=== PATIENT | female | born 1940 | race Caucasian/White ===

== ENCOUNTER → 2017-09-27 17:18 | Outpatient (CLI) | payer MEDICARE, SELFPAY ==
[2017-09-27 18:32] LABS: Amphetamine Urine VISTA NEGATIVE (<1000 ng/mL); Barbiturate Urine VISTA NEGATIVE (< 200 ng/mL); Benzodiazepine Urine VISTA NEGATIVE (< 200 ng/mL); Cocaine Urine VISTA NEGATIVE (< 300 ng/mL); Ecstacy Urine VISTA NEGATIVE (< 500 ng/mL); Methadone Urine VISTA NEGATIVE (< 300 ng/mL); PCP Urine VISTA NEGATIVE (< 25 ng/mL); THC Urine VISTA NEGATIVE (< 50 ng/mL); Vista UDS pH Range 5
== END ==
PROVIDERS: Family Provider Internal Medicine; PCP Internal Medicine; Visit Provider Anesthesiology Pain Medicine
DX: F11.20 Opioid dependence, uncomplicated (principal)
CPT/HCPCS: 80307

== ENCOUNTER → 2017-10-31 13:12 | Outpatient (CLI) | payer MEDICARE, SELFPAY ==
--- NOTE | 2017-10-31 13:30 | SP.MBSS_ITS ---
PRIMARY / SECONDARY DIAGNOSIS: dysphagia (R13.10) REFERRING PHYSICIAN: Gregoria Bae CNP CURRENT DIET: regular textures, thin liquids DENTITION: WFL MENTAL STATUS: WNL RESPIRATORY STATUS: O2 via room air; utilizes O2 at 2L/min in evenings PREVIOUS MODIFIED BARIUM SWALLOW STUDY: REASON FOR REFERRAL: Patient is a 77 year old female referred for a modified barium swallow (MBS) study to objectively assess the Patients oropharyngeal swallow function under fluoroscopy due to reported dysphagia primarily during ingestion of liquids, with the Patient reporting globus sensation with belching leading to occasional reflux into the oral cavity. Patient further reports sensation of oral stasis with improvement in symptoms when lifting the chin during deglutition. Patient reports multiple falls within the last year, with what sounds like vertigo upon description, reports and presents with gait instability and mild shuffling upon ambulation to the fluoroscopy suite. Patient reports involuntary jerking motions of the torso and extremities, again noted during ambulation, though reports uptake at rest during the evenings. Noted mild reduction in emotional response / facial masking, mild reduction in vocal intensity with the Patient somewhat trailing off during longer communication attempts. Patient reports symptoms appearing to progress in nature. Patient currently resides at [facility], 09/12/2017 complete pulmonary function tests secondary to diagnosis of dyspnea revealed moderately severe mixed ventilatory defect with no significant response to bronchodilators and a symmetric reduction diffusing capacity; significant worsening over the last 2+ years. 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 MEDICAL HISTORY: Breast cancer status post mastectomy aromasin therapy (no chemoradiation therapy), chronic obstructive pulmonary disease, emphysema, coronary artery disease status post coronary artery bypass graft and stent placement, acute myocardial infarction, paroxysmal supraventricular and ventricular tachycardia, paroxysmal atrial fibrillation, diastolic heart failure, status post implantation of internal cardiac defibrillator and pacemaker, benign hypertension, hyperlipidemia, diabetes mellitus, hypothyroidism, depression, legally blind, hard of hearing STUDY FINDINGS: Patient participated in a Modified Barium Swallow (MBS) study on 10/31/2017. Dr. Hui was the radiologist present for this evaluation. This study was recorded in the lateral view and images were sent to PACs for storage. The following consistencies were presented to this patient for analysis of oropharyngeal swallow function: thin liquids, pudding, and a regular textured, Jes Doone cookie. Results of the MBS are as follows: PENETRATION / ASPIRATION SCALE (AVILES): 1 = does not enter airway 2 = enters airway/above vocal folds/ejected 3 = enters airway/above vocal folds/not ejected 4 = enters airway/contacts vocal folds/ejected 5 = enters airway/contacts vocal folds/not ejected 6 = enters airway/below vocal folds/ejected 7 = enters airway/below vocal folds/not ejected despite effort 8 = enters airway/below vocal folds/no effort PENETRATION / ASPIRATION SCALE (SCORE): Thin liquid - 5 mL tsp.: 2 Thin liquids via cup (large sip): 2 Thin liquids via cup (single sip): 2 Thin liquids via straw (single sip): 2 Thin liquids via straw (single sip): 2 Thin liquids via straw (chin tuck): 1 Thin liquids via straw (chin tuck): 2 Thin liquids via straw (chin tuck): 1 Pudding via spoon: 1 Regular textured cookie: 1 Thin liquids via straw (chin tuck): 1 IMPRESSION: DIAGNOSIS: mild oropharyngeal dysphagia (R13.12) ORAL PHASE CHARACTERIZED BY: LABIAL SEAL: no labial escape TONGUE CONTROL DURING BOLUS MANIPULATION: intermittent posterior escape of less than half of bolus BOLUS PREPARATION / MASTICATION: slow prolonged chewing/mashing with anterior munching quality BOLUS TRANSPORT / LINGUAL MOTION: repetitive/disorganized tongue motion with intermittent delayed initiation of tongue motion (2-3 seconds) ORAL RESIDUE: trace residue lining oral structures PHARYNGEAL PHASE CHARACTERIZED BY: INITIATION OF PHARYNGEAL SWALLOW: bolus head in pyriforms at first hyoid excursion SOFT PALATE ELEVATION: no bolus between soft palate and pharyngeal wall LARYNGEAL ELEVATION: partial superior movement of thyroid cartilage/partial approximation of arytenoids cartilage to epiglottic petiole ANTERIOR HYOID EXCURSION: complete anterior movement EPIGLOTTIC MOVEMENT: complete epiglottic inversion LARYNGEAL VESTIBULE CLOSURE AT HEIGHT OF SWALLOW: complete laryngeal vestibule closure with no air/contrast in laryngeal vestibule PHARYNGEAL STRIPPING WAVE: pharyngeal stripping wave present / complete PHARYNGOESOPHAGEAL SEGMENT OPENING: complete distension and complete duration with no obstruction of flow TONGUE BASE RETRACTION: no contrast between tongue base and posterior pharyngeal wall PHARYNGEAL RESIDUE: trace residue within or on pharyngeal structures ( pharyngoesophageal segment opening) ESOPHAGEAL PHASE CHARACTERIZED BY: ESOPHAGEAL BOLUS CLEARANCE IN THE UPRIGHT POSITION: mild esophageal retention EFFECTS OF TREATMENT STRATEGIES ATTEMPTED: Chin tuck posture = moderately effective Anterior lean = moderately effective Reduced bolus size = moderately effective DIET TEXTURE RECOMMENDATIONS: Will recommend a regular-soft textured, thin liquid diet. 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 Oral phase primarily marked by suboptimal lingual control with noted mild repetitive lingual motions typically identified in neurologically impaired individuals (i.e. dementia, Parkinsons disease and subtypes) with intermittent delayed initiation of tongue motion (2-3 seconds in length) resulting in intermittent premature bolus loss; and mild mastication inefficiency with slow prolonged chewing / mashing with anterior munching quality (albeit effective). Pharyngeal phase marked by impaired pharyngeal swallow onset timing resulting in suboptimal bolus location upon swallow onset contributing to prandial penetration with consistent laryngeal vestibule pressure generated to expel penetrated material. All deficits ameliorated with bolus volume adjustments and execution of the chin tuck posture. Prominent non- obstructive cricopharyngeal bar located at the C-5 C-6 level. RECOMMENDATIONS: Patient may benefit from further skilled speech-language intervention targeting continued diet texture management; and training / implementation of recommended compensatory strategies. 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 ADDITIONAL COMMENTS/RECOMMENDATIONS: Results and recommendations were discussed with the Patient immediately following MBS completion, with the Patient verbalizing understanding and agreement with all recommendations and education provided. IMAGE COUNT: [id number] G-CODES: SWALLOWING [id number] Current Status: CJ SWALLOWING [id number] Goal Status: CI SWALLOWING [id number] Discharge Status:
--- NOTE | 2017-10-31 13:30 | RAD_ITS ---
STUDY: SWALLOWING STUDY REASON FOR EXAM: Female, 77 years old. Dysphagia. TECHNIQUE: The examination was performed with Speech Pathology in attendance. Under fluoroscopic observation, the patient ingested thin barium, thick barium, barium pudding, and barium coated cracker. FLUOROSCOPY TIME: 1:34 minutes/seconds. 2364 fluoroscopic images were obtained. RADIOLOGIST INVOLVEMENT: Radiologist was present and providing direct supervision. COMPARISON: None. FINDINGS: The following was observed during swallowing of the various mixtures of barium: Thin Barium: Transient penetration with ejection with ingestion of thin liquids. This improves with the use of a straw. Barium Pudding: There was no evidence of aspiration or laryngeal penetration. Barium Coated Cracker: There was no evidence of aspiration or laryngeal penetration. RAD/Swallowing Function w/Video IMPRESSION: Transient penetration with ejection with ingestion of thin liquids. This improves with the use of a straw. The swallow study findings were discussed with the patient by the speech pathologist at the conclusion of the examination. Please see speech pathology report for more information and recommendations. Electronically Signed: Sal Hui MD at 14:11 EDT Tel [phone], Service support ,
== END ==
PROVIDERS: Family Provider Internal Medicine; PCP Internal Medicine; Visit Provider Nurse Practitioner
DX: R13.10 Dysphagia, unspecified (principal)
CPT/HCPCS: 74230; 92611

== ENCOUNTER → 2017-11-01 16:25 | Outpatient (CLI) | payer MEDICARE, SELFPAY ==
--- NOTE | 2017-11-01 16:27 | RAD_ITS ---
STUDY: X-RAY CHEST REASON FOR EXAM: Female, 77 years old. ICD change TECHNIQUE: Frontal and lateral views COMPARISON: January 10, 2016 FINDINGS: There is again noted a left-sided pacemaker. Stable sternotomy wires. The lungs are expanded. There is mild interstitial prominence. Normal size heart. Normal mediastinum and devonte. Normal visualized pulmonary arteries. Calcified aortic arch and descending thoracic aorta. Degenerative changes of the thoracic spine. Normal visualized ribs, clavicles, and shoulders. There is no demonstrated abnormality of the visualized soft tissue structures of the upper abdomen. RAD/Chest PA and Lateral IMPRESSION: Mild pulmonary interstitial prominence. Electronically Signed: Basil Zhang DO at 23:59 EDT Tel [phone], Service support ,
== END ==
PROVIDERS: Family Provider Internal Medicine; PCP Internal Medicine; Visit Provider Nurse Practitioner Family
DX: I25.10 Atherosclerotic heart disease of native coronary artery without angina pectoris (principal); Z95.810 Presence of automatic (implantable) cardiac defibrillator; I47.2 Ventricular tachycardia
CPT/HCPCS: 71046

== ENCOUNTER → 2017-11-01 16:57 | Outpatient (CLI) | payer MEDICARE, SELFPAY ==
[2017-11-01 17:20] LABS: Hematocrit 34.8 % (37-47); Hemoglobin 11.8 g/dl (12.0-15.0); Mean Corp Hgb Conc 33.9 g/gl (32-36); Mean Corpuscular Hgb 37.5 pg (27.0-32.0); Mean Corpuscular Volume 110.5 fL (81-99); Mean Platelet Vol. 13.3 fl (6.2-12.0); Platelet Count 223 K/mm3 (150-450); RBC Distribution Width CV 16.3 % (11.6-14.6); RBC Distribution Width SD 61.9 fl (35.1-43.9); Red Blood Count 3.15 M/mm3 (4.2-5.4); White Blood Count 11.3 K/mm3 (4.4-11.0)
[2017-11-01 17:30] LABS: International Normalized Ratio 1.1
[2017-11-01 17:34] LABS: Scan Indicated on CBC? Y/N NO
[2017-11-01 17:57] LABS: Anion Gap 8 (5-15); BUN 18 mg/dL (7-18); BUN/Creat Ratio 16.4 RATIO (10-20); Calcium,Total 9.4 mg/dL (8.5-10.1); Chloride 104 mmol/L (98-107); EST Glomerular Filtration Rate 51 mL/min (>60); Est Glom Filt Rate - Afr Amer 62 mL/min (>60); Glucose 117 mg/dL (74-106); Potassium 3.9 mmol/L (3.5-5.1); Sodium Level 142 mmol/L (136-145); Thyroid Stim Hormone (TSH) 2.14 uIU/mL (0.358-3.74)
== END ==
PROVIDERS: Family Provider Internal Medicine; PCP Internal Medicine; Visit Provider Nurse Practitioner Family
DX: R53.83 Other fatigue (principal); I25.5 Ischemic cardiomyopathy; Z95.1 Presence of aortocoronary bypass graft; I25.10 Atherosclerotic heart disease of native coronary artery without angina pectoris; R06.02 Shortness of breath; Z95.810 Presence of automatic (implantable) cardiac defibrillator; I47.2 Ventricular tachycardia
CPT/HCPCS: 71046; 80048; 84443; 85027; 85610

== ENCOUNTER → 2017-11-08 10:35 | Day surgery (SDC) | payer MEDICARE, SELFPAY ==
[2017-11-07 12:05] VITALS: BMI 25.9
--- NOTE | 2017-11-08 13:01 | OP.PCM_ITS ---
Operative Report Date of Procedure: 11/08/17 Preoperative diagnosis is device at end of life for normal battery depletion. Postoperative diagnosis same as above. After informed consent and IV antibiotics the patient was brought to the [facility] catheterization laboratory and the skin over the device was prepped and draped in the usual sterile manner. Intermittent boluses of Versed, fentanyl and propofol were used for sedation and analgesia as well as 1% subcutaneous lidocaine. An incision was made over the pre-existing device. Using blunt and Bovie dissection the pocket was opened and the device was removed. Careful attention was paid not to injure the pre-existing leads. The leads were removed from the device header and they were interrogated. There is normal lead function. Hemostasis was obtained. The pocket was flushed with antibiotic solution. The sponge and needle count were correct. The new device was brought to the field. The leads were placed in the appropriate position in the header and secured by the set screw. The device is a single chamber [place] TOOVIA dual coil ICD. The leads and the device were then placed in the pocket. The pocket was closed with a deep layer of running 2-0 Vicryl, a superficial layer of running 4-0 Vicryl, skin with Steri-Strips which were covered with a rolled 4 x 4 and Tegaderm. Patient left the room with the device programmed to proper parameters and there were no complications. All lead parameters were tested and found to be functionally normal. Lead and device serial and model numbers are available in the chart documents provided by the device company sales donor recruitment representative procedure summary.
== END ==
PROVIDERS: Family Provider Internal Medicine; PCP Internal Medicine; Visit Provider Internal Medicine Cardiovascular Disease
DX: Z45.010 Encounter for checking and testing of cardiac pacemaker pulse generator [battery] (principal); I25.5 Ischemic cardiomyopathy; I47.2 Ventricular tachycardia; I38 Endocarditis, valve unspecified; I11.0 Hypertensive heart disease with heart failure; I50.42 Chronic combined systolic (congestive) and diastolic (congestive) heart failure; I47.1 Supraventricular tachycardia; I25.2 Old myocardial infarction; I25.119 Atherosclerotic heart disease of native coronary artery with unspecified angina pectoris; I07.1 Rheumatic tricuspid insufficiency; I35.0 Nonrheumatic aortic (valve) stenosis; J44.9 Chronic obstructive pulmonary disease, unspecified; E11.9 Type 2 diabetes mellitus without complications; I48.0 Paroxysmal atrial fibrillation; M79.604 Pain in right leg; E78.5 Hyperlipidemia, unspecified; E03.9 Hypothyroidism, unspecified; Z85.3 Personal history of malignant neoplasm of breast; Z95.810 Presence of automatic (implantable) cardiac defibrillator; Z87.891 Personal history of nicotine dependence; Z79.4 Long term (current) use of insulin; Z79.82 Long term (current) use of aspirin; Z79.899 Other long term (current) drug therapy
CPT/HCPCS: 33262; 93641; 99152; 99153; J3010; J7040; J7050

== ENCOUNTER → 2017-11-13 06:48 | Outpatient (CLI) | payer MEDICARE, SELFPAY ==
--- NOTE | 2017-11-13 10:00 | STRESSREP ---
Stress Test Report Pharmacologic myocardial perfusion stress test. 77-year-old lady with a history of ischemic cardiomyopathy. Stress protocol: EKG demonstrates normal sinus rhythm with a rate of 64 bpm normal intervals and noted resting blood pressure is 130/62 meters of mercury. 0.4 mg regadenoson was infused per usual protocol followed by rapid intravenous saline flush injection continuous EKG monitoring was performed. Patient maintained sinus rhythm throughout the recording. The maximum heart rate attained was 76 bpm which was 52% of maximum predicted heart rate the maximum workload was 1 metabolic equivalent. Myocardial perfusion protocol. 11.2 mCi of technetium 99m sestamibi was injected at rest. 0.4 mg regadenoson was infused per usual protocol peak infusion 33.7 mCi of technetium 99m sestamibi was injected. Stress images were obtained stress and rest images were reconstructed and compared in the short axis vertical long and horizontal long axis. Gated images were also obtained. Perfusion SPECT analysis. Review of the stress images demonstrate normal uptake of tracer noted in the anterior septum anterior wall and anterolateral wall. There is a large defect involving the entire inferior wall from base to apex. The resting images demonstrate a similar patent. The above is suggestive of a previous extensive inferior infarct. No improvement is noted to suggest reversibility or ischemia. Gated SPECT analysis. The gated ejection fraction is noted to be 44% with inferior hypokinesis present. Review of the raw data also demonstrates a possible mass seen within the left chest cavity. Would recommend that this be further investigated with a CT scan. Of note is the fact that patient has a history of breast cancer. Conclusion: Pharmacologic myocardial perfusion stress test with evidence of previous inferior infarct. Ischemic cardiomyopathy. No ischemia noted. Mass noted within left chest cavity.
== END ==
PROVIDERS: Family Provider Internal Medicine; PCP Internal Medicine; Visit Provider Nurse Practitioner Family
DX: I25.5 Ischemic cardiomyopathy (principal); R91.8 Other nonspecific abnormal finding of lung field; Z95.1 Presence of aortocoronary bypass graft; I25.10 Atherosclerotic heart disease of native coronary artery without angina pectoris; R06.02 Shortness of breath
CPT/HCPCS: 78452; 93017; A9500; A4216; J2785

== ENCOUNTER → 2017-11-27 16:06 | Outpatient (CLI) | payer MEDICARE, SELFPAY ==
--- NOTE | 2017-11-27 16:08 | CT_ITS ---
STUDY: CT ABDOMEN AND PELVIS WITH CONTRAST REASON FOR EXAM: Female, 77 years old. Left-sided mass. History of breast cancer. RADIATION DOSAGE (If Supplied By Facility): CTDIvol = ( 12.17 ) mGy, DLP = ( 917.97 ) mGycm TECHNIQUE: Transaxial images were obtained from the dome of the diaphragm to the symphysis pubis with oral contrast. 100 ml of Isovue 300 contrast was administered. Sagittal and coronal images were reconstructed. Individualized dose optimization techniques were used for this CT. COMPARISON: CT abdomen and pelvis without contrast February 24, 2016. FINDINGS: Mild, chronic-appearing interstitial densities in the inferior visualized lung bases. Leads of the cardiac pacemaker/AICD are noted in the right chambers of the heart. There is atherosclerotic calcification of the visualized distal descending thoracic aorta. Normal liver. The patent portal vein diameter is 1 cm. The gallbladder is contracted. Normal spleen. Normal pancreas. Normal bilateral adrenal glands. Well-defined 2.5 x 2.9 x 2.1 cm mildly exophytic cortical cyst seen again at the lower pole of the right kidney. Normal left kidney. No hydronephrosis. Normal visualized stomach. Normal small intestine. There are multiple sigmoid colonic diverticula consistent with diverticulosis. The appendix is visualized and appears normal. There is diffuse atherosclerotic calcification of the abdominal aorta and iliofemoral arteries, without a demonstrated aneurysm. There are bilateral common iliac artery stents that may be occluded. Normal inferior vena cava. Normal retroperitoneum. Normal urinary bladder. Normal visualized uterus. Normal visualized adnexa. There is a small umbilical hernia containing fat. Fat is seen filling the bilateral inguinal canals without significant herniation below the inferior inguinal rings There is a 9.5 degree dextroscoliosis of the spine at L1-2, and 12.5 degree levoscoliosis centered at L5 There are degenerative changes of the spine at L5-S1, including wide base posterior annular disc bulge and near circumferential endplate osteophytes. CT/Abdomen/Pelvis WITH Contrast IMPRESSION: 1. No findings suspicious for metastatic breast cancer. 2. Atherosclerotic calcification of the thoracoabdominal aorta and iliofemoral arteries without demonstrated aneurysm. Prior endovascular stenting of the bilateral common iliac arteries with suspicion of bilateral stent occlusion. The aortic calcification also portends significant risk for future cardiovascular event, Abdominal Aortic Calcific Deposits Are an Important Predictor of Vascular Morbidity and Mortality; Javon Murphy, et al. Circulation, 2001;103:3532-7736. 3. Stable 2.9 cm cortical cyst at the lower pole of the right kidney. No hydronephrosis. 4. Sigmoid diverticulosis without acute diverticulitis. No sign of bowel obstruction. The appendix is normal. 5. Stable degenerative changes and minor S-scoliosis of the lumbar spine, as described Electronically Signed: Reji Rivers MD at 19:17 EDT , Service support ,
--- NOTE | 2017-11-27 16:08 | CT_ITS ---
STUDY: CT CHEST WITH CONTRAST/THORAX REASON FOR EXAM: Female, 77 years old. Left-sided mass. History of breast cancer. RADIATION DOSAGE (If Supplied By Facility): CTDIvol = ( 12.17 ) mGy, DLP = ( 917.97 ) mGycm TECHNIQUE: Transaxial imaging was performed following intravenous administration of 100 ml of Isovue 300 contrast material. Multiplanar coronal and sagittal images were reformatted. Individualized dose optimization techniques were used for this CT. COMPARISON: PA and lateral chest x-ray November 01, 2017. FINDINGS: The generator of a cardiac pacemaker/ICD is again seen in the soft tissues of the left anterior chest wall. This leads extend without apparent interruption in the subclavian vein to the right heart. There is hyperinflation of the lungs and diffuse centrilobular emphysematous changes, consistent with chronic obstructive lung disease (COPD). No pneumonic infiltrate or pulmonary mass. There is no demonstrated pleural abnormality. There is mild cardiac enlargement. There are calcifications of the coronary arteries. Sternal cerclage wires and vascular clips are present from a prior sternotomy and coronary artery bypass graft procedure (CABG). The bypasses to the left anterior descending coronary artery and inferior right coronary artery are grossly patent. Normal mediastinum. Normal hilar regions. Normal enhanced pulmonary arteries. There is atherosclerotic calcification of the aortic arch, proximal brachiocephalic arteries, and descending thoracic aorta. 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 Severe compression fracture deformity of the T8 vertebra, with resulting exaggerated mid thoracic kyphosis. There are multi-level degenerative changes of the thoracic spine. 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 The left breast is absent, consistent with prior mastectomy, and there are a few surgical clips in the tissues of the left anterior chest wall. There is a 5.15 x 2.8 x 2.75 cm soft tissue mass consistent with an enlarged lymph node in the subcutaneous tissues of the lateral left chest wall/anterior axilla. A few additional adjacent enlarged nodes are also present. There is no demonstrated abnormality of the visualized upper abdomen. CT/Chest WITH Contrast IMPRESSION: 1. Bilateral mastectomy. There are enlarged lateral left chest wall/axillary lymph nodes, strongly worrisome for metastatic disease. The largest of these is 5.15 cm in greatest diameter. 2. Atherosclerotic calcifications of the coronary arteries, thoracic aorta, and proximal brachiocephalic arteries. 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 3. Prior median sternotomy and CABG. The bypass grafts are grossly patent. 4. Mild cardiac enlargement. Dual-lead left subclavian cardiac pacemaker/AICD in place. 5. Hyperexpansion of the lungs and centrilobular emphysematous changes, consistent with COPD. No pneumonic infiltrate. 6. Severe compression fracture deformity of the T8 vertebra, which was also described on plain films of the thoracic spine March 01, 2016 (images of that exam not available for review at the time of this dictation). An old fracture of the anterior right sixth rib with chronic nonunion also incidentally noted. Electronically Signed: Reji Rivers MD at 19:03 EDT , Service support ,
== END ==
PROVIDERS: Family Provider Internal Medicine; PCP Internal Medicine
DX: C50.919 Malignant neoplasm of unspecified site of unspecified female breast (principal)
CPT/HCPCS: 71260; 74177; Q9967

== ENCOUNTER → 2017-12-28 18:13 | Outpatient (CLI) | payer MEDICARE, SELFPAY ==
--- NOTE | 2017-12-28 18:10 | CT_ITS ---
STUDY: CT BRAIN WITHOUT CONTRAST REASON FOR EXAM: Female, 77 years old. Dementia. Hx breast cancer with surgery and chemotherapy, hypertension and diabetes. RADIATION DOSAGE (If Supplied By Facility): CTDIvol = ( 44.99 ) mGy, DLP = ( 796.11 ) mGycm TECHNIQUE: Transaxial CT imaging of the brain was performed without administration of intravenous contrast material. COMPARISON: 8.5.16 FINDINGS: Normal soft tissue structures. Normal calvarium. There are calcifications noted in the distal vertebral arteries. There are calcifications noted in the cavernous carotid arteries. This is consistent for atherosclerotic disease. There is mild cerebral atrophy with widening of the extra-axial spaces and ventricular dilatation. There are areas of decreased attenuation within the white matter tracts of the supratentorial brain, consistent with microvascular disease changes. Normal basal ganglia and thalami. Normal brainstem. There is mild cerebellar atrophy. There is no intracranial hemorrhage. There are no findings of an acute ischemic infarction. Normal visualized paranasal sinuses. CT/Brain/Head without Contrast IMPRESSION: Chronic involutional changes of the brain. There are no acute findings. Electronically Signed: Mario Perez MD at 18:59 EDT , Service support ,
== END ==
PROVIDERS: Family Provider Internal Medicine; PCP Internal Medicine; Visit Provider Psychiatry & Neurology Neurology
DX: F03.90 Unspecified dementia, unspecified severity, without behavioral disturbance, psychotic disturbance, mood disturbance, and anxiety (principal)
CPT/HCPCS: 70450

== ENCOUNTER 2018-02-12 16:42 | Emergency (ER) | payer MEDICARE, SELFPAY ==
[2018-02-12 16:43] VITALS: BP 119/47; PULSE 66; RESP 15; TEMP 35.5; O2SAT 98; BMI 24.0
--- NOTE | 2018-02-12 17:42 | CT_ITS ---
STUDY: CT BRAIN WITHOUT CONTRAST REASON FOR EXAM: Female, 77 years old. Vision changes. RADIATION DOSAGE (If Supplied By Facility): CTDIvol = ( 44.99 ) mGy, DLP = ( 796.11 ) mGycm TECHNIQUE: Transaxial CT imaging of the brain was performed without administration of intravenous contrast material. Individualized dose optimization techniques were used for this CT. COMPARISON: December 28, 2017 FINDINGS: Normal soft tissue structures. Normal calvarium. There is mild cerebral atrophy with widening of the extra-axial spaces and ventricular dilatation. There are areas of decreased attenuation within the white matter tracts of the supratentorial brain, consistent with microvascular disease changes. Normal basal ganglia and thalami. Normal brainstem. Normal cerebellum. There is no intracranial hemorrhage. There are no findings of an acute ischemic infarction. Normal visualized paranasal sinuses. CT/Brain/Head without Contrast IMPRESSION: Chronic involutional changes of the brain. Small vessel ischemia. Electronically Signed: Tona Singer MD at 18:32 EDT Tel , Service support ,
[2018-02-12 18:18] LABS: Absolute Lymphocyte Count 1.67 X10^3/ul (0.83-4.51); Absolute Neutrophil Count 2.8 X10^3/uL (2.0-7.7); Basophil# 0.02 X10^3/uL; Basophil% 0.4 % (0-1); Eosinophil# 0.16 X10^3/uL; Eosinophils% 3.2 % (0-5); Hematocrit 32.3 % (37-47); Hemoglobin 10.8 g/dl (12.0-15.0); Lymphocyte # 1.67 X10^3/ul (4.0); Lymphocyte % 33.3 % (19-41); Mean Corp Hgb Conc 33.4 g/gl (32-36); Mean Corpuscular Hgb 35.6 pg (27.0-32.0); Mean Corpuscular Volume 106.6 fL (81-99); Mean Platelet Vol. 11.8 fl (6.2-12.0); Monocyte# 0.35 X10^3/uL; Neutrophil # 2.81 X10^3/uL (2.7-7.7); Neutrophil % 55.9 % (47-70); Platelet Count 312 K/mm3 (150-450); RBC Distribution Width CV 16.1 % (11.6-14.6); RBC Distribution Width SD 61.6 fl (35.1-43.9); Red Blood Count 3.03 M/mm3 (4.2-5.4)
[2018-02-12 18:21] LABS: POSITIVE COUNT NO; POSITIVE DIFFERENTIAL NO; POSITIVE MORPHOLOGY NO
[2018-02-12 18:29] LABS: ALB/GLOB Ratio 1.1 RATIO (0.9-2.4); AST(SGOT) 88 U/L (15-37); Alanine Aminotransfer ALT/SGPT 60 U/L (13-56); Albumin, Serum 3.9 g/dL (3.2-5.0); Alkaline Phosphatase 36 U/L (45-117); Anion Gap 6 (5-15); BUN 21 mg/dL (7-18); BUN/Creat Ratio 17.2 RATIO (10-20); Calcium,Total 9.6 mg/dL (8.5-10.1); Chloride 105 mmol/L (98-107); Creatinine, Serum 1.22 mg/dL (0.55-1.02); EST Glomerular Filtration Rate 46 mL/min (>60); Est Glom Filt Rate - Afr Amer 55 mL/min (>60); Estimated Creatinine Clearance 33.88 ml/min; Globulin 3.7 g/dL (2.2-4.2); Glucose 103 mg/dL (74-106); Potassium 4.1 mmol/L (3.5-5.1); Protein, Total 7.6 g/dL (6.4-8.2); Sodium Level 140 mmol/L (136-145)
[2018-02-12 19:37] VITALS: BP 105/45; PULSE 64; RESP 18; O2SAT 96
--- NOTE | 2018-02-12 20:33 | NURSING ---
CALLED A [facility] FOR THE PT. SALEEM LEON, STATED THEY WILL BE HERE IN AN HOUR.
--- NOTE | 2018-02-12 20:34 | NURSING ---
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
--- NOTE | 2018-02-12 21:00 | ED.DCSUM_ITS ---
- ER Visit Summary Date of Service: 02/12/18 Chief Complaint: Right eye vision changes History of Present Illness: The patient is a 77 F with 2 day history of progressive vision loss in her right eye. She is on chemotherapy for breast cancer. She has no pain, no weakness or numbness in any extremities. No vertigo or disequilibrium. Physical Examination: Otherwise unremarkable exam neurologically she has decreased vision in her right eye but no focal vision decrease. She can move her eye in all directions. There is no external signs of trauma or conjunctivitis or erythema. Normal strength and sensation of all the extremities. Normal speech. Regular rate rhythm clear lungs abdomen soft and nontender. Emergency Department Course and Treatment: Workup including a CT were grossly unremarkable except for microvascular disease, I talked with ophthalmology and they will follow-up with her tomorrow morning at 8 AM that is in about 11 hours. Patient will be discharged in stable condition. Impression: Progressive right eye vision loss This note was generated with [employer] dictation software. It may contain incorrect words, spelling, and punctuation that were not noted in review of the chart prior to signing ED Disposition - Plan for ED Patient: Disposition: Home or Assisted Living Chief Complaint: Vision Prob Instructions: What Is Low Vision? Referrals: Boby Bajwa MD [STAFF PHYSICIAN] - 1 Day
[2018-02-12 21:13] VITALS: BP 107/80; PULSE 76; RESP 16; O2SAT 96
== END 2018-02-12 21:13 | disposition home or self-care (01) ==
PROVIDERS: Emergency Provider Emergency Medicine
DX: H54.61 Unqualified visual loss, right eye, normal vision left eye (principal); R11.0 Nausea; R19.7 Diarrhea, unspecified; R53.1 Weakness; C50.919 Malignant neoplasm of unspecified site of unspecified female breast; Z79.82 Long term (current) use of aspirin; Z79.899 Other long term (current) drug therapy
CPT/HCPCS: 70450; 80053; 85025; 99283

== ENCOUNTER 2018-03-04 20:20 | Observation (INO) | payer MEDICARE, SELFPAY ==
[2018-03-04 20:21] VITALS: BP 162/60; PULSE 84; RESP 16; TEMP 36.9; O2SAT 96; BMI 26.7
--- NOTE | 2018-03-04 20:36 | EKG12_ITS ---
Test Reason : CP Blood Pressure : / mmHG Vent. Rate : 080 BPM Atrial Rate : 080 BPM P-R Int : 154 ms QRS Dur : 110 ms QT Int : 426 ms P-R-T Axes : 020 051 078 degrees QTc Int : 491 ms Normal sinus rhythm Normal ECG Confirmed by DAYNA KILLIAN, COBY ([id number]), newspaper copy editor IZAIAH HERNANDEZ ([id number]) on 03/06/2018 2:14:36 PM Referred By: Jay Garcia Confirmed By:COBY MCINTOSH MD
--- NOTE | 2018-03-04 20:43 | RAD_ITS ---
STUDY: X-RAY CHEST REASON FOR EXAM: Female, 77 years old. Chest pain TECHNIQUE: Single AP portable view of the chest. COMPARISON: November 01, 2017 chest x-ray FINDINGS: There is a left-sided pacer defibrillator. There is a 1.7 cm focus of density in the right lower lobe which may represents a small focal pleural plaque or summation of shadows. Sternal cerclage wires and vascular clips are present from a prior sternotomy and coronary artery bypass graft procedure (CABG). Normal mediastinum and devonte. Normal visualized pulmonary arteries. Normal visualized aortic arch and descending thoracic aorta. There are diffuse degenerative changes of the visualized thoracic spine. Normal visualized ribs, clavicles, and shoulders. There is no demonstrated abnormality of the visualized soft tissue structures of the upper abdomen. RAD/Chest 1 View (Portable) IMPRESSION: Defibrillator status post CABG sternotomy. No visualized focal infiltrate. Probable focal plaque in the right lower lobe versus indeterminate infiltrate or nodule not definitively seen on prior study. Electronically Signed: Tisha Hawkins MD at 21:14 EDT Tel , Service support ,
[2018-03-04 21:08] LABS: Absolute Lymphocyte Count 2.22 X10^3/ul (0.83-4.51); Absolute Neutrophil Count 3.7 X10^3/uL (2.0-7.7); Basophil# 0.16 X10^3/uL; Basophil% 2.2 % (0-1); Eosinophil# 0.19 X10^3/uL; Eosinophils% 2.6 % (0-5); Hematocrit 29.6 % (37-47); Hemoglobin 10.1 g/dl (12.0-15.0); Lymphocyte # 2.22 X10^3/ul (4.0); Lymphocyte % 30.7 % (19-41); Mean Corp Hgb Conc 34.1 g/gl (32-36); Mean Corpuscular Hgb 36.5 pg (27.0-32.0); Mean Corpuscular Volume 106.9 fL (81-99); Mean Platelet Vol. 11.6 fl (6.2-12.0); Monocyte# 0.86 X10^3/uL; Monocyte% 11.9 % (0-10); Neutrophil # 3.74 X10^3/uL (2.7-7.7); Neutrophil % 51.9 % (47-70); POSITIVE COUNT NO; POSITIVE DIFFERENTIAL NO; POSITIVE MORPHOLOGY NO; Platelet Count 280 K/mm3 (150-450); RBC Distribution Width CV 16.8 % (11.6-14.6); RBC Distribution Width SD 64.7 fl (35.1-43.9); Red Blood Count 2.77 M/mm3 (4.2-5.4); White Blood Count 7.2 K/mm3 (4.4-11.0)
[2018-03-04 21:15] LABS: Anion Gap 5 (5-15); BUN 14 mg/dL (7-18); BUN/Creat Ratio 15.3 RATIO (10-20); Calcium,Total 8.8 mg/dL (8.5-10.1); Chloride 103 mmol/L (98-107); Creatinine, Serum 0.92 mg/dL (0.55-1.02); EST Glomerular Filtration Rate 63 mL/min (>60); Est Glom Filt Rate - Afr Amer 77 mL/min (>60); Estimated Creatinine Clearance 44.92 ml/min; Glucose 122 mg/dL (74-106); Potassium 2.8 mmol/L (3.5-5.1); Sodium Level 140 mmol/L (136-145)
[2018-03-04 21:55] VITALS: BP 151/71; PULSE 74; RESP 20; O2SAT 96
--- NOTE | 2018-03-04 22:29 | ED.DCSUM_ITS ---
- ER Visit Summary Date of Service: 03/04/18 Chief Complaint: Chest pain and shortness of breath History of Present Illness: The patient is a 77 F who has chest pain shortness of breath. Been going on for 2 days. She states it is a heaviness in her sternal and left parasternal area. It is getting a little bit better now that she is here in the hospital. It is worse with exertion. She has associated dyspnea with this. She does have a history of coronary artery disease and has stents in place. 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 She also has a recent 20 pound weight loss due to anorexia. She does not have a primary care physician as she was recently fired from her previous one. Physical Examination: Vital signs reviewed. HEENT exam unremarkable. Heart is regular rate and rhythm without murmurs. Lungs are clear to auscultation. There is left-sided chest tenderness to palpation. Abdomen is soft and nontender. Extremities reveal no edema. Peripheral pulses are equal. Skin exam normal. Neurologic exam normal. Test Results: EKG is normal sinus rhythm with nonspecific ST and T-wave changes laterally. Chest x-ray reveals chronic changes with possible pulmonary nodule. Troponin 0.052. Potassium 2.8. Emergency Department Course and Treatment: Patient was given aspirin. Due to her risk factors patient will be admitted to the hospital Treatment Plan: [] Disposition: Admit Impression: Chest pain, elevated troponin, hypokalemia This note was generated with [employer] dictation software. It may contain incorrect words, spelling, and punctuation that were not noted in review of the chart prior to signing ED Disposition - Plan for ED Patient: Chief Complaint: Chest Pain Referrals: Care Physician,No Primary [Primary Care Provider] -
--- NOTE | 2018-03-04 22:59 | NURSING ---
Called [facility] ED charge nurseany to send patient to the floor.
--- NOTE | 2018-03-04 23:04 | PCM.HP.STD ---
Problem List (1) Hypokalemia Status: Acute (2) Chest pain Status: Acute History of Present Illness Date of Admission: 03/04/18 Chief Complaint: chest pain The patient is a 77 year old F with a significant history of COPD, hypertension, diabetes, CAD status post CABG and stents; a defibrillator/pacemaker; A. fib and previous history of breast cancer status post mastectomy now with lymph node spread and possible metastatic disease who presents with progressively worsening chest pain and shortness of breath ?2 days. She describes a chest pain as heaviness. It is episodic and it comes on with activity, excitement or when she is upset. Associated with her symptoms is severe tiredness. She denies nausea, vomiting or diaphoresis. A stress test in October of this year was unremarkable. Cardiac enzymes at the ED was elevated. Past Medical History Past Medical History (Chronic Problems): Chronic Problems (Last Reviewed 03/05/18 @ 01:22 by Jean Regalado MD) Chronic systolic congestive heart failure (Chronic) Nonrheumatic mitral valve regurgitation (Chronic) Nonrheumatic tricuspid (valve) insufficiency (Chronic) 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) ICD Implant November 2002; 01/20/10 ICD generator replacement; Presence of stent in coronary artery (Chronic) PTCA/stent to mid RCA 11/30/01; Atherosclerotic heart disease of [place] coronary artery without angina pectoris (Chronic) PTCA/stent to mid RCA in November 2001; CABG in November 2002 with DAVIS to LAD, SVG to obtuse marginal, and SVG to PDA; Ischemic cardiomyopathy (Chronic) Ventricular tachyarrhythmia (Chronic) Palpitations (Chronic) Aortocoronary bypass status (Chronic) CABG 12/08/02, DAVIS to LAD, SVG to OBtuse marginal & to PDA; Old myocardial infarction (Chronic) Angina pectoris (Chronic) HTN (hypertension) (Chronic) Diabetes mellitus (Chronic) Paroxysmal a-fib (Chronic) Ventricular tachycardia (paroxysmal) (Chronic) HLD (hyperlipidemia) (Chronic) Hypothyroidism (Chronic) Paroxysmal SVT (supraventricular tachycardia) (Chronic) Medical History: Medical History (Last Reviewed 03/05/18 @ 01:22 by Jean Regalado MD) Chronic systolic congestive heart failure (Chronic) I50.22 Nonrheumatic mitral valve regurgitation (Chronic) I34.0 Nonrheumatic tricuspid (valve) insufficiency (Chronic) I36.1 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) Z95.810 ICD Implant November 2002; 01/20/10 ICD generator replacement; Presence of stent in coronary artery (Chronic) Z95.5 PTCA/stent to mid RCA 11/30/01; Atherosclerotic heart disease of [place] coronary artery without angina pectoris (Chronic) I25.10 PTCA/stent to mid RCA in November 2001; CABG in November 2002 with DAVIS to LAD, SVG to obtuse marginal, and SVG to PDA; Ischemic cardiomyopathy (Chronic) I25.5 Ventricular tachyarrhythmia (Chronic) I47.2 Palpitations (Chronic) R00.2 Old myocardial infarction (Chronic) I25.2 Angina pectoris (Chronic) I20.9 Monomorphic ventricular tachycardia (Acute) I47.2 HTN (hypertension) (Chronic) I10 Diabetes mellitus (Chronic) E11.9 Paroxysmal a-fib (Chronic) I48.0 Pre-syncope (Acute) Syncope (Acute) R55 Shortness of breath (Acute) R06.02 Ventricular tachycardia (paroxysmal) (Chronic) I47.2 HLD (hyperlipidemia) (Chronic) E78.5 Hypothyroidism (Chronic) E03.9 Paroxysmal SVT (supraventricular tachycardia) (Chronic) I47.1 Body mass index (bmi) 26.0-26.9, adult Z68.26 Breast cancer C50.919 COPD (chronic obstructive pulmonary disease) J44.9 Acute [place], inferoposterior wall, subsequent episode of care (Inactive) I21.19 Debility (Inactive) R53.81 Right leg pain (Inactive) M79.604 Shortness of breath R06.02 Allergies No Known Allergies Allergy (Verified 03/04/18 20:28) Home Medications: Ambulatory Orders Medication Instructions Recorded Aspirin 325 mg PO DAILY@0800 03/24/16 Duloxetine Hcl [Cymbalta] 60 mg PO DAILY 03/24/16 Hydrochlorothiazide [Hctz] 25 mg PO DAILY 03/24/16 Isosorbide Mononitrate [Imdur] 120 mg PO DAILY 03/24/16 Levothyroxine [Synthroid] 75 mcg PO DAILY 03/24/16 Metoprolol Tartrate [Lopressor 50 mg PO BID 03/24/16 (beta chandra)] Omeprazole [Prilosec] 20 mg PO DAILY 03/24/16 Vit A/Vit C/Vit E/Zinc/Copper 1 ea PO QHS 03/24/16 [Preservision Areds Softgel] Cholecalciferol (Vitamin D3) 50,000 unit PO QWEEK 09/18/16 [Vitamin D] Clopidogrel Bisulfate [Plavix] 75 mg PO DAILY 09/18/16 fluticasone 50 mcg/actuation nasal 2 spray INTRANASAL QDAY PRN 08/29/17 spray,suspension promethazine 12.5 mg tablet 12.5 mg PO Q8H PRN tab 08/29/17 nitroglycerin 0.4 mg sublingual 0.4 mg SUBLINGUAL Q5M PRN 10/30/17 tablet pentoxifylline ER 400 mg 400 mg PO BID 10/30/17 tablet,extended release bumetanide 0.5 mg tablet 0.5 mg PO QDAY 12/03/17 exemestane 25 mg tablet 25 mg PO QDAY 12/03/17 potassium chloride ER 10 mEq 40 meq PO BID tab 12/03/17 tablet,extended release pravastatin 40 mg tablet 40 mg PO QHS 12/03/17 pregabalin 100 mg capsule 100 mg PO BID 12/03/17 valsartan 160 mg tablet 160 mg PO QDAY #30 tab 12/05/17 fenofibrate 160 mg tablet 160 mg PO QDAY #30 tab 12/14/17 Surgical History: Surgical History (Last Updated 02/19/18 @ 09:54 by Becca Grant) Aortocoronary bypass status (Chronic) Z95.1 CABG 12/08/02, DAVIS to LAD, SVG to OBtuse marginal & to PDA; Postsurgical percutaneous transluminal coronary angioplasty (PTCA) status Z98.61 PTCA/stent to mid RCA 11/30/01; S/P implantation of automatic cardioverter/defibrillator (AICD) Z95.810 ICD Implant November 2002; 01/20/10 ICD generator replacement; Surgical History: coronary bypass surgery, mastectomy, pacemaker implantation Psychiatric History: No pertinent psych hx 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 History: No pertinent GLOBAL 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 history Smoking Status: Former smoker Tobacco Use: Non-smoker - *Family History Maternal Family History: Family History (Last Reviewed 03/05/18 @ 01:23 by Jean Regalado MD) Son Asthma Father Cancer Mother Cancer Brother Cancer History Items: No pertinent history Paternal Family History: Family History (Last Reviewed 03/05/18 @ 01:23 by Jean Regalado MD) Son Asthma Father Cancer Mother Cancer Brother Cancer History Items: No pertinent history Review of Systems Constitutional: Reports: Malaise, Weakness Eyes: Denies: Blurred vision, Pain HEENT: Denies: Head Aches, Sinus Congestion, Sinus Drainage Cardiovascular: Reports: Chest Pain, Palpitations Respiratory: Reports: Shortness of breath upon exertion Gastrointestinal: Denies: Abdominal Pain, Nausea, Vomiting Genitourinary: Denies: Dysuria Musculoskeletal: Denies: Joint Pain, Joint Tenderness Skin: Denies: Rash, Wounds Neurological: Denies: Numbness, Tingling, Focal weakness Psychiatric: Denies: Anxiety, Depression, Homicidal Ideations, Suicidal Ideations Hematologic/ Lymphatic: Denies: Petechiae, Purpura VTE Information - Inpt Only VTE Present on Admission: No VTE Mechan Device Prophylaxis: None VTE Pharm Prophylaxis ordered?: Yes Patient Problems: Active and Suspected Problems (Last Reviewed 03/05/18 @ 01:22 by Jean Regalado MD) Hypokalemia (Acute) Chest pain (Acute) - Physical Exam General: Alert HEENT: Atraumatic, PERRLA, EOMI, Normocephalic Neck: Supple, No JVD, Negative Carotid Bruits Lungs: Clear to auscultation, Normal air movement Cardiovascular: Regular rate, Normal S1, Normal S2, No rub noted, No Gallop, - - A tender chestshe attributes to her fibromyalgia and he states that this is different from pain inside her chest. Bilateral mastectomy Abdomen: Bowel Sounds Present, Soft, Non Tender Extremities: No edema, Capillary Refill Less than 3 Seconds Skin: No rashes, No breakdown Musculoskeletal: No Tenderness to Palpation of Joints or Extremities Neurological: Cranial nerves II-XII grossly intact Psych/Mental Status: Normal Affect, Appropriate Vital Signs Temp Pulse Resp BP Pulse Ox 98.5 F 74 20 H 151/71 H 96 03/04/18 20:21 03/04/18 21:55 03/04/18 21:55 03/04/18 21:55 03/04/18 21:55 Assessment/Plan All Active Problems (Last Reviewed 03/05/18 @ 01:22 by Jean Regalado MD) Hypokalemia (Acute) Chest pain (Acute) Monomorphic ventricular tachycardia (Acute) Pre-syncope (Acute) Syncope (Acute) Shortness of breath (Acute) The patient is a 77 year old F with a significant history of COPD, hypertension, diabetes, CAD status post CABG and stents; a defibrillator/pacemaker; A. fib and previous history of breast cancer status post mastectomy now with lymph node spread and possible metastatic disease who presents with progressively worsening chest pain and shortness of breath ?2 days. Chest pain Admit to a monitored bed on PCU SL NTG 0.4 mg prn as needed for chest pain Morphine as needed for chest pain Plavix and aspirin continued Imdur and metoprolol continued Diovan and Pravastatin continued Serial cardiac enzymes Home beta-blockers continued In view of negative stress test in October will not order stress test at this time. Since he is a known patient of [facility], cardiology has been consulted. Hypokalemia Home hydrochlorothiazide and Bumex held We will continue home potassium 40 mEq twice daily. Additional p.o. potassium and IV potassium ordered. Repeat BMP and magnesium in a.m. Hypothyroidism Home Synthroid continue In view of her tiredness and current symptoms TSH ordered. Her tiredness could also be due to her cancer. Hypertension Diovan, Imdur and metoprolol ordered. Hydralazine as needed. Abnormal chest x-ray. We will order a CAT scan because of right lower lobe density seen on chest x-ray; and which was described as new. History of PAD Pentoxifylline continued History of breast cancer with likely metastatic disease The patient to follow up with her oncology outpatient. DVT prophylaxis with subcutaneous Lovenox. Code Visit Inpatient E&M: 93004 Init Hosp L2
[2018-03-04 23:29] VITALS: BMI 23.8; BMI 26.8
[2018-03-04 23:31] VITALS: BP 159/68; PULSE 65; RESP 18; TEMP 36.7; O2SAT 96
[2018-03-04 23:42] VITALS: PULSE 76
--- NOTE | 2018-03-04 23:44 | EKG12_ITS ---
Test Reason : CP REPEAT Blood Pressure : / mmHG Vent. Rate : 075 BPM Atrial Rate : 077 BPM P-R Int : 162 ms QRS Dur : 112 ms QT Int : 434 ms P-R-T Axes : -02 046 087 degrees QTc Int : 484 ms Sinus rhythm with frequent Premature ventricular complexes Nonspecific ST and T wave abnormality Prolonged QT Abnormal ECG Confirmed by DAYNA KILLIAN, COBY ([id number]), film editor supervisor IZAIAH HERNANDEZ ([id number]) on 03/08/2018 1:59:57 PM Referred By: Jay Garcia Confirmed By:COBY MCINTOSH MD
[2018-03-05] VITALS (11 sets, daily range): BP systolic 102–154; BP diastolic 50–66; PULSE 68–91; RESP 16–18; TEMP 36.4–37.1; O2SAT 95–97
[2018-03-05] MEDS: 0.9% NaCl Peripheral Flush Adult/Peds IV (02:35)
[2018-03-05 03:31] LABS: Anion Gap 8 (5-15); BUN 13 mg/dL (7-18); BUN/Creat Ratio 14.1 RATIO (10-20); Chloride 104 mmol/L (98-107); Creatinine, Serum 0.92 mg/dL (0.55-1.02); EST Glomerular Filtration Rate 63 mL/min (>60); Est Glom Filt Rate - Afr Amer 76 mL/min (>60); Estimated Creatinine Clearance 44.92 ml/min; Glucose 124 mg/dL (74-106); Magnesium 1.7 mg/dL (1.6-2.6); Potassium 3.7 mmol/L (3.5-5.1); Sodium Level 143 mmol/L (136-145); Thyroid Stim Hormone (TSH) 0.51 uIU/mL (0.358-3.74)
[2018-03-05] MEDS: Levothyroxine 75 MCG Tablet PO (05:20)
--- NOTE | 2018-03-05 06:00 | CT_ITS ---
STUDY: CT CHEST WITH CONTRAST REASON FOR EXAM: Female, 77 years old. Pulmonary nodule RADIATION DOSAGE (If Supplied By Facility): CTDIvol = ( 11.18 ) mGy, DLP = ( 341.67 ) mGycm TECHNIQUE: Transaxial imaging was performed following intravenous administration of 100ml ml of Isovue 300 contrast material. Individualized dose optimization techniques were used for this CT. COMPARISON: March 04, 2018 FINDINGS: There is mild COPD. There are fibrotic changes at the lung bases. There are NO active infiltrates. There is NO pulmonary nodule or mass. The abnormality on x-ray is most likely healing fracture of RIGHT sixth rib. There is NO pleural effusion or pneumothorax. Normal heart and pericardium. Normal mediastinum. Normal hilar regions. Normal enhanced pulmonary arteries. There is atherosclerotic calcification of the aortic arch with tortuosity and elongation of the aortic arch and descending thoracic aorta. There has been a LEFT mastectomy. Fracture of T8 is again noted. CT/Chest WITH Contrast IMPRESSION: There is mild COPD. There are fibrotic changes at the lung bases. There are NO active infiltrates. There is NO pulmonary nodule or mass. The abnormality on x-ray is most likely healing fracture of RIGHT sixth rib. There is NO pleural effusion or pneumothorax. Normal heart and pericardium. There is atherosclerotic calcification of the aortic arch with tortuosity and elongation of the aortic arch and descending thoracic aorta. There has been a LEFT mastectomy. Fracture of T8 is again noted. Electronically Signed: Angel Cardoza MD at 7:41 EDT , Service support ,
--- NOTE | 2018-03-05 06:00 | EKG12_ITS ---
Test Reason : AM EKG Blood Pressure : / mmHG Vent. Rate : 083 BPM Atrial Rate : 083 BPM P-R Int : 156 ms QRS Dur : 104 ms QT Int : 430 ms P-R-T Axes : 021 064 097 degrees QTc Int : 505 ms Normal sinus rhythm Nonspecific ST abnormality Prolonged QT Abnormal ECG When compared with ECG of 04-MAR-2018 23:25, MANUAL COMPARISON REQUIRED, DATA IS UNCONFIRMED Confirmed by DAYNA KILLIAN, COBY ([id number]), film or videotape editor IZAIAH HERNANDEZ ([id number] on 03/08/2018 1:58:19 PM Referred By: Jay Garcia Confirmed By:COBY MCINTOSH MD
[2018-03-05] MEDS: Enoxaparin 40 MG/0.4 ML Syringe SC (08:29)
[2018-03-05] MEDS: Glucerna Shake 120 ML LIQUID PO ×4 (08:29→21:54)
[2018-03-05] MEDS: Aspirin 325 MG Tablet PO (08:30)
[2018-03-05] MEDS: Pentoxifylline 400 MG Tablet PO ×2 (08:30→17:08)
--- NOTE | 2018-03-05 08:59 | PCM.CONS.C ---
Reason for Consult Date of Consultation: 03/05/18 Reason for Consultation: Chest discomfort. History of Present Illness: KATEY CROSS, is a 77 F who presents to the emergency room with complaints of chest discomfort. Patient has history of coronary artery disease status post bypass surgery in 2002 with DAVIS to LAD, SVG to first obtuse marginal and PDA, stenting to RCA 2001, ischemic cardiomyopathy, ventricular dysrhythmia status post ICD placement, mitral valve regurgitation, hypertension, COPD, and hyperlipidemia. She had been in her stable state of health until the above occurred. She describes this as a heaviness with no necessary radiation per se. She was seen in the emergency room was evaluated EKG did not demonstrate any significant acute changes was normal sinus rhythm with a rate of 83 bpm. Cardiac enzymes were minimally abnormal and the patient was admitted for further evaluation and management. She recently had her ICD generator changed out. Other workup has included the following: Echocardiogram from August 2017 showed an estimated ejection fraction 45%, moderately enlarged left atrium, mitral valve chordae are thickened and/or calcified, moderate eccentric mitral valve insufficiency, mild to moderate tricuspid valve insufficiency, mild focal aortic valve calcification, trivial pulmonic valve insufficiency, RVSP of 42 mmHg, diastolic dysfunction, ICD or pacer leads identified in both right atrium and right ventricle, and a small mobile echodensity in the sub-mitral valvular area compatible with a calcified and redundant chordae tendon. When compared to TIMBO in May 2015 there are similar type findings. Cardiovascular stress test in May 2015 from showed previous myocardial injury/infarction involving portions of the basal inferior septal/basal inferior segments extending through the mid to distal inferior and inferoapical segments with no myocardial perfusion changes consider diagnostic for associated stress-induced myocardial ischemia. Reported ejection fraction was 42%. Recent stress test in October 2017 demonstrated evidence of ischemic cardiomyopathy with no stress-induced areas of myocardial ischemia Heart catheterization from April 2011 showed an ejection fraction of 45% and angiographically significant appearing multivessel coronary artery disease, and all 3 grafts to be patent. Past Medical History Allergies/Adverse Reactions: Allergies No Known Allergies Allergy (Verified 03/04/18 23:38) Home Medications: Ambulatory Orders Medication Instructions Recorded Aspirin 325 mg PO DAILY@0800 03/24/16 Duloxetine Hcl [Cymbalta] 60 mg PO DAILY 03/24/16 Hydrochlorothiazide [Hctz] 25 mg PO DAILY 03/24/16 Isosorbide Mononitrate [Imdur] 120 mg PO DAILY 03/24/16 Levothyroxine [Synthroid] 75 mcg PO DAILY 03/24/16 Metoprolol Tartrate [Lopressor 50 mg PO BID 03/24/16 (beta chandra)] Omeprazole [Prilosec] 20 mg PO DAILY 03/24/16 Vit A/Vit C/Vit E/Zinc/Copper 1 ea PO QHS 03/24/16 [Preservision Areds Softgel] Cholecalciferol (Vitamin D3) 50,000 unit PO QWEEK 09/18/16 [Vitamin D] Clopidogrel Bisulfate [Plavix] 75 mg PO DAILY 09/18/16 fluticasone 50 mcg/actuation nasal 2 spray INTRANASAL QDAY PRN 08/29/17 spray,suspension promethazine 12.5 mg tablet 12.5 mg PO Q8H PRN tab 08/29/17 nitroglycerin 0.4 mg sublingual 0.4 mg SUBLINGUAL Q5M PRN 10/30/17 tablet pentoxifylline ER 400 mg 400 mg PO BID 10/30/17 tablet,extended release bumetanide 0.5 mg tablet 0.5 mg PO QDAY 12/03/17 exemestane 25 mg tablet 25 mg PO QDAY 12/03/17 potassium chloride ER 10 mEq 40 meq PO BID tab 12/03/17 tablet,extended release pravastatin 40 mg tablet 40 mg PO QHS 12/03/17 pregabalin 100 mg capsule 100 mg PO BID 12/03/17 valsartan 160 mg tablet 160 mg PO QDAY #30 tab 12/05/17 fenofibrate 160 mg tablet 160 mg PO QDAY #30 tab 12/14/17 Past Medical History (Chronic Problems): Chronic Problems (Last Reviewed 03/05/18 @ 01:22 by Jean Regalado MD) Chronic systolic congestive heart failure (Chronic) Nonrheumatic mitral valve regurgitation (Chronic) Nonrheumatic tricuspid (valve) insufficiency (Chronic) 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) ICD Implant November 2002; 01/20/10 ICD generator replacement; Presence of stent in coronary artery (Chronic) PTCA/stent to mid RCA 11/30/01; Atherosclerotic heart disease of [place] coronary artery without angina pectoris (Chronic) PTCA/stent to mid RCA in November 2001; CABG in November 2002 with DAVIS to LAD, SVG to obtuse marginal, and SVG to PDA; Ischemic cardiomyopathy (Chronic) Ventricular tachyarrhythmia (Chronic) Palpitations (Chronic) Aortocoronary bypass status (Chronic) CABG 12/08/02, DAVIS to LAD, SVG to OBtuse marginal & to PDA; Old myocardial infarction (Chronic) Angina pectoris (Chronic) HTN (hypertension) (Chronic) Diabetes mellitus (Chronic) Paroxysmal a-fib (Chronic) Ventricular tachycardia (paroxysmal) (Chronic) HLD (hyperlipidemia) (Chronic) Hypothyroidism (Chronic) Paroxysmal SVT (supraventricular tachycardia) (Chronic) Surgical History: coronary bypass surgery, mastectomy, pacemaker implantation Psychiatric History: No pertinent psych hx GRAPHOTYPE OPERATOR History: No pertinent GRAPHOTYPE OPERATOR history - *Family History Maternal Family History: Family History (Last Reviewed 03/05/18 @ 01:23 by Jean Regalado MD) Son Asthma Father Cancer Mother Cancer Brother Cancer History Items: No pertinent history Paternal Family History: Family History (Last Reviewed 03/05/18 @ 01:23 by Jean Regalado MD) Son Asthma Father Cancer Mother Cancer Brother Cancer History Items: No pertinent history Smoking Status: Former smoker Tobacco Use: Non-smoker Alcohol: None Drugs: None Review of Systems - Review of Systems General: Denies: Fever, Night Sweats, Fatigue Cardiovascular: Reports: Chest Discomfort at Rest. Denies: Chest Discomfort, Shortness of Breath, Orthopnea, PND, Peripheral Edema, Palpitations, Lightheadedness, Dizziness, Near Syncope, Syncope Respiratory: Denies: Cough, Sputum Production, Hemoptysis Gastrointestinal: Denies: Hematemesis, Hematochezia, Melena Genitourinary: Denies: Dysuria, Hematuria Skin: Denies: Rash Subjectve: Pleasant lady in no apparent distress Objective: Vital Signs Temp Pulse Resp BP Pulse Ox 98.8 F 83 18 154/63 H 96 03/05/18 05:20 03/05/18 06:57 03/05/18 05:20 03/05/18 05:20 03/05/18 05:20 Oxygen Delivery Method Room Air Weight: 138 lb 10.732 oz Body Mass Index (BMI) 23.8 Intake and Output for Last 24 Hours 03/03/18 03/04/18 03/05/18 23:59 23:59 23:59 Intake Total 709 / 709 Balance 709 / 709 General: Awake, Alert, Oriented x 3 HEENT: PERRL, EOMI, Sclera Non Icteric Neck: Supple, Good ROM, No Lymph Node Enlargement Lungs: Clear to auscultation Cardiovascular: Regular Rhythm, Normal S1, Normal S2, No Murmurs, No Rubs, No Gallops Vascular: No Carotid Bruits, Normal Femoral Pulses, Normal Radial Pulses, Normal Dorsalis Pedal Pulse, Normal Posterior Tibial Pulses Abdomen: Bowel Sounds Present, Soft, Non Tender, No HSM, No Organomegaly Extremities: No Cyanosis, No Clubbing, No edema Neurological: No Focal Motor or Sensory Deficit 03/05/18 00:10: Troponin I 0.049 H 03/05/18 02:40: Troponin I 0.046 H 03/05/18 02:40: Sodium 143, Potassium 3.7, Chloride 104, Carbon Dioxide 31.0, Anion Gap 8, BUN 13, Creatinine 0.92, Est GFR (MDRD) Af Amer 76, Est GFR (MDRD) Non-Af 63, BUN/Creatinine Ratio 14.1, Glucose 124 H, Calcium 9.0, Magnesium 1.7 Rhythm: EKG: Normal sinus rhythm with no acute changes Assessment/Plan 1. Chest pain and abnormal cardiac enzymes. She presents with chest pain with some atypical features and mildly abnormal cardiac enzymes. My recommendation at this time would be to optimize her medical therapy as she recently had a stress test but did not demonstrate any significant ischemia. Depending on how she does further recommendations will then be made. 2. Ischemic cardiomyopathy I25.5 Patient's most recent echocardiogram in August 2017 showed an estimated ejection fraction 45%. Patient denies any shortness of breath or lower extremity pedal edema. Patient will continue current medications which include beta-chandra, ARB, and diuretic. 3. CAD (coronary artery disease) I25.10 PTCA/stent to mid RCA in November 2001; CABG in November 2002 with DAVIS to LAD, SVG to obtuse marginal, and SVG to PDA; As noted above we will continue medical therapy for now. 4. Hypertension I10 Patient's blood pressure is well-controlled today in the office. We will continue to monitor this. We will not make any medication regimen changes. Patient was asked to continue to monitor blood pressure and heart rate as her metoprolol is adjusted. 5. Paroxysmal ventricular tachycardia I47.2 His most recent pacemaker check from October 2017 showed no VT/VF episodes. She will continue current medications. We will continue to monitor this. 6. Valvular heart disease I38 Patient's echocardiogram from August 2017 showed moderately enlarged left atrium, mitral valve chordae are thickened and/or calcified, moderate eccentric mitral valve insufficiency, mild to moderate tricuspid valve insufficiency, mild focal aortic valve calcification, RVSP of 42 mmHg, diastolic dysfunction and a small mobile echodensity in the sub-mitral valvular area compatible with a calcified and redundant chordae tendon. When compared to TIMBO in May 2015 there are similar type findings. Patient will continue current medications. We will continue to monitor this through history, exam, and repeat echocardiogram as deemed necessary. 7. senior living current use of amiodarone Z79.899 Patient has had recent testing to evaluate amiodarone therapy. Her PFTs were noted to show a significant decline over the last 2 years. She was asked to follow-up with primary care physician or pulmonology for further evaluation of this. We will continue to monitor this. Thank you for allowing me to participate in the care of your patient. Please don't hesitate to call if any issues arise
[2018-03-05] MEDS: Clopidogrel Bisulfate 75 MG Tablet PO (09:46)
[2018-03-05] MEDS: Pantoprazole Sodium 20 MG Tablet PO (09:46)
[2018-03-05] MEDS: Pregabalin 50 MG Capsule 100 MG PO ×2 (09:46→21:54)
[2018-03-05] MEDS: Fenofibrate 145 MG Tablet PO (09:46)
[2018-03-05] MEDS: Metoprolol Tartrate 50 MG Tablet PO ×2 (09:46→21:54)
[2018-03-05] MEDS: amLODIPine 5 MG Tablet PO (09:46)
[2018-03-05] MEDS: DULoxetine Hcl 60 MG Capsule PO (09:47)
--- NOTE | 2018-03-05 13:35 | CASEMGMT ---
Social Work: Met with patient in room. Introduced self and the role of the medical social consultant. Patient currently lives in [facility] under the assisted living waiver. Patient's outpatient case manager at [facility] is Cari Johnson . Patient states she only uses a walker when she goes out but not use one to ambulate in her apartment. Patient states she is independent with ADL'S. Patient verbalizes that she is not happy at [facility] and states it is not enough assisted living for me. Patient feels as thought she needs more assistance in the home but is unable to specify what assistance she needs and she is independent with ADL's. Patient states that the homemaker aid does not come as often as needed to assist with cleaning. Patient states that her plan is to move to the [facility] [place] in the future and Cari at [facility] is assisting with this per patient. Patient has a son who lives close by but is unable to assist due to health problems. Patient giving this SW permission to call Cari Johnson at [facility] to discuss current waiver services and the possibility of increasing assistance in the home. SW to continue to follow to assist as needed with D/C planning. PLAN: Patient to return to [facility] when medically ready for D/C. PATRICK Montgomery
[2018-03-05] MEDS: ALPRAZolam 0.25 MG Tablet PO (21:54)
[2018-03-05] MEDS: MELATONIN 10 MG TABLET PO (21:55)
[2018-03-05] MEDS: Donepezil HCl 5 MG Tablet PO (21:55)
[2018-03-05] MEDS: Pravastatin 40 MG Tablet PO (21:55)
[2018-03-05] MEDS: Zolpidem Tartrate 5 MG Tablet PO (23:21)
[2018-03-06] VITALS (7 sets, daily range): BP systolic 106–116; BP diastolic 30–52; PULSE 68–82; RESP 18; TEMP 36.6–36.7; O2SAT 96–100
[2018-03-06] MEDS: Levothyroxine 75 MCG Tablet PO (06:08)
[2018-03-06] MEDS: Enoxaparin 40 MG/0.4 ML Syringe SC (06:08)
--- NOTE | 2018-03-06 07:24 | PN_ITS ---
Patient Problems: Active and Suspected Problems (Last Reviewed 03/05/18 @ 01:22 by Jean Regalado MD) Hypokalemia (Acute) Chest pain (Acute) Subjective: Late entry note for 03/05/2018 Patient is a 77-year-old lady admitted with chest pain placed in a monitored bed where patient is currently undergoing evaluation. Vitals/I&O's: Vital Signs Temp Pulse Resp BP Pulse Ox 97.9 F 68 18 116/30 L 100 03/06/18 04:30 03/06/18 04:36 03/06/18 04:30 03/06/18 04:57 03/06/18 04:30 Oxygen Flow Rate (L/min) 2 Oxygen Delivery Method Nasal Cannula Weight: 62.9 kg Body Mass Index (BMI) 23.8 Intake and Output for Last 24 Hours 03/04/18 03/05/18 03/06/18 23:59 23:59 23:59 Intake Total 2088 340 / 340 Output Total 900 / 900 Balance 2088 -560 / -560 General: Alert, Oriented x3, Cooperative HEENT: Atraumatic Neck: Supple, No JVD, Thyroid Normal Size and Texture Lungs: Clear to auscultation, No wheeze Cardiovascular: Regular rate, Normal S1, Normal S2 Abdomen: Bowel Sounds Present, Soft, Non Tender Extremities: No clubbing, No cyanosis, No edema Skin: No rashes Musculoskeletal: - - Full range of motion in all major muscle groups. Neurological: Neuro grossly intact Psych/Mental Status: Normal Affect Current Medications Alprazolam (Xanax) 0.25 mg PO QHS [facility] Last Admin: 03/05/18 21:54 Dose: 0.25 mg Amlodipine Besylate (Norvasc) 5 mg PO DAILY [facility] Last Admin: 03/05/18 09:46 Dose: 5 mg Aspirin (Aspirin, Baby) 81 mg PO DAILY@0800 [facility] Clopidogrel Bisulfate (Plavix) 75 mg PO DAILY [facility] Last Admin: 03/05/18 09:46 Dose: 75 mg Donepezil HCl (Aricept) 5 mg PO QHS [facility] Last Admin: 03/05/18 21:55 Dose: 5 mg Duloxetine HCl (Cymbalta) 60 mg PO DAILY [facility] Last Admin: 03/05/18 09:47 Dose: 60 mg Enoxaparin Sodium (Lovenox) 40 mg SC DAILY@0600 [facility] Last Admin: 03/06/18 06:08 Dose: 40 mg Ergocalciferol (Vitamin D) 50,000 unit PO QWEEK [facility] Exemestane (Aromasin) 25 mg PO DAILY [facility] Last Admin: 03/05/18 17:09 Dose: Not Given Fenofibrate (Tricor) 145 mg PO DAILY [facility] Last Admin: 03/05/18 09:46 Dose: 145 mg Fluticasone Propionate (Flonase Nasal [place]) 2 spray NASAL DAILY PRN PRN PRN Reason: ALLERGIES Hydralazine HCl (Apresoline Iv) 5 mg IV Q4H PRN PRN PRN Reason: SBP > 160 Isosorbide Mononitrate (Imdur) 120 mg PO DAILY [facility] Last Admin: 03/05/18 09:46 Dose: 120 mg Levothyroxine Sodium (Synthroid) 75 mcg PO DAILY@0600 [facility] Last Admin: 03/06/18 06:08 Dose: 75 mcg Melatonin (Melatonin) 10 mg PO QHS [facility] Last Admin: 03/05/18 21:55 Dose: 10 mg Metoprolol Tartrate (Lopressor (Beta Rico)) 50 mg PO BID [facility] Last Admin: 03/05/18 21:54 Dose: 50 mg Morphine Sulfate () 1 - 2 mg IV Q4H PRN PRN PRN Reason: PAIN Nitroglycerin (Nitrostat) 0.4 mg SUBLINGUAL Q5M PRN PRN Reason: CHEST PAIN Nutritional Formula (Lactose Free) (Glucerna Shake) 120 ml PO 4X/DAY [facility] Last Admin: 03/05/18 21:54 Dose: 120 ml Pantoprazole Sodium (Protonix) 20 mg PO DAILY [facility] Last Admin: 03/05/18 09:46 Dose: 20 mg [facility] Admin: 03/05/18 17:08 Dose: 400 mg Potassium Chloride (K-Dur) [facility] Last Admin: 03/05/18 17:08 Dose: 40 meq Pravastatin Sodium (Pravachol) 40 mg PO QHS [facility] Last Admin: 03/05/18 21:55 Dose: 40 mg Pregabalin (Lyrica) 100 mg PO BID [facility] Last Admin: 03/05/18 21:54 Dose: 100 mg Promethazine HCl (Phenergan Tablet) 12.5 mg PO Q8H PRN PRN PRN Reason: nausea and vomiting Sodium Chloride () 5 - 30 ml IV UD PRN PRN Reason: SALINE FLUSH Last Admin: 03/05/18 02:35 Dose: 10 ml Valsartan (Diovan) 160 mg PO DAILY [facility] Last Admin: 03/05/18 09:46 Dose: 160 mg Zolpidem Tartrate (Ambien (Generic)) 5 mg PO QHS PRN PRN PRN Reason: INSOMNIA Last Admin: 03/05/18 23:21 Dose: 5 mg Medical Necessity - Tobacco Use Smoking Status: Former smoker Tobacco Use: Non-smoker Assessment/Plan All Active Problems (Last Reviewed 03/05/18 @ 01:22 by Jean Regalado MD) Hypokalemia (Acute) Chest pain (Acute) Monomorphic ventricular tachycardia (Acute) Pre-syncope (Acute) Syncope (Acute) Shortness of breath (Acute) Patient is 77-year-old lady admitted with chest pain 1. Chest pain: Placed in a monitored bed SD ruled out with serial cardiac enzymes patient was seen in consultation by cardiology no intervention was recommended. Plan is for patient to undergo medical optimization 2. CAD with previous CABG 3. Hypokalemia secondary to patient diuretics corrected per protocol 3. Hypothyroidism-patient is on levothyroxine home dose continued 4. Hypertension-blood pressure controlled, home medications continued with dose adjustment as needed 5. History of breast CA with likely metastatic disease plan is for patient to follow-up with oncology as outpatient 6. Peripheral vascular disease 7. DVT prophylaxis SC Lovenox Clinical Impression(s) from Imaging Studies Chest X-Ray 03/04/18 20:43 IMPRESSION: Defibrillator status post CABG sternotomy. No visualized focal infiltrate. Probable focal plaque in the right lower lobe versus indeterminate infiltrate or nodule not definitively seen on prior study. Electronically Signed: Tisha Hawkins MD at 21:14 EDT Tel , Service support , Chest CT 03/05/18 06:00 IMPRESSION: There is mild COPD. There are fibrotic changes at the lung bases. There are NO active infiltrates. There is NO pulmonary nodule or mass. The abnormality on x-ray is most likely healing fracture of RIGHT sixth rib. There is NO pleural effusion or pneumothorax. Normal heart and pericardium. There is atherosclerotic calcification of the aortic arch with tortuosity and elongation of the aortic arch and descending thoracic aorta. There has been a LEFT mastectomy. Fracture of T8 is again noted. Electronically Signed: Angel Cardoza MD at 7:41 EDT , Service support , Active Medications Alprazolam (Xanax) 0.25 mg PO QHS [facility] Last Admin: 03/05/18 21:54 Dose: 0.25 mg Amlodipine Besylate (Norvasc) 5 mg PO DAILY [facility] Last Admin: 03/05/18 09:46 Dose: 5 mg Aspirin (Aspirin, Baby) 81 mg PO DAILY@0800 [facility] Clopidogrel Bisulfate (Plavix) 75 mg PO DAILY [facility] Last Admin: 03/05/18 09:46 Dose: 75 mg Donepezil HCl (Aricept) 5 mg PO QHS [facility] Last Admin: 03/05/18 21:55 Dose: 5 mg Duloxetine HCl (Cymbalta) 60 mg PO DAILY [facility] Last Admin: 03/05/18 09:47 Dose: 60 mg Enoxaparin Sodium (Lovenox) 40 mg SC DAILY@0600 [facility] Last Admin: 03/06/18 06:08 Dose: 40 mg Ergocalciferol (Vitamin D) 50,000 unit PO QWEEK [facility] Exemestane (Aromasin) 25 mg PO DAILY [facility] Last Admin: 03/05/18 17:09 Dose: Not Given Fenofibrate (Tricor) 145 mg PO DAILY [facility] Last Admin: 03/05/18 09:46 Dose: 145 mg Fluticasone Propionate (Flonase Nasal [place]) 2 spray NASAL DAILY PRN PRN PRN Reason: ALLERGIES Hydralazine HCl (Apresoline Iv) 5 mg IV Q4H PRN PRN PRN Reason: SBP > 160 Isosorbide Mononitrate (Imdur) 120 mg PO DAILY [facility] Last Admin: 03/05/18 09:46 Dose: 120 mg Levothyroxine Sodium (Synthroid) 75 mcg PO DAILY@0600 [facility] Last Admin: 03/06/18 06:08 Dose: 75 mcg Melatonin (Melatonin) 10 mg PO QHS [facility] Last Admin: 03/05/18 21:55 Dose: 10 mg Metoprolol Tartrate (Lopressor (Beta Rico)) 50 mg PO BID [facility] Last Admin: 03/05/18 21:54 Dose: 50 mg Morphine Sulfate () 1 - 2 mg IV Q4H PRN PRN PRN Reason: PAIN Nitroglycerin (Nitrostat) 0.4 mg SUBLINGUAL Q5M PRN PRN Reason: CHEST PAIN Nutritional Formula (Lactose Free) (Glucerna Shake) 120 ml PO 4X/DAY [facility] Last Admin: 03/05/18 21:54 Dose: 120 ml Pantoprazole Sodium (Protonix) 20 mg PO DAILY [facility] Last Admin: 03/05/18 09:46 Dose: 20 mg [facility]al) [facility] Last Admin: 03/05/18 17:08 Dose: 400 mg Potassium Chloride (K-Dur) [facility] Last Admin: 03/05/18 17:08 Dose: 40 meq Pravastatin Sodium (Pravachol) 40 mg PO QHS [facility] Last Admin: 03/05/18 21:55 Dose: 40 mg Pregabalin (Lyrica) 100 mg PO BID [facility] Last Admin: 03/05/18 21:54 Dose: 100 mg Promethazine HCl (Phenergan Tablet) 12.5 mg PO Q8H PRN PRN PRN Reason: nausea and vomiting Sodium Chloride () 5 - 30 ml IV UD PRN PRN Reason: SALINE FLUSH Last Admin: 03/05/18 02:35 Dose: 10 ml Valsartan (Diovan) 160 mg PO DAILY [facility] Last Admin: 03/05/18 09:46 Dose: 160 mg Zolpidem Tartrate (Ambien (Generic)) 5 mg PO QHS PRN PRN PRN Reason: INSOMNIA Last Admin: 03/05/18 23:21 Dose: 5 mg Code Visit OBSV E&M: [id number] Subsequent observation care L3
--- NOTE | 2018-03-06 07:58 | PCM.PN.CARD ---
Subjectve: Patient seen and evaluated. She appears to be doing well with no cardiac complaints. Objective: Vital Signs Temp Pulse Resp BP Pulse Ox 97.9 F 68 18 116/30 L 100 03/06/18 04:30 03/06/18 04:36 03/06/18 04:30 03/06/18 04:57 03/06/18 04:30 Oxygen Flow Rate (L/min) 2 Oxygen Delivery Method Nasal Cannula Weight: 138 lb 10.732 oz Body Mass Index (BMI) 23.8 Intake and Output for Last 24 Hours 03/04/18 03/05/18 03/06/18 23:59 23:59 23:59 Intake Total 2088 340 / 340 Output Total 900 / 900 Balance 2088 -560 / -560 General: Awake, Alert, Oriented x 3 HEENT: PERRL, EOMI, Sclera Non Icteric Neck: Supple, Good ROM, No Lymph Node Enlargement Lungs: Clear to auscultation Cardiovascular: Regular Rhythm, Normal S1, Normal S2, No Murmurs, No Rubs, No Gallops Vascular: No Carotid Bruits, Normal Femoral Pulses, Normal Radial Pulses, Normal Dorsalis Pedal Pulse, Normal Posterior Tibial Pulses Abdomen: Bowel Sounds Present, Soft, Non Tender, No HSM, No Organomegaly Extremities: No Cyanosis, No Clubbing, No edema Neurological: No Focal Motor or Sensory Deficit Rhythm: EKG: ECHO: Stress Test: Cardiac Cath: PCI: CT Surgery: Holter monitor: EPS: PPM: CXR: Chest CT Scan: Medical Necessity - Tobacco Use Smoking Status: Former smoker Tobacco Use: Non-smoker Assessment/Plan 1. Chest pain and abnormal cardiac enzymes. She presents with chest pain with some atypical features and mildly abnormal cardiac enzymes. My recommendation at this time would be to optimize her medical therapy as she recently had a stress test but did not demonstrate any significant ischemia. She appears to have done well so she can be discharged home on her current medications and follow up as an outpatient. 2. Ischemic cardiomyopathy I25.5 Patient's most recent echocardiogram in August 2017 showed an estimated ejection fraction 45%. Patient denies any shortness of breath or lower extremity pedal edema. Patient will continue current medications which include beta-chandra, ARB, and diuretic. 3. CAD (coronary artery disease) I25.10 PTCA/stent to mid RCA in November 2001; CABG in November 2002 with DAVIS to LAD, SVG to obtuse marginal, and SVG to PDA; As noted above we will continue medical therapy for now. 4. Hypertension I10 Patient's blood pressure is well-controlled today in the office. We will continue to monitor this. We will not make any medication regimen changes. Patient was asked to continue to monitor blood pressure and heart rate as her metoprolol is adjusted. 5. Paroxysmal ventricular tachycardia I47.2 His most recent pacemaker check from October 2017 showed no VT/VF episodes. She will continue current medications. We will continue to monitor this. 6. Valvular heart disease I38 Patient's echocardiogram from August 2017 showed moderately enlarged left atrium, mitral valve chordae are thickened and/or calcified, moderate eccentric mitral valve insufficiency, mild to moderate tricuspid valve insufficiency, mild focal aortic valve calcification, RVSP of 42 mmHg, diastolic dysfunction and a small mobile echodensity in the sub-mitral valvular area compatible with a calcified and redundant chordae tendon. When compared to TIMBO in May 2015 there are similar type findings. Patient will continue current medications. We will continue to monitor this through history, exam, and repeat echocardiogram as deemed necessary. 7. senior care current use of amiodarone Z79.899 Patient has had recent testing to evaluate amiodarone therapy. Her PFTs were noted to show a significant decline over the last 2 years. She was asked to follow-up with primary care physician or pulmonology for further evaluation of this. We will continue to monitor this. Thank you for allowing me to participate in the care of your patient. Please don't hesitate to call if any issues arise. She wants to be discharged home on Ambien. I will leave this up to the primary physician/specialist
[2018-03-06] MEDS: Pentoxifylline 400 MG Tablet PO (08:39)
[2018-03-06] MEDS: Aspirin 81 MG TAB.CHEW PO (08:39)
--- NOTE | 2018-03-06 09:24 | PCM.DC ---
- Discharge Diagnoses Current Active Problems: Current Active and Chronic Problems (Last Reviewed 03/05/18 @ 01:22 by Jean Regalado MD) Hypokalemia (Acute) Chest pain (Acute) You will use the following diet at home:: No restrictions Your food should be the consistency of: Regular Discharge Activity: Return to Normal Activity Instructions: ED Chest Pain NonCardiac Allergies/Adverse Reactions: Allergies No Known Allergies Allergy (Verified 03/04/18 23:38) Medications to take at Discharge Aspirin 325 mg PO DAILY@0800 03/24/16 Duloxetine Hcl [Cymbalta] 60 mg PO DAILY 03/24/16 Isosorbide Mononitrate [Imdur] 120 mg PO DAILY 03/24/16 Levothyroxine [Synthroid] 75 mcg PO DAILY 03/24/16 Metoprolol Tartrate [Lopressor (beta chandra)] 50 mg PO BID 03/24/16 Omeprazole [Prilosec] 20 mg PO DAILY 03/24/16 Vit A/Vit C/Vit E/Zinc/Copper [Preservision Areds Softgel] 1 ea PO QHS 03/24/16 Cholecalciferol (Vitamin D3) [Vitamin D3] 50,000 unit PO QWEEK 09/18/16 Clopidogrel Bisulfate [Plavix] 75 mg PO DAILY 09/18/16 fluticasone 50 mcg/actuation nasal spray,suspension 2 spray INTRANASAL QDAY PRN 08/29/17 promethazine 12.5 mg tablet 12.5 mg PO Q8H PRN tab 08/29/17 nitroglycerin 0.4 mg sublingual tablet 0.4 mg SUBLINGUAL Q5M PRN 10/30/17 pentoxifylline ER 400 mg tablet,extended release 400 mg PO BID 10/30/17 bumetanide 0.5 mg tablet 0.5 mg PO QDAY 12/03/17 exemestane 25 mg tablet 25 mg PO QDAY 12/03/17 potassium chloride ER 10 mEq tablet,extended release 40 meq PO BID tab 12/03/17 pravastatin 40 mg tablet 40 mg PO QHS 12/03/17 pregabalin 100 mg capsule 100 mg PO BID 12/03/17 valsartan 160 mg tablet 160 mg PO QDAY #30 tab 12/05/17 fenofibrate 160 mg tablet 160 mg PO QDAY #30 tab 12/14/17 Amlodipine [Norvasc] 5 mg PO DAILY #30 tab 03/06/18 Melatonin 10 mg PO QHS #30 tab 03/06/18 Zolpidem Tartrate [Ambien (Generic)] 5 mg PO QHS PRN PRN 7 Days #7 tablet 03/06/18 The following prescriptions were given: Amlodipine [Norvasc] 5 mg PO DAILY #30 tab Melatonin 10 mg PO QHS #30 tab Zolpidem Tartrate [Ambien (Generic)] 5 mg PO QHS PRN PRN 7 Days #7 tablet PRN Reason: Sleep Primary Care Physician: Care Physician,No Primary [Primary Care Provider] - Test Results: Test results from this visit will be discussed in further detail at your follow-up appointment, if applicable. Proposed Discharge Date: 03/06/18
--- NOTE | 2018-03-06 09:26 | PCM.DC.SUM ---
Discharge Date and Diagnosis - Problem List Patient Problems: Active and Suspected Problems (Last Reviewed 03/05/18 @ 01:22 by Jean Regalado MD) Hypokalemia (Acute) Chest pain (Acute) Date of Admission: 03/04/18 Date of Discharge: 03/06/18 - Primary Discharge Diagnosis Active and Suspected Problems (Last Reviewed 03/05/18 @ 01:22 by Jean Regalado MD) Hypokalemia (Acute) Chest pain (Acute) - Secondary Discharge Diagnosis Chronic Problems (Last Reviewed 03/05/18 @ 01:22 by Jean Regalado MD) Chronic systolic congestive heart failure (Chronic) Nonrheumatic mitral valve regurgitation (Chronic) Nonrheumatic tricuspid (valve) insufficiency (Chronic) 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) ICD Implant November 2002; 01/20/10 ICD generator replacement; Presence of stent in coronary artery (Chronic) PTCA/stent to mid RCA 11/30/01; 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) PTCA/stent to mid RCA in November 2001; CABG in November 2002 with DAVIS to LAD, SVG to obtuse marginal, and SVG to PDA; Ischemic cardiomyopathy (Chronic) Ventricular tachyarrhythmia (Chronic) Palpitations (Chronic) Aortocoronary bypass status (Chronic) CABG 12/08/02, DAVIS to LAD, SVG to OBtuse marginal & to PDA; Old myocardial infarction (Chronic) Angina pectoris (Chronic) HTN (hypertension) (Chronic) Diabetes mellitus (Chronic) Paroxysmal a-fib (Chronic) Ventricular tachycardia (paroxysmal) (Chronic) HLD (hyperlipidemia) (Chronic) Hypothyroidism (Chronic) Paroxysmal SVT (supraventricular tachycardia) (Chronic) Hospital Course and Treatment Imaging Results: Clinical Impression(s) from Imaging Studies Chest X-Ray 03/04/18 20:43 IMPRESSION: Defibrillator status post CABG sternotomy. No visualized focal infiltrate. Probable focal plaque in the right lower lobe versus indeterminate infiltrate or nodule not definitively seen on prior study. Electronically Signed: Tisha Hawkins MD at 21:14 EDT Tel , Service support , Chest CT 03/05/18 06:00 IMPRESSION: There is mild COPD. There are fibrotic changes at the lung bases. There are NO active infiltrates. There is NO pulmonary nodule or mass. The abnormality on x-ray is most likely healing fracture of RIGHT sixth rib. There is NO pleural effusion or pneumothorax. Normal heart and pericardium. There is atherosclerotic calcification of the aortic arch with tortuosity and elongation of the aortic arch and descending thoracic aorta. There has been a LEFT mastectomy. Fracture of T8 is again noted. Electronically Signed: Angel Cardoza MD at 7:41 EDT , Service support , Operations: None Summary of Care Provided: Patient is 77-year-old lady admitted with chest pain 1. Chest pain: Placed in a monitored bed VT ruled out with serial cardiac enzymes patient was seen in consultation by cardiology no intervention was recommended. Cardiology recommended optimization of medical therapy. 2. CAD with previous CABG 3. Hypokalemia secondary to patient diuretics corrected per protocol 3. Hypothyroidism-patient is on levothyroxine home dose continued 4. Hypertension-blood pressure controlled, home medications continued with dose adjustment as needed 5. History of breast CA with likely metastatic disease plan is for patient to follow-up with oncology as outpatient 6. Peripheral vascular disease 7. DVT prophylaxis SC Lovenox 8. Insomnia patient requested a prescription for Ambien did discuss with the patient on the fact that Ambien was not supposed to be used on a long-term basis and only as needed prescription was written for Ambien 5 mg p.o. nightly as needed for sleep total of 7 tablets Discharge Diet: No Restrictions Discharge Activity: Return to Normal Activity Home Medications: Medications to take at Discharge Aspirin 325 mg PO DAILY@0800 03/24/16 Duloxetine Hcl [Cymbalta] 60 mg PO DAILY 03/24/16 Isosorbide Mononitrate [Imdur] 120 mg PO DAILY 03/24/16 Levothyroxine [Synthroid] 75 mcg PO DAILY 03/24/16 Metoprolol Tartrate [Lopressor (beta chandra)] 50 mg PO BID 03/24/16 Omeprazole [Prilosec] 20 mg PO DAILY 03/24/16 Vit A/Vit C/Vit E/Zinc/Copper [Preservision Areds Softgel] 1 ea PO QHS 03/24/16 Cholecalciferol (Vitamin D3) [Vitamin D3] 50,000 unit PO QWEEK 09/18/16 Clopidogrel Bisulfate [Plavix] 75 mg PO DAILY 09/18/16 fluticasone 50 mcg/actuation nasal spray,suspension 2 spray INTRANASAL QDAY PRN 08/29/17 promethazine 12.5 mg tablet 12.5 mg PO Q8H PRN tab 08/29/17 nitroglycerin 0.4 mg sublingual tablet 0.4 mg SUBLINGUAL Q5M PRN 10/30/17 pentoxifylline ER 400 mg tablet,extended release 400 mg PO BID 10/30/17 bumetanide 0.5 mg tablet 0.5 mg PO QDAY 12/03/17 exemestane 25 mg tablet 25 mg PO QDAY 12/03/17 potassium chloride ER 10 mEq tablet,extended release 40 meq PO BID tab 12/03/17 pravastatin 40 mg tablet 40 mg PO QHS 12/03/17 pregabalin 100 mg capsule 100 mg PO BID 12/03/17 valsartan 160 mg tablet 160 mg PO QDAY #30 tab 12/05/17 fenofibrate 160 mg tablet 160 mg PO QDAY #30 tab 12/14/17 Amlodipine [Norvasc] 5 mg PO DAILY #30 tab 03/06/18 Melatonin 10 mg PO QHS #30 tab 03/06/18 Zolpidem Tartrate [Ambien (Generic)] 5 mg PO QHS PRN PRN 7 Days #7 tablet 03/06/18 Following Prescrptions Were Given to Patient: Amlodipine [Norvasc] 5 mg PO DAILY #30 tab Melatonin 10 mg PO QHS #30 tab Zolpidem Tartrate [Ambien (Generic)] 5 mg PO QHS PRN PRN 7 Days #7 tablet PRN Reason: Sleep Primary Care Physician: Care Physician,No Primary [Primary Care Provider] - Patient Instructions: ED Chest Pain NonCardiac Disposition: Asstd Living/Non-Skill NH Minutes spent on discharge:: 35 Patient Condition:: Stable Medical Necessity - Tobacco Use Smoking Status: Former smoker Tobacco Use: Non-smoker Meaningful Use Info Meaningful Use Diagnoses (Choose all that apply): None applicable Code Visit OBSV E&M: 99781 Observation care discharge
[2018-03-06] MEDS: amLODIPine 5 MG Tablet PO (09:55)
[2018-03-06] MEDS: DULoxetine Hcl 60 MG Capsule PO (09:55)
[2018-03-06] MEDS: Glucerna Shake 120 ML LIQUID PO (09:55)
[2018-03-06] MEDS: Pregabalin 50 MG Capsule 100 MG PO (09:55)
[2018-03-06] MEDS: Fenofibrate 145 MG Tablet PO (09:55)
[2018-03-06] MEDS: Metoprolol Tartrate 50 MG Tablet PO (09:55)
[2018-03-06] MEDS: Pantoprazole Sodium 20 MG Tablet PO (09:55)
[2018-03-06] MEDS: Clopidogrel Bisulfate 75 MG Tablet PO (09:55)
--- NOTE | 2018-03-06 10:05 | CASEMGMT ---
Patient is being discharged back to [facility]. TOYIN faxed orders to [facility]. TOYIN gave patient a list of PCP's as she does not like the one she has at assisted living due to he won't prescribe her Ambien. TOYIN called [facility] and arranged for patient to get picked up at 11am via [employer] van. TOYIN notified RN and vp ad products and planning. TOYIN called [facility] and spoke with Valerie letting her know patient will be d/c today. TOYIN also notified patient's manager case at [facility], Kadi Johnson, via voice mail. Sadaf GRANT MSW
--- NOTE | 2018-03-06 10:34 | NURSING ---
Called report to Maggie TAVERAS at [facility]
== END 2018-03-06 09:25 | disposition home or self-care (01) ==
LOC: ED 21:04 → PCU 22:47
PROVIDERS: Admitting Provider Hospitalist; Emergency Provider Emergency Medicine; Visit Provider Internal Medicine
DX: R07.89 Other chest pain (principal); I25.10 Atherosclerotic heart disease of native coronary artery without angina pectoris; J44.9 Chronic obstructive pulmonary disease, unspecified; E78.5 Hyperlipidemia, unspecified; I25.5 Ischemic cardiomyopathy; I11.0 Hypertensive heart disease with heart failure; I50.22 Chronic systolic (congestive) heart failure; I25.2 Old myocardial infarction; I48.0 Paroxysmal atrial fibrillation; E11.9 Type 2 diabetes mellitus without complications; E03.9 Hypothyroidism, unspecified; Z87.891 Personal history of nicotine dependence; I47.2 Ventricular tachycardia; Z95.1 Presence of aortocoronary bypass graft; Z95.810 Presence of automatic (implantable) cardiac defibrillator; Z79.899 Other long term (current) drug therapy; Z79.82 Long term (current) use of aspirin; Z79.02 Long term (current) use of antithrombotics/antiplatelets; E87.6 Hypokalemia; E11.51 Type 2 diabetes mellitus with diabetic peripheral angiopathy without gangrene; Z85.3 Personal history of malignant neoplasm of breast
CPT/HCPCS: 36415; 71045; 71260; 80048; 83735; 84443; 84484; 85025; 93005; 96360; 96361; 96372; 97162; 97165; 97802; 99218; 99285; J7040; Q9967; A4216; G0378

== ENCOUNTER → 2018-08-26 08:25 | Outpatient (CLI) | payer MEDICARE, SELFPAY ==
--- NOTE | 2018-08-26 07:03 | PET_ITS ---
EXAMINATION: FDG PET/CT INDICATIONS: A 78-year-old female with reported history of carcinoma of the breast presenting for restaging examination. COMPARISON EXAMINATION: CT of the chest report dated 03/05/18, CT of the chest, abdomen and pelvis reports dated 06/03/18 INDEX LESION SIZE SUV INTERPRETATION Left axilla (n=multiple) 26.4 x 35.3-mm (largest) (frame 201) 6.7 (max) Fulfills quantitative criteria for viable neoplasm Aorticopulmonary window, bilateral thoracic perihilum 2.1 (max) Quantitative criteria for viable neoplasm are not fulfilled TECHNIQUE: Following the intravenous administration of 15.46 mCi of F-18 deoxyglucose via the right antecubital fossa, multiplanar image acquisitions of the neck, chest, abdomen and pelvis to level of mid thigh, obtained at one hour post radiopharmaceutical administration contemporaneously interpreted with the current CT of the neck, chest, abdomen and pelvis to level of mid thigh, dated 08/26/[address] of the chest report dated 03/05/18, CT of the chest, abdomen and pelvis reports dated 06/03/18 reveal: SERUM GLUCOSE LEVEL: 83 mg/dl. HEIGHT: 64 inches. WEIGHT: 136 lbs. FINDINGS: 1. Multifocal increased glucose metabolism is identified in the left axilla generating a calculated maximal standard uptake value of 6.7. The maximal axial diameter of the largest individual hypermetabolic soft tissue density on review of CT of the chest dated 08/26/18 is 26.4-mm (transverse) x 35.3-mm (AP). 2. Mild increased glucose concentration is observed in the region of the aorticopulmonary window and bilateral thoracic perihilum generating a calculated maximal standard uptake value of 2.1. Quantitative criteria for viable neoplasm are not fulfilled. 3. Normal physiologic distribution of the radiopharmaceutical is apparent in the hepatic (3.1) and splenic parenchyma, both renal units, bladder and visualized intestinal tract. The visualized portion of the cerebral cortex demonstrate symmetric and preserved glucose metabolism. Diffuse radiopharmaceutical concentration is noted in all four quadrants of the abdomen and pelvis. Pertinent CT findings are as follows: CHEST: There is evidence of prior median sternotomy. There is atherosclerotic calcification defined in the thoracic aorta without evidence of dilatation-aneurysm formation. Coronary arterial calcification is observed. There is evidence of a ventricular pacemaker placement. Right axillary soft tissue densities with fatty hilus formation are non-glucose avid. The left breast appears surgically absent. Additional mediastinal soft tissue densities are non-glucose avid. There are no parenchymal densities-nodules defined in the right and left hemithorax demonstrating discernible quantitatively significant increased glucose metabolism. ABDOMEN AND PELVIS: There is atherosclerotic calcification defined in the abdominal aorta without evidence of dilatation-aneurysm formation. Abdominal-pelvic arterial calcification is observed. Right-left inguinal soft tissue densities are non-glucose avid. Colonic diverticulosis is defined. SKELETAL: Degenerative changes are noted in the cervical, thoracic and lumbar spine. There is an apparent compression deformity noted at the level of the seventh thoracic vertebra without evidence of facilitated glucose metabolism. PET/PET/CT Tumor Base -Thigh Subs IMPRESSION: 1. ABNORMAL EXAMINATION INDICATIVE OF MALIGNANT VIABLE NEOPLASM. 2. Increased glucose concentration multifocally apparent in the left axilla fulfills quantitative criteria for viable metastatic neoplasm. 3. Enhanced FDG uptake noted in the aorticopulmonary window, bilateral thoracic perihilum does not fulfill quantitative criteria for malignant transformation. (Abby lee al, Journal of Clinical Oncology 16:2142, 1998). Electronic Signature Al Barr D.O. Electronically Signed: Al Barr DO at 22:59 EST Tel , Service support ,
== END ==
PROVIDERS: Visit Provider Radiology Radiation Oncology
DX: C50.912 Malignant neoplasm of unspecified site of left female breast (principal); C50.612 Malignant neoplasm of axillary tail of left female breast; C77.3 Secondary and unspecified malignant neoplasm of axilla and upper limb lymph nodes
CPT/HCPCS: 78815; A9552

== ENCOUNTER 2018-10-14 05:56 | Day surgery (SDC) | payer MEDICARE, SELFPAY ==
[2018-08-28 15:14] VITALS: BMI 23.8
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
[2018-10-14] VITALS (12 sets, daily range): BP systolic 98–130; BP diastolic 43–83; PULSE 63–78; RESP 16–20; TEMP 36.2–36.9; O2SAT 92–99; BMI 24.3
[2018-10-14 07:00] LABS: Bedside Glucose 123 mg/dL (70-110)
[2018-10-14] MEDS: Cefazolin 2 GM in 0.9% Normal Saline 100 ML IV (07:13)
--- NOTE | 2018-10-14 07:30 | AXNB_PTH ---
PATIENT: KATEY CROSS LOC: [facility] [place] U#:[id number] AGE/SX: 78/F ROOM: RE10/14/[address]: Dr. Al Borges MD : 1940 BED: DIS: 10/15/2018 SPEC #: [id number] RECD: 10/14/18 12:47 STATUS: CHER REReinier #: [id number] KACIE: 10/14/18 07:[address]: Al Borges DEPT: SURGICAL PATHOLOGY RECD BY: Chandra Walden ENTERED: 10/14/18 14:51 SP TYPE: AX NODE BX OTHR DR: Dr. Stephany Murillo MD Tissues: Axillary lymph node, NOS Procedures: Surgery Specimen Level IV HEADER OPERATION: Axillary node dissection PRE-OP DIAGNOSIS: History of left breast cancer TISSUE SUBMITTED: Left axillary contents, suture mccurdy apex of axillary dissection MICROSCOPIC DIAGNOSIS Left axillary contents, axillary node dissection: Metastatic mammary carcinoma involving two out of five lymph nodes. CE:rg 2/28/19 MICROSCOPIC DESCRIPTION Slides are reviewed. GROSS DESCRIPTION Received in fixative is one container labeled with the patient's name and designated left axillary contents, suture mccurdy apex of axillary dissection. The specimen consists of a piece of adipose tissue measuring 15 x 9.5 x 3 cm. A large nodule at one edge of the specimen opposite of the apex measures 5.5 x 4 x 3 cm. Sections of the large nodule reveal fleshy cut surfaces. Multiple additional nodules consistent with lymph nodes are also noted. Silviculture Teacher sections are submitted in nine cassettes as follows: 1-4 - largest nodule present opposite end of the apex, 5 - two possible lymph nodes, 6-9 - each cassette containing one bisected lymph node. No obvious lymph node is noted at the apex of the specimen. Sections will be submitted after additional fixation. / SJ:felix 10/14/18 TC:0 CPT: 45729 ADDENDUM ADDENDUM ADDENDUM ADDENDUM ADDENDUM ADDENDUM ADDENDUM ADDENDUM ADDENDUM ADDENDUM ADDENDUM 12/04/2018 15:36 ADDENDUM 12/04/2018 15:36 ADDENDUM 12/04/2018 15:36 ADDENDUM 12/04/2018 15:36 ADDENDUM 12/04/2018 15:36 The two lymph nodes with metastatic carcinoma measures 1 and 5.5 cm in greatest dimension and almost completely involved by the metastatic carcinoma. Focal minimal extranodal extension is noted. The specimen is reviewed at the request of Dr. Caballero at the [facility]. SJ:felix 12/04/18 Case has been reviewed in consultation with Dr. Rousseau who concurs with the above diagnosis. IDC:AM
[2018-10-14] MEDS: Bupivacaine Mpf 0.5% 30 ML VIAL (08:49)
--- NOTE | 2018-10-14 09:06 | OP.PCM_ITS ---
Report of Operation Date of Procedure: 10/14/18 Pre-Operative Diagnosis: locally metastatic left breast cancer Post-Operative Diagnosis: locally metastatic left breast cancer - matted axillary nodes Surgery/Procedure Performed:: left axillary dissection Description of Surgical Findings:: as above management aide: Sandra Aguero Type of Anesthesia:: General Anesthesiologist: Luis Felipe Galvan - ASA3 Specimen's removed: left axillary contents Drains: SKYLER x 1 Estimated Blood Loss (mL): 60 Fluids Replaced: 500 Description of Procedure: The patient?s surgical site was marked in the holding area and the patient concurred that this was the planned operative site. The patient was then brought to the operative suite. Sign was performed verifying patient, site, position, SCIP antibiotic prophylaxis-2 g of Ancef and DVT prophylaxis with SCDs. Following an LMA anesthesia, Ultrasound was also used to evaluate the area of the tumor. The mass on ultrasound was noted to be approximately 3cm in size. The patient?s left chest axilla, arm and neck were then prepped and draped in the usual fashion. Timeout was performed verifying patient, site, position. The incision was made for the axillary incision lateral to the prior mastectomy incision . Dissection was continued in the axilla for a formal axillary dissection. Posteriorly the neurovascular bundle for the thoracodorsal nerve was identified and protected. there was very large lymph nodes present including multiple nodes above the largest lower node that proceeded up in a matted fashion. Dissection was then continued up to the level of the axillary vein. The vein and artery going to the axillary contents was dissected and clipped with small clips and divided. As dissection was continued the traversing vessels and cutaneous nerves were divided. The axillary contents was left in continuity for the largest x-ray dissection but then multiple additional suspicious nodes traveling up along the vascular bundle towards the levelto higher nodes were harvested as possible. 1 Abraham-Sotelo drain was placed in the lateral in the axilla and secured with 3-0 nylon suture. was approximated with interrupted 3-0 Vicryls. Skin was closed with 4-0 Monocryl running subcuticular suture and Steri-Strips were applied. Drain dressings and incisional dressings were placed. All sponge and instrument counts were correct. The patient was extubated and brought to recovery room in stable condition. - Admit VTE Documentation VTE Present on Admission: No VTE Mechan Device Prophylaxis: SCD's VTE Pharm Prophylaxis ordered?: Yes
[2018-10-14 09:40] LABS: Bedside Glucose 126 mg/dL (70-110)
--- NOTE | 2018-10-14 12:07 | NURSING ---
CONTINUOS POX, ALARMING 79%, PT HAD REMOVED O2 NC D/T NOSE ITCHING. POX BACK TO 91% AFTER REAPPLYING O2
[2018-10-14 12:40] LABS: Bedside Glucose 152 mg/dL (70-110)
--- NOTE | 2018-10-14 13:30 | CASEMGMT ---
RN CM Note Presentation: scheduled surgery for L axillary dissection for metastatic L breast cancer. Intro role of CM to patient who states she will need assistance on dc and would like to go to SNF to recover. Demographics verified. PCP: Dr. Murillo- pt has first appointment with this physician to establish on October @ 3 pm-verified with office. Updated in computer. Specialist: Dr. Borges Pharmacy: [facility] Living Arrangements: Per pt, lives in Assisted Living Apartment Referral: possible SNF Placement, call and message left with TOYIN Franco to notify. Mercedes LEMONSN RN ACM
[2018-10-14] MEDS: Enoxaparin 40 MG/0.4 ML Syringe SC (13:45)
--- NOTE | 2018-10-14 16:30 | CASEMGMT ---
Social Work Note RN EHSAN Gonzalez updated this worker that pt is from [facility] but would like to go to SNF at discharge. SW met with pt. SW introduced self and role at [facility]. Pt is alert and orientated x3. Pt confirms that she is from [facility] but would like to go to [facility]. SW asked pt what reasons she feels she is unable to return to [facility]. Pt states that she thinks she will get more care at [facility], she won't be upstairs by herself, she won't have to comb her hair and she won't have to go downstairs for meals. SW explained that pt will need to have a skillable need for insurance to pay for her to go to SNF. SW explained that PT/OT have been ordered for pt and can see how pt does with PT/OT. Pt states that she has a son named Manoj who visits her a lot and they talk on the phone a lot. Pt states that she feels like she is depressed. Pt states that she sometimes gets depressed and she has been struggling with depression off and on. Pt states that she is currently taking Prozac for depression. SW educated pt on referral process and that pt will need pre-cert from insurance. Pt states understanding. PT/OT have not entered notes yet for pt. SW to send referral to [facility] once PT/OT works with pt and enters notes. Plan: [facility] pending acceptance and pre-cert Nasreen Lieberman SCHOOL ADMISSIONS REPRESENTATIVE, SPLIT LEATHER DEPARTMENT SUPERVISOR
[2018-10-14] MEDS: Ferrous Sulfate 325 MG Tablet PO (16:58)
[2018-10-14] MEDS: Multivitamins,Ther W-Minerals Tablet 1 TABLET PO (16:58)
--- NOTE | 2018-10-14 17:05 | CHAPLAIN ---
patient was sleeping; left a calling card
[2018-10-14 17:10] LABS: Bedside Glucose 172 mg/dL (70-110)
[2018-10-14] MEDS: oxyCODONE 5 MG Tablet PO ×2 (18:14→22:38)
[2018-10-14] MEDS: Multivitamin (Healthy Eyes) Capsule 1 CAP PO (22:25)
[2018-10-14] MEDS: Lactated Ringers 1,000 ML 40 ML IV (22:25)
[2018-10-14] MEDS: Metoprolol Tartrate 50 MG Tablet PO (22:26)
[2018-10-14] MEDS: RisperiDONE 0.25 MG Tablet PO (22:26)
[2018-10-14] MEDS: traZODone 50 MG Tablet PO (22:26)
[2018-10-14] MEDS: MELATONIN 10 MG TABLET PO (22:27)
[2018-10-14] MEDS: Pravastatin 40 MG Tablet PO (22:27)
[2018-10-14] MEDS: Gabapentin 100 MG Capsule PO (22:27)
[2018-10-14] MEDS: Pentoxifylline 400 MG Tablet PO (22:28)
[2018-10-14] MEDS: Pregabalin 50 MG Capsule 100 MG PO (22:38)
[2018-10-14] MEDS: ALPRAZolam 0.25 MG Tablet PO (22:38)
[2018-10-15] VITALS (7 sets, daily range): BP systolic 124–129; BP diastolic 46–55; PULSE 71–80; RESP 17–18; TEMP 36.5–36.9; O2SAT 82–97
[2018-10-15] MEDS: Levothyroxine 75 MCG Tablet PO (05:32)
[2018-10-15] MEDS: Albuterol 2.5 MG/3 ML VIAL.NEB. INHALATION (07:55)
[2018-10-15] MEDS: Ferrous Sulfate 325 MG Tablet PO (08:26)
[2018-10-15] MEDS: Aspirin 325 MG Tablet PO (08:28)
[2018-10-15] MEDS: Multivitamins,Ther W-Minerals Tablet 1 TABLET PO (08:28)
--- NOTE | 2018-10-15 09:36 | NURSING ---
Pt resting in bed with eyes closed. SPO2 alarms sounded and O2 was noted to be 83%- with good wave form. This RN entered room and pt had oxygen out of nares and resting on bridge of nose. This RN assisted patient on replacing into nares and provided education// notification that spo2 is dropping when sleeping and pt needs oxygen. Pt verbalized understanding.
--- NOTE | 2018-10-15 09:52 | CASEMGMT ---
Social Work Note SW placed a call to PT/OT to evaluate pt soon for possible SNF placement. Nasreen Lieberman SILVERWARE CLEANER, HAND CUTTER APPRENTICE
[2018-10-15] MEDS: amLODIPine 5 MG Tablet PO (10:12)
[2018-10-15] MEDS: Pantoprazole Sodium 20 MG Tablet PO (10:12)
[2018-10-15] MEDS: Bumetanide 0.5 MG Tablet PO (10:12)
[2018-10-15] MEDS: DULoxetine Hcl 60 MG Capsule PO (10:12)
[2018-10-15] MEDS: Loratadine 10 MG Tablet PO (10:13)
[2018-10-15] MEDS: Donepezil HCl 5 MG Tablet PO (10:13)
[2018-10-15] MEDS: Enoxaparin 40 MG/0.4 ML Syringe SC (10:14)
[2018-10-15] MEDS: Pentoxifylline 400 MG Tablet PO (10:15)
[2018-10-15] MEDS: Clopidogrel Bisulfate 75 MG Tablet PO (10:15)
[2018-10-15] MEDS: Metoprolol Tartrate 50 MG Tablet PO (10:50)
--- NOTE | 2018-10-15 11:21 | CASEMGMT ---
Addendum entered by Nasreen Lieberman 10/15/18 13:04: TOYIN received message from Madelin at [facility] stating they are able to accept pt pending pre-cert. Original Note: Social Work Note SW faxed referral to [facility]. TOYIN placed a call to Madelin at [facility] and provided referral. Madelin states she will review referral. Plan: [facility] pending acceptance and pre-cert Nasreen Lieberman LOCKSTITCH SLEEVE SETTER, FLIGHT ATTENDANT
[2018-10-15] MEDS: Fenofibrate 145 MG Tablet PO (11:46)
[2018-10-15 12:06] LABS: Bedside Glucose 157 mg/dL (70-110)
[2018-10-15] MEDS: Acetaminophen 325 MG Tablet 650 MG PO (13:39)
--- NOTE | 2018-10-15 13:44 | CASEMGMT ---
Social Work Note SW received call from Madelin at [facility] stating pre-cert has been obtained and pt is able to discharge today. SW completed convalescent 7000 in HENS. Original placed on pt's chart. TOYIN placed green sheet and transportation form on pt's chart. TOYIN updated Charge Nurse Tavia on pt able to discharge today. Charge Nurse Tavia states she will call Dr. Borges's office as he will need to complete discharge paperwork. TOYIN placed copy of transfer to extended care facility document on pt's chart. TOYIN updated pt on acceptance and approval to go to [facility]. Pt gave this worker permission to call her son David and her cousin Sunshine ([phone]) to update on discharge today. TOYIN placed a call to pt's son David and left him a message updating him on discharge and placed a call to pt's cousin Sunshine to update on discharge. TOYIN placed a call to [facility] and spoke with Kristi and updated her that pt will be discharged to [facility] for short term rehabilitation. Plan: Discharge to [facility] today skilled Nasreen Lieberman COMPANY MARKER, EDGE INKER UPPERS
--- NOTE | 2018-10-15 14:25 | DCINST_ITS ---
You will use the following diet at home:: No restrictions Your food should be the consistency of: Regular Discharge Activity: Return to Normal Activity Call your doctor if your incision/area has: Continuous Slow Oozing, Sudden Increased Bleeding, Increased Pain/ Swelling, Increased Redness Additional Dressing/Incision Instructions:: measure and record SKYLER drain output - total amount daily. record totals on sheet Allergies/Adverse Reactions: Allergies No Known Allergies Allergy (Verified 10/11/18 15:50) Medications to take at Discharge Aspirin 325 mg PO DAILY@0800 03/24/16 Duloxetine Hcl [Cymbalta] 60 mg PO DAILY 03/24/16 Isosorbide Mononitrate [Imdur] 120 mg PO DAILY 03/24/16 Levothyroxine [Synthroid] 75 mcg PO DAILY 03/24/16 Metoprolol Tartrate [Lopressor (beta chandra)] 50 mg PO BID 03/24/16 Omeprazole [Prilosec] 20 mg PO DAILY 03/24/16 Vit A/Vit C/Vit E/Zinc/Copper [Preservision Areds Softgel] 1 ea PO QHS 03/24/16 Cholecalciferol (Vitamin D3) [Vitamin D3] 50,000 unit PO QWEEK 09/18/16 Clopidogrel Bisulfate [Plavix] 75 mg PO DAILY 09/18/16 fluticasone 50 mcg/actuation nasal spray,suspension 2 spray INTRANASAL QDAY PRN 08/29/17 promethazine 12.5 mg tablet 12.5 mg PO Q8H PRN tab 08/29/17 nitroglycerin 0.4 mg sublingual tablet 0.4 mg SUBLINGUAL Q5M PRN 10/30/17 pentoxifylline ER 400 mg tablet,extended release 400 mg PO BID 10/30/17 bumetanide 0.5 mg tablet 0.5 mg PO QDAY 12/03/17 exemestane 25 mg tablet 25 mg PO QDAY 12/03/17 potassium chloride ER 10 mEq tablet,extended release 40 meq PO BID tab 12/03/17 pravastatin 40 mg tablet 40 mg PO QHS 12/03/17 pregabalin 100 mg capsule 100 mg PO QHS 12/03/17 fenofibrate 160 mg tablet 160 mg PO QDAY #30 tab 12/14/17 Amlodipine [Norvasc] 5 mg PO DAILY #30 tab 03/06/18 Melatonin 10 mg PO QHS #30 tab 03/06/18 ALPRAZolam [Xanax] 0.25 mg PO QHS 10/11/18 Albuterol IH (ProAir) [Proair Hfa] 2 puff INHALATION TID PRN 10/11/18 Donepezil HCl [Aricept] 5 mg PO DAILY 10/11/18 Ferrous Sulfate 325 mg PO BIDCM 10/11/18 Gabapentin [Neurontin] 100 mg PO QHS 10/11/18 Loratadine [Claritin] 10 mg PO DAILY 10/11/18 Multivitamin with Iron [Tab-A-Kathy with Iron] 1 each PO BID 10/11/18 Palbociclib [Ibrance] 125 mg PO DAILY 10/11/18 Potassium Chloride [Klor-Con] 20 meq PO LUNCH 10/11/18 Propylene Glycol [Systane Balance] 1 drop RIGHT EYE BID 10/11/18 Risperidone 0.25 mg PO QHS 10/11/18 traZODone [Desyrel] 50 mg PO QHS 10/11/18 Acetaminophen [Tylenol Tablet] 650 mg PO Q6H PRN PRN tablet 10/15/18 Dextran 70/He-Cell [Tears Naturale, Artificial Tears] 1 drop RIGHT EYE BID bottle 10/15/18 Pantoprazole Sodium [Protonix] 20 mg PO DAILY tablet 10/15/18 Pentoxifylline [Trental] 400 mg PO BID tablet 10/15/18 Primary Care Physician: Stephany Murillo MD [Primary Care Provider] - Test Results: Test results from this visit will be discussed in further detail at your follow- up appointment, if applicable. Please Follow Up With: Al Borges MD When: Sunday - call for appointment
--- NOTE | 2018-10-15 14:28 | DS.PCM_ITS ---
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) ICD Implant November 2002; 01/20/10 ICD generator replacement; Presence of stent in coronary artery (Chronic ~11/30/01) PTCA/stent to mid RCA 11/30/01; 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) PTCA/stent to mid RCA in November 2001; CABG in November 2002 with DAVIS to LAD, SVG to obtuse marginal, and SVG to PDA; Ischemic cardiomyopathy (Chronic) Ventricular tachyarrhythmia (Chronic) Palpitations (Chronic) Aortocoronary bypass status (Chronic ~12/08/02) CABG 12/08/02, DAVIS to LAD, SVG to OBtuse marginal & to PDA; Old myocardial infarction (Chronic) Angina pectoris (Chronic) Diabetes mellitus (Chronic) Paroxysmal a-fib (Chronic) Ventricular tachycardia (paroxysmal) (Chronic) HLD (hyperlipidemia) (Chronic) Hypothyroidism (Chronic) Paroxysmal SVT (supraventricular tachycardia) (Chronic) Hospital Course and Treatment Operations: None, - - left axillary dissection Summary of Care Provided: The patient is a 78 year old F with a complex past medical history with a history of breast cancer. please see admission history and physical. The patient was admitted for left axillary dissection for known local regional recurrence in the left axilla. She underwent the surgical procedure on October 14. With Abraham-Sotelo drain placed she did well and was ready to be discharged from a surgical standpoint due to her multiple medical comorbidities including blindness, instability, and hypoxia without nasal cannula oxygen patient will be admitted to group home facility beyond her usual assisted living facility. - Physical Exam General: Alert, Oriented x3, Cooperative Lungs: Diminished Cardiovascular: Regular rate, Regular Rhythm Abdomen: Bowel Sounds Present, Soft, Non Tender Extremities: - - axillary incision intact, Abraham-Sotelo drain with serosanguineous drainage. Vital Signs Temp Pulse Resp BP Pulse Ox 98.4 F 73 18 129/55 H 97 02/26/19 13:35 10/15/18 13:35 10/15/18 13:35 10/15/18 13:35 10/15/18 13:35 Oxygen Flow Rate (L/min) 2 Oxygen Delivery Method Room Air Weight: 64.3 kg Body Mass Index (BMI) 24.3 Finger Stick Blood Glucose 126 Intake and Output for Last 24 Hours 10/13/18 10/14/18 10/15/18 23:59 23:59 23:59 Intake Total 1248 / 1248 2281 / 2281 Output Total 45 / 45 270 / 270 Balance 1203 / 1203 2010 POC Glucose 10/15/18 10/14/18 11:59 16:45 POC Glucose 157 H 172 H Discharge Activity: Return to Normal Activity Call your doctor if your incision/area has: Continuous Slow Oozing, Sudden Increased Bleeding, Increased Pain/ Swelling, Increased Redness Additional Dressing/Incision Instructions:: measure and record SKYLER drain output - total amount daily. record totals on sheet Home Medications: Medications to take at Discharge Aspirin 325 mg PO DAILY@0800 03/24/16 Duloxetine Hcl [Cymbalta] 60 mg PO DAILY 03/24/16 Isosorbide Mononitrate [Imdur] 120 mg PO DAILY 03/24/16 Levothyroxine [Synthroid] 75 mcg PO DAILY 03/24/16 Metoprolol Tartrate [Lopressor (beta chandra)] 50 mg PO BID 03/24/16 Omeprazole [Prilosec] 20 mg PO DAILY 03/24/16 Vit A/Vit C/Vit E/Zinc/Copper [Preservision Areds Softgel] 1 ea PO QHS 03/24/16 Cholecalciferol (Vitamin D3) [Vitamin D3] 50,000 unit PO QWEEK 09/18/16 Clopidogrel Bisulfate [Plavix] 75 mg PO DAILY 09/18/16 fluticasone 50 mcg/actuation nasal spray,suspension 2 spray INTRANASAL QDAY PRN 08/29/17 promethazine 12.5 mg tablet 12.5 mg PO Q8H PRN tab 08/29/17 nitroglycerin 0.4 mg sublingual tablet 0.4 mg SUBLINGUAL Q5M PRN 10/30/17 pentoxifylline ER 400 mg tablet,extended release 400 mg PO BID 10/30/17 bumetanide 0.5 mg tablet 0.5 mg PO QDAY 12/03/17 exemestane 25 mg tablet 25 mg PO QDAY 12/03/17 potassium chloride ER 10 mEq tablet,extended release 40 meq PO BID tab 12/03/17 pravastatin 40 mg tablet 40 mg PO QHS 12/03/17 pregabalin 100 mg capsule 100 mg PO QHS 12/03/17 fenofibrate 160 mg tablet 160 mg PO QDAY #30 tab 12/14/17 Amlodipine [Norvasc] 5 mg PO DAILY #30 tab 03/06/18 Melatonin 10 mg PO QHS #30 tab 03/06/18 ALPRAZolam [Xanax] 0.25 mg PO QHS 10/11/18 Albuterol IH (ProAir) [Proair Hfa] 2 puff INHALATION TID PRN 10/11/18 Donepezil HCl [Aricept] 5 mg PO DAILY 10/11/18 Ferrous Sulfate 325 mg PO BIDCM 10/11/18 Gabapentin [Neurontin] 100 mg PO QHS 10/11/18 Loratadine [Claritin] 10 mg PO DAILY 10/11/18 Multivitamin with Iron [Tab-A-Kathy with Iron] 1 each PO BID 10/11/18 Palbociclib [Ibrance] 125 mg PO DAILY 10/11/18 Potassium Chloride [Klor-Con] 20 meq PO LUNCH 10/11/18 Propylene Glycol [Systane Balance] 1 drop RIGHT EYE BID 10/11/18 Risperidone 0.25 mg PO QHS 10/11/18 traZODone [Desyrel] 50 mg PO QHS 10/11/18 Acetaminophen [Tylenol Tablet] 650 mg PO Q6H PRN PRN tablet 10/15/18 Dextran 70/He-Cell [Tears Naturale, Artificial Tears] 1 drop RIGHT EYE BID bottle 10/15/18 Pantoprazole Sodium [Protonix] 20 mg PO DAILY tablet 10/15/18 Pentoxifylline [Trental] 400 mg PO BID tablet 10/15/18 Primary Care Physician: Stephany Murillo MD [Primary Care Provider] - Please Follow Up With: Al Borges MD When: Sunday - call for appointment Medical Necessity - Tobacco Use Smoking Status: Former smoker Tobacco Use: Non-smoker Meaningful Use Info Meaningful Use Diagnoses (Choose all that apply): None applicable
--- NOTE | 2018-10-15 14:58 | NURSING ---
transfer to extended care facility forms and d/c med list faxed to Dr. Borges's office at this time- as doctor does not plan to come back today.
--- NOTE | 2018-10-15 15:10 | CHAPLAIN ---
Type of Pastoral Visit _x__ Initial Visit ___ Follow-up Visit ___ On-call Visit ___ General Patient Visit ___ Spiritual Assessment ___ Family Conference ___ Bereavement ___ Rapid Response ___ Code Blue ___ Other (describe below) Pastoral Care Referral From _x__ Patient ___ Family ___ Nurse ___ Physician ___ Quality Control Coordinator ___ Billet Sawyer ___ Other (describe below) Sacrament/Intervention _x__ Active listening ___ Anointing ___ Holiness ___ Bereavement ___ Communion ___ Alexandra exploration ___ ___ Life review _x__ Prayer ___ Reconciliation ___ Sacrament of Sick _x__ Supportive presence ___ Wedding ___ Other (describe below) Pastoral Comments patient is very tired and apologizes for not being able to talk long
== END 2018-10-15 17:35 ==
LOC: SDC 05:59 → AC 05:59 → MS2 08:39
PROVIDERS: Family Provider Internal Medicine; PCP Internal Medicine; Referring Provider Surgery; Visit Provider Surgery
PROC: (CPT 38525; principal; 2018-10-14 07:15)
DX: C50.912 Malignant neoplasm of unspecified site of left female breast (principal); C77.3 Secondary and unspecified malignant neoplasm of axilla and upper limb lymph nodes; I25.2 Old myocardial infarction; I47.2 Ventricular tachycardia; I25.10 Atherosclerotic heart disease of native coronary artery without angina pectoris; E03.9 Hypothyroidism, unspecified; I11.0 Hypertensive heart disease with heart failure; I50.22 Chronic systolic (congestive) heart failure; J44.9 Chronic obstructive pulmonary disease, unspecified; E11.22 Type 2 diabetes mellitus with diabetic chronic kidney disease; E11.40 Type 2 diabetes mellitus with diabetic neuropathy, unspecified; M79.7 Fibromyalgia; K21.9 Gastro-esophageal reflux disease without esophagitis; E78.5 Hyperlipidemia, unspecified; Z79.02 Long term (current) use of antithrombotics/antiplatelets; Z79.899 Other long term (current) drug therapy; Z79.82 Long term (current) use of aspirin; Z17.0 Estrogen receptor positive status [ER+]; I48.0 Paroxysmal atrial fibrillation; E11.51 Type 2 diabetes mellitus with diabetic peripheral angiopathy without gangrene; H35.52 Pigmentary retinal dystrophy; Z87.891 Personal history of nicotine dependence; Z95.810 Presence of automatic (implantable) cardiac defibrillator
CPT/HCPCS: 38525; 82962; 88305; 94640; 97162; 97166; 97802; J7120; J2405

== ENCOUNTER → 2018-10-22 05:00 | Outpatient (REF) | payer MEDICARE, SELFPAY ==
[2018-10-14 10:33] VITALS: BMI 24.3
[2018-10-22 08:38] LABS: Hematocrit 33.9 % (37-47); Hemoglobin 11.4 g/dl (12.0-15.0); Mean Corp Hgb Conc 33.6 g/gl (32-36); Mean Corpuscular Volume 118.9 fL (81-99); Mean Platelet Vol. 11.9 fl (6.2-12.0); Platelet Count 177 K/mm3 (150-450); RBC Distribution Width CV 13.8 % (11.6-14.6); RBC Distribution Width SD 56.6 fl (35.1-43.9); Red Blood Count 2.85 M/mm3 (4.2-5.4); White Blood Count 3.9 K/mm3 (4.4-11.0)
[2018-10-22 08:41] LABS: Scan Indicated on CBC? Y/N NO
[2018-10-22 08:58] LABS: Anion Gap 7 (5-15); BUN 10 mg/dL (7-18); BUN/Creat Ratio 11.6 RATIO (10-20); Calcium,Total 8.8 mg/dL (8.5-10.1); Chloride 104 mmol/L (98-107); Creatinine, Serum 0.86 mg/dL (0.55-1.02); EST Glomerular Filtration Rate 68 mL/min (>60); Est Glom Filt Rate - Afr Amer 82 mL/min (>60); Glucose 118 mg/dL (74-106); Potassium 3.4 mmol/L (3.5-5.1); Sodium Level 142 mmol/L (136-145)
== END ==
LOC: OLS.AVEB 05:00
PROVIDERS: Visit Provider Family Medicine
DX: I10 Essential (primary) hypertension (principal); E03.9 Hypothyroidism, unspecified
CPT/HCPCS: 36415; 80048; 84443; 85027

== ENCOUNTER → 2018-10-28 10:25 | Outpatient (REF) | payer MEDICARE, SELFPAY ==
[2018-10-14 10:33] VITALS: BMI 24.3
[2018-10-28 11:00] LABS: Hematocrit 32.5 % (37-47); Hemoglobin 10.8 g/dl (12.0-15.0); Mean Corp Hgb Conc 33.2 g/gl (32-36); Mean Corpuscular Hgb 39.3 pg (27.0-32.0); Mean Corpuscular Volume 118.2 fL (81-99); Mean Platelet Vol. 12.4 fl (6.2-12.0); Platelet Count 140 K/mm3 (150-450); RBC Distribution Width CV 13.8 % (11.6-14.6); RBC Distribution Width SD 56.3 fl (35.1-43.9); Red Blood Count 2.75 M/mm3 (4.2-5.4); Scan Indicated on CBC? Y/N NO; White Blood Count 12.6 K/mm3 (4.4-11.0)
[2018-10-29 06:11] LABS: Anion Gap 11 (5-15); BUN 8 mg/dL (7-18); BUN/Creat Ratio 10.4 RATIO (10-20); Calcium,Total 8.4 mg/dL (8.5-10.1); Chloride 100 mmol/L (98-107); Creatinine, Serum 0.77 mg/dL (0.55-1.02); EST Glomerular Filtration Rate 77 mL/min (>60); Est Glom Filt Rate - Afr Amer 94 mL/min (>60); Glucose 131 mg/dL (74-106); Potassium 3.1 mmol/L (3.5-5.1); Sodium Level 142 mmol/L (136-145)
== END ==
LOC: OLS.AVEB 10:25
PROVIDERS: Visit Provider Family Medicine
DX: R53.83 Other fatigue (principal); F50.9 Eating disorder, unspecified
CPT/HCPCS: 36415; 80048; 85027

== ENCOUNTER 2018-11-19 17:17 | Observation (INO) | payer MEDICARE, SELFPAY ==
[2018-10-14 10:33] VITALS: BMI 24.3
[2018-11-19] VITALS (15 sets, daily range): BP systolic 106–158; BP diastolic 52–106; PULSE 78–161; RESP 15–23; TEMP 36.4–36.8; O2SAT 94–98; BMI 23.1; BMI 22.8; BMI 22.9
--- NOTE | 2018-11-19 17:39 | RAD_ITS ---
STUDY: X-RAY CHEST REASON FOR EXAM: Female, 78 years old. Fatigue. TECHNIQUE: Single AP portable view of the chest. COMPARISON: March 04, 2018. FINDINGS: There is a minimally decreased inspiratory effort compared to prior study. There is no new infiltrate or mass within the lungs. A focal density at the right lung base seen on the prior study is now obscured by a pacemaker generator. There is no demonstrated pleural abnormality. Sternal cerclage wires and vascular clips are present from a prior sternotomy and coronary artery bypass graft procedure (CABG). The heart is normal in size. A left-sided cardiac pacemaker/ICD is no longer present. There is now a right sided device with the generator overlying the right lung base. Normal mediastinum and devonte. Normal visualized pulmonary arteries. There is atherosclerotic calcification of the aortic arch with tortuosity. The thoracic spine is obscured by the mediastinum. Normal visualized ribs, clavicles, and shoulders. There is no demonstrated abnormality of the visualized soft tissue structures of the upper abdomen. RAD/Chest 1 View (Portable) IMPRESSION: 1. Change in pacemaker when compared to prior study. The generator now lies on the right. 2. No acute cardiopulmonary disease or other major interval change. Electronically Signed: Neal Falcon DO at 18:16 EDT Tel [phone], Service support ,
--- NOTE | 2018-11-19 17:39 | EKG12_ITS ---
Test Reason : Blood Pressure : / mmHG Vent. Rate : 160 BPM Atrial Rate : 326 BPM P-R Int : 000 ms QRS Dur : 106 ms QT Int : 312 ms P-R-T Axes : 000 055 212 degrees QTc Int : 509 ms Atrial fibrillation with RVR Marked ST abnormality, possible anterolateral subendocardial injury Abnormal ECG Confirmed by RADHA BOB ([id number]), fashion editor NOEMI ROJO ([id number]) on 11/22/2018 11:08:30 AM Referred By: Jean Regalado Confirmed By:RADHA BOB
--- NOTE | 2018-11-19 17:43 | ED.DCSUM_ITS ---
- ER Visit Summary Date of Service: 11/19/18 Chief Complaint: Fatigue History of Present Illness: The patient is a 78 F history of CAD, hypertension, cardiac stents, A. fib, blind, cardiomyopathy, prior history of left breast CA with metastases to the lymph nodes with a mastectomy. Patient states she just felt weak for days to weeks. Gradual onset. She denies any nausea vomiting or diarrhea. No melena. No headache, chest pain or abdominal pain. No known fever. No dysuria. Physical Examination: Elderly female no acute distress vital signs are stable and afebrile. Pulse ox 90% on room air no hypoxia. HEENT exam legally blind no facial trauma or swelling moist mucous membranes. Neck nontender. No lymphadenopathy. Lungs clear to auscultation bilaterally. Heart irregularly irregular. Abdomen is soft and nontender normal bowel sounds no peritoneal signs. Chest wall nontender. Patient is moving all 4 extremities. No deformity. Nontender. No redness. Neurovascularly intact. Calves are nontender without edema. Back is nontender. Neurologically she is blind but otherwise moving all 4 extremities. She is answering questions and following commands. She has no focal motor deficits. Test Results: Chest x-ray one view portable showed no acute abnormality. Right-sided pacemaker defibrillator. Initial EKG sinus rhythm with frequent PVCs. CBC White count of 5. Hemoglobin 9.4. Electrolytes potassium 3.0 with a normal creatinine and gap. UA normal. No signs of infection. Troponin normal. Patient went in the accelerated heart rate a repeat EKG was obtained and shows A. fib heart rate of 160. She was treated with IV Cardizem bolus x20. Heart rate was still in the 120-130 range. She remained in A. fib. She was then treated with a second bolus of Cardizem and eventually placed on a Cardizem drip. Emergency Department Course and Treatment: Elderly female with generalized weakness. Treatment Plan: Due to her A. fib RVR and Cardizem drip she will be admitted to the PCU are spoken to the hospitalist. Disposition: Admission Impression: Acute fatigue and generalized weakness Recurrent A. fib with RVR Mild hypokalemia This note was generated with [employer] dictation software. It may contain incorrect words, spelling, and punctuation that were not noted in review of the chart prior to signing ED Disposition - Plan for ED Patient: Referrals: Stephany Murillo MD [Primary Care Provider] -
[2018-11-19 18:04] LABS: Absolute Lymphocyte Count 3.07 X10^3/ul (0.83-4.51); Absolute Neutrophil Count 1.8 X10^3/uL (2.0-7.7); Basophil# 0.06 X10^3/uL; Basophil% 1.1 % (0-1); Eosinophil# 0.04 X10^3/uL; Eosinophils% 0.7 % (0-5); Hematocrit 32.5 % (37-47); Hemoglobin 11.4 g/dl (12.0-15.0); Lymphocyte # 3.07 X10^3/ul (4.0); Lymphocyte % 54.4 % (19-41); Mean Corp Hgb Conc 35.1 g/gl (32-36); Mean Corpuscular Volume 108.3 fL (81-99); Mean Platelet Vol. 12.5 fl (6.2-12.0); Monocyte# 0.69 X10^3/uL; Monocyte% 12.2 % (0-10); Neutrophil # 1.77 X10^3/uL (2.7-7.7); Neutrophil % 31.4 % (47-70); POSITIVE COUNT NO; POSITIVE DIFFERENTIAL NO; POSITIVE MORPHOLOGY NO; Platelet Count 118 K/mm3 (150-450); RBC Distribution Width CV 15.7 % (11.6-14.6); RBC Distribution Width SD 61.1 fl (35.1-43.9); White Blood Count 5.6 K/mm3 (4.4-11.0)
[2018-11-19 18:08] LABS: Anion Gap 6 (5-15); BUN 14 mg/dL (7-18); BUN/Creat Ratio 15.1 RATIO (10-20); Calcium,Total 9.3 mg/dL (8.5-10.1); Chloride 105 mmol/L (98-107); Creatinine, Serum 0.93 mg/dL (0.55-1.02); EST Glomerular Filtration Rate 62 mL/min (>60); Est Glom Filt Rate - Afr Amer 75 mL/min (>60); Estimated Creatinine Clearance 43.75 ml/min; Glucose 106 mg/dL (74-106); Sodium Level 140 mmol/L (136-145)
[2018-11-19 18:33] LABS: Bacteria 0 SEEN /hpf (None Seen); Mucous, Urine 0 SEEN /hpf (<or=2+); Red Blood Cells-Urine 0 SEEN /hpf (0-5); Squamous Epithelial Cells - UA 0 SEEN /hpf (5-10); White Blood Cells 0 SEEN /hpf (0-5)
[2018-11-19 18:39] LABS: Color, Urine Yellow (Yellow); Glucose, Dipstick Normal (Normal); Ketone-Dipstick Negative (Negative); Leukocyte Esterase-Dipstick Negative /ul (Negative); Nitrite-Dipstick Negative (Negative); Occult Blood-Urine Negative /ul (Negative); Protein-Dipstick Negative (Negative); Specific Gravity, Urine 1.015 (1.002-1.030); Urine Bilirubin Dipstick Negative (Negative); Urine Clarity Clear (Clear); Urine Urobilinogen 1 mg/dl (Normal)
[2018-11-19 18:53] LABS: Hyaline Cast 0-5 SEEN /lpf (0-5)
[2018-11-19] MEDS: dilTIAZem 25 MG/5 ML Vial 20 MG IV BOLUS ×2 (20:50→21:36)
--- NOTE | 2018-11-19 20:56 | ED.RN ---
pt with increase hr in 160's. this rn called for ekg. dr. rudd informed. cardizem given as ordered will, continue to monitor.
--- NOTE | 2018-11-19 22:16 | PCM.HP.STD ---
Problem List (1) Atrial fibrillation with RVR Status: Acute History of Present Illness Date of Admission: 11/19/18 Chief Complaint: fatigue The patient is a 78 year old F with a significant history of metastatic breast cancer status post left mastectomy and on chemotherapy; CAD status post CABG; paroxysmal A. fib who presented to the emergency department because of 2-3 days history of persistent fatigue. She lives at an assisted living facility. She was recently at the hospital where her pacemaker got moved from her left-sided chest to her right sided chest in preparation for radiation of her left shoulder. After the hospitalization she went to a residential and then she was discharged back to her assisted living facility about 2-3 days ago. She reported that after discharge back to the assisted living facility she has been fatigued. Associated with her symptoms is poor appetite. The emergency department she was found to be in A. fib with RVR with heart rates in the 140s and Cardizem x2 bolus could not control her rate for which reason she was started on a Cardizem drip. Past Medical History Past Medical History (Chronic Problems): Chronic Problems (Last Reviewed 11/20/18 @ 06:28 by Jean Regalado MD) Essential hypertension (Chronic) Chronic systolic congestive heart failure (Chronic) Nonrheumatic mitral valve regurgitation (Chronic) Nonrheumatic tricuspid (valve) insufficiency (Chronic) 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) ICD Implant November 2002; 01/20/10 ICD generator replacement; Presence of stent in coronary artery (Chronic ~11/30/01) PTCA/stent to mid RCA 11/30/01; Atherosclerotic heart disease of [place] coronary artery without angina pectoris (Chronic) PTCA/stent to mid RCA in November 2001; CABG in November 2002 with DAVIS to LAD, SVG to obtuse marginal, and SVG to PDA; Ischemic cardiomyopathy (Chronic) Ventricular tachyarrhythmia (Chronic) Palpitations (Chronic) Aortocoronary bypass status (Chronic ~12/08/02) CABG 12/08/02, DAVIS to LAD, SVG to OBtuse marginal & to PDA; Old myocardial infarction (Chronic) Angina pectoris (Chronic) Diabetes mellitus (Chronic) Paroxysmal a-fib (Chronic) Ventricular tachycardia (paroxysmal) (Chronic) HLD (hyperlipidemia) (Chronic) Hypothyroidism (Chronic) Paroxysmal SVT (supraventricular tachycardia) (Chronic) Medical History: Medical History (Last Reviewed 11/20/18 @ 06:28 by Jean Regalado MD) Essential hypertension (Chronic) I10 Chronic systolic congestive heart failure (Chronic) I50.22 Nonrheumatic mitral valve regurgitation (Chronic) I34.0 Nonrheumatic tricuspid (valve) insufficiency (Chronic) I36.1 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) Z95.810 ICD Implant November 2002; 01/20/10 ICD generator replacement; Atherosclerotic heart disease of [place] coronary artery without angina pectoris (Chronic) I25.10 PTCA/stent to mid RCA in November 2001; CABG in November 2002 with DAVIS to LAD, SVG to obtuse marginal, and SVG to PDA; Ischemic cardiomyopathy (Chronic) I25.5 Ventricular tachyarrhythmia (Chronic) I47.2 Palpitations (Chronic) R00.2 Old myocardial infarction (Chronic) I25.2 Angina pectoris (Chronic) I20.9 Monomorphic ventricular tachycardia (Acute) I47.2 Diabetes mellitus (Chronic) E11.9 Paroxysmal a-fib (Chronic) I48.0 Pre-syncope (Acute) Syncope (Acute) R55 Shortness of breath (Acute) R06.02 Ventricular tachycardia (paroxysmal) (Chronic) I47.2 HLD (hyperlipidemia) (Chronic) E78.5 Hypothyroidism (Chronic) E03.9 Paroxysmal SVT (supraventricular tachycardia) (Chronic) I47.1 Body mass index (bmi) 26.0-26.9, adult Z68.26 Breast cancer C50.919 COPD (chronic obstructive pulmonary disease) J44.9 Acute IL, inferoposterior wall, subsequent episode of care (Inactive) I21.19 Debility (Inactive) R53.81 HTN (hypertension) (Inactive) I10 Right leg pain (Inactive) M79.604 Shortness of breath R06.02 Allergies No Known Allergies Allergy (Verified 11/19/18 17:19) Home Medications: Ambulatory Orders Medication Instructions Recorded Aspirin 325 mg PO DAILY@0800 03/24/16 Duloxetine Hcl [Cymbalta] 60 mg PO DAILY 03/24/16 Isosorbide Mononitrate [Imdur] 120 mg PO DAILY 03/24/16 Levothyroxine [Synthroid] 75 mcg PO DAILY 03/24/16 Omeprazole [Prilosec] 20 mg PO DAILY 03/24/16 Vit A/Vit C/Vit E/Zinc/Copper 1 ea PO QHS 03/24/16 [Preservision Areds Softgel] Cholecalciferol (Vitamin D3) 50,000 unit PO MO 09/18/16 [Vitamin D3] Clopidogrel Bisulfate [Plavix] 75 mg PO DAILY 09/18/16 bumetanide 0.5 mg tablet 0.5 mg PO DAILY 12/03/17 exemestane 25 mg tablet 25 mg PO DAILY 12/03/17 pravastatin 40 mg tablet 40 mg PO QHS 12/03/17 pregabalin 100 mg capsule 100 mg PO QHS 12/03/17 ALPRAZolam [Xanax] 0.25 mg PO QHS 10/11/18 Albuterol IH (ProAir) [Proair Hfa] 2 puff INHALATION TID PRN 10/11/18 Donepezil HCl [Aricept] 5 mg PO DAILY 10/11/18 Ferrous Sulfate 325 mg PO BIDCM 10/11/18 Gabapentin [Neurontin] 100 mg PO QHS 10/11/18 Loratadine [Claritin] 10 mg PO QHS 10/11/18 Multivitamin with Iron [Tab-A-Kathy 1 tab PO BID 10/11/18 with Iron] Palbociclib [Ibrance] 125 mg PO DAILY 10/11/18 Potassium Chloride [Klor-Con] 40 meq PO DAILY 10/11/18 Propylene Glycol [Systane Balance] 1 drop RIGHT EYE BID 10/11/18 traZODone [Desyrel] 50 mg PO QHS 10/11/18 Pentoxifylline [Trental] 400 mg PO BID tablet 10/15/18 Amlodipine [Norvasc] 5 mg PO DAILY 11/19/18 Melatonin 10 mg PO QHS 11/19/18 Metoprolol Tartrate 37.5 mg PO BID 11/19/18 fenofibrate 160 mg tablet 160 mg PO DAILY 11/19/18 Surgical History: Surgical History (Last Reviewed 11/20/18 @ 04:09 by Jean Regalado MD) Presence of stent in coronary artery (Chronic) Onset Date: ~11/30/01 Z95.5 PTCA/stent to mid RCA 11/30/01; Aortocoronary bypass status (Chronic) Onset Date: ~12/08/02 Z95.1 CABG 12/08/02, DAVIS to LAD, SVG to OBtuse marginal & to PDA; Postsurgical percutaneous transluminal coronary angioplasty (PTCA) status Z98.61 PTCA/stent to mid RCA 11/30/01; S/P implantation of automatic cardioverter/defibrillator (AICD) Z95.810 ICD Implant November 2002; 01/20/10 ICD generator replacement; Surgical History: coronary bypass surgery, mastectomy, pacemaker implantation Psychiatric History: No pertinent psych hx 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 Denies: Chills, Fever, Weight Change HEENT: Denies: Head Aches, Sinus Congestion, Sinus Drainage Cardiovascular: Denies: Chest Pain, Palpitations Respiratory: Denies: Cough, Shortness of breath at rest, Sputum production Gastrointestinal: Denies: Abdominal Pain, Nausea, Vomiting Genitourinary: Denies: Dysuria Musculoskeletal: Denies: Joint Pain, Joint Tenderness Skin: Denies: Rash, Wounds Neurological: Denies: Numbness, Tingling, Focal weakness Psychiatric: Denies: Anxiety, Depression, Homicidal Ideations, Suicidal Ideations Hematologic/ Lymphatic: Denies: Easy Bruising, Easy Bleeding VTE Information - Inpt Only VTE Present on Admission: No VTE Mechan Device Prophylaxis: None VTE Pharm Prophylaxis ordered?: No Reason prophylaxis not ordered:: Treatment Not Indicated - Patient placed on therapeutic Lovenox for A. fib Patient Problems: Active and Suspected Problems (Last Reviewed 11/20/18 @ 06:28 by Jean Regalado MD) Atrial fibrillation with RVR (Acute) - Physical Exam General: Alert, Oriented x3, Cooperative HEENT: Atraumatic, PERRLA, EOMI, Normocephalic Neck: Supple, No JVD, Negative Carotid Bruits Lungs: Clear to auscultation, Normal air movement, - - left masectomy Cardiovascular: No murmurs, Irregular Rate, Tachycardic Abdomen: Bowel Sounds Present, Soft, Non Tender Extremities: No edema, Capillary Refill Less than 3 Seconds Skin: No rashes, No breakdown Musculoskeletal: No Tenderness to Palpation of Joints or Extremities Neurological: Neuro grossly intact Psych/Mental Status: Normal Affect, Appropriate Vital Signs Temp Pulse Resp BP Pulse Ox 98.3 F 108 H 18 106/60 98 11/19/18 18:26 11/19/18 21:44 11/19/18 21:44 11/19/18 21:44 11/19/18 21:44 Oxygen Delivery Method Room Air Weight: 61.1 kg Body Mass Index (BMI) 23.1 Finger Stick Blood Glucose 126 Laboratory Tests Past 24 Hrs 11/19/18 11/19/18 11/19/18 17:31 17:31 18:27 WBC 5.6 RBC 3.00 L Hgb 11.4 L Hct 32.5 L MCV 108.3 H MCH 38.0 H MCHC 35.1 RDW 15.7 H RDW Differential 61.1 H Plt Count 118 L MPV 12.5 H Immature Gran % (Auto) 0.200 Neut % (Auto) 31.4 L Lymph % (Auto) 54.4 H Ogle % (Auto) 12.2 H Eos % (Auto) 0.7 Baso % (Auto) 1.1 H Absolute Neuts (auto) 1.8 L Absolute Lymphs (auto) 3.07 Total Counted Not Reportable Sodium 140 Potassium 3.0 L Chloride 105 Carbon Dioxide 29.0 Anion Gap 6 BUN 14 Creatinine 0.93 Estim Creat Clear Calc 43.75 Est GFR (MDRD) Af Amer 75 Est GFR (MDRD) Non-Af 62 BUN/Creatinine Ratio 15.1 Glucose 106 Calcium 9.3 Troponin I 0.042 Urine Color Yellow Urine Clarity Clear Urine pH 5.0 Ur Specific [place] 1.015 Urine Protein Negative Urine Glucose (UA) Normal Urine Ketones Negative Urine Occult Blood Negative Urine Nitrite Negative Urine Bilirubin Negative Urine Urobilinogen 1 H Ur Leukocyte Esterase Negative Urine RBC 0 SEEN Urine WBC 0 SEEN Ur Squamous Epith Cells 0 SEEN Urine Bacteria 0 SEEN Hyaline Casts 0-5 SEEN Urine Mucus 0 SEEN Assessment/Plan All Active Problems (Last Reviewed 11/20/18 @ 06:28 by Jean Regalado MD) Atrial fibrillation with RVR (Acute) Hypokalemia (Acute) Chest pain (Acute) Monomorphic ventricular tachycardia (Acute) Pre-syncope (Acute) Syncope (Acute) Shortness of breath (Acute) The patient is a 78 year old F with a significant history of metastatic breast cancer status post left mastectomy and on chemotherapy;. Status post CABG; paroxysmal A. fib who presented to the emergency department because of 2-3 days history of persistent fatigue and found to be in A. fib with RVR which was not controlled by Cardizem bolus x2 and was subsequently started on the Cardizem drip. A. fib with RVR Admitted to PCU on telemetry Serial cardiac enzymes Obtain echo Lovenox 1 mg per kilogram subcutaneous every 12 hours For rate control: Continue Cardizem drip. Titrate to keep heart rate between 80-100. Hold for systolic blood pressure less than 100. magnesium level ordered Review of labs shows potassium of 3.0. Chest x-ray Hypokalemia Potassium supplementation ordered. Continue home potassium supplement Trend BMP. CAD with CABG On home aspirin 325 mg. Because she has been started on therapeutic Lovenox will decrease her aspirin dose to 81 mg daily for now. Plavix continued Imdur continued Cardiomyopathy Bumex continued. HTN On presentation her blood pressure was within goal Imdur continued Cardizem drip for Afib Trend blood pressure and adjust blood pressure medication Metastatic breast cancer Ibrance continued DVT prophylaxis Not indicated in the setting of statin therapy Lovenox. Code Visit OBSV E&M: [id number] Initial observation care L3
--- NOTE | 2018-11-19 22:21 | ECHOD_ITS ---
Reason For Study: A. Fib/flutter Procedure This was a 2D Doppler, Color Flow transthoracic echocardiogram. Exam performed portable in patient room. Left Ventricle Mildly dilated left ventricle. The estimated ejection fraction is 40-45 %. Stage 2 diastolic dysfunction. There are regional wall motion abnormalities as specified. Right Ventricle Normal size and thickness. ICD or pacer leads identified within the right ventricle. Normal systolic function. Atria The left atrium is moderately enlarged. Normal right atrium. Normal atrial septum. Mitral Valve Mild diffuse mitral valve thickening. Ruptured chordae tendineae of mitral valve. Mild (1+) eccentric mitral valve insufficiency. Tricuspid Valve Normal tricuspid valve. Mild (1+) tricuspid valve insufficiency. Right ventricular systolic pressure estimated to be 36 mmHg. Aortic Valve Trisinus/trileaflet aortic valve. Mild focal aortic valve thickening. Pulmonic Valve Normal pulmonic valve. Great Vessels Normal aortic root. Mild atherosclerosis of the aortic arch. Normal inferior vena cava. Inferior vena cava collapse with sniff. Pericardium/Pleural No pericardial effusion. MMode/2D Measurements & Calculations LVIDd: 5.3 cm IVSd: 0.90 cm Ao root diam: 3.3 cm LVIDs: 4.6 cm LVPWd: 0.63 cm RVDd: 3.0 cm FS: 12.7 % LAV(MOD-bp): 96.2 ml EDV(MOD-sp4): 84.9 ml EDV(MOD-sp2): 88.9 ml LAV(MOD-bp) Indexed: 58.5 ml/m2 ESV(MOD-sp4): 56.1 ml EF(MOD-sp2): 32.7 % LAV(MOD-sp2): 98.5 ml EF(MOD-sp4): 33.9 % LAV(MOD-sp4): 89.0 ml SV(MOD-sp4): 28.8 ml SV(MOD-sp2): 29.1 ml LA A4 area: 26.0 cm2 LA dimension(2D): 4.7 cm RA A4 area: 15.8 cm2 Doppler Measurements & Calculations MV E max suman: 74.8 cm/sec Lat Peak E' Suman: 9.4 cm/sec Med Peak E' Suman: 5.0 cm/sec MV A max suman: 60.8 cm/sec E/E' lat: 7.9 E/E' med: 14.8 MV E/A: 1.2 Ao V2 max: 157.8 cm/sec LV V1 max: 88.4 cm/sec PA V2 max: 84.4 cm/sec Ao max P.0 mmHg LV V1 max P.1 mmHg TR max suman: 269.1 cm/sec TR max P.0 mmHg Interpretation Summary Mildly dilated left ventricle. The estimated ejection fraction is 40-45 %. There are regional wall motion abnormalities as specified. Stage 2 diastolic dysfunction. The left atrium is moderately enlarged. Mild (1+) eccentric mitral valve insufficiency. Mild (1+) tricuspid valve insufficiency. Right ventricular systolic pressure estimated to be 36 mmHg. Compared to echo report dated 09/11/2018, no appreciable changes noted. Ordering Physician: Jean Regalado Referring Physician: Stephany Murillo Performed By: Nita Ambrose RDCS
[2018-11-19 23:07] LABS: Magnesium 1.4 mg/dL (1.6-2.6); Thyroid Stim Hormone (TSH) 1.76 uIU/mL (0.358-3.74)
[2018-11-19] MEDS: Enoxaparin 60 MG/0.6 ML Syringe SC (23:43)
[2018-11-19] MEDS: Potassium Chloride 10mEq/100mL 10 MEQ/100 ML IV.SOLN. 100 MEQ IV BOLUS (23:43)
[2018-11-19] MEDS: Pregabalin 50 MG Capsule 100 MG PO (23:43)
[2018-11-19] MEDS: traZODone 50 MG Tablet PO (23:44)
[2018-11-19] MEDS: Pravastatin 40 MG Tablet PO (23:44)
[2018-11-19] MEDS: Metoprolol Tartrate 25 MG Tablet 37.5 MG PO (23:44)
[2018-11-20] VITALS (20 sets, daily range): BP systolic 105–135; BP diastolic 45–86; PULSE 66–95; RESP 13–22; TEMP 36.6–36.9; O2SAT 93–100
[2018-11-20] MEDS: Potassium Chloride 10mEq/100mL 10 MEQ/100 ML IV.SOLN. 100 MEQ IV BOLUS ×3 (01:03→03:23)
--- NOTE | 2018-11-20 01:34 | EKG12_ITS ---
Test Reason : FATIGUE Blood Pressure : / mmHG Vent. Rate : 101 BPM Atrial Rate : 101 BPM P-R Int : 152 ms QRS Dur : 104 ms QT Int : 386 ms P-R-T Axes : 000 054 261 degrees QTc Int : 500 ms Sinus tachycardia with frequent and consecutive Premature ventricular complexes ST & T wave abnormality, consider inferolateral ischemia Abnormal ECG Confirmed by RADHA BOB ([id number]), editor house organ NOEMI ROJO ([id number]) on 11/22/2018 11:20:41 AM Referred By: Jean Regalado Confirmed By:RADHA BOB
[2018-11-20] MEDS: Magnesium Sulfate 4gm/100mL 4 GM/100 ML IV.SOLN. IV (02:21)
[2018-11-20] MEDS: Levothyroxine 75 MCG Tablet PO (06:15)
[2018-11-20 06:38] LABS: Anion Gap 6 (5-15); BUN 11 mg/dL (7-18); BUN/Creat Ratio 13.9 RATIO (10-20); Calcium,Total 8.6 mg/dL (8.5-10.1); Chloride 107 mmol/L (98-107); Creatinine, Serum 0.79 mg/dL (0.55-1.02); EST Glomerular Filtration Rate 75 mL/min (>60); Est Glom Filt Rate - Afr Amer 91 mL/min (>60); Estimated Creatinine Clearance 40.68 ml/min; Glucose 110 mg/dL (74-106); Potassium 4.2 mmol/L (3.5-5.1); Sodium Level 140 mmol/L (136-145)
[2018-11-20] MEDS: Pentoxifylline 400 MG Tablet PO ×2 (09:40→22:44)
[2018-11-20] MEDS: Donepezil HCl 5 MG Tablet PO (09:40)
[2018-11-20] MEDS: Metoprolol Tartrate 25 MG Tablet 37.5 MG PO ×2 (09:40→22:43)
[2018-11-20] MEDS: Fenofibrate 145 MG Tablet PO (09:40)
[2018-11-20] MEDS: Pantoprazole Sodium 20 MG Tablet PO (09:40)
[2018-11-20] MEDS: Ferrous Sulfate 325 MG Tablet PO ×2 (09:40→16:55)
[2018-11-20] MEDS: Bumetanide 0.5 MG Tablet PO (09:40)
[2018-11-20] MEDS: Clopidogrel Bisulfate 75 MG Tablet PO (09:40)
[2018-11-20] MEDS: DULoxetine Hcl 60 MG Capsule PO (09:40)
[2018-11-20] MEDS: amLODIPine 5 MG Tablet PO (09:40)
[2018-11-20] MEDS: Multivitamins,Ther W-Minerals Tablet 1 TABLET PO (09:40)
[2018-11-20] MEDS: Aspirin E.C. 81 MG Tablet PO (09:40)
[2018-11-20] MEDS: Enoxaparin 60 MG/0.6 ML Syringe SC (09:41)
--- NOTE | 2018-11-20 10:01 | CASEMGMT ---
TOYIN spoke with patient and she confirmed she is from [facility]. She said her plan is to return there at discharge. TOYIN following for d/c. Sadaf GRANT MSW
--- NOTE | 2018-11-20 12:06 | CASEMGMT ---
Patient has a Healthcare POA and Healthcare LW on file at [facility]. Sadaf GRANT REGISTERED NURSE RENAL
--- NOTE | 2018-11-20 12:39 | PCM.PN.HOSP ---
Patient Problems: Active and Suspected Problems (Last Reviewed 11/20/18 @ 06:28 by Jean Regalado MD) Atrial fibrillation with RVR (Acute) Subjective: Patient seen and examined. She was admitted with a complaint of persistent fatigue or found to be in A. fib with RVR on admission with heart rate in the 140s. He was started on Cardizem drip and subsequently converted to sinus rhythm and rate came down 60s and 70s. Patient has no complaints this morning and feels well. Review of systems otherwise negative. She does not have any palpitations or dizziness or light. She does have a history of paroxysmal A. fib but has not been anticoagulated. She is on aspirin and Plavix on account of CAD. . Vitals/I&O's: Vital Signs Temp Pulse Resp BP Pulse Ox 97.9 F 75 16 124/45 H 98 11/20/18 09:52 11/20/18 09:52 11/20/18 09:52 11/20/18 09:52 11/20/18 09:52 Oxygen Flow Rate (L/min) 2 Oxygen Delivery Method Room Air Weight: 133 lb 2.547 oz Body Mass Index (BMI) 22.8 Finger Stick Blood Glucose 126 Intake and Output for Last 24 Hours 11/18/18 11/19/18 11/20/18 23:59 23:59 23:59 Intake Total 640 / 640 Balance 640 / 640 General: Alert, Oriented x3, Cooperative, No apparent distress HEENT: Atraumatic, PERRLA, EOMI, Normocephalic Oral: Moist Mucosa Neck: Supple, No JVD, Negative Carotid Bruits Lungs: Clear to auscultation, Normal air movement, No rhonchi, No wheeze, No rales Cardiovascular: Regular rate, Regular Rhythm, Normal S1, Normal S2, No murmurs Abdomen: Bowel Sounds Present, Soft, Non Tender, Non-Distended, No Hepato-splenomegaly Extremities: No clubbing, No cyanosis, No edema, Capillary Refill Less than 3 Seconds Skin: No rashes, No breakdown Musculoskeletal: No Tenderness to Palpation of Joints or Extremities Lymphatic: No Cervical, Supraclavicular, or Inguinal Adenopathy Neurological: Cranial nerves II-XII grossly intact, Neuro grossly intact, Motor Exam 5/5 strength throughout Psych/Mental Status: Normal Affect, Appropriate, Alert and oriented to time, place, person, mood and affect Laboratory Results 11/19/18 17:31: WBC 5.6, RBC 3.00 L, Hgb 11.4 L, Hct 32.5 L, MCV 108.3 H, MCH 38.0 H, MCHC 35.1, RDW 15.7 H, RDW Differential 61.1 H, Plt Count 118 L, MPV 12.5 H, Immature Gran % (Auto) 0.200, Neut % (Auto) 31.4 L, Lymph % (Auto) 54.4 H, [place] % (Auto) 12.2 H, Eos % (Auto) 0.7, Baso % (Auto) 1.1 H, Absolute Neuts (auto) 1.8 L, Absolute Lymphs (auto) 3.07, Total Counted Not Reportable 11/19/18 17:31: Sodium 140, Potassium 3.0 L, Chloride 105, Carbon Dioxide 29.0, Anion Gap 6, BUN 14, Creatinine 0.93, Estim Creat Clear Calc 43.75, Est GFR (MDRD) Af Amer 75, Est GFR (MDRD) Non-Af 62, BUN/Creatinine Ratio 15.1, Glucose 106, Calcium 9.3, Troponin I 0.042 11/19/18 17:31: Magnesium 1.4 L, TSH 1.76 11/19/18 18:27: Urine Color Yellow, Urine Clarity Clear, Urine pH 5.0, Ur Specific [place] 1.015, Urine Protein Negative, Urine Glucose (UA) Normal, Urine Ketones Negative, Urine Occult Blood Negative, Urine Nitrite Negative, Urine Bilirubin Negative, Urine Urobilinogen 1 H, Ur Leukocyte Esterase Negative, Urine RBC 0 SEEN, Urine WBC 0 SEEN, Ur Squamous Epith Cells 0 SEEN, Urine Bacteria 0 SEEN, Hyaline Casts 0-5 SEEN, Urine Mucus 0 SEEN 11/20/18 05:40: Sodium 140, Potassium 4.2, Chloride 107, Carbon Dioxide 27.0, Anion Gap 6, BUN 11, Creatinine 0.79, Estim Creat Clear Calc 40.68, Est GFR (MDRD) Af Amer 91, Est GFR (MDRD) Non-Af 75, BUN/Creatinine Ratio 13.9, Glucose 110 H, Calcium 8.6 Diagnostic Data Chest X-Ray 11/19/18 17:39 IMPRESSION: 1. Change in pacemaker when compared to prior study. The generator now lies on the right. 2. No acute cardiopulmonary disease or other major interval change. Electronically Signed: Neal Falcon DO at 18:16 EDT Tel [phone], Service support , Current Medications Acetaminophen (Tylenol) 650 mg PO Q6H PRN PRN PRN Reason: PAIN Alprazolam (Xanax) 0.25 mg PO QHS [facility] Amlodipine Besylate (Norvasc) 5 mg PO DAILY [facility] Last Admin: 11/20/18 09:40 Dose: 5 mg Aspirin (Ecotrin) 81 mg PO DAILY@0800 [facility] Last Admin: 11/20/18 09:40 Dose: 81 mg Bisacodyl (Dulcolax) 5 mg PO DAILY PRN PRN PRN Reason: Constipation Bumetanide (Bumex) 0.5 mg PO DAILY [facility] Last Admin: 11/20/18 09:40 Dose: 0.5 mg Clopidogrel Bisulfate (Plavix) 75 mg PO DAILY [facility] Last Admin: 11/20/18 09:40 Dose: 75 mg Donepezil HCl (Aricept) 5 mg PO DAILY [facility] Last Admin: 11/20/18 09:40 Dose: 5 mg Duloxetine HCl (Cymbalta) 60 mg PO DAILY [facility] Last Admin: 11/20/18 09:40 Dose: 60 mg Enoxaparin Sodium (Lovenox) 60 mg 1 mg/kg (60 mg) SC Q12 [facility] Last Admin: 11/20/18 09:41 Dose: 60 mg Ergocalciferol (Vitamin D) 50,000 unit PO Mo@1000 [facility] Fenofibrate (Tricor) 145 mg PO DAILY [facility] Last Admin: 11/20/18 09:40 Dose: 145 mg Ferrous Sulfate (Ferrous Sulfate) 325 mg PO BIDCM [facility] Last Admin: 11/20/18 09:40 Dose: 325 mg Gabapentin (Neurontin) 100 mg PO QHS [facility] Isosorbide Mononitrate (Imdur) 120 mg PO DAILY [facility] Last Admin: 11/20/18 09:40 Dose: 120 mg Levothyroxine Sodium (Synthroid) 75 mcg PO DAILY@0600 [facility] Last Admin: 11/20/18 06:15 Dose: 75 mcg Loratadine (Claritin) 10 mg PO QHS [facility] Magnesium Hydroxide (Milk Of Magnesia) 30 ml PO DAILY PRN PRN Reason: Constipation Melatonin (Melatonin) 10 mg PO QHS [facility] Metoprolol Tartrate (Lopressor (Beta Rico)) 37.5 mg PO BID [facility] Last Admin: 11/20/18 09:40 Dose: 37.5 mg Multivitamins/Minerals (Multivitamin With Minerals) 1 tablet PO DAILY@0800 [facility] Last Admin: 11/20/18 09:40 Dose: 1 tablet Nutritional Formula (Lactose Free) (Ensure Enlive) 120 ml PO 4X/DAY [facility] Last Admin: 11/20/18 09:43 Dose: Not Given Ondansetron HCl (Zofran) 4 mg IV Q8H PRN PRN PRN Reason: Nausea Pantoprazole Sodium (Protonix) 20 mg PO DAILY [facility] Last Admin: 11/20/18 09:40 Dose: 20 mg Pentoxifylline (Trental) 400 mg PO BID [facility] Last Admin: 11/20/18 09:40 Dose: 400 mg Potassium Chloride (K-Dur) 40 meq PO DAILY [facility] Last Admin: 11/20/18 09:40 Dose: 40 meq Pravastatin Sodium (Pravachol) 40 mg PO QHS [facility] Last Admin: 11/19/18 23:44 Dose: 40 mg Pregabalin (Lyrica) 100 mg PO QHS [facility] Sodium Chloride () 5 - 15 ml IV UD PRN PRN Reason: SALINE FLUSH Trazodone HCl (Desyrel) 50 mg PO QHS [facility] Last Admin: 11/19/18 23:44 Dose: 50 mg Medical Necessity - Tobacco Use Smoking Status: Former smoker Assessment/Plan All Active Problems (Last Reviewed 11/20/18 @ 06:28 by Jean Regalado MD) Atrial fibrillation with RVR (Acute) Hypokalemia (Acute) Chest pain (Acute) Monomorphic ventricular tachycardia (Acute) Pre-syncope (Acute) Syncope (Acute) Shortness of breath (Acute) 1. Afib with RVR now rate and rhythm controlled; off cardizem drip does have a history of paroxysmal Afib. 2D echo is pending CHADVASC score is 5, indicating high risk of thromboembolism currently on aspirin and plavix; will discuss with tack maker about stopping one of these due to the risk of bleeding.l per discussion with Dr Rojas, her primary tack maker, will stop plavix, continue aspirin and start on PO eliquis 2.5mg bid. on metoprolol 37.5mg bid. Per cardiology, she used to be on amiodarone, but this was discontinued. 2. HYpokalemia: K was 3 on admission, resolved wtih replacement. Now 4.2. Will monitor 3. Hypomagnesemia: Mg was 1.4 on admission. was replaced. Will monitor 4. CAD s/p CABG: on aspirin 325mg daily. Will reduce to aspirin 81m daily. Plavix dc'd as under 1. on Imdur 5. History of cardiomyopathy: on bumex. 6. Hypertension: On metoprolol 7. Hypothyroidism: On Synthroid. TSH was WNL at 1.76 8. Metastatic breast cancer: ICD recently had to be switched from the left to the right to allow for radiation of the left side. On Ibrance. 9. Depression: On trazodone DVT prophylaxis: started on eliquis 2.5mg bid. Code Visit OBSV E&M: 79113 Subsequent observation care L3
--- NOTE | 2018-11-20 12:43 | PN_ITS ---
Patient Problems: Active and Suspected Problems (Last Reviewed 11/20/18 @ 06:28 by Jean Regalado MD) Atrial fibrillation with RVR (Acute) Subjective: Patient seen and examined. She was admitted with a complaint of persistent fatigue or found to be in A. fib with RVR on admission with heart rate in the 140s. He was started on Cardizem drip and subsequently converted to sinus rhythm and rate came down 60s and 70s. Patient has no complaints this morning and feels well. Review of systems otherwise negative. She does not have any palpitations or dizziness or light. She does have a history of paroxysmal A. fib but has not been anticoagulated. She is on aspirin and Plavix on account of CAD. . Vitals/I&O's: Vital Signs Temp Pulse Resp BP Pulse Ox 97.9 F 75 16 124/45 H 98 11/20/18 09:52 11/20/18 09:52 11/20/18 09:52 11/20/18 09:52 11/20/18 09:52 Oxygen Flow Rate (L/min) 2 Oxygen Delivery Method Room Air Weight: 133 lb 2.547 oz Body Mass Index (BMI) 22.8 Finger Stick Blood Glucose 126 Intake and Output for Last 24 Hours 11/18/18 11/19/18 11/20/18 23:59 23:59 23:59 Intake Total 640 / 640 Balance 640 / 640 General: Alert, Oriented x3, Cooperative, No apparent distress HEENT: Atraumatic, PERRLA, EOMI, Normocephalic Oral: Moist Mucosa Neck: Supple, No JVD, Negative Carotid Bruits Lungs: Clear to auscultation, Normal air movement, No rhonchi, No wheeze, No rales Cardiovascular: Regular rate, Regular Rhythm, Normal S1, Normal S2, No murmurs Abdomen: Bowel Sounds Present, Soft, Non Tender, Non-Distended, No Hepato- splenomegaly Extremities: No clubbing, No cyanosis, No edema, Capillary Refill Less than 3 Seconds Skin: No rashes, No breakdown Musculoskeletal: No Tenderness to Palpation of Joints or Extremities Lymphatic: No Cervical, Supraclavicular, or Inguinal Adenopathy Neurological: Cranial nerves II-XII grossly intact, Neuro grossly intact, Motor Exam 5/5 strength throughout Psych/Mental Status: Normal Affect, Appropriate, Alert and oriented to time, place, person, mood and affect Laboratory Results 11/19/18 17:31: WBC 5.6, RBC 3.00 L, Hgb 11.4 L, Hct 32.5 L, MCV 108.3 H, MCH 38.0 H, MCHC 35.1, RDW 15.7 H, RDW Differential 61.1 H, Plt Count 118 L, MPV 12.5 H, Immature Gran % (Auto) 0.200, Neut % (Auto) 31.4 L, Lymph % (Auto) 54.4 H, [place] % (Auto) 12.2 H, Eos % (Auto) 0.7, Baso % (Auto) 1.1 H, Absolute Neuts (auto) 1.8 L, Absolute Lymphs (auto) 3.07, Total Counted Not Reportable 11/19/18 17:31: Sodium 140, Potassium 3.0 L, Chloride 105, Carbon Dioxide 29.0, Anion Gap 6, BUN 14, Creatinine 0.93, Estim Creat Clear Calc 43.75, Est GFR (MDRD) Af Amer 75, Est GFR (MDRD) Non-Af 62, BUN/Creatinine Ratio 15.1, Glucose 106, Calcium 9.3, Troponin I 0.042 11/19/18 17:31: Magnesium 1.4 L, TSH 1.76 11/19/18 18:27: Urine Color Yellow, Urine Clarity Clear, Urine pH 5.0, Ur S pecific [place] 1.015, Urine Protein Negative, Urine Glucose (UA) Normal, Urine Ketones Negative, Urine Occult Blood Negative, Urine Nitrite Negative, Urine Bilirubin Negative, Urine Urobilinogen 1 H, Ur Leukocyte Esterase Negative, Urine RBC 0 SEEN, Urine WBC 0 SEEN, Ur Squamous Epith Cells 0 SEEN, Urine Bacteria 0 SEEN, Hyaline Casts 0-5 SEEN, Urine Mucus 0 SEEN 11/20/18 05:40: Sodium 140, Potassium 4.2, Chloride 107, Carbon Dioxide 27.0, Anion Gap 6, BUN 11, Creatinine 0.79, Estim Creat Clear Calc 40.68, Est GFR (MDRD) Af Amer 91, Est GFR (MDRD) Non-Af 75, BUN/Creatinine Ratio 13.9, Glucose 110 H, Calcium 8.6 Diagnostic Data Chest X-Ray 11/19/18 17:39 IMPRESSION: 1. Change in pacemaker when compared to prior study. The generator now lies on the right. 2. No acute cardiopulmonary disease or other major interval change. Electronically Signed: Neal Falcon DO at 18:16 EDT Tel [phone], Service support , Current Medications Acetaminophen (Tylenol) 650 mg PO Q6H PRN PRN PRN Reason: PAIN Alprazolam (Xanax) 0.25 mg PO QHS [facility] Amlodipine Besylate (Norvasc) 5 mg PO DAILY [facility] Last Admin: 11/20/18 09:40 Dose: 5 mg Aspirin (Ecotrin) 81 mg PO DAILY@0800 [facility] Last Admin: 11/20/18 09:40 Dose: 81 mg Bisacodyl (Dulcolax) 5 mg PO DAILY PRN PRN PRN Reason: Constipation Bumetanide (Bumex) 0.5 mg PO DAILY [facility] Last Admin: 11/20/18 09:40 Dose: 0.5 mg Clopidogrel Bisulfate (Plavix) 75 mg PO DAILY [facility] Last Admin: 11/20/18 09:40 Dose: 75 mg Donepezil HCl (Aricept) 5 mg PO DAILY [facility] Last Admin: 11/20/18 09:40 Dose: 5 mg Duloxetine HCl (Cymbalta) 60 mg PO DAILY [facility] Last Admin: 11/20/18 09:40 Dose: 60 mg Enoxaparin Sodium (Lovenox) 60 mg 1 mg/kg (60 mg) SC Q12 [facility] Last Admin: 11/20/18 09:41 Dose: 60 mg Ergocalciferol (Vitamin D) 50,000 unit PO Mo@1000 [facility] Fenofibrate (Tricor) 145 mg PO DAILY [facility] Last Admin: 11/20/18 09:40 Dose: 145 mg Ferrous Sulfate (Ferrous Sulfate) 325 mg PO BIDCM [facility] Last Admin: 11/20/18 09:40 Dose: 325 mg Gabapentin (Neurontin) 100 mg PO QHS [facility] Isosorbide Mononitrate (Imdur) 120 mg PO DAILY [facility] Last Admin: 11/20/18 09:40 Dose: 120 mg Levothyroxine Sodium (Synthroid) 75 mcg PO DAILY@0600 [facility] Last Admin: 11/20/18 06:15 Dose: 75 mcg Loratadine (Claritin) 10 mg PO QHS [facility] Magnesium Hydroxide (Milk Of Magnesia) 30 ml PO DAILY PRN PRN Reason: Constipation Melatonin (Melatonin) 10 mg PO QHS [facility] Metoprolol Tartrate (Lopressor (Beta Rico)) 37.5 mg PO BID [facility] Last Admin: 11/20/18 09:40 Dose: 37.5 mg Multivitamins/Minerals (Multivitamin With Minerals) 1 tablet PO DAILY@0800 [facility] Last Admin: 11/20/18 09:40 Dose: 1 tablet Nutritional Formula (Lactose Free) (Ensure Enlive) 120 ml PO 4X/DAY [facility] Last Admin: 11/20/18 09:43 Dose: Not Given Ondansetron HCl (Zofran) 4 mg IV Q8H PRN PRN PRN Reason: Nausea Pantoprazole Sodium (Protonix) 20 mg PO DAILY [facility] Last Admin: 11/20/18 09:40 Dose: 20 mg Pentoxifylline (Trental) 400 mg PO BID [facility] Last Admin: 11/20/18 09:40 Dose: 400 mg Potassium Chloride (K-Dur) 40 meq PO DAILY [facility] Last Admin: 11/20/18 09:40 Dose: 40 meq Pravastatin Sodium (Pravachol) 40 mg PO QHS [facility] Last Admin: 11/19/18 23:44 Dose: 40 mg Pregabalin (Lyrica) 100 mg PO QHS [facility] Sodium Chloride () 5 - 15 ml IV UD PRN PRN Reason: SALINE FLUSH Trazodone HCl (Desyrel) 50 mg PO QHS [facility] Last Admin: 11/19/18 23:44 Dose: 50 mg Medical Necessity - Tobacco Use Smoking Status: Former smoker Assessment/Plan All Active Problems (Last Reviewed 11/20/18 @ 06:28 by Jean Regalado MD) Atrial fibrillation with RVR (Acute) Hypokalemia (Acute) Chest pain (Acute) Monomorphic ventricular tachycardia (Acute) Pre-syncope (Acute) Syncope (Acute) Shortness of breath (Acute) 1. Afib with RVR * now rate and rhythm controlled; off cardizem drip * does have a history of paroxysmal Afib. * 2D echo is pending * CHADVASC score is 5, indicating high risk of thromboembolism * currently on aspirin and plavix; will discuss with celery stripper about stopping one of these due to the risk of bleeding.bhavna * per discussion with Dr Rojas, her primary celery stripper, will stop plavix, continue aspirin and start on PO eliquis 2.5mg bid. * on metoprolol 37.5mg bid. Per cardiology, she used to be on amiodarone, but this was discontinued. * 2. HYpokalemia: K was 3 on admission, resolved wtih replacement. Now 4.2. Will monitor 3. Hypomagnesemia: Mg was 1.4 on admission. was replaced. Will monitor 4. CAD s/p CABG: on aspirin 325mg daily. Will reduce to aspirin 81m daily. Plavix dc'd as under 1. on Imdur 5. History of cardiomyopathy: on bumex. 6. Hypertension: On metoprolol 7. Hypothyroidism: On Synthroid. TSH was WNL at 1.76 8. Metastatic breast cancer: ICD recently had to be switched from the left to the right to allow for radiation of the left side. On Ibrance. 9. Depression: On trazodone DVT prophylaxis: started on eliquis 2.5mg bid. Code Visit OBSV E&M: 15303 Subsequent observation care L3
--- NOTE | 2018-11-20 15:22 | CASEMGMT ---
This RN CM to room with CEJA form at this time, explanation done-pt voices understanding, and signs CEJA form at this time. Original to chart and copy to pt at this time. Pt voices no further questions/concerns/needs at this time. Pt aware that this RN CM will check Eliquis also before discharge tomorrow, voices understanding. [place] RN CM
[2018-11-20] MEDS: Pregabalin 50 MG Capsule 100 MG PO (22:38)
[2018-11-20] MEDS: ALPRAZolam 0.25 MG Tablet PO (22:38)
[2018-11-20] MEDS: traZODone 50 MG Tablet PO (22:38)
[2018-11-20] MEDS: Loratadine 10 MG Tablet PO (22:42)
[2018-11-20] MEDS: MELATONIN 10 MG TABLET PO (22:43)
[2018-11-20] MEDS: Gabapentin 100 MG Capsule PO (22:43)
[2018-11-20] MEDS: Pravastatin 40 MG Tablet PO (22:43)
[2018-11-20] MEDS: APIXABAN 2.5 MG TABLET PO (22:44)
[2018-11-20] MEDS: Glycerin/Hypromellose/PEG400 15 ml Bottle 1 DRP RIGHT EYE (22:47)
[2018-11-21] VITALS (7 sets, daily range): BP systolic 129–168; BP diastolic 46–65; PULSE 62–76; RESP 14–16; TEMP 36–36.6; O2SAT 93–94
[2018-11-21] MEDS: Levothyroxine 75 MCG Tablet PO (06:15)
[2018-11-21 06:26] LABS: Absolute Lymphocyte Count 2.12 X10^3/ul (0.83-4.51); Absolute Neutrophil Count 0.9 X10^3/uL (2.0-7.7); Basophil# 0.04 X10^3/uL; Basophil% 1.1 % (0-1); Eosinophil# 0.17 X10^3/uL; Eosinophils% 4.6 % (0-5); Hematocrit 30.4 % (37-47); Hemoglobin 10.1 g/dl (12.0-15.0); Lymphocyte # 2.12 X10^3/ul (4.0); Lymphocyte % 57.1 % (19-41); Mean Corp Hgb Conc 33.2 g/gl (32-36); Mean Corpuscular Hgb 37.4 pg (27.0-32.0); Mean Corpuscular Volume 112.6 fL (81-99); Mean Platelet Vol. 11.9 fl (6.2-12.0); Monocyte# 0.49 X10^3/uL; Monocyte% 13.2 % (0-10); Neutrophil # 0.88 X10^3/uL (2.7-7.7); Neutrophil % 23.7 % (47-70); Platelet Count 85 K/mm3 (150-450); RBC Distribution Width CV 15.6 % (11.6-14.6); RBC Distribution Width SD 60.8 fl (35.1-43.9); White Blood Count 3.7 K/mm3 (4.4-11.0)
[2018-11-21 06:27] LABS: Differential Indicated SCAN CRITERIA MET; POSITIVE COUNT NO; POSITIVE DIFFERENTIAL YES; POSITIVE MORPHOLOGY NO
[2018-11-21 06:30] LABS: Anion Gap 6 (5-15); BUN 12 mg/dL (7-18); BUN/Creat Ratio 14.1 RATIO (10-20); Calcium,Total 8.5 mg/dL (8.5-10.1); Chloride 108 mmol/L (98-107); Creatinine, Serum 0.85 mg/dL (0.55-1.02); EST Glomerular Filtration Rate 69 mL/min (>60); Est Glom Filt Rate - Afr Amer 83 mL/min (>60); Estimated Creatinine Clearance 47.86 ml/min; Glucose 123 mg/dL (74-106); Magnesium 2.1 mg/dL (1.6-2.6); Potassium 3.7 mmol/L (3.5-5.1); Sodium Level 143 mmol/L (136-145)
[2018-11-21] MEDS: Fenofibrate 145 MG Tablet PO (09:12)
[2018-11-21] MEDS: Donepezil HCl 5 MG Tablet PO (09:12)
[2018-11-21] MEDS: Pentoxifylline 400 MG Tablet PO (09:12)
[2018-11-21] MEDS: Bumetanide 0.5 MG Tablet PO (09:12)
[2018-11-21] MEDS: Multivitamins,Ther W-Minerals Tablet 1 TABLET PO (09:12)
[2018-11-21] MEDS: APIXABAN 2.5 MG TABLET PO (09:12)
[2018-11-21] MEDS: DULoxetine Hcl 60 MG Capsule PO (09:13)
[2018-11-21] MEDS: Metoprolol Tartrate 25 MG Tablet 37.5 MG PO (09:13)
[2018-11-21] MEDS: Aspirin E.C. 81 MG Tablet PO (09:13)
[2018-11-21] MEDS: amLODIPine 5 MG Tablet PO (09:13)
[2018-11-21] MEDS: Ferrous Sulfate 325 MG Tablet PO (09:13)
[2018-11-21] MEDS: Pantoprazole Sodium 20 MG Tablet PO (09:13)
--- NOTE | 2018-11-21 10:05 | DS.PCM_ITS ---
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) ICD Implant November 2002; 01/20/10 ICD generator replacement; Presence of stent in coronary artery (Chronic ~11/30/01) PTCA/stent to mid RCA 11/30/01; Atherosclerotic heart disease of [place] coronary artery without angina pectoris (Chronic) PTCA/stent to mid RCA in November 2001; CABG in November 2002 with DAVIS to LAD, SVG to obtuse marginal, and SVG to PDA; Ischemic cardiomyopathy (Chronic) Ventricular tachyarrhythmia (Chronic) Palpitations (Chronic) Aortocoronary bypass status (Chronic ~12/08/02) CABG 12/08/02, DAVIS to LAD, SVG to OBtuse marginal & to PDA; Old myocardial infarction (Chronic) Angina pectoris (Chronic) Diabetes mellitus (Chronic) Paroxysmal a-fib (Chronic) Ventricular tachycardia (paroxysmal) (Chronic) HLD (hyperlipidemia) (Chronic) Hypothyroidism (Chronic) Paroxysmal SVT (supraventricular tachycardia) (Chronic) Hospital Course and Treatment Imaging Results: Diagnostic Data Chest X-Ray 11/19/18 17:39 IMPRESSION: 1. Change in pacemaker when compared to prior study. The generator now lies on the right. 2. No acute cardiopulmonary disease or other major interval change. Electronically Signed: Neal Falcon DO at 18:16 EDT Tel [phone], Service support , 2D echocardiogram Interpretation Summary Mildly dilated left ventricle. The estimated ejection fraction is 40-45 %. There are regional wall motion abnormalities as specified. Stage 2 diastolic dysfunction. The left atrium is moderately enlarged. Mild (1+) eccentric mitral valve insufficiency. Mild (1+) tricuspid valve insufficiency. Right ventricular systolic pressure estimated to be 36 mmHg. Compared to echo report dated 09/11/2018, no appreciable changes noted. Operations: None, - - left axillary dissection Procedures: 2-D Echocardiogram Summary of Care Provided: The patient is a 78 year old F with past medical history as listed which include a metastatic breast cancer status post left mastectomy, on chemotherapy, CAD status post CABG and history of paroxysmal A. fib. She was admitted with a 2-3-day history of persistent fatigue whilst at her living facility. She had recently been seen in the hospital and had pacemaker switched from the left side of her chest to the right side in preparation for radiation of her left shoulder due to metastatic cancer. On admission in the ED, she was found to be in A. fib with RVR with heart rate in the 140s. Cardizem boluses did not converted to sinus rhythm. She was therefore started on Cardizem drip. She subsequently converted to sinus rhythm and remained rate and rhythm controlled. 2D echo done showed EF of 40-45% with stage II diastolic dysfunction and regional wall motion abnormalities which were similar to previous echo done. Left atrium was moderately enlarged. Per discussion with her freelance writer Dr Rojas,, and based on her ARELY D VASC score of 5, her Plavix was stopped and she was continued on aspirin. Aspirin dose was reduced from 325 mg daily to 12 mg daily. She was also commenced on p.o. Eliquis 2.5 mg twice daily as stroke prophylaxis in light of A. fib. Patient remained stable and was discharged home on 11/21/2018. She is to follow-up with her primary care doctor and freelance writer as well as her oncologist. Patient seen and examined prior to discharge. She had no complaints and felt well. She denied any palpitations or dizziness, chest pain, diarrhea vomiting. Review of systems otherwise negative. Labs and vitals reviewed. Home m edications reviewed and reconciled. o/e: Vital Signs Height 5 ft 4 in Weight: 133 lb 2.547 oz Weight in Pounds 133.2 lbs Pulse Ox 94 Temperature 97.9 F Pulse Rate 76 Respiratory Rate 16 Blood Pressure [BP] 112/50 Blood Pressure 129/46 Blood Pressure Position [BP] Semi-Fowlers Blood Pressure Position Semi-Fowlers [] General: Alert, Oriented x3, Cooperative, No apparent distress HEENT: Atraumatic, PERRLA, EOMI, Normocephalic Oral: Moist Mucosa Neck: Supple, No JVD, Negative Carotid Bruits Lungs: Clear to auscultation, Normal air movement, No rhonchi, No wheeze, No rales Cardiovascular: Regular rate, Regular Rhythm, Normal S1, Normal S2, No murmurs Abdomen: Bowel Sounds Present, Soft, Non Tender, Non-Distended, No Hepato- splenomegaly Extremities: No clubbing, No cyanosis, No edema, Capillary Refill Less than 3 Seconds Skin: No rashes, No breakdown Musculoskeletal: No Tenderness to Palpation of Joints or Extremities Lymphatic: No Cervical, Supraclavicular, or Inguinal Adenopathy Neurological: Cranial nerves II-XII grossly intact, Neuro grossly intact, Motor Exam 5/5 strength throughout Psych/Mental Status: Normal Affect, Appropriate, Alert and oriented to time, place, person, mood and affect Plan as above - Physical Exam Vital Signs Temp Pulse Resp BP Pulse Ox 97.9 F 70 16 129/46 H 94 11/21/18 08:17 11/21/18 09:13 11/21/18 08:17 11/21/18 08:17 11/21/18 08:17 Oxygen Flow Rate (L/min) 2 Oxygen Delivery Method Room Air Weight: 133 lb 2.547 oz Body Mass Index (BMI) 22.8 Finger Stick Blood Glucose 126 Intake and Output for Last 24 Hours 11/19/18 11/20/18 11/21/18 23:59 23:59 23:59 Intake Total 1600 / 1600 120 / 120 Output Total 200 / 200 Balance 1400 / 1400 120 / 120 Laboratory Tests Past 24 Hrs 11/20/18 11/21/18 11/21/18 05:40 05:15 05:15 WBC 3.7 L RBC 2.70 L Hgb 10.1 L Hct 30.4 L MCV 112.6 H MCH 37.4 H MCHC 33.2 RDW 15.6 H RDW Differential 60.8 H Plt Count 85 L MPV 11.9 Immature Gran % (Auto) 0.300 Neut % (Auto) 23.7 L Lymph % (Auto) 57.1 H [place] % (Auto) 13.2 H Eos % (Auto) 4.6 Baso % (Auto) 1.1 H Absolute Neuts (auto) 0.9 L Absolute Lymphs (auto) 2.12 Total Counted Not Reportable Differential Comment Sodium 143 Potassium 3.7 Chloride 108 H Carbon Dioxide 29.0 Anion Gap 6 BUN 12 Creatinine 0.85 Estim Creat Clear Calc 47.86 Est GFR (MDRD) Af Amer 83 Est GFR (MDRD) Non-Af 69 BUN/Creatinine Ratio 14.1 Glucose 123 H Calcium 8.5 Magnesium 3.0 H 2.1 Discharge Diet: Low fat/ Low Cholesterol Discharge Activity: Return to Normal Activity Weight Bearing Status: Weight bearing as tolerated Call your doctor if you observe: Shortness of breath, Dizziness, Fainting spells, Swelling in the ankles, Increased palpitations (irregular heartbeat) Home Medications: Medications to take at Discharge Duloxetine Hcl [Cymbalta] 60 mg PO DAILY 03/24/16 Isosorbide Mononitrate [Imdur] 120 mg PO DAILY 03/24/16 Levothyroxine [Synthroid] 75 mcg PO DAILY 03/24/16 Omeprazole [Prilosec] 20 mg PO DAILY 03/24/16 Vit A/Vit C/Vit E/Zinc/Copper [Preservision Areds Softgel] 1 ea PO QHS 03/24/16 Cholecalciferol (Vitamin D3) [Vitamin D3] 50,000 unit PO MO 09/18/16 bumetanide 0.5 mg tablet 0.5 mg PO DAILY 12/03/17 exemestane 25 mg tablet 25 mg PO DAILY 12/03/17 pravastatin 40 mg tablet 40 mg PO QHS 12/03/17 pregabalin 100 mg capsule 100 mg PO QHS 12/03/17 ALPRAZolam [Xanax] 0.25 mg PO QHS 10/11/18 Albuterol IH (ProAir) [Proair Hfa] 2 puff INHALATION TID PRN 10/11/18 Donepezil HCl [Aricept] 5 mg PO DAILY 10/11/18 Ferrous Sulfate 325 mg PO BIDCM 10/11/18 Gabapentin [Neurontin] 100 mg PO QHS 10/11/18 Loratadine [Claritin] 10 mg PO QHS 10/11/18 Multivitamin with Iron [Tab-A-Kathy with Iron] 1 tab PO BID 10/11/18 Palbociclib [Ibrance] 125 mg PO DAILY 10/11/18 Potassium Chloride [Klor-Con] 40 meq PO DAILY 10/11/18 Propylene Glycol [Systane Balance] 1 drop RIGHT EYE BID 10/11/18 traZODone [Desyrel] 50 mg PO QHS 10/11/18 Pentoxifylline [Trental] 400 mg PO BID tablet 10/15/18 Amlodipine [Norvasc] 5 mg PO DAILY 11/19/18 Melatonin 10 mg PO QHS 11/19/18 Metoprolol Tartrate 37.5 mg PO BID 11/19/18 fenofibrate 160 mg tablet 160 mg PO DAILY 11/19/18 Apixaban [Eliquis] 2.5 mg PO BID #60 tablet 11/21/18 Aspirin E.C. [Ecotrin] 81 mg PO DAILY@0800 #30 tablet 11/21/18 Following Prescrptions Were Given to Patient: Aspirin E.C. [Ecotrin] 81 mg PO DAILY@0800 #30 tablet Apixaban [Eliquis] 2.5 mg PO BID #60 tablet Primary Care Physician: Stephany Murillo MD [Primary Care Provider] - Please follow up with your Primary Care Physician in: one week Please Follow Up With: Dr Caballero When: one week Please Follow Up With: Jimmy Collazo DO When: 1-2 weeks Please Follow Up With: Jimmy Rojas MD When: 1-2 weeks Patient Instructions: What Is Atrial Flutter/Atrial Fibrillation?, Discharge Instructions for Atrial Fibrillation, ED Afib Disposition: Asstd Living/Non-Skill NH Minutes spent on discharge:: 40 Patient Condition:: Stable Medical Necessity - Tobacco Use Smoking Status: Former smoker Meaningful Use Info Meaningful Use Diagnoses (Choose all that apply): None applicable Code Visit Inpatient E&M: 16322 Disch Hosp
--- NOTE | 2018-11-21 10:05 | DCINST_ITS ---
- Discharge Diagnoses Current Active Problems: Current Active and Chronic Problems (Last Reviewed 11/20/18 @ 06:28 by Jean Regalado MD) Atrial fibrillation with RVR (Acute) You will use the following diet at home:: Cardiac Your food should be the consistency of: Regular Your liquids should be the consistency of: Regular/Thin Discharge Activity: Return to Normal Activity Weight Bearing Status: Weight bearing as tolerated Call your doctor if you observe: Shortness of breath, Dizziness, Fainting spells, Swelling in the ankles, Increased palpitations (irregular heartbeat) Instructions: Discharge Instructions for Atrial Fibrillation, ED Afib, What Is Atrial Flutter/Atrial Fibrillation? Additional Instructions: plavix discontinued permanently Allergies/Adverse Reactions: Allergies No Known Allergies Allergy (Verified 11/19/18 17:19) Medications to take at Discharge Aspirin 325 mg PO DAILY@0800 03/24/16 Duloxetine Hcl [Cymbalta] 60 mg PO DAILY 03/24/16 Isosorbide Mononitrate [Imdur] 120 mg PO DAILY 03/24/16 Levothyroxine [Synthroid] 75 mcg PO DAILY 03/24/16 Omeprazole [Prilosec] 20 mg PO DAILY 03/24/16 Vit A/Vit C/Vit E/Zinc/Copper [Preservision Areds Softgel] 1 ea PO QHS 03/24/16 Cholecalciferol (Vitamin D3) [Vitamin D3] 50,000 unit PO MO 09/18/16 bumetanide 0.5 mg tablet 0.5 mg PO DAILY 12/03/17 exemestane 25 mg tablet 25 mg PO DAILY 12/03/17 pravastatin 40 mg tablet 40 mg PO QHS 12/03/17 pregabalin 100 mg capsule 100 mg PO QHS 12/03/17 ALPRAZolam [Xanax] 0.25 mg PO QHS 10/11/18 Albuterol IH (ProAir) [Proair Hfa] 2 puff INHALATION TID PRN 10/11/18 Donepezil HCl [Aricept] 5 mg PO DAILY 10/11/18 Ferrous Sulfate 325 mg PO BIDCM 10/11/18 Gabapentin [Neurontin] 100 mg PO QHS 10/11/18 Loratadine [Claritin] 10 mg PO QHS 10/11/18 Multivitamin with Iron [Tab-A-Kathy with Iron] 1 tab PO BID 10/11/18 Palbociclib [Ibrance] 125 mg PO DAILY 10/11/18 Potassium Chloride [Klor-Con] 40 meq PO DAILY 10/11/18 Propylene Glycol [Systane Balance] 1 drop RIGHT EYE BID 10/11/18 traZODone [Desyrel] 50 mg PO QHS 10/11/18 Pentoxifylline [Trental] 400 mg PO BID tablet 10/15/18 Amlodipine [Norvasc] 5 mg PO DAILY 11/19/18 Melatonin 10 mg PO QHS 11/19/18 Metoprolol Tartrate 37.5 mg PO BID 11/19/18 fenofibrate 160 mg tablet 160 mg PO DAILY 11/19/18 Apixaban [Eliquis] 2.5 mg PO BID #60 tablet 11/21/18 The following prescriptions were given: Apixaban [Eliquis] 2.5 mg PO BID #60 tablet Primary Care Physician: Stephany Murillo MD [Primary Care Provider] - Please follow up with your Primary Care Physician in: one week Test Results: Test results from this visit will be discussed in further detail at your follow- up appointment, if applicable. Please Follow Up With: Dr Caballero When: one week Please Follow Up With: Jimmy Collazo DO When: 1-2 weeks Please Follow Up With: Jimmy Rojas MD When: 1-2 weeks Proposed Discharge Date: 11/21/18
--- NOTE | 2018-11-21 10:22 | PHA.DC.MR ---
Pharmacy Service has performed discharge medication reconciliation for this patient upon transfer to [facility]. The patient's discharge medication list was reviewed for discrepancies and discrepancies were resolved. Home Medications Duloxetine Hcl [Cymbalta] 60 mg PO DAILY 03/24/16 Isosorbide Mononitrate [Imdur] 120 mg PO DAILY 03/24/16 Levothyroxine [Synthroid] 75 mcg PO DAILY 03/24/16 Omeprazole [Prilosec] 20 mg PO DAILY 03/24/16 Vit A/Vit C/Vit E/Zinc/Copper [Preservision Areds Softgel] 1 ea PO QHS 03/24/16 Cholecalciferol (Vitamin D3) [Vitamin D3] 50,000 unit PO MO 09/18/16 bumetanide 0.5 mg tablet 0.5 mg PO DAILY 12/03/17 exemestane 25 mg tablet 25 mg PO DAILY 12/03/17 pravastatin 40 mg tablet 40 mg PO QHS 12/03/17 pregabalin 100 mg capsule 100 mg PO QHS 12/03/17 ALPRAZolam [Xanax] 0.25 mg PO QHS 10/11/18 Albuterol IH (ProAir) [Proair Hfa] 2 puff INHALATION TID PRN 10/11/18 Donepezil HCl [Aricept] 5 mg PO DAILY 10/11/18 Ferrous Sulfate 325 mg PO BIDCM 10/11/18 Gabapentin [Neurontin] 100 mg PO QHS 10/11/18 Loratadine [Claritin] 10 mg PO QHS 10/11/18 Multivitamin with Iron [Tab-A-Kathy with Iron] 1 tab PO BID 10/11/18 Palbociclib [Ibrance] 125 mg PO DAILY 10/11/18 Potassium Chloride [Klor-Con] 40 meq PO DAILY 10/11/18 Propylene Glycol [Systane Balance] 1 drop RIGHT EYE BID 10/11/18 traZODone [Desyrel] 50 mg PO QHS 10/11/18 Pentoxifylline [Trental] 400 mg PO BID tablet 10/15/18 Amlodipine [Norvasc] 5 mg PO DAILY 11/19/18 Melatonin 10 mg PO QHS 11/19/18 Metoprolol Tartrate 37.5 mg PO BID 11/19/18 fenofibrate 160 mg tablet 160 mg PO DAILY 11/19/18 Apixaban [Eliquis] 2.5 mg PO BID #60 tablet 11/21/18 Aspirin E.C. [Ecotrin] 81 mg PO DAILY@0800 #30 tablet 11/21/18
[2018-11-21 10:30] LABS: Platelet Count 85 K/mm3 (150-450)
--- NOTE | 2018-11-21 10:30 | CASEMGMT ---
Pt to be sent home on Eliquis and med e-scribed to [facility] retail pharm previously. Call to Odalis in [facility] retail pharmacy and states that Eliquis is covered and there is no co-pay for pt at this time. Ramos DEAL aware that pt is ready for discharge at this time, voices understanding. Ivet TAVERAS CM
--- NOTE | 2018-11-21 10:42 | CASEMGMT ---
Addendum entered by Sadaf Bright 11/21/18 11:25: Received call from Arleth at [facility]. Patient will be picked up at 1230 via wc from [facility]. TOYIN notified patient, RN, and left a message at [facility]. Sadaf HARRELL Original Note: Patient is ready for discharge back to [facility]. TOYIN spoke with patient and she will need transportation back to facility. TOYIN faxed orders. TOYIN called [facility] as they arrange transport for [facility] patients. TOYIN spoke with Arleth and she will call TOYIN back when she has a company and time. The confirmation number is [id number]. Sadaf HARRELL
--- NOTE | 2018-11-21 12:22 | NURSING ---
report called to lida
== END 2018-11-21 10:04 | disposition home or self-care (01) ==
LOC: ED 21:42 → PCU 11-20 07:09
PROVIDERS: Admitting Provider Hospitalist; Emergency Provider Emergency Medicine; Family Provider Internal Medicine; PCP Internal Medicine; Referring Provider Hospitalist; Visit Provider Student in an Organized Health Care Education/Training Program
DX: I48.0 Paroxysmal atrial fibrillation (principal); I11.0 Hypertensive heart disease with heart failure; I50.22 Chronic systolic (congestive) heart failure; I25.10 Atherosclerotic heart disease of native coronary artery without angina pectoris; I25.2 Old myocardial infarction; E03.9 Hypothyroidism, unspecified; E11.22 Type 2 diabetes mellitus with diabetic chronic kidney disease; E78.5 Hyperlipidemia, unspecified; H54.8 Legal blindness, as defined in USA; J44.9 Chronic obstructive pulmonary disease, unspecified; E87.6 Hypokalemia; Z95.1 Presence of aortocoronary bypass graft; Z79.899 Other long term (current) drug therapy; Z79.02 Long term (current) use of antithrombotics/antiplatelets; Z79.82 Long term (current) use of aspirin; Z85.3 Personal history of malignant neoplasm of breast; Z95.810 Presence of automatic (implantable) cardiac defibrillator; Z87.891 Personal history of nicotine dependence; E83.42 Hypomagnesemia; F32.9 Major depressive disorder, single episode, unspecified; R94.31 Abnormal electrocardiogram [ECG] [EKG]; R00.0 Tachycardia, unspecified
CPT/HCPCS: 36415; 71045; 80048; 81001; 83735; 84443; 84484; 85025; 85049; 93005; 93306; 96361; 96365; 96366; 96372; 96376; 97802; 99218; 99285; J7040; P9612; A4216; G0378

== ENCOUNTER 2018-11-28 14:55 | Emergency (ER) | payer MEDICARE, SELFPAY ==
[2018-11-19 22:29] VITALS: BMI 22.8
[2018-11-28 14:56] VITALS: BP 118/66; PULSE 73; RESP 14; TEMP 36.3; O2SAT 96; BMI 26.6
--- NOTE | 2018-11-28 15:04 | EKG12_ITS ---
Test Reason : Blood Pressure : / mmHG Vent. Rate : 074 BPM Atrial Rate : 074 BPM P-R Int : 164 ms QRS Dur : 102 ms QT Int : 408 ms P-R-T Axes : 012 035 180 degrees QTc Int : 452 ms Normal sinus rhythm ST & T wave abnormality, consider inferior ischemia ST & T wave abnormality, consider anterolateral ischemia Abnormal ECG Confirmed by RADHA BOB ([id number]), society editor IZAIAH HERNANDEZ ([id number]) on 12/02/2018 4:38:07 PM Referred By: TANNER Confirmed By:RADHA BOB
--- NOTE | 2018-11-28 15:09 | ED.DCSUM_ITS ---
- ER Visit Summary Date of Service: 11/28/18 Chief Complaint: Generalized weakness History of Present Illness: The patient is a 78 F who has had generalized weakness for the past week. She was admitted to the hospital last week for A. fib with RVR. She states that ever since she was discharged she has been feeling weak. She denies any pain anywhere. No slurred speech or facial droop. She is on chemotherapy for breast cancer. She had her pacemaker switched from the left side to the right side to facilitate radiation in the left axillary area. She believes that ever since that happened she has not felt well. Physical Examination: Vital signs reviewed. HEENT exam unremarkable. Heart is regular rate and rhythm without murmurs. Lungs are clear to auscultation. Abdomen is soft and nontender. Extremities reveal no edema. Skin exam normal. Neurologic exam normal. Test Results: EKG is sinus rhythm with rate of 74. Nonspecific ST and T wave changes noted. Chest x-ray reveals chronic changes. Laboratory studies are unremarkable. Urinalysis negative Emergency Department Course and Treatment: Patient was given saline and Zofran. She feels improved. She is able to ambulate on her own. I do not see any reason why the patient needs to be admitted to the hospital. She will be discharged to increase hydration and follow-up with her PCP Treatment Plan: [] Disposition: Discharge Impression: Generalized weakness This note was generated with [employer] dictation software. It may contain incorrect words, spelling, and punctuation that were not noted in review of the chart prior to signing ED Disposition - Plan for ED Patient: Referrals: Stephany Murillo MD [STAFF PHYSICIAN] -
--- NOTE | 2018-11-28 15:10 | RAD_ITS ---
STUDY: X-RAY CHEST REASON FOR EXAM: Female, 78 years old. Cough and weakness. History of breast cancer and prior left mastectomy. TECHNIQUE: Single AP portable view of the chest. COMPARISON: Comparison is made with prior study dated November 19, 2018. FINDINGS: EKG electrodes are seen. The patient is status post left mastectomy. The lungs are clear and expanded. There is no demonstrated pleural abnormality. Sternal cerclage wires and vascular clips are present from a prior sternotomy and coronary artery bypass graft procedure (CABG). Borderline cardiomegaly. A right-sided dual-chamber pacemaker is seen. Normal mediastinum and devonte. Normal visualized pulmonary arteries. There is atherosclerotic calcification of the aortic arch with tortuosity. Normal visualized thoracic spine. Normal visualized ribs, clavicles, and shoulders. There is no demonstrated abnormality of the visualized soft tissue structures of the upper abdomen. RAD/Chest 1 View (Portable) IMPRESSION: No acute abnormality is present. Electronically Signed: Sal Hui, at 15:45 EDT , Service support ,
[2018-11-28 15:24] LABS: Absolute Lymphocyte Count 2.28 X10^3/ul (0.83-4.51); Absolute Neutrophil Count 2.3 X10^3/uL (2.0-7.7); Basophil# 0.05 X10^3/uL; Basophil% 0.9 % (0-1); Eosinophil# 0.18 X10^3/uL; Eosinophils% 3.3 % (0-5); Hemoglobin 12.4 g/dl (12.0-15.0); Lymphocyte # 2.28 X10^3/ul (4.0); Lymphocyte % 41.5 % (19-41); Mean Corp Hgb Conc 34.4 g/gl (32-36); Mean Corpuscular Hgb 38.2 pg (27.0-32.0); Mean Corpuscular Volume 110.8 fL (81-99); Mean Platelet Vol. 12.2 fl (6.2-12.0); Monocyte# 0.71 X10^3/uL; Monocyte% 12.9 % (0-10); Neutrophil # 2.26 X10^3/uL (2.7-7.7); Platelet Count 188 K/mm3 (150-450); RBC Distribution Width CV 16.3 % (11.6-14.6); Red Blood Count 3.25 M/mm3 (4.2-5.4); White Blood Count 5.5 K/mm3 (4.4-11.0)
[2018-11-28 15:25] LABS: POSITIVE COUNT NO; POSITIVE DIFFERENTIAL NO; POSITIVE MORPHOLOGY NO
[2018-11-28] MEDS: Ondansetron 4 MG/2 ML Vial IV (15:25)
[2018-11-28 15:31] LABS: Anion Gap 10 (5-15); BUN 12 mg/dL (7-18); BUN/Creat Ratio 13.3 RATIO (10-20); Calcium,Total 9.1 mg/dL (8.5-10.1); Chloride 103 mmol/L (98-107); EST Glomerular Filtration Rate 64 mL/min (>60); Est Glom Filt Rate - Afr Amer 78 mL/min (>60); Glucose 153 mg/dL (74-106); Potassium 3.5 mmol/L (3.5-5.1); Sodium Level 139 mmol/L (136-145)
[2018-11-28 16:14] LABS: Bacteria 0 SEEN /hpf (None Seen); Mucous, Urine 0 SEEN /hpf (<or=2+); Red Blood Cells-Urine 0 SEEN /hpf (0-5); Squamous Epithelial Cells - UA 0 SEEN /hpf (5-10); White Blood Cells 0 SEEN /hpf (0-5)
[2018-11-28 16:21] LABS: Color, Urine Yellow (Yellow); Glucose, Dipstick Normal (Normal); Ketone-Dipstick Negative (Negative); Leukocyte Esterase-Dipstick Negative /ul (Negative); Nitrite-Dipstick Negative (Negative); Occult Blood-Urine Negative /ul (Negative); Protein-Dipstick Negative (Negative); Specific Gravity, Urine 1.015 (1.002-1.030); Urine Bilirubin Dipstick Negative (Negative); Urine Clarity Clear (Clear); Urine Urobilinogen Normal (Normal)
[2018-11-28 16:26] VITALS: BP 99/66; PULSE 73; RESP 12; O2SAT 94
--- NOTE | 2018-11-28 16:51 | ED.DEP ---
ED Disposition - Plan for ED Patient: Disposition: Home or Assisted Living Instructions: ED Weakness [facility] Referrals: Stephany Murillo MD [STAFF PHYSICIAN] -
[2018-11-28 17:37] VITALS: BP 136/78; PULSE 80; RESP 16
== END 2018-11-28 17:50 | disposition home or self-care (01) ==
PROVIDERS: Emergency Provider Emergency Medicine
DX: R53.1 Weakness (principal); C50.919 Malignant neoplasm of unspecified site of unspecified female breast; I25.10 Atherosclerotic heart disease of native coronary artery without angina pectoris; I10 Essential (primary) hypertension; E78.00 Pure hypercholesterolemia, unspecified; I48.91 Unspecified atrial fibrillation; F03.90 Unspecified dementia, unspecified severity, without behavioral disturbance, psychotic disturbance, mood disturbance, and anxiety; Z95.0 Presence of cardiac pacemaker
CPT/HCPCS: 71045; 80048; 81001; 85025; 93005; 96361; 96374; 99285; J7040; A4216; J2405

== ENCOUNTER → 2018-12-05 13:08 | Outpatient (CLI) | payer MEDICARE, SELFPAY ==
--- NOTE | 2018-10-14 | IMM_PTH ---
PATIENT: KATEY CROSS LOC: [facility] U#:[id number] AGE/SX: 85/F ROOM: RE12/05/[address]: Dr. Jimmy Collazo DO : 1940 BED: DIS: SPEC #: [id number] RECD: 12/05/18 13:13 STATUS: CHER MARY #: [id number] KACIE: 10/14/18 00:[address]: Jimmy Collazo DEPT: IMMUNOHISTOCHEMISTRY RECD BY: Madalyn Tellez ENTERED: 12/05/18 13:14 SP TYPE: IMMUNO OTHR DR: Dr. Al Borges MD Tissues: Left axillary region Procedures: HER2 AMANDA (add) HI (add) IN SITU HYBRIDIZATION ER (initial) PHYSICIAN & INSTITUTION [place] [address] SPECIMEN INFORMATION: Tissue Source: Left axillary contents, axillary node dissection Clinical Info: Breast cancer Specimen Number: [id number] #2 CPT code: 69445 x3 METHODOLOGY: Deparaffinized sections of prefer/formalin-fixed tissue or PAP/DQ stained slides are incubated with monoclonal/polyclonal antibodies/oligonucleotide probes. Localization is made via biotin free immunoperoxidase method. Appropriate controls are performed and reacted as expected. Results on target cell population are indicated in the following table: RESULTS: ANTIBODY / CLONE RESULT Block 2 MORPHOMETRIC ANALYSIS ER (clone [id number]) variable, 0-59%, weak HI (clone 16/1E2) 0 Her-2Neu (clone [id number]) 1-2+ The prognostic test for HER2 is performed on formalin-fixed paraffin embedded tissue. A 3+ (positive) staining pattern is defined as intense, homogeneous, complete, circumferential membranous staining in >10% of contiguous tumor cells. A similar weak (2+) staining pattern is interpreted as equivocal. WENDY follow-up testing is recommended for all equivocal cases. Positivity/negativity for ER/HI is reported if > or < 1% of the tumor cells are immuno- reactive, respectively. The ASCO/CAP criteria is used for scoring. Reference: Journal of Clinical Oncology, 2013; 31:3566-3281 & 2010; 16:8063-4401. Duration of fixation: 9 Hrs; Sample Adequate: Yes. These assays have not been validated on decalcified tissues. Results should be interpreted with caution given the likelihood of false negativity on decalcified specimens. These tests were developed and their performance characteristics determined by [facility]. They may not have been cleared or approved by the U.S. Food and Drug Administration. The FDA has determined that such clearance or approval is not necessary. INTERPRETATION: Left axillary contents, axillary node dissection: Metastatic carcinoma, consistent with breast primary. Positive for estrogen receptors (favorable prognostic indicator). Negative for progesterone receptors (unfavorable prognostic indicator). Equivocal for overexpression of [id number]. SJ:rg 12/06/18 ADDENDUM ADDENDUM ADDENDUM ADDENDUM ADDENDUM ADDENDUM ADDENDUM ADDENDUM ADDENDUM ADDENDUM ADDENDUM ADDENDUM ADDENDUM ADDENDUM ADDENDUM ADDENDUM ADDENDUM ADDENDUM ADDENDUM ADDENDUM ADDENDUM ADDENDUM ADDENDUM ADDENDUM 12/10/2018 15:05 ADDENDUM 12/10/2018 15:05 ADDENDUM 12/10/2018 15:05 ADDENDUM 12/10/2018 15:05 ADDENDUM 12/10/2018 15:05 IN SITU HYBRIDIZATION (WENDY) FOR HER2 Interpretation: Not Amplified / Negative HER2 : CEP-17 Ratio: 1.1 Average HER2 Signal: 2.9 Average CEP-17 Signal: 2.6 Number of Tumor Cells Scanned: 50 Interpretative Information: The INFORM HER2 Dual WENDY DNA Probe Cocktail assay is performed on formalin-fixed paraffin embedded tissue and determines HER2 gene status by detecting HER2 copies via silver in situ hybridization (SISH) and Chromosome 17 copies via chromogenic red in situ hybridization on tumor cells. A minimum of 20 cells representing > 10% of contiguous and homogeneous invasive tumor cells were analyzed. HER2 gene status is classified as Non-amplified (HER2/Chr17 ratio < 2.0) or Amplified (HER2/Chr17 ratio greater than or equal to 2.0). If the resulting HER2/Chr17 ratio falls within 1.8 - 2.2 (Borderline), retesting by FISH is recommended. Reference: Luis Antonio OATES, Armando CRAWFORD, Antonio GAVIN, et al: Recommendations for Human Epidermal Growth Factor Receptor 2 Testing in Breast Cancer: Australian Society of Clinical Oncology / College of Australian Pathologists Clinical Practice Guideline Update. J Clin Oncol 31:1455-6663, 2013. SJ:felix 12/10/18
[2018-11-28 14:56] VITALS: BMI 26.6
== END ==
PROVIDERS: Visit Provider Internal Medicine Hematology & Oncology
DX: C50.919 Malignant neoplasm of unspecified site of unspecified female breast (principal)
CPT/HCPCS: 88341; 88342; 88368

== ENCOUNTER 2019-04-18 11:32 | Emergency (ER) | payer MEDICARE, SELFPAY ==
[2019-04-18 11:33] VITALS: BP 117/73; PULSE 100; RESP 18; TEMP 36.6; O2SAT 96; BMI 24.0
[2019-04-18] MEDS: Ketorolac 30 MG/ML Syringe IM (12:18)
[2019-04-18] MEDS: diazePAM 2 MG Tablet PO (12:19)
--- NOTE | 2019-04-18 12:41 | ED.VISSUMM ---
- ER Visit Summary Date of Service: 04/18/19 Chief Complaint: Back pain History of Present Illness: The patient is a 78 F who presents with low back pain. Present for the past couple days. Is worse with movement and she has been using heat which has not been helping. She tells me that she recently moved out of assisted living into her own apartment. States the movers dropped her stuff off and she has been moving all the boxes pushing them across the floor. She states that she has a bad back for years and fibromyalgia. She states that she had been seeing Dr. Rae for back injections due to degenerative changes. She has not been there for some time. She denies any bowel or bladder dysfunction but states is very painful for her to go to sit on the commode because it is too low for her. She denies any leg weakness or sensory changes. She denies any falls. No IV drug use. No fevers or rashes. Physical Examination: Afebrile vital signs stable Gen: Well-nourished well-developed Head: Normocephalic atraumatic Eyes: Perrl EOMI ENT: TMs clear no rhinorrhea moist mucous membranes Neck: Supple no lymphadenopathy no JVD nontender CVS: Regular rate rhythm no murmurs normal S1-S2 Respiratory: No distress clear to auscultation bilaterally chest nontender Abdomen: Soft nontender nondistended normal bowel sounds no masses Back: Patient is tender to palpation in the lower lumbar paraspinal musculature. There are no rashes. No fluctuant areas to suggest abscess. Extremity: Nontender no edema Skin: Normal color no rash Neuro: alert orientated ?3 CN II-XII intact normal strength sensation reflexes Psych: Normal affect normal mood Emergency Department Course and Treatment: Atraumatic low back muscle pain in the setting of increased activity/moving boxes. Patient received a dose of Toradol and a small dose of Valium. Had social work visit with her. She does not want to go to assisted living or skilled nursing even for short time she recovers from this. She is adamant that she returned home. She has home health coming to visit with her early next week. She states that she would be able to get by she had some pain medication. I will write for some [place]. The patient was advised this may cause constipation and confusion. Patient was advised to discontinue it if she feels any of the ill effects and that she should read the pharmacy insert for the full list of side effects. He should discontinue if they are present. She understands that this type of injury takes days to weeks to fully recover and does not happen overnight. She is to return if worsening or concerns Impression: 1. Lumbar muscle strain This note was generated with [employer] dictation software. It may contain incorrect words, spelling, and punctuation that were not noted in review of the chart prior to signing ED Disposition - Plan for ED Patient: Disposition: Home or Assisted Living Instructions: BACK SPASM, No Trauma Prescriptions: Hydrocodone Bitart/Apap 5-325 [[place] 5MG-325MG] 1 tab PO Q6H PRN PRN 3 Days #12 tab PRN Reason: Pain Prescription Printed Referrals: Yady Fox, [employer] [Primary Care Provider] - 1 Week if not improving
--- NOTE | 2019-04-18 13:10 | CM.ED ---
Social Work Consult: Discharge Planning Informant: Dr. Grey Met with patient in room. This home health care social worker introduced self as well as home health care social worker role, patient voicing understanding and agreeable to meet with this home health care social worker. Patient reporting to live at home alone in a 1-story apartment. Patient stating to have recently transitioned to own apartment on . Patient stating that prior to patient was living in assisted living at [facility]. Patient stating that reason for leaving [facility] was due to not liking it there. Patient stating to like new apartment but to have hurt back unpacking boxes. Patient stating to have limited support within the community. Patient stating that patient brother is blind and not able to assist patient. Patient stating that patient has transportation through [employer] and [facility]. Patient denies attending [facility] during the week but just uses the transportation services. Patient stating to have a meeting with someone on Sunday (Apr.23) to set up an aide for patient within the home. Patient declining for this home health care social worker to contact [employer] or patient insurance about who is coming to set up aide services. Patient stating that over the past week patient has not been able to get up from a chair or toilet. This home health care social worker exploring discharge options/support for patient. Patient declining skilled home health care and residential placement. Patient stating to typically use a walker at the assisted living but to have not been using a walker in patient own apartment. This home health care social worker encouraging patient to use walker to increase patient safety. Patient wanting to discharge home with pain meds and see how things go. Collaborating with Dr. Grey. Dr. Grey planning to discharge patient home with pain medication. Patient is agreeable to this plan. Patient stating to not have transportation to home. Patient requesting for this home health care social worker to contact [employer]iki [employer] to set up transportation for patient to home. 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 All questions answered. Support provided. JUANITA Petersen
== END 2019-04-18 13:18 | disposition home or self-care (01) ==
PROVIDERS: Emergency Provider Emergency Medicine; Family Provider Nurse Practitioner Adult Health; PCP Nurse Practitioner Adult Health
DX: S39.012A Strain of muscle, fascia and tendon of lower back, initial encounter (principal); X58.XXXA Exposure to other specified factors, initial encounter; Y93.9 Activity, unspecified; Y92.9 Unspecified place or not applicable; M79.7 Fibromyalgia; I25.10 Atherosclerotic heart disease of native coronary artery without angina pectoris; I50.9 Heart failure, unspecified; J44.9 Chronic obstructive pulmonary disease, unspecified; E11.9 Type 2 diabetes mellitus without complications; E78.00 Pure hypercholesterolemia, unspecified; I48.91 Unspecified atrial fibrillation; E03.9 Hypothyroidism, unspecified; Z95.810 Presence of automatic (implantable) cardiac defibrillator; Z79.01 Long term (current) use of anticoagulants; Z79.899 Other long term (current) drug therapy; Z87.891 Personal history of nicotine dependence
CPT/HCPCS: 96372; 99284

== ENCOUNTER 2019-04-23 20:36 | Emergency (ER) | payer MEDICARE, SELFPAY ==
[2019-04-23 20:38] VITALS: BP 112/68; PULSE 78; RESP 16; TEMP 36.6; O2SAT 94; BMI 25.0
--- NOTE | 2019-04-23 21:48 | RAD_ITS ---
STUDY: X-RAY - LUMBAR SPINE REASON FOR EXAM: Female, 78 years old. Lower back pain. TECHNIQUE: 3 view(s) of the lumbar spine were obtained. COMPARISON: None FINDINGS: Normal lumbar lordosis. There is no substantial scoliosis. There is a normal alignment of the vertebrae. There is diffuse demineralization with multi-level endplate spondylosis. There is multi-level degenerative disc disease with multi-level disc space narrowing. There is atherosclerotic calcification of the abdominal aorta without a demonstrated aneurysm. There is a mildly dilated segment of small bowel within the right mid abdomen associated with an air-fluid level. RAD/Lumbar Spine 2 or 3 Views IMPRESSION: Degenerative changes of the spine, as detailed above. Dilated segment of small bowel associated with an air-fluid level may be secondary to an evolving small bowel ileus. Atherosclerosis. Electronically Signed: Tona Singer MD at 22:28 EDT Tel , Service support ,
[2019-04-23] MEDS: Morphine 4 MG/ML Syringe IM (22:00)
--- NOTE | 2019-04-24 00:31 | ED.VISSUMM ---
- ER Visit Summary Date of Service: 04/24/19 Chief Complaint: Back pain History of Present Illness: The patient is a 78 F who presents with back pain that became worse again today. Patient states she was seen here 4 days ago and was given an injection for her pain at that time. Patient states she was also given a prescription for pain medication. Patient states she also sees Dr. Isbell for her pain management. Patient states her pain is worse with movement. Patient states she moved recently and has been doing a lot of bending. Patient states her pain improves with remaining still and resting. Patient states she has some intermittent numbness and tingling in her right lower leg. Patient states her pain radiates down her right leg. Patient denies any bowel or bladder changes. Patient denies any saddle anesthesia. Physical Examination: Vital signs are stable. Patient is afebrile. Patient is in no acute distress. Oral mucosa is pink and moist. Neck is supple. Trachea is midline. There is no JVD noted. Heart was regular rate and rhythm. Lungs are clear and equal bilaterally. Abdomen is soft and nontender. Musculoskeletal exam reveals tenderness over the lower lumbar spine and paraspinal muscles. There is no bony crepitance or step-off. Range of motion was limited in all motion secondary to pain. Straight leg raises were negative bilaterally. Strength is 5/5 bilateral in the lower extremities. There are no sensory deficits noted. Test Results: X-rays of the lumbar spine were obtained. There are degenerative changes but no acute fracture or spondylolisthesis. Emergency Department Course and Treatment: Patient was given an injection of morphine here. Patient was instructed to contact her primary care physician and Dr. Isbell for further management of her chronic pain. Patient understood and was agreeable with the plan. All questions were answered. Disposition: Discharge home Impression: Acute on chronic low back pain This note was generated with [employer] dictation software. It may contain incorrect words, spelling, and punctuation that were not noted in review of the chart prior to signing ED Disposition - Plan for ED Patient: Disposition: Home or Assisted Living Diagnosis: Acute exacerbation of chronic low back pain Instructions: BACK PAIN w/ SCIATICA, BACK PAIN (Acute or Chronic) Referrals: Yady Fox, S[facility]ETY AND HEALTH MANAGER-[facility] [Primary Care Provider] - As soon as possible
[2019-04-24 00:45] VITALS: BP 105/61; PULSE 71; RESP 15; O2SAT 95
--- NOTE | 2019-04-24 01:39 | ED.RN ---
PT REPORTS SHE HAS NO WAY HOME. PT HAS A CAB PASS BUT [facility] IS CLOSED. WILL MONITOR PT IN ROOM. PT REPORTS SHE HAS NO ONE SHE CAN CALL
== END 2019-04-24 04:42 | disposition home or self-care (01) ==
PROVIDERS: Emergency Provider Emergency Medicine; Family Provider Nurse Practitioner Adult Health; PCP Nurse Practitioner Adult Health
DX: M54.5 Low back pain (principal); G89.29 Other chronic pain; R20.0 Anesthesia of skin; R20.2 Paresthesia of skin; R53.1 Weakness; M54.2 Cervicalgia; H53.9 Unspecified visual disturbance; R21 Rash and other nonspecific skin eruption; I25.10 Atherosclerotic heart disease of native coronary artery without angina pectoris; M79.7 Fibromyalgia; Z79.82 Long term (current) use of aspirin; Z79.01 Long term (current) use of anticoagulants; Z79.899 Other long term (current) drug therapy
CPT/HCPCS: 72100; 96372; 99284

== ENCOUNTER → 2019-06-16 14:54 | Outpatient (CLI) | payer MEDICARE, SELFPAY ==
[2019-06-16 15:22] LABS: Absolute Lymphocyte Count 1.52 X10^3/uL (0.83-4.51); Absolute Neutrophil Count 6.1 X10^3/uL (2.0-7.7); Basophil# 0.06 X10^3/uL; Basophil% 0.7 % (0-1); Eosinophil# 0.23 X10^3/uL; Eosinophils% 2.6 % (0-5); Hematocrit 39.1 % (37-47); Hemoglobin 12.9 g/dL (12.0-15.0); Lymphocyte # 1.52 X10^3/ul (4.0); Lymphocyte % 17.4 % (19-41); Mean Corpuscular Hgb 35.6 pg (27.0-32.0); Mean Platelet Vol. 12.6 fl (6.2-12.0); Monocyte# 0.75 X10^3/uL; Monocyte% 8.6 % (0-10); NRBC Flagged by Analyzer 0.2 % (0-5); Neutrophil # 6.13 X10^3/uL (2.7-7.7); Neutrophil % 70.1 % (47-70); Platelet Count 170 K/mm3 (150-450); RBC Distribution Width CV 13.2 % (11.6-14.6); RBC Distribution Width SD 52.5 fl (35.1-43.9); Red Blood Count 3.62 M/mm3 (4.2-5.4); White Blood Count 8.7 K/mm3 (4.4-11.0)
[2019-06-16 15:44] LABS: ALB/GLOB Ratio 0.9 RATIO (0.9-2.4); AST(SGOT) 26 U/L (15-37); Alanine Aminotransfer ALT/SGPT 26 U/L (13-56); Albumin, Serum 3.4 g/dL (3.2-5.0); Alkaline Phosphatase 64 U/L (45-117); Anion Gap 6 (5-15); BUN 23 mg/dL (7-18); BUN/Creat Ratio 24.4 RATIO (10-20); Calcium,Total 9.7 mg/dL (8.5-10.1); Chloride 101 mmol/L (98-107); Cholesterol 155 mg/dL (200); Creatinine, Serum 0.94 mg/dL (0.55-1.02); EST Glomerular Filtration Rate 61 mL/min (>60); Est Glom Filt Rate - Afr Amer 74 mL/min (>60); Globulin 3.7 g/dL (2.2-4.2); Glucose 268 mg/dL (74-106); Hemoglobin A1c 7.1 % (4.2-6.3); High Density Lipoprotein 59 mg/dL; Magnesium 1.8 mg/dL (1.6-2.6); Potassium 3.5 mmol/L (3.5-5.1); Protein, Total 7.1 g/dL (6.4-8.2); Sodium Level 139 mmol/L (136-145); Thyroid Stim Hormone (TSH) 2.74 uIU/mL (0.358-3.74); Triglycerides 98 mg/dL; Very Low Density Lipoprotein 20 mg/dL (5-40)
[2019-06-16 17:09] LABS: Vitamin B12 970 pg/mL (211-911)
== END ==
PROVIDERS: Family Provider Nurse Practitioner Adult Health; PCP Nurse Practitioner Adult Health
DX: I11.0 Hypertensive heart disease with heart failure (principal); I50.32 Chronic diastolic (congestive) heart failure; I48.20 Chronic atrial fibrillation, unspecified; E11.65 Type 2 diabetes mellitus with hyperglycemia
CPT/HCPCS: 80053; 80061; 82306; 82607; 83036; 83735; 84443; 85025

== ENCOUNTER → 2019-06-18 14:38 | Outpatient (CLI) | payer MEDICARE, SELFPAY ==
[2019-06-18 15:20] LABS: Vitamin D,25 Hydroxy 72.5 ng/mL (29.95-100.01)
== END ==
PROVIDERS: Family Provider Nurse Practitioner Adult Health; PCP Nurse Practitioner Adult Health
DX: I11.0 Hypertensive heart disease with heart failure (principal); I50.32 Chronic diastolic (congestive) heart failure; I48.20 Chronic atrial fibrillation, unspecified; E11.65 Type 2 diabetes mellitus with hyperglycemia
CPT/HCPCS: 82306

== ENCOUNTER → 2020-06-30 13:58 | Outpatient (CLI) | payer MEDICARE, MEDICAID, SELFPAY ==
[2020-06-30 15:36] LABS: Absolute Lymphocyte Count 2.02 X10^3/uL (0.83-4.51); Absolute Neutrophil Count 5.7 X10^3/uL (2.0-7.7); Basophil# 0.07 X10^3/uL; Basophil% 0.8 % (0-1); Eosinophil# 0.48 X10^3/uL; Eosinophils% 5.3 % (0-5); Hematocrit 33.5 % (37-47); Hemoglobin 11.3 g/dL (12.0-15.0); Lymphocyte # 2.02 X10^3/ul (4.0); Lymphocyte % 22.1 % (19-41); Mean Corp Hgb Conc 33.7 g/dL (32-36); Mean Corpuscular Hgb 37.3 pg (27.0-32.0); Mean Corpuscular Volume 110.6 fL (81-99); Mean Platelet Vol. 12.6 fl (6.2-12.0); Monocyte# 0.84 X10^3/uL; Monocyte% 9.2 % (0-10); NRBC Flagged by Analyzer 0.3 % (0-5); Neutrophil # 5.67 X10^3/uL (2.7-7.7); Neutrophil % 61.9 % (47-70); Platelet Count 252 K/mm3 (150-450); RBC Distribution Width CV 13.2 % (11.6-14.6); RBC Distribution Width SD 53.4 fl (35.1-43.9); Red Blood Count 3.03 M/mm3 (4.2-5.4); White Blood Count 9.1 K/mm3 (4.4-11.0)
[2020-06-30 15:56] LABS: ALB/GLOB Ratio 1.1 RATIO (0.9-2.4); AST(SGOT) 22 U/L (15-37); Alanine Aminotransfer ALT/SGPT 22 U/L (13-56); Albumin, Serum 3.6 g/dL (3.2-5.0); Alkaline Phosphatase 48 U/L (45-117); Anion Gap 5 (5-15); BUN 15 mg/dL (7-18); BUN/Creat Ratio 17.9 RATIO (10-20); Calcium,Total 8.9 mg/dL (8.5-10.1); Chloride 99 mmol/L (98-107); Cholesterol 122 mg/dL (200); Creatinine, Serum 0.84 mg/dL (0.55-1.02); EST Glomerular Filtration Rate 70 mL/min (>60); Est Glom Filt Rate - Afr Amer 85 mL/min (>60); Globulin 3.4 g/dL (2.2-4.2); Glucose 218 mg/dL (74-106); High Density Lipoprotein 45 mg/dL; Potassium 3.2 mmol/L (3.5-5.1); Sodium Level 138 mmol/L (136-145); Thyroid Stim Hormone (TSH) 3.47 uIU/mL (0.358-3.74); Triglycerides 108 mg/dL; Very Low Density Lipoprotein 22 mg/dL (5-40)
[2020-06-30 16:48] LABS: Hemoglobin A1c 6.4 % (3.8-5.6)
== END ==
PROVIDERS: PCP Nurse Practitioner Adult Health; Visit Provider Family Medicine
DX: E03.9 Hypothyroidism, unspecified (principal); E11.65 Type 2 diabetes mellitus with hyperglycemia; I10 Essential (primary) hypertension; E78.2 Mixed hyperlipidemia
CPT/HCPCS: 80053; 80061; 83036; 84443; 85025

== ENCOUNTER 2021-11-22 21:01 | Inpatient (IN) | payer MEDICARE, MEDICAID, SELFPAY ==
[2021-11-22] VITALS (12 sets, daily range): BP systolic 94–111; BP diastolic 56–87; PULSE 113–145; RESP 14–25; TEMP 36.3–36.8; O2SAT 88–100; BMI 22.6; BMI 22.1
--- NOTE | 2021-11-22 21:17 | EKG12_ITS ---
Test Reason : DYSRHYTHMIA Blood Pressure : / mmHG Vent. Rate : 144 BPM Atrial Rate : 071 BPM P-R Int : 000 ms QRS Dur : 114 ms QT Int : 366 ms P-R-T Axes : 000 055 205 degrees QTc Int : 566 ms Supraventricular tachycardia with occasional Premature ventricular complexes ST & T wave abnormality, consider inferolateral ischemia Abnormal ECG Confirmed by DAYNA KILLIAN, COBY ([id number]), sound editor DARBY GARCIA ([id number]) on 11/23/2021 2:11:44 PM Referred By: DANYEL Confirmed By:COBY MCINTOSH MD
--- NOTE | 2021-11-22 21:24 | RAD_ITS ---
INDICATION: chest pain EXAMINATION/TECHNIQUE: X-RAY - XR Chest 1 View COMPARISON: 11/28/2017 chest x-ray FINDINGS: LINES/DEVICES: Right chest AICD with single lead projecting over the right ventricle. Thoracotomy wires are present. LUNGS: No airspace opacity. No nodule, mass or pleural effusion. No pneumothorax. MEDIASTINUM AND CARDIOVASCULAR STRUCTURES: Heart is upper limit of normal size and compared to the prior exam there is some mild hazy perihilar interstitial markings suggesting mild pulmonary vascular congestion. Aortic arch atherosclerosis. BONES AND SOFT TISSUES: Left axillary surgical clips. RAD/Chest 1 View (Portable) IMPRESSION: 1. Mild cardiomegaly and likely mild pulmonary vascular congestion. No other evidence of acute cardiopulmonary disease. Electronically Signed: Joe Gillis DO at 22:38 EDT ,
--- NOTE | 2021-11-22 21:25 | EX.ED.DYSGE1 ---
HPI History of Present Illness Chief Complaint: Weakness Detail of Chief Complaint: Last 2 days. 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 fib history of diabetes. States she has been generally weak the last couple days. She had some intermittent chest discomfort. Her heart rates been fast. And she just feels weak all over. She has had nausea and vomiting intermittently the last couple days. No fever or chills. No dysuria. She denies any diarrhea. She denies any recent hospitalization. She reportedly lives alone and called the squad herself. Prior similar symptoms: No Recent Illness/Hospitalization: No PFSH PFSH Medical History Acute IA, inferoposterior wall, subsequent episode of care Angina pectoris Atherosclerotic heart disease of [place] coronary artery without angina pectoris Body mass index (bmi) 26.0-26.9, adult Breast cancer Chronic systolic congestive heart failure COPD (chronic obstructive pulmonary disease) Debility Diabetes mellitus Essential hypertension HLD (hyperlipidemia) HTN (hypertension) Hypothyroidism Implantable cardioverter-defibrillator (ICD) in situ Ischemic cardiomyopathy Monomorphic ventricular tachycardia Nonrheumatic mitral valve regurgitation Nonrheumatic tricuspid (valve) insufficiency Old myocardial infarction Palpitations Paroxysmal a-fib Paroxysmal SVT (supraventricular tachycardia) Pre-syncope Presence of biventricular automatic cardioverter/defibrillator (AICD) Right leg pain Shortness of breath Shortness of breath Syncope Ventricular tachyarrhythmia Ventricular tachycardia (paroxysmal) Home Medications duloxetine 60 mg PO DAILY 03/24/16 [History Last Taken 11/28/18] isosorbide mononitrate 120 mg PO DAILY 03/24/16 [History Last Taken 11/28/18] levothyroxine 75 mcg PO DAILY 03/24/16 [History Last Taken 11/28/18] omeprazole 20 mg PO DAILY 03/24/16 [History Last Taken 11/28/18] vitamins A,C,C-bhho-zsfvvx 1 ea PO QHS 03/24/16 [History Last Taken 11/27/18] cholecalciferol (vitamin D3) 50,000 unit PO MO 09/18/16 [History Last Taken 11/25/18] bumetanide 0.5 mg tablet 0.5 mg PO DAILY 12/03/17 [History Last Taken 11/28/18] exemestane 25 mg tablet 25 mg PO DAILY 12/03/17 [History Last Taken 11/28/18] pravastatin 40 mg tablet 40 mg PO QHS 12/03/17 [History Last Taken 11/27/18] pregabalin 100 mg capsule 100 mg PO QHS 12/03/17 [History Last Taken 11/27/18] albuterol sulfate [ProAir HFA] 2 puff INHALATION TID PRN 10/11/18 [History Last Taken 11/26/18] donepezil [Aricept] 5 mg PO DAILY 10/11/18 [History Last Taken 11/28/18] ferrous sulfate 325 mg PO BIDCM 10/11/18 [History Last Taken 11/28/18] gabapentin [Neurontin] 100 mg PO QHS 10/11/18 [History Last Taken 11/27/18] loratadine [Claritin Liqui-Gel] 10 mg PO QHS 10/11/18 [History Last Taken 11/27/18] multivitamin with iron 1 tab PO BID 10/11/18 [History Last Taken 11/28/18] palbociclib [Ibrance] 125 mg PO DAILY 10/11/18 [History Last Taken 11/28/18] propylene glycol [Systane Balance] 1 drp RIGHT EYE BID 10/11/18 [History Last Taken 11/28/18] trazodone 50 mg PO QHS 10/11/18 [History Last Taken 11/27/18] [] 160 mg PO DAILY 11/19/18 [History Last Taken 11/28/18] amlodipine 5 mg PO DAILY 11/19/18 [History Last Taken 11/28/18] melatonin 10 mg PO QHS 11/19/18 [History Last Taken 11/27/18] metoprolol tartrate 37.5 mg PO BID 11/19/18 [History Last Taken 11/28/18] apixaban [Eliquis] 2.5 mg PO BID 11/28/18 [History Last Taken 11/28/18] aspirin 81 mg PO DAILY 11/28/18 [History Last Taken 11/28/18] hydrochlorothiazide 25 mg PO DAILY 11/28/18 [History Last Taken 11/28/18] pentoxifylline 400 mg PO BID 11/28/18 [History Last Taken 11/28/18] potassium chloride [Klor-Con M20] 60 meq PO DAILY 11/28/18 [History Last Taken 11/28/18] Allergy/AdvReac Type Severity Reaction Status Date / Time No Known Allergies Allergy Verified 11/22/21 21:08 Family History Son Asthma Father Cancer Mother Cancer Brother Cancer Surgical History Aortocoronary bypass status (~12/08/02) Postsurgical percutaneous transluminal coronary angioplasty (PTCA) status Presence of stent in coronary artery (~11/30/01) S/P implantation of automatic cardioverter/defibrillator (AICD) Social History Smoking Status: Never smoker ROS ROS ED ROS Narrative Weight this. Nausea and vomiting. Chest pain. Palpitations. Constitutional Constitutional ED: Denies fever(s) Eyes Eyes: Denies change in vision ENT ENT ED: Denies ear pain Cardiovascular Cardiovascular: Reports chest pain, palpitations and racing heartbeat Respiratory/Chest Respiratory/Chest: Reports dyspnea; Denies cough Gastrointestinal Gastrointestinal: Reports nausea and vomiting; Denies abdominal pain or diarrhea Genitourinary Genitourinary ED: Denies dysuria Musculoskeletal Musculoskeletal: Denies myalgias Integumentary Denies rash Neurologic Neurologic: Denies headache(s) Psychiatric Psychiatric: Denies depression Endocrine Endocrinology: Denies polyuria Allergic/Immunologic Allergic/Immunologic ED: Denies urticaria EXAM Physical Exam Narrative Exam Narrative: 81-year-old female vital signs stable except blood pressure 106/56. Heart rate looks like A. fib at 145 on the monitor. H EENT exam unremarkable. Moist use membranes. Neck nontender no JVD. Lungs clear to auscultation bilaterally. Heart tachycardic 145. Abdomen soft nontender. Normal bowel sounds no peritoneal signs. Moving all 4 extremities. 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 Normal dorsi plantar flexion. No edema. Neurologically she is awake and alert. She has very minimal eyesight. Const Vital Signs: 11/22/21 21:02 11/22/21 21:23 11/22/21 21:25 Temperature 97.3 F L Temperature Source Temporal Pulse Rate 145 H Respiratory Rate 14 Respiratory Effort Non-Labored Short of Breath Respiratory Pattern Normal Blood Pressure 106/56 L Blood Pressure Mean 72 Pulse Ox 95 93 Oxygen Delivery Method Room Air Room Air Oxygen Flow Rate (L/min) 11/22/21 21:33 11/22/21 21:37 11/22/21 21:40 Temperature Temperature Source Pulse Rate 145 H 115 H 123 H Respiratory Rate 21 H Respiratory Effort Respiratory Pattern Blood Pressure 94/57 L Blood Pressure Mean 69 Pulse Ox 88 97 Oxygen Delivery Method Room Air Nasal Cannula Oxygen Flow Rate (L/min) 2 Positive well nourished and well developed; Negative for cachectic, contractures or unkempt General Appearance ED: well developed and NAD; Negative for unkempt, cachectic, contractures or pallor Nutritional Appearance: Negative for cachectic HEENT Reports moist mucous membranes Negative for trauma Eyes EOMs intact bilaterally General Eye ED: Negative for scleral icterus Neck no lymphadenopathy, supple and no JVD General: Negative for tenderness Chest Wall inspection of chest normal and palpation of chest normal Resp normal respiratory effort and clear to auscultation bilaterally Effort and Inspection: Negative for pain with movement Auscultation: Negative for rales, rhonchi or wheezes Cardio no murmurs; Negative for regular rate or regular rhythm Rate: tachycardic GI normal to inspection, nondistended, normoactive bowel sounds, non-tender, non-distended and no masses Auscultation: normoactive bowel sounds Palpation: soft; Negative for tender or guarding Back/Spine no CVA tenderness General Back: Negative for CVA tenderness Cervical Spine: Negative for cervical spine tenderness Thoracic Spine / Upper Back: Negative for thoracic spinal tenderness Extremity normal to inspection General Extremety ED: Negative for edema or tenderness General Extremity: Negative for edema Neuro oriented x3 Sensorium / Orientation: alert; Negative for orientation impaired, lethargic or stuporous Motor Exam: strength 5/5 throughout Psych mental status grossly normal Appearance: Negative for unkempt Mood & Affect: Negative for depressed Skin no rashes or lesions noted and no wounds General Skin Exam: Negative for jaundice or pallor MDM MDM MDM Narrative Medical decision making narrative: 81-year-old with A. fib RVR with extensive past medical history including diabetes IA and A. fib. Cardiac work-up. I wrote for IV Cardizem. She will need admitted. Patient was given IV Cardizem which slowed her rate down to around 133. She still A. fib RVR she will be started on a Cardizem drip. She will be given a small saline bolus of 500 cc. I have already spoken to the hospitalist and the patient and she will be admitted to PCU. Lab Data Attestation: I reviewed the patient's lab results. Lab results narrative: CBC showed a white count of 15. H&H 10.7 and 30. Platelets 276. Electrolytes show potassium of 3.2 gap of 10 BUN 22 creatinine 0.8 glucose 181. Troponin is elevated 312. Labs: Laboratory Results - last 24 hr 11/22/21 11/22/21 21:20 21:20 WBC 15.0 H RBC 2.76 L Hgb 10.7 L Hct 30.5 L MCV 110.5 H MCH 38.8 H MCHC 35.1 RDW Std Deviation 60.6 H RDW Coeff of Ella 15.0 H Plt Count 276 MPV 11.9 Immature Gran % (Auto) 0.700 Neut % (Auto) 82.5 H Lymph % (Auto) 6.6 L [place] % (Auto) 9.0 Eos % (Auto) 0.7 Baso % (Auto) 0.5 Absolute Neuts (auto) 12.4 H Absolute Lymphs (auto) 0.99 Nucleated RBC % 0.9 Sodium 137 Potassium 3.2 L Chloride 101 Carbon Dioxide 26.0 Anion Gap 10 BUN 22 H Creatinine 0.84 Estim Creat Clear Calc 46.13 Est GFR (MDRD) Af Amer 83 Est GFR (MDRD) Non-Af 69 BUN/Creatinine Ratio 26.1 H Glucose 181 H Calcium 9.4 Troponin I High Sens 312 H* Radiography Chest X-Ray - ED: 1 View, Read by ED Physician, No Acute Disease, Chronic Changes and Cardiomegaly Diagnostic Testing: Chest x-ray, portable, single view interpreted by myself shows chronic changes. Cardiomegaly. Right-sided pacer defibrillator. No acute process. Rhythm Strip Rhythm Strip: A-fib Rate: 144 Ectopy: PVC(s) EKG Initial EKG: Attestation: I personally reviewed and interpreted this EKG as follows: Interpretation: No Acute Injury Pattern and Atrial Fibrillation Comments: Atrial fibrillation rate of [address] depression in V3 through V6 which is probably rate dependent. There are PVCs occasionally. No ST elevation. Prior EKG tracings: not available for review Critical Care Time Critical Care Time: Yes Critical care time (excluding procedures): 30-74 minutes, Including time spent:, Discussing w/Consultants, Arranging Admission or Transfer, Performing Direct Patient Care at Bedside and - (30 min) Discharge Plan Dx/Rx/DC Orders Clinical Impression: Atrial fibrillation with rapid ventricular response, Chest pain, Elevated troponin, History of IA (myocardial infarction), History of diabetes mellitus Disposition Disposition: Acute Care Hospital [facility]
[2021-11-22 21:32] LABS: Absolute Lymphocyte Count 0.99 X10^3/uL (0.83-4.51); Absolute Neutrophil Count 12.4 X10^3/uL (2.0-7.7); Basophil# 0.07 X10^3/uL; Basophil% 0.5 % (0-1); Eosinophils% 0.7 % (0-5); Hematocrit 30.5 % (37-47); Hemoglobin 10.7 g/dL (12.0-15.0); Lymphocyte # 0.99 X10^3/ul (0.83-4.51); Lymphocyte % 6.6 % (19-41); Mean Corp Hgb Conc 35.1 g/dL (32-36); Mean Corpuscular Hgb 38.8 pg (27.0-32.0); Mean Corpuscular Volume 110.5 fL (81-99); Mean Platelet Vol. 11.9 fl (6.2-12.0); Monocyte# 1.36 X10^3/uL; NRBC Flagged by Analyzer 0.9 % (0-5); Neutrophil # 12.41 X10^3/uL (2.7-7.7); Neutrophil % 82.5 % (47-70); Platelet Count 276 K/mm3 (150-450); RBC Distribution Width SD 60.6 fl (35.1-43.9); Red Blood Count 2.76 M/mm3 (4.2-5.4)
[2021-11-22] MEDS: dilTIAZem 25 MG/5 ML Vial 20 MG IV BOLUS (21:33)
[2021-11-22 21:55] LABS: Anion Gap 10 (5-15); BUN 22 mg/dL (7-18); BUN/Creat Ratio 26.1 RATIO (10-20); Calcium,Total 9.4 mg/dL (8.5-10.1); Chloride 101 mmol/L (98-107); Creatinine, Serum 0.84 mg/dL (0.55-1.02); EST Glomerular Filtration Rate 69 mL/min (>60); Est Glom Filt Rate - Afr Amer 83 mL/min (>60); Estimated Creatinine Clearance 46.13 ml/min; Glucose 181 mg/dL (74-106); Potassium 3.2 mmol/L (3.5-5.1); Sodium Level 137 mmol/L (136-145); Troponin-I HS (w/2H Reflex) 312 pg/mL (3.0-54.0)
--- NOTE | 2021-11-22 22:36 | PCM.HP.STD ---
HPI - General General Date of Admission: 11/22/21 Date of Service: 11/22/21 Chief Complaint: Debility, weakness, palpitations. HPI Narrative The patient is an 81 y/o F w/ PMHx: Macular degeneration with chronic blindness, Chronic dementia unclear type with unclear behavioral disturbance history, CAD s/p PCI and CABG, HTN, HLD, COPD, Chronic Systolic CHF/Ischemic cardiomyopathy s/p AICD, Diabetes mellitus type II, Hypothyroidism, PAF, RLS, Hx Breast CA who presents to the [facility] ED on 11/22/21 with history of worsening debility, fatigue, shortness of breath and chest discomfort starting the day prior and progressively worsening prompting eventual ED evaluation. Patient additionally reports that her heart has been racing over the last several days and that she is been diffusely weak. She is also admitted to nausea and emesis but notes this only started after the sensation of palpations and racing heart. She denies any recent ill contacts. She denies any recent fevers or chills or any loose stools or abdominal discomfort. EMS administered aspirin 81 mg x 4 however nitroglycerin was deferred secondary to low normal BP. Work-up in the ED included T 97.3, heart rate 145-->123, BP 106/56, respiratory rate 14, 95% on room air, CBC with WBC 15, hemoglobin 10.7, platelet 276 with left shift, BMP with potassium 3.2, BUN/creatinine 22/0.4, glucose 181, troponin 312, chest x-ray with cardiomegaly with right-sided pacer/defibrillator in place, EKG with atrial fibrillation with RVR with ST depressions V3 through V6 likely rate dependent with occasional PVC. In the ED patient administered cardizem bolus and will be initiated on drip. [facility] Medical History (Updated 11/22/21 @ 22:[address] Sindi Parker MD) Acute MO, inferoposterior wall, subsequent episode of care Angina pectoris Atherosclerotic heart disease of robinson coronary artery without angina pectoris Body mass index (bmi) 26.0-26.9, adult Breast cancer Chronic systolic congestive heart failure COPD (chronic obstructive pulmonary disease) Debility Diabetes mellitus Essential hypertension HLD (hyperlipidemia) HTN (hypertension) Hypothyroidism Implantable cardioverter-defibrillator (ICD) in situ Ischemic cardiomyopathy Monomorphic ventricular tachycardia Nonrheumatic mitral valve regurgitation Nonrheumatic tricuspid (valve) insufficiency Old myocardial infarction Palpitations Paroxysmal a-fib Paroxysmal SVT (supraventricular tachycardia) Pre-syncope Presence of biventricular automatic cardioverter/defibrillator (AICD) Right leg pain Shortness of breath Shortness of breath Syncope Ventricular tachyarrhythmia Ventricular tachycardia (paroxysmal) Home Medications duloxetine 60 mg PO DAILY 03/24/16 [History Last Taken 11/28/18] isosorbide mononitrate 120 mg PO DAILY 03/24/16 [History Last Taken 11/28/18] levothyroxine 75 mcg PO DAILY 03/24/16 [History Last Taken 11/28/18] omeprazole 20 mg PO DAILY 03/24/16 [History Last Taken 11/28/18] vitamins A,C,A-belz-gwhjkj 1 ea PO QHS 03/24/16 [History Last Taken 11/27/18] cholecalciferol (vitamin D3) 50,000 unit PO MO 09/18/16 [History Last Taken 11/25/18] bumetanide 0.5 mg tablet 0.5 mg PO DAILY 12/03/17 [History Last Taken 11/28/18] exemestane 25 mg tablet 25 mg PO DAILY 12/03/17 [History Last Taken 11/28/18] pravastatin 40 mg tablet 40 mg PO QHS 12/03/17 [History Last Taken 11/27/18] pregabalin 100 mg capsule 100 mg PO QHS 12/03/17 [History Last Taken 11/27/18] albuterol sulfate [ProAir HFA] 2 puff INHALATION TID PRN 10/11/18 [History Last Taken 11/26/18] donepezil [Aricept] 5 mg PO DAILY 10/11/18 [History Last Taken 11/28/18] ferrous sulfate 325 mg PO BIDCM 10/11/18 [History Last Taken 11/28/18] gabapentin [Neurontin] 100 mg PO QHS 10/11/18 [History Last Taken 11/27/18] loratadine [Claritin Liqui-Gel] 10 mg PO QHS 10/11/18 [History Last Taken 11/27/18] multivitamin with iron 1 tab PO BID 10/11/18 [History Last Taken 11/28/18] palbociclib [Ibrance] 125 mg PO DAILY 10/11/18 [History Last Taken 11/28/18] propylene glycol [Systane Balance] 1 drp RIGHT EYE BID 10/11/18 [History Last Taken 11/28/18] trazodone 50 mg PO QHS 10/11/18 [History Last Taken 11/27/18] [] 160 mg PO DAILY 11/19/18 [History Last Taken 11/28/18] amlodipine 5 mg PO DAILY 11/19/18 [History Last Taken 11/28/18] melatonin 10 mg PO QHS 11/19/18 [History Last Taken 11/27/18] metoprolol tartrate 37.5 mg PO BID 11/19/18 [History Last Taken 11/28/18] apixaban [Eliquis] 2.5 mg PO BID 11/28/18 [History Last Taken 11/28/18] aspirin 81 mg PO DAILY 11/28/18 [History Last Taken 11/28/18] hydrochlorothiazide 25 mg PO DAILY 11/28/18 [History Last Taken 11/28/18] pentoxifylline 400 mg PO BID 11/28/18 [History Last Taken 11/28/18] potassium chloride [Klor-Con M20] 60 meq PO DAILY 11/28/18 [History Last Taken 11/28/18] Allergy/AdvReac Type Severity Reaction Status Date / Time No Known Allergies Allergy Verified 11/22/21 21:08 Family History Son Asthma Father Cancer Mother Cancer Brother Cancer Surgical History (Updated 11/22/21 @ 22:[address] Sindi Parker MD) Aortocoronary bypass status (~12/08/02) History of mastectomy Postsurgical percutaneous transluminal coronary angioplasty (PTCA) status Presence of stent in coronary artery (~11/30/01) S/P implantation of automatic cardioverter/defibrillator (AICD) Social History (Updated 11/22/21 @ 22:[address] Sindi Parker MD) household members: none Smoking Status: Never smoker alcohol intake: never substance use type: does not use ROS ROS Narrative Admission Review of Systems: CONSTITUTIONAL: No weight loss, fever, chills, + weakness or fatigue. HEENT: Eyes: No visual loss, blurred vision, double vision or yellow sclerae. Ears, Nose, Throat: No hearing loss, sneezing, congestion, runny nose or sore throat. SKIN: No rash or itching, lesions, wounds. CARDIOVASCULAR: + chest pain, palpitations, edema, No orthopnea, syncopal events. RESPIRATORY: + Shortness of breath, No cough or sputum, wheezing, hemoptysis. GASTROINTESTINAL: + Anorexia, nausea, vomiting, No diarrhea, abdominal pain, melena, BRBPR. GENITOURINARY: No dysuria, frequency, urgency or retention. NEUROLOGICAL: No headache, dizziness, syncope, paralysis, ataxia, numbness or tingling in the extremities, focal weakness, change in bowel or bladder control, seizure. MUSCULOSKELETAL: + muscle, back pain, joint pain or stiffness. HEMATOLOGIC: + anemia, bleeding or bruising. LYMPHATICS: No enlarged nodes. No history of splenectomy. PSYCHIATRIC: + history of depression or anxiety. ENDOCRINOLOGIC: No reports of sweating, cold or heat intolerance. No polyuria or polydipsia. ALLERGIES: + history of allergic rhinitis. Vital Signs Vital Signs Vital Signs: 11/22/21 21:02 11/22/21 21:23 11/22/21 21:25 Temperature 97.3 F L Temperature Source Temporal Pulse Rate 145 H Respiratory Rate 14 Respiratory Effort Non-Labored Short of Breath Respiratory Pattern Normal Blood Pressure 106/56 L Blood Pressure Mean 72 Pulse Ox 95 93 Oxygen Delivery Method Room Air Room Air Oxygen Flow Rate (L/min) 11/22/21 21:33 11/22/21 21:37 11/22/21 21:40 Temperature Temperature Source Pulse Rate 145 H 115 H 123 H Respiratory Rate 21 H Respiratory Effort Respiratory Pattern Blood Pressure 94/57 L Blood Pressure Mean 69 Pulse Ox 88 97 Oxygen Delivery Method Room Air Nasal Cannula Oxygen Flow Rate (L/min) 2 Weight Weight: 134 lb 4.184 oz Body Mass Index (BMI) 22.6 Physical Exam Narrative Physical Examination: General: Awake, alert, oriented x 3 and cooperative, seated upright in the ED bed, fatigued and ill-appearing Skin: Normal color, normal turgor, no icterus, no cyanosis. HEENT: AT/NC, EOMI, PERRLA however patient does have some difficulty secondary to macular degeneration but can see in shadows, mildly dry MM, no carotid bruits or JVD noted. Lungs: Diminished, greater bases, moderate effort, no rales, ronchi or wheezing. Heart: Irregular irregular; no gallop, rub audible. Abdomen: Soft, NTTP, ND, normal BS, no HSM. Extremities: No cyanosis, no clubbing, bilateral lower extremity pedal to distal de paz edema Neurological: Patient awake, alert, oriented as noted, cognitive function appears intact; pupils equally reactive to light and accommodation although patient does have underlying significant vision deficits with bilateral macular degeneration but does seen shadows, cranial nerves grossly normal except vision deficits, moving all 4 extremities, no focal deficits, strength severely global decrease secondary to acute presentation Psychiatric: Affect appears fatigued, ill-appearing no acute evidence of depressive or anxiety feelings. Results Lab / Micro Data Result Diagrams: 11/22/21 21:20 11/22/21 21:20 Labs: Laboratory Results - last 24 hr 11/22/21 21:20: WBC 15.0 H, RBC 2.76 L, Hgb 10.7 L, Hct 30.5 L, MCV 110.5 H, MCH 38.8 H, MCHC 35.1, RDW Std Deviation 60.6 H, RDW Coeff of Ella 15.0 H, Plt Count 276, MPV 11.9, Immature Gran % (Auto) 0.700, Neut % (Auto) 82.5 H, Lymph % (Auto) 6.6 L, [place] % (Auto) 9.0, Eos % (Auto) 0.7, Baso % (Auto) 0.5, Absolute Neuts (auto) 12.4 H, Absolute Lymphs (auto) 0.99, Nucleated RBC % 0.9 11/22/21 21:20: Sodium 137, Potassium 3.2 L, Chloride 101, Carbon Dioxide 26.0, Anion Gap 10, BUN 22 H, Creatinine 0.84, Estim Creat Clear Calc 46.13, Est GFR (MDRD) Af Amer 83, Est GFR (MDRD) Non-Af 69, BUN/Creatinine Ratio 26.1 H, Glucose 181 H, Calcium 9.4, Troponin I High Sens 312 H* Rhythm Strip Rhythm Strip: A-fib Rate: 144 Ectopy: PVC(s) Assessment & Plan Assessment/Plan (1) Atrial fibrillation with rapid ventricular response: (2) Elevated troponin: PLAN: The patient is an 81 y/o F w/ PMHx: Macular degeneration with chronic blindness, Chronic dementia unclear type with unclear behavioral disturbance history, CAD s/p PCI and CABG, HTN, HLD, COPD, Chronic Systolic CHF/Ischemic cardiomyopathy s/p AICD, Diabetes mellitus type II, Hypothyroidism, PAF, RLS, Hx Breast CA who presents to the [facility] ED on 11/22/21 with history of worsening debility, fatigue, shortness of breath and chest discomfort starting the day prior and progressively worsening prompting eventual ED evaluation. #1. Paroxsymal atrial fibrillation with RVR with indeterminate cardiac enzyme suspected related with RVR versus potential evolving NSTEMI: EKG in ED w/ atrial fibrillation w/ RVR. Patient administered cardizem bolus in ED. Will admit to PCU, maintain on telemetry, obtain cardiac enzyme serial set, obtain magnesium level, obtain ECHO given last noted 11/19/18, obtain TSH level. Continue home eliquis regimen as well as metoprolol with overlap cardizem drip. If cardiac enzymes continue to significantly rise will need to transition to heparin drip from Eliquis. Will request cardiology evaluation. If patient atrial fibrillation is intractable will request cardiology evaluation. #2. Hypokalemia: Admission K+ 3.2, magnesium level requested, supplementation given, repeat level in AM. #3. Chronic systolic CHF/ischemic cardiomyopathy: Status post AICD placement, device interrogation requested, 11/19/2018 echocardiogram with mildly dilated LV, EF 40 to 45%, regional wall motion abnormalities noted, stage II diastolic dysfunction, moderately enlarged LA, mild MVI, mild TVI, RVSP 36 mmHg reportedly unchanged from 09/11/2018 echo. We will continue aspirin, Eliquis, statin, metoprolol, bumex, not on GERRY inhibitor or ARB. #4. Chronic COPD: Will maintain on oxygen with wean as tolerated to room air, continue budesonide duonebs given tachycardia upon presentation, PRN albuterol, HOB, IS parameters. #5. CAD: Status post PCI and CABG, will continue patient home aspirin, Eliquis, statin, metoprolol, not on GERRY inhibitor or ARB. #6. Diabetes mellitus type II: From current list not on any diabetic regimen, potentially diet controlled, hemoglobin A1c requested, accu checks w/ ISS. #7. Hypertension: Continue home regimen including amlodipine, isosorbide metoprolol with temporary IV cardizem drip as noted, PRN hydralazine. #8. Hyperlipidemia: Continue home statin regimen. AM FLP. #9. Hypothyroidism: Continue home synthroid regimen, TSH pending. #10. Anxiety and depression: We will continue patient home duloxetine regimen. #11. Dementia, unclear type with unclear behavioral disturbance history: We will continue patient home Aricept regimen, maintain on fall precautions, therapies and case management consulted for discharge planning. #12. History of breast cancer: Unclear specific type, will continue patient home Ibrance home regimen. #13. GERD: We will maintain on PPI. #14. DVT prophylaxis: SCDs, continue home Eliquis regimen. #15. CODE status: Patient SURAJ is her son she believes but she is not sure and she is unsure if living will is in. Discussed CODE status at length including difference between FULL code, DNR-CCA and DNR-CC status. Following discussions about the differences in these status, requested DNR-CCA, no intubation. Advanced Care Planning Face to Face Time: 16 minutes. Charges/Coding Visit Charges Inpatient E&M: 40598 Init Hosp L3 Procedures Hospitalists Procedures: 29311 Advncd Care Plan 30 Min
[2021-11-22 23:14] LABS: Magnesium 1.8 mg/dL (1.6-2.6)
--- NOTE | 2021-11-22 23:21 | ECHOD_ITS ---
Reason For Study: PAF Procedure This was a 2D Doppler, Color Flow transthoracic echocardiogram. The exam was of adequate technical quality. Exam performed portable in patient room. Left Ventricle Moderately dilated left ventricle. D shaped septum in systole and diastole. Severe segmental systolic dysfunction (see wall motion). The estimated ejection fraction is 25 %. Unable to assess diastolic dysfunction. Anterio-Basal: Hypokinetic. Lateral-Basal: Hypokinetic. Posterior-Basal: Hypokinetic. Infero-Basal: Akinetic. Basal inferoseptal: Akinetic. Basal anteroseptal: Hypokinetic. Mid-Anterior : Hypokinetic. Mid-Lateral : Hypokinetic. Mid-Posterior: Hypokinetic. Mid-Inferior: Akinetic. Mid-inferoseptal : Akinetic. Mid-anteroseptal : Hypokinetic. Anterior Abbot : Hypokinetic. Inferior Abbot : Not visualized. Lateral Abbot : Hypokinetic. Septal Abbot : Hypokinetic. Right Ventricle Moderately dilated right ventricle. ICD or pacer leads identified within the right ventricle. Moderate global right ventricular systolic dysfunction. Atria The left atrium is mildly enlarged. Normal right atrium. ICD or pacer leads identified within the right atrium. No doppler evidence for ASD. Mitral Valve There is no mitral annular calcification. Mild focal mitral valve calcification of the posterior leaflet. Mild diffuse mitral valve thickening. Mild papillary muscle dysfunction of the mitral valve. Moderately severe (3+) eccentric mitral valve insufficiency. Tricuspid Valve Normal tricuspid valve. Moderately severe (3+) tricuspid valve insufficiency. Right ventricular systolic pressure estimated to be 52 mmHg. Aortic Valve Trisinus/trileaflet aortic valve. Mild diffuse aortic valve thickening. Mild focal aortic valve calcification. Pulmonic Valve The pulmonic valve is not well visualized. Trivial pulmonic valve insufficiency. Great Vessels Normal sized aortic root. Pericardium/Pleural No pericardial effusion. Echolucency compatible with a pleural effusion. MMode/2D Measurements & Calculations LVIDd: 6.2 cm IVSd: 0.79 cm Ao root diam: 3.0 cm LVIDs: 5.3 cm LVPWd: 0.76 cm LA dimension: 4.9 cm RVDd: 4.5 cm FS: 15.8 % LAV(MOD-bp): 60.9 ml LA A4 area: 20.6 cm2 RA A4 area: 19.4 cm2 LAV(MOD-bp) Indexed: 36.9 ml/m2 LAV(MOD-sp2): 65.1 ml LAV(MOD-sp4): 58.6 ml Doppler Measurements & Calculations MV E max amaris: 104.8 cm/sec Ao V2 max: 109.1 cm/sec LV V1 max: 68.3 cm/sec Ao max P.9 mmHg LV V1 max P.9 mmHg PA V2 max: 93.7 cm/sec TR max amaris: 329.7 cm/sec TR max P.6 mmHg ECHO/Echo Complete Interpretation Summary Moderately dilated left ventricle. The estimated ejection fraction is 25 %. D shaped septum in systole and diastole. Moderately dilated right ventricle. Moderate global right ventricular systolic dysfunction. The left atrium is mildly enlarged. Mild focal mitral valve calcification of the posterior leaflet. Mild diffuse mitral valve thickening. Mild papillary muscle dysfunction of the mitral valve. Moderately severe (3+) eccentric mitral valve insufficiency. Moderately severe (3+) tricuspid valve insufficiency. Mild diffuse aortic valve thickening. Mild focal aortic valve calcification. Trivial pulmonic valve insufficiency. Echolucency compatible with a pleural effusion. Right ventricular systolic pressure estimated to be 52 mmHg. Unable to assess diastolic dysfunction. Ordering Physician: Sindi Parker Referring Physician: Roscoe Bradley Performed By: Ric Franco RCS
[2021-11-22 23:28] LABS: Reflex Troponin-HS? (from REC) Y
[2021-11-23] VITALS (41 sets, daily range): BP systolic 80–123; BP diastolic 41–98; PULSE 61–122; RESP 17–27; TEMP 36.1–36.9; O2SAT 90–100
[2021-11-23 00:14] LABS: Troponin-I HS 316 pg/mL (3.0-54.0)
[2021-11-23] MEDS: Potassium Chloride Oral Tablet 20 MEQ 40 MEQ PO (00:44)
[2021-11-23] MEDS: Metoprolol Tartrate 25 MG Tablet 37.5 MG PO (00:45)
[2021-11-23] MEDS: Ondansetron 4 MG/2 ML Vial IV ×2 (02:54→11:01)
[2021-11-23 05:28] LABS: Absolute Lymphocyte Count 0.88 X10^3/uL (0.83-4.51); Absolute Neutrophil Count 16.1 X10^3/uL (2.0-7.7); Basophil# 0.08 X10^3/uL; Basophil% 0.4 % (0-1); Eosinophil# 0.02 X10^3/uL; Eosinophils% 0.1 % (0-5); Hematocrit 32.4 % (37-47); Hemoglobin 11.5 g/dL (12.0-15.0); Lymphocyte # 0.88 X10^3/ul (0.83-4.51); Lymphocyte % 4.6 % (19-41); Mean Corp Hgb Conc 35.5 g/dL (32-36); Mean Corpuscular Hgb 39.9 pg (27.0-32.0); Mean Corpuscular Volume 112.5 fL (81-99); Mean Platelet Vol. 12.4 fl (6.2-12.0); Monocyte# 1.96 X10^3/uL; Monocyte% 10.2 % (0-10); NRBC Flagged by Analyzer 1.7 % (0-5); Neutrophil # 16.08 X10^3/uL (2.7-7.7); Neutrophil % 83.3 % (47-70); POSITIVE DIFFERENTIAL YES; Platelet Count 350 K/mm3 (150-450); RBC Distribution Width CV 14.9 % (11.6-14.6); RBC Distribution Width SD 61.8 fl (35.1-43.9); Red Blood Count 2.88 M/mm3 (4.2-5.4); White Blood Count 19.3 K/mm3 (4.4-11.0)
[2021-11-23] MEDS: Levothyroxine 75 MCG Tablet PO (05:38)
[2021-11-23 05:41] LABS: Differential Comment SCANNED; Differential Indicated SCAN CRITERIA MET; Macrocytosis 2+
[2021-11-23 05:42] LABS: Ovalocyte RARE; Tear Drop Cell RARE
[2021-11-23] MEDS: Acetaminophen 325 MG Tablet 650 MG PO ×2 (05:42→13:47)
[2021-11-23 05:55] LABS: Troponin-I HS 235 pg/mL (3.0-54.0)
--- NOTE | 2021-11-23 05:55 | EKG12_ITS ---
Test Reason : A FIB Blood Pressure : / mmHG Vent. Rate : 092 BPM Atrial Rate : 227 BPM P-R Int : 000 ms QRS Dur : 116 ms QT Int : 408 ms P-R-T Axes : 000 083 174 degrees QTc Int : 504 ms Atrial flutter with variable A-V block with premature ventricular or aberrantly conducted complexes Incomplete left bundle branch block ST & T wave abnormality, consider lateral ischemia Prolonged QT Abnormal ECG Confirmed by ARUN KILLIAN, MEIR ([id number]), writer editor NOEMI ROJO ([id number]) on 12/01/2021 1:28:43 PM Referred By: CLAUDETTE Confirmed By:MEIR DIAS MD
[2021-11-23 06:05] LABS: ALB/GLOB Ratio 1.3 RATIO (0.9-2.4); AST(SGOT) 943 U/L (15-37); Alanine Aminotransfer ALT/SGPT 809 U/L (13-56); Alkaline Phosphatase 45 U/L (45-117); Anion Gap 12 (5-15); BUN 29 mg/dL (7-18); BUN/Creat Ratio 23.2 RATIO (10-20); Calcium,Total 8.7 mg/dL (8.5-10.1); Chloride 101 mmol/L (98-107); Cholesterol 76 mg/dL (200); Creatinine, Serum 1.25 mg/dL (0.55-1.02); EST Glomerular Filtration Rate 44 mL/min (>60); Est Glom Filt Rate - Afr Amer 53 mL/min (>60); Globulin 3.1 g/dL (2.2-4.2); Glucose 222 mg/dL (74-106); High Density Lipoprotein 30 mg/dL; Potassium 4.1 mmol/L (3.5-5.1); Protein, Total 7.1 g/dL (6.4-8.2); Sodium Level 135 mmol/L (136-145); Thyroid Stim Hormone (TSH) 5.17 uIU/mL (0.358-3.74); Triglycerides 85 mg/dL; Very Low Density Lipoprotein 17 mg/dL (5-40)
[2021-11-23 07:05] LABS: Bedside Glucose 215 mg/dL (74-106)
[2021-11-23] MEDS: Insulin Lispro 100 UNIT/ML INSULN.PEN SC ×4 (07:14→21:03)
[2021-11-23 07:16] LABS: Hemoglobin A1c 5.6 % (3.8-5.6)
--- NOTE | 2021-11-23 07:32 | US_ITS ---
STUDY: ABDOMINAL ULTRASOUND - RIGHT UPPER QUADRANT REASON FOR VISIT: Female, 81 years old Elevated liver chemistry, TB and leukocytosis TECHNIQUE: Ultrasound evaluation of the right upper quadrant was performed with real-time and static rahman-scale imaging. TECHNICAL QUALITY: Adequate. COMPARISON: None. FINDINGS: Small amount of ascites. Liver: The liver measures 15.9 cm. There is increased echogenicity consistent with fatty infiltration. The bile ducts are within normal limits. There is hepatic color flow. The direction of portal flow is hepatopetal. There is no demonstrated mass lesion. Gallbladder: There is a contracted gallbladder. The gallbladder wall measures 2.3 mm. There is a negative sonographic Rowe''s sign. There is pericholecystic fluid. There are no gallstones. Common Bile Duct (C.B.D.): The common bile duct measures 3.4 mm. Pancreas: Normal size of the head, body and tail of the pancreas. There is normal echogenicity of the pancreas. There is no demonstrated pancreatic mass or cyst. Right Kidney: Normal size of the right kidney. The right kidney measures 9.7 cm x 5 cm x 3.8 cm. Normal renal cortex. The right cortex measures 1.5 cm. There is a 3.5 cm x 2.9 cm x 2.9 cm renal cyst. There is no right hydronephrosis. US/Abdomen Limited IMPRESSION: Fatty infiltration of the liver. Small amount of ascites and pericholecystic fluid. Right renal cyst. Electronically Signed: Sal Hui MD at 9:12 EDT ,
--- NOTE | 2021-11-23 07:32 | PCM.PN.HOSP ---
Subjective Subjective Follow-up for shortness of breath, non-STEMI, acute liver injury Objective Data Objective Data Vital Signs: Vital Signs Temp Pulse Resp BP Pulse Ox 97.3 F L 90 20 H 114/87 H 95 11/23/21 06:20 11/23/21 06:20 11/23/21 06:20 11/23/21 06:20 11/23/21 07:16 Oxygen Flow Rate (L/min) 2 Oxygen Delivery Method Nasal Cannula Weight: 128 lb 11.999 oz Body Mass Index (BMI) 22.1 Intake & Output: Intake and Output for Last 24 Hours 11/21/21 11/22/21 11/23/21 23:59 23:59 23:59 Intake Total 504.59 / 627.09 360.41 / 360.41 Balance 504.59 / 627.09 360.41 / 360.41 Lab / Micro Data Result Diagrams: 11/23/21 05:20 11/23/21 05:20 Labs: Laboratory Results - last 24 hr 11/22/21 21:20: WBC 15.0 H, RBC 2.76 L, Hgb 10.7 L, Hct 30.5 L, MCV 110.5 H, MCH 38.8 H, MCHC 35.1, RDW Std Deviation 60.6 H, RDW Coeff of Ella 15.0 H, Plt Count 276, MPV 11.9, Immature Gran % (Auto) 0.700, Neut % (Auto) 82.5 H, Lymph % (Auto) 6.6 L, [place] % (Auto) 9.0, Eos % (Auto) 0.7, Baso % (Auto) 0.5, Absolute Neuts (auto) 12.4 H, Absolute Lymphs (auto) 0.99, Nucleated RBC % 0.9 11/22/21 21:20: Sodium 137, Potassium 3.2 L, Chloride 101, Carbon Dioxide 26.0, Anion Gap 10, BUN 22 H, Creatinine 0.84, Estim Creat Clear Calc 46.13, Est GFR (MDRD) Af Amer 83, Est GFR (MDRD) Non-Af 69, BUN/Creatinine Ratio 26.1 H, Glucose 181 H, Calcium 9.4, Troponin I High Sens 312 H* 11/22/21 21:20: Magnesium 1.8 11/22/21 23:43: Troponin I High Sens 316 H* 11/23/21 05:20: WBC 19.3 H, RBC 2.88 L, Hgb 11.5 L, Hct 32.4 L, MCV 112.5 H, MCH 39.9 H, MCHC 35.5, RDW Std Deviation 61.8 H, RDW Coeff of Ella 14.9 H, Plt Count 350, MPV 12.4 H, Immature Gran % (Auto) 1.400 H, Neut % (Auto) 83.3 H, Lymph % (Auto) 4.6 L, [place] % (Auto) 10.2 H, Eos % (Auto) 0.1, Baso % (Auto) 0.4, Absolute Neuts (auto) 16.1 H, Absolute Lymphs (auto) 0.88, Nucleated RBC % 1.7, Differential Comment SCANNED, Diff Path Review May , Macrocytosis 2+, Tear Drop Cells RARE, Ovalocytes RARE 11/23/21 05:20: Sodium 135 L, Potassium 4.1, Chloride 101, Carbon Dioxide 22.0, Anion Gap 12, BUN 29 H, Creatinine 1.25 H, Estim Creat Clear Calc 31.00, Est GFR (MDRD) Af Amer 53 L, Est GFR (MDRD) Non-Af 44 L, BUN/Creatinine Ratio 23.2 H, Glucose 222 H, Calcium 8.7, Total Bilirubin 3.00 H, AST 943 H, ALT 809 H, Alkaline Phosphatase 45, Total Protein 7.1, Albumin 4.0, Globulin 3.1, Albumin/Globulin Ratio 1.3, Triglycerides 85, Cholesterol 76, LDL Cholesterol 29, VLDL Cholesterol 17, HDL Cholesterol 30 L, TSH 5.17 H 11/23/21 05:20: Hemoglobin A1c 5.6 11/23/21 05:20: Troponin I High Sens 235 H* 11/23/21 06:59: POC Glucose 215 H Radiography Diagnostic Testing: Radiology Impression Chest X-Ray 11/22/21 21:24 IMPRESSION: 1. Mild cardiomegaly and likely mild pulmonary vascular congestion. No other evidence of acute cardiopulmonary disease. Electronically Signed: Joe Gillis DO at 22:38 EDT , Rhythm Strip Rhythm Strip: A-fib Rate: 144 Ectopy: PVC(s) Physical Exam Narrative Seen and examined Patient lethargic. Denies fever or chills. Had vomiting 1 time yesterday after admission. Denies diarrhea. She is not much concerned about chest pain/pressure and he states it was not bad but more shortness of breath for last 2 days. Denies diarrhea. No new lower intact symptoms or burning micturition. Denies abdominal pain or issues with the gallbladder in the past. Denies any new addition or change of medication/herbal or [id number] medications. Liver biochemistry tests are elevated Physical Examination: General: Mild lethargy. Oriented x3. Slow to respond. HEENT: Atraumatic, PERRLA, EOMI, Normocephalic Oral: Oral mucosa dry. No Gingival or Mucosal Lesions/ Ulcerations Neck: Supple, No JVD, Negative Carotid Bruits Lungs: Air entry diminished in bilateral lung bases. No crepitation/rhonchi Cardiovascular: Mild sinus tachycardia with multiple PVCs, irregular heartbeat. CABG scar. No appreciable murmur Abdomen: Bowel Sounds Present, Soft, Non Tender, Non-Distended. No palpable mass : No renal angle tenderness. No suprapubic tenderness. Extremities: No edema, Capillary Refill Less than 3 Seconds Skin: No rashes, No breakdown Musculoskeletal: Mild to moderate muscle atrophy extremities. No Tenderness to Palpation of Joints or Extremities Neurological: Cranial nerves II-XII grossly intact, DTR 2+/4. Psych/Mental Status: Affect. Assessment & Plan Assessment/Plan (1) Atrial fibrillation with rapid ventricular response: (2) Elevated troponin: PLAN: The patient is an 81 y/o F with multiple comorbidities admitted with shortness of breath, fatigue, dyspnea on exertion and chest discomfort. On evaluation in ED was found to be A. fib with RVR. #1. Paroxsymal atrial fibrillation with RVR: Patient is admitted in PCU. Twelve-lead EKG shows A. fib with RVR. Multiple PVCs, incomplete left bundle branch block with nonspecific ST-T abnormality. Info Print Press Operator consulted. Patient on metoprolol, Cardizem drip and Eliquis. budget consultant shows sinus tachycardia with multiple PVCs. #2. Non-NSTEMI, unclear type I, primary event or type II, due to increased demand from A. fib RVR/hyperthyroidism, : Patient seen by director alliance marketing. Currently on medical management to treat underlying precipitating factor, A. fib with RVR. Correct hypokalemia and other underlying electrolyte abnormality. #3. 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 fib with RVR with history of coronary artery status post PCI and CABG, severe valvular heart disease, MR, TR and moderate to severe pulmonary hypertension : Chest x-ray individually reviewed shows increased pulmonary vascular congestion status post AICD placement, device interrogation requested, 11/19/2018 echocardiogram with mildly dilated LV, EF 40 to 45%, regional wall motion abnormalities noted, stage II diastolic dysfunction, moderately enlarged LA, mild MVI, mild TVI, RVSP 36 mmHg reportedly. Continue aspirin, Eliquis, statin, metoprolol, bumex, not on GERRY inhibitor or ARB. On 11/23/2021, 2D echo shows EF 25% decrease from the previous 1 of 40 to 45%. Moderately dilated RV, global RV systolic dysfunction, LA mildly enlarged, and mitral valve thickening and calcification. At least severe 3+ MR, 3+ TR with mild diffuse intimal thickening. RVSP 52?65 moderate to severe pulmonary hypertension #4.COPD:maintain on oxygen with wean as tolerated to room air, continue budesonide duonebs given tachycardia upon presentation, PRN albuterol, HOB, IS parameters. #5. Diabetes mellitus type II: Accu-Cheks insulin is covered with below sliding scale #6. Hypertension: Continue home regimen including amlodipine, isosorbide metoprolol with temporary IV cardizem drip as noted, PRN hydralazine. #7. Hyperlipidemia: Continue home statin regimen. AM FLP. #8. Currently hyperthyroidism with history of hypothyroidism: TSH 5.17 and free T4 1.53 elevated suggestive of hyperthyroidism although patient has history of hypothyroidism. At home, the patient on Synthroid 75 mcg daily, discontinued. Thyroid function test difficult to interpret as patient is acutely sick and usually patient of hyperthyroidism due to high Synthroid dose should have low TSH and high free T4. Repeat thyroid function test after 1 week on baseline. #9. Acute liver injury exact etiology unclear: Patient denies any heavy alcohol use, history of new medication or herbal medication. Denies history of chronic hepatitis including BNC. Patient has been Covid vaccinated and boosted. Liver chemistry was normal in June 2020. Came with ALT at 89, AST 943, total bili 3.0. Alkaline phosphatase 45 normal GGT 51 normal. CK 56, LDH 670. Overall, it seems mainly hepatocellular necroinflammatory pattern. Monitor liver test. Patient not in hypotension. Viral hepatitis panel ordered. May be due to recent viral flulike infection OR DILI. Right upper quadrant sonogram ordered. Acetaminophen, TriCor, exemestane, loratadine, Pentoxifylline AND pentoxifylline 10. Anxiety and depression, dementia unclear type and classification, history of breast cancer unclear staging type and classification, GERD: continue patient home duloxetine regimen. Follow-up as an outpatient. Patient on implants at home. Breast cancer seems in remission. DVT prophylaxis: SCDs, continue home Eliquis regimen. CODE status: DNR CC arrest, no intubation Total time of the visit including total time spent in counseling or coordination of care, (more than 50% of the total time, spent in obtaining medical information from nurses and other ancillary care providers,explaining to the patient about labs, imaging, diagnosis and management), addressing acute liver injury, meds reconciliation, discussion with director alliance marketing review of labs and imaging is 40 minutes. Charges/Coding Visit Charges Inpatient E&M: 94605 Subs Hosp L3
[2021-11-23 07:35] LABS: T4 Free Direct 1.53 ng/dL (0.76-1.46)
[2021-11-23 07:56] LABS: Phosphorus 4.9 mg/dL (2.5-4.9)
[2021-11-23 08:02] LABS: CPK Total, Creatine Kinase 56 U/L (26-192); GGTP 51 U/L (5-55); LDH 670 U/L (84-246)
[2021-11-23] MEDS: proCHLORPERazine 10 MG/2 ML Vial 5 MG IV (08:07)
[2021-11-23] MEDS: 0.9% Saline Lock 10 ML Syringe IV ×3 (08:07→16:22)
[2021-11-23] MEDS: Glycerin/Hypromellose/PEG400 15 ml Bottle 1 DRP RIGHT EYE (08:10)
[2021-11-23] MEDS: Pentoxifylline 400 MG Tablet PO (08:12)
[2021-11-23] MEDS: Aspirin E.C. 81 MG Tablet PO (08:12)
[2021-11-23] MEDS: Donepezil HCl 5 MG Tablet PO (08:12)
[2021-11-23] MEDS: Pantoprazole Sodium 20 MG Tablet PO (08:12)
[2021-11-23] MEDS: DULoxetine Hcl 60 MG Capsule PO (08:13)
[2021-11-23] MEDS: Bumetanide 0.5 MG Tablet PO (08:14)
[2021-11-23] MEDS: Fenofibrate 145 MG Tablet PO (08:14)
[2021-11-23] MEDS: APIXABAN 2.5 MG TABLET PO (08:14)
[2021-11-23] MEDS: Potassium Chloride Oral Tablet 20 MEQ 60 MEQ PO (08:17)
--- NOTE | 2021-11-23 09:32 | PCM.CONS.C ---
Assessment & Plan Assessment/Plan (1) Non-ST elevation (NSTEMI) myocardial infarction: PLAN: The patient does have abnormal cardiac enzymes. At the present time it is not clear whether this represents a primary CAD type I event versus potentially related to a type II event brought out by her atrial dysrhythmia with rapid ventricular response superimposed upon her cardiovascular condition. Her cardiac enzymes have been followed and they are decreasing. Her ECG was reviewed and is as noted. She will continue noninvasive valuation with a transthoracic echocardiogram to reassess her left ventricular wall motion and systolic function. Depending upon her clinical course she may need additional noninvasive or invasive evaluation. However, prior to proceeding with any invasive evaluation her multiple comorbidities and her overall frail and debilitated state would have to be taken into consideration. (2) Atherosclerotic heart disease of [place] coronary artery without angina pectoris: QUALIFIERS: [place] vs. transplanted heart: [place] heart Qualified Code(s): I25.10 - Atherosclerotic heart disease of [place] coronary artery without angina pectoris PLAN: She does have a history of CAD as noted. She has undergone previous PCI and CABG. Again her cardiac enzymes have decreased. She will continue her noninvasive valuation. She will continue medical therapy at this time. (3) Presence of stent in coronary artery: PLAN: She does have a history of previous PCI as noted. She will continue to be monitored and continue noninvasive valuation at this time. (4) Aortocoronary bypass status: PLAN: Her CABG history was reviewed. Her [facility] cardiac catheterization which is available for review was noted. At that time her coronary grafts were patent. Again she will continue medical therapy and noninvasive valuation at this time. (5) Ventricular tachyarrhythmia: PLAN: She has a history of ventricular dysrhythmias. She has been on medical therapy in the past which also included amiodarone therapy. This has been discontinued in the past. She does have an ICD in place. (6) Atrial fibrillation with RVR: PLAN: She has a history of PAF. It appears she presented with atrial fibrillation/flutter with rapid ventricular response. She is on rate control therapy at this time and her rate control therapy with respect to her beta-blockers will be adjusted. She has been on anticoagulant therapy. Ideally she would be considered for additional antiarrhythmic therapy however there are limits based upon her cardiovascular and noncardiovascular comorbidities as to what agent she may or may not be able to tolerate. Thus at the present time she will continue rate control therapy. She will continue her noninvasive evaluation. (7) Chronic systolic congestive heart failure: PLAN: She has a history of chronic systolic mediated CHF. At the moment she appears without acute orthopnea or PND or ongoing peripheral pitting edema. Her left ventricular wall motion systolic function will be reassessed with a transthoracic echocardiogram. In the meantime she will continue her medical management. (8) Presence of biventricular automatic cardioverter/defibrillator (AICD): PLAN: She has a history of an underlying ICD. Request will be made to have this interrogated to assist with her diagnosis and care. (9) Nonrheumatic mitral valve regurgitation: PLAN: She has a history of both MR and TR. Her valvular disease can be reassessed with an echocardiogram. (10) Nonrheumatic tricuspid (valve) insufficiency: PLAN: She will continue evaluation and care as noted above. (11) HLD (hyperlipidemia): QUALIFIERS: Hyperlipidemia type: unspecified Qualified Code(s): E78.5 - Hyperlipidemia, unspecified PLAN: Her lipid-lowering therapy will be placed on hold based upon concerns of her elevated hepatic transaminases. (12) Hypothyroidism: QUALIFIERS: Hypothyroidism type: unspecified Qualified Code(s): E03.9 - Hypothyroidism, unspecified PLAN: Her thyroid studies were noted. Her thyroid studies do create a concern with respect to additional antiarrhythmic agent such as amiodarone. (13) Hepatic insufficiency: PLAN: Her hepatic studies also create is concern as to additional medical therapy especially antiarrhythmic therapy such as amiodarone therapy. At the same time the etiology of her elevated hepatic transaminases is unclear. She is being further evaluated with noninvasive studies. Addt'l Comments Overall, the patient will continue an observational evaluation at this time with monitoring of her clinical status, vital signs, and her noninvasive studies. Her medications will have to be adjusted accordingly. Again as she is an elderly frail and debilitated appearing patient she does not appear to be an ideal candidate at this time for additional invasive evaluation or care which as noted above would have to be taken into consideration with her quality of life and her multiple diagnoses including her history of carcinoma, etc. The above was discussed with her. At the moment she is agreeable to continuing medical management and noninvasive valuation. She states she would not want to proceed with additional invasive evaluation-at least not at this time. This note was generated using a voice recognition system and there may be incorrect words, spelling or punctuation that were not noted when reviewing the office note prior to saving. HPI Consult Data Date of Consult: 11/23/21 HPI Narrative HPI Narrative: KATEY CROSS, is a 81 year old white female who presents for cardiovascular consultation based upon findings of atrial fibrillation/flutter with RVR with progressive shortness of breath/dyspnea and fatigue superimposed upon a history of underlying CAD, status post PCI, status post CABG, ischemic mediated cardiomyopathy, chronic systolic CHF, valvular heart disease, cardiac dysrhythmia with a history of paroxysmal atrial fibrillation and paroxysmal ventricular tachycardia, status post ICD placement, hyperlipidemia, hypertension, diabetes mellitus, COPD, thyroid disorder, breast carcinoma, and macular degeneration with chronic blindness . The patient states that she noted over the last few days her heart rate going faster. As this occurred she does not recall any chest discomfort but states she became progressively short of breath and more tired and fatigued. She subsequently presented to the [facility] emergency department and at that time also complained of ongoing nausea and emesis. She was evaluated in the emergency department and noted to have abnormal troponin I levels-which have subsequently decreased-abnormal hepatic transaminases, an ECG that demonstrated atrial fibrillation/flutter with PVCs with an incomplete left bundle branch block pattern and nonspecific ST and T wave abnormality, and a chest x-ray which was reported by radiologist demonstrating mild pulmonary vascular congestion. She was subsequently placed in the PCU for further inpatient evaluation and care. With respect to her cardiac dysrhythmias she was placed on additional medical therapy with IV diltiazem to assist with rate control. She states she had a rough night . She does not recall any ongoing chest discomfort. She reiterates her concerns of her shortness of breath and fatigue as well as subsequently the development of nausea and emesis. She denies any orthopnea or PND or the development of peripheral pitting edema. She denies any near-syncope or syncope. She states her ICD has not discharged. Her troponin I levels were elevated at 312 with a subsequent increase to 316 and then a decline to 235. Her WBC has increased to 19.3. Her BUN and creatinine levels have also increased to 29 and 1.25. Her hepatic transaminase levels have been elevated. It also appears that her T4 and TSH levels were elevated. Her cardiac rhythm has remained atrial fibrillation/flutter. She is pending further cardiovascular evaluation with a transthoracic echocardiogram. She was also requested to have a right upper quadrant ultrasound to evaluate her hepatic system. [facility] Medical History (Updated 11/23/21 @ 09:[address] Jimmy Rojas MD) Acute PA, inferoposterior wall, subsequent episode of care Anemia Angina pectoris Atherosclerotic heart disease of [place] coronary artery without angina pectoris Atrial fibrillation Blindness of both eyes Body mass index (bmi) 26.0-26.9, adult Breast cancer Cancer Chronic systolic congestive heart failure COPD (chronic obstructive pulmonary disease) Debility Diabetes mellitus Essential hypertension Former smoker Hepatic insufficiency History of steroid therapy HLD (hyperlipidemia) HTN (hypertension) Hypothyroidism Implantable cardioverter-defibrillator (ICD) in situ Irregular heart beat Ischemic cardiomyopathy Monomorphic ventricular tachycardia Non-ST elevation (NSTEMI) myocardial infarction Nonrheumatic mitral valve regurgitation Nonrheumatic tricuspid (valve) insufficiency Old myocardial infarction Pacemaker Palpitations Paroxysmal a-fib Paroxysmal SVT (supraventricular tachycardia) Pre-syncope Presence of biventricular automatic cardioverter/defibrillator (AICD) Restless legs Right leg pain Shortness of breath Shortness of breath Syncope Ventricular tachyarrhythmia Ventricular tachycardia (paroxysmal) Wears hearing aid in both ears Home Medications duloxetine 60 mg PO DAILY 03/24/16 [History Last Taken 11/28/18] isosorbide mononitrate 120 mg PO DAILY 03/24/16 [History Last Taken 11/28/18] levothyroxine 75 mcg PO DAILY 03/24/16 [History Last Taken 11/28/18] omeprazole 20 mg PO DAILY 03/24/16 [History Last Taken 11/28/18] vitamins A,C,D-ymai-pmpliz 1 ea PO QHS 03/24/16 [History Last Taken 11/27/18] cholecalciferol (vitamin D3) 50,000 unit PO MO 09/18/16 [History Last Taken 11/25/18] bumetanide 0.5 mg tablet 0.5 mg PO DAILY 12/03/17 [History Last Taken 11/28/18] exemestane 25 mg tablet 25 mg PO DAILY 12/03/17 [History Last Taken 11/28/18] pravastatin 40 mg tablet 40 mg PO QHS 12/03/17 [History Last Taken 11/27/18] pregabalin 100 mg capsule 100 mg PO QHS 12/03/17 [History Last Taken 11/27/18] albuterol sulfate [ProAir HFA] 2 puff INHALATION TID PRN 10/11/18 [History Last Taken 11/26/18] donepezil [Aricept] 5 mg PO DAILY 10/11/18 [History Last Taken 11/28/18] ferrous sulfate 325 mg PO BIDCM 10/11/18 [History Last Taken 11/28/18] gabapentin [Neurontin] 100 mg PO QHS 10/11/18 [History Last Taken 11/27/18] loratadine [Claritin Liqui-Gel] 10 mg PO QHS 10/11/18 [History Last Taken 11/27/18] multivitamin with iron 1 tab PO BID 10/11/18 [History Last Taken 11/28/18] palbociclib [Ibrance] 125 mg PO DAILY 10/11/18 [History Last Taken 11/28/18] propylene glycol [Systane Balance] 1 drp RIGHT EYE BID 10/11/18 [History Last Taken 11/28/18] trazodone 50 mg PO QHS 10/11/18 [History Last Taken 11/27/18] [] 160 mg PO DAILY 11/19/18 [History Last Taken 11/28/18] amlodipine 5 mg PO DAILY 11/19/18 [History Last Taken 11/28/18] melatonin 10 mg PO QHS 11/19/18 [History Last Taken 11/27/18] metoprolol tartrate 37.5 mg PO BID 11/19/18 [History Last Taken 11/28/18] apixaban [Eliquis] 2.5 mg PO BID 11/28/18 [History Last Taken 11/28/18] aspirin 81 mg PO DAILY 11/28/18 [History Last Taken 11/28/18] hydrochlorothiazide 25 mg PO DAILY 11/28/18 [History Last Taken 11/28/18] pentoxifylline 400 mg PO BID 11/28/18 [History Last Taken 11/28/18] potassium chloride [Klor-Con M20] 60 meq PO DAILY 11/28/18 [History Last Taken 11/28/18] Allergy/AdvReac Type Severity Reaction Status Date / Time No Known Allergies Allergy Verified 11/22/21 21:08 Family History Son Asthma Father Cancer Mother Cancer Brother Cancer Surgical History Aortocoronary bypass status (~12/08/02) History of coronary artery stent placement History of mastectomy Postsurgical percutaneous transluminal coronary angioplasty (PTCA) status Presence of stent in coronary artery (~11/30/01) S/P implantation of automatic cardioverter/defibrillator (AICD) Social History (Updated 11/22/21 @ 22:[address] Sindi Parker MD) household members: none Smoking Status: Former smoker alcohol intake: never substance use type: does not use ROS Constitutional Constitutional: Reports fatigue Eyes Eyes: Reports blindness ENT HEENT: Reports as per HPI Cardiovascular Cardiovascular: Reports dyspnea at rest, fatigue, palpitations, rapid heart rate and vomiting Respiratory/Chest Respiratory/Chest: Reports dyspnea Gastrointestinal Gastrointestinal: Reports nausea and vomiting Genitourinary Genitourinary: Reports as per HPI Musculoskeletal Musculoskeletal: Reports as per HPI Integumentary Integumentary: Reports as per HPI Neurologic Neurologic: Reports as per HPI Psychiatric Psychiatric: Reports as per HPI Physical Exam Narrative This is a frail and debilitated appearing 81-year-old white female Const alert and oriented x3 Orientation / Consciousness: awake HEENT normocephalic, head/scalp atraumatic and hearing grossly normal bilaterally Eyes PERRL, EOMs intact bilaterally and conjunctivae normal Neck full ROM, supple and no JVD Resp Auscultation: diminished lung sounds diffuse Cardio Rhythm: abnormal rhythm irregularly irregular Heart Sounds: S1 normal, S2 normal and murmur systolic II/ harsh mid left sternal border and LVOT GI normal to inspection, nondistended, normoactive bowel sounds Extremity no pedal edema Skin no rashes or lesions noted Neuro oriented x3 and moves all extremities Risk Stratification Risk Stratification Applicable: Yes Age >/= 65: Yes >/= 3 CAD Risk Factors (HTN, HLD, DM, family hx of CAD, or current smoker): Yes Aspirin Use in the Past 7 Days: Yes Severe Angina (>/= episodes in 24 hours): No EKG ST Changes >/= 0.5mm: Yes Positive Cardiac Marker: Yes YLOY Risk Stratification Score: 5 YOLY % Risk: 25% Risk Procedure Criteria Type of Procedure Procedure Type: Elective Elective Risks - COVID COVID Risk Discussion: The surgeon/proceduralist and patient have discussed in detail the risk of exposure to and/or potential harm posed by the COVID-19 virus with having a surgery/procedure at this time versus the risk of delaying the surgery/procedure. It is not possible to know either the risk of delaying the surgery or procedure or chance of getting an infection with perfect accuracy, but a joint decision was made between the patient and the surgeon/proceduralist to proceed at this time with the scheduled surgery/procedure as indicated on the consent form. Objective Data Vital Signs: Vital Signs Temp Pulse Resp BP Pulse Ox 97.3 F L 107 H 20 H 114/87 H 95 11/23/21 06:20 11/23/21 07:00 11/23/21 06:20 11/23/21 06:20 11/23/21 07:16 Oxygen Flow Rate (L/min) 2 Oxygen Delivery Method Nasal Cannula Weight: 128 lb 11.999 oz Body Mass Index (BMI) 22.1 Intake & Output: Intake and Output for Last 24 Hours 11/21/21 11/22/21 11/23/21 23:59 23:59 23:59 Intake Total 504.59 / 627.09 360.41 / 360.41 Balance 504.59 / 627.09 360.41 / 360.41 Lab / Micro Data Result Diagrams: 11/23/21 05:20 11/23/21 05:20 Labs: Laboratory Results - last 24 hr 11/22/21 21:20: WBC 15.0 H, RBC 2.76 L, Hgb 10.7 L, Hct 30.5 L, MCV 110.5 H, MCH 38.8 H, MCHC 35.1, RDW Std Deviation 60.6 H, RDW Coeff of Ella 15.0 H, Plt Count 276, MPV 11.9, Immature Gran % (Auto) 0.700, Neut % (Auto) 82.5 H, Lymph % (Auto) 6.6 L, Stanley % (Auto) 9.0, Eos % (Auto) 0.7, Baso % (Auto) 0.5, Absolute Neuts (auto) 12.4 H, Absolute Lymphs (auto) 0.99, Nucleated RBC % 0.9 11/22/21 21:20: Sodium 137, Potassium 3.2 L, Chloride 101, Carbon Dioxide 26.0, Anion Gap 10, BUN 22 H, Creatinine 0.84, Estim Creat Clear Calc 46.13, Est GFR (MDRD) Af Amer 83, Est GFR (MDRD) Non-Af 69, BUN/Creatinine Ratio 26.1 H, Glucose 181 H, Calcium 9.4, Troponin I High Sens 312 H* 11/22/21 21:20: Magnesium 1.8 11/22/21 23:43: Troponin I High Sens 316 H* 11/23/21 05:20: WBC 19.3 H, RBC 2.88 L, Hgb 11.5 L, Hct 32.4 L, MCV 112.5 H, MCH 39.9 H, MCHC 35.5, RDW Std Deviation 61.8 H, RDW Coeff of Ella 14.9 H, Plt Count 350, MPV 12.4 H, Immature Gran % (Auto) 1.400 H, Neut % (Auto) 83.3 H, Lymph % (Auto) 4.6 L, Stanley % (Auto) 10.2 H, Eos % (Auto) 0.1, Baso % (Auto) 0.4, Absolute Neuts (auto) 16.1 H, Absolute Lymphs (auto) 0.88, Nucleated RBC % 1.7, Differential Comment SCANNED, Diff Path Review December, Macrocytosis 2+, Tear Drop Cells RARE, Ovalocytes RARE 11/23/21 05:20: Sodium 135 L, Potassium 4.1, Chloride 101, Carbon Dioxide 22.0, Anion Gap 12, BUN 29 H, Creatinine 1.25 H, Estim Creat Clear Calc 31.00, Est GFR (MDRD) Af Amer 53 L, Est GFR (MDRD) Non-Af 44 L, BUN/Creatinine Ratio 23.2 H, Glucose 222 H, Calcium 8.7, Total Bilirubin 3.00 H, AST 943 H, ALT 809 H, Alkaline Phosphatase 45, Total Protein 7.1, Albumin 4.0, Globulin 3.1, Albumin/Globulin Ratio 1.3, Triglycerides 85, Cholesterol 76, LDL Cholesterol 29, VLDL Cholesterol 17, HDL Cholesterol 30 L, TSH 5.17 H 11/23/21 05:20: Hemoglobin A1c 5.6 11/23/21 05:20: Troponin I High Sens 235 H* 11/23/21 05:20: Free T4 1.53 H 11/23/21 05:20: GGT 51, Lactate Dehydrogenase 670 H 11/23/21 05:20: Total Creatine Kinase 56 11/23/21 05:20: Phosphorus 4.9 11/23/21 06:59: POC Glucose 215 H Rhythm Strip Rhythm Strip: A-fib Rate: 144 Ectopy: PVC(s) Cardiology Labs/Tests 11/22/21 21:20: WBC 15.0 H, RBC 2.76 L, Hgb 10.7 L, Hct 30.5 L, MCV 110.5 H, MCH 38.8 H, MCHC 35.1, Plt Count 276, MPV 11.9, Immature Gran % (Auto) 0.700, Neut % (Auto) 82.5 H, Lymph % (Auto) 6.6 L, Stanley % (Auto) 9.0, Eos % (Auto) 0.7, Baso % (Auto) 0.5, Absolute Neuts (auto) 12.4 H, Nucleated RBC % 0.9 11/22/21 21:20: Sodium 137, Potassium 3.2 L, Chloride 101, Carbon Dioxide 26.0, Anion Gap 10, BUN 22 H, Creatinine 0.84, Est GFR (MDRD) Af Amer 83, Est GFR (MDRD) Non-Af 69, BUN/Creatinine Ratio 26.1 H, Glucose 181 H, Calcium 9.4 11/22/21 21:20: Magnesium 1.8 11/23/21 05:20: WBC 19.3 H, RBC 2.88 L, Hgb 11.5 L, Hct 32.4 L, MCV 112.5 H, MCH 39.9 H, MCHC 35.5, Plt Count 350, MPV 12.4 H, Immature Gran % (Auto) 1.400 H, Neut % (Auto) 83.3 H, Lymph % (Auto) 4.6 L, Stanley % (Auto) 10.2 H, Eos % (Auto) 0.1, Baso % (Auto) 0.4, Absolute Neuts (auto) 16.1 H, Nucleated RBC % 1.7 11/23/21 05:20: Sodium 135 L, Potassium 4.1, Chloride 101, Carbon Dioxide 22.0, Anion Gap 12, BUN 29 H, Creatinine 1.25 H, Est GFR (MDRD) Af Amer 53 L, Est GFR (MDRD) Non-Af 44 L, BUN/Creatinine Ratio 23.2 H, Glucose 222 H, Calcium 8.7, Total Bilirubin 3.00 H, Triglycerides 85, Cholesterol 76, LDL Cholesterol 29, VLDL Cholesterol 17, HDL Cholesterol 30 L 11/23/21 05:20: Hemoglobin A1c 5.6 11/23/21 05:20: Phosphorus 4.9 Rhythm: Atrial fibrillation/flutter EKG: As noted above ECHO: 11-19-2018 Interpretation Summary Mildly dilated left ventricle. The estimated ejection fraction is 40-45 %. There are regional wall motion abnormalities as specified. Stage 2 diastolic dysfunction. The left atrium is moderately enlarged. Mild (1+) eccentric mitral valve insufficiency. Mild (1+) tricuspid valve insufficiency. Right ventricular systolic pressure estimated to be 36 mmHg. Compared to echo report dated 09/11/2018, no appreciable changes noted. Stress Test: 11-13-2017 Stress Test Report Pharmacologic myocardial perfusion stress test. 77-year-old lady with a history of ischemic cardiomyopathy. Stress protocol: EKG demonstrates normal sinus rhythm with a rate of 64 bpm normal intervals and noted resting blood pressure is 130/62 meters of mercury. 0.4 mg regadenoson was infused per usual protocol followed by rapid intravenous saline flush injection continuous EKG monitoring was performed. Patient maintained sinus rhythm throughout the recording. The maximum heart rate attained was 76 bpm which was 52% of maximum predicted heart rate the maximum workload was 1 metabolic equivalent. Myocardial perfusion protocol. 11.2 mCi of technetium 99m sestamibi was injected at rest. 0.4 mg regadenoson was infused per usual protocol peak infusion 33.7 mCi of technetium 99m sestamibi was injected. Stress images were obtained stress and rest images were reconstructed and compared in the short axis vertical long and horizontal long axis. Gated images were also obtained. Perfusion SPECT analysis. Review of the stress images demonstrate normal uptake of tracer noted in the anterior septum anterior wall and anterolateral wall. There is a large defect involving the entire inferior wall from base to apex. The resting images demonstrate a similar patent. The above is suggestive of a previous extensive inferior infarct. No improvement is noted to suggest reversibility or ischemia. Gated SPECT analysis. The gated ejection fraction is noted to be 44% with inferior hypokinesis present. Review of the raw data also demonstrates a possible mass seen within the left chest cavity. Would recommend that this be further investigated with a CT scan. Of note is the fact that patient has a history of breast cancer. Conclusion: Pharmacologic myocardial perfusion stress test with evidence of previous inferior infarct. Ischemic cardiomyopathy. No ischemia noted. Mass noted within left chest cavity. Cardiac Cath: 04-21-2010: [facility] Left ventricle: LVEF 50 to 55% Left main coronary artery: Patent LAD: Mid 85% stenosis LCx: OM1: Proximal to mid: 90% stenosis RCA: Proximal: 85% stenosis; distal: 75% stenosis DAVIS to the LAD: Patent SVG to OM1: Patent SVG to the PDA: Patent CT Surgery: 12-08-2002: [place], [place] DAVIS to the LAD SVG to the OM SVG to the right PDA ICD: [employer]: Model number: [id number]: Serial number: [id number]: Implant date: 10-24-2018 Radiography Diagnostic Testing: Radiology Impression Chest X-Ray 11/22/21 21:24 IMPRESSION: 1. Mild cardiomegaly and likely mild pulmonary vascular congestion. No other evidence of acute cardiopulmonary disease. Electronically Signed: Joe Gillis DO at 22:38 EDT , Abdomen Ultrasound 11/23/21 07:32 IMPRESSION: Fatty infiltration of the liver. Small amount of ascites and pericholecystic fluid. Right renal cyst. Electronically Signed: Sal Hui MD at 9:12 EDT ,
[2021-11-23] MEDS: Glucerna Shake 120 ML LIQUID PO (10:11)
[2021-11-23] MEDS: hydroCHLOROthiazide 25 MG Tablet PO (10:12)
[2021-11-23] MEDS: Metoprolol Tartrate 50 MG Tablet PO (10:12)
[2021-11-23] MEDS: amLODIPine 5 MG Tablet PO (10:12)
[2021-11-23 11:21] LABS: Bedside Glucose 196 mg/dL (74-106)
[2021-11-23 12:35] LABS: Pathologist Review Reviewed
--- NOTE | 2021-11-23 12:53 | CASEMGMT ---
Social Work SW placed call to [facility]. Pt has services through the [facility] Waiver program and Poornima Ferrari is Product Support Engineer ([phone]). Pt has an emergency response system, [employer] and [employer] through [employer] 8 hours/week. SW will update CM when pt is ready for discharge. TERESA Livingston
--- NOTE | 2021-11-23 13:00 | CASEMGMT ---
DARCY MOSER assessment: Face to Face with patient for initial transition planning/care coordination assessment. DARCY MOESR introduced self and role at [facility], pt voices understanding but is very distracted by nausea/pain. Carola TAVERAS is aware. Pt is on 2L nc in no distress. Pt is A/Ox4 but does not answer all questions at this time d/t pain/nausea. Care providers, pharmacy, and demographics verified. Presentation: pt c/o weakness, SOB, CP since yesterday Admitting dx: PAF w/ RVR, elev trop PCP: Mirna Specialists: Bob, cardio Preferred Pharmacy: [facility] Prescription Benefit: [facility] Living Will/HPOA: Pt has LW/HPOA and is aware that it's on file at [facility]. Pt's son, David Lomax, is listed as HPOA. LNOK: David Lomax, son/HPOA Living Arrangements: Pt lives alone in 1 story apt with no steps. Pt is normally independent with ADL's. Transportation: Pt does not drive neither does son. Pt states has an aide that assists with groceries/transport and pt has also used [facility] van in past. DME/HHC: Pt has a walker and medical alert button. Pt states does not wear home oxygen currently but does have equipment at home from [facility] previously. Pt has CM, Poornima Ferrari, thru [facility] who states that pt also has [employer] meals and an aide thru [employer] for 8 hours/week. Pt states has been to [facility] in past and she also used to live at [facility]. Pt unable to state plan for d/c at this time. Pt is retired. Pt states does not smoke cigarettes or drink ETOH. Pt states no further concerns/needs. CM to follow for therapy notes and any further discharge planning/needs. Advices pt to ask for CM if any further questions/concerns/needs arise, voices understanding. Pt Goal: Home Plan: TBD, pending therapy evals. SStaten DARCY MOSER
--- NOTE | 2021-11-23 13:04 | CPS ---
started by nursing
[2021-11-23] MEDS: ALPRAZolam 0.25 MG Tablet PO (13:47)
[2021-11-23 16:26] LABS: Bedside Glucose 170 mg/dL (74-106)
[2021-11-23] MEDS: Lactated Ringers 500 ML 999 ML IV (18:51)
[2021-11-23 19:57] LABS: Absolute Lymphocyte Count 0.71 X10^3/uL (0.83-4.51); Absolute Neutrophil Count 25.2 X10^3/uL (2.0-7.7); Basophil# 0.07 X10^3/uL; Basophil% 0.2 % (0-1); Hematocrit 28.8 % (37-47); Hemoglobin 10.2 g/dL (12.0-15.0); Lymphocyte # 0.71 X10^3/ul (0.83-4.51); Lymphocyte % 2.4 % (19-41); Mean Corp Hgb Conc 35.4 g/dL (32-36); Mean Corpuscular Hgb 38.9 pg (27.0-32.0); Mean Corpuscular Volume 109.9 fL (81-99); Mean Platelet Vol. 12.9 fl (6.2-12.0); Monocyte# 2.71 X10^3/uL; Monocyte% 9.3 % (0-10); NRBC Flagged by Analyzer 1.2 % (0-5); Neutrophil # 25.15 X10^3/uL (2.7-7.7); Neutrophil % 86.5 % (47-70); POSITIVE DIFFERENTIAL YES; POSITIVE MORPHOLOGY YES; Platelet Count 268 K/mm3 (150-450); RBC Distribution Width CV 14.9 % (11.6-14.6); RBC Distribution Width SD 58.4 fl (35.1-43.9); Red Blood Count 2.62 M/mm3 (4.2-5.4); White Blood Count 29.1 K/mm3 (4.4-11.0)
[2021-11-23 20:03] LABS: Differential Indicated SCAN CRITERIA MET
[2021-11-23 20:50] LABS: Anisocytosis 1+; Differential Comment SEE COMMENTS; Macrocytosis 1+; Platelet Estimate ADEQUATE (ADEQ); Red Cell Morphology N CHROM NORMAL (NORM C&C)
[2021-11-23] MEDS: MELATONIN 10 MG TABLET PO (21:04)
[2021-11-23 21:15] LABS: Bedside Glucose 189 mg/dL (74-106)
[2021-11-24] VITALS (9 sets, daily range): BP systolic 126–141; BP diastolic 62–81; PULSE 69–108; RESP 18; TEMP 36.3–36.6; O2SAT 93–97
[2021-11-24] MEDS: Menthol/Lanolin/Calamine/Znox 113 GM Tube 1 APPLIC TOPICAL ×3 (01:06→21:18)
[2021-11-24] MEDS: ALPRAZolam 0.25 MG Tablet PO (04:46)
[2021-11-24 04:55] LABS: Absolute Lymphocyte Count 0.36 X10^3/uL (0.83-4.51); Absolute Neutrophil Count 33.8 X10^3/uL (2.0-7.7); Basophil# 0.09 X10^3/uL; Basophil% 0.2 % (0-1); Hematocrit 30.7 % (37-47); Hemoglobin 10.5 g/dL (12.0-15.0); Lymphocyte # 0.36 X10^3/ul (0.83-4.51); Mean Corp Hgb Conc 34.2 g/dL (32-36); Mean Corpuscular Hgb 38.6 pg (27.0-32.0); Mean Corpuscular Volume 112.9 fL (81-99); Monocyte# 1.98 X10^3/uL; Monocyte% 5.4 % (0-10); NRBC Flagged by Analyzer 1.2 % (0-5); Neutrophil % 92.3 % (47-70); POSITIVE COUNT YES; POSITIVE DIFFERENTIAL YES; POSITIVE MORPHOLOGY YES; Platelet Count 293 K/mm3 (150-450); RBC Distribution Width CV 15.2 % (11.6-14.6); RBC Distribution Width SD 62.2 fl (35.1-43.9); Red Blood Count 2.72 M/mm3 (4.2-5.4); White Blood Count 36.7 K/mm3 (4.4-11.0)
[2021-11-24 05:18] LABS: Differential Indicated SCAN CRITERIA MET
[2021-11-24 06:04] LABS: Atypical Lymphocyte 2+ %
[2021-11-24 06:05] LABS: Anisocytosis 1+; Differential Comment SCANNED; Macrocytosis 2+
[2021-11-24 06:09] LABS: ALB/GLOB Ratio 1.2 RATIO (0.9-2.4); AST(SGOT) 5860 U/L (15-37); Alanine Aminotransfer ALT/SGPT 2985 U/L (13-56); Albumin, Serum 3.6 g/dL (3.2-5.0); Alkaline Phosphatase 48 U/L (45-117); Anion Gap 11 (5-15); BUN 50 mg/dL (7-18); BUN/Creat Ratio 23.8 RATIO (10-20); Chloride 102 mmol/L (98-107); EST Glomerular Filtration Rate 24 mL/min (>60); Est Glom Filt Rate - Afr Amer 29 mL/min (>60); Estimated Creatinine Clearance 18.45 ml/min; Globulin 3.1 g/dL (2.2-4.2); Glucose 192 mg/dL (74-106); Potassium 6.2 mmol/L (3.5-5.1); Protein, Total 6.7 g/dL (6.4-8.2); Sodium Level 130 mmol/L (136-145)
[2021-11-24] MEDS: Insulin Lispro 100 UNIT/ML INSULN.PEN SC ×3 (06:46→21:19)
[2021-11-24 06:50] LABS: Bedside Glucose 243 mg/dL (74-106)
[2021-11-24 07:34] LABS: Anion Gap 9 (5-15); BUN 53 mg/dL (7-18); BUN/Creat Ratio 26.6 RATIO (10-20); Calcium,Total 8.9 mg/dL (8.5-10.1); Chloride 100 mmol/L (98-107); Creatinine, Serum 1.99 mg/dL (0.55-1.02); EST Glomerular Filtration Rate 26 mL/min (>60); Est Glom Filt Rate - Afr Amer 31 mL/min (>60); Estimated Creatinine Clearance 19.47 ml/min; Glucose 219 mg/dL (74-106); Potassium 5.7 mmol/L (3.5-5.1); Sodium Level 131 mmol/L (136-145)
[2021-11-24] MEDS: Sodium Polystyrene Sulfonate 15 GM/60 ML UDC 30 GM PO (08:50)
[2021-11-24] MEDS: Glycerin/Hypromellose/PEG400 15 ml Bottle 1 DRP RIGHT EYE ×2 (09:04→21:18)
--- NOTE | 2021-11-24 10:03 | CASEMGMT ---
Addendum entered by Romana Dejesus 11/24/21 11:39: Social Work Return call from Shawna at [facility]iaison, Meaghan will meet with pt and son at 12:45 today. SW entered pt room. Pt sleeping. Pt brother and niece in room. Niece stating son is home resting and she will pick him up in a bit and have him to the hospital by 12:45. Charge nurse and bedside nurse aware of time of consultation. TERESA Livingston Original Note: Social Work SW informed that order for hospice was initiated last evening. Nursing notified hospice at that time and attempted to fax clinicals but the number is not working. SW placed call to [facility] and spoke to Ashley who states they do not have a record of referral. SW made referral and obtained different fax number. Clinicals faxed and did go through. Nursing reports pt's son was her through the night and has now gone home to rest and recharge his hearing aids. Hospice is aware of son's hearing impairment and will attempt to contact son throughout the day for appointment. Ashley from Hospice states they will contact this worker when appointment has been made with pt son. SW to continue to follow. TERESA Livingston
[2021-11-24 11:21] LABS: Bedside Glucose 137 mg/dL (74-106)
[2021-11-24 11:29] LABS: Pathologist Review Reviewed
[2021-11-24 11:30] LABS: Pathologist Review Reviewed
[2021-11-24] MEDS: DULoxetine Hcl 60 MG Capsule PO (11:40)
[2021-11-24] MEDS: Bumetanide 0.5 MG Tablet PO (11:40)
[2021-11-24] MEDS: Donepezil HCl 5 MG Tablet PO (11:40)
[2021-11-24] MEDS: Ferrous Sulfate 325 MG Tablet PO (11:40)
--- NOTE | 2021-11-24 14:22 | CASEMGMT ---
Social Work Hospice Liasion met with family and family choosing to sign papers with hospice at this time. TOYIN met with pt son who is requesting that pt go to [facility] with hospice services. Phone call to Olga at [facility] and they do have beds available. Referral faxed. TOYIN will await determination of acceptance from [facility]. TERESA Livingston
--- NOTE | 2021-11-24 14:29 | PCM.PN.HOSP ---
Subjective Subjective Seen and examined in locomotive engineer electric. Discussed with the patient's son present in the room. Patient gets short of breath on minimal exertion and laying flat. Denies chest pain or pressure. Has poor memory/amnesia, dementia. Labs discussed with the patient's son including leukocytosis, kidney dysfunction, hyperglycemia, acute liver injury. No fever Objective Data Objective Data Vital Signs: Vital Signs Temp Pulse Resp BP Pulse Ox 97.8 F 86 18 126/81 H 97 11/24/21 08:35 11/24/21 11:00 11/24/21 08:35 11/24/21 09:06 11/24/21 08:35 Oxygen Flow Rate (L/min) 2 Oxygen Delivery Method Nasal Cannula Weight: 128 lb 8.472 oz Body Mass Index (BMI) 22.1 Intake & Output: Intake and Output for Last 24 Hours 11/22/21 11/23/21 11/24/21 23:59 23:59 23:59 Intake Total 504.59 / 627.09 1633.83 / 1633.83 230 / 230 Balance 504.59 / 627.09 1633.83 / 1633.83 230 / 230 Lab / Micro Data Result Diagrams: 11/24/21 04:09 11/24/21 07:16 Labs: Laboratory Results - last 24 hr 11/23/21 16:19: POC Glucose 170 H 11/23/21 19:45: WBC 29.1 H, RBC 2.62 L, Hgb 10.2 L, Hct 28.8 L, MCV 109.9 H, MCH 38.9 H, MCHC 35.4, RDW Std Deviation 58.4 H, RDW Coeff of Ella 14.9 H, Plt Count 268, MPV 12.9 H, Immature Gran % (Auto) 1.600 H, Neut % (Auto) 86.5 H, Lymph % (Auto) 2.4 L, [place] % (Auto) 9.3, Eos % (Auto) 0.0, Baso % (Auto) 0.2, Absolute Neuts (auto) 25.2 H, Absolute Lymphs (auto) 0.71 L, Nucleated RBC % 1.2, Differential Comment SEE COMMENTS, Diff Path Review Reviewed, Platelet Estimate ADEQUATE, RBC Morphology N CHROM, Anisocytosis 1+, Macrocytosis 1+ 11/23/21 20:57: POC Glucose 189 H 11/24/21 04:09: WBC 36.7 H*, RBC 2.72 L, Hgb 10.5 L, Hct 30.7 L, MCV 112.9 H, MCH 38.6 H, MCHC 34.2, RDW Std Deviation 62.2 H, RDW Coeff of Ella 15.2 H, Plt Count 293, MPV 13.0 H, Immature Gran % (Auto) 1.100 H, Neut % (Auto) 92.3 H, Lymph % (Auto) 1.0 L, [place] % (Auto) 5.4, Eos % (Auto) 0.0, Baso % (Auto) 0.2, Absolute Neuts (auto) 33.8 H, Absolute Lymphs (auto) 0.36 L, Nucleated RBC % 1.2, Differential Comment SCANNED, Diff Path Review Reviewed, Atypical Lymphocytes 2+, Anisocytosis 1+, Macrocytosis 2+ 11/24/21 04:09: Sodium 130 L, Potassium 6.2 H*, Chloride 102, Carbon Dioxide 17.0 L, Anion Gap 11, BUN 50 H, Creatinine 2.10 H, Estim Creat Clear Calc 18.45, Est GFR (MDRD) Af Amer 29 L, Est GFR (MDRD) Non-Af 24 L, BUN/Creatinine Ratio 23.8 H, Glucose 192 H, Calcium 9.0, Total Bilirubin 3.50 H, AST 5860 H, ALT 2985 H, Alkaline Phosphatase 48, Total Protein 6.7, Albumin 3.6, Globulin 3.1, Albumin/Globulin Ratio 1.2 11/24/21 06:44: POC Glucose 243 H 11/24/21 07:16: Sodium 131 L, Potassium 5.7 H, Chloride 100, Carbon Dioxide 22.0, Anion Gap 9, BUN 53 H, Creatinine 1.99 H, Estim Creat Clear Calc 19.47, Est GFR (MDRD) Af Amer 31 L, Est GFR (MDRD) Non-Af 26 L, BUN/Creatinine Ratio 26.6 H, Glucose 219 H, Calcium 8.9 11/24/21 11:14: POC Glucose 137 H Micro: Microbiology 11/23/21 18:30 Stool Stool Occult Blood (CRUZ) - Final Occult Blood Positive Rhythm Strip Rhythm Strip: A-fib Rate: 144 Ectopy: PVC(s) Physical Exam Narrative Seen and examined Patient is lethargic. Does not remember well. Yesterday she had 2 bloody bowel movements but hemoglobin does not drop. No fever noticed but patient has severe leukocytosis. Stool for occult blood positive Physical Examination: General: Mild lethargy. Oriented x2. Slow to respond. HEENT: Atraumatic, PERRLA, EOMI, Normocephalic Oral: Oral mucosa dry. No Gingival or Mucosal Lesions/ Ulcerations Neck: Supple, No JVD, Negative Carotid Bruits Lungs: Air entry diminished in bilateral lung bases. Cardiovascular: Sinus rhythm with multiple PVCs, irregular heartbeat. CABG scar. No appreciable murmur Abdomen: Bowel Sounds Present, Soft, Non Tender, Non-Distended. No palpable mass. Liver not enlarged : No renal angle tenderness. No suprapubic tenderness. Extremities: No edema, Capillary Refill Less than 3 Seconds Skin: No rashes, No breakdown Musculoskeletal: Mild to moderate muscle atrophy extremities. No Tenderness to Palpation of Joints or Extremities Neurological: Cranial nerves II-XII grossly intact, DTR 2+/4. Psych/Mental Status: Flat affect. Dementia Assessment & Plan Assessment/Plan (1) Atrial fibrillation with rapid ventricular response: (2) Elevated troponin: PLAN: The patient is an 81 y/o F with multiple comorbidities admitted with shortness of breath, fatigue, dyspnea on exertion and chest discomfort. On evaluation in ED was found to be A. fib with RVR. #1. Paroxsymal atrial fibrillation with RVR: Patient is admitted in PCU. Twelve-lead EKG shows A. fib with RVR. Multiple PVCs, incomplete left bundle branch block with nonspecific ST-T abnormality. Water Quality Assistant consulted. Patient on metoprolol, Cardizem drip and Eliquis. laboratory monitor shows sinus tachycardia with multiple PVCs. 4/: Heart rate is controlled. #2. Non-NSTEMI, unclear type I, primary event or type II, due to increased demand from A. fib RVR/hyperthyroidism, : Patient seen by art display maker. Currently on medical management to treat underlying precipitating factor, A. fib with RVR. Correct hypokalemia and other underlying electrolyte abnormality. /: Patient is hyperkalemic. Potassium supplement discontinued. 1 dose Kayexalate given. #3. 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 fib with RVR with history of coronary artery status post PCI and CABG, severe valvular heart disease, MR, TR and moderate to severe pulmonary hypertension : Chest x-ray individually reviewed shows increased pulmonary vascular congestion status post AICD placement, device interrogation requested, 11/19/2018 echocardiogram with mildly dilated LV, EF 40 to 45%, regional wall motion abnormalities noted, stage II diastolic dysfunction, moderately enlarged LA, mild MVI, mild TVI, RVSP 36 mmHg reportedly. Continue aspirin, Eliquis, statin, metoprolol, bumex, not on GERRY inhibitor or ARB. On 11/23/2021, 2D echo shows EF 25% decrease from the previous 1 of 40 to 45%. Moderately dilated RV, global RV systolic dysfunction, LA mildly enlarged, and mitral valve thickening and calcification. At least severe 3+ MR, 3+ TR with mild diffuse intimal thickening. RVSP 52?65 moderate to severe pulmonary hypertension 11/24: BP is 126/81 better. Continue supportive medications Bumex, changed to IV. Continue other medications as permitted by her blood pressure #4.COPD:maintain on oxygen with wean as tolerated to room air, continue budesonide duonebs given tachycardia upon presentation, PRN albuterol, HOB, IS parameters. #5. Diabetes mellitus type II: Accu-Cheks insulin is covered with below sliding scale #6. Hypertension: Blood pressure was low on 11/23 in systolic 90s. Mild improvement on 11/24 #7. Hyperlipidemia: Continue home statin regimen. #8. Currently hyperthyroidism with history of hypothyroidism: TSH 5.17 and free T4 1.53 elevated suggestive of hyperthyroidism although patient has history of hypothyroidism. At home, the patient on Synthroid 75 mcg daily, discontinued. Thyroid function test difficult to interpret as patient is acutely sick and usually patient of hyperthyroidism due to high Synthroid dose should have low TSH and high free T4. Repeat thyroid function test after 1 week on baseline. #9. Acute liver injury exact etiology unclear: Patient denies any heavy alcohol use, history of new medication or herbal medication. Denies history of chronic hepatitis including BNC. Patient has been Covid vaccinated and boosted. Liver chemistry was normal in June 2020. Came with ALT at 89, AST 943, total bili 3.0. Alkaline phosphatase 45 normal GGT 51 normal. CK 56, LDH 670. Overall, it seems mainly hepatocellular necroinflammatory pattern. Monitor liver test. Patient not in hypotension. Viral hepatitis panel ordered. May be due to recent viral flulike infection OR DILI. Right upper quadrant sonogram ordered. Acetaminophen, TriCor, exemestane, loratadine, Pentoxifylline AND pentoxifylline 10. Acute upper GI bleed, 2 episodes on 11/23: On IV Protonix. H&H did not drop. Continue baby aspirin 11. Acute kidney injury with hyperkalemia: Patient admitted with creatinine 0.84 increase from 1.25, 2.1 and 1.99. Most likely prerenal/ATN from heart failure, non-NSTEMI/cardiorenal disease. 12. Leukocytosis with lymphopenia, exact etiology unclear, patient did not have fever or any focus of infection including UTI, cough pertaining to URI or pneumonia, abdominal pain. Blood culture, UA, urine culture ordered. Anxiety and depression, dementia unclear type and classification, history of breast cancer unclear staging type and classification, GERD: continue patient home duloxetine regimen. Follow-up as an outpatient. Patient on implants at home. Breast cancer seems in remission. DVT prophylaxis: SCDs, continue home Eliquis regimen. CODE status: Poor prognosis. DNR CC hospice care I discussed with the art display maker Dr. Rojas today and we agreed that patient is palliative/hospice appropriate. She has multiple active issues going on including acute on chronic systolic and diastolic combined heart failure, recent echo EF 25%, acute hypoxic respiratory failure, acute liver injury, leukocytosis 36,000, lymphopenia, macrocytosis anemia, hyperkalemia, acute kidney injury along with comorbidities of dementia and others as mentioned in the progress note. On 11/24 I talked to the patient's son who is unfortunately also visually impaired and hearing impaired, about the recent acute change in clinical condition. Cordage status was changed to DNC hospice care on 11/23/2021. Hospice is consulted. Patient is unwanted for inpatient hospice unit in [facility]. Discussed with nursing staff and disability case manager/. Total time of the visit including total time spent in counseling or coordination of care, (more than 50% of the total time, spent in obtaining medical information from nurses and other ancillary care providers,explaining to the patient about labs, imaging, diagnosis and management), addressing acute liver injury, meds reconciliation, discussion with art display maker, patient's son review of labs and imaging is 40 minutes. Charges/Coding Visit Charges Inpatient E&M: 17753 Subs Hosp L3
[2021-11-24 16:31] LABS: Bedside Glucose 162 mg/dL (74-106)
[2021-11-24] MEDS: Bumetanide 1 MG/4 ML Vial 0.5 MG IV (17:09)
[2021-11-24] MEDS: 0.9% Saline Lock 10 ML Syringe IV (17:10)
[2021-11-24] MEDS: Metoprolol Tartrate 50 MG Tablet PO (21:20)
[2021-11-24] MEDS: MELATONIN 10 MG TABLET PO (21:20)
[2021-11-24] MEDS: traZODone 50 MG Tablet PO (21:20)
[2021-11-24] MEDS: Pregabalin 50 MG Capsule 100 MG PO (21:22)
[2021-11-24 21:31] LABS: Bedside Glucose 167 mg/dL (74-106)
[2021-11-25 06:50] LABS: Bedside Glucose 139 mg/dL (74-106)
[2021-11-25 07:23] VITALS: PULSE 71; RESP 18; O2SAT 98
[2021-11-25] MEDS: Budesonide Respules 0.5 MG/2 ML AMPUL.NEB. INHALATION ×2 (07:23→18:51)
[2021-11-25 09:09] LABS: HEPATITIS B SURFACE AG Negative (Negative); Hepatitis A IgM Antibody Negative (Negative); Hepatitis B Core AB IgM Negative (Negative)
[2021-11-25 09:55] VITALS: BP 118/57; PULSE 94; RESP 18; TEMP 36.9; O2SAT 98
[2021-11-25] MEDS: Glycerin/Hypromellose/PEG400 15 ml Bottle 1 DRP RIGHT EYE ×2 (10:02→22:45)
[2021-11-25] MEDS: Donepezil HCl 5 MG Tablet PO (10:02)
[2021-11-25] MEDS: Aspirin E.C. 81 MG Tablet PO (10:02)
--- NOTE | 2021-11-25 10:02 | PCM.TXEXTCAR ---
Diet 11/22/21 23:22 Diet: Consistent Carb - Calorie Controlled How many daily calories?: 1600 calorie Routine Orders/Code Status Suppository Type: Dulcolax 10mg Suppository Frequency: Daily PRN Routine Lab Work: CBC, BMP and - (CBC with differential, BMP, liver profile every week if patient does not elect hospice care) Code Status: DNRCC (hospice care) Problem/Diagnosis (1) Atrial fibrillation with rapid ventricular response: Status: Acute (2) Elevated troponin: Status: Acute Allergies/Procedures Done in Hospital Allergies No Known Allergies Allergy (Verified 11/22/21 21:08) Type of Care/Length of Stay Estimated LOS: Convalescent Care Less Than 30 days Type of Care Needed: Intermediate Rehab Potential: Poor Prognosis: Poor Additional Orders/Day of Discharge Day of Discharge: 11/25/21 Dietary and Speech Recommendations Dietitian Recommendations/Changes: consistent CHO, 1600 calorie controlled diet; will increase Glucerna to 4oz 4x/day Discharge Plan Admission Admit Date/Time: 11/22/21 22:38 Primary Reason for Your Visit: None NSTEMI, acute on chronic HF, acute liver injury, SAUL, GNR bacteremia Attending Provider: Chilo Brar Primary Care Provider: Roscoe Bradley Consulting Providers: Jimmy Rojas ; Suzette Ballard ; Deo Owen ; Shelly Wiggins ; Eliana Davison ; Mable Rojas ; Natalya Rendon CELL POURER Discharge Orders/Prescriptions Prescriptions: New ferrous sulfate [FeroSul] 325 mg (65 mg iron) Tablet 325 mg PO QODAY@1200 Qty: 0 RF: 0 metoprolol tartrate 50 mg Tablet 50 mg PO BID Qty: 0 RF: 0 budesonide 0.5 mg/2 mL Suspension For Nebulization 0.5 mg inhalation BID.RT Qty: 0 RF: 0 insulin lispro [Humalog KwikPen Insulin] 100 unit/mL Insulin Pen See Protocol unit subcut ACHS Qty: 0 RF: 0 menthol-zinc oxide [Calmoseptine] 0.44-20.6 % Ointment 1 applic topical BID Qty: 0 RF: 0 pantoprazole [Protonix] 40 mg tablet,delayed release (DR/EC) 40 mg PO BID Qty: 60 RF: 0 amoxicillin-pot clavulanate [Augmentin] 500-125 mg tablet 1 tab PO BID Qty: 20 RF: 0 Continued pregabalin [Lyrica] 100 mg capsule 100 mg PO QHS RF: 0 pravastatin 40 mg tablet 40 mg PO QHS RF: 0 duloxetine 60 MG capsule 60 mg PO DAILY RF: 0 vitamins A,C,X-bnlc-htofmx 1 EACH capsule 1 ea PO QHS RF: 0 cholecalciferol (vitamin D3) 50,000 UNIT capsule 50,000 unit PO MO RF: 0 donepezil [Aricept] 5 MG tablet 5 mg PO DAILY RF: 0 trazodone 50 MG tablet 50 mg PO QHS RF: 0 gabapentin [Neurontin] 100 MG capsule 100 mg PO QHS RF: 0 albuterol sulfate [ProAir HFA] 1 PUFF inhaler 2 puff inhalation TID PRN (Reason: Sob &/Or Wheezing) RF: 0 multivitamin with iron 1 EACH tablet 1 tab PO BID RF: 0 propylene glycol [Systane Balance] 10 ML drops 1 drp Right Eye BID RF: 0 melatonin 10 MG tablet 10 mg PO QHS RF: 0 aspirin 81 MG tablet 81 mg PO DAILY RF: 0 amlodipine 5 MG tablet 5 mg PO DAILY Qty: 0 RF: 0 Changed isosorbide mononitrate 120 MG tablet 60 mg PO DAILY Qty: 0 RF: 0 bumetanide 0.5 mg tablet 0.5 mg PO BIDCM Qty: 0 RF: 0 Held exemestane 25 mg tablet 25 mg PO DAILY RF: 0 Hold Instructions: Resume on 12/08/21. If patient son continues hospice status, discontinue levothyroxine 75 MCG tablet 75 mcg PO DAILY RF: 0 Hold Instructions: Resume on 12/08/21. Repeat thyroid function test after 2 weeks palbociclib [Ibrance] 125 MG capsule 125 mg PO DAILY RF: 0 Hold Instructions: Resume on 12/08/21. Hold for 2 week . If patient son continues hospice status, discontinue apixaban [Eliquis] 2.5 MG tablet 2.5 mg PO BID RF: 0 Hold Instructions: Hold for 1 week as patient had GI bleed on 11/23. If patient son continues hospice status, discontinued Discontinued omeprazole 20 MG capsule 20 mg PO DAILY RF: 0 ferrous sulfate 325 MG tablet 325 mg PO BIDCM RF: 0 loratadine [Claritin Liqui-Gel] 10 MG capsule 10 mg PO QHS RF: 0 metoprolol tartrate 37.5 MG tablet 37.5 mg PO BID RF: 0 potassium chloride [Klor-Con M20] 20 MEQ tablet,ER particles/crystals 60 meq PO DAILY RF: 0 hydrochlorothiazide 25 MG tablet 25 mg PO DAILY RF: 0 pentoxifylline 400 MG tablet 400 mg PO BID RF: 0 No Action fenofibrate 160 mg tablet 160 mg tablet 160 mg PO DAILY RF: 0 Referrals / Follow Up: Pam Rey MD [STAFF PHYSICIAN] - Within 2 Weeks (If patient does not elect hospice care) Jimmy Rojas MD [STAFF PHYSICIAN] - Within 1 Month (If patient does not elect hospice care) Roscoe Bradley MD [Primary Care Provider] - Within 2 Weeks Disposition Disposition (needs filled in before D/C Order can be placed): NonSkilled NH/[facility]
[2021-11-25] MEDS: Menthol/Lanolin/Calamine/Znox 113 GM Tube 1 APPLIC TOPICAL ×2 (10:03→22:58)
--- NOTE | 2021-11-25 10:03 | PCM.DC.SUM ---
Providers Date of Admission: 11/22/21 Primary Care Physician: Roscoe Bradley MD Consultations 11/22/21 23:21 Consult: Cardiology Routine Consulting Provider: Jimmy Rojas Reason for Consult: PAF with RVR on drip, elevated cardiac enzymes EMERGENT Consult: No Notified: Yes Date Notified: 11/23/21 Time Notified: 06:30 Method of Notification: cortext 11/23/21 19:08 Consult: Hospice / Palliative Care Routine Consulting Provider: [facility] Reason for Consult: Multiple medical problems. HF, Resp failure, NSTEMI,GI bleed, liver injury EMERGENT Consult: No Notified: Yes Date Notified: 11/23/21 Time Notified: 19:14 Method of Notification: Verbal Reason For Visit: PAF W/RVR, ELEVATED TROP Diagnosis Discharge Diagnosis (1) Atrial fibrillation with rapid ventricular response: Status: Acute Code(s): I48.91 - Unspecified atrial fibrillation (2) Elevated troponin: Status: Acute Code(s): R77.8 - Other specified abnormalities of plasma proteins Medications at Discharge Home Medications duloxetine 60 mg PO DAILY 03/24/16 isosorbide mononitrate 120 mg PO DAILY 03/24/16 levothyroxine 75 mcg PO DAILY 03/24/16 omeprazole 20 mg PO DAILY 03/24/16 vitamins A,C,S-eghh-rlvdqv 1 ea PO QHS 03/24/16 cholecalciferol (vitamin D3) 50,000 unit PO MO 09/18/16 bumetanide 0.5 mg tablet 0.5 mg PO DAILY 12/03/17 exemestane 25 mg tablet 25 mg PO DAILY 12/03/17 pravastatin 40 mg tablet 40 mg PO QHS 12/03/17 pregabalin 100 mg capsule 100 mg PO QHS 12/03/17 albuterol sulfate [ProAir HFA] 2 puff INHALATION TID PRN 10/11/18 donepezil [Aricept] 5 mg PO DAILY 10/11/18 ferrous sulfate 325 mg PO BIDCM 10/11/18 gabapentin [Neurontin] 100 mg PO QHS 10/11/18 loratadine [Claritin Liqui-Gel] 10 mg PO QHS 10/11/18 multivitamin with iron 1 tab PO BID 10/11/18 palbociclib [Ibrance] 125 mg PO DAILY 10/11/18 propylene glycol [Systane Balance] 1 drp RIGHT EYE BID 10/11/18 trazodone 50 mg PO QHS 10/11/18 [] 160 mg PO DAILY 11/19/18 amlodipine 5 mg PO DAILY 11/19/18 melatonin 10 mg PO QHS 11/19/18 metoprolol tartrate 37.5 mg PO BID 11/19/18 apixaban [Eliquis] 2.5 mg PO BID 11/28/18 aspirin 81 mg PO DAILY 11/28/18 hydrochlorothiazide 25 mg PO DAILY 11/28/18 pentoxifylline 400 mg PO BID 11/28/18 potassium chloride [Klor-Con M20] 60 meq PO DAILY 11/28/18 Weight / BMI Weight Weight: 127 lb 6.835 oz Body Mass Index (BMI) 22.1 ABG / Lab / Microbiology Data Result Diagrams: 11/24/21 04:09 11/24/21 07:16 Laboratory: Laboratory Results - last 24 hr 11/23/21 19:45: Diff Path Review Reviewed 11/24/21 04:09: Diff Path Review Reviewed 11/24/21 11:14: POC Glucose 137 H 11/24/21 16:01: POC Glucose 162 H 11/24/21 21:16: POC Glucose 167 H 11/25/21 06:40: POC Glucose 139 H Microbiology: Microbiology 11/24/21 15:30 Blood Culture (Wb) - Arm Right Blood Culture - Preliminary 11/23/21 18:30 Stool Stool Occult Blood (CRUZ) - Final Occult Blood Positive Discharge Plan Admission Admit Date/Time: 11/22/21 22:38 Attending Provider: Chilo Brar Primary Care Provider: Roscoe Bradley Consulting Providers: Jimmy Rojas ; Suzette Ballard ; Deo Owen ; Shelly Wiggins ; Eliana Davison ; Mable Rojas ; Natalya Rendon HYDRAULIC BLOCKER Discharge Orders/Prescriptions Prescriptions: No Action pregabalin [Lyrica] 100 mg capsule 100 mg PO QHS RF: 0 pravastatin 40 mg tablet 40 mg PO QHS RF: 0 bumetanide 0.5 mg tablet 0.5 mg PO DAILY RF: 0 exemestane 25 mg tablet 25 mg PO DAILY RF: 0 isosorbide mononitrate 120 MG tablet 120 mg PO DAILY RF: 0 levothyroxine 75 MCG tablet 75 mcg PO DAILY RF: 0 duloxetine 60 MG capsule 60 mg PO DAILY RF: 0 vitamins A,C,H-knnc-qvswiu 1 EACH capsule 1 ea PO QHS RF: 0 omeprazole 20 MG capsule 20 mg PO DAILY RF: 0 cholecalciferol (vitamin D3) 50,000 UNIT capsule 50,000 unit PO MO RF: 0 donepezil [Aricept] 5 MG tablet 5 mg PO DAILY RF: 0 trazodone 50 MG tablet 50 mg PO QHS RF: 0 ferrous sulfate 325 MG tablet 325 mg PO BIDCM RF: 0 gabapentin [Neurontin] 100 MG capsule 100 mg PO QHS RF: 0 albuterol sulfate [ProAir HFA] 1 PUFF inhaler 2 puff inhalation TID PRN (Reason: Sob &/Or Wheezing) RF: 0 multivitamin with iron 1 EACH tablet 1 tab PO BID RF: 0 loratadine [Claritin Liqui-Gel] 10 MG capsule 10 mg PO QHS RF: 0 propylene glycol [Systane Balance] 10 ML drops 1 drp Right Eye BID RF: 0 palbociclib [Ibrance] 125 MG capsule 125 mg PO DAILY RF: 0 metoprolol tartrate 37.5 MG tablet 37.5 mg PO BID RF: 0 amlodipine 5 MG tablet 5 mg PO DAILY RF: 0 melatonin 10 MG tablet 10 mg PO QHS RF: 0 fenofibrate 160 mg tablet 160 mg tablet 160 mg PO DAILY RF: 0 potassium chloride [Klor-Con M20] 20 MEQ tablet,ER particles/crystals 60 meq PO DAILY RF: 0 hydrochlorothiazide 25 MG tablet 25 mg PO DAILY RF: 0 aspirin 81 MG tablet 81 mg PO DAILY RF: 0 pentoxifylline 400 MG tablet 400 mg PO BID RF: 0 apixaban [Eliquis] 2.5 MG tablet 2.5 mg PO BID RF: 0 Referrals / Follow Up: Roscoe Bradley MD [Primary Care Provider] -
[2021-11-25 10:05] VITALS: BP 118/57; PULSE 94
[2021-11-25] MEDS: Bumetanide 1 MG/4 ML Vial 0.5 MG IV ×3 (10:05→17:15)
--- NOTE | 2021-11-25 10:39 | PCM.PN.HOSP ---
Subjective Subjective Seen and examined in the morning. Blood culture preliminary shows positive gram-negative vianey therefore started on IV antibiotic about 7:15 AM. Patient was very short of breath, minimally responsive labored breathing. I saw her again after half an hour and her breathing got better she was more awake and responded simple questions. She said she ate her breakfast. No fever. I talked to patient's cousin and sister in the room and patient's son over the phone Objective Data Objective Data Vital Signs: Vital Signs Temp Pulse Resp BP Pulse Ox 98.5 F 94 18 118/57 L 98 11/25/21 09:55 11/25/21 10:05 11/25/21 09:55 11/25/21 10:05 11/25/21 09:55 Oxygen Flow Rate (L/min) 2 Oxygen Delivery Method Nasal Cannula Weight: 127 lb 6.835 oz Body Mass Index (BMI) 22.1 Intake & Output: Intake and Output for Last 24 Hours 11/23/21 11/24/21 11/25/21 23:59 23:59 23:59 Intake Total 1633.83 / 1633.83 495.25 / 555.25 270 / 270 Balance 1633.83 / 1633.83 495.25 / 555.25 270 / 270 Lab / Micro Data Result Diagrams: 11/24/21 04:09 11/24/21 07:16 Labs: Laboratory Results - last 24 hr 11/23/21 19:45: Diff Path Review Reviewed 11/24/21 04:09: Diff Path Review Reviewed 11/24/21 11:14: POC Glucose 137 H 11/24/21 16:01: POC Glucose 162 H 11/24/21 21:16: POC Glucose 167 H 11/25/21 06:40: POC Glucose 139 H Micro: Microbiology 11/24/21 15:30 Blood Culture (Wb) - Arm Right Blood Culture - Preliminary 11/23/21 18:30 Stool Stool Occult Blood (CRUZ) - Final Occult Blood Positive Rhythm Strip Rhythm Strip: A-fib Rate: 144 Ectopy: PVC(s) Physical Exam Narrative Seen and examined Patient is lethargic. Does not remember well. Yesterday she had 2 bloody bowel movements but hemoglobin does not drop. No fever noticed but patient has severe leukocytosis. Stool for occult blood positive Physical Examination: General: Mild lethargy. Oriented x2. Slow to respond. HEENT: Atraumatic, PERRLA, EOMI, Normocephalic Oral: Oral mucosa dry. No Gingival or Mucosal Lesions/ Ulcerations Neck: Supple, No JVD, Negative Carotid Bruits Lungs: Air entry diminished in bilateral lung bases. Bilateral fine crepitations and wheezing Cardiovascular: Sinus rhythm with multiple PVCs, irregular heartbeat. CABG scar. No appreciable murmur Abdomen: Bowel Sounds Present, Soft, Non Tender, Non-Distended. No palpable mass. Liver not enlarged : No renal angle tenderness. No suprapubic tenderness. Extremities: No edema, Capillary Refill Less than 3 Seconds Skin: No rashes, No breakdown Musculoskeletal: Mild to moderate muscle atrophy extremities. No Tenderness to Palpation of Joints or Extremities Neurological: Cranial nerves II-XII grossly intact, DTR 2+/4. Psych/Mental Status: Flat affect. Dementia Assessment & Plan Assessment/Plan (1) Atrial fibrillation with rapid ventricular response: (2) Elevated troponin: PLAN: The patient is an 81 y/o F with multiple comorbidities admitted with shortness of breath, fatigue, dyspnea on exertion and chest discomfort. On evaluation in ED was found to be A. fib with RVR. #1. Paroxsymal atrial fibrillation with RVR: Patient is admitted in PCU. Twelve-lead EKG shows A. fib with RVR. Multiple PVCs, incomplete left bundle branch block with nonspecific ST-T abnormality. Household Personal Assistant consulted. Patient on metoprolol, Cardizem drip and Eliquis. ekg monitor tech shows sinus tachycardia with multiple PVCs. 11/24: Heart rate is controlled. 11/25: heart rate is controlled. Blood pressure 118/57. #2. Non-NSTEMI, unclear type I, primary event or type II, due to increased demand from A. fib RVR/hyperthyroidism, : Patient seen by pulp mill supervisor. Currently on medical management to treat underlying precipitating factor, A. fib with RVR. Correct hypokalemia and other underlying electrolyte abnormality. 11/24: Patient is hyperkalemic. Potassium supplement discontinued. 1 dose Kayexalate given. #3. 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 fib with RVR with history of coronary artery status post PCI and CABG, severe valvular heart disease, MR, TR and moderate to severe pulmonary hypertension : Chest x-ray individually reviewed shows increased pulmonary vascular congestion status post AICD placement, device interrogation requested, 11/19/2018 echocardiogram with mildly dilated LV, EF 40 to 45%, regional wall motion abnormalities noted, stage II diastolic dysfunction, moderately enlarged LA, mild MVI, mild TVI, RVSP 36 mmHg reportedly. Continue aspirin, Eliquis, statin, metoprolol, bumex, not on GERRY inhibitor or ARB. On 11/23/2021, 2D echo shows EF 25% decrease from the previous 1 of 40 to 45%. Moderately dilated RV, global RV systolic dysfunction, LA mildly enlarged, and mitral valve thickening and calcification. At least severe 3+ MR, 3+ TR with mild diffuse intimal thickening. RVSP 52?65 moderate to severe pulmonary hypertension 11/24: BP is 126/81 better. Continue supportive medications Bumex, changed to IV. Continue other medications as permitted by her blood pressure 11/25: As patient blood pressure is better, Bumex increased to 1 mg IV twice daily. Patient had shortness of breath and labored breathing in the morning #4.COPD:maintain on oxygen with wean as tolerated to room air, continue budesonide duonebs given tachycardia upon presentation, PRN albuterol, HOB, IS parameters. #5. Diabetes mellitus type II: Accu-Cheks insulin is covered with below sliding scale #6. Hypertension: Blood pressure was low on 11/23 in systolic 90s. Mild improvement on 11/24 #7. Hyperlipidemia: Continue home statin regimen. #8. Currently hyperthyroidism with history of hypothyroidism: TSH 5.17 and free T4 1.53 elevated suggestive of hyperthyroidism although patient has history of hypothyroidism. At home, the patient on Synthroid 75 mcg daily, discontinued. Thyroid function test difficult to interpret as patient is acutely sick and usually patient of hyperthyroidism due to high Synthroid dose should have low TSH and high free T4. Repeat thyroid function test after 1 week on baseline. #9. Acute liver injury exact etiology unclear: Patient denies any heavy alcohol use, history of new medication or herbal medication. Denies history of chronic hepatitis including BNC. Patient has been Covid vaccinated and boosted. Liver chemistry was normal in June 2020. Came with ALT at 89, AST 943, total bili 3.0. Alkaline phosphatase 45 normal GGT 51 normal. CK 56, LDH 670. Overall, it seems mainly hepatocellular necroinflammatory pattern. Monitor liver test. Patient not in hypotension. Viral hepatitis panel ordered. May be due to recent viral flulike infection OR DILI. Right upper quadrant sonogram ordered. Acetaminophen, TriCor, exemestane, loratadine, Pentoxifylline AND pentoxifylline 11/25: Liver ultrasound shows fatty infiltration, small ascites and pericholecystic fluid 10. Acute upper GI bleed, 2 episodes on 11/23: On IV Protonix. H&H did not drop. Continue baby aspirin. Eliquis discontinued 11. Acute kidney injury with hyperkalemia: Patient admitted with creatinine 0.84 increase from 1.25, 2.1 and 1.99. Most likely prerenal/ATN from heart failure, non-NSTEMI/cardiorenal disease. 12. Leukocytosis with lymphopenia, exact etiology unclear, patient did not have fever or any focus of infection including UTI, cough pertaining to URI or pneumonia, abdominal pain. Blood culture, UA, urine culture ordered. 11/25: Preliminary blood culture shows gram-negative vianey. Started on IV Zosyn first dose now. Discussed with nursing staff Anxiety and depression, dementia unclear type and classification, history of breast cancer unclear staging type and classification, GERD: continue patient home duloxetine regimen. Follow-up as an outpatient. Patient on implants at home. Breast cancer seems in remission. DVT prophylaxis: SCDs, Eliquis discontinued due to GI bleed. CODE status: Poor prognosis. DNR CC hospice care I discussed with the pulp mill supervisor Dr. Rojas today and we agreed that patient is palliative/hospice appropriate. She has multiple active issues going on including acute on chronic systolic and diastolic combined heart failure, recent echo EF 25%, acute hypoxic respiratory failure, acute liver injury, leukocytosis 36,000, lymphopenia, macrocytosis anemia, hyperkalemia, acute kidney injury along with comorbidities of dementia and others as mentioned in the progress note. On 11/24 I talked to the patient's son who is unfortunately also visually impaired and hearing impaired, about the recent acute change in clinical condition. [place] status was changed to DNRCC hospice care on 11/23/2021. Hospice is consulted. Patient is unwanted for inpatient hospice unit in [facility]. Discussed with nursing staff and classification case manager/. 11/25: Labs discontinued yesterday as patient son signed hospice care in afternoon with hospice nurse. Today he he has questions about medications that could be stopped if he chooses hospice. I talked to the patient over the phone and gave the meaning of hospice and subjective used to make the patient comfortable with expected life expectancy less than 6 months. The aim is more symptomatic management. I talked to the administrator social welfare and urged hospice nurse to talk to him so that he gets his questions answered. Total time of the visit including total time spent in counseling or coordination of care, (more than 50% of the total time, spent in obtaining medical information from nurses and other ancillary care providers,explaining to the patient about labs, imaging, diagnosis and management), addressing acute liver injury, meds reconciliation, discussion with pulp mill supervisor, patient's son review of labs and imaging is 40 minutes. Clinical Impression(s) from Imaging Studies Chest X-Ray 11/22/21 21:24 IMPRESSION: 1. Mild cardiomegaly and likely mild pulmonary vascular congestion. No other evidence of acute cardiopulmonary disease. Electronically Signed: Joe Gillis DO at 22:38 EDT , Echocardiogram 11/22/21 23:21 Interpretation Summary Moderately dilated left ventricle. The estimated ejection fraction is 25 %. D shaped septum in systole and diastole. Moderately dilated right ventricle. Moderate global right ventricular systolic dysfunction. The left atrium is mildly enlarged. Mild focal mitral valve calcification of the posterior leaflet. Mild diffuse mitral valve thickening. Mild papillary muscle dysfunction of the mitral valve. Moderately severe (3+) eccentric mitral valve insufficiency. Moderately severe (3+) tricuspid valve insufficiency. Mild diffuse aortic valve thickening. Mild focal aortic valve calcification. Trivial pulmonic valve insufficiency. Echolucency compatible with a pleural effusion. Right ventricular systolic pressure estimated to be 52 mmHg. Unable to assess diastolic dysfunction. Ordering Physician: Sindi Parker Referring Physician: Roscoe Bradley Performed By: Ric Franco RCS Abdomen Ultrasound 11/23/21 07:32 IMPRESSION: Fatty infiltration of the liver. Small amount of ascites and pericholecystic fluid. Right renal cyst. Charges/Coding Visit Charges Inpatient E&M: 60384 Subs Hosp L3
[2021-11-25] MEDS: Insulin Lispro 100 UNIT/ML INSULN.PEN SC ×2 (11:48→22:45)
[2021-11-25] MEDS: 0.9% Saline Lock 10 ML Syringe IV (11:52)
[2021-11-25 11:55] LABS: Bedside Glucose 187 mg/dL (74-106)
[2021-11-25 13:12] LABS: Phosphorus 1.7 mg/dL (2.5-4.9)
[2021-11-25 13:17] LABS: ALB/GLOB Ratio 1.3 RATIO (0.9-2.4); AST(SGOT) 1926 U/L (15-37); Alanine Aminotransfer ALT/SGPT 2114 U/L (13-56); Albumin, Serum 3.5 g/dL (3.2-5.0); Alkaline Phosphatase 54 U/L (45-117); Anion Gap 4 (5-15); BUN 40 mg/dL (7-18); BUN/Creat Ratio 35.7 RATIO (10-20); CPK Total, Creatine Kinase 29 U/L (26-192); Calcium,Total 8.6 mg/dL (8.5-10.1); Chloride 96 mmol/L (98-107); Creatinine, Serum 1.12 mg/dL (0.55-1.02); EST Glomerular Filtration Rate 50 mL/min (>60); Est Glom Filt Rate - Afr Amer 60 mL/min (>60); Estimated Creatinine Clearance 34.59 ml/min; Globulin 2.6 g/dL (2.2-4.2); Glucose 169 mg/dL (74-106); Magnesium 1.6 mg/dL (1.6-2.6); Potassium 2.8 mmol/L (3.5-5.1); Protein, Total 6.1 g/dL (6.4-8.2); Sodium Level 136 mmol/L (136-145)
[2021-11-25 13:30] LABS: Hep C Antibodies <0.1 s/co ratio (0.0-0.9)
--- NOTE | 2021-11-25 13:37 | CASEMGMT ---
Social Work Received call from [facility] and they are unable to accept pt as insurance does not have out of network benefits. SW met with pt and informed of this. SW inquired about SNF choices and pt deferred decisions to Son. SW placed call to pt son David and informed that [facility] cannot accept. SW reviewed list of in network SNFs with David and he would like [facility]. Referral faxed to [facility] and call to Simone at [facility]. They do not have private rooms available. David also stating he has questions about hospice. Phone call to Meng at [facility] and requested someone call David to address questions about hospice program. Meng confirms call will be made. Return call to David and updated that [facility] does not have private rooms and hospice will be calling him. David now does not want [facility] and would prefer [facility] who has private rooms. [facility] referral cancelled. Call to María at [facility] and informed that pt son does not want hospice services at this time. Referral to [facility]. They are able to accept pt. David notified about [facility] and he has spoke with hospice and decided that he does not want hospice services nor does he want skilled therapy at the [facility]. Pt will go to [facility] under intermediate level of care. 7000 convalescent form completed in [facility]. Level of Care faxed to [facility]. Physician updated on family's change of plans. Plan: [facility] - intermediate care. Pending return of Level of Care from [facility] TERESA Livingston
--- NOTE | 2021-11-25 13:41 | US_ITS ---
HISTORY: SAUL EXAMINATION: US Kidney(s) complete (eg, kidneys and bladder) TECHNIQUE: Fisher scale and color doppler images were obtained of the kidneys. COMPARISON: None FINDINGS: RIGHT KIDNEY: 10.0 cm in length. No focal parenchymal mass, hydronephrosis, nephrolithiasis, or perinephric fluid collection is noted. Upper pole cyst measures up to 3.5 cm. LEFT KIDNEY: 10.0 cm in length. No focal parenchymal mass, hydronephrosis, nephrolithiasis, or perinephric fluid collection is noted. Interpolar cyst measures up to 1.4 cm. URINARY BLADDER: Unremarkable. US/Kidney and Bladder IMPRESSION: No hydronephrosis. at 1524 Reported and signed by: Juan Murdock MD Electronically Signed: Juan Murdock MD at 15:23 EDT ,
[2021-11-25 13:42] LABS: Absolute Lymphocyte Count 1.36 X10^3/uL (0.83-4.51); Absolute Neutrophil Count 12.3 X10^3/uL (2.0-7.7); Basophil# 0.03 X10^3/uL; Basophil% 0.2 % (0-1); Eosinophil# 0.43 X10^3/uL; Eosinophils% 2.8 % (0-5); Hematocrit 28.7 % (37-47); Hemoglobin 10.4 g/dL (12.0-15.0); Lymphocyte # 1.36 X10^3/ul (0.83-4.51); Lymphocyte % 8.9 % (19-41); Mean Corp Hgb Conc 36.2 g/dL (32-36); Mean Corpuscular Hgb 39.4 pg (27.0-32.0); Mean Corpuscular Volume 108.7 fL (81-99); Mean Platelet Vol. 12.2 fl (6.2-12.0); Monocyte# 1.08 X10^3/uL; Monocyte% 7.1 % (0-10); NRBC Flagged by Analyzer 0.7 % (0-5); Neutrophil # 12.25 X10^3/uL (2.7-7.7); Neutrophil % 80.5 % (47-70); Platelet Count 261 K/mm3 (150-450); RBC Distribution Width CV 15.3 % (11.6-14.6); RBC Distribution Width SD 60.5 fl (35.1-43.9); Red Blood Count 2.64 M/mm3 (4.2-5.4); White Blood Count 15.2 K/mm3 (4.4-11.0)
--- NOTE | 2021-11-25 14:07 | CASEMGMT ---
Social Work Received call from [facility] and they are unable to accept pt as insurance does not have out of network benefits. SW met with pt and informed of this. SW inquired about SNF choices and pt deferred decisions to Son. SW placed call to pt son David and informed that [facility] cannot accept. SW reviewed list of in network SNFs with David and he would like [facility]. Referral faxed to [facility] and call to Simone at [facility]. They do not have private rooms available. David also stating he has questions about hospice. Phone call to Meng at [facility] and requested someone call David to address questions about hospice program. Meng confirms call will be made. Return call to David and updated that [facility] does not have private rooms and hospice will be calling him. David now does not want [facility] and would prefer [facility] who has private rooms. [facility] referral cancelled. Referral to [facility]. They are able to accept pt. David notified about [facility] and he has spoke with hospice and decided that he does not want hospice services. Call to María at [facility] and informed that pt son does not want hospice services at this time. Pt will go to [facility] under skilled level of care. 7000 convalescent form completed in [facility]. Physician updated on family's change of plans. Plan: [facility], Skilled level of care under convalescent stay. Pending insurance precert. TERESA Livingston
--- NOTE | 2021-11-25 14:25 | CASEMGMT ---
Social Work VM left with Direction home flight manager [facility] and updated that plan is to go to SNF at time of d/c. Will fax d/c summary to [facility] at appropriate time. TERESA Livingston
[2021-11-25] MEDS: Magnesium Chloride 64 MG Delay Rel.Tablet 128 MG PO ×2 (16:20→22:44)
[2021-11-25 16:46] LABS: Bacteria 0 SEEN /hpf (None Seen); Mucous, Urine 0 SEEN /hpf (<or=2+); Red Blood Cells-Urine 0 SEEN /hpf (0-5); Squamous Epithelial Cells - UA 0 SEEN /hpf (5-10); White Blood Cells 0 SEEN /hpf (0-5)
[2021-11-25 17:00] LABS: Bedside Glucose 134 mg/dL (74-106)
[2021-11-25 17:21] LABS: Color, Urine Yellow (Yellow); Glucose, Dipstick Normal (Normal); Ketone-Dipstick Negative (Negative); Leukocyte Esterase-Dipstick Negative /ul (Negative); Nitrite-Dipstick Negative (Negative); Occult Blood-Urine Negative /ul (Negative); Protein-Dipstick Negative (Negative); Urine Bilirubin Dipstick Negative (Negative); Urine Clarity Clear (Clear); Urine Urobilinogen 1 mg/dl (Normal)
[2021-11-25 17:40] LABS: Urine Sodium 55 mmol/L (Not Establ.)
[2021-11-25 18:14] LABS: Osmolality, Urine 324 mOsm/KG
[2021-11-25 18:52] VITALS: PULSE 79; RESP 18; O2SAT 97
[2021-11-25 22:33] VITALS: BP 102/65; PULSE 100; RESP 16; TEMP 36.6; O2SAT 91
[2021-11-25 22:44] VITALS: BP 102/65; PULSE 100
[2021-11-25] MEDS: MELATONIN 10 MG TABLET PO (22:44)
[2021-11-25] MEDS: Pregabalin 50 MG Capsule 100 MG PO (22:44)
[2021-11-25] MEDS: traZODone 50 MG Tablet PO (22:44)
[2021-11-25] MEDS: Metoprolol Tartrate 50 MG Tablet PO (22:44)
[2021-11-25 23:16] LABS: Bedside Glucose 191 mg/dL (74-106)
[2021-11-26 06:50] LABS: Bedside Glucose 126 mg/dL (74-106)
[2021-11-26] MEDS: Budesonide Respules 0.5 MG/2 ML AMPUL.NEB. INHALATION ×2 (07:13→19:04)
[2021-11-26 07:17] VITALS: PULSE 85; RESP 20; O2SAT 94
[2021-11-26 07:38] LABS: Absolute Neutrophil Count 8.1 X10^3/uL (2.0-7.7); Basophil# 0.04 X10^3/uL; Basophil% 0.4 % (0-1); Eosinophil# 0.51 X10^3/uL; Eosinophils% 4.6 % (0-5); Hematocrit 29.1 % (37-47); Hemoglobin 10.2 g/dL (12.0-15.0); Lymphocyte % 10.7 % (19-41); Mean Corp Hgb Conc 35.1 g/dL (32-36); Mean Corpuscular Hgb 39.1 pg (27.0-32.0); Mean Corpuscular Volume 111.5 fL (81-99); Monocyte# 1.12 X10^3/uL; Neutrophil # 8.13 X10^3/uL (2.7-7.7); Neutrophil % 72.8 % (47-70); Platelet Count 247 K/mm3 (150-450); RBC Distribution Width CV 15.7 % (11.6-14.6); RBC Distribution Width SD 63.5 fl (35.1-43.9); Red Blood Count 2.61 M/mm3 (4.2-5.4); White Blood Count 11.2 K/mm3 (4.4-11.0)
[2021-11-26 08:17] LABS: ALB/GLOB Ratio 1.3 RATIO (0.9-2.4); AST(SGOT) 933 U/L (15-37); Alanine Aminotransfer ALT/SGPT 1657 U/L (13-56); Albumin, Serum 3.4 g/dL (3.2-5.0); Alkaline Phosphatase 58 U/L (45-117); Anion Gap 6 (5-15); BUN 32 mg/dL (7-18); BUN/Creat Ratio 33.2 RATIO (10-20); Calcium,Total 8.6 mg/dL (8.5-10.1); Chloride 96 mmol/L (98-107); Creatinine, Serum 0.96 mg/dL (0.55-1.02); EST Glomerular Filtration Rate 59 mL/min (>60); Est Glom Filt Rate - Afr Amer 72 mL/min (>60); Estimated Creatinine Clearance 40.36 ml/min; Globulin 2.7 g/dL (2.2-4.2); Glucose 141 mg/dL (74-106); Magnesium 1.4 mg/dL (1.6-2.6); Protein, Total 6.1 g/dL (6.4-8.2); Sodium Level 139 mmol/L (136-145)
[2021-11-26 08:18] LABS: Phosphorus 3.6 mg/dL (2.5-4.9)
[2021-11-26 09:11] VITALS: BP 134/80; PULSE 86
[2021-11-26] MEDS: Metoprolol Tartrate 50 MG Tablet PO (09:11)
[2021-11-26] MEDS: Glycerin/Hypromellose/PEG400 15 ml Bottle 1 DRP RIGHT EYE ×2 (09:11→21:04)
[2021-11-26] MEDS: Aspirin E.C. 81 MG Tablet PO (09:11)
[2021-11-26] MEDS: Donepezil HCl 5 MG Tablet PO (09:11)
[2021-11-26] MEDS: Magnesium Chloride 64 MG Delay Rel.Tablet 128 MG PO ×3 (09:11→21:16)
[2021-11-26] MEDS: amLODIPine 5 MG Tablet PO (09:11)
[2021-11-26] MEDS: Bumetanide 1 MG/4 ML Vial 0.5 MG IV ×2 (09:12→17:40)
[2021-11-26] MEDS: Menthol/Lanolin/Calamine/Znox 113 GM Tube 1 APPLIC TOPICAL ×2 (09:12→21:03)
--- NOTE | 2021-11-26 09:52 | PN.HOSP_ITS ---
Subjective Subjective Overall patient is feeling better. She had full breakfast, seconded today. Heart rate and blood pressure is better. Electrolytes reviewed hypokalemia, hypomagnesemia. Transaminases improving. Objective Data Objective Data Vital Signs: Vital Signs Temp Pulse Resp BP Pulse Ox 97.8 F 86 20 H 134/80 H 94 11/25/21 22:33 11/26/21 09:11 11/26/21 07:17 11/26/21 09:11 11/26/21 07:17 Oxygen Flow Rate (L/min) 1 Oxygen Delivery Method Nasal Cannula Weight: 126 lb 5.198 oz Body Mass Index (BMI) 22.1 Intake & Output: Intake and Output for Last 24 Hours 11/24/21 11/25/21 11/26/21 23:59 23:59 23:59 Intake Total 495.25 / 555.25 1252.71 / 1252.71 220.6233 / 220.6233 Output Total 600 / 1100 500 / 500 Balance 495.25 / 555.25 652.71 / 152.71 -279.3767 / -279.3767 Lab / Micro Data Result Diagrams: 11/26/21 07:09 11/26/21 07:09 Labs: Laboratory Results - last 24 hr 11/24/21 04:09: Hepatitis A IgM Ab Negative, Hep Bs Antigen Negative, Hep B Core IgM Ab Negative, Hepatitis C Ab (EIA) <0.1 11/25/21 11:45: POC Glucose 187 H 11/25/21 12:33: Sodium 136, Potassium 2.8 L, Chloride 96 L, Carbon Dioxide 36.0 H, Anion Gap 4 L, BUN 40 H, Creatinine 1.12 H, Estim Creat Clear Calc 34.59, Est GFR (MDRD) Af Amer 60, Est GFR (MDRD) Non-Af 50 L, BUN/Creatinine Ratio 35.7 H, Glucose 169 H, Calcium 8.6, Magnesium 1.6, Total Bilirubin 3.20 H, AST 1926 H, ALT 2114 H, Alkaline Phosphatase 54, Total Creatine Kinase 29, Total Protein 6.1 L, Albumin 3.5, Globulin 2.6, Albumin/Globulin Ratio 1.3 11/25/21 12:33: Phosphorus 1.7 L 11/25/21 13:25: WBC 15.2 H, RBC 2.64 L, Hgb 10.4 L, Hct 28.7 L, MCV 108.7 H, MCH 39.4 H, MCHC 36.2 H D, RDW Std Deviation 60.5 H, RDW Coeff of Ella 15.3 H, Plt Count 261, MPV 12.2 H, Immature Gran % (Auto) 0.500, Neut % (Auto) 80.5 H, Lymph % (Auto) 8.9 L, [place] % (Auto) 7.1, Eos % (Auto) 2.8, Baso % (Auto) 0.2, Absolute Neuts (auto) 12.3 H, Absolute Lymphs (auto) 1.36, Nucleated RBC % 0.7 11/25/21 16:19: POC Glucose 134 H 11/25/21 16:20: Urine Color Yellow, Urine Clarity Clear, Urine pH 5.0, Ur Specific [place] 1.010, Urine Protein Negative, Urine Glucose (UA) Normal, Urine Ketones Negative, Urine Occult Blood Negative, Urine Nitrite Negative, Urine Bilirubin Negative, Urine Urobilinogen 1 H, Ur Leukocyte Esterase Negative, Urine RBC 0 SEEN, Urine WBC 0 SEEN, Ur Squamous Epith Cells 0 SEEN, Urine Bacteria 0 SEEN, Urine Mucus 0 SEEN 11/25/21 16:20: Urine Osmolality 324, Ur Random Sodium 55, Urine Creatinine 16.40 11/25/21 22:36: POC Glucose 191 H 11/26/21 06:06: POC Glucose 126 H 11/26/21 07:09: WBC 11.2 H, RBC 2.61 L, Hgb 10.2 L, Hct 29.1 L, MCV 111.5 H, MCH 39.1 H, MCHC 35.1, RDW Std Deviation 63.5 H, RDW Coeff of Ella 15.7 H, Plt Count 247, MPV 12.0, Immature Gran % (Auto) 1.500 H, Neut % (Auto) 72.8 H, Lymph % (Auto) 10.7 L, [place] % (Auto) 10.0, Eos % (Auto) 4.6, Baso % (Auto) 0.4, Absolute Neuts (auto) 8.1 H, Absolute Lymphs (auto) 1.20, Nucleated RBC % 3.0 11/26/21 07:09: Sodium 139, Potassium 3.0 L, Chloride 96 L, Carbon Dioxide 37.0 H, Anion Gap 6, BUN 32 H, Creatinine 0.96, Estim Creat Clear Calc 40.36, Est GFR (MDRD) Af Amer 72, Est GFR (MDRD) Non-Af 59 L, BUN/Creatinine Ratio 33.2 H, Glucose 141 H, Calcium 8.6, Magnesium 1.4 L, Total Bilirubin 2.80 H, AST 933 H, ALT 1657 H, Alkaline Phosphatase 58, Total Protein 6.1 L, Albumin 3.4, Globulin 2.7, Albumin/Globulin Ratio 1.3 11/26/21 07:09: Phosphorus 3.6 Micro: Microbiology 11/24/21 15:30 Blood Culture (Wb) - Arm Right Blood Culture - Preliminary Gram negative vianey 11/23/21 18:30 Stool Stool Occult Blood (CRUZ) - Final Occult Blood Positive Radiography Diagnostic Testing: Radiology Impression Renal Ultrasound 11/25/21 13:41 IMPRESSION: No hydronephrosis. at 1524 Reported and signed by: Juan Murdock MD Electronically Signed: Juan Murdock MD at 15:23 EDT Reading Location ID and State: [facility] / [place] Tel , Service support , Rhythm Strip Rhythm Strip: A-fib Rate: 144 Ectopy: PVC(s) Physical Exam Narrative Physical Examination: General: Alert, oriented x3 slow to respond. HEENT: Atraumatic, PERRLA, EOMI, Normocephalic Oral: Oral mucosa dry. No Gingival or Mucosal Lesions/ Ulcerations Neck: Supple, No JVD, Negative Carotid Bruits Lungs: Air entry diminished in bilateral lung bases. Bibasilar coarse rhonchi. Cardiovascular: Sinus rhythm with multiple PVCs, irregular heartbeat. CABG scar. Right subclavicular AICD. Systolic murmur LLSB and cardiac apex Abdomen: Bowel Sounds Present, Soft, Non Tender, Non-Distended. No palpable mass. Liver not enlarged : No renal angle tenderness. No suprapubic tenderness. Extremities: No edema, Capillary Refill Less than 3 Seconds Skin: No rashes, No breakdown Musculoskeletal: Mild to moderate muscle atrophy extremities. No Tenderness to Palpation of Joints or Extremities Neurological: Cranial nerves II-XII grossly intact, DTR 2+/4. Psych/Mental Status: Flat affect. Dementia Assessment & Plan Assessment/Plan (1) Atrial fibrillation with rapid ventricular response: (2) Elevated troponin: PLAN: The patient is an 81 y/o F with multiple comorbidities admitted with shortness of breath, fatigue, dyspnea on exertion and chest discomfort. On evaluation in ED was found to be A. fib with RVR. #1. Paroxsymal atrial fibrillation with RVR: Patient is admitted in PCU. Twelve-lead EKG shows A. fib with RVR. Multiple PVCs, incomplete left bundle branch block with nonspecific ST-T abnormality. Plate Shop Helper consulted. Patient on metoprolol, Cardizem drip and Eliquis. casserole preparer shows sinus tachycardia with multiple PVCs. 11/24: Heart rate is controlled. 11/25: heart rate is controlled. Blood pressure 118/57. 11/26. Heart rate is controlled. Eliquis was discontinued on 11/23 after she had hypotension and GI bleed. Her blood pressure recovered since then. I think she is not a candidate for Eliquis. Continue baby aspirin. Not on commercial helicopter pilot due to DNRCC status #2. Non-NSTEMI, unclear type I, primary event or type II, due to increased demand from A. fib RVR/hyperthyroidism, : Patient seen by aligner barrel and receiver. C urrently on medical management to treat underlying precipitating factor, A. fib with RVR. Correct hypokalemia and other underlying electrolyte abnormality. 11/24: Patient is hyperkalemic. Potassium supplement discontinued. 1 dose Kayexalate given. #3. 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 fib with RVR with history of coronary artery status post PCI and CABG, severe valvular heart disease, MR, TR and moderate to severe pulmonary hypertension : Chest x-ray individually reviewed shows increased pulmonary vascular congestion status post AICD placement, device interrogation requested, 11/19/2018 echocardiogram with mildly dilated LV, EF 40 to 45%, regional wall motion abnormalities noted, stage II diastolic dysfunction, moderately enlarged LA, mild MVI, mild TVI, RVSP 36 mmHg reportedly. Continue aspirin, Eliquis, statin, metoprolol, bumex, not on GERRY inhibitor or ARB. On 11/23/2021, 2D echo shows EF 25% decrease from the previous 1 of 40 to 45%. Moderately dilated RV, global RV systolic dysfunction, LA mildly enlarged, and mitral valve thickening and calcification. At least severe 3+ MR, 3+ TR with mild diffuse intimal thickening. RVSP 52?65 moderate to severe pulmonary hypertension 11/24: BP is 126/81 better. Continue supportive medications Bumex, changed to IV. Continue other medications as permitted by her blood pressure 11/25: As patient blood pressure is better, Bumex increased to 1 mg IV twice daily. Patient had shortness of breath and labored breathing in the morning 11/26: Discussed with food order expediter. Titrated the dose of Bumex 0.5 mg IV twice daily. Hypokalemia, hypomagnesemia, potassium and magnesium are getting replaced. Started on spironolactone 25 mg daily. Monitor closely the electrolytes #4.COPD:maintain on oxygen with wean as tolerated to room air, continue budeson jorge duonebs given tachycardia upon presentation, PRN albuterol, HOB, IS parameters. #5. Diabetes mellitus type II: Accu-Cheks insulin is covered with below sliding scale #6. Hypertension: Blood pressure was low on 11/23 in systolic 90s. Mild improvement on 11/24 #7. Hyperlipidemia: Continue home statin regimen. #8. Currently hyperthyroidism with history of hypothyroidism: TSH 5.17 and free T4 1.53 elevated suggestive of hyperthyroidism although patient has history of hypothyroidism. At home, the patient on Synthroid 75 mcg daily, discontinued. Thyroid function test difficult to interpret as patient is acutely sick and usually patient of hyperthyroidism due to high Synthroid dose should have low TSH and high free T4. Repeat thyroid function test after 1 week on baseline. #9. Acute liver injury exact etiology unclear: Patient denies any heavy alcohol use, history of new medication or herbal medication. Denies history of chronic hepatitis including BNC. Patient has been Covid vaccinated and boosted. Liver chemistry was normal in June 2020. Came with ALT at 89, AST 943, total bili 3.0. Alkaline phosphatase 45 normal GGT 51 normal. CK 56, LDH 670. Overall, it seems mainly hepatocellular necroinflammatory pattern. Monitor liver test. Patient not in hypotension. Viral hepatitis panel ordered. May be due to recent viral flulike infection OR DILI. Right upper quadrant sonogram ordered. Acetaminophen, TriCor, exemestane, loratadine, Pentoxifylline AND pentoxifylline 11/25: Liver ultrasound shows fatty infiltration, small ascites and pericholecystic fluid 11/26: Liver profile is improving. I think SAUL was mostly due hypotension. Patient's blood pressure was in 80s and low 90s during the early part of hospitalization 11/23. 10. Acute upper GI bleed, 2 episodes on 11/23: On IV Protonix. H&H did not drop. Continue baby aspirin. Eliquis discontinued 11. Acute kidney injury with hyperkalemia: Patient admitted with creatinine 0.84 increase from 1.25, 2.1 and 1.99. Most likely prerenal/ATN from heart failure, non-NSTEMI/cardiorenal disease. 12. Leukocytosis with lymphopenia, exact etiology unclear, patient did not have fever or any focus of infection including UTI, cough pertaining to URI or pneumonia, abdominal pain. Blood culture, UA, urine culture ordered. 11/25: Preliminary blood culture shows gram-negative vianey. Started on IV Zosyn first dose now. Discussed with nursing staff 11/26: Blood culture showing gram-negative rods. Leukocytosis with lymphopenia are improving. Anxiety and depression, dementia unclear type and classification, history of breast cancer unclear staging type and classification, GERD: continue patient home duloxetine regimen. Follow-up as an outpatient. Patient on implants at home. Breast cancer seems in remission. DVT prophylaxis: SCDs, Eliquis discontinued due to GI bleed. CODE status: Poor prognosis. DNR CC hospice care I discussed with the aligner barrel and receiver Dr. Rojas today and we agreed that patient is palliative/hospice appropriate. She has multiple active issues going on including acute on chronic systolic and diastolic combined heart failure, recent echo EF 25%, acute hypoxic respiratory failure, acute liver injury, leukocytosis 36,000, lymphopenia, macrocytosis anemia, hyperkalemia, acute kidney injury along with comorbidities of dementia and others as mentioned in the progress no te. On 11/24 I talked to the patient's son who is unfortunately also visually impaired and hearing impaired, about the recent acute change in clinical condition. Cordage status was changed to DNRCC hospice care on 11/23/2021. Hospice is consulted. Patient is unwanted for inpatient hospice unit in [facility]. Discussed with nursing staff and field case manager/. 11/25: Labs discontinued yesterday as patient son signed hospice care in afternoon with hospice nurse. Today he he has questions about medications that could be stopped if he chooses hospice. I talked to the patient over the phone and gave the meaning of hospice and subjective used to make the patient comfortable with expected life expectancy less than 6 months. The aim is more symptomatic management. I talked to the dialysis social worker and urged hospice nurse to talk to him so that he gets his questions answered. 11/26: Yesterday patient to talk with hospice decided to hold off hospice nurse and decide later when patient is more awake and alert. He will discuss to hospice nurse when patient is transferred to [facility]. Therefore DNRCC but no hospice Total time of the visit including total time spent in counseling or coordination of care, (more than 50% of the total time, spent in obtaining medical information from nurses and other ancillary care providers,explaining to the patient about labs, imaging, diagnosis and management), addressing acute liver injury, meds reconciliation, discussion with aligner barrel and receiver, patient's son, patient's NIECE present in the room review of labs and imaging is 40 minutes. Clinical Impression(s) from Imaging Studies Chest X-Ray 11/22/21 21:24 IMPRESSION: 1. Mild cardiomegaly and likely mild pulmonary vascular congestion. No other evidence of acute cardiopulmonary disease. Electronically Signed: Joe Gillis, at 22:38 EDT , Echocardiogram 11/22/21 23:21 Interpretation Summary Moderately dilated left ventricle. The estimated ejection fraction is 25 %. D shaped septum in systole and diastole. Moderately dilated right ventricle. Moderate global right ventricular systolic dysfunction. The left atrium is mildly enlarged. Mild focal mitral valve calcification of the posterior leaflet. Mild diffuse mitral valve thickening. Mild papillary muscle dysfunction of the mitral valve. Moderately severe (3+) eccentric mitral valve insufficiency. Moderately severe (3+) tricuspid valve insufficiency. Mild diffuse aortic valve thickening. Mild focal aortic valve calcification. Trivial pulmonic valve insufficiency. Echolucency compatible with a pleural effusion. Right ventricular systolic pressure estimated to be 52 mmHg. Unable to assess diastolic dysfunction. _ Ordering Physician: Sindi Parker Referring Physician: Roscoe Bradley Performed By: Ric Franco RCS Abdomen Ultrasound 11/23/21 07:32 IMPRESSION: Fatty infiltration of the liver. Small amount of ascites and pericholecystic fluid. Right renal cyst. Charges/Coding Visit Charges Inpatient E&M: 06776 Subs Hosp L3
[2021-11-26 10:00] VITALS: BP 134/80; PULSE 86; RESP 16; TEMP 37.2; O2SAT 93
--- NOTE | 2021-11-26 10:14 | CON.PCM.RE_ITS ---
Assessment & Plan Assessment/Plan (1) SAUL (acute kidney injury): PLAN: -The patient did have SAUL with serum creatinine peaking so far at 2.10 mg/dL on 11/24/2021. -Baseline renal function is normal. Serum creatinine on 11/22/2021 was 0.84 mg/dL. -I suspect that SAUL was due to prerenal azotemia which was likely related to hypotension in the setting of A. fib with RVR and sepsis. -Renal function is improving despite diuretic. -The patient appears to be euvolemic. Okay to continue bumetanide at 0.5 mg IV twice a day. -Continue to watch renal function on diuretic. We may be able to transition the patient to oral bumetanide by tomorrow. -We will continue to monitor renal function while the patient is being diuresed. -We will continue to monitor renal function, volume status, electrolytes, and acid-base status. (2) Hypokalemia: PLAN: -Hypokalemia is likely due to diuresis along with hypomagnesemia. -Agree with potassium replacement especially since the patient has a history of atrial fibrillation. -Replace magnesium deficit as well. -We will continue to monitor potassium and magnesium level. (3) Hypomagnesemia: PLAN: -Hypomagnesemia is also likely due to diuresis. -Replace magnesium deficit and recheck. (4) Essential hypertension: PLAN: -BP is controlled on current medications. She is on amlodipine and metoprolol. -BP should improve further with spironolactone that was added today for heart failure. -If renal function and BP remains stable over the next few days, we can consider adding GERRY inhibitor for heart failure with reduced ejection fraction. (5) Ischemic cardiomyopathy: HPI Consult Data Date of Consult: 11/26/21 HPI Narrative Reason for Consultation: SAUL and volume management HPI Narrative: The patient is a 81-year-old woman with past history of type 2 diabetes mellitus, CAD status post PCI/CABG, ischemic cardiomyopathy with heart failure with reduced ejection fraction (EF 25%), hypertension, COPD, hypothyroidism, atrial fibrillation, and dementia. The patient was admitted to the hospital on 11/22/2021 with debility, fatigue can shortness of breath. The patient also had palpitation and was found to have atrial fibrillation with rapid ventricular rate. The patient is being treated for acute hypoxic respiratory failure with diuretic. She is also on metroprolol. The patient is being treated for gram-positive cocci bacteremia as well with antimicrobial. Nephrology is asked to see the patient because of SAUL. Serum creatinine increased to 2.10 mg/dL on 11/24/2021. Serum creatinine on 11/22/2021, on presentation, was 0.84 mg/dL. The patient denies current chest pain. She denies dyspnea at rest. There has been no recurrence of palpitation. She denies nausea, vomiting, or diarrhea. The patient denies lower urinary tract symptoms. She had not been on GERRY inhibitor or ARB. Her weight has been decreasing with diuretic. [facility] Medical History (Updated 11/26/21 @ 10:[address] Haris Smalls MD) Acute CA, inferoposterior wall, subsequent episode of care Anemia Angina pectoris Atherosclerotic heart disease of [place] coronary artery without angina pectoris Atrial fibrillation Blindness of both eyes Body mass index (bmi) 26.0-26.9, adult Breast cancer Cancer Chronic systolic congestive heart failure COPD (chronic obstructive pulmonary disease) Debility Diabetes mellitus Essential hypertension Former smoker Hepatic insufficiency History of steroid therapy HLD (hyperlipidemia) HTN (hypertension) Hypothyroidism Implantable cardioverter-defibrillator (ICD) in situ Irregular heart beat Ischemic cardiomyopathy Monomorphic ventricular tachycardia Non-ST elevation (NSTEMI) myocardial infarction Nonrheumatic mitral valve regurgitation Nonrheumatic tricuspid (valve) insufficiency Old myocardial infarction Pacemaker Palpitations Paroxysmal a-fib Paroxysmal SVT (supraventricular tachycardia) Pre-syncope Presence of biventricular automatic cardioverter/defibrillator (AICD) Restless legs Right leg pain Shortness of breath Shortness of breath Syncope Ventricular tachyarrhythmia Ventricular tachycardia (paroxysmal) Wears hearing aid in both ears Home Medications duloxetine 60 mg PO DAILY 03/24/16 [History Last Taken 11/28/18] levothyroxine 75 mcg PO DAILY 03/24/16 [History Last Taken 11/28/18] vitamins A,C,V-souz-lweslh 1 ea PO QHS 03/24/16 [History Last Taken 11/27/18] cholecalciferol (vitamin D3) 50,000 unit PO MO 09/18/16 [History Last Taken 0 11/25/18] exemestane 25 mg tablet 25 mg PO DAILY 04/16/18 [History Last Taken 11/28/18] pravastatin 40 mg tablet 40 mg PO QHS 12/03/17 [History Last Taken 11/27/18] pregabalin 100 mg capsule 100 mg PO QHS 12/03/17 [History Last Taken 11/27/18] albuterol sulfate [ProAir HFA] 2 puff INHALATION TID PRN 10/11/18 [History Last Taken 11/26/18] donepezil [Aricept] 5 mg PO DAILY 10/11/18 [History Last Taken 11/28/18] gabapentin [Neurontin] 100 mg PO QHS 10/11/18 [History Last Taken 11/27/18] multivitamin with iron 1 tab PO BID 10/11/18 [History Last Taken 11/28/18] palbociclib [Ibrance] 125 mg PO DAILY 10/11/18 [History Last Taken 11/28/18] propylene glycol [Systane Balance] 1 drp RIGHT EYE BID 10/11/18 [History Last Taken 11/28/18] trazodone 50 mg PO QHS 10/11/18 [History Last Taken 11/27/18] [] 160 mg PO DAILY 11/19/18 [History Last Taken 11/28/18] melatonin 10 mg PO QHS 11/19/18 [History Last Taken 11/27/18] apixaban [Eliquis] 2.5 mg PO BID 11/28/18 [History Last Taken 11/28/18] aspirin 81 mg PO DAILY 11/28/18 [History Last Taken 11/28/18] amlodipine 5 mg PO DAILY #0 tab 11/25/21 [Rx Last Taken 11/28/18] amoxicillin-pot clavulanate [Augmentin] 1 tab PO BID #20 tab 11/25/21 [Rx Last Taken Unknown] budesonide 0.5 mg INHALATION BID.RT #0 ml 11/25/21 [Rx Last Taken Unknown] bumetanide 0.5 mg PO BIDCM #0 tab 11/25/21 [Rx Last Taken 11/28/18] ferrous sulfate [FeroSul] 325 mg PO QODAY@1200 #0 tab 11/25/21 [Rx Last Taken Unknown] insulin lispro [Humalog KwikPen Insulin] See Protocol SUBCUT ACHS #0 ml 11/25/21 [Rx Last Taken Unknown] isosorbide mononitrate 60 mg PO DAILY #0 tab 11/25/21 [Rx Last Taken 11/28/18] menthol-zinc oxide [Calmoseptine] 1 applic TOPICAL BID #0 g 11/25/21 [Rx Last Taken Unknown] metoprolol tartrate 50 mg PO BID #0 tab 11/25/21 [Rx Last Taken Unknown] pantoprazole [Protonix] 40 mg PO BID #60 tab 11/25/21 [Rx Last Taken Unknown] Allergy/AdvReac Type Severity Reaction Status Date / Time No Known Allergies Allergy Verified 11/22/21 21:08 Family History Son Asthma Father Cancer Mother Cancer Brother Cancer Surgical History Aortocoronary bypass status (~12/08/02) History of coronary artery stent placement History of mastectomy Postsurgical percutaneous transluminal coronary angioplasty (PTCA) status Presence of stent in coronary artery (~11/30/01) S/P implantation of automatic cardioverter/defibrillator (AICD) Social History (Updated 11/22/21 @ 22:[address] Sindi Parker MD) household members: none Smoking Status: Former smoker alcohol intake: never substance use type: does not use ROS ROS Narrative 05/29 ROS was done. Please see HPI. Physical Exam Narrative General: Alert and oriented x2 HEENT: Normocephalic, atraumatic. PERRLA, EOMI. Mucous membrane moist without erythema or exudate. Neck: Supple. No JVD. Heart: Irregularly irregular S1, S2. No rubs or murmurs. Lungs: Clear to auscultation anteriorly. Fine crackles at bases on the right lower lobe. Abdomen: Normal bowel sounds. Abdomen is soft, nontender, no guarding or rebound. Extremities: No lower extremity edema. There is no clubbing or cyanosis. Musculoskeletal: Full passive range of motion. No joint swelling. Skin: Warm and dry. No rash. Psychiatric: Normal mood and affect. Lab / Micro Data Result Diagrams: 11/26/21 07:09 11/26/21 07:09 Labs: Laboratory Results - last 24 hr 11/24/21 04:09: Hepatitis A IgM Ab Negative, Hep Bs Antigen Negative, Hep B Core IgM Ab Negative, Hepatitis C Ab (EIA) <0.1 11/25/21 11:45: POC Glucose 187 H 11/25/21 12:33: Sodium 136, Potassium 2.8 L, Chloride 96 L, Carbon Dioxide 36.0 H, Anion Gap 4 L, BUN 40 H, Creatinine 1.12 H, Estim Creat Clear Calc 34.59, Est GFR (MDRD) Af Amer 60, Est GFR (MDRD) Non-Af 50 L, BUN/Creatinine Ratio 35.7 H, Glucose 169 H, Calcium 8.6, Magnesium 1.6, Total Bilirubin 3.20 H, AST 1926 H, ALT 2114 H, Alkaline Phosphatase 54, Total Creatine Kinase 29, Total Protein 6.1 L, Albumin 3.5, Globulin 2.6, Albumin/Globulin Ratio 1.3 11/25/21 12:33: Phosphorus 1.7 L 11/25/21 13:25: WBC 15.2 H, RBC 2.64 L, Hgb 10.4 L, Hct 28.7 L, MCV 108.7 H, MCH 39.4 H, MCHC 36.2 H D, RDW Std Deviation 60.5 H, RDW Coeff of Ella 15.3 H, Plt Count 261, MPV 12.2 H, Immature Gran % (Auto) 0.500, Neut % (Auto) 80.5 H, Lymph % (Auto) 8.9 L, [place] % (Auto) 7.1, Eos % (Auto) 2.8, Baso % (Auto) 0.2, Absolute Neuts (auto) 12.3 H, Absolute Lymphs (auto) 1.36, Nucleated RBC % 0.7 11/25/21 16:19: POC Glucose 134 H 11/25/21 16:20: Urine Color Yellow, Urine Clarity Clear, Urine pH 5.0, Ur Specific [place] 1.010, Urine Protein Negative, Urine Glucose (UA) Normal, Urine Ketones Negative, Urine Occult Blood Negative, Urine Nitrite Negative, Urine Bilirubin Negative, Urine Urobilinogen 1 H, Ur Leukocyte Esterase Negative, Urine RBC 0 SEEN, Urine WBC 0 SEEN, Ur Squamous Epith Cells 0 SEEN, Urine Bacteria 0 SEEN, Urine Mucus 0 SEEN 11/25/21 16:20: Urine Osmolality 324, Ur Random Sodium 55, Urine Creatinine 16.40 11/25/21 22:36: POC Glucose 191 H 11/26/21 06:06: POC Glucose 126 H 11/26/21 07:09: WBC 11.2 H, RBC 2.61 L, Hgb 10.2 L, Hct 29.1 L, MCV 111.5 H, MCH 39.1 H, MCHC 35.1, RDW Std Deviation 63.5 H, RDW Coeff of Ella 15.7 H, Plt Count 247, MPV 12.0, Immature Gran % (Auto) 1.500 H, Neut % (Auto) 72.8 H, Lymph % (Auto) 10.7 L, Sutton % (Auto) 10.0, Eos % (Auto) 4.6, Baso % (Auto) 0.4, Absolute Neuts (auto) 8.1 H, Absolute Lymphs (auto) 1.20, Nucleated RBC % 3.0 11/26/21 07:09: Sodium 139, Potassium 3.0 L, Chloride 96 L, Carbon Dioxide 37.0 H, Anion Gap 6, BUN 32 H, Creatinine 0.96, Estim Creat Clear Calc 40.36, Est GFR (MDRD) Af Amer 72, Est GFR (MDRD) Non-Af 59 L, BUN/Creatinine Ratio 33.2 H, Glucose 141 H, Calcium 8.6, Magnesium 1.4 L, Total Bilirubin 2.80 H, AST 933 H, ALT 1657 H, Alkaline Phosphatase 58, Total Protein 6.1 L, Albumin 3.4, Globulin 2.7, Albumin/Globulin Ratio 1.3 11/26/21 07:09: Phosphorus 3.6 Micro: Microbiology 11/24/21 15:30 Blood Culture (Wb) - Arm Right Blood Culture - Preliminary Gram negative vianey Rhythm Strip Rhythm Strip: A-fib Rate: 144 Ectopy: PVC(s) Radiology Impression Renal Ultrasound 11/25/21 13:41 IMPRESSION: No hydronephrosis. at 1524 Reported and signed by: Juan Murdock MD Electronically Signed: Juan Murdock MD at 15:23 EDT Reading Location ID and State: [address] [place] [address] Tel , Service support ,
[2021-11-26] MEDS: Insulin Lispro 100 UNIT/ML INSULN.PEN SC ×2 (11:21→21:05)
[2021-11-26] MEDS: Spironolactone 25 MG Tablet PO (11:21)
[2021-11-26] MEDS: Acetaminophen 325 MG Tablet 650 MG PO (11:22)
[2021-11-26] MEDS: Potassium Chloride Oral Tablet 20 MEQ PO (11:22)
[2021-11-26] MEDS: Ferrous Sulfate 325 MG Tablet PO (11:22)
[2021-11-26 12:30] LABS: Bedside Glucose 165 mg/dL (74-106)
--- NOTE | 2021-11-26 16:22 | CASEMGMT ---
Social Work PT evaluation [facility] PLAN: [facility] pending pre-cert Eric HARRELL, PATRICK
[2021-11-26 17:51] LABS: Bedside Glucose 130 mg/dL (74-106)
[2021-11-26 19:05] VITALS: PULSE 82; RESP 14; O2SAT 93
[2021-11-26] MEDS: Glucerna Shake 120 ML LIQUID PO (21:05)
[2021-11-26 21:12] VITALS: BP 102/58; PULSE 77; RESP 17; TEMP 36.6; O2SAT 94
[2021-11-26 21:16] VITALS: BP 102/58; PULSE 77
[2021-11-26] MEDS: traZODone 50 MG Tablet PO (21:16)
[2021-11-26] MEDS: MELATONIN 10 MG TABLET PO (21:17)
[2021-11-26] MEDS: Pregabalin 50 MG Capsule 100 MG PO (21:26)
[2021-11-26 21:31] LABS: Bedside Glucose 181 mg/dL (74-106)
[2021-11-27 05:59] LABS: Absolute Neutrophil Count 10.4 X10^3/uL (2.0-7.7); Basophil# 0.11 X10^3/uL; Basophil% 0.8 % (0-1); Eosinophil# 0.59 X10^3/uL; Eosinophils% 4.2 % (0-5); Hematocrit 29.8 % (37-47); Lymphocyte % 9.3 % (19-41); Mean Corp Hgb Conc 33.6 g/dL (32-36); Mean Corpuscular Hgb 38.2 pg (27.0-32.0); Mean Corpuscular Volume 113.7 fL (81-99); Mean Platelet Vol. 12.4 fl (6.2-12.0); Monocyte# 1.14 X10^3/uL; Monocyte% 8.1 % (0-10); NRBC Flagged by Analyzer 1.5 % (0-5); Neutrophil % 74.3 % (47-70); POSITIVE MORPHOLOGY YES; Platelet Count 226 K/mm3 (150-450); RBC Distribution Width CV 15.8 % (11.6-14.6); RBC Distribution Width SD 65.7 fl (35.1-43.9); Red Blood Count 2.62 M/mm3 (4.2-5.4)
[2021-11-27 06:08] LABS: Differential Indicated SCAN CRITERIA MET
[2021-11-27 06:39] LABS: ALB/GLOB Ratio 1.2 RATIO (0.9-2.4); AST(SGOT) 424 U/L (15-37); Alanine Aminotransfer ALT/SGPT 1084 U/L (13-56); Albumin, Serum 3.3 g/dL (3.2-5.0); Alkaline Phosphatase 60 U/L (45-117); Anion Gap 6 (5-15); BUN 32 mg/dL (7-18); Calcium,Total 8.8 mg/dL (8.5-10.1); Chloride 98 mmol/L (98-107); Creatinine, Serum 0.91 mg/dL (0.55-1.02); EST Glomerular Filtration Rate 63 mL/min (>60); Est Glom Filt Rate - Afr Amer 76 mL/min (>60); Estimated Creatinine Clearance 42.58 ml/min; Globulin 2.8 g/dL (2.2-4.2); Glucose 184 mg/dL (74-106); Magnesium 1.8 mg/dL (1.6-2.6); Potassium 3.5 mmol/L (3.5-5.1); Protein, Total 6.1 g/dL (6.4-8.2); Sodium Level 137 mmol/L (136-145)
[2021-11-27 06:44] LABS: Anisocytosis 2+; Differential Comment SCANNED; Macrocytosis 2+; Ovalocyte RARE
[2021-11-27 06:51] VITALS: PULSE 82; RESP 16; O2SAT 93
[2021-11-27] MEDS: Budesonide Respules 0.5 MG/2 ML AMPUL.NEB. INHALATION ×2 (06:51→19:16)
[2021-11-27] MEDS: Magnesium Chloride 64 MG Delay Rel.Tablet 128 MG PO ×3 (06:59→21:31)
[2021-11-27] MEDS: Insulin Lispro 100 UNIT/ML INSULN.PEN SC ×3 (07:03→21:29)
[2021-11-27 07:20] LABS: Bedside Glucose 164 mg/dL (74-106)
[2021-11-27 09:01] VITALS: BP 136/61; PULSE 97
[2021-11-27] MEDS: Donepezil HCl 5 MG Tablet PO (09:01)
[2021-11-27] MEDS: Potassium Chloride Oral Tablet 20 MEQ 40 MEQ PO (09:01)
[2021-11-27] MEDS: amLODIPine 5 MG Tablet PO (09:01)
[2021-11-27] MEDS: Metoprolol Tartrate 50 MG Tablet PO ×2 (09:01→21:31)
[2021-11-27] MEDS: Aspirin E.C. 81 MG Tablet PO (09:02)
[2021-11-27] MEDS: Bumetanide 1 MG/4 ML Vial 0.5 MG IV (09:03)
[2021-11-27] MEDS: Glucerna Shake 120 ML LIQUID PO ×3 (09:03→21:37)
[2021-11-27] MEDS: Glycerin/Hypromellose/PEG400 15 ml Bottle 1 DRP RIGHT EYE ×2 (09:03→21:30)
[2021-11-27] MEDS: Menthol/Lanolin/Calamine/Znox 113 GM Tube 1 APPLIC TOPICAL ×2 (09:04→21:32)
[2021-11-27] MEDS: Spironolactone 25 MG Tablet PO (09:11)
[2021-11-27 09:33] VITALS: BP 136/61; PULSE 97; RESP 18; TEMP 36.8; O2SAT 98
--- NOTE | 2021-11-27 10:07 | PN.HOSP_ITS ---
Subjective Subjective Seen and examined. Follow-up for gram-negative vianey bacteremia and multiple active issues and other comorbidities. Objective Data Objective Data Vital Signs: Vital Signs Temp Pulse Resp BP Pulse Ox 98.3 F 97 18 136/61 H 98 11/27/21 09:33 11/27/21 09:33 11/27/21 09:33 11/27/21 09:33 11/27/21 09:33 Oxygen Flow Rate (L/min) 2 Oxygen Delivery Method Nasal Cannula Weight: 127 lb 10.362 oz Body Mass Index (BMI) 22.1 Intake & Output: Intake and Output for Last 24 Hours 11/25/21 11/26/21 11/27/21 23:59 23:59 23:59 Intake Total 1252.71 / 1252.71 1172.5433 / 1172.5433 157.08 / 157.08 Output Total 600 / 1100 500 / 500 Balance 652.71 / 152.71 672.5433 / 672.5433 157.08 / 157.08 Lab / Micro Data Result Diagrams: 11/27/21 05:00 11/27/21 05:00 Labs: Laboratory Results - last 24 hr 11/26/21 11:20: POC Glucose 165 H 11/26/21 17:39: POC Glucose 130 H 11/26/21 21:02: POC Glucose 181 H 11/27/21 05:00: WBC 14.0 H, RBC 2.62 L, Hgb 10.0 L, Hct 29.8 L, MCV 113.7 H, MCH 38.2 H, MCHC 33.6, RDW Std Deviation 65.7 H, RDW Coeff of Ella 15.8 H, Plt Count 226, MPV 12.4 H, Immature Gran % (Auto) 3.300 H, Neut % (Auto) 74.3 H, Lymph % (Auto) 9.3 L, Tate % (Auto) 8.1, Eos % (Auto) 4.2, Baso % (Auto) 0.8, Absolute Neuts (auto) 10.4 H, Absolute Lymphs (auto) 1.30, Nucleated RBC % 1.5, Differential Comment SCANNED, Anisocytosis 2+, Macrocytosis 2+, Ovalocytes RARE 11/27/21 05:00: Sodium 137, Potassium 3.5, Chloride 98, Carbon Dioxide 33.0 H, Anion Gap 6, BUN 32 H, Creatinine 0.91, Estim Creat Clear Calc 42.58, Est GFR (MDRD) Af Amer 76, Est GFR (MDRD) Non-Af 63, BUN/Creatinine Ratio 35.0 H, Glucose 184 H, Calcium 8.8, Magnesium 1.8, Total Bilirubin 2.60 H, AST 424 H, ALT 1084 H, Alkaline Phosphatase 60, Total Protein 6.1 L, Albumin 3.3, Globulin 2.8, Albumin/Globulin Ratio 1.2 11/27/21 07:03: POC Glucose 164 H Micro: Microbiology 11/24/21 15:30 Blood Culture (Wb) - Arm Right Blood Culture - Preliminary Kluyvera intermedia GNR lactose timber girdler 11/25/21 16:20 Urine, Clean Catch Urine Culture - Preliminary Culture exhibits no growth. 11/23/21 18:30 Stool Stool Occult Blood (CRUZ) - Final Occult Blood Positive Rhythm Strip Rhythm Strip: A-fib Rate: 144 Ectopy: PVC(s) Physical Exam Narrative Seen and examined. Patient is eating her breakfast. Good appetite. Afebrile. Blood pressure in normal range. Physical Examination: General: Alert, oriented x3 slow to respond. HEENT: Atraumatic, PERRLA, EOMI, Normocephalic Oral: Oral mucosa dry. No Gingival or Mucosal Lesions/ Ulcerations Neck: Supple, No JVD, Negative Carotid Bruits Lungs: Air entry diminished in bilateral lung bases. Bibasilar coarse rhonchi. Cardiovascular: Sinus rhythm with multiple PVCs, irregular heartbeat. CABG scar. Right subclavicular AICD. Systolic murmur LLSB and cardiac apex Abdomen: Bowel Sounds Present, Soft, Non Tender, Non-Distended. No palpable mass. Liver not enlarged : No renal angle tenderness. No suprapubic tenderness. Extremities: No thrombophlebitis in the right arm no edema, Capillary Refill Less than 3 Seconds Skin: No rashes, No breakdown Musculoskeletal: Mild to moderate muscle atrophy extremities. No Tenderness to Palpation of Joints or Extremities Neurological: Cranial nerves II-XII grossly intact, DTR 2+/4. Psych/Mental Status: Flat affect. Dementia Assessment & Plan Assessment/Plan (1) Atrial fibrillation with rapid ventricular response: (2) Elevated troponin: PLAN: The patient is an 81 y/o F with multiple comorbidities admitted with shortness of breath, fatigue, dyspnea on exertion and chest discomfort. On evaluation in ED was found to be A. fib with RVR. #1. Paroxsymal atrial fibrillation with RVR: Patient is admitted in PCU. Twelve-lead EKG shows A. fib with RVR. Multiple PVCs, incomplete left bundle branch block with nonspecific ST-T abnormality. Fisherman Helper consulted. Patient on metoprolol, Cardizem drip and Eliquis. night monitor shows sinus tachycardia with multiple PVCs. 11/24: Heart rate is controlled. 11/25: heart rate is controlled. Blood pressure 118/57. 11/26. Heart rate is controlled. Eliquis was discontinued on 11/23 after she had hypotension and GI bleed. Her blood pressure recovered since then. I think she is not a candidate for Eliquis. Continue baby aspirin. Not on quality assurance monitor body due to DNC status #2. Non-NSTEMI, unclear type I, primary event or type II, due to increased demand from A. fib RVR/hyperthyroidism, : Patient seen by digital watch assembler. Currently on medical management to treat underlying precipitating factor, A. fib with RVR. Correct hypokalemia and other underlying electrolyte abnormality. 11/24: Patient is hyperkalemic. Potassium supplement discontinued. 1 dose Kayexalate given. #3. 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 fib with RVR with history of coronary artery status post PCI and CABG, severe valvular heart disease, MR, TR and moderate to severe pulmonary hypertension : Chest x-ray individually reviewed shows increased pulmonary vascular congestion status post AICD placement, device interrogation requested, 11/19/2018 echocardiogram with mildly dilated LV, EF 40 to 45%, regional wall motion abnormalities noted, stage II diastolic dysfunction, moderately enlarged LA, mild MVI, mild TVI, RVSP 36 mmHg reportedly. Continue aspirin, Eliquis, statin, metoprolol, bumex, not on GERRY inhibitor or ARB. On 11/23/2021, 2D echo shows EF 25% decrease from the previous 1 of 40 to 45%. Moderately dilated RV, global RV systolic dysfunction, LA mildly enlarged, and mitral valve thickening and calcification. At least severe 3+ MR, 3+ TR with mild diffuse intimal thickening. RVSP 52?65 moderate to severe pulmonary hypertension 11/24: BP is 126/81 better. Continue supportive medications Bumex, changed to IV. Continue other medications as permitted by her blood pressure 11/25: As patient blood pressure is better, Bumex increased to 1 mg IV twice daily. Patient had shortness of breath and labored breathing in the morning 11/26: Discussed with kosher dietary service supervisor. Titrated the dose of Bumex 0.5 mg IV twice daily. Hypokalemia, hypomagnesemia, potassium and magnesium are getting replaced. Started on spironolactone 25 mg daily. Monitor closely the electrolytes 11/27: Bumex changed to oral. Potassium 3.5. On spironolactone. #4.COPD:maintain on oxygen with wean as tolerated to room air, continue budesonide duonebs given tachycardia upon presentation, PRN albuterol, HOB, IS parameters. #5. Diabetes mellitus type II: Accu-Cheks insulin is covered with below sliding scale #6. Hypertension: Blood pressure was low on 11/23 in systolic 90s. Mild improvement on 11/24 #7. Hyperlipidemia: Continue home statin regimen. #8. Currently hyperthyroidism with history of hypothyroidism: TSH 5.17 and free T4 1.53 elevated suggestive of hyperthyroidism although patient has history of hypothyroidism. At home, the patient on Synthroid 75 mcg daily, discontinued. Thyroid function test difficult to interpret as patient is acutely sick and usually patient of hyperthyroidism due to high Synthroid dose should have low TSH and high free T4. Repeat thyroid function test after 1 week on baseline. #9. Acute liver injury exact etiology unclear: Patient denies any heavy alcohol use, history of new medication or herbal medication. Denies history of chronic hepatitis including BNC. Patient has been Covid vaccinated and boosted. Liver chemistry was normal in June 2020. Came with ALT at 89, AST 943, total bili 3.0. Alkaline phosphatase 45 normal GGT 51 normal. CK 56, LDH 670. Overall, it seems mainly hepatocellular necroinflammatory pattern. Monitor liver test. Patient not in hypotension. Viral hepatitis panel ordered. May be due to recent viral flulike infection OR DILI. Right upper quadrant sonogram ordered. Acetaminophen, TriCor, exemestane, loratadine, Pentoxifylline AND pentoxifylline 11/25: Liver ultrasound shows fatty infiltration, small ascites and pericholecystic fluid 11/26: Liver profile is improving. I think SAUL was mostly due hypotension. Patient's blood pressure was in 80s and low 90s during the early part of hospitalization 11/23. 11/27: Transaminases are improving consistently. No right upper quadrant tenderness. 10. Acute upper GI bleed, 2 episodes on 11/23: On IV Protonix. H&H did not drop. Continue baby aspirin. Eliquis discontinued 11. Acute kidney injury with hyperkalemia on CKD stage G3 B stage : Patient adm itted with creatinine 0.84 increase from 1.25, 2.1 and 1.99. Most likely prerenal/ATN from heart failure, non-NSTEMI/cardiorenal disease. 11/27: SAUL resolved. Creatinine 0.91. Continue baseline Bumex. Creatinine clearance is 42 mL/min 12. Leukocytosis with lymphopenia, exact etiology unclear, patient did not have fever or any focus of infection including UTI, cough pertaining to URI or pneumonia, abdominal pain. Blood culture, UA, urine culture ordered. 11/25: Preliminary blood culture shows gram-negative vianey. Started on IV Zosyn first dose now. Discussed with nursing staff 11/26: Blood culture showing gram-negative rods. Leukocytosis with lymphopenia are improving. Anxiety and depression, dementia unclear type and classification, history of breast cancer unclear staging type and classification, GERD: continue patient home duloxetine regimen. Follow-up as an outpatient. Patient on implants at home. Breast cancer seems in remission. 11/27: Blood culture shows Kluyvera intermedia and GNR lactose timber girdler, exact source unclear possible GI as patient had transient upper GI bleed. Urine culture is negative. IV Zosyn discontinued and started on Levaquin, dose adjusted to creatinine clearance DVT prophylaxis: SCDs, Eliquis discontinued due to GI bleed. CODE status: Guarded prognosis. DNR CC I discussed with the digital watch assembler Dr. Rojas and we agreed that patient is palliative/hospice appropriate. She has multiple active issues going on including acute on chronic systolic and diastolic combined heart failure, recent echo EF 25%, acute hypoxic respiratory failure, acute liver injury, leukocytosis 36,000, lymphopenia, macrocytosis anemia, hyperkalemia, acute kidney injury along with comorbidities of dementia and others as mentioned in the progress note. On 11/24 I talked to the patient's son who is unfortunately also visually impaired and hearing impaired, about the recent acute change in clinical condition. Cordage status was changed to DNRCC hospice care on 11/23/2021. Hospice is consulted. Patient is unwanted for inpatient hospice unit in [facility]. Discussed with nursing staff and case technician/. 11/25: Labs discontinued yesterday as patient son signed hospice care in afternoon with hospice nurse. Today he he has questions about medications that could be stopped if he chooses hospice. I talked to the patient over the phone and gave the meaning of hospice and subjective used to make the patient comfortable with expected life expectancy less than 6 months. The aim is more symptomatic management. I talked to the clinical social work therapist and urged hospice nurse to talk to him so that he gets his questions answered. 11/26: Yesterday patient to talk with hospice decided to hold off hospice nurse and decide later when patient is more awake and alert. He will discuss to hospice nurse when patient is transferred to alf. Therefore DNRCC but no hospice Total time of the visit including total time spent in counseling or coordination of care, (more than 50% of the total time, spent in obtaining medical information from nurses and other ancillary care providers,explaining to the patient about labs, imaging, diagnosis and management), addressing acute liver injury, meds reconciliation, discussion with digital watch assembler, patient's son, omar sauer's NIECE present in the room review of labs and imaging is 40 minutes. Discharge plan: Initially son agreed for hospice care but he is not ready for now. Therefore labs were followed. Active management of active medical issues. Her son wants to see how she does in the next 2 to 3 weeks and then will discuss about hospice to her mother and hospice nurse in [facility]. Pre-CERT pending for [facility] possible discharge tomorrow. Discharged on antibiotic for gram-negative vianey bacteremia for total of 10 days and Bumex 0.5 mg twice daily along with other medications Clinical Impression(s) from Imaging Studies Chest X-Ray 11/22/21 21:24 IMPRESSION: 1. Mild cardiomegaly and likely mild pulmonary vascular congestion. No other evidence of acute cardiopulmonary disease. Electronically Signed: Joe Gillis DO at 22:38 EDT , Echocardiogram 11/22/21 23:21 Interpretation Summary Moderately dilated left ventricle. The estimated ejection fraction is 25 %. D shaped septum in systole and diastole. Moderately dilated right ventricle. Moderate global right ventricular systolic dysfunction. The left atrium is mildly enlarged. Mild focal mitral valve calcification of the posterior leaflet. Mild diffuse mitral valve thickening. Mild papillary muscle dysfunction of the mitral valve. Moderately severe (3+) eccentric mitral valve insufficiency. Moderately severe (3+) tricuspid valve insufficiency. Mild diffuse aortic valve thickening. Mild focal aortic valve calcification. Trivial pulmonic valve insufficiency. Echolucency compatible with a pleural effusion. Right ventricular systolic pressure estimated to be 52 mmHg. Unable to assess diastolic dysfunction. ____ Ordering Physician: Sindi Parker Referring Physician: Roscoe Bradlye Performed By: Ric Franco RCS Abdomen Ultrasound 11/23/21 07:32 IMPRESSION: Fatty infiltration of the liver. Small amount of ascites and pericholecystic fluid. Right renal cyst. Charges/Coding Visit Charges Inpatient E&M: 34507 Subs Hosp L3
--- NOTE | 2021-11-27 11:33 | PCM.PN.REN ---
Subjective Subjective Following for SAUL/volume management. The patient denies chest pain, shortness of breath, or nausea today. Objective Data Objective Data Vital Signs: Vital Signs Temp Pulse Resp BP Pulse Ox 98.3 F 97 18 136/61 H 98 11/27/21 09:33 11/27/21 09:33 11/27/21 09:33 11/27/21 09:33 11/27/21 09:33 Oxygen Flow Rate (L/min) 2 Oxygen Delivery Method Nasal Cannula Weight: 57.9 kg Body Mass Index (BMI) 22.1 Intake & Output: Intake and Output for Last 24 Hours 11/25/21 11/26/21 11/27/21 23:59 23:59 23:59 Intake Total 1252.71 / 1252.71 1172.5433 / 1172.5433 157.08 / 157.08 Output Total 600 / 1100 500 / 500 Balance 652.71 / 152.71 672.5433 / 672.5433 157.08 / 157.08 Lab / Micro Data Result Diagrams: 11/27/21 05:00 11/27/21 05:00 Labs: Laboratory Results - last 24 hr 11/26/21 11:20: POC Glucose 165 H 11/26/21 17:39: POC Glucose 130 H 11/26/21 21:02: POC Glucose 181 H 11/27/21 05:00: WBC 14.0 H, RBC 2.62 L, Hgb 10.0 L, Hct 29.8 L, MCV 113.7 H, MCH 38.2 H, MCHC 33.6, RDW Std Deviation 65.7 H, RDW Coeff of Ella 15.8 H, Plt Count 226, MPV 12.4 H, Immature Gran % (Auto) 3.300 H, Neut % (Auto) 74.3 H, Lymph % (Auto) 9.3 L, [place] % (Auto) 8.1, Eos % (Auto) 4.2, Baso % (Auto) 0.8, Absolute Neuts (auto) 10.4 H, Absolute Lymphs (auto) 1.30, Nucleated RBC % 1.5, Differential Comment SCANNED, Anisocytosis 2+, Macrocytosis 2+, Ovalocytes RARE 11/27/21 05:00: Sodium 137, Potassium 3.5, Chloride 98, Carbon Dioxide 33.0 H, Anion Gap 6, BUN 32 H, Creatinine 0.91, Estim Creat Clear Calc 42.58, Est GFR (MDRD) Af Amer 76, Est GFR (MDRD) Non-Af 63, BUN/Creatinine Ratio 35.0 H, Glucose 184 H, Calcium 8.8, Magnesium 1.8, Total Bilirubin 2.60 H, AST 424 H, ALT 1084 H, Alkaline Phosphatase 60, Total Protein 6.1 L, Albumin 3.3, Globulin 2.8, Albumin/Globulin Ratio 1.2 11/27/21 07:03: POC Glucose 164 H Micro: Microbiology 11/24/21 15:30 Blood Culture (Wb) - Arm Right Blood Culture - Preliminary [employer] GNR lactose phlebotomy program coordinator 11/25/21 16:20 Urine, Clean Catch Urine Culture - Preliminary Culture exhibits no growth. 11/23/21 18:30 Stool Stool Occult Blood (CRUZ) - Final Occult Blood Positive Rhythm Strip Rhythm Strip: A-fib Rate: 144 Ectopy: PVC(s) Physical Exam Narrative General: NAD HEENT: Normocephalic, atraumatic. PERRLA, EOMI. Mucous membrane moist without erythema or exudate. Neck: Supple. No JVD. Heart: Irregularly irregular S1, S2. No rubs or murmurs. Lungs: Clear to auscultation anteriorly. Abdomen: Normal bowel sounds. Abdomen is soft, nontender, no guarding or rebound. Extremities: No lower extremity edema. There is no clubbing or cyanosis. Assessment & Plan Assessment/Plan (1) SAUL (acute kidney injury): PLAN: -The patient did have SAUL with serum creatinine peaking so far at 2.10 mg/dL on 11/24/2021. -Baseline renal function is normal. Serum creatinine on 11/22/2021 was 0.84 mg/dL. -I suspect that SAUL was due to prerenal azotemia which was likely related to hypotension in the setting of A. fib with RVR and sepsis. -Renal function is improving despite diuretic. -The patient appears to be euvolemic. Agree with switching to oral Bumex today. -Continue to monitor renal function on diuretic. -We will continue to monitor renal function while the patient is being diuresed. -We will continue to monitor renal function, volume status, electrolytes, and acid-base status. (2) Hypokalemia: PLAN: -Hypokalemia was likely due to diuresis along with hypomagnesemia. -Agree with potassium replacement especially since the patient has a history of atrial fibrillation and she is on diuretic. -Potassium level is acceptable today. She is also now on spironolactone which will help. -Replace magnesium deficit as well. -We will continue to monitor potassium and magnesium level. (3) Hypomagnesemia: PLAN: -Hypomagnesemia is also likely due to diuresis. -The patient is on magnesium chloride. -Follow magnesium. (4) Essential hypertension: PLAN: -BP is controlled on current medications. She is on amlodipine and metoprolol. -BP should improve further with spironolactone that was added on 11/26/2021 for heart failure. -If renal function and BP remains stable over the next few days, we can consider adding GERRY inhibitor for heart failure with reduced ejection fraction. (5) Ischemic cardiomyopathy:
[2021-11-27] MEDS: levoFLOXacin 750 MG Tablet PO (11:41)
[2021-11-27 11:51] LABS: Bedside Glucose 166 mg/dL (74-106)
[2021-11-27 17:10] LABS: Bedside Glucose 142 mg/dL (74-106)
[2021-11-27 19:16] VITALS: PULSE 88; RESP 18; O2SAT 95
[2021-11-27 20:34] VITALS: BP 135/85; PULSE 80; RESP 17; TEMP 36.6; O2SAT 94
[2021-11-27 21:31] VITALS: BP 135/85; PULSE 80
[2021-11-27] MEDS: traZODone 50 MG Tablet PO (21:31)
[2021-11-27] MEDS: Bumetanide 0.5 MG Tablet PO (21:31)
[2021-11-27] MEDS: MELATONIN 10 MG TABLET PO (21:31)
[2021-11-27] MEDS: Pregabalin 50 MG Capsule 100 MG PO (21:40)
[2021-11-28] VITALS (7 sets, daily range): BP systolic 123–128; BP diastolic 56–73; PULSE 76–86; RESP 18–20; TEMP 36.3–36.5; O2SAT 94–98
[2021-11-28 00:37] LABS: Bedside Glucose 176 mg/dL (74-106)
[2021-11-28 05:34] LABS: Hemoglobin 9.8 g/dL (12.0-15.0); Mean Corp Hgb Conc 33.8 g/dL (32-36); Mean Corpuscular Volume 115.5 fL (81-99); Mean Platelet Vol. 12.2 fl (6.2-12.0); POSITIVE COUNT YES; POSITIVE MORPHOLOGY YES; Platelet Count 202 K/mm3 (150-450); RBC Distribution Width CV 16.5 % (11.6-14.6); RBC Distribution Width SD 69.9 fl (35.1-43.9); Red Blood Count 2.51 M/mm3 (4.2-5.4); White Blood Count 13.6 K/mm3 (4.4-11.0)
[2021-11-28 05:47] LABS: Differential Indicated MANUAL DIFF
[2021-11-28 05:54] LABS: ALB/GLOB Ratio 1.2 RATIO (0.9-2.4); AST(SGOT) 193 U/L (15-37); Alanine Aminotransfer ALT/SGPT 753 U/L (13-56); Albumin, Serum 3.2 g/dL (3.2-5.0); Alkaline Phosphatase 56 U/L (45-117); Anion Gap 4 (5-15); BUN 27 mg/dL (7-18); BUN/Creat Ratio 35.2 RATIO (10-20); Calcium,Total 8.8 mg/dL (8.5-10.1); Chloride 99 mmol/L (98-107); Creatinine, Serum 0.77 mg/dL (0.55-1.02); EST Glomerular Filtration Rate 77 mL/min (>60); Est Glom Filt Rate - Afr Amer 93 mL/min (>60); Estimated Creatinine Clearance 38.75 ml/min; Globulin 2.7 g/dL (2.2-4.2); Glucose 146 mg/dL (74-106); Potassium 3.9 mmol/L (3.5-5.1); Protein, Total 5.9 g/dL (6.4-8.2); Sodium Level 136 mmol/L (136-145)
[2021-11-28 06:01] LABS: Basophil 1 % (0-1); Eosinophil 7 % (0-5); Lymphocyte 17 % (19-41); Metamyelocyte 1 % (0-1); Monocyte 6 % (0-10); Neutrophil-Segmented 68 % (47-70); Nucleated Red Bld Cells,Manual 4 % (0-5); Total Cells Counted 100 (MANUAL DIFF)
[2021-11-28 06:06] LABS: Platelet Estimate ADEQUATE (ADEQ)
[2021-11-28 06:07] LABS: Polychromasia 1+
[2021-11-28 06:14] LABS: Tear Drop Cell RARE
[2021-11-28] MEDS: Magnesium Chloride 64 MG Delay Rel.Tablet 128 MG PO (06:15)
[2021-11-28 06:19] LABS: Absolute Lymphocyte Count 2.32 X10^3/uL (0.83-4.51); Absolute Neutrophil Count 9.4 X10^3/uL (2.0-7.7); Lymphocyte # 2.32 X10^3/ul (0.83-4.51)
[2021-11-28] MEDS: Insulin Lispro 100 UNIT/ML INSULN.PEN SC ×2 (07:09→20:44)
[2021-11-28 07:15] LABS: Bedside Glucose 319 mg/dL (74-106)
[2021-11-28] MEDS: Budesonide Respules 0.5 MG/2 ML AMPUL.NEB. INHALATION ×2 (07:22→19:01)
[2021-11-28] MEDS: 0.9% Saline Lock 10 ML Syringe IV (09:30)
[2021-11-28] MEDS: Glycerin/Hypromellose/PEG400 15 ml Bottle 1 DRP RIGHT EYE (09:32)
[2021-11-28] MEDS: amLODIPine 5 MG Tablet PO (09:33)
[2021-11-28] MEDS: Metoprolol Tartrate 50 MG Tablet PO ×2 (09:33→20:43)
[2021-11-28] MEDS: Donepezil HCl 5 MG Tablet PO (09:33)
[2021-11-28] MEDS: Aspirin E.C. 81 MG Tablet PO (09:33)
[2021-11-28] MEDS: Bumetanide 0.5 MG Tablet PO ×2 (09:33→20:43)
[2021-11-28] MEDS: Menthol/Lanolin/Calamine/Znox 113 GM Tube 1 APPLIC TOPICAL (09:33)
--- NOTE | 2021-11-28 09:35 | CASEMGMT ---
TOYIN faxed updated information to Madelin [facility]. TOYIN called Madelin [facility] and left her a voice mail requesting return call. Sadaf GRANT
[2021-11-28] MEDS: Spironolactone 25 MG Tablet PO (09:40)
--- NOTE | 2021-11-28 11:18 | CASEMGMT ---
TOYIN has not heard back from Madelin at [facility] so TOYIN called her back and left a voice mail requesting a return call. Sadaf Bright [employer]
[2021-11-28] MEDS: Ferrous Sulfate 325 MG Tablet PO (11:32)
[2021-11-28 11:36] LABS: Bedside Glucose 145 mg/dL (74-106)
--- NOTE | 2021-11-28 12:46 | PCM.PN.HOSP ---
Subjective Subjective Patient has no complaints today. She is currently sitting up in a chair eating breakfast, denies any pain. States she thinks she is going to a nursing facility today. We are currently awaiting pre-CERT. Objective Data Objective Data Vital Signs: Vital Signs Temp Pulse Resp BP Pulse Ox 97.4 F L 86 18 128/73 H 95 11/28/21 09:28 11/28/21 09:33 11/28/21 09:28 11/28/21 09:28 11/28/21 09:28 Oxygen Flow Rate (L/min) 1 Oxygen Delivery Method Room Air Weight: 59.2 kg Body Mass Index (BMI) 22.1 Intake & Output: Intake and Output for Last 24 Hours 11/26/21 11/27/21 11/28/21 23:59 23:59 23:59 Intake Total 1172.5433 / 1172.5433 1042.08 / 1042.08 610 / 610 Output Total 500 / 500 2 / 2 Balance 672.5433 / 672.5433 1042.08 / 1042.08 608 / 608 Lab / Micro Data Result Diagrams: 11/28/21 05:06 11/28/21 05:06 Labs: Laboratory Results - last 24 hr 11/27/21 17:04: POC Glucose 142 H 11/27/21 21:28: POC Glucose 176 H 11/28/21 05:06: WBC 13.6 H, RBC 2.51 L, Hgb 9.8 L, Hct 29.0 L, MCV 115.5 H, MCH 39.0 H, MCHC 33.8, RDW Std Deviation 69.9 H, RDW Coeff of Ella 16.5 H, Plt Count 202, MPV 12.2 H, Neut % (Auto) Not Reportable, Absolute Neuts (auto) 9.4 H, Absolute Lymphs (auto) 2.32, Total Counted 100, Neutrophils % (Manual) 68, Lymphocytes % (Manual) 17 L, Monocytes % (Manual) 6, Eosinophils % (Manual) 7 H, Basophils % (Manual) 1, Metamyelocytes % 1, Nucleated RBCs/100 WBC 4, Diff Path Review May , Platelet Estimate ADEQUATE, Polychromasia 1+, Tear Drop Cells RARE 11/28/21 05:06: Sodium 136, Potassium 3.9, Chloride 99, Carbon Dioxide 33.0 H, Anion Gap 4 L, BUN 27 H, Creatinine 0.77, Estim Creat Clear Calc 38.75, Est GFR (MDRD) Af Amer 93, Est GFR (MDRD) Non-Af 77, BUN/Creatinine Ratio 35.2 H, Glucose 146 H, Calcium 8.8, Total Bilirubin 2.00 H, AST 193 H, ALT 753 H, Alkaline Phosphatase 56, Total Protein 5.9 L, Albumin 3.2, Globulin 2.7, Albumin/Globulin Ratio 1.2 11/28/21 07:08: POC Glucose 319 H 11/28/21 11:30: POC Glucose 145 H Micro: Microbiology 11/25/21 16:20 Urine, Clean Catch Urine Culture - Final Culture exhibits no growth. 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 She indicated she knew she was in the hospital but was unclear on which hospital she was currently in. HEENT head/scalp atraumatic and moist oral mucous membranes HEENT Narrative: Mallampati is 2, no thrush Head and Scalp: normocephalic Eyes PERRL and EOMs intact bilaterally Eyes Narrative: Conjunctiva are mildly pale, no scleral icterus Neck no lymphadenopathy, supple and no JVD Neck Narrative: Trachea is midline, no thyroid enlargement Resp normal respiratory effort, no retractions, no use of accessory muscles and clear to auscultation bilaterally Auscultation: Negative for crackles, rales, rhonchi or wheezes Cardio regular rate, regular rhythm, S1 normal heart sound, S2 normal heart sound, no gallops and no clicks Cardio Narrative: Irregular rhythm, 3 out of 6 systolic murmur loudest at the right upper sternal border GI normal to inspection, nondistended, normoactive bowel sounds, soft to palpation, non-tender and non-distended; Negative for hepatosplenomegaly Extremity no clubbing, cyanosis or edema Peripheral Pulses: Yes pulses 2+ throughout Skin no rashes or lesions noted, no wounds, skin turgor normal, no jaundice, no petechiae and no mottling Skin Narrative: Skin is somewhat delicate Neuro CN's II-XII intact bilaterally, moves all extremities and no focal motor deficits Neuro Narrative: Generalized weakness noted Sensorium / Orientation: awake, alert, oriented to person and oriented to time Speech: speech normal Psych Psych Narrative: Very pleasant and currently is appropriately interactive Assessment & Plan Assessment/Plan (1) SAUL (acute kidney injury): (2) Non-ST elevation (NSTEMI) myocardial infarction: (3) Gram-negative bacteremia: (4) Sepsis: (5) Leukocytosis: (6) Transaminitis: (7) GI bleed: PLAN: Sepsis secondary to gram-negative bacteremia -Patient ended up with hypotension, tachycardia, SAUL, acute liver failure related to the above and therefore meets criteria for sepsis -Blood cultures are growing 2 organisms -Kluyvera intermedia and another GNR LF -Awaiting finalization of cultures -Suspect bacteremia is related to gut translocation with GI bleed -No further evidence of bleeding -Continue Levaquin as ordered -ID consult is pending SAUL secondary to ischemic ATN related to sepsis and A. fib with RVR -Resolved -Appreciate nephrology input PAF with RVR -Patient had issues with rapid ventricular rate during hospitalization and required Cardizem drip -Was on apixaban but had positive stool guaiac with the drop in the hemoglobin and therefore this was discontinued -Would recommend discontinuation definitively with comorbidities and recent bleeding -Continue metoprolol dosing 50 mg p.o. twice daily -Patient remains in A. fib however rate controlled NSTEMI type I versus II -Etiology is unclear per cardiology documentation -No further invasive studies were performed given CODE STATUS change and overall consideration for hospice -Cardiogram was performed and showed an EF of 25% with RV dysfunction and dilation, papillary muscle dysfunction, severe mitral valve insufficiency, severe tricuspid valve insufficiency, and right ventricular systolic pressure of 52 mmHg -Continue aspirin -Goals of care have been altered to DNR CC with probable hospice consultation after discharge Acute on chronic systolic and diastolic heart failure secondary to ischemic cardiomyopathy -Acute heart failure is now compensated -Continue oral Bumex as ordered -Continue Aldactone -Patient remains on room air -Blood pressure remained stable COPD -Continue current treatment -Patient is clinically compensated DM-2 -Continue Accu-Cheks as ordered -Continue SSI Hypertension -Patient has been hypotensive during this hospitalization related to her bacteremia and A. fib with RVR -Pressures improved -Continue to monitor clinically -Antihypertensives/rate controlling medications have been reinitiated PAH who group 2 and 3 -Treatment as noted above Acute liver injury -Suspect may be related to hypotensive episodes -Ultrasound shows hepatosteatosis but otherwise unimpressive -Did recently initiate a new herbal medication -Recommend discontinuation -Statin is on hold secondary to this and ultimately given her change in CODE STATUS would discontinue indefinitely -Clinically stable Acute upper GI bleed -Patient had 2 episodes on 11/23/2021 -Seems to have stabilized -Patient to remain off Eliquis okay to continue aspirin -Hemoglobin remained stable -Suspect bacteremia may be gut translocation in relation to this bleed -Transition PPI to 40 mg p.o. twice daily Acute on chronic anemia -Hemoglobin has stabilized -Continue iron supplementation -Monitor clinically Hyperlipidemia -Statin on hold secondary to transaminitis Diabetic neuropathy -Continue Lyrica Dementia -Continue home medications DVT prophylaxis -SCDs -No chemoprophylaxis secondary to bleeding CODE STATUS -Extensive conversation between Dr. Brar and the son has been pursued and her CODE STATUS was changed to DNR CC with hospice consultation. The son would like to hold off on hospice and talk further with the patient when she is transferred to the nursing facility therefore the CODE STATUS is DNR CC but no hospice has been pursued at this time. I would highly recommend hospice consultation of after discharge Disposition: -Awaiting pre-CERT -Continue antibiotics and awaiting ID consultation for recommendations given 2 organisms are present and I suspect gut translocation as etiology for infection Charges/Coding Visit Charges Inpatient E&M: 15070 Subs Hosp L2
[2021-11-28 13:11] LABS: Pathologist Review Reviewed
--- NOTE | 2021-11-28 13:36 | NURSING ---
This RN updated Lindy Parker via phone with pt's permission.
--- NOTE | 2021-11-28 14:02 | PN.RENAL_ITS ---
Subjective Subjective Following for SAUL Patient denies any complaints. Eating lunch. Objective Data Objective Data Vital Signs: Vital Signs Temp Pulse Resp BP Pulse Ox 97.4 F L 86 18 128/73 H 95 11/28/21 09:28 11/28/21 09:33 11/28/21 09:28 11/28/21 09:28 11/28/21 09:28 Oxygen Flow Rate (L/min) 1 Oxygen Delivery Method Room Air Weight: 59.2 kg Body Mass Index (BMI) 22.1 Intake & Output: Intake and Output for Last 24 Hours 11/26/21 11/27/21 11/28/21 23:59 23:59 23:59 Intake Total 1172.5433 / 1172.5433 1042.08 / 1042.08 610 / 610 Output Total 500 / 500 2 / 2 Balance 672.5433 / 672.5433 1042.08 / 1042.08 608 / 608 Lab / Micro Data Result Diagrams: 11/28/21 05:06 11/28/21 05:06 Labs: Laboratory Results - last 24 hr 11/27/21 17:04: POC Glucose 142 H 11/27/21 21:28: POC Glucose 176 H 11/28/21 05:06: WBC 13.6 H, RBC 2.51 L, Hgb 9.8 L, Hct 29.0 L, MCV 115.5 H, MCH 39.0 H, MCHC 33.8, RDW Std Deviation 69.9 H, RDW Coeff of Ella 16.5 H, Plt Count 202, MPV 12.2 H, Neut % (Auto) Not Reportable, Absolute Neuts (auto) 9.4 H, Absolute Lymphs (auto) 2.32, Total Counted 100, Neutrophils % (Manual) 68, Lymphocytes % (Manual) 17 L, Monocytes % (Manual) 6, Eosinophils % (Manual) 7 H, Basophils % (Manual) 1, Metamyelocytes % 1, Nucleated RBCs/100 WBC 4, Diff Path Review Reviewed, Platelet Estimate ADEQUATE, Polychromasia 1+, Tear Drop Cells RARE 11/28/21 05:06: Sodium 136, Potassium 3.9, Chloride 99, Carbon Dioxide 33.0 H, Anion Gap 4 L, BUN 27 H, Creatinine 0.77, Estim Creat Clear Calc 38.75, Est GFR (MDRD) Af Amer 93, Est GFR (MDRD) Non-Af 77, BUN/Creatinine Ratio 35.2 H, Glucose 146 H, Calcium 8.8, Total Bilirubin 2.00 H, AST 193 H, ALT 753 H, Alkaline Phosphatase 56, Total Protein 5.9 L, Albumin 3.2, Globulin 2.7, Albumin/Globulin Ratio 1.2 11/28/21 07:08: POC Glucose 319 H 11/28/21 11:30: POC Glucose 145 H Micro: Microbiology 11/25/21 16:20 Urine, Clean Catch Urine Culture - Final Culture exhibits no growth. 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 A&Ox3 HEENT: Normocephalic, atraumatic. PERRLA, EOMI. Mucous membrane moist Neck: Supple. No JVD. Heart: Irregularly irregular S1, S2. No rubs or murmurs. Lungs: Clear to auscultation anteriorly and posteriorly. Abdomen: Normal bowel sounds. Abdomen is soft, nontender Extremities: No lower extremity edema Assessment & Plan Assessment/Plan (1) SAUL (acute kidney injury): PLAN: -The patient did have SAUL with serum creatinine peaking so far at 2.10 mg/dL on 11/24/2021. -Baseline renal function is normal. Serum creatinine 0.77mg/dL today -Suspect SUAL was due to prerenal azotemia which was likely related to hypotension in the setting of A. fib with RVR and sepsis. -Renal function improved despite diuretic. -The patient appears to be euvolemic. On bumex 0.5mg po bid and aldactone 25mg daily - labs ordered for am including mag. (2) Hypokalemia: PLAN: -Hypokalemia was likely due to diuresis along with hypomagnesemia. -resolved (3) Hypomagnesemia: PLAN: -Hypomagnesemia was also likely due to diuresis. The patient is on magnesium chloride. - resolved (4) Essential hypertension: PLAN: -BP is controlled on current medications. She is on amlodipine and metoprolol. -BP should improve further with spironolactone that was added on 11/26/2021 for heart failure. -If renal function and BP remains stable over the next few days, we can consider adding GERRY inhibitor for heart failure with reduced ejection fraction. -discharge planning in progress to [facility], awaiting pre-CERT. (5) Ischemic cardiomyopathy:
--- NOTE | 2021-11-28 14:28 | CON.PCM.ID_ITS ---
Assessment & Plan Assessment/Plan (1) Gram-negative bacteremia: PLAN: SAUL and leukocytosis resolving. Bcx with kluyvera and GNR. On levaquin, plan on 7 day total course, stop date 12/04. Will increase dose to daily given improved GFR. Does have prolonged qtc, so will see if abx can be narrowed once the other GNR is identified. Will follow, thank you (2) SAUL (acute kidney injury): HPI Consult Data Date of Consult: 11/28/21 HPI Narrative HPI Narrative: KATEY CROSS, is a 81 F who presented 4/5 several days acute onset progressive weakness, dyspnea, chest discomfort. No fever. Found to have afib, elevated trop, leukocytosis. Had GI bleed here. Cxs sent. Started on levaquin, feeling ok now. Hospice planned. Pt able to provide limited history with h/o dementia. Full ROS performed and neg except as noted above. [facility] Medical History Acute [place], inferoposterior wall, subsequent episode of care Anemia Angina pectoris Atherosclerotic heart disease of [place] coronary artery without angina pectoris Atrial fibrillation Blindness of both eyes Body mass index (bmi) 26.0-26.9, adult Breast cancer Cancer Chronic systolic congestive heart failure COPD (chronic obstructive pulmonary disease) Debility Diabetes mellitus Essential hypertension Former smoker Hepatic insufficiency History of steroid therapy HLD (hyperlipidemia) HTN (hypertension) Hypothyroidism Implantable cardioverter-defibrillator (ICD) in situ Irregular heart beat Ischemic cardiomyopathy Monomorphic ventricular tachycardia Non-ST elevation (NSTEMI) myocardial infarction Nonalcoholic hepatosteatosis Nonrheumatic mitral valve regurgitation Nonrheumatic tricuspid (valve) insufficiency Old myocardial infarction Pacemaker Palpitations Paroxysmal a-fib Paroxysmal SVT (supraventricular tachycardia) Pre-syncope Presence of biventricular automatic cardioverter/defibrillator (AICD) Restless legs Right leg pain Shortness of breath Shortness of breath Syncope Ventricular tachyarrhythmia Ventricular tachycardia (paroxysmal) Wears hearing aid in both ears Home Medications duloxetine 60 mg PO DAILY 03/24/16 [History Last Taken 11/28/18] levothyroxine 75 mcg PO DAILY 03/24/16 [History Last Taken 11/28/18] vitamins A,C,P-nolq-cpyurb 1 ea PO QHS 03/24/16 [History Last Taken 11/27/18] cholecalciferol (vitamin D3) 50,000 unit PO MO 09/18/16 [History Last Taken 11/25/18] exemestane 25 mg tablet 25 mg PO DAILY 12/03/17 [History Last Taken 11/28/18] pravastatin 40 mg tablet 40 mg PO QHS 12/03/17 [History Last Taken 11/27/18] pregabalin 100 mg capsule 100 mg PO QHS 12/03/17 [History Last Taken 11/27/18] albuterol sulfate [ProAir HFA] 2 puff INHALATION TID PRN 10/11/18 [History Last Taken 11/26/18] donepezil [Aricept] 5 mg PO DAILY 10/11/18 [History Last Taken 11/28/18] gabapentin [Neurontin] 100 mg PO QHS 10/11/18 [History Last Taken 11/27/18] multivitamin with iron 1 tab PO BID 10/11/18 [History Last Taken 11/28/18] palbociclib [Ibrance] 125 mg PO DAILY 10/11/18 [History Last Taken 11/28/18] propylene glycol [Systane Balance] 1 drp RIGHT EYE BID 10/11/18 [History Last Taken 11/28/18] trazodone 50 mg PO QHS 10/11/18 [History Last Taken 11/27/18] [] 160 mg PO DAILY 11/19/18 [History Last Taken 11/28/18] melatonin 10 mg PO QHS 11/19/18 [History Last Taken 11/27/18] apixaban [Eliquis] 2.5 mg PO BID 11/28/18 [History Last Taken 11/28/18] aspirin 81 mg PO DAILY 11/28/18 [History Last Taken 11/28/18] amlodipine 5 mg PO DAILY #0 tab 11/25/21 [Rx Last Taken 11/28/18] amoxicillin-pot clavulanate [Augmentin] 1 tab PO BID #20 tab 11/25/21 [Rx Last Taken Unknown] budesonide 0.5 mg INHALATION BID.RT #0 ml 11/25/21 [Rx Last Taken Unknown] bumetanide 0.5 mg PO BIDCM #0 tab 11/25/21 [Rx Last Taken 11/28/18] ferrous sulfate [FeroSul] 325 mg PO QODAY@1200 #0 tab 11/25/21 [Rx Last Taken Unknown] insulin lispro [Humalog KwikPen Insulin] See Protocol SUBCUT ACHS #0 ml 11/25/21 [Rx Last Taken Unknown] isosorbide mononitrate 60 mg PO DAILY #0 tab 11/25/21 [Rx Last Taken 11/28/18] menthol-zinc oxide [Calmoseptine] 1 applic TOPICAL BID #0 g 11/25/21 [Rx Last Taken Unknown] metoprolol tartrate 50 mg PO BID #0 tab 11/25/21 [Rx Last Taken Unknown] pantoprazole [Protonix] 40 mg PO BID #60 tab 11/25/21 [Rx Last Taken Unknown] Allergy/AdvReac Type Severity Reaction Status Date / Time No Known Allergies Allergy Verified 11/22/21 21:08 Family History Son Asthma Father Cancer Mother Cancer Brother Cancer Surgical History Aortocoronary bypass status (~12/08/02) History of coronary artery stent placement History of mastectomy Postsurgical percutaneous transluminal coronary angioplasty (PTCA) status Presence of stent in coronary artery (~11/30/01) S/P implantation of automatic cardioverter/defibrillator (AICD) Social History (Updated 11/22/21 @ 22:[address] Sindi Parker MD) household members: none Smoking Status: Former smoker alcohol intake: never substance use type: does not use Physical Exam Const alert and no apparent distress General Appearance: cooperative Exam Limitations: no limitations HEENT normocephalic and head/scalp atraumatic Eyes PERRL and EOMs intact bilaterally Neck supple and No nodes Resp normal air movement and clear to auscultation bilaterally Cardio regular rate and regular rhythm GI soft to palpation, non-tender and non-distended Extremity no clubbing, cyanosis or edema Skin no rashes or lesions noted Neuro CN's II-XII intact bilaterally Lab / Micro Data Result Diagrams: 11/28/21 05:06 11/28/21 05:06 Labs: Laboratory Results - last 24 hr 11/27/21 17:04: POC Glucose 142 H 11/27/21 21:28: POC Glucose 176 H 11/28/21 05:06: WBC 13.6 H, RBC 2.51 L, Hgb 9.8 L, Hct 29.0 L, MCV 115.5 H, MCH 39.0 H, MCHC 33.8, RDW Std Deviation 69.9 H, RDW Coeff of Ella 16.5 H, Plt Count 202, MPV 12.2 H, Neut % (Auto) Not Reportable, Absolute Neuts (auto) 9.4 H, Absolute Lymphs (auto) 2.32, Total Counted 100, Neutrophils % (Manual) 68, Lymphocytes % (Manual) 17 L, Monocytes % (Manual) 6, Eosinophils % (Manual) 7 H, Basophils % (Manual) 1, Metamyelocytes % 1, Nucleated RBCs/100 WBC 4, Diff Path Review Reviewed, Platelet Estimate ADEQUATE, Polychromasia 1+, Tear Drop Cells RARE 11/28/21 05:06: Sodium 136, Potassium 3.9, Chloride 99, Carbon Dioxide 33.0 H, Anion Gap 4 L, BUN 27 H, Creatinine 0.77, Estim Creat Clear Calc 38.75, Est GFR (MDRD) Af Amer 93, Est GFR (MDRD) Non-Af 77, BUN/Creatinine Ratio 35.2 H, Glucose 146 H, Calcium 8.8, Total Bilirubin 2.00 H, AST 193 H, ALT 753 H, Alkaline Phosphatase 56, Total Protein 5.9 L, Albumin 3.2, Globulin 2.7, Albumin/Globulin Ratio 1.2 11/28/21 07:08: POC Glucose 319 H 11/28/21 11:30: POC Glucose 145 H Micro: Microbiology 11/25/21 16:20 Urine, Clean Catch Urine Culture - Final Culture exhibits no growth. 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
[2021-11-28] MEDS: Glucerna Shake 120 ML LIQUID PO (16:23)
[2021-11-28 16:26] LABS: Bedside Glucose 117 mg/dL (74-106)
[2021-11-28] MEDS: traZODone 50 MG Tablet PO (20:43)
[2021-11-28] MEDS: Pregabalin 50 MG Capsule 100 MG PO (20:43)
[2021-11-28] MEDS: MELATONIN 10 MG TABLET PO (20:43)
[2021-11-28 21:25] LABS: Bedside Glucose 196 mg/dL (74-106)
[2021-11-29] VITALS (8 sets, daily range): BP systolic 109–117; BP diastolic 46–70; PULSE 77–84; RESP 16–18; TEMP 36.6–36.9; O2SAT 87–98
[2021-11-29 06:20] LABS: Bedside Glucose 132 mg/dL (74-106)
[2021-11-29 06:20] LABS: AST(SGOT) 100 U/L (15-37); Alanine Aminotransfer ALT/SGPT 509 U/L (13-56); Alkaline Phosphatase 50 U/L (45-117); Anion Gap 3 (5-15); BUN 26 mg/dL (7-18); BUN/Creat Ratio 31.9 RATIO (10-20); Bilirubin, Direct 1.17 mg/dL (0.00-0.30); Calcium,Total 9.1 mg/dL (8.5-10.1); Chloride 101 mmol/L (98-107); Creatinine, Serum 0.82 mg/dL (0.55-1.02); EST Glomerular Filtration Rate 72 mL/min (>60); Est Glom Filt Rate - Afr Amer 87 mL/min (>60); Estimated Creatinine Clearance 47.25 ml/min; Globulin 2.7 g/dL (2.2-4.2); Glucose 153 mg/dL (74-106); Magnesium 1.9 mg/dL (1.6-2.6); Potassium 3.9 mmol/L (3.5-5.1); Protein, Total 5.7 g/dL (6.4-8.2); Sodium Level 138 mmol/L (136-145)
[2021-11-29] MEDS: Budesonide Respules 0.5 MG/2 ML AMPUL.NEB. INHALATION (07:00)
[2021-11-29] MEDS: Aspirin E.C. 81 MG Tablet PO (07:48)
--- NOTE | 2021-11-29 08:10 | CASEMGMT ---
TOYIN received a call from Madelin Christopher and she received insurance authorization. TOYIN will notify physician. Plan: d/c to [facility]
[2021-11-29] MEDS: Menthol/Lanolin/Calamine/Znox 113 GM Tube 1 APPLIC TOPICAL (09:14)
[2021-11-29] MEDS: Donepezil HCl 5 MG Tablet PO (09:15)
[2021-11-29] MEDS: Glycerin/Hypromellose/PEG400 15 ml Bottle 1 DRP RIGHT EYE (09:15)
[2021-11-29] MEDS: Metoprolol Tartrate 50 MG Tablet PO (09:15)
[2021-11-29] MEDS: Spironolactone 25 MG Tablet PO (09:15)
[2021-11-29] MEDS: levoFLOXacin 500 MG Tablet PO (09:16)
[2021-11-29] MEDS: Acetaminophen 325 MG Tablet 650 MG PO (09:20)
--- NOTE | 2021-11-29 09:26 | PCM.PN.REN ---
Subjective Subjective Following for SAUL Sitting in chair, no complaints. No overnight events. Hoping to be discharged today Objective Data Objective Data Vital Signs: Vital Signs Temp Pulse Resp BP Pulse Ox 98.4 F 83 18 117/46 L 91 11/29/21 09:12 11/29/21 09:15 11/29/21 09:12 11/29/21 09:12 11/29/21 09:20 Oxygen Flow Rate (L/min) 1 Oxygen Delivery Method Room Air Weight: 61.2 kg Body Mass Index (BMI) 22.1 Intake & Output: Intake and Output for Last 24 Hours 11/27/21 11/28/21 11/29/21 23:59 23:59 23:59 Intake Total 1042.08 / 1042.08 1220 / 1440 220 / 220 Output Total 2 / Balance 1042.08 / 1042.08 1218 / 1438 220 / 220 Lab / Micro Data Result Diagrams: 11/28/21 05:06 11/29/21 05:15 Labs: Laboratory Results - last 24 hr 11/28/21 05:06: Diff Path Review Reviewed 11/28/21 11:30: POC Glucose 145 H 11/28/21 16:20: POC Glucose 117 H 11/28/21 20:33: POC Glucose 196 H 11/29/21 05:15: Sodium 138, Potassium 3.9, Chloride 101, Carbon Dioxide 34.0 H, Anion Gap 3 L, BUN 26 H, Creatinine 0.82, Estim Creat Clear Calc 47.25, Est GFR (MDRD) Af Amer 87, Est GFR (MDRD) Non-Af 72, BUN/Creatinine Ratio 31.9 H, Glucose 153 H, Calcium 9.1, Magnesium 1.9, Total Bilirubin 1.90 H, Direct Bilirubin 1.17 H, AST 100 H, ALT 509 H, Alkaline Phosphatase 50, Total Protein 5.7 L, Albumin 3.0 L, Globulin 2.7 11/29/21 06:15: POC Glucose 132 H Micro: Microbiology 11/24/21 15:30 Blood Culture (Wb) - Arm Right Blood Culture - Final Kluyvera intermedia Raoultella planticola 11/25/21 16:20 Urine, Clean Catch Urine Culture - Final Culture exhibits no growth. 11/23/21 18:30 Stool Stool Occult Blood (CRUZ) - Final Occult Blood Positive Rhythm Strip Rhythm Strip: A-fib Rate: 144 Ectopy: PVC(s) Physical Exam Narrative General: NAD. A&Ox3 HEENT: Normocephalic, atraumatic. PERRLA, EOMI. Mucous membrane moist Neck: Supple. No JVD. Heart: Irregularly irregular S1, S2. No rubs or murmurs. Lungs: Clear to auscultation anteriorly and posteriorly. Abdomen: Normal bowel sounds. Abdomen is soft, nontender Extremities: No lower extremity edema Assessment & Plan Assessment/Plan (1) SAUL (acute kidney injury): PLAN: -The patient did have SAUL with serum creatinine peaking so far at 2.10 mg/dL on 11/24/2021. -Baseline renal function is normal. Serum creatinine 0.82mg/dL today -Suspect SAUL was due to prerenal azotemia which was likely related to hypotension in the setting of A. fib with RVR and sepsis. -Renal function improved despite diuretic. -The patient appears to be euvolemic. Continue on bumex 0.5mg po bid and aldactone 25mg daily (2) Hypokalemia: PLAN: -Hypokalemia was likely due to diuresis along with hypomagnesemia. -resolved (3) Hypomagnesemia: PLAN: -Hypomagnesemia was also likely due to diuresis. Resolved, mag 1.9 (4) Essential hypertension: PLAN: -BP is controlled on current medications. She is on amlodipine and metoprolol. -BP should improve further with spironolactone that was added on 11/26/2021 for heart failure. -Since renal function stable, SAUL resolved; can consider adding GERRY inhibitor for heart failure with reduced ejection fraction. -discharge planning in progress to [facility], awaiting pre-CERT. (5) Ischemic cardiomyopathy:
--- NOTE | 2021-11-29 09:35 | CASEMGMT ---
TOYIN notified patient that her insurance approved her to go to [facility]. Patient asked that SW notify her son. TOYIN will notify patient's son. Sadaf [facility]
--- NOTE | 2021-11-29 10:04 | CASEMGMT ---
TOYIN spoke with Madelin at [facility] and inquired if they would be able to package pick up patient. Madelin checked with their combine driver and he can package pick up patient at 1p. TOYIN notified RN, physician and medical secretary teacher. Plan: d/c to [facility] under skilled level of care. Sadaf Bright MSW JUANITA
--- NOTE | 2021-11-29 10:11 | PCM.PN.ID ---
Physical Exam Narrative Feeling ok, no fever, no abd pain Const alert and no apparent distress General Appearance: cooperative Resp normal air movement and clear to auscultation bilaterally Cardio regular rate and regular rhythm GI soft to palpation, non-tender and non-distended Skin no rashes or lesions noted ID ID: Route of nutrition/ use of supplements: [] Nutritional Intake: [] IV Site: [] Pedroza Catheter: [] Assessment & Plan Assessment/Plan (1) Gram-negative bacteremia: PLAN: SAUL and leukocytosis resolving. Bcx with kluyvera and raoultella. On levaquin, carolyn narrow to augmentin, plan on 7 day total course, stop date 12/04. Will follow as needed (2) SAUL (acute kidney injury):
--- NOTE | 2021-11-29 10:23 | CASEMGMT ---
TOYIN called Poornima Ferrari, patient's lining caser with [facility]. TOYIN left her a voice mail letting her know where patient is going at discharge. TOYIN will fax d/c orders to [phone] once completed. Sadaf Bright WAREHOUSE ANALYST JUANITA
--- NOTE | 2021-11-29 10:32 | DS.PCM_ITS ---
Providers Date of Admission: 11/22/21 Date of Discharge: 11/29/21 Primary Care Physician: Roscoe Bradley MD Consultations 11/22/21 23:21 Consult: Cardiology Routine Consulting Provider: Jimmy Rojas Reason for Consult: PAF with RVR on drip, elevated cardiac enzymes EMERGENT Consult: No MD Notified: Yes Date Notified: 11/23/21 Time Notified: 06:30 Method of Notification: cortext 11/23/21 19:08 Consult: Hospice / Palliative Care Routine Consulting Provider: [facility] Reason for Consult: Multiple medical problems. HF, Resp failure, NSTEMI,GI bleed, liver injury EMERGENT Consult: No MD Notified: Yes Date Notified: 11/23/21 Time Notified: 19:14 Method of Notification: Verbal 11/25/21 11:43 Consult: Nephrology Routine Consulting Provider: Pam Rey Reason for Consult: SAUL EMERGENT Consult: No Notified: Yes Date Notified: 11/25/21 Time Notified: 11:44 Method of Notification: Text 11/28/21 07:46 Consult: Infectious Disease Routine Consulting Provider: Rick Cortez Reason for Consult: Kluyvera intermedia EMERGENT Consult: No Notified: Yes Date Notified: 11/28/21 Time Notified: 07:46 Method of Notification: Text Reason For Visit: PAF W/RVR, ELEVATED TROP Diagnosis Discharge Diagnosis (1) Gram-negative bacteremia: Status: Acute Code(s): R78.81 - Bacteremia (2) SAUL (acute kidney injury): Status: Acute Code(s): N17.9 - Acute kidney failure, unspecified (3) GI bleed: Status: Acute Code(s): K92.2 - Gastrointestinal hemorrhage, unspecified (4) Sepsis: Status: Acute Code(s): A41.9 - Sepsis, unspecified organism (5) Non-ST elevation (NSTEMI) myocardial infarction: Status: Acute Code(s): I21.4 - Non-ST elevation (NSTEMI) myocardial infarction (6) Atrial fibrillation with RVR: Status: Acute Code(s): I48.91 - Unspecified atrial fibrillation Medications at Discharge Home Medications duloxetine 60 mg PO DAILY 03/24/16 levothyroxine 75 mcg PO DAILY 03/24/16 vitamins A,C,F-haoo-bhtqfh 1 ea PO QHS 03/24/16 cholecalciferol (vitamin D3) 50,000 unit PO MO 09/18/16 exemestane 25 mg tablet 25 mg PO DAILY 12/03/17 pravastatin 40 mg tablet 40 mg PO QHS 12/03/17 pregabalin 100 mg capsule 100 mg PO QHS 12/03/17 albuterol sulfate [ProAir HFA] 2 puff INHALATION TID PRN 10/11/18 donepezil [Aricept] 5 mg PO DAILY 10/11/18 gabapentin [Neurontin] 100 mg PO QHS 10/11/18 multivitamin with iron 1 tab PO BID 10/11/18 palbociclib [Ibrance] 125 mg PO DAILY 10/11/18 propylene glycol [Systane Balance] 1 drp RIGHT EYE BID 10/11/18 trazodone 50 mg PO QHS 10/11/18 [] 160 mg PO DAILY 11/19/18 melatonin 10 mg PO QHS 11/19/18 apixaban [Eliquis] 2.5 mg PO BID 11/28/18 aspirin 81 mg PO DAILY 11/28/18 amlodipine 5 mg PO DAILY #0 tab 11/25/21 budesonide 0.5 mg INHALATION BID.RT #0 ml 11/25/21 bumetanide 0.5 mg PO BIDCM #0 tab 11/25/21 ferrous sulfate [FeroSul] 325 mg PO QODAY@1200 #0 tab 11/25/21 insulin lispro [Humalog KwikPen Insulin] See Protocol SUBCUT ACHS #0 ml 11/25/21 isosorbide mononitrate 60 mg PO DAILY #0 tab 11/25/21 menthol-zinc oxide [Calmoseptine] 1 applic TOPICAL BID #0 g 11/25/21 metoprolol tartrate 50 mg PO BID #0 tab 11/25/21 pantoprazole [Protonix] 40 mg PO BID #60 tab 11/25/21 amoxicillin-pot clavulanate 875 mg PO BIDCM #0 tab 11/29/21 bumetanide 0.5 mg PO BID #0 tab 11/29/21 nut.tx.gluc intol,lf,soy-fiber [Glucerna 1.2 Tru] 120 ml PO 4X/DAY #0 ml 11/29/21 spironolactone 25 mg PO DAILY #0 tab 11/29/21 Hospital Course Procedures 2-D Echocardiogram and - (Right upper quadrant ultrasound, renal ultrasound) Summary of Care Provided Minutes Spent on Discharge: 39 Hospital Course: Mrs. Lomax is an 81-year-old white female who presented to the emergency department at [facility] on 11/22/2021 with a chief complaint of debility, weakness, and palpitations. The patient has a known history of macular degeneration with chronic blindness as well as dementia. Upon admission she had been reporting some shortness of breath and chest discomfort that started the day prior to presentation and progressively worse which is actually what prompted her ED evaluation. She complained that her heart has been racing over the past several days prior to admission and that she had been diffusely weak. She also complained of some intermittent nausea and vomiting but that that started only after the sensation of palpitations and heart racing. She had no known recent ill contacts and denied fever or chills. In the emergency department she was given aspirin. Upon ED evaluation her vital signs showed that she was afebrile with a heart rate between 123-145, her blood pressure was 106/56, her respiratory rate is 14 and she was satting 95% on room air. Her CBC demonstrated a elevated white count of 15,000 with a mild chronic anemia showing a hemoglobin of 10.7 and a normal platelet count. A left shift was present. Her CHEM panel showed mild hypokalemia with a potassium of 3.2 and a troponin of 312. Chest x-ray showed cardiomegaly with a right-sided pacemaker and defibrillator in place but no acute abnormalities. Her EKG shows atrial fibrillation with RVR and ST depressions in V3 through V6 that were suspected to be rate dependent. She was given a Cardizem bolus in the emergency department and was initiated on a drip. For her atrial fibrillation an echocardiogram was performed and showed an EF of 25% with a moderately dilated RV and global RV dy sfunction, mild left atrial enlargement, not really severe eccentric mitral valve insufficiency, moderately severe tricuspid valve insufficiency, diffuse aortic valve thickening, and right ventricular systolic pressure at 52 mmHg. Opponent elevation she was evaluated by cardiology. It was overall unclear whether or not she had a type I versus a type II event that was brought on by her atrial dysrhythmia and RVR. Her pacemaker was interrogated on 11/23/2021 without any marked abnormalities noted. She developed shortness of breath with minimal exertion and with lying flat and diuresis was initiated. Blood cultures were drawn on 11/24/2021 and eventually resulted positive for Kluyvera intermedia and Raoultella planticola. Both of these were fairly susceptible organisms and she was evaluated by infectious disease during her hospitalization and placed on Augmentin to complete her antibiotic course which is to be completed on 12/04/2021. She was found to have positive guaiac stools on 11/23/2021 and it is suspected that she had a transient GI bleed that resulted in translocation of gut bacteria resulting in her bacteremia is no other source has been found. A urine culture was also performed and found to be negative. During her hospitalization her serum creatinine did rise to 2.10 on 11/24/2021 and therefore nephrology was consulted. She had normal serum creatinine on admission. It was suspected by nephrology that her SAUL was due to prerenal azotemia related to hypotension in the setting of A. fib with RVR and her sepsis. Her renal function did improve during her hospital course despite being on a diuretic for her heart failure. She was maintained on Bumex at 0.5 mg and eventually transition to oral Bumex on 11/27/2021. She had electrolyte disturbances with hypokalemia and hypomagnesemia both of which were replaced. Given her heart failure Aldactone was added during her hospitalization and she tolerated this quite well. She developed marked transaminase elevation during her hospitalization with transaminases in the thousands. They slowly trended down with time. Exact etiology is uncertain. Hurst statin and TriCor were held during her hospitalization and I would continue to hold these. Given her part positive guaiac stools her oral anticoagulation was held and start dates were placed on her OCT at discharge. Her hemoglobin stabilized and therefore she did not require any intervention or further testing. Extensive conversations were had with the attending physician and her son with regards to overall prognosis and hospice was initially brought in as the son was thinking he would transition to a hospice given her complicated medical issues as well as her marked dementia, however as she clinically improved he elected to not pursue hospice at this time, have her admitted to a nursing facility and discuss that with her in the future. I would recommend a palliative care consult at the very least after transfer. [facility] and was discharged in stable condition. 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 She indicated she knew she was in the hospital but was unclear on which hospital she was currently in. Complaining of some right-sided back pain which she states is a chronic issue General Appearance: cooperative, comfortable, well kempt and well developed Exam Limitations: other limitations HEENT normocephalic, head/scalp atraumatic and moist oral mucous membranes HEENT Narrative: Hard of hearing, Mallampati is 2, no thrush Eyes PERRL and EOMs intact bilaterally Eyes Narrative: Conjunctiva are mildly pale, no scleral icterus, pupils react but are a bit sluggish which is her baseline as she is legally blind Neck no lymphadenopathy, supple and no JVD Neck Narrative: Trachea is midline, no thyroid enlargement Resp normal respiratory effort, no retractions, no use of accessory muscles and clear to auscultation bilaterally Auscultation: Negative for crackles, rales, rhonchi or wheezes Cardio regular rate, regular rhythm, S1 normal heart sound, S2 normal heart sound, no gallops and no clicks Cardio Narrative: Irregular rhythm, 3 out of 6 systolic murmur loudest at the right upper sternal border GI normal to inspection, nondistended, normoactive bowel sounds, soft to palpation, non-tender and non-distended; Negative for hepatosplenomegaly Extremity no clubbing, cyanosis or edema Skin no rashes or lesions noted, no wounds, skin turgor normal, no jaundice, no petechiae and no mottling Skin Narrative: Skin is somewhat delicate Neuro CN's II-XII intact bilaterally, moves all extremities and no focal motor deficits Neuro Narrative: Generalized weakness noted Sensorium / Orientation: awake, alert, oriented to person and oriented to time Speech: speech normal Psych affect normal Psych Narrative: Very pleasant and currently is appropriately interactive Weight / BMI Weight Weight: 61.2 kg Body Mass Index (BMI) 22.1 ABG / Lab / Microbiology Data Result Diagrams: 11/28/21 05:06 11/29/21 05:15 Laboratory: Laboratory Results - last 24 hr 11/28/21 05:06: Diff Path Review Reviewed 11/28/21 11:30: POC Glucose 145 H 11/28/21 16:20: POC Glucose 117 H 11/28/21 20:33: POC Glucose 196 H 11/29/21 05:15: Sodium 138, Potassium 3.9, Chloride 101, Carbon Dioxide 34.0 H, Anion Gap 3 L, BUN 26 H, Creatinine 0.82, Estim Creat Clear Calc 47.25, Est GFR (MDRD) Af Amer 87, Est GFR (MDRD) Non-Af 72, BUN/Creatinine Ratio 31.9 H, Glucose 153 H, Calcium 9.1, Magnesium 1.9, Total Bilirubin 1.90 H, Direct Bilirubin 1.17 H, AST 100 H, ALT 509 H, Alkaline Phosphatase 50, Total Protein 5.7 L, Albumin 3.0 L, Globulin 2.7 11/29/21 06:15: POC Glucose 132 H Microbiology: Microbiology 11/29/21 09:05 Nasal Secretion SARS-CoV-2 Antigen (Rapid) - Final 11/24/21 15:30 Blood Culture (Wb) - Arm Right Blood Culture - Final Kluyvera intermedia Raoultella planticola 11/25/21 16:20 Urine, Clean Catch Urine Culture - Final Culture exhibits no growth. 11/23/21 18:30 Stool Stool Occult Blood (CRUZ) - Final Occult Blood Positive D/C Instructions Discharge Diet: Low fat / Low cholesterol, 8 Cup Fluid Restriction and 4000 mg Sodium Diet Discharge Activity: Return to Normal Activity Meaningful Use Info Meaningful Use Diagnoses (Choose all that apply): None applicable Discharge Plan Admission Admit Date/Time: 11/22/21 22:38 Primary Reason for Your Visit: None NSTEMI, acute on chronic HF, acute liver injury, SAUL, GNR bacteremia Attending Provider: Hallie Caballero Primary Care Provider: Roscoe Bradley Consulting Providers: Jimmy Rojas ; Suzette Ballard ; Deo Owen ; Shelly Painting ; Eliana Davison ; Mable Rojas ; Natalya Rendon CARD LACER JACQUARD ; Pam Rey ; Rick Cortez Discharge Orders/Prescriptions Prescriptions: New ferrous sulfate [FeroSul] 325 mg (65 mg iron) Tablet 325 mg PO QODAY@1200 Qty: 0 RF: 0 metoprolol tartrate 50 mg Tablet 50 mg PO BID Qty: 0 RF: 0 budesonide 0.5 mg/2 mL Suspension For Nebulization 0.5 mg inhalation BID.RT Qty: 0 RF: 0 insulin lispro [Humalog KwikPen Insulin] 100 unit/mL Insulin Pen See Protocol unit subcut ACHS Qty: 0 RF: 0 menthol-zinc oxide [Calmoseptine] 0.44-20.6 % Ointment 1 applic topical BID Qty: 0 RF: 0 pantoprazole [Protonix] 40 mg tablet,delayed release (DR/EC) 40 mg PO BID Qty: 60 RF: 0 spironolactone 25 mg Tablet 25 mg PO DAILY Qty: 0 RF: 0 bumetanide 0.5 mg Tablet 0.5 mg PO BID Qty: 0 RF: 0 amoxicillin-pot clavulanate 875-125 mg Tablet 875 mg PO BIDCM Qty: 0 RF: 0 Glucerna 1.2 Tru 0.06-1.2 gram-kcal/mL Liquid 120 ml PO 4X/DAY Qty: 0 RF: 0 Continued pregabalin [Lyrica] 100 mg capsule 100 mg PO QHS RF: 0 pravastatin 40 mg tablet 40 mg PO QHS RF: 0 duloxetine 60 MG capsule 60 mg PO DAILY RF: 0 vitamins A,C,A-rtcm-txaafi 1 EACH capsule 1 ea PO QHS RF: 0 cholecalciferol (vitamin D3) 50,000 UNIT capsule 50,000 unit PO MO RF: 0 donepezil [Aricept] 5 MG tablet 5 mg PO DAILY RF: 0 trazodone 50 MG tablet 50 mg PO QHS RF: 0 gabapentin [Neurontin] 100 MG capsule 100 mg PO QHS RF: 0 albuterol sulfate [ProAir HFA] 1 PUFF inhaler 2 puff inhalation TID PRN (Reason: Sob &/Or Wheezing) RF: 0 multivitamin with iron 1 EACH tablet 1 tab PO BID RF: 0 propylene glycol [Systane Balance] 10 ML drops 1 drp Right Eye BID RF: 0 melatonin 10 MG tablet 10 mg PO QHS RF: 0 aspirin 81 MG tablet 81 mg PO DAILY RF: 0 amlodipine 5 MG tablet 5 mg PO DAILY Qty: 0 RF: 0 Changed isosorbide mononitrate 120 MG tablet 60 mg PO DAILY Qty: 0 RF: 0 bumetanide 0.5 mg tablet 0.5 mg PO BIDCM Qty: 0 RF: 0 Held exemestane 25 mg tablet 25 mg PO DAILY RF: 0 Hold Instructions: Resume on 12/08/21. If patient son continues hospice status, discontinue levothyroxine 75 MCG tablet 75 mcg PO DAILY RF: 0 Hold Instructions: Resume on 12/08/21. Repeat thyroid function test after 2 weeks palbociclib [Ibrance] 125 MG capsule 125 mg PO DAILY RF: 0 Hold Instructions: Resume on 12/08/21. Hold for 2 week . If patient son continues hospice status, discontinue apixaban [Eliquis] 2.5 MG tablet 2.5 mg PO BID RF: 0 Hold Instructions: Hold for 1 week as patient had GI bleed on 11/23. If patient son continues hospice status, discontinued Discontinued omeprazole 20 MG capsule 20 mg PO DAILY RF: 0 ferrous sulfate 325 MG tablet 325 mg PO BIDCM RF: 0 loratadine [Claritin Liqui-Gel] 10 MG capsule 10 mg PO QHS RF: 0 metoprolol tartrate 37.5 MG tablet 37.5 mg PO BID RF: 0 potassium chloride [Klor-Con M20] 20 MEQ tablet,ER particles/crystals 60 meq PO DAILY RF: 0 hydrochlorothiazide 25 MG tablet 25 mg PO DAILY RF: 0 pentoxifylline 400 MG tablet 400 mg PO BID RF: 0 No Action fenofibrate 160 mg tablet 160 mg tablet 160 mg PO DAILY RF: 0 Referrals / Follow Up: Pam Rey MD [STAFF PHYSICIAN] - Within 2 Weeks (If patient does not elect hospice care) Jimmy Rojas MD [STAFF PHYSICIAN] - Within 1 Month (If patient does not elect hospice care) Roscoe Bradley MD [Primary Care Provider] - Within 2 Weeks Disposition Disposition (needs filled in before D/C Order can be placed): NonSkilled NH/Intermed Care Charges/Coding Visit Charges Inpatient E&M: 05514 SNF Disch >30 Min
[2021-11-29] MEDS: 0.9% Saline Lock 10 ML Syringe IV (10:35)
[2021-11-29] MEDS: Amox/Clavulanate 875 MG Tablet PO (10:35)
--- NOTE | 2021-11-29 10:54 | NURSING ---
Pt informed that pharmacy wont fill rx for tramadol d/t there being codeine in it. Advised pt not to fill prescription d/t allergy and that this RN is waiting for a reply from Dr Mulligan. Pt getting anxious as she needs to leave to make her dialysis chair time and voiced understanding that she should not take tramadol d/t the allergy to codeine. Pt also stated I can just take tylenol.
--- NOTE | 2021-11-29 10:57 | PCM.TXEXTCAR ---
Diet 11/22/21 23:22 Diet: Consistent Carb - Calorie Controlled How many daily calories?: 1600 calorie Routine Orders/Code Status Suppository Type: Dulcolax 10mg Suppository Frequency: Daily PRN Routine Lab Work: CBC, BMP and - (CBC with differential, BMP, liver profile every week if patient does not elect hospice care) Code Status: DNRCC (hospice care) Therapies Weight Bearing: Full weight bearing Problem/Diagnosis (1) Gram-negative bacteremia: Status: Acute (2) SAUL (acute kidney injury): Status: Acute (3) GI bleed: Status: Acute (4) Sepsis: Status: Acute (5) Non-ST elevation (NSTEMI) myocardial infarction: Status: Acute (6) Atrial fibrillation with RVR: Status: Acute Allergies/Procedures Done in Hospital Allergies No Known Allergies Allergy (Verified 11/22/21 21:08) Procedures: 2-D Echocardiogram Type of Care/Length of Stay Estimated LOS: Convalescent Care Less Than 30 days Type of Care Needed: Intermediate Rehab Potential: Poor Prognosis: Poor Additional Orders/Day of Discharge Additional Orders: please consult palliative care/Hospice Day of Discharge: 11/29/21 Dietary and Speech Recommendations Dietitian Recommendations/Changes: Continue Consistent Carbohydrate/1600 calorie controlled diet and Glucerna Shake to 4oz 4x/day w/ medpass. Discharge Plan Admission Admit Date/Time: 11/22/21 22:38 Primary Reason for Your Visit: None NSTEMI, acute on chronic HF, acute liver injury, SAUL, GNR bacteremia Attending Provider: Hallie Caballero Primary Care Provider: Roscoe Bradley Consulting Providers: Jimmy Rojas ; Suzette Ballard ; Deo Owen ; Shelly Wiggins ; Eliana Davison ; Mable Rojas ; Natalya Rendon OCCUPATIONAL THERAPY DIRECTOR ; Pam Rey ; Rick Cortez Discharge Orders/Prescriptions Prescriptions: New ferrous sulfate [FeroSul] 325 mg (65 mg iron) Tablet 325 mg PO QODAY@1200 Qty: 0 RF: 0 metoprolol tartrate 50 mg Tablet 50 mg PO BID Qty: 0 RF: 0 budesonide 0.5 mg/2 mL Suspension For Nebulization 0.5 mg inhalation BID.RT Qty: 0 RF: 0 insulin lispro [Humalog KwikPen Insulin] 100 unit/mL Insulin Pen See Protocol unit subcut ACHS Qty: 0 RF: 0 menthol-zinc oxide [Calmoseptine] 0.44-20.6 % Ointment 1 applic topical BID Qty: 0 RF: 0 pantoprazole [Protonix] 40 mg tablet,delayed release (DR/EC) 40 mg PO BID Qty: 60 RF: 0 spironolactone 25 mg Tablet 25 mg PO DAILY Qty: 0 RF: 0 bumetanide 0.5 mg Tablet 0.5 mg PO BID Qty: 0 RF: 0 amoxicillin-pot clavulanate 875-125 mg Tablet 875 mg PO BIDCM Qty: 0 RF: 0 Glucerna 1.2 Tru 0.06-1.2 gram-kcal/mL Liquid 120 ml PO 4X/DAY Qty: 0 RF: 0 Continued pregabalin [Lyrica] 100 mg capsule 100 mg PO QHS RF: 0 pravastatin 40 mg tablet 40 mg PO QHS RF: 0 duloxetine 60 MG capsule 60 mg PO DAILY RF: 0 vitamins A,C,K-vrnc-nheqhl 1 EACH capsule 1 ea PO QHS RF: 0 cholecalciferol (vitamin D3) 50,000 UNIT capsule 50,000 unit PO MO RF: 0 donepezil [Aricept] 5 MG tablet 5 mg PO DAILY RF: 0 trazodone 50 MG tablet 50 mg PO QHS RF: 0 gabapentin [Neurontin] 100 MG capsule 100 mg PO QHS RF: 0 albuterol sulfate [ProAir HFA] 1 PUFF inhaler 2 puff inhalation TID PRN (Reason: Sob &/Or Wheezing) RF: 0 multivitamin with iron 1 EACH tablet 1 tab PO BID RF: 0 propylene glycol [Systane Balance] 10 ML drops 1 drp Right Eye BID RF: 0 melatonin 10 MG tablet 10 mg PO QHS RF: 0 aspirin 81 MG tablet 81 mg PO DAILY RF: 0 amlodipine 5 MG tablet 5 mg PO DAILY Qty: 0 RF: 0 Changed isosorbide mononitrate 120 MG tablet 60 mg PO DAILY Qty: 0 RF: 0 bumetanide 0.5 mg tablet 0.5 mg PO BIDCM Qty: 0 RF: 0 Held exemestane 25 mg tablet 25 mg PO DAILY RF: 0 Hold Instructions: Resume on 12/08/21. If patient son continues hospice status, discontinue levothyroxine 75 MCG tablet 75 mcg PO DAILY RF: 0 Hold Instructions: Resume on 12/08/21. Repeat thyroid function test after 2 weeks palbociclib [Ibrance] 125 MG capsule 125 mg PO DAILY RF: 0 Hold Instructions: Resume on 12/08/21. Hold for 2 week . If patient son continues hospice status, discontinue apixaban [Eliquis] 2.5 MG tablet 2.5 mg PO BID RF: 0 Hold Instructions: Hold for 1 week as patient had GI bleed on 11/23. If patient son continues hospice status, discontinued Discontinued omeprazole 20 MG capsule 20 mg PO DAILY RF: 0 ferrous sulfate 325 MG tablet 325 mg PO BIDCM RF: 0 loratadine [Claritin Liqui-Gel] 10 MG capsule 10 mg PO QHS RF: 0 metoprolol tartrate 37.5 MG tablet 37.5 mg PO BID RF: 0 potassium chloride [Klor-Con M20] 20 MEQ tablet,ER particles/crystals 60 meq PO DAILY RF: 0 hydrochlorothiazide 25 MG tablet 25 mg PO DAILY RF: 0 pentoxifylline 400 MG tablet 400 mg PO BID RF: 0 No Action fenofibrate 160 mg tablet 160 mg tablet 160 mg PO DAILY RF: 0 Referrals / Follow Up: Pam Rey MD [STAFF PHYSICIAN] - Within 2 Weeks (If patient does not elect hospice care) Jimmy Rojas MD [STAFF PHYSICIAN] - Within 1 Month (If patient does not elect hospice care) Roscoe Bradley MD [Primary Care Provider] - Within 2 Weeks Disposition Disposition (needs filled in before D/C Order can be placed): NonSkilled NH/Intermed Care
[2021-11-29] MEDS: Insulin Lispro 100 UNIT/ML INSULN.PEN SC (11:14)
[2021-11-29 11:20] LABS: Bedside Glucose 150 mg/dL (74-106)
--- NOTE | 2021-11-29 11:25 | NURSING ---
Call placed to son David to provide update and ask if he had taken the pt's ring home with him. David states that he does have pt's ring at home.
--- NOTE | 2021-11-29 12:47 | CASEMGMT ---
TOYIN faxed orders and negative COVID to [facility] as well as [facility]. Convalescent was completed in [facility]. Plan: d/c to [facility] under skilled level of care on a convalescent stay. [facility] came to [facility] and picked up patient per TOYIN request. Sadaf Bright ARCHITECTURAL PROJECT MANAGER JUANITA
--- NOTE | 2021-11-29 12:53 | NURSING ---
Addendum entered by Sherie See 11/29/21 13:04: Report given to [facility] nurse Yeimi. Original Note: x2 attempts made of trying to call report to [facility], unable to be connected to a nurse and unable to leave voicemail.
== END 2021-11-29 13:18 | DRG 280 ==
LOC: ED 22:31 → PCU 11-23 07:08
PROVIDERS: Internal Medicine; Nurse Practitioner Adult Health; Admitting Provider Family Medicine; Emergency Provider Emergency Medicine; PCP Family Medicine; Visit Provider Internal Medicine
DX: I48.0 Paroxysmal atrial fibrillation (principal); I21.4 Non-ST elevation (NSTEMI) myocardial infarction; A41.59 Other Gram-negative sepsis; J96.01 Acute respiratory failure with hypoxia; N17.0 Acute kidney failure with tubular necrosis; K72.00 Acute and subacute hepatic failure without coma; I50.23 Acute on chronic systolic (congestive) heart failure; K92.2 Gastrointestinal hemorrhage, unspecified; I27.21 Secondary pulmonary arterial hypertension; I95.9 Hypotension, unspecified; E11.40 Type 2 diabetes mellitus with diabetic neuropathy, unspecified; J44.9 Chronic obstructive pulmonary disease, unspecified; F03.90 Unspecified dementia, unspecified severity, without behavioral disturbance, psychotic disturbance, mood disturbance, and anxiety; I11.0 Hypertensive heart disease with heart failure; D64.9 Anemia, unspecified; G25.81 Restless legs syndrome; E03.9 Hypothyroidism, unspecified; I25.2 Old myocardial infarction; I25.5 Ischemic cardiomyopathy; I34.0 Nonrheumatic mitral (valve) insufficiency; I25.10 Atherosclerotic heart disease of native coronary artery without angina pectoris; E78.5 Hyperlipidemia, unspecified; H35.30 Unspecified macular degeneration; E87.6 Hypokalemia; K21.9 Gastro-esophageal reflux disease without esophagitis; I44.7 Left bundle-branch block, unspecified; E05.90 Thyrotoxicosis, unspecified without thyrotoxic crisis or storm; E83.42 Hypomagnesemia; K76.0 Fatty (change of) liver, not elsewhere classified; H54.8 Legal blindness, as defined in USA; Z85.3 Personal history of malignant neoplasm of breast; Z95.810 Presence of automatic (implantable) cardiac defibrillator; Z79.899 Other long term (current) drug therapy; Z79.01 Long term (current) use of anticoagulants; Z79.82 Long term (current) use of aspirin; I49.3 Ventricular premature depolarization; T50.2X5A Adverse effect of carbonic-anhydrase inhibitors, benzothiadiazides and other diuretics, initial encounter; Z66 Do not resuscitate
CPT/HCPCS: 36415; 71045; 76705; 76770; 80048; 80053; 80061; 80074; 80076; 81001; 82274; 82550; 82570; 82962; 82977; 83036; 83615; 83735; 83935; 84100; 84300; 84439; 84443; 84484; 85025; 87040; 87077; 87086; 87186; 87811; 93005; 93306; 94640; 97110; 97162; 97166; 97530; 97535; 97802; 99251; 99285; J7040; J7050; J7120; A4216; G0463; J2405

== ENCOUNTER → 2021-12-05 | Outpatient (REF) | payer SELFPAY ==
[2021-12-05 08:10] LABS: Absolute Lymphocyte Count 1.41 X10^3/uL (0.83-4.51); Absolute Neutrophil Count 4.4 X10^3/uL (2.0-7.7); Basophil# 0.06 X10^3/uL; Basophil% 0.8 % (0-1); Eosinophil# 0.38 X10^3/uL; Eosinophils% 5.4 % (0-5); Hematocrit 32.4 % (37-47); Hemoglobin 10.9 g/dL (12.0-15.0); Lymphocyte # 1.41 X10^3/ul (0.83-4.51); Lymphocyte % 19.9 % (19-41); Mean Corp Hgb Conc 33.6 g/dL (32-36); Mean Corpuscular Hgb 38.7 pg (27.0-32.0); Mean Corpuscular Volume 114.9 fL (81-99); Mean Platelet Vol. 12.3 fl (6.2-12.0); Monocyte# 0.82 X10^3/uL; Monocyte% 11.6 % (0-10); NRBC Flagged by Analyzer 0.3 % (0-5); Neutrophil # 4.37 X10^3/uL (2.7-7.7); Neutrophil % 61.7 % (47-70); Platelet Count 104 K/mm3 (150-450); RBC Distribution Width CV 14.8 % (11.6-14.6); RBC Distribution Width SD 63.2 fl (35.1-43.9); Red Blood Count 2.82 M/mm3 (4.2-5.4); White Blood Count 7.1 K/mm3 (4.4-11.0)
[2021-12-05 08:21] LABS: Vitamin B12 1813 pg/mL (211-911); Vitamin D,25 Hydroxy 52.4 ng/mL
[2021-12-05 08:29] LABS: AST(SGOT) 36 U/L (15-37); Alanine Aminotransfer ALT/SGPT 116 U/L (13-56); Albumin, Serum 2.9 g/dL (3.2-5.0); Alkaline Phosphatase 46 U/L (45-117); Anion Gap 6 (5-15); BUN 15 mg/dL (7-18); BUN/Creat Ratio 24.2 RATIO (10-20); Calcium,Total 8.4 mg/dL (8.5-10.1); Chloride 101 mmol/L (98-107); Creatinine, Serum 0.62 mg/dL (0.55-1.02); EST Glomerular Filtration Rate 98 mL/min (>60); Est Glom Filt Rate - Afr Amer 119 mL/min (>60); Globulin 2.9 g/dL (2.2-4.2); Glucose 131 mg/dL (74-106); Magnesium 1.5 mg/dL (1.6-2.6); Potassium 3.6 mmol/L (3.5-5.1); Protein, Total 5.8 g/dL (6.4-8.2); Sodium Level 138 mmol/L (136-145); Thyroid Stim Hormone (TSH) 8.76 uIU/mL (0.358-3.74)
[2021-12-05 08:42] LABS: Hemoglobin A1c 5.1 % (3.8-5.6)
== END | disposition home or self-care (01) ==
LOC: OLS.SW1020 05:00
PROVIDERS: Visit Provider Internal Medicine
DX: E11.9 Type 2 diabetes mellitus without complications (principal); E55.9 Vitamin D deficiency, unspecified; N60.81 Other benign mammary dysplasias of right breast
CPT/HCPCS: 36415; 80053; 82306; 82607; 83036; 83735; 84443; 85025

== ENCOUNTER → 2021-12-12 | Outpatient (REF) | payer SELFPAY ==
[2021-12-12 09:14] LABS: Absolute Lymphocyte Count 1.08 X10^3/uL (0.83-4.51); Absolute Neutrophil Count 7.9 X10^3/uL (2.0-7.7); Basophil# 0.05 X10^3/uL; Basophil% 0.5 % (0-1); Eosinophil# 0.18 X10^3/uL; Eosinophils% 1.8 % (0-5); Hematocrit 30.9 % (37-47); Hemoglobin 10.1 g/dL (12.0-15.0); Lymphocyte # 1.08 X10^3/ul (0.83-4.51); Lymphocyte % 10.5 % (19-41); Mean Corp Hgb Conc 32.7 g/dL (32-36); Mean Corpuscular Hgb 37.8 pg (27.0-32.0); Mean Corpuscular Volume 115.7 fL (81-99); Mean Platelet Vol. 13.6 fl (6.2-12.0); Monocyte# 0.97 X10^3/uL; Monocyte% 9.5 % (0-10); NRBC Flagged by Analyzer 0.2 % (0-5); Platelet Count 143 K/mm3 (150-450); RBC Distribution Width CV 14.8 % (11.6-14.6); RBC Distribution Width SD 63.2 fl (35.1-43.9); Red Blood Count 2.67 M/mm3 (4.2-5.4); White Blood Count 10.3 K/mm3 (4.4-11.0)
[2021-12-12 09:23] LABS: Anion Gap 5 (5-15); BUN 25 mg/dL (7-18); BUN/Creat Ratio 41.9 RATIO (10-20); Chloride 99 mmol/L (98-107); EST Glomerular Filtration Rate 103 mL/min (>60); Est Glom Filt Rate - Afr Amer 124 mL/min (>60); Glucose 93 mg/dL (74-106); Magnesium 1.9 mg/dL (1.6-2.6); Potassium 3.7 mmol/L (3.5-5.1); Sodium Level 138 mmol/L (136-145)
== END | disposition home or self-care (01) ==
LOC: OLS.SW1020 04:00
PROVIDERS: PCP Family Medicine; Referring Provider Internal Medicine; Visit Provider Internal Medicine
DX: R68.89 Other general symptoms and signs (principal); I10 Essential (primary) hypertension
CPT/HCPCS: 36415; 80048; 83735; 85025

== ENCOUNTER 2021-12-16 21:45 | Emergency (ER) | payer MEDICARE, MEDICAID, SELFPAY ==
[2021-12-16 21:46] VITALS: BP 113/64; PULSE 69; RESP 18; TEMP 36.3; O2SAT 99; BMI 23.8
--- NOTE | 2021-12-16 22:16 | RAD_ITS ---
STUDY: X-RAY - LUMBAR SPINE REASON FOR EXAM: Female, 81 years old. Back pain. TECHNIQUE: 3 view(s) of the lumbar spine were obtained. COMPARISON: None FINDINGS: Normal lumbar lordosis. There is no substantial scoliosis. There is a normal alignment of the vertebrae. There is generalized demineralization of the vertebral bodies. Minimal endplate spondylosis and disc space narrowing. Most marked at the L4-5 and L5-S1 levels. There is no evidence of acute fracture or loss of vertebral axial height. There is atherosclerotic calcification of the abdominal aorta without a demonstrated aneurysm. There are stents within the common iliac arteries. RAD/Lumbar Spine 2 or 3 Views IMPRESSION: Degenerative changes of the lower lumbar spine without acute fracture or subluxation. Electronically Signed: Neal Falcon DO at 23:02 EDT ,
--- NOTE | 2021-12-16 22:18 | ED.VIS.LOWEX ---
HPI History of Present Illness Chief Complaint: Other, Pain/Inj Narrative Narrative: 81-year-old female with chronic right hip and lower back pain presenting for similar symptoms. She states he sees Dr. Isbell and had injections done in the lower back about 2 weeks ago. She states initially this helped however she has had increasing pain in the right hip. She states they have been giving her Tylenol and gabapentin at her facility at [facility]. They have not tried any other pain medications. She denies any new injury. They have not contacted Dr. Isbell in regards to continued right hip pain and lower back pain. Patient denies any new trauma or injury. She states that she can walk although it is painful. Patient denies loss of bladder or bowel control. She denies saddle anesthesia. [facility] Medical History Acute DC, inferoposterior wall, subsequent episode of care Anemia Angina pectoris Atherosclerotic heart disease of [place] coronary artery without angina pectoris Atrial fibrillation Blindness of both eyes Body mass index (bmi) 26.0-26.9, adult Breast cancer Cancer COPD (chronic obstructive pulmonary disease) Debility Diabetes mellitus Elevated troponin Essential hypertension Former smoker Hepatic insufficiency History of diabetes mellitus History of DC (myocardial infarction) History of steroid therapy HLD (hyperlipidemia) HTN (hypertension) Hypothyroidism Implantable cardioverter-defibrillator (ICD) in situ Irregular heart beat Ischemic cardiomyopathy Monomorphic ventricular tachycardia Non-ST elevation (NSTEMI) myocardial infarction Nonalcoholic hepatosteatosis Nonrheumatic mitral valve regurgitation Nonrheumatic tricuspid (valve) insufficiency Old myocardial infarction Pacemaker Palpitations Paroxysmal a-fib Paroxysmal SVT (supraventricular tachycardia) Pre-syncope Presence of biventricular automatic cardioverter/defibrillator (AICD) Restless legs Right leg pain Shortness of breath Shortness of breath Syncope Ventricular tachyarrhythmia Ventricular tachycardia (paroxysmal) Wears hearing aid in both ears Home Medications duloxetine 60 mg PO DAILY 03/24/16 [History Last Taken 11/28/18] levothyroxine 75 mcg PO DAILY 03/24/16 [History Last Taken 11/28/18] vitamins A,C,Z-fkff-elcedm 1 ea PO QHS 03/24/16 [History Last Taken 11/27/18] cholecalciferol (vitamin D3) 50,000 unit PO MO 09/18/16 [History Last Taken 11/25/18] pregabalin 100 mg capsule 100 mg PO QHS 12/03/17 [History Last Taken 11/27/18] Systane Balance 1 drp RIGHT EYE BID 10/11/18 [History Last Taken 11/28/18] albuterol sulfate [ProAir HFA] 2 puff INHALATION TID PRN 10/11/18 [History Last Taken 11/26/18] donepezil [Aricept] 5 mg PO DAILY 10/11/18 [History Last Taken 11/28/18] gabapentin [Neurontin] 100 mg PO QHS 10/11/18 [History Last Taken 11/27/18] multivitamin with iron 1 tab PO BID 10/11/18 [History Last Taken 11/28/18] trazodone 50 mg PO QHS 10/11/18 [History Last Taken 11/27/18] melatonin 10 mg PO QHS 11/19/18 [History Last Taken 11/27/18] aspirin 81 mg PO DAILY 11/28/18 [History Last Taken 11/28/18] amlodipine 5 mg PO DAILY #0 tab 11/25/21 [Rx Last Taken 11/28/18] budesonide 0.5 mg INHALATION BID.RT #0 ml 11/25/21 [Rx Last Taken Unknown] bumetanide 0.5 mg PO BIDCM #0 tab 11/25/21 [Rx Last Taken 11/28/18] ferrous sulfate [FeroSul] 325 mg PO QODAY@1200 #0 tab 11/25/21 [Rx Last Taken Unknown] insulin lispro [Humalog KwikPen Insulin] See Protocol SUBCUT ACHS #0 ml 11/25/21 [Rx Last Taken Unknown] isosorbide mononitrate 60 mg PO DAILY #0 tab 11/25/21 [Rx Last Taken 11/28/18] menthol-zinc oxide [Calmoseptine] 1 applic TOPICAL BID #0 g 11/25/21 [Rx Last Taken Unknown] metoprolol tartrate 50 mg PO BID #0 tab 11/25/21 [Rx Last Taken Unknown] pantoprazole [Protonix] 40 mg PO BID #60 tab 11/25/21 [Rx Last Taken Unknown] nut.tx.gluc intol,lf,soy-fiber [Glucerna 1.2 Tru] 120 ml PO 4X/DAY #0 ml 11/29/21 [Rx Last Taken Unknown] spironolactone 25 mg PO DAILY #0 tab 11/29/21 [Rx Last Taken Unknown] hydrocodone-acetaminophen 1 tab PO Q6H PRN 3 Days #10 tab 12/16/21 [Rx Last Taken Unknown] hydroxyzine pamoate [Vistaril] 25 mg PO BID PRN 12/16/21 [History Last Taken Unknown] magnesium 400 mg PO DAILY 12/16/21 [History Last Taken Unknown] prednisone 20 mg PO DAILY 12/16/21 [History Last Taken Unknown] pregabalin [Lyrica] 50 mg PO DAILY 12/16/21 [History Last Taken Unknown] Allergy/AdvReac Type Severity Reaction Status Date / Time No Known Allergies Allergy Verified 12/16/21 21:49 Family History Son Asthma Father Cancer Mother Cancer Brother Cancer Surgical History Aortocoronary bypass status (~12/08/02) History of coronary artery stent placement History of mastectomy Postsurgical percutaneous transluminal coronary angioplasty (PTCA) status Presence of stent in coronary artery (~11/30/01) S/P implantation of automatic cardioverter/defibrillator (AICD) Social History household members: none Smoking Status: Former smoker alcohol intake: never substance use type: does not use ROS ROS ED Constitutional Constitutional ED: Denies chills or fever(s) Eyes Eyes: Denies blurry vision or diplopia ENT ENT ED: Denies rhinorrhea or sore throat Cardiovascular Cardiovascular: Denies chest pain or palpitations Respiratory/Chest Respiratory/Chest: Denies cough or dyspnea Gastrointestinal Gastrointestinal: Denies abdominal pain, nausea or vomiting Genitourinary Genitourinary ED: Denies dysuria, hematuria or urinary frequency Musculoskeletal Musculoskeletal: Reports back pain and other Details: Right hip pain ; Denies arthralgias Integumentary Denies Abrasions or rash Neurologic Neurologic: Denies headache(s), paresthesias or weakness Psychiatric Psychiatric: Denies anxiety or depression EXAM Physical Exam Const Vital Signs: 12/16/21 21:46 12/16/21 21:50 Temperature 97.4 F L Temperature Source Temporal Pulse Rate 69 Respiratory Rate 18 Respiratory Effort Normal Non-Labored Respiratory Pattern Normal Blood Pressure 113/64 Blood Pressure Mean 80 Pulse Ox 99 Oxygen Delivery Method Nasal Cannula Oxygen Flow Rate (L/min) 4 Positive well nourished General Appearance ED: NAD HEENT normocephalic and atraumatic Eyes PERRL Chest Wall inspection of chest normal Resp normal respiratory effort and clear to auscultation bilaterally Cardio regular rate and regular rhythm GI non-tender and non-distended Auscultation: normoactive bowel sounds Palpation: soft Back/Spine no CVA tenderness Extremity full ROM Extremity Narrative: Right lumbar paraspinal muscular tenderness extending to the right gluteal region. There is tenderness palpation of the right greater trochanter. Patient able to flex her hip actively and passively without limitation. No obvious deformities. No ecchymosis or rash overlying the lumbar spine or hip. Negative logroll. No right leg shortening or external rotation. General Extremety ED: Negative for edema General Extremity: Negative for edema Neuro oriented x3, CN's II-XII intact bilaterally and moves all extremities Sensorium / Orientation: alert Motor Exam: strength 5/5 throughout MDM MDM MDM Narrative Medical decision making narrative: Patient presenting with chronic right hip and right lower back pain. She had injection done by Dr. Isbell about 2 weeks and her pain is slowly increasing. It is unclear why the physician at her facility has not contacted Dr. Isbell, nor is it clear why they have not tried giving her pain medication for her chronic hip pain and back pain. She has no red flag signs or symptoms associate with her back pain. She is ambulatory. I did obtain images of the lumbar spine and the right hip and pelvis which on my interpretation show no acute fractures but do show chronic degenerative changes. The radiologist does agree. Patient was given morphine and a Lidoderm patch here in the ER. She will be given Keenes for pain until she can see her pain management physician. Patient discharged home in stable condition. Impression: 1. Acute exacerbation of chronic right hip pain 2. Acute exacerbation of chronic lumbar back pain Lab Data Attestation: I reviewed the patient's lab results. Radiography Diagnostic Testing: Clinical Impression(s) from Imaging Studies Lumbar Spine X-Ray 12/16/21 22:16 IMPRESSION: Degenerative changes of the lower lumbar spine without acute fracture or subluxation. Electronically Signed: Neal Falcon DO at 23:02 EDT Reading Location ID and State: [address] [place] [address] Tel [phone], Service support , Hip/Pelvis X-Ray 12/16/21 22:42 IMPRESSION: Degenerative changes of right hip without acute fracture or dislocation. Electronically Signed: Neal Falcon DO at 23:08 EDT Reading Location ID and State: [address] [place] [address] Tel [phone], Service support , Discharge Plan Triage Chief Complaint: Other, Pain/Inj ED Provider: Wallace Seo Dx/Rx/DC Orders Instructions: Hip Osteoarthritis, ED Back Pain (Acute or Chronic) Prescriptions: New hydrocodone-acetaminophen 5-325 mg tablet 1 tab PO Q6H PRN (Reason: pain) 3 Days Qty: 10 RF: 0 No Action pregabalin [Lyrica] 100 mg capsule 100 mg PO QHS RF: 0 levothyroxine 75 MCG tablet 75 mcg PO DAILY RF: 0 Hold Instructions: Resume on 12/08/21. Repeat thyroid function test after 2 weeks duloxetine 60 MG capsule 60 mg PO DAILY RF: 0 vitamins A,C,X-zglo-clpjsh 1 EACH capsule 1 ea PO QHS RF: 0 cholecalciferol (vitamin D3) 50,000 UNIT capsule 50,000 unit PO MO RF: 0 donepezil [Aricept] 5 MG tablet 5 mg PO DAILY RF: 0 trazodone 50 MG tablet 50 mg PO QHS RF: 0 gabapentin [Neurontin] 100 MG capsule 100 mg PO QHS RF: 0 albuterol sulfate [ProAir HFA] 1 PUFF inhaler 2 puff inhalation TID PRN (Reason: Sob &/Or Wheezing) RF: 0 multivitamin with iron 1 EACH tablet 1 tab PO BID RF: 0 Systane Balance 10 ML drops 1 drp Right Eye BID RF: 0 melatonin 10 MG tablet 10 mg PO QHS RF: 0 aspirin 81 MG tablet 81 mg PO DAILY RF: 0 ferrous sulfate [FeroSul] 325 mg (65 mg iron) Tablet 325 mg PO QODAY@1200 Qty: 0 RF: 0 metoprolol tartrate 50 mg Tablet 50 mg PO BID Qty: 0 RF: 0 budesonide 0.5 mg/2 mL Suspension For Nebulization 0.5 mg inhalation BID.RT Qty: 0 RF: 0 insulin lispro [Humalog KwikPen Insulin] 100 unit/mL Insulin Pen See Protocol unit subcut ACHS Qty: 0 RF: 0 menthol-zinc oxide [Calmoseptine] 0.44-20.6 % Ointment 1 applic topical BID Qty: 0 RF: 0 pantoprazole [Protonix] 40 mg tablet,delayed release (DR/EC) 40 mg PO BID Qty: 60 RF: 0 amlodipine 5 MG tablet 5 mg PO DAILY Qty: 0 RF: 0 isosorbide mononitrate 120 MG tablet 60 mg PO DAILY Qty: 0 RF: 0 bumetanide 0.5 mg tablet 0.5 mg PO BIDCM Qty: 0 RF: 0 spironolactone 25 mg Tablet 25 mg PO DAILY Qty: 0 RF: 0 Glucerna 1.2 Tru 0.06-1.2 gram-kcal/mL Liquid 120 ml PO 4X/DAY Qty: 0 RF: 0 prednisone 20 mg Tablet 20 mg PO DAILY RF: 0 hydroxyzine pamoate [Vistaril] 25 mg Capsule 25 mg PO BID PRN (Reason: Anxiety) RF: 0 magnesium 200 mg Tablet 400 mg PO DAILY RF: 0 pregabalin [Lyrica] 50 mg Capsule 50 mg PO DAILY RF: 0 Primary Care Provider: Eve Soto Referrals: Jamie Isbell MD [STAFF PHYSICIAN] - As soon as possible Eve Soto MD [Primary Care Provider] - Disposition Disposition: Home, Self Care
[2021-12-16] MEDS: Lidocaine 5% Patch 1 PATCH TOPICAL (22:24)
[2021-12-16] MEDS: Morphine 4 MG/ML Syringe IM (22:24)
--- NOTE | 2021-12-16 22:42 | RAD_ITS ---
STUDY: X-RAY - PELVIS AND RIGHT HIP REASON FOR EXAM: Female, 81 years old. Severe chronic right hip pain. TECHNIQUE: 3 views of the pelvis and hip. COMPARISON: None. FINDINGS: There is a non-specific bowel gas pattern. Normal visualized soft tissue structures. Common iliac arterial stents. Normal bilateral iliac wings, sacroiliac joints and visualized sacrum. Normal bilateral superior and inferior pubic rami. Normal pubic symphysis. Normal bilateral ischial tuberosities. Normal visualized right femoral head. Normal right acetabulum. There is moderate articular joint space narrowing of the right hip. RAD/HIP, UNI W/ Pelvis 2-3 Views IMPRESSION: Degenerative changes of right hip without acute fracture or dislocation. Electronically Signed: Neal Falcon DO at 23:08 EDT ,
[2021-12-17 00:25] VITALS: BP 136/78; PULSE 68; RESP 16; O2SAT 98
== END 2021-12-17 00:26 | disposition home or self-care (01) ==
PROVIDERS: Emergency Provider Student in an Organized Health Care Education/Training Program; PCP Internal Medicine; Visit Provider Student in an Organized Health Care Education/Training Program
DX: M25.551 Pain in right hip (principal); J44.9 Chronic obstructive pulmonary disease, unspecified; I48.0 Paroxysmal atrial fibrillation; E11.9 Type 2 diabetes mellitus without complications; Z79.4 Long term (current) use of insulin; M16.11 Unilateral primary osteoarthritis, right hip; I25.5 Ischemic cardiomyopathy; E78.5 Hyperlipidemia, unspecified; M47.816 Spondylosis without myelopathy or radiculopathy, lumbar region; I25.10 Atherosclerotic heart disease of native coronary artery without angina pectoris; I10 Essential (primary) hypertension; Z87.891 Personal history of nicotine dependence; G89.29 Other chronic pain; I25.2 Old myocardial infarction; Z95.810 Presence of automatic (implantable) cardiac defibrillator; I34.0 Nonrheumatic mitral (valve) insufficiency; K76.0 Fatty (change of) liver, not elsewhere classified; E03.9 Hypothyroidism, unspecified; Z85.3 Personal history of malignant neoplasm of breast; Z79.82 Long term (current) use of aspirin; Z79.899 Other long term (current) drug therapy; D64.9 Anemia, unspecified; M54.50 Low back pain, unspecified
CPT/HCPCS: 72100; 73502; 96372; 99285

== ENCOUNTER 2021-12-30 16:28 | Emergency (ER) | payer MEDICARE, MEDICAID, SELFPAY ==
[2021-12-30 16:29] VITALS: BP 133/61; PULSE 62; RESP 16; TEMP 36.7; O2SAT 96; BMI 21.0
--- NOTE | 2021-12-30 17:02 | EX.ED.DYSGE1 ---
HPI <EDA Abbott - Last Filed: 12/30/21 18:40> History of Present Illness Chief Complaint: Lower Extremity Injury Narrative Narrative: 81-year-old female presents for social problem. She states about a month ago she had a UTI with sepsis and she went to a rehab facility to recover. She was discharged home 4 days ago. She lives alone and ambulates with a walker. She states she is almost completely blind. She has home health aides 2 days a week for total of 9 hours. They prepare meals that she is able to heat up and she states her medicine is in pill packs which she has been taking appropriately. She has been able to ambulate throughout her home and do ADLs. However when she got home from the rehab her landline was shut off and her cell phone was not charged and she could not see to find a vinyl installer. She used her life alert and when EMS came they did not feel she was safe at home and brought her to the ED. Patient does not want a PE. Says she has no acute complaints. She had told triage about pain in her right lower back that radiates down the right lateral leg but this is chronic. There is no recent trauma or falls. No fever, chills, urinary symptoms, bladder or bowel incontinence, or saddle anesthesia. She is supposed to follow-up with Dr. Isbell for this issue but has not called him since getting home. REPLACED BY [facility] <EDA Abbott - Last Filed: 12/30/21 18:40> REPLACED BY [facility] Medical History Acute SC, inferoposterior wall, subsequent episode of care Anemia Angina pectoris Atherosclerotic heart disease of [place] coronary artery without angina pectoris Atrial fibrillation Blindness of both eyes Body mass index (bmi) 26.0-26.9, adult Breast cancer Cancer COPD (chronic obstructive pulmonary disease) Debility Diabetes mellitus Elevated troponin Essential hypertension Former smoker Hepatic insufficiency History of diabetes mellitus History of SC (myocardial infarction) History of steroid therapy HLD (hyperlipidemia) HTN (hypertension) Hypothyroidism Implantable cardioverter-defibrillator (ICD) in situ Irregular heart beat Ischemic cardiomyopathy Monomorphic ventricular tachycardia Non-ST elevation (NSTEMI) myocardial infarction Nonalcoholic hepatosteatosis Nonrheumatic mitral valve regurgitation Nonrheumatic tricuspid (valve) insufficiency Old myocardial infarction Pacemaker Palpitations Paroxysmal a-fib Paroxysmal SVT (supraventricular tachycardia) Pre-syncope Presence of biventricular automatic cardioverter/defibrillator (AICD) Restless legs Right leg pain Shortness of breath Shortness of breath Syncope Ventricular tachyarrhythmia Ventricular tachycardia (paroxysmal) Wears hearing aid in both ears Home Medications duloxetine 60 mg PO DAILY 03/24/16 [History Last Taken 11/28/18] levothyroxine 75 mcg PO DAILY 03/24/16 [History Last Taken 11/28/18] vitamins A,C,D-ssgi-wjhcfm 1 ea PO QHS 03/24/16 [History Last Taken 11/27/18] cholecalciferol (vitamin D3) 50,000 unit PO MO 09/18/16 [History Last Taken 11/25/18] pregabalin 100 mg capsule 100 mg PO QHS 12/03/17 [History Last Taken 11/27/18] Systane Balance 1 drp RIGHT EYE BID 10/11/18 [History Last Taken 11/28/18] albuterol sulfate [ProAir HFA] 2 puff INHALATION TID PRN 10/11/18 [History Last Taken 11/26/18] donepezil [Aricept] 5 mg PO DAILY 10/11/18 [History Last Taken 11/28/18] gabapentin [Neurontin] 100 mg PO QHS 10/11/18 [History Last Taken 11/27/18] multivitamin with iron 1 tab PO BID 10/11/18 [History Last Taken 11/28/18] trazodone 50 mg PO QHS 10/11/18 [History Last Taken 11/27/18] melatonin 10 mg PO QHS 11/19/18 [History Last Taken 11/27/18] aspirin 81 mg PO DAILY 11/28/18 [History Last Taken 11/28/18] amlodipine 5 mg PO DAILY #0 tab 11/25/21 [Rx Last Taken 11/28/18] budesonide 0.5 mg INHALATION BID.RT #0 ml 11/25/21 [Rx Last Taken Unknown] bumetanide 0.5 mg PO BIDCM #0 tab 11/25/21 [Rx Last Taken 11/28/18] ferrous sulfate [FeroSul] 325 mg PO QODAY@1200 #0 tab 11/25/21 [Rx Last Taken Unknown] insulin lispro [Humalog KwikPen Insulin] See Protocol SUBCUT ACHS #0 ml 11/25/21 [Rx Last Taken Unknown] isosorbide mononitrate 60 mg PO DAILY #0 tab 11/25/21 [Rx Last Taken 11/28/18] menthol-zinc oxide [Calmoseptine] 1 applic TOPICAL BID #0 g 11/25/21 [Rx Last Taken Unknown] metoprolol tartrate 50 mg PO BID #0 tab 11/25/21 [Rx Last Taken Unknown] pantoprazole [Protonix] 40 mg PO BID #60 tab 11/25/21 [Rx Last Taken Unknown] nut.tx.gluc intol,lf,soy-fiber [Glucerna 1.2 Tru] 120 ml PO 4X/DAY #0 ml 11/29/21 [Rx Last Taken Unknown] spironolactone 25 mg PO DAILY #0 tab 11/29/21 [Rx Last Taken Unknown] hydroxyzine pamoate [Vistaril] 25 mg PO BID PRN 12/16/21 [History Last Taken Unknown] magnesium 400 mg PO DAILY 12/16/21 [History Last Taken Unknown] prednisone 20 mg PO DAILY 12/16/21 [History Last Taken Unknown] pregabalin [Lyrica] 50 mg PO DAILY 12/16/21 [History Last Taken Unknown] hydrocodone-acetaminophen 1 tab PO Q6H PRN 3 Days #10 tab 12/17/21 [Rx Last Taken Unknown] Allergy/AdvReac Type Severity Reaction Status Date / Time No Known Allergies Allergy Verified 12/16/21 21:49 Family History Son Asthma Father Cancer Mother Cancer Brother Cancer Surgical History Aortocoronary bypass status (~12/08/02) History of coronary artery stent placement History of mastectomy Postsurgical percutaneous transluminal coronary angioplasty (PTCA) status Presence of stent in coronary artery (~11/30/01) S/P implantation of automatic cardioverter/defibrillator (AICD) Social History household members: none Smoking Status: Former smoker alcohol intake: never substance use type: does not use ROS <Dolly Glauthier, PA - Last Filed: 12/30/21 18:40> ROS ED ROS Narrative Constitutional: Negative for fever, chills, malaise. Eyes: Negative for visual change. ENT: Negative for sore throat, ear pain, rhinorrhea. CVS: Negative for palpitations, chest pain, syncope. Respiratory: Negative for shortness of breath, cough, orthopnea. GI: Negative for abdominal pain, nausea, vomiting, diarrhea, constipation, melena, hematochezia. : Negative for dysuria, hematuria or frequency. Neuro: Negative for headache, motor/sensory dysfunction. Skin: Negative for rash, abscess, or wound. Musc: Positive for back pain. Negative swelling, trauma. Heme: Negative for easy bruising, bleeding, lymphadenopathy. EXAM <EDA Abbott - Last Filed: 12/30/21 18:40> Physical Exam Narrative Exam Narrative: CONST: Patient sitting in no acute distress. EYES: Normal inspection. NECK: Normal inspection. RESP: No respiratory distress, CTAB. CVS: Regular rate and rhythm, no murmur, no gallop. ABD: Soft and nontender, no guarding or rebound, nondistended. Back: Normal inspection, no midline tenderness or step-offs, reproducible right lumbar paraspinal tenderness. SKIN: Color normal, no rash, warm, dry, intact. EXTREMITIES: Normal appearance of bilateral upper and lower extremities. Full range of motion of right lower extremity, no pain with active or passive hip flexion. 5/5 strength, normal sensation, 2+ DP pulses. NEURO: Oriented x4. PSYCH: Normal affect. Const Vital Signs: 12/30/21 16:29 12/30/21 18:15 12/30/21 18:45 Temperature 98.1 F Temperature Source Temporal Pulse Rate 62 70 70 Respiratory Rate 16 18 18 Blood Pressure 133/61 H 131/89 H 131/89 H Blood Pressure Mean 85 103 Pulse Ox 96 96 93 Oxygen Delivery Method Room Air Room Air <Dr. Kelly Bull MD - Last Filed: 12/30/21 22:34> Physical Exam Const Vital Signs: 12/30/21 16:29 12/30/21 18:15 12/30/21 18:45 Temperature 98.1 F Temperature Source Temporal Pulse Rate 62 70 70 Respiratory Rate 16 18 18 Blood Pressure 133/61 H 131/89 H 131/89 H Blood Pressure Mean 85 103 Pulse Ox 96 96 93 Oxygen Delivery Method Room Air Room Air [facility] <EDA Abbott - Last Filed: 12/30/21 18:40> [facility] Narrative Medical decision making narrative: Patient presents for social issues. She just got home from rehab and her phone was not charged no acute medical issues. She appears well nontoxic. Medical exam benign. The back pain mentioned in triage is chronic and there are no new trauma or red flag symptoms. I had social work speak with her. Patient already has passport services so our social media director call and leave a message for her block and case maker to discuss if she may need more in-home services. She was also given information for the community action senior program who can visit and discussed their resources. At this time patient wants to go home. We offered to charge her phone here which she declined. She states the EMT showed her how to charge and she will be able to do this when she gets home. She also states she has resources to call in for her landline bill to get it reinstated. She states she is handling ADLs appropriately. She will be discharged home to follow-up with her PCP. 1. Social issue 2. Chronic pain and right hip pain <Dr. Kelly Bull MD - Last Filed: 12/30/21 22:34> [facility] Treatment and Re-Evaluation Narrative: Patient seen and evaluated with DAVID. I personally interviewed and examined the patient. I was involved in all aspects of patient's orders, interpretation of results, and treatment. Patient presents via EMS for safety and wellness concerns. Patient currently lives alone. She was discharged from the [facility] earlier this week. She is legally blind but is able to see well enough to eat up her meals. She has home health that comes in for a total of 9 hours a week. Patient reportedly has her home phone turned off because she did not pay the bill when she was in the [facility]. She could not find her phone vinyl installer today to charge her cell phone. She hit her life alert button and EMS arrived. They were concerned for her safety and brought her in for evaluation. Patient sitting upright in bed no acute distress. She is alert and talkative. Head and neck examination unremarkable. Heart regular rate and rhythm. Lung sounds are clear. Abdomen is soft nontender. Neuro exam reveals no focal deficits. Patient does complain of some back and hip pain which she states is chronic and unchanged. She has not had any falls. Patient was evaluated by social work. They will make appropriate referrals to try to get her more assistance at home. At this time she does know where her phone vinyl installer is and feels that she can take care of herself. I do not have anything to put her in the hospital for or force stay at rehab/extended care facility. Patient understands that she can return if she is unable to care for herself. Discharge Plan Triage Chief Complaint: Lower Extremity Injury ED Midlevel Provider: Dolly Rebollar ED Provider: Kelly Bull Dx/Rx/DC Orders Clinical Impression: Chronic pain Instructions: ED Chronic Pain Prescriptions: No Action pregabalin [Lyrica] 100 mg capsule 100 mg PO QHS RF: 0 levothyroxine 75 MCG tablet 75 mcg PO DAILY RF: 0 Hold Instructions: Resume on 12/08/21. Repeat thyroid function test after 2 weeks duloxetine 60 MG capsule 60 mg PO DAILY RF: 0 vitamins A,C,Q-bvzk-dwwocs 1 EACH capsule 1 ea PO QHS RF: 0 cholecalciferol (vitamin D3) 50,000 UNIT capsule 50,000 unit PO MO RF: 0 donepezil [Aricept] 5 MG tablet 5 mg PO DAILY RF: 0 trazodone 50 MG tablet 50 mg PO QHS RF: 0 gabapentin [Neurontin] 100 MG capsule 100 mg PO QHS RF: 0 albuterol sulfate [ProAir HFA] 1 PUFF inhaler 2 puff inhalation TID PRN (Reason: Sob &/Or Wheezing) RF: 0 multivitamin with iron 1 EACH tablet 1 tab PO BID RF: 0 Systane Balance 10 ML drops 1 drp Right Eye BID RF: 0 melatonin 10 MG tablet 10 mg PO QHS RF: 0 aspirin 81 MG tablet 81 mg PO DAILY RF: 0 ferrous sulfate [FeroSul] 325 mg (65 mg iron) Tablet 325 mg PO QODAY@1200 Qty: 0 RF: 0 metoprolol tartrate 50 mg Tablet 50 mg PO BID Qty: 0 RF: 0 budesonide 0.5 mg/2 mL Suspension For Nebulization 0.5 mg inhalation BID.RT Qty: 0 RF: 0 insulin lispro [Humalog KwikPen Insulin] 100 unit/mL Insulin Pen See Protocol unit subcut ACHS Qty: 0 RF: 0 menthol-zinc oxide [Calmoseptine] 0.44-20.6 % Ointment 1 applic topical BID Qty: 0 RF: 0 pantoprazole [Protonix] 40 mg tablet,delayed release (DR/EC) 40 mg PO BID Qty: 60 RF: 0 amlodipine 5 MG tablet 5 mg PO DAILY Qty: 0 RF: 0 isosorbide mononitrate 120 MG tablet 60 mg PO DAILY Qty: 0 RF: 0 bumetanide 0.5 mg tablet 0.5 mg PO BIDCM Qty: 0 RF: 0 spironolactone 25 mg Tablet 25 mg PO DAILY Qty: 0 RF: 0 Glucerna 1.2 Tru 0.06-1.2 gram-kcal/mL Liquid 120 ml PO 4X/DAY Qty: 0 RF: 0 prednisone 20 mg Tablet 20 mg PO DAILY RF: 0 hydroxyzine pamoate [Vistaril] 25 mg Capsule 25 mg PO BID PRN (Reason: Anxiety) RF: 0 magnesium 200 mg Tablet 400 mg PO DAILY RF: 0 pregabalin [Lyrica] 50 mg Capsule 50 mg PO DAILY RF: 0 hydrocodone-acetaminophen 5-325 mg tablet 1 tab PO Q6H PRN (Reason: pain) 3 Days Qty: 10 RF: 0 Primary Care Provider: Eve Soto Referrals: Eve Soto MD [Primary Care Provider] - Activity Restrictions/Additional Instructions: Our social media director will leave a message for her passport block and case maker to see if they can provide you additional services. She also gave you instructions about the [facility] program. He can speak with them and see if any other services they offer would benefit you. Disposition Disposition: Home, Self Care Discharge Date/Time: 12/30/21 20:16
[2021-12-30 18:15] VITALS: BP 131/89; PULSE 70; RESP 18; O2SAT 96
[2021-12-30 18:45] VITALS: BP 131/89; PULSE 70; RESP 18; O2SAT 93
--- NOTE | 2021-12-30 19:11 | CM.ED ---
TOYIN Note Referral Source: FARM MACHINERY ASSEMBLER Referral Reason: Supportive Services TOYIN and TOYIN Lieberman met with patient. Patient said that she was doing well at home but she didn't know how to charge her phone at home but the EMT showed her how. Patient said that she has 3 phones at home. Patient said that she has home health through [facility] and has home health through [facility]. Patient was open to this travel writer calling her casemanager to see if they could reevaluate patient to see if she needs additional supports in the house. Patient said that the only issue is her phone and indicated she has the money to pay the bill. Patient was open to referral to [facility]. FARM MACHINERY ASSEMBLER updated. Plan: Home with [facility] Radha KELLY
--- NOTE | 2021-12-30 19:30 | ED.RN ---
Nurse asked me to call for a taxi, they said [facility] she had vouchers for them. When I called [facility] they said absolutely not. They are now not answering our phone calls, I have tried to call now 4 times and no answer.
== END 2021-12-30 20:16 | disposition home or self-care (01) ==
PROVIDERS: Emergency Provider Emergency Medicine; PCP Internal Medicine; Visit Provider Emergency Medicine
DX: M25.551 Pain in right hip (principal); J44.9 Chronic obstructive pulmonary disease, unspecified; I48.0 Paroxysmal atrial fibrillation; G89.29 Other chronic pain; Z87.440 Personal history of urinary (tract) infections; Z86.19 Personal history of other infectious and parasitic diseases; I25.10 Atherosclerotic heart disease of native coronary artery without angina pectoris; I25.2 Old myocardial infarction; Z85.3 Personal history of malignant neoplasm of breast; E78.5 Hyperlipidemia, unspecified; I10 Essential (primary) hypertension; E03.9 Hypothyroidism, unspecified; Z95.810 Presence of automatic (implantable) cardiac defibrillator; I25.5 Ischemic cardiomyopathy; K76.0 Fatty (change of) liver, not elsewhere classified; I34.0 Nonrheumatic mitral (valve) insufficiency; Z79.82 Long term (current) use of aspirin; Z79.899 Other long term (current) drug therapy; Z87.891 Personal history of nicotine dependence
CPT/HCPCS: 99284

== ENCOUNTER 2022-01-07 22:17 | Emergency (ER) | payer MEDICARE, MEDICAID, SELFPAY ==
--- NOTE | 2022-01-07 00:01 | RAD_ITS ---
STUDY: X-RAY - LUMBAR SPINE REASON FOR EXAM: Female, 81 years old. Right-sided sciatica. TECHNIQUE: 3 view(s) of the lumbar spine were obtained. COMPARISON: December 16, 2021. FINDINGS: Normal lumbar lordosis. There is no substantial scoliosis. There is a normal alignment of the vertebrae. Superior endplate depression of L5 unchanged. Disc space narrowing L4-5 and L5-S1. Facet hypertrophy L4-L5 and L5-S1. Generalized osteopenia present previously. The soft tissue structures are unremarkable. Bilateral common iliac arterial stents. Diffuse atherosclerotic calcification of the distal abdominal aorta. RAD/Lumbar Spine 2 or 3 Views IMPRESSION: Degenerative changes L4-5 and L5-S1 which have remained stable. Old mild compression fracture of L5 unchanged. Electronically Signed: Juan Saunders MD at 0:32 EDT Reading Location ID and State: [id number] / , Service support ,
[2022-01-07 22:18] VITALS: BP 131/69; PULSE 148; RESP 20; TEMP 36.6; O2SAT 95; BMI 22.1
--- NOTE | 2022-01-07 23:19 | EKG12_ITS ---
Test Reason : ARHYTHMIA Blood Pressure : / mmHG Vent. Rate : 094 BPM Atrial Rate : 094 BPM P-R Int : 168 ms QRS Dur : 110 ms QT Int : 374 ms P-R-T Axes : 072 031 169 degrees QTc Int : 467 ms NSR, PVC Incomplete left bundle branch block Left ventricular hypertrophy with repolarization abnormality Abnormal ECG Confirmed by DAYNA KILLIAN, COBY ([id number]), dictionary editor DARBY GARCIA ([id number]) on 01/09/2022 11:40:39 AM Referred By: FAUSTINO Confirmed By:COBY MCINTOSH MD
[2022-01-07 23:21] VITALS: BP 140/67; PULSE 98; RESP 17; O2SAT 96
[2022-01-07] MEDS: HYDROcodone Bitartrate/Apap 5/325 Tablet PO (23:47)
--- NOTE | 2022-01-07 23:56 | EX.ED.DYSGE1 ---
HPI History of Present Illness Chief Complaint: Lower Extremity Injury Informant: patient and family Onset/Context/Timing Onset: Today (JPTA) Context: Sudden Onset (without warning) Timing: - (once) Quality: defibrillatory fired Location: chest Current Severity: Gone Maximum Severity: Severe Worsened by: n/a Relieved by: n/a Associated Symptoms Associated Symptoms: none Narrative Narrative: Patient's defibrillator fired tonight. She denies any prodromal symptoms right before it at all. She was in the kitchen preparing a bowl of cereal when suddenly she felt like a boom went off in her chest. She has been having pounding palpitations off-and-on for the last week or so, but did not happen today, nor before the fire. No recent illness. She has had pain down her right lower extremity for months, and she seems more concerned about that as does family. Her defibrillator has never fired before and she has had it for over 10 years. They do not know the brand of the device. The pain in her leg is mostly in her right buttock and hip, and also the lateral right knee and calf at times. Hurts to move and to walk, but no claudication; just taking 1 step makes these areas hurt. She denies tingling or weakness. [facility] Medical History Acute HI, inferoposterior wall, subsequent episode of care Anemia Angina pectoris Atherosclerotic heart disease of [place] coronary artery without angina pectoris Atrial fibrillation Blindness of both eyes Body mass index (bmi) 26.0-26.9, adult Breast cancer Cancer COPD (chronic obstructive pulmonary disease) Debility Diabetes mellitus Elevated troponin Essential hypertension Former smoker Hepatic insufficiency History of diabetes mellitus History of HI (myocardial infarction) History of steroid therapy HLD (hyperlipidemia) HTN (hypertension) Hypothyroidism Implantable cardioverter-defibrillator (ICD) in situ Irregular heart beat Ischemic cardiomyopathy Monomorphic ventricular tachycardia Non-ST elevation (NSTEMI) myocardial infarction Nonalcoholic hepatosteatosis Nonrheumatic mitral valve regurgitation Nonrheumatic tricuspid (valve) insufficiency Old myocardial infarction Pacemaker Palpitations Paroxysmal a-fib Paroxysmal SVT (supraventricular tachycardia) Pre-syncope Presence of biventricular automatic cardioverter/defibrillator (AICD) Restless legs Right leg pain Shortness of breath Shortness of breath Syncope Ventricular tachyarrhythmia Ventricular tachycardia (paroxysmal) Wears hearing aid in both ears Home Medications duloxetine 60 mg PO DAILY 03/24/16 [History Last Taken 11/28/18] levothyroxine 75 mcg PO DAILY 03/24/16 [History Last Taken 11/28/18] vitamins A,C,R-kaad-drmxeq 1 ea PO QHS 03/24/16 [History Last Taken 11/27/18] cholecalciferol (vitamin D3) 50,000 unit PO MO 09/18/16 [History Last Taken 11/25/18] pregabalin 100 mg capsule 100 mg PO QHS 12/03/17 [History Last Taken 11/27/18] Systane Balance 1 drp RIGHT EYE BID 10/11/18 [History Last Taken 11/28/18] albuterol sulfate [ProAir HFA] 2 puff INHALATION TID PRN 10/11/18 [History Last Taken 11/26/18] donepezil [Aricept] 5 mg PO DAILY 10/11/18 [History Last Taken 11/28/18] gabapentin [Neurontin] 100 mg PO QHS 10/11/18 [History Last Taken 11/27/18] multivitamin with iron 1 tab PO BID 10/11/18 [History Last Taken 11/28/18] trazodone 50 mg PO QHS 10/11/18 [History Last Taken 11/27/18] melatonin 10 mg PO QHS 11/19/18 [History Last Taken 11/27/18] aspirin 81 mg PO DAILY 11/28/18 [History Last Taken 11/28/18] amlodipine 5 mg PO DAILY #0 tab 11/25/21 [Rx Last Taken 11/28/18] budesonide 0.5 mg INHALATION BID.RT #0 ml 11/25/21 [Rx Last Taken Unknown] bumetanide 0.5 mg PO BIDCM #0 tab 11/25/21 [Rx Last Taken 11/28/18] ferrous sulfate [FeroSul] 325 mg PO QODAY@1200 #0 tab 11/25/21 [Rx Last Taken Unknown] insulin lispro [Humalog KwikPen Insulin] See Protocol SUBCUT ACHS #0 ml 11/25/21 [Rx Last Taken Unknown] isosorbide mononitrate 60 mg PO DAILY #0 tab 11/25/21 [Rx Last Taken 11/28/18] menthol-zinc oxide [Calmoseptine] 1 applic TOPICAL BID #0 g 11/25/21 [Rx Last Taken Unknown] metoprolol tartrate 50 mg PO BID #0 tab 11/25/21 [Rx Last Taken Unknown] pantoprazole [Protonix] 40 mg PO BID #60 tab 11/25/21 [Rx Last Taken Unknown] Glucerna 1.2 Tru 120 ml PO 4X/DAY #0 ml 11/29/21 [Rx Last Taken Unknown] spironolactone 25 mg PO DAILY #0 tab 11/29/21 [Rx Last Taken Unknown] hydroxyzine pamoate [Vistaril] 25 mg PO BID PRN 12/16/21 [History Last Taken Unknown] magnesium 400 mg PO DAILY 12/16/21 [History Last Taken Unknown] prednisone 20 mg PO DAILY 12/16/21 [History Last Taken Unknown] pregabalin [Lyrica] 50 mg PO DAILY 12/16/21 [History Last Taken Unknown] hydrocodone-acetaminophen 1 tab PO Q6H PRN 3 Days #10 tab 12/17/21 [Rx Last Taken Unknown] amiodarone 200 mg PO BID #14 tab 01/08/22 [Rx Last Taken Unknown] amiodarone 200 mg PO DAILY #30 tab 01/08/22 [Rx Last Taken Unknown] Allergy/AdvReac Type Severity Reaction Status Date / Time No Known Allergies Allergy Verified 01/07/22 22:25 Family History Son Asthma Father Cancer Mother Cancer Brother Cancer Surgical History Aortocoronary bypass status (~12/08/02) History of coronary artery stent placement History of mastectomy Postsurgical percutaneous transluminal coronary angioplasty (PTCA) status Presence of stent in coronary artery (~11/30/01) S/P implantation of automatic cardioverter/defibrillator (AICD) Social History household members: none Smoking Status: Former smoker alcohol intake: never substance use type: does not use ROS ROS ED Constitutional Constitutional ED: Denies chills or fever(s) Eyes Eyes: Denies change in vision or diplopia ENT ENT ED: Denies rhinorrhea or sore throat Cardiovascular Cardiovascular: Denies chest pain or palpitations Respiratory/Chest Respiratory/Chest: Denies cough or dyspnea Gastrointestinal Gastrointestinal: Denies abdominal pain, diarrhea, nausea or vomiting Genitourinary Genitourinary ED: Denies dysuria or hematuria Musculoskeletal Musculoskeletal: Reports back pain, extremity pain and radiating pain into limb; Denies neck pain Integumentary Denies abscess or rash Neurologic Neurologic: Denies headache(s), paresthesias or weakness Psychiatric Psychiatric: Denies anxiety or suicidal thoughts EXAM Physical Exam Const Vital Signs: 01/07/22 22:18 01/07/22 23:21 01/08/22 00:26 Temperature 97.8 F Temperature Source Temporal Pulse Rate 148 H 98 Respiratory Rate 20 H 17 Blood Pressure 131/69 H 140/67 H 142/79 H Blood Pressure Mean 89 91 100 Pulse Ox 95 96 97 Oxygen Delivery Method Room Air Room Air Room Air 01/08/22 02:00 Temperature Temperature Source Pulse Rate 55 L Respiratory Rate 15 Blood Pressure 123/105 H Blood Pressure Mean 111 Pulse Ox 98 Oxygen Delivery Method Room Air Positive well nourished and well developed General Appearance ED: well developed and NAD HEENT Reports moist mucous membranes normocephalic and atraumatic Eyes PERRL and EOMs intact bilaterally Neck full ROM and supple Resp normal respiratory effort and clear to auscultation bilaterally Cardio regular rate, regular rhythm and no JVD Cardio Narrative: Frequently irregular GI non-tender and non-distended Auscultation: normoactive bowel sounds Palpation: soft Back/Spine no CVA tenderness and normal ROM Back/Spine Narrative: No calf or thigh tenderness. General Back: other FROM Lumbar Spine / Lower Back: straight leg raise positive right at 60 degrees Extremity normal to inspection Extremity Narrative: Difficult to feel pulses distally both extremities. Cap refill 4-5 seconds symmetric both feet, which are warm. General Extremety ED: Yes pulses abnormal; Negative for edema or tenderness General Extremity: pulses abnormal; Negative for edema Neuro oriented x3, CN's II-XII intact bilaterally and no sensory deficits noted Sensorium / Orientation: awake and alert Motor Exam: strength 5/5 throughout Skin no rashes or lesions noted and no wounds MDM MDM MDM Narrative Medical decision making narrative: In looking at her chart it appears that she has an ICD because of paroxysmal ventricular tachycardia. Records reflect that she has a [employer] device. We did query the device, it appears that she was in and out a ventricular tachycardia all day, and then it finally cardioverted her for what appeared to be sustained ventricular tachycardia. I reviewed her medication list, however it is not up-to-date, she did not bring it with her, and none of them know her medications without looking at the actual bottles. She does not appear to be on an antidysrhythmic, she is on metoprolol 50 mg twice daily. According to her last cardiology note on 11/23/2021, she had been on amiodarone at some point in the past but it had been discontinued and it is unclear why or when. Her work-up shows a slightly elevated troponin at 86. I obtained a 3 view lumbar spine x-ray because of her right lower extremity discomfort and back pain which sounds like sciatica, my interpretation they show degenerative changes/arthritis nothing acute. Radiology interpretation noted with old mild compression fracture L5 unchanged. She had no other events while in the emergency department. I discussed with cardiology Dr. Kessler. He recommends restarting her on amiodarone, giving her a dose of 400 mg here, prescribing 200 mg twice daily for the first week, then 200 mg daily after that and following up closely as an outpatient. Discussed at length with her and her family, they are comfortable with that overall plan we discussed reasons to return. Lab Data Attestation: I reviewed the patient's lab results. Labs: Laboratory Results - last 24 hr 01/07/22 01/07/22 23:30 23:30 WBC 8.8 RBC 3.52 L Hgb 13.1 Hct 38.1 MCV 108.2 H MCH 37.2 H MCHC 34.4 RDW Std Deviation 55.3 H RDW Coeff of Ella 13.9 Plt Count 165 MPV 13.4 H Immature Gran % (Auto) 0.300 Neut % (Auto) 68.7 Lymph % (Auto) 19.3 Potter % (Auto) 8.3 Eos % (Auto) 2.7 Baso % (Auto) 0.7 Absolute Neuts (auto) 6.1 Absolute Lymphs (auto) 1.70 Nucleated RBC % 0 Sodium 141 Potassium 3.4 L Chloride 105 Carbon Dioxide 30.0 Anion Gap 6 BUN 14 Creatinine 0.73 Estim Creat Clear Calc 38.75 Est GFR (MDRD) Af Amer 99 Est GFR (MDRD) Non-Af 82 BUN/Creatinine Ratio 19.3 Glucose 177 H Calcium 9.6 Troponin I High Sens 86 H Radiography Diagnostic Testing: Clinical Impression(s) from Imaging Studies Lumbar Spine X-Ray 01/07/22 00:01 IMPRESSION: Degenerative changes L4-5 and L5-S1 which have remained stable. Old mild compression fracture of L5 unchanged. Electronically Signed: Juan Saunders MD at 0:32 EDT Reading Location ID and State: [place] / , Service support , Rhythm Strip Rhythm Strip: Sinus Rhythm Rate: 95 Ectopy: PVC(s) EKG Initial EKG: Attestation: I personally reviewed and interpreted this EKG as follows: Interpretation: Sinus Rhythm, No Acute Injury Pattern and S-T Depression (laterally; no ST elevations) Prior EKG tracings: available for review Prior: Unchanged Discharge Plan Triage Chief Complaint: Lower Extremity Injury ED Provider: Scar Longoria Dx/Rx/DC Orders Clinical Impression: Ventricular tachycardia (paroxysmal), AICD discharge Instructions: Ventricular Arrhythmia Prescriptions: New amiodarone 200 mg tablet 200 mg PO BID Qty: 14 RF: 0 amiodarone 200 mg tablet 200 mg PO DAILY Qty: 30 RF: 0 Continued pregabalin [Lyrica] 100 mg capsule 100 mg PO QHS RF: 0 levothyroxine 75 MCG tablet 75 mcg PO DAILY RF: 0 Hold Instructions: Resume on 12/08/21. Repeat thyroid function test after 2 weeks duloxetine 60 MG capsule 60 mg PO DAILY RF: 0 vitamins A,C,I-ppto-mjubvj 1 EACH capsule 1 ea PO QHS RF: 0 cholecalciferol (vitamin D3) 50,000 UNIT capsule 50,000 unit PO MO RF: 0 donepezil [Aricept] 5 MG tablet 5 mg PO DAILY RF: 0 trazodone 50 MG tablet 50 mg PO QHS RF: 0 gabapentin [Neurontin] 100 MG capsule 100 mg PO QHS RF: 0 albuterol sulfate [ProAir HFA] 1 PUFF inhaler 2 puff inhalation TID PRN (Reason: Sob &/Or Wheezing) RF: 0 multivitamin with iron 1 EACH tablet 1 tab PO BID RF: 0 Systane Balance 10 ML drops 1 drp Right Eye BID RF: 0 melatonin 10 MG tablet 10 mg PO QHS RF: 0 aspirin 81 MG tablet 81 mg PO DAILY RF: 0 ferrous sulfate [FeroSul] 325 mg (65 mg iron) Tablet 325 mg PO QODAY@1200 Qty: 0 RF: 0 metoprolol tartrate 50 mg Tablet 50 mg PO BID Qty: 0 RF: 0 budesonide 0.5 mg/2 mL Suspension For Nebulization 0.5 mg inhalation BID.RT Qty: 0 RF: 0 insulin lispro [Humalog KwikPen Insulin] 100 unit/mL Insulin Pen See Protocol unit subcut ACHS Qty: 0 RF: 0 menthol-zinc oxide [Calmoseptine] 0.44-20.6 % Ointment 1 applic topical BID Qty: 0 RF: 0 pantoprazole [Protonix] 40 mg tablet,delayed release (DR/EC) 40 mg PO BID Qty: 60 RF: 0 amlodipine 5 MG tablet 5 mg PO DAILY Qty: 0 RF: 0 isosorbide mononitrate 120 MG tablet 60 mg PO DAILY Qty: 0 RF: 0 bumetanide 0.5 mg tablet 0.5 mg PO BIDCM Qty: 0 RF: 0 spironolactone 25 mg Tablet 25 mg PO DAILY Qty: 0 RF: 0 Glucerna 1.2 Tru 0.06-1.2 gram-kcal/mL Liquid 120 ml PO 4X/DAY Qty: 0 RF: 0 prednisone 20 mg Tablet 20 mg PO DAILY RF: 0 hydroxyzine pamoate [Vistaril] 25 mg Capsule 25 mg PO BID PRN (Reason: Anxiety) RF: 0 magnesium 200 mg Tablet 400 mg PO DAILY RF: 0 pregabalin [Lyrica] 50 mg Capsule 50 mg PO DAILY RF: 0 hydrocodone-acetaminophen 5-325 mg tablet 1 tab PO Q6H PRN (Reason: pain) 3 Days Qty: 10 RF: 0 Primary Care Provider: Eve Soto Referrals: Eve Soto MD [Primary Care Provider] - Jimmy Rojas MD [STAFF PHYSICIAN] - As soon as possible Activity Restrictions/Additional Instructions: Starting amiodarone 200 mg tablet twice daily in the morning. The once daily prescription should be started next 01/15/2022. It was sent to [place] [facility]. Disposition Disposition: Home, Self Care
[2022-01-07 23:58] LABS: Absolute Neutrophil Count 6.1 X10^3/uL (2.0-7.7); Basophil# 0.06 X10^3/uL; Basophil% 0.7 % (0-1); Eosinophil# 0.24 X10^3/uL; Eosinophils% 2.7 % (0-5); Hematocrit 38.1 % (37-47); Hemoglobin 13.1 g/dL (12.0-15.0); Lymphocyte % 19.3 % (19-41); Mean Corp Hgb Conc 34.4 g/dL (32-36); Mean Corpuscular Hgb 37.2 pg (27.0-32.0); Mean Corpuscular Volume 108.2 fL (81-99); Mean Platelet Vol. 13.4 fl (6.2-12.0); Monocyte# 0.73 X10^3/uL; Monocyte% 8.3 % (0-10); NRBC Flagged by Analyzer 0 % (0-5); Neutrophil # 6.06 X10^3/uL (2.7-7.7); Neutrophil % 68.7 % (47-70); Platelet Count 165 K/mm3 (150-450); RBC Distribution Width CV 13.9 % (11.6-14.6); RBC Distribution Width SD 55.3 fl (35.1-43.9); Red Blood Count 3.52 M/mm3 (4.2-5.4); White Blood Count 8.8 K/mm3 (4.4-11.0)
[2022-01-08 00:16] LABS: Anion Gap 6 (5-15); BUN 14 mg/dL (7-18); BUN/Creat Ratio 19.3 RATIO (10-20); Calcium,Total 9.6 mg/dL (8.5-10.1); Chloride 105 mmol/L (98-107); Creatinine, Serum 0.73 mg/dL (0.55-1.02); EST Glomerular Filtration Rate 82 mL/min (>60); Est Glom Filt Rate - Afr Amer 99 mL/min (>60); Estimated Creatinine Clearance 38.75 ml/min; Glucose 177 mg/dL (74-106); Potassium 3.4 mmol/L (3.5-5.1); Sodium Level 141 mmol/L (136-145); Troponin-I HS 86 pg/mL (3.0-54.0)
[2022-01-08 00:26] VITALS: BP 142/79; O2SAT 97
--- NOTE | 2022-01-08 00:27 | NURSING ---
called and they have receive the report and will fax to us within 20 minutes
[2022-01-08] MEDS: Amiodarone 200 MG Tablet 400 MG PO (01:58)
[2022-01-08 02:00] VITALS: BP 123/105; PULSE 55; RESP 15; O2SAT 98
== END 2022-01-08 02:18 | disposition home or self-care (01) ==
PROVIDERS: Emergency Provider Emergency Medicine; PCP Internal Medicine; Visit Provider Emergency Medicine
DX: I47.2 Ventricular tachycardia (principal); J44.9 Chronic obstructive pulmonary disease, unspecified; I48.0 Paroxysmal atrial fibrillation; E11.9 Type 2 diabetes mellitus without complications; Z79.4 Long term (current) use of insulin; I25.10 Atherosclerotic heart disease of native coronary artery without angina pectoris; Z85.3 Personal history of malignant neoplasm of breast; Z95.810 Presence of automatic (implantable) cardiac defibrillator; I25.5 Ischemic cardiomyopathy; I34.0 Nonrheumatic mitral (valve) insufficiency; K76.0 Fatty (change of) liver, not elsewhere classified; I25.2 Old myocardial infarction; Z87.891 Personal history of nicotine dependence; E03.9 Hypothyroidism, unspecified; E78.5 Hyperlipidemia, unspecified; Z79.899 Other long term (current) drug therapy; Z79.82 Long term (current) use of aspirin; Z95.1 Presence of aortocoronary bypass graft
CPT/HCPCS: 72100; 80048; 84484; 85025; 93005; A4216

== ENCOUNTER 2022-01-08 15:05 | Inpatient (IN) | payer MEDICARE, MEDICAID, SELFPAY ==
[2022-01-08] VITALS (8 sets, daily range): BP systolic 108–140; BP diastolic 54–78; PULSE 86–108; RESP 17–24; TEMP 36.6–37.6; O2SAT 88–98; BMI 21.9; BMI 21.3
--- NOTE | 2022-01-08 15:14 | EKG12_ITS ---
Test Reason : HIP PAIN Blood Pressure : / mmHG Vent. Rate : 104 BPM Atrial Rate : 104 BPM P-R Int : 162 ms QRS Dur : 108 ms QT Int : 374 ms P-R-T Axes : 100 066 113 degrees QTc Int : 491 ms Sinus tachycardia Incomplete left bundle branch block Left ventricular hypertrophy with repolarization abnormality Abnormal ECG Confirmed by DAYNA KILLIAN, COBY ([id number]), brands editor NOEMI ROJO ([id number]) on 01/10/2022 7:20:11 AM Referred By: PIPPA Confirmed By:COBY MCINTOSH MD
[2022-01-08 15:29] LABS: Absolute Lymphocyte Count 0.74 X10^3/uL (0.83-4.51); Absolute Neutrophil Count 11.4 X10^3/uL (2.0-7.7); Basophil# 0.05 X10^3/uL; Basophil% 0.4 % (0-1); Eosinophils% 0.8 % (0-5); Hematocrit 36.9 % (37-47); Hemoglobin 12.4 g/dL (12.0-15.0); Lymphocyte # 0.74 X10^3/ul (0.83-4.51); Lymphocyte % 5.7 % (19-41); Mean Corp Hgb Conc 33.6 g/dL (32-36); Mean Corpuscular Hgb 36.6 pg (27.0-32.0); Mean Corpuscular Volume 108.8 fL (81-99); Mean Platelet Vol. 12.3 fl (6.2-12.0); Monocyte# 0.72 X10^3/uL; Monocyte% 5.5 % (0-10); NRBC Flagged by Analyzer 0 % (0-5); Neutrophil # 11.41 X10^3/uL (2.7-7.7); Neutrophil % 87.1 % (47-70); Platelet Count 155 K/mm3 (150-450); RBC Distribution Width CV 13.9 % (11.6-14.6); RBC Distribution Width SD 55.6 fl (35.1-43.9); Red Blood Count 3.39 M/mm3 (4.2-5.4); White Blood Count 13.1 K/mm3 (4.4-11.0)
--- NOTE | 2022-01-08 15:35 | RAD_ITS ---
EXAM: XR CHEST, 1 VIEW CLINICAL INDICATION: pain TECHNIQUE: Frontal view of the chest. This report was created using [email or web address] report generation technology. COMPARISON: 11/28/2018 FINDINGS: LUNGS AND PLEURAL SPACES: Pulmonary vascular congestion is present. Minimal pleural effusion suggested bilaterally. No pneumothorax. HEART: Mild cardiomegaly. MEDIASTINUM: Central airways and mediastinal contour are unremarkable. BONES/JOINTS: Unremarkable. SOFT TISSUES: Unremarkable. TUBES, LINES AND DEVICES: AICD wire remains in place. RAD/Chest 1 View (Portable) IMPRESSION: CHF. Electronically Signed: Mario Lopez MD at 16:04 EDT ,
--- NOTE | 2022-01-08 15:46 | EDS_ITS ---
HPI History of Present Illness Chief Complaint: Chest Pain Narrative Narrative: Patient's main concern is right hip and back pain, apparently she was seen yesterday had AICD firing and was found to have ventricular tachycardia. She was placed on amiodarone after discussing with cardiology, she went home and has not had any further events, however today her main complaint is right hip pain, this was addressed yesterday via an x-ray was thought to be sciatica. She tells me it is difficult for her to ambulate. She has no fever or chills. No cough or congestion. She is denying any current chest pain. [facility] Medical History Acute MN, inferoposterior wall, subsequent episode of care Anemia Angina pectoris Atherosclerotic heart disease of [place] coronary artery without angina pectoris Atrial fibrillation Blindness of both eyes Body mass index (bmi) 26.0-26.9, adult Breast cancer Cancer COPD (chronic obstructive pulmonary disease) Debility Diabetes mellitus Elevated troponin Essential hypertension Former smoker Hepatic insufficiency History of diabetes mellitus History of MN (myocardial infarction) History of steroid therapy HLD (hyperlipidemia) HTN (hypertension) Hypothyroidism Implantable cardioverter-defibrillator (ICD) in situ Irregular heart beat Ischemic cardiomyopathy Monomorphic ventricular tachycardia Non-ST elevation (NSTEMI) myocardial infarction Nonalcoholic hepatosteatosis Nonrheumatic mitral valve regurgitation Nonrheumatic tricuspid (valve) insufficiency Old myocardial infarction Pacemaker Palpitations Paroxysmal a-fib Paroxysmal SVT (supraventricular tachycardia) Pre-syncope Presence of biventricular automatic cardioverter/defibrillator (AICD) Restless legs Right leg pain Shortness of breath Shortness of breath Syncope Ventricular tachyarrhythmia Ventricular tachycardia (paroxysmal) Wears hearing aid in both ears Home Medications duloxetine 60 mg PO DAILY 03/24/16 [History Last Taken 11/28/18] levothyroxine 75 mcg PO DAILY 03/24/16 [History Last Taken 11/28/18] vitamins A,C,M-[id number]-[id number] 1 ea PO QHS 03/24/16 [History Last Taken 11/27/18] cholecalciferol (vitamin D3) 50,000 unit PO MO 09/18/16 [History Last Taken 11/25/18] pregabalin 100 mg capsule 100 mg PO QHS 12/03/17 [History Last Taken 11/27/18] Systane Balance 1 drp RIGHT EYE BID 10/11/18 [History Last Taken 11/28/18] albuterol sulfate [ProAir HFA] 2 puff INHALATION TID PRN 10/11/18 [History Last Taken 11/26/18] donepezil [Aricept] 5 mg PO DAILY 10/11/18 [History Last Taken 11/28/18] gabapentin [Neurontin] 100 mg PO QHS 10/11/18 [History Last Taken 11/27/18] multivitamin with iron 1 tab PO BID 10/11/18 [History Last Taken 11/28/18] trazodone 50 mg PO QHS 10/11/18 [History Last Taken 11/27/18] melatonin 10 mg PO QHS 11/19/18 [History Last Taken 11/27/18] aspirin 81 mg PO DAILY 11/28/18 [History Last Taken 11/28/18] amlodipine 5 mg PO DAILY #0 tab 11/25/21 [Rx Last Taken 11/28/18] budesonide 0.5 mg INHALATION BID.RT #0 ml 11/25/21 [Rx Last Taken Unknown] bumetanide 0.5 mg PO BIDCM #0 tab 11/25/21 [Rx Last Taken 11/28/18] ferrous sulfate [FeroSul] 325 mg PO QODAY@1200 #0 tab 11/25/21 [Rx Last Taken Unknown] insulin lispro [Humalog KwikPen Insulin] See Protocol SUBCUT ACHS #0 ml 11/25/21 [Rx Last Taken Unknown] isosorbide mononitrate 60 mg PO DAILY #0 tab 11/25/21 [Rx Last Taken 11/28/18] menthol-zinc oxide [Calmoseptine] 1 applic TOPICAL BID #0 g 11/25/21 [Rx Last Taken Unknown] metoprolol tartrate 50 mg PO BID #0 tab 11/25/21 [Rx Last Taken Unknown] pantoprazole [Protonix] 40 mg PO BID #60 tab 11/25/21 [Rx Last Taken Unknown] Glucerna 1.2 Tru 120 ml PO 4X/DAY #0 ml 11/29/21 [Rx Last Taken Unknown] spironolactone 25 mg PO DAILY #0 tab 11/29/21 [Rx Last Taken Unknown] hydroxyzine pamoate [Vistaril] 25 mg PO BID PRN 12/16/21 [History Last Taken Unknown] magnesium 400 mg PO DAILY 12/16/21 [History Last Taken Unknown] prednisone 20 mg PO DAILY 12/16/21 [History Last Taken Unknown] pregabalin [Lyrica] 50 mg PO DAILY 12/16/21 [History Last Taken Unknown] hydrocodone-acetaminophen 1 tab PO Q6H PRN 3 Days #10 tab 12/17/21 [Rx Last Taken Unknown] amiodarone 200 mg PO BID #14 tab 01/08/22 [Rx Last Taken Unknown] amiodarone 200 mg PO DAILY #30 tab 01/08/22 [Rx Last Taken Unknown] Allergy/AdvReac Type Severity Reaction Status Date / Time No Known Allergies Allergy Verified 01/07/22 22:25 Family History Son Asthma Father Cancer Mother Cancer Brother Cancer Surgical History Aortocoronary bypass status (~12/08/02) History of coronary artery stent placement History of mastectomy Postsurgical percutaneous transluminal coronary angioplasty (PTCA) status Presence of stent in coronary artery (~11/30/01) S/P implantation of automatic cardioverter/defibrillator (AICD) Social History household members: none Smoking Status: Former smoker alcohol intake: never substance use type: does not use ROS ROS ED ROS Narrative Past medical history: Reviewed, it is quite extensive I reviewed it at the bedside and in the medical record. Medications: Reviewed Social history: Lives at home, she tells me is becoming increasingly more difficult to ambulate. Review of systems: All systems negative except as indicated General: No fever Eyes: No visual changes ENT: No upper airway congestion, normal voice Neck: No neck pain Cardiovascular: No chest pain. No recent defibrillator discharge, At least not since yesterday Respiratory: No shortness of breath or cough Gastrointestinal: No abdominal pain, nausea vomiting or diarrhea Genitourinary: No dysuria Musculoskeletal: Right hip pain as in HPI Back: Back pain for about a week and a half. Skin: No rash Neurological: No memory loss, confusion or any focal weakness Psych: No recent behavioral changes Hematologic: No easy bleeding or easy bruising EXAM Physical Exam Narrative Exam Narrative: Physical exam General: Patient appears chronically ill, she appears in some distress Head: Normocephalic, Atraumatic Eyes: Conjunctiva not pale ENT: Moist mucous membranes Neck: Supple, Nontender, No lymphadenopathy Cardiovascular: Regular rate, Regular rhythm Respiratory: Coarse bilateral breath sounds. Abdomen: Soft, Nontender, Nondistended Back: Nontender, Normal Inspection. Negative for: CVA tenderness Extremities: She has normal flexion and extension and logrolling of her hip she has no pain. She has a positive straight leg test and she has quite a bit of calf pain. She has some paraspinal lumbar back pain. No step-offs Skin: Normal color, No rash Neurological: Alert, Normal Strength, Normal Sensation Psychological: Normal affect Const Vital Signs: 01/08/22 15:09 01/08/22 16:24 01/08/22 16:25 Temperature 99.6 F H Temperature Source Oral Pulse Rate 108 H 107 H Respiratory Rate 24 H 24 H Blood Pressure 137/78 H 140/55 H Blood Pressure Mean 97 83 Pulse Ox 93 88 97 Oxygen Delivery Method Room Air Room Air Nasal Cannula Oxygen Flow Rate (L/min) 2 MDM MDM MDM Narrative Medical decision making narrative: Patient did have multiple runs of V. tach, these were no more than about 3 beats each. She appears well and has an otherwise unremarkable work-up other than an elevated troponin but at this time she has no chest pain. Her hip is not allowing her to return back home, she lives by herself, she also lost her concentrator and her pulse ox was below 90s at home since she did not have the available oxygen. For these 3 reasons I will admit her. Lab Data Labs: Laboratory Results - last 24 hr 01/08/22 01/08/22 15:15 15:15 WBC 13.1 H RBC 3.39 L Hgb 12.4 Hct 36.9 L MCV 108.8 H MCH 36.6 H MCHC 33.6 RDW Std Deviation 55.6 H RDW Coeff of Ella 13.9 Plt Count 155 MPV 12.3 H Immature Gran % (Auto) 0.500 Neut % (Auto) 87.1 H Lymph % (Auto) 5.7 L [place] % (Auto) 5.5 Eos % (Auto) 0.8 Baso % (Auto) 0.4 Absolute Neuts (auto) 11.4 H Absolute Lymphs (auto) 0.74 L Nucleated RBC % 0 Sodium 137 Potassium 3.4 L Chloride 101 Carbon Dioxide 28.0 Anion Gap 8 BUN 11 Creatinine 0.71 Estim Creat Clear Calc 38.75 Est GFR (MDRD) Af Amer 102 Est GFR (MDRD) Non-Af 84 BUN/Creatinine Ratio 15.5 Glucose 303 H Calcium 9.0 Total Bilirubin 1.10 H AST 22 ALT 19 Alkaline Phosphatase 64 Troponin I High Sens 146 H* Total Protein 6.4 Albumin 3.5 Globulin 2.9 Albumin/Globulin Ratio 1.2 Radiography Diagnostic Testing: Clinical Impression(s) from Imaging Studies Chest X-Ray 01/08/22 15:35 IMPRESSION: CHF. Electronically Signed: Mario Lopez MD at 16:04 EDT , Chest x-ray read by me and radiologist reveals some cardiomegaly, no obvious EKG Initial EKG: Comments: Sinus rhythm with a rate of 104. Incomplete left bundle branch block. Some diffuse ST changes in the precordial leads, these are chronic. Normal MS interval. QTC is prolonged at 491. Interpreted by emergency doctor Discharge Plan Triage Chief Complaint: Chest Pain Other Complaint: Pacer/ICD ED Provider: Jimmy Pineda Dx/Rx/DC Orders Clinical Impression: Paroxysmal SVT (supraventricular tachycardia), Sciatica Prescriptions: No Action pregabalin [Lyrica] 100 mg capsule 100 mg PO QHS RF: 0 levothyroxine 75 MCG tablet 75 mcg PO DAILY RF: 0 Hold Instructions: Resume on 12/08/21. Repeat thyroid function test after 2 weeks duloxetine 60 MG capsule 60 mg PO DAILY RF: 0 vitamins A,C,I-rfec-uyxpof 1 EACH capsule 1 ea PO QHS RF: 0 cholecalciferol (vitamin D3) 50,000 UNIT capsule 50,000 unit PO MO RF: 0 donepezil [Aricept] 5 MG tablet 5 mg PO DAILY RF: 0 trazodone 50 MG tablet 50 mg PO QHS RF: 0 gabapentin [Neurontin] 100 MG capsule 100 mg PO QHS RF: 0 albuterol sulfate [ProAir HFA] 1 PUFF inhaler 2 puff inhalation TID PRN (Reason: Sob &/Or Wheezing) RF: 0 multivitamin with iron 1 EACH tablet 1 tab PO BID RF: 0 Systane Balance 10 ML drops 1 drp Right Eye BID RF: 0 melatonin 10 MG tablet 10 mg PO QHS RF: 0 aspirin 81 MG tablet 81 mg PO DAILY RF: 0 ferrous sulfate [FeroSul] 325 mg (65 mg iron) Tablet 325 mg PO QODAY@1200 Qty: 0 RF: 0 metoprolol tartrate 50 mg Tablet 50 mg PO BID Qty: 0 RF: 0 budesonide 0.5 mg/2 mL Suspension For Nebulization 0.5 mg inhalation BID.RT Qty: 0 RF: 0 insulin lispro [Humalog KwikPen Insulin] 100 unit/mL Insulin Pen See Protocol unit subcut ACHS Qty: 0 RF: 0 menthol-zinc oxide [Calmoseptine] 0.44-20.6 % Ointment 1 applic topical BID Qty: 0 RF: 0 pantoprazole [Protonix] 40 mg tablet,delayed release (DR/EC) 40 mg PO BID Qty: 60 RF: 0 amlodipine 5 MG tablet 5 mg PO DAILY Qty: 0 RF: 0 isosorbide mononitrate 120 MG tablet 60 mg PO DAILY Qty: 0 RF: 0 bumetanide 0.5 mg tablet 0.5 mg PO BIDCM Qty: 0 RF: 0 spironolactone 25 mg Tablet 25 mg PO DAILY Qty: 0 RF: 0 Glucerna 1.2 Tru 0.06-1.2 gram-kcal/mL Liquid 120 ml PO 4X/DAY Qty: 0 RF: 0 prednisone 20 mg Tablet 20 mg PO DAILY RF: 0 hydroxyzine pamoate [Vistaril] 25 mg Capsule 25 mg PO BID PRN (Reason: Anxiety) RF: 0 magnesium 200 mg Tablet 400 mg PO DAILY RF: 0 pregabalin [Lyrica] 50 mg Capsule 50 mg PO DAILY RF: 0 hydrocodone-acetaminophen 5-325 mg tablet 1 tab PO Q6H PRN (Reason: pain) 3 Days Qty: 10 RF: 0 amiodarone 200 mg tablet 200 mg PO BID Qty: 14 RF: 0 amiodarone 200 mg tablet 200 mg PO DAILY Qty: 30 RF: 0 Primary Care Provider: Roscoe Bradley Referrals: Roscoe Bradley MD [Primary Care Provider] - Disposition Disposition: Acute Care Hospital [facility]
[2022-01-08 15:55] LABS: ALB/GLOB Ratio 1.2 RATIO (0.9-2.4); AST(SGOT) 22 U/L (15-37); Alanine Aminotransfer ALT/SGPT 19 U/L (13-56); Albumin, Serum 3.5 g/dL (3.2-5.0); Alkaline Phosphatase 64 U/L (45-117); Anion Gap 8 (5-15); BUN 11 mg/dL (7-18); BUN/Creat Ratio 15.5 RATIO (10-20); Chloride 101 mmol/L (98-107); Creatinine, Serum 0.71 mg/dL (0.55-1.02); EST Glomerular Filtration Rate 84 mL/min (>60); Est Glom Filt Rate - Afr Amer 102 mL/min (>60); Estimated Creatinine Clearance 38.75 ml/min; Globulin 2.9 g/dL (2.2-4.2); Glucose 303 mg/dL (74-106); Potassium 3.4 mmol/L (3.5-5.1); Protein, Total 6.4 g/dL (6.4-8.2); Sodium Level 137 mmol/L (136-145); Troponin-I HS (w/2H Reflex) 146 pg/mL (3.0-54.0)
[2022-01-08] MEDS: Ondansetron 4 MG/2 ML Vial IV (16:17)
[2022-01-08] MEDS: Morphine 4 MG/ML Syringe IV (16:17)
--- NOTE | 2022-01-08 17:04 | HP.PCM.HOS_ITS ---
[facility] - General General Date of Admission: 01/08/22 HPI Narrative KATEY CROSS, is a 81 F with an extensive PMh as outlined who presents via the ED on 01/08/2022 with a compalitn of right hip pain. She was seen in the ED one day prior to admission with a complaint of chest pain and was noted to be having firing of her ICD. Cardiology was consulted from the ED, and she was placed on amiodarone after she was found to have ventricular tachycardia. She was discharged home but came in today because of chest pain and hip pain. Her hip pain was very severe and debilitating, precluding her from walking. She denied any shortness of breath, dizziness, lightheadedness or any trauma to her right leg. Review of systems was otherwise negative. Vitals in the ED at time of review were BP of 140/55, OK of 107, RR of 24 and she was saturating at 97% on 2L of oxygen. Per her family, patient does wear oxygen at home, but her concentrator had broken down, so her oxygen saturation had been dipping into the 80s. CBC showed Hb of 12.4, wbc of 13.1 and platelets of 155. Chemistry showed potassium of 3.4, but was otherwise WNL. Initial high sensitivity troponin was 146.EKG showed no acute ST changes. She is being admitted to be managed for chest pain to r/o ACS as well as debility due to right hip pain. [facility] Medical History Acute [place], inferoposterior wall, subsequent episode of care Anemia Angina pectoris Atherosclerotic heart disease of [place] coronary artery without angina pectoris Atrial fibrillation Blindness of both eyes Body mass index (bmi) 26.0-26.9, adult Breast cancer Cancer COPD (chronic obstructive pulmonary disease) Debility Diabetes mellitus Elevated troponin Essential hypertension Former smoker Hepatic insufficiency History of diabetes mellitus History of [place] (myocardial infarction) History of steroid therapy HLD (hyperlipidemia) HTN (hypertension) Hypothyroidism Implantable cardioverter-defibrillator (ICD) in situ Irregular heart beat Ischemic cardiomyopathy Monomorphic ventricular tachycardia Non-ST elevation (NSTEMI) myocardial infarction Nonalcoholic hepatosteatosis Nonrheumatic mitral valve regurgitation Nonrheumatic tricuspid (valve) insufficiency Old myocardial infarction Pacemaker Palpitations Paroxysmal a-fib Paroxysmal SVT (supraventricular tachycardia) Pre-syncope Presence of biventricular automatic cardioverter/defibrillator (AICD) Restless legs Right leg pain Shortness of breath Shortness of breath Syncope Ventricular tachyarrhythmia Ventricular tachycardia (paroxysmal) Wears hearing aid in both ears Home Medications duloxetine 60 mg PO DAILY 03/24/16 [History Last Taken 11/28/18] levothyroxine 25 mcg PO DAILY 03/24/16 [History Last Taken 11/28/18] cholecalciferol (vitamin D3) 50,000 unit PO MO 09/18/16 [History Last Taken 11/25/18] albuterol sulfate [ProAir HFA] 2 puff INHALATION TID PRN 10/11/18 [History Last Taken 11/26/18] donepezil [Aricept] 5 mg PO QHS 10/11/18 [History Last Taken 11/28/18] trazodone 50 mg PO QHS 10/11/18 [History Last Taken 11/27/18] aspirin 81 mg PO DAILY 11/28/18 [History Last Taken 11/28/18] amlodipine 5 mg PO DAILY #0 tab 11/25/21 [Rx Last Taken 11/28/18] budesonide 0.5 mg INHALATION BID.RT #0 ml 11/25/21 [Rx Last Taken Unknown] bumetanide 0.5 mg PO BIDCM #0 tab 11/25/21 [Rx Last Taken 11/28/18] isosorbide mononitrate 60 mg PO DAILY #0 tab 11/25/21 [Rx Last Taken 11/28/18] hydroxyzine pamoate [Vistaril] 25 mg PO BID PRN 12/16/21 [History Last Taken Unknown] magnesium 400 mg PO BID 12/16/21 [History Last Taken Unknown] pregabalin [Lyrica] 50 mg PO BID 12/16/21 [History Last Taken Unknown] amiodarone 200 mg PO BID 01/08/22 [History Last Taken Unknown] amiodarone 200 mg PO DAILY 01/08/22 [History Last Taken Unknown] fenofibrate 160 mg PO DAILY 01/08/22 [History Last Taken Unknown] ferrous sulfate [FeroSul] 325 mg PO TUTHFR 01/08/22 [History Last Taken Unknown] metoprolol tartrate 50 mg PO BID 01/08/22 [History Last Taken Unknown] pantoprazole [Protonix] 40 mg PO BID 01/08/22 [History Last Taken Unknown] pravastatin 40 mg PO QHS 01/08/22 [History Last Taken Unknown] spironolactone 25 mg PO DAILY 01/08/22 [History Last Taken Unknown] Allergy/AdvReac Type Severity Reaction Status Date / Time No Known Allergies Allergy Verified 01/07/22 22:25 Family History Son Asthma Father Cancer Mother Cancer Brother Cancer Surgical History Aortocoronary bypass status (~12/08/02) History of coronary artery stent placement History of mastectomy Postsurgical percutaneous transluminal coronary angioplasty (PTCA) status Presence of stent in coronary artery (~11/30/01) S/P implantation of automatic cardioverter/defibrillator (AICD) Social History household members: none Smoking Status: Former smoker alcohol intake: never substance use type: does not use ROS Constitutional Constitutional: Denies anorexia, chills, fatigue, fever(s) or malaise Eyes Eyes: Denies change in vision ENT HEENT: Denies dysphagia or headache(s) Cardiovascular Cardiovascular: Reports chest pain; Denies dyspnea on exertion, edema, lightheadedness, orthopnea, palpitations, rapid heart rate or syncope Respiratory/Chest Respiratory/Chest: Denies cough, dyspnea, hemoptysis, productive cough or shortness of breath at rest Gastrointestinal Gastrointestinal: Denies abdominal pain, constipation or diarrhea Genitourinary Genitourinary: Denies burning urination or dysuria Musculoskeletal Musculoskeletal: Reports joint pain; Denies arthralgias or back pain Neurologic Neurologic: Denies confusion, dizziness or focal weakness Psychiatric Psychiatric: Denies anxiety or depression Endocrine Endocrinology: Denies change in body appearance Vital Signs Vital Signs Vital Signs: 01/08/22 15:09 01/08/22 16:24 01/08/22 16:25 Temperature 99.6 F H Temperature Source Oral Pulse Rate 108 H 107 H Respiratory Rate 24 H 24 H Blood Pressure 137/78 H 140/55 H Blood Pressure Mean 97 83 Pulse Ox 93 88 97 Oxygen Delivery Method Room Air Room Air Nasal Cannula Oxygen Flow Rate (L/min) 2 Weight Weight: 128 lb 4.944 oz Body Mass Index (BMI) 21.9 Physical Exam Const alert, oriented x3 and no apparent distress General Appearance: cooperative HEENT normocephalic, head/scalp atraumatic and hearing grossly normal bilaterally Eyes PERRL, EOMs intact bilaterally and conjunctivae normal Neck no lymphadenopathy and supple Resp normal respiratory effort, no retractions, no use of accessory muscles and clear to auscultation bilaterally Resp Narrative: on 2L of oxygen by nasal canula Cardio regular rhythm, S1 normal heart sound, S2 normal heart sound and no murmurs Cardio Narrative: tachycardic GI normal to inspection, nondistended, normoactive bowel sounds, soft to palpation and non-tender Extremity normal to inspection Extremity Narrative: positive straight leg test of RLE Peripheral Pulses: Yes pulses 2+ throughout Skin no rashes or lesions noted Neuro CN's II-XII intact bilaterally Sensorium / Orientation: awake and alert Psych affect normal Results Lab / Micro Data Result Diagrams: 01/08/22 15:15 01/08/22 15:15 Labs: Laboratory Results - last 24 hr 01/08/22 15:15: WBC 13.1 H, RBC 3.39 L, Hgb 12.4, Hct 36.9 L, MCV 108.8 H, MCH 36.6 H, MCHC 33.6, RDW Std Deviation 55.6 H, RDW Coeff of Ella 13.9, Plt Count 155, MPV 12.3 H, Immature Gran % (Auto) 0.500, Neut % (Auto) 87.1 H, Lymph % (Auto) 5.7 L, [place] % (Auto) 5.5, Eos % (Auto) 0.8, Baso % (Auto) 0.4, Absolute Neuts (auto) 11.4 H, Absolute Lymphs (auto) 0.74 L, Nucleated RBC % 0 01/08/22 15:15: Sodium 137, Potassium 3.4 L, Chloride 101, Carbon Dioxide 28.0, Anion Gap 8, BUN 11, Creatinine 0.71, Estim Creat Clear Calc 38.75, Est GFR (MDRD) Af Amer 102, Est GFR (MDRD) Non-Af 84, BUN/Creatinine Ratio 15.5, Glucose 303 H, Calcium 9.0, Total Bilirubin 1.10 H, AST 22, ALT 19, Alkaline Phosphatase 64, Troponin I High Sens 146 H*, Total Protein 6.4, Albumin 3.5, Globulin 2.9, Albumin/Globulin Ratio 1.2 Radiology Impression Chest X-Ray 01/08/22 15:35 IMPRESSION: CHF. Electronically Signed: Mario Lopez MD at 16:04 EDT , Assessment & Plan Assessment/Plan (1) Acute right hip pain: (2) Chest pain: PLAN: #RIght hip pain * appears to be due to sciatica * she does have a history of right hip pain. * PT/OT consult * fall precautions * PO tylenol, PO oxycodone and IV morphine prn for pain * to get CT of the lumbar spine tomorrow if pain doesnt improve with PT.OT * cannot get an MRI due to ICD. * #Nstemi * initial high sensivitity troponin is 148 * will cycle troponins. * ws seen in November 2021 for nonstemi, and had 2D echo which showed EF of 25% with RV dysfunction and dilattaiton, as well as severe tricuspid valve insufficiencey and RVSP of 52mmhg * she didnt have any extensive cardiac workup then because code status was changed to DNRCC. Family was considering hospice care but subsequently changed their minds * I spoke to her son David Cross about her code status, and he wants her to have her nonstemi treated * will therefore consult cardiology. * give one dose of therapuetic lovenox * give high intensity statin * #HFreF: * not in exacerbation. On bumex and aldactone * has ICD in place; this was firing yesterday so she came in to [facility] ED and was started on amiodarone as per cardiology. #Ventricular tachycardia * presented to the ED yesterday with firing of her ICD. she was found to be in vtach * this was discussed with cardiology and she was started on amiodarone 200mg bid * continue amiodarone. * potassium is 3.4, will replace * check magnesium level * #COPD: not in exacerbation> on breathing treatment with bronchodilators #Hypertension * continue current BP meds- amlodipine and metoprolol * #Pulmonary hypertension; likely due to heart disease and COPD as well. #Hyperlipidemia: on statin #Hypothyroidism: on synthroid #TYpe 2 diabetes mellitus with neuropathy * on lyrica. * ISS. Accuchecks ACHS * #History of GI bleed: on PPI DVT prophylaxis; SCDs Code status: DNRCCA no intubation * I asked patient about her CODE STATUS but she wanted me to discuss it with her son David Cross * I called her son David Cross on the phone and discussed CODE STATUS with his mother. Her son said during a previous admission they had brought up the question of hospice but he would want his mother treated if there was a chance that she could still do well. He does know that she has a DO NOT RESUSCITATE order and so would not wanted to have CPR or intubation but would want all treatment otherwise. When counseled that this sounds like a DNR CCA no intubation, patient's son was agreeable and after being counseled about other CODE STATUS including full code, as well as DNRCC, he settled on his mother being DNR CCA. * CODE STATUS is therefore DNR CCA * Total [id number]-gb-keed time with patient and discussion with son about CODE STATUS-20 minutes. Charges/Coding Visit Charges Inpatient E&M: 18786 Init Hosp L3 Procedures Hospitalists Procedures: 63288 Advncd Care Plan 30 Min
[2022-01-08 17:23] LABS: Reflex Troponin-HS? (from REC) Y
[2022-01-08 17:35] LABS: BNP,B-Type NATRIURETIC PEPTIDE 1471.3 pg/mL (0-100)
[2022-01-08 18:32] LABS: Troponin-I HS 162 pg/mL (3.0-54.0)
[2022-01-08] MEDS: Glucerna Shake 120 ML LIQUID PO (19:02)
[2022-01-08] MEDS: Enoxaparin 60 MG/0.6 ML Syringe 50 MG SC (19:27)
[2022-01-08] MEDS: Budesonide Respules 0.5 MG/2 ML AMPUL.NEB. INHALATION (19:30)
[2022-01-08 21:29] LABS: Troponin-I HS 140 pg/mL (3.0-54.0)
[2022-01-08] MEDS: Amiodarone 200 MG Tablet PO (23:51)
[2022-01-08] MEDS: Donepezil HCl 5 MG Tablet PO (23:51)
[2022-01-08] MEDS: traZODone 50 MG Tablet PO (23:52)
[2022-01-08] MEDS: Metoprolol Tartrate 50 MG Tablet PO (23:53)
[2022-01-08] MEDS: Multivitamin (Healthy Eyes) Capsule 1 CAP PO (23:53)
[2022-01-09] VITALS (14 sets, daily range): BP systolic 96–129; BP diastolic 34–71; PULSE 67–94; RESP 16–18; TEMP 35.8–36.4; O2SAT 94–98
[2022-01-09] MEDS: Pravastatin 40 MG Tablet PO ×2 (00:02→22:50)
[2022-01-09] MEDS: 0.9% Saline Lock 10 ML Syringe IV ×2 (00:02→22:47)
[2022-01-09] MEDS: Pantoprazole Sodium 40 MG Tablet PO ×3 (00:02→22:51)
[2022-01-09 01:16] LABS: Bedside Glucose 149 mg/dL (74-106)
--- NOTE | 2022-01-09 02:58 | NURSING ---
Patient meds administered late due to medications not being verified. Patient unable to state meds. Son contacted and unaware of meds. Bubble packs of meds found in patient purse and pharmacy updated. Meds locked in med cabinet.
[2022-01-09 05:23] LABS: Absolute Lymphocyte Count 2.06 X10^3/uL (0.83-4.51); Absolute Neutrophil Count 6.2 X10^3/uL (2.0-7.7); Basophil# 0.07 X10^3/uL; Basophil% 0.7 % (0-1); Eosinophil# 0.48 X10^3/uL; Eosinophils% 4.9 % (0-5); Hematocrit 36.6 % (37-47); Hemoglobin 12.2 g/dL (12.0-15.0); Lymphocyte # 2.06 X10^3/ul (0.83-4.51); Lymphocyte % 21.2 % (19-41); Mean Corp Hgb Conc 33.3 g/dL (32-36); Mean Corpuscular Hgb 36.2 pg (27.0-32.0); Mean Corpuscular Volume 108.6 fL (81-99); Mean Platelet Vol. 12.8 fl (6.2-12.0); Monocyte# 0.84 X10^3/uL; Monocyte% 8.6 % (0-10); NRBC Flagged by Analyzer 0.2 % (0-5); Neutrophil # 6.24 X10^3/uL (2.7-7.7); Neutrophil % 64.3 % (47-70); Platelet Count 180 K/mm3 (150-450); RBC Distribution Width CV 13.5 % (11.6-14.6); RBC Distribution Width SD 54.4 fl (35.1-43.9); Red Blood Count 3.37 M/mm3 (4.2-5.4); White Blood Count 9.7 K/mm3 (4.4-11.0)
[2022-01-09] MEDS: Levothyroxine 75 MCG Tablet PO (05:31)
[2022-01-09 05:55] LABS: Anion Gap 4 (5-15); BUN 10 mg/dL (7-18); BUN/Creat Ratio 17.2 RATIO (10-20); Calcium,Total 9.6 mg/dL (8.5-10.1); Chloride 103 mmol/L (98-107); Creatinine, Serum 0.58 mg/dL (0.55-1.02); EST Glomerular Filtration Rate 106 mL/min (>60); Est Glom Filt Rate - Afr Amer 128 mL/min (>60); Estimated Creatinine Clearance 38.75 ml/min; Glucose 128 mg/dL (74-106); Potassium 3.9 mmol/L (3.5-5.1); Sodium Level 136 mmol/L (136-145)
[2022-01-09] MEDS: Budesonide Respules 0.5 MG/2 ML AMPUL.NEB. INHALATION ×2 (06:49→19:43)
[2022-01-09 06:55] LABS: Bedside Glucose 117 mg/dL (74-106)
--- NOTE | 2022-01-09 08:23 | PN.HOSP_ITS ---
Objective Data Objective Data Vital Signs: Vital Signs Temp Pulse Resp BP Pulse Ox 36.4 C L 79 16 109/60 95 01/09/22 05:25 01/09/22 07:00 01/09/22 05:25 01/09/22 05:25 01/09/22 05:25 Oxygen Flow Rate (L/min) 2 Oxygen Delivery Method Nasal Cannula Weight: 56.3 kg Body Mass Index (BMI) 21.3 Lab / Micro Data Result Diagrams: 01/09/22 04:15 01/09/22 04:15 Labs: Laboratory Results - last 24 hr 01/08/22 15:15: WBC 13.1 H, RBC 3.39 L, Hgb 12.4, Hct 36.9 L, MCV 108.8 H, MCH 36.6 H, MCHC 33.6, RDW Std Deviation 55.6 H, RDW Coeff of Ella 13.9, Plt Count 155, MPV 12.3 H, Immature Gran % (Auto) 0.500, Neut % (Auto) 87.1 H, Lymph % (Auto) 5.7 L, [place] % (Auto) 5.5, Eos % (Auto) 0.8, Baso % (Auto) 0.4, Absolute Neuts (auto) 11.4 H, Absolute Lymphs (auto) 0.74 L, Nucleated RBC % 0 01/08/22 15:15: Sodium 137, Potassium 3.4 L, Chloride 101, Carbon Dioxide 28.0, Anion Gap 8, BUN 11, Creatinine 0.71, Estim Creat Clear Calc 38.75, Est GFR (MDRD) Af Amer 102, Est GFR (MDRD) Non-Af 84, BUN/Creatinine Ratio 15.5, Glucose 303 H, Calcium 9.0, Total Bilirubin 1.10 H, AST 22, ALT 19, Alkaline Phosphatase 64, Troponin I High Sens 146 H*, Total Protein 6.4, Albumin 3.5, Globulin 2.9, Albumin/Globulin Ratio 1.2 01/08/22 15:15: B-Natriuretic Peptide 1471.3 H 01/08/22 17:36: Troponin I High Sens 162 H* 01/08/22 20:45: Troponin I High Sens 140 H* 01/09/22 00:09: POC Glucose 149 H 01/09/22 04:15: WBC 9.7, RBC 3.37 L, Hgb 12.2, Hct 36.6 L, MCV 108.6 H, MCH 36.2 H, MCHC 33.3, RDW Std Deviation 54.4 H, RDW Coeff of Ella 13.5, Plt Count 180, MPV 12.8 H, Immature Gran % (Auto) 0.300, Neut % (Auto) 64.3, Lymph % (Auto) 21.2, [place] % (Auto) 8.6, Eos % (Auto) 4.9, Baso % (Auto) 0.7, Absolute Neuts (auto) 6.2, Absolute Lymphs (auto) 2.06, Nucleated RBC % 0.2 01/09/22 04:15: Sodium 136, Potassium 3.9, Chloride 103, Carbon Dioxide 29.0, Anion Gap 4 L, BUN 10, Creatinine 0.58, Estim Creat Clear Calc 38.75, Est GFR (MDRD) Af Amer 128, Est GFR (MDRD) Non-Af 106, BUN/Creatinine Ratio 17.2, Glucose 128 H, Calcium 9.6 01/09/22 06:45: POC Glucose 117 H Radiography Diagnostic Testing: Radiology Impression Chest X-Ray 01/08/22 15:35 IMPRESSION: CHF. Electronically Signed: Mario Lopez MD at 16:04 EDT , Assessment & Plan Assessment/Plan (1) Acute right hip pain: (2) Chest pain: PLAN: 1. RIght hip pain * appears to be due to sciatica * she does have a history of right hip pain. * PT/OT consult * fall precautions * PO tylenol, PO oxycodone and IV morphine prn for pain * to get CT of the lumbar spine tomorrow if pain doesnt improve with PT.OT * cannot get an MRI due to ICD. 2. Nstemi * initial high sensivitity troponin is 148 * will cycle troponins. * ws seen in November 2021 for nonstemi, and had 2D echo which showed EF of 25% with RV dysfunction and dilattaiton, as well as severe tricuspid valve insufficiencey and RVSP of 52mmhg * she didnt have any extensive cardiac workup then because code status was stephen ged to DNRCC. Family was considering hospice care but subsequently changed their minds * I spoke to her son David Lomax about her code status, and he wants her to have her nonstemi treated * will therefore consult cardiology. * give one dose of therapuetic lovenox * give high intensity statin 3. HFreF: * not in exacerbation. On bumex and aldactone * has ICD in place; this was firing yesterday so she came in to [facility] ED and was started on amiodarone as per cardiology. 4. Ventricular tachycardia * presented to the ED yesterday with firing of her ICD. she was found to be in vtach * this was discussed with cardiology and she was started on amiodarone 200mg bid * continue amiodarone. * potassium is 3.4, will replace * check magnesium level 5. Chronic conditions: * COPD: not in exacerbation> on breathing treatment with bronchodilators * Hypertension: continue current BP meds- amlodipine and metoprolol * Pulmonary hypertension; likely due to heart disease and COPD as well. 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 ISS. Accuchecks ACHS * History of GI bleed: on PPI DVT prophylaxis; SCDs Code status: DNRCCA no intubation * CODE STATUS is therefore DNR CCA per discussion with previous provider. Will offically change today (01/09)
[2022-01-09] MEDS: Amiodarone 200 MG Tablet PO ×2 (09:45→22:50)
[2022-01-09] MEDS: Magnesium Chloride 64 MG Delay Rel.Tablet 128 MG PO (09:45)
[2022-01-09] MEDS: Aspirin E.C. 81 MG Tablet PO (09:46)
[2022-01-09] MEDS: Fenofibrate 145 MG Tablet PO (09:46)
[2022-01-09] MEDS: Multivitamins,Therapeutic Tablet 1 TABLET PO ×2 (09:46→17:14)
[2022-01-09] MEDS: DULoxetine Hcl 60 MG Capsule PO (09:46)
[2022-01-09] MEDS: Ergocalciferol 1.25 MG (50, 000 UNIT) Capsule PO (09:46)
[2022-01-09] MEDS: Isosorbide Mononitrate 60 MG Tablet PO (09:46)
[2022-01-09] MEDS: Bumetanide 0.5 MG Tablet PO ×2 (09:46→17:14)
[2022-01-09] MEDS: Metoprolol Tartrate 50 MG Tablet PO (09:47)
--- NOTE | 2022-01-09 10:45 | CON.PCM.CA_ITS ---
Assessment & Plan Assessment/Plan (1) Chest pain: QUALIFIERS: Chest pain type: unspecified Qualified Code(s): R07.9 - Chest pain, unspecified PLAN: Patient denies any chest pain at this time. When I asked her if she had chest pain on presentation she denied that as well. Her troponin elevation could be related to her ICD firing. It is already trending down. She does not need any further ischemic work-up at this time. (2) Ventricular tachycardia (paroxysmal): PLAN: Her telemetry does not reveal any long runs of nonsustained V. tach. She has been started on amiodarone. She appears to be stable on this at this time. We will sign off at this time. If we can be of any further assistance please let us know. Thank you much for letting us participate in the care of this patient. HPI Consult Data Date of Consult: 01/09/22 HPI Narrative HPI Narrative: KATEY CROSS, is a 81 F who presents with significant hip pain. It appears that she has been mainly admitted for the hip pain. About 1 day prior to presentation she had come to the emergency room because her AICD had fired. She has had the AICD for several years and this was the first time it had fired. Patient was found to have a potassium of 3.4. She was stable during her ER stay and was started on amiodarone. Patient was previously on amiodarone. There is documentation that patient apparently had chest pain during current presentation a day after her ICD firing. However she denies that to me. Her troponin went up to the 100s and has been trending down after that. Patient was seen by Dr. Rojas in the hospital recently. At that time she had A. fib with RVR and also had elevated troponin. It was felt that the elevated troponin was likely secondary to the elevated heart rate and also because patient was overall debilitated and of advanced age it was decided to treat her medically without any further coronary work-up. She has history of CAD and stents and bypass surgery in the past. However currently she denies any anginal symptoms. [facility] Medical History (Updated 01/09/22 @ 10:[address] Uriah Kessler MD) Acute MS, inferoposterior wall, subsequent episode of care Anemia Angina pectoris Atherosclerotic heart disease of [place] coronary artery without angina pectoris Atrial fibrillation Blindness of both eyes Body mass index (bmi) 26.0-26.9, adult Breast cancer Cancer COPD (chronic obstructive pulmonary disease) Debility Diabetes mellitus Elevated troponin Essential hypertension Former smoker Hepatic insufficiency History of diabetes mellitus History of MS (myocardial infarction) History of steroid therapy HLD (hyperlipidemia) HTN (hypertension) Hypothyroidism Implantable cardioverter-defibrillator (ICD) in situ Irregular heart beat Ischemic cardiomyopathy Monomorphic ventricular tachycardia Non-ST elevation (NSTEMI) myocardial infarction Nonalcoholic hepatosteatosis Nonrheumatic mitral valve regurgitation Nonrheumatic tricuspid (valve) insufficiency Old myocardial infarction Pacemaker Palpitations Paroxysmal a-fib Paroxysmal SVT (supraventricular tachycardia) Pre-syncope Presence of biventricular automatic cardioverter/defibrillator (AICD) Restless legs Right leg pain Shortness of breath Shortness of breath Syncope Ventricular tachyarrhythmia Ventricular tachycardia (paroxysmal) Wears hearing aid in both ears Home Medications duloxetine 60 mg PO DAILY 03/24/16 [History Last Taken 11/28/18] levothyroxine 25 mcg PO DAILY 03/24/16 [History Last Taken 11/28/18] cholecalciferol (vitamin D3) 50,000 unit PO MO 09/18/16 [History Last Taken 11/25/18] albuterol sulfate [ProAir HFA] 2 puff INHALATION TID PRN 10/11/18 [History Last Taken 11/26/18] donepezil [Aricept] 5 mg PO QHS 10/11/18 [History Last Taken 11/28/18] trazodone 50 mg PO QHS 10/11/18 [History Last Taken 11/27/18] aspirin 81 mg PO DAILY 11/28/18 [History Last Taken 11/28/18] amlodipine 5 mg PO DAILY #0 tab 11/25/21 [Rx Last Taken 11/28/18] budesonide 0.5 mg INHALATION BID.RT #0 ml 11/25/21 [Rx Last Taken Unknown] bumetanide 0.5 mg PO BIDCM #0 tab 11/25/21 [Rx Last Taken 11/28/18] isosorbide mononitrate 60 mg PO DAILY #0 tab 11/25/21 [Rx Last Taken 11/28/18] hydroxyzine pamoate [Vistaril] 25 mg PO BID PRN 12/16/21 [History Last Taken Unknown] magnesium 400 mg PO BID 12/16/21 [History Last Taken Unknown] pregabalin [Lyrica] 50 mg PO BID 12/16/21 [History Last Taken Unknown] amiodarone 200 mg PO BID 01/08/22 [History Last Taken Unknown] amiodarone 200 mg PO DAILY 01/08/22 [History Last Taken Unknown] fenofibrate 160 mg PO DAILY 01/08/22 [History Last Taken Unknown] ferrous sulfate [FeroSul] 325 mg PO TUTHFR 01/08/22 [History Last Taken Unknown] metoprolol tartrate 50 mg PO BID 01/08/22 [History Last Taken Unknown] pantoprazole [Protonix] 40 mg PO BID 01/08/22 [History Last Taken Unknown] pravastatin 40 mg PO QHS 01/08/22 [History Last Taken Unknown] spironolactone 25 mg PO DAILY 01/08/22 [History Last Taken Unknown] Allergy/AdvReac Type Severity Reaction Status Date / Time No Known Allergies Allergy Verified 01/07/22 22:25 Family History Son Asthma Father Cancer Mother Cancer Brother Cancer Surgical History Aortocoronary bypass status (~12/08/02) History of coronary artery stent placement History of mastectomy Postsurgical percutaneous transluminal coronary angioplasty (PTCA) status Presence of stent in coronary artery (~11/30/01) S/P implantation of automatic cardioverter/defibrillator (AICD) Social History household members: none Smoking Status: Former smoker alcohol intake: never substance use type: does not use Physical Exam Const no apparent distress Orientation / Consciousness: awake HEENT normocephalic Eyes no scleral icterus Resp normal respiratory effort Cardio regular rate Psych mental status grossly normal Risk Stratification Risk Stratification Applicable: No Charges/Coding Visit Charges Inpatient E&M: 87839 Init Hosp L2 Objective Data Vital Signs: Vital Signs Temp Pulse Resp BP Pulse Ox 97.6 F L 67 18 116/63 94 01/09/22 05:25 01/09/22 09:47 01/09/22 06:49 01/09/22 09:47 01/09/22 06:49 Oxygen Flow Rate (L/min) 2 Oxygen Delivery Method Nasal Cannula Weight: 124 lb 1.924 oz Body Mass Index (BMI) 21.3 Lab / Micro Data Result Diagrams: 01/09/22 04:15 01/09/22 04:15 Labs: Laboratory Results - last 24 hr 01/08/22 15:15: WBC 13.1 H, RBC 3.39 L, Hgb 12.4, Hct 36.9 L, MCV 108.8 H, MCH 36.6 H, MCHC 33.6, RDW Std Deviation 55.6 H, RDW Coeff of Ella 13.9, Plt Count 155, MPV 12.3 H, Immature Gran % (Auto) 0.500, Neut % (Auto) 87.1 H, Lymph % (Auto) 5.7 L, [place] % (Auto) 5.5, Eos % (Auto) 0.8, Baso % (Auto) 0.4, Absolute Neuts (auto) 11.4 H, Absolute Lymphs (auto) 0.74 L, Nucleated RBC % 0 01/08/22 15:15: Sodium 137, Potassium 3.4 L, Chloride 101, Carbon Dioxide 28.0, Anion Gap 8, BUN 11, Creatinine 0.71, Estim Creat Clear Calc 38.75, Est GFR (MDRD) Af Amer 102, Est GFR (MDRD) Non-Af 84, BUN/Creatinine Ratio 15.5, Glucose 303 H, Calcium 9.0, Total Bilirubin 1.10 H, AST 22, ALT 19, Alkaline Phosphatase 64, Troponin I High Sens 146 H*, Total Protein 6.4, Albumin 3.5, Globulin 2.9, Albumin/Globulin Ratio 1.2 01/08/22 15:15: B-Natriuretic Peptide 1471.3 H 01/08/22 17:36: Troponin I High Sens 162 H* 01/08/22 20:45: Troponin I High Sens 140 H* 01/09/22 00:09: POC Glucose 149 H 01/09/22 04:15: WBC 9.7, RBC 3.37 L, Hgb 12.2, Hct 36.6 L, MCV 108.6 H, MCH 36.2 H, MCHC 33.3, RDW Std Deviation 54.4 H, RDW Coeff of Ella 13.5, Plt Count 180, MPV 12.8 H, Immature Gran % (Auto) 0.300, Neut % (Auto) 64.3, Lymph % (Auto) 21.2, [place] % (Auto) 8.6, Eos % (Auto) 4.9, Baso % (Auto) 0.7, Absolute Neuts (auto) 6.2, Absolute Lymphs (auto) 2.06, Nucleated RBC % 0.2 01/09/22 04:15: Sodium 136, Potassium 3.9, Chloride 103, Carbon Dioxide 29.0, Anion Gap 4 L, BUN 10, Creatinine 0.58, Estim Creat Clear Calc 38.75, Est GFR (MDRD) Af Amer 128, Est GFR (MDRD) Non-Af 106, BUN/Creatinine Ratio 17.2, Glucose 128 H, Calcium 9.6 01/09/22 06:45: POC Glucose 117 H Cardiology Labs/Tests 01/08/22 15:15: WBC 13.1 H, RBC 3.39 L, Hgb 12.4, Hct 36.9 L, MCV 108.8 H, MCH 36.6 H, MCHC 33.6, Plt Count 155, MPV 12.3 H, Immature Gran % (Auto) 0.500, Neut % (Auto) 87.1 H, Lymph % (Auto) 5.7 L, [place] % (Auto) 5.5, Eos % (Auto) 0.8, Baso % (Auto) 0.4, Absolute Neuts (auto) 11.4 H, Nucleated RBC % 0 01/08/22 15:15: Sodium 137, Potassium 3.4 L, Chloride 101, Carbon Dioxide 28.0, Anion Gap 8, BUN 11, Creatinine 0.71, Est GFR (MDRD) Af Amer 102, Est GFR (MDRD) Non-Af 84, BUN/Creatinine Ratio 15.5, Glucose 303 H, Calcium 9.0, Total Bilirubin 1.10 H 01/08/22 15:15: B-Natriuretic Peptide 1471.3 H 01/09/22 04:15: WBC 9.7, RBC 3.37 L, Hgb 12.2, Hct 36.6 L, MCV 108.6 H, MCH 36.2 H, MCHC 33.3, Plt Count 180, MPV 12.8 H, Immature Gran % (Auto) 0.300, Neut % (Auto) 64.3, Lymph % (Auto) 21.2, [place] % (Auto) 8.6, Eos % (Auto) 4.9, Baso % (Auto) 0.7, Absolute Neuts (auto) 6.2, Nucleated RBC % 0.2 01/09/22 04:15: Sodium 136, Potassium 3.9, Chloride 103, Carbon Dioxide 29.0, Anion Gap 4 L, BUN 10, Creatinine 0.58, Est GFR (MDRD) Af Amer 128, Est GFR (MDRD) Non-Af 106, BUN/Creatinine Ratio 17.2, Glucose 128 H, Calcium 9.6 Rhythm: EKG: ECHO: Stress Test: Cardiac Cath: PCI: CT Surgery: Holter monitor: EPS: PPM: CXR: Chest CT Scan: Radiography Diagnostic Testing: Radiology Impression Chest X-Ray 01/08/22 15:35 IMPRESSION: CHF. Electronically Signed: Mario Lopez MD at 16:04 EDT ,
[2022-01-09] MEDS: Insulin Lispro 100 UNIT/ML INSULN.PEN SC ×3 (11:33→22:46)
[2022-01-09 11:41] LABS: Bedside Glucose 187 mg/dL (74-106)
--- NOTE | 2022-01-09 12:36 | PN.HOSP_ITS ---
Documented by User: Sherie Siddiqui NP, [employer] SERVICE SPECIALIST-C 01/09/22 13:03 Subjective Subjective Patient seen and examined. Denies chest pain, shortness of breath. Reports ongoing right hip pain which she states began about 1 week ago. She denies pain radiation down right leg. Denies lower back pain. Denies fall or injury. Objective Data Objective Data Vital Signs: Vital Signs Temp Pulse Resp BP Pulse Ox 97.4 F L 71 16 102/48 L 94 01/09/22 11:20 01/09/22 11:20 01/09/22 11:20 01/09/22 11:20 01/09/22 11:20 Oxygen Flow Rate (L/min) 2 Oxygen Delivery Method Nasal Cannula Weight: 124 lb 1.924 oz Body Mass Index (BMI) 21.3 Lab / Micro Data Result Diagrams: 01/09/22 04:15 01/09/22 04:15 Labs: Laboratory Results - last 24 hr 01/08/22 15:15: WBC 13.1 H, RBC 3.39 L, Hgb 12.4, Hct 36.9 L, MCV 108.8 H, MCH 36.6 H, MCHC 33.6, RDW Std Deviation 55.6 H, RDW Coeff of Ella 13.9, Plt Count 155, MPV 12.3 H, Immature Gran % (Auto) 0.500, Neut % (Auto) 87.1 H, Lymph % (Auto) 5.7 L, [place] % (Auto) 5.5, Eos % (Auto) 0.8, Baso % (Auto) 0.4, Absolute Neuts (auto) 11.4 H, Absolute Lymphs (auto) 0.74 L, Nucleated RBC % 0 01/08/22 15:15: Sodium 137, Potassium 3.4 L, Chloride 101, Carbon Dioxide 28.0, Anion Gap 8, BUN 11, Creatinine 0.71, Estim Creat Clear Calc 38.75, Est GFR (MDRD) Af Amer 102, Est GFR (MDRD) Non-Af 84, BUN/Creatinine Ratio 15.5, Glucose 303 H, Calcium 9.0, Total Bilirubin 1.10 H, AST 22, ALT 19, Alkaline Phosphatase 64, Troponin I High Sens 146 H*, Total Protein 6.4, Albumin 3.5, Globulin 2.9, Albumin/Globulin Ratio 1.2 01/08/22 15:15: B-Natriuretic Peptide 1471.3 H 01/08/22 17:36: Troponin I High Sens 162 H* 01/08/22 20:45: Troponin I High Sens 140 H* 01/09/22 00:09: POC Glucose 149 H 01/09/22 04:15: WBC 9.7, RBC 3.37 L, Hgb 12.2, Hct 36.6 L, MCV 108.6 H, MCH 36.2 H, MCHC 33.3, RDW Std Deviation 54.4 H, RDW Coeff of Ella 13.5, Plt Count 180, MPV 12.8 H, Immature Gran % (Auto) 0.300, Neut % (Auto) 64.3, Lymph % (Auto) 21.2, [place] % (Auto) 8.6, Eos % (Auto) 4.9, Baso % (Auto) 0.7, Absolute Neuts (auto) 6.2, Absolute Lymphs (auto) 2.06, Nucleated RBC % 0.2 01/09/22 04:15: Sodium 136, Potassium 3.9, Chloride 103, Carbon Dioxide 29.0, Anion Gap 4 L, BUN 10, Creatinine 0.58, Estim Creat Clear Calc 38.75, Est GFR (MDRD) Af Amer 128, Est GFR (MDRD) Non-Af 106, BUN/Creatinine Ratio 17.2, G lucose 128 H, Calcium 9.6 01/09/22 06:45: POC Glucose 117 H 01/09/22 11:25: POC Glucose 187 H Radiography Diagnostic Testing: Radiology Impression Chest X-Ray 01/08/22 15:35 IMPRESSION: CHF. Electronically Signed: Mario Lopez MD at 16:04 EDT , Physical Exam Const alert, oriented x3 and no apparent distress Orientation / Consciousness: awake, oriented to person, oriented to place and oriented to time HEENT normocephalic and moist oral mucous membranes Eyes PERRL, EOMs intact bilaterally and conjunctivae normal Neck no lymphadenopathy Resp normal respiratory effort and clear to auscultation bilaterally Cardio regular rate, regular rhythm and no murmurs Peripheral Pulses: pulses 2+ throughout GI normal to inspection, nondistended, normoactive bowel sounds, non-tender and n on-distended Extremity normal to inspection Skin no rashes or lesions noted Lesions: no lesions Rashes: no rashes Trauma: no lacerations or abrasions Neuro CN's II-XII intact bilaterally, no focal motor deficits, no sensory deficits noted and deep tendon reflexes 2+ bilaterally Psych mental status grossly normal and affect normal Assessment & Plan Assessment/Plan (1) Acute right hip pain: (2) Chest pain: QUALIFIERS: Chest pain type: unspecified Qualified Code(s): R07.9 - Chest pain, unspecified PLAN: 1. Paroxysmal ventricular tachycardia/PAF-cardiology following. AICD fired prior to admission. Initiated on amiodarone. Continue metoprolol. Check TSH, mag. 2. Intractable right hip pain-PT/OT. As needed pain regimen. Denies recent injury. Hip/pelvis x-ray with degenerative changes. No fracture or dislocation. Consider CT if no improvement. CM consult for DC planning. 3. Chest pain/abnormal troponin- likely due to arrhythmia. Per cardiology, no indication for further ischemic work-up at this time. 4. 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 Stable. Echocardiogram November 2021 with EF 25%, severe tricuspid valve insufficiency, RVSP 52 mmHg. Continue aspirin, statin, metoprolol, isosorbide. 5. Chronic COPD-no exacerbation. As needed albuterol aerosol. 6. Type 2 diabetes [id number] with sliding scale insulin. 7. Hypertension stable, continue current regimen-on amlodipine, metoprolol. 8. Hyperlipidemia-continue statin. 9. Hypothyroidism-continue Synthroid. 10. History of GI bleed-continue PPI. 11. Macular degeneration with chronic blindness 12. Dementia, unknown behavioral disturbance history DVT prophylaxis- Lovenox This patient was seen by JERED Malin under the supervision of Dr. Bhatt. Time spent examining patient, reviewing data and subsequent management of care: 14 minutes Documented by User: Dr. Yefri Bhatt, 01/09/22 14:59 Subjective Subjective Hip pain feels well. Objective Data Lab / Micro Data Result Diagrams: 01/09/22 04:15 01/09/22 04:15 Physical Exam Const alert and no apparent distress Resp normal respiratory effort, no retractions, no use of accessory muscles and clear to auscultation bilaterally Cardio regular rate, regular rhythm, S1 normal heart sound and S2 normal heart sound GI normal to inspection, nondistended, normoactive bowel sounds, soft to palpation, non-tender and non-distended Extremity normal to inspection Assessment & Plan Assessment/Plan (1) Ventricular tachycardia (paroxysmal): PLAN: Patient seen and examined independently. Data and vitals reviewed. I agree with the above note by the nurse practitioner. 1. RIght hip pain * appears to be due to sciatica * she does have a history of right hip pain. * PT/OT consult * fall precautions * PO tylenol, PO oxycodone and IV morphine prn for pain * to get CT of the lumbar spine tomorrow if pain doesnt improve with PT.OT * cannot get an MRI due to ICD. 2. Nstemi * initial high sensivitity troponin is 148 * will cycle troponins. * ws seen in November 2021 for nonstemi, and had 2D echo which showed EF of 25% with RV dysfunction and dilattaiton, as well as severe tricuspid valve insufficiencey and RVSP of 52mmhg * she didnt have any extensive cardiac workup then because code status was changed to DNRCC. Family was considering hospice care but subsequently changed their minds * I spoke to her son David Lomax about her code status, and he wants her to have her nonstemi treated * will therefore consult cardiology. * give one dose of therapuetic lovenox * give high intensity statin * Seen by cardiology. Follow-up troponin elevation due to firing of ICD. No additional cardiac work-up at this time. 3. HFreF: * not in exacerbation. On bumex and aldactone * has ICD in place; this was firing yesterday so she came in to [facility] ED and was started on amiodarone as per cardiology. 4. Ventricular tachycardia * presented to the ED yesterday with firing of her ICD. she was found to be in vtach * this was discussed with cardiology and she was started on amiodarone 200mg bid * continue amiodarone. * potassium is 3.4, will replace * check magnesium level 5. Chronic conditions: * COPD: not in exacerbation> on breathing treatment with bronchodilators * Hypertension: continue current BP meds- amlodipine and metoprolol * Pulmonary hypertension; likely due to heart disease and COPD as well. 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 ISS. Accuchecks ACHS * History of GI bleed: on PPI DVT prophylaxis; SCDs Code status: DNRCCA no intubation * CODE STATUS is therefore DNR CCA per discussion with previous provider. Will offically change today (01/09) Greater than 24 minutes of which was spent reviewing data, images, vitals and previous documentation. Charges/Coding Visit Charges Inpatient E&M: 62824 Subs Hosp L2
--- NOTE | 2022-01-09 13:40 | CASEMGMT ---
RN EHSAN assessment: Face to Face with patient for initial transition planning/care coordination assessment. RN CM introduced self and role at [facility], pt voices understanding and consents to assessment. Pt is lying in bed in no distress on 2L nc. Pt is A/Ox4 and answers questions appropriately but closes eyes and attempts to not answer questions at times. Care providers, pharmacy, and demographics verified. Presentation: Pt c/o CP/right hip pain-seen yesterday for same Admitting dx: Right hip pain, NSTEMI PCP: [facility] Specialists: Bob, cardio Preferred Pharmacy: [facility] Insurance: [facility] Prescription Benefit: Yes Living Will/HPOA: Pt has LW/HPOA and is aware that they are on file at [facility]. Pt's son, David Lomax, is HPOA. LNOK: David Lomax, son/HPOA Living Arrangements: Pt lives alone in 1 story apt with no steps and states has been having difficulty caring for self at home. Transportation: Pt states her aide drives or she uses [facility] van transport. Pt states neither she nor her son drive. DME/HHC: Pt has a walker and medical alert. Pt has CM, Poornima Ferrari, and has aide 8 hours/week thru [employer] and [employer] meals weekly. Pt has been to [facility] and [facility] in past. Pt also used to live at [facility]. Pt states concerns with going home at time of discharge and is agreeable to SNF. Pt provided with list of SNF providers including quality and resource use data and consistent with the pt's preferred geographic region, medical needs, and insurance network. This RN CM did read off list to pt as she states she is unable to read on own d/t vision problems. Pt then states for this RN CM to call son so that he can choose at this time. Call to son, David, and he chooses [facility] and [facility], in that order, stating he filed complaint against [facility] for last visit and that pt did not like [facility]. But son wants this RN CM to run his choices by pt prior to referral faxed. This RN CM back to room and pt states she does not want [facility] and then states she would like [facility]. Call to son to update, voices understanding. Ramos DEAL aware, voices understanding. Pt Goal: Home Plan: SNF for rehab Ivet TAVERAS CM
[2022-01-09 13:46] LABS: Magnesium 1.5 mg/dL (1.6-2.6); T4 Free Direct 1.42 ng/dL (0.76-1.46); Thyroid Stim Hormone (TSH) 1.34 uIU/mL (0.358-3.74)
--- NOTE | 2022-01-09 14:11 | CASEMGMT ---
Per RN CM patient would like [facility]. TOYIN called [place] with [facility] and left her a voice mail regarding referral. TOYIN also faxed referral. Await response. Sadaf GRANT
--- NOTE | 2022-01-09 14:18 | CASEMGMT ---
TOYIN received a call from Kerrie at [facility]. She is covering for [place]. Kerrie will look over the referral and get back to . Sadaf Bright MSW JUANITA
[2022-01-09] MEDS: Glucerna Shake 120 ML LIQUID PO ×2 (14:20→22:54)
--- NOTE | 2022-01-09 14:51 | CASEMGMT ---
DARCY MOSER received call from Mckayla Craft CM at [facility] that follows this patient. Mckayla's contact number is [phone]. Per Mckayla, patient has home health services. DARCY MOSER updated Mckayla MOSER regarding admission and discharge plan. DARCY MOSER updated TOYIN Bright regarding call.
--- NOTE | 2022-01-09 15:27 | CASEMGMT ---
TOYIN received a return call from Kerrie at [facility]. They are not willing to take patient as she was not happy with her care the last time she was there. SW spoke with patient and went over options. Patient didn't want to commit to any place. She was okay with TOYIN talking with her son. TOYIN called patient's son David and told him above. He said [facility] or [facility] would be fine. TOYIN faxed referrals to both facilities. TOYIN called Porsche at [facility] and e-mailed Cierra at [facility]. Await responses. Sadaf Bright COMMUTER TRAIN OPERATOR JUANITA
[2022-01-09] MEDS: Magnesium Sulfate 4gm/100mL 4 GM/100 ML IV.SOLN. IV (17:01)
[2022-01-09] MEDS: Morphine 2 MG/ML Syringe IV ×2 (17:11→22:47)
[2022-01-09 17:35] LABS: Bedside Glucose 193 mg/dL (74-106)
[2022-01-09] MEDS: Glycerin/Hypromellose/PEG400 15 ml Bottle 1 DRP EACH EYE (22:48)
[2022-01-09] MEDS: Potassium Chloride Oral Tablet 10 MEQ PO (22:48)
[2022-01-09] MEDS: Multivitamin (Healthy Eyes) Capsule 1 CAP PO (22:49)
[2022-01-09] MEDS: Donepezil HCl 5 MG Tablet PO (22:50)
[2022-01-09] MEDS: MELATONIN 10 MG TABLET PO ×2 (22:50)
[2022-01-09] MEDS: traZODone 50 MG Tablet PO (22:51)
[2022-01-09 23:21] LABS: Bedside Glucose 171 mg/dL (74-106)
[2022-01-10] VITALS (14 sets, daily range): BP systolic 98–105; BP diastolic 39–74; PULSE 68–80; RESP 14–18; TEMP 36.2–36.6; O2SAT 89–99
[2022-01-10] MEDS: Enoxaparin 40 MG/0.4 ML Syringe SC (05:29)
[2022-01-10] MEDS: Levothyroxine 75 MCG Tablet PO (05:29)
[2022-01-10 06:44] LABS: Absolute Lymphocyte Count 1.16 X10^3/uL (0.83-4.51); Absolute Neutrophil Count 4.4 X10^3/uL (2.0-7.7); Basophil# 0.05 X10^3/uL; Basophil% 0.8 % (0-1); Eosinophil# 0.37 X10^3/uL; Eosinophils% 5.7 % (0-5); Hematocrit 31.5 % (37-47); Hemoglobin 10.7 g/dL (12.0-15.0); Lymphocyte # 1.16 X10^3/ul (0.83-4.51); Lymphocyte % 17.7 % (19-41); Mean Corpuscular Hgb 36.1 pg (27.0-32.0); Mean Corpuscular Volume 106.4 fL (81-99); Mean Platelet Vol. 12.2 fl (6.2-12.0); Monocyte# 0.53 X10^3/uL; Monocyte% 8.1 % (0-10); NRBC Flagged by Analyzer 0.3 % (0-5); Neutrophil % 67.2 % (47-70); Platelet Count 143 K/mm3 (150-450); RBC Distribution Width CV 13.4 % (11.6-14.6); RBC Distribution Width SD 52.1 fl (35.1-43.9); Red Blood Count 2.96 M/mm3 (4.2-5.4); White Blood Count 6.5 K/mm3 (4.4-11.0)
[2022-01-10 06:50] LABS: Bedside Glucose 133 mg/dL (74-106)
[2022-01-10 07:06] LABS: Anion Gap 5 (5-15); BUN 15 mg/dL (7-18); BUN/Creat Ratio 22.7 RATIO (10-20); Calcium,Total 8.5 mg/dL (8.5-10.1); Chloride 102 mmol/L (98-107); Creatinine, Serum 0.66 mg/dL (0.55-1.02); EST Glomerular Filtration Rate 91 mL/min (>60); Est Glom Filt Rate - Afr Amer 111 mL/min (>60); Estimated Creatinine Clearance 38.75 ml/min; Glucose 162 mg/dL (74-106); Potassium 3.3 mmol/L (3.5-5.1); Sodium Level 139 mmol/L (136-145)
[2022-01-10] MEDS: Bumetanide 0.5 MG Tablet PO ×2 (08:17→16:30)
[2022-01-10] MEDS: Aspirin E.C. 81 MG Tablet PO (08:18)
[2022-01-10] MEDS: Ferrous Sulfate 325 MG Tablet PO (08:20)
[2022-01-10] MEDS: Multivitamins,Therapeutic Tablet 1 TABLET PO ×2 (08:20→16:30)
[2022-01-10] MEDS: Magnesium Chloride 64 MG Delay Rel.Tablet 128 MG PO (09:15)
[2022-01-10] MEDS: Isosorbide Mononitrate 60 MG Tablet PO (09:15)
[2022-01-10] MEDS: DULoxetine Hcl 60 MG Capsule PO (09:16)
[2022-01-10] MEDS: Fenofibrate 145 MG Tablet PO (09:16)
[2022-01-10] MEDS: Metoprolol Tartrate 50 MG Tablet PO ×2 (09:16→21:55)
[2022-01-10] MEDS: Pantoprazole Sodium 40 MG Tablet PO ×2 (09:16→21:55)
[2022-01-10] MEDS: Amiodarone 200 MG Tablet PO ×2 (09:16→21:55)
--- NOTE | 2022-01-10 09:46 | CASEMGMT ---
TOYIN received a call from Porsche at [facility]. They can accept patient. TOYIN told her SW is waiting on [facility] to give their answer and then SW will get back to her. [facility] did not get the referral yesterday so TOYIN re-faxed it this am around [phone]. Await response. Sadaf Bright EMBOSSER APPRENTICE JUANITA
--- NOTE | 2022-01-10 10:37 | CASEMGMT ---
Both [facility] and [facility] can accept patient. TOYIN went to patient's room and let her know about both facilities. Patient needed some assistance in choosing. TOYIN went over Medicare ratings with patient. She was in agreement with [facility]. TOYIN called Porsche at [facility] and asked that she start the pre-cert. TOYIN also notified Cierra at [facility] that patient chose another facility. TOYIN called patient's son, David and let him know above. He asked if he could have a medical update. TOYIN told him TOYIN will pass along a message to the RN or BUNG DRIVER. He thanked TOYIN. Plan: [facility] pending insurance approval. Sadaf Bright BODY SHOP ESTIMATORJosé Miguel GRANT
[2022-01-10] MEDS: Insulin Lispro 100 UNIT/ML INSULN.PEN SC ×3 (11:24→21:56)
--- NOTE | 2022-01-10 11:25 | CASEMGMT ---
TOYIN called patient's case management director, Mckayla and left her a voice mail letting her know the d/c plan is [facility] pending insurance approval. Sadaf Bright VOCAL ARTISTJosé Miguel GRANT
[2022-01-10 11:30] LABS: Bedside Glucose 164 mg/dL (74-106)
--- NOTE | 2022-01-10 12:22 | PN.HOSP_ITS ---
Documented by User: Sherie Siddiqui NP, MODELING ANALYST-C 01/10/22 12:33 Subjective Subjective Patient seen and examined. Denies chest pain, shortness of breath. Reports ongoing right hip pain with movement. Denies pain at rest. Objective Data Objective Data Vital Signs: Vital Signs Temp Pulse Resp BP Pulse Ox 97.9 F 72 18 102/74 89 01/10/22 09:14 01/10/22 09:16 01/10/22 09:14 01/10/22 09:14 01/10/22 09:18 Oxygen Flow Rate (L/min) 2 Oxygen Delivery Method Room Air Weight: 124 lb 1.924 oz Body Mass Index (BMI) 21.3 Intake & Output: Intake and Output for Last 24 Hours 01/08/22 01/09/22 01/10/22 23:59 23:59 23:59 Intake Total 820 / 820 Output Total 550 / 550 Balance 820 / 470 -550 / -550 Lab / Micro Data Result Diagrams: 01/10/22 06:32 01/10/22 06:32 Labs: Laboratory Results - last 24 hr 01/09/22 04:15: Magnesium 1.5 L, TSH 1.34, Free T4 1.42 01/09/22 17:24: POC Glucose 193 H 01/09/22 22:45: POC Glucose 171 H 01/10/22 05:34: POC Glucose 133 H 01/10/22 06:32: WBC 6.5, RBC 2.96 L, Hgb 10.7 L, Hct 31.5 L, MCV 106.4 H, MCH 36.1 H, MCHC 34.0, RDW Std Deviation 52.1 H, RDW Coeff of Ella 13.4, Plt Count 143 L, MPV 12.2 H, Immature Gran % (Auto) 0.500, Neut % (Auto) 67.2, Lymph % (Auto) 17.7 L, [place] % (Auto) 8.1, Eos % (Auto) 5.7 H, Baso % (Auto) 0.8, Absolute Neuts (auto) 4.4, Absolute Lymphs (auto) 1.16, Nucleated RBC % 0.3 01/10/22 06:32: Sodium 139, Potassium 3.3 L, Chloride 102, Carbon Dioxide 32.0, Anion Gap 5, BUN 15, Creatinine 0.66, Estim Creat Clear Calc 38.75, Est GFR (MDRD) Af Amer 111, Est GFR (MDRD) Non-Af 91, BUN/Creatinine Ratio 22.7 H, Glucose 162 H, Calcium 8.5 01/10/22 11:23: POC Glucose 164 H Physical Exam Const alert, oriented x3 and no apparent distress Orientation / Consciousness: awake, oriented to person, oriented to place and oriented to time HEENT normocephalic and moist oral mucous membranes Eyes PERRL, EOMs intact bilaterally and conjunctivae normal Neck no lymphadenopathy Resp normal respiratory effort and clear to auscultation bilaterally Cardio regular rate, regular rhythm and no murmurs Peripheral Pulses: pulses 2+ throughout GI normal to inspection, nondistended, normoactive bowel sounds, non-tender and non-distended Extremity normal to inspection Skin no rashes or lesions noted Lesions: no lesions Rashes: no rashes Trauma: no lacerations or abrasions Neuro CN's II-XII intact bilaterally, no focal motor deficits, no sensory deficits noted and deep tendon reflexes 2+ bilaterally Psych mental status grossly normal and affect normal Assessment & Plan Assessment/Plan (1) Chest pain: QUALIFIERS: Chest pain type: unspecified Qualified Code(s): R07.9 - Chest pain, unspecified (2) Acute right hip pain: (3) AICD discharge: PLAN: 1. Paroxysmal ventricular tachycardia/PAF-cardiology following. AICD fired prior to admission. Initiated on amiodarone. Continue metoprolol. Magnesium mildly low, replaced. TSH normal. 2. Intractable right hip pain-PT/OT. As needed pain regimen. Denies recent injury. Hip/pelvis x-ray with degenerative changes. No fracture or dislo cation. Continue outpatient follow-up with pain management. Patient states she recently had back injection by pain management in November 2021. 3. Chest pain/abnormal troponin- likely due to arrhythmia. Per cardiology, no indication for further ischemic work-up at this time. 4. Chronic heart failure with reduced ejection fraction secondary to ischemic cardiomyopathy/CAD with history of stents/bypass-on Bumex, Aldactone. Stable. Echocardiogram November 2021 with EF 25%, severe tricuspid valve insufficiency, RVSP 52 mmHg. Continue aspirin, statin, metoprolol, isosorbide. 5. Chronic COPD-no exacerbation. As needed albuterol aerosol. 6. Type 2 diabetes [id number] with sliding scale insulin. 7. Hypertension stable, continue current regimen-on amlodipine, metoprolol. 8. Hyperlipidemia-continue statin. 9. Hypothyroidism-continue Synthroid. TSH/T4 normal. 10. History of GI bleed-continue PPI. 11. Macular degeneration with chronic blindness 12. Dementia, unknown behavioral disturbance history-continue donepezil. DVT prophylaxis- Lovenox This patient was seen by JERED Malin under the supervision of Dr. Bhatt. Time spent examining patient, reviewing data and subsequent management of care: 12 minutes Documented by User: Dr. Yefri Bhatt, DO 01/10/22 15:15 Subjective Subjective Feels ok. Pain down right leg when she gets up. Recently had an epidural injection into her back, but it did not help her. Objective Data Lab / Micro Data Result Diagrams: 01/10/22 06:32 01/10/22 06:32 Physical Exam Const alert and no apparent distress Resp normal respiratory effort, no retractions, no use of accessory muscles and clear to auscultation bilaterally Cardio regular rate, regular rhythm, S1 normal heart sound and S2 normal heart sound GI normal to inspection, nondistended, normoactive bowel sounds, soft to palpation, non-tender and non-distended Assessment & Plan Assessment/Plan (1) Chest pain: QUALIFIERS: Chest pain type: unspecified Qualified Code(s): R07.9 - Chest pain, unspecified (2) Acute right hip pain: PLAN: Patient seen and examined independently. Data and vitals reviewed. I agree with the above note by the nurse practitioner. 1. RIght hip pain chronic appears to be due to sciatica she does have a history of right hip pain. PT/OT consult fall precautions PO tylenol, PO oxycodone and IV morphine prn for pain cannot get an MRI due to ICD. 2. Nstemi initial high sensivitity troponin is 148 will cycle troponins. ws seen in November 2021 for nonstemi, and had 2D echo which showed EF of 25% with RV dysfunction and dilattaiton, as well as severe tricuspid valve insufficiencey and RVSP of 52mmhg she didnt have any extensive cardiac workup then because code status was changed to DNRCC. Family was considering hospice care but subsequently changed their minds I spoke to her son David Lomax about her code status, and he wants her to have her nonstemi treated will therefore consult cardiology. give one dose of therapuetic lovenox give high intensity statin Seen by cardiology. Follow-up troponin elevation due to firing of ICD. No additional cardiac work-up at this time. 3. HFreF: not in exacerbation. On bumex and aldactone has ICD in place; this was firing yesterday so she came in to [facility] ED and was started on amiodarone as per cardiology. 4. Ventricular tachycardia presented to the ED yesterday with firing of her ICD. she was found to be in vtach this was discussed with cardiology and she was started on amiodarone 200mg bid continue amiodarone. potassium is 3.4, will replace check magnesium level 5. Chronic conditions: COPD: not in exacerbation> on breathing treatment with bronchodilators Hypertension: continue current BP meds- amlodipine and metoprolol Pulmonary hypertension; likely due to heart disease and COPD as well. 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 ISS. Accuchecks ACHS History of GI bleed: on PPI DVT prophylaxis; SCDs Code status: DNRCCA no intubation CODE STATUS is therefore DNR CCA per discussion with previous provider. Will offically change today (01/09) Greater than 24 minutes of which was spent reviewing data, images, vitals and previous documentation. Charges/Coding Visit Charges Inpatient E&M: 04712 Subs Hosp L2
[2022-01-10] MEDS: Potassium Chloride Oral Tablet 20 MEQ 40 MEQ PO (12:43)
--- NOTE | 2022-01-10 13:24 | CASEMGMT ---
Call from Kristin Christina at [facility] and she states pt was active with them for SN, PT/OT. She is updated that pt's plan is for SNF at discharge, voices understanding. [facility] contact info: [phone], fax: [phone]. Ivet TAVERAS CM
[2022-01-10] MEDS: Acetaminophen 500 MG Tablet 1000 MG PO ×2 (14:53→21:55)
[2022-01-10 16:41] LABS: Bedside Glucose 179 mg/dL (74-106)
[2022-01-10] MEDS: Budesonide Respules 0.5 MG/2 ML AMPUL.NEB. INHALATION (19:22)
[2022-01-10] MEDS: oxyCODONE 5 MG Tablet 10 MG PO (19:59)
[2022-01-10] MEDS: Glycerin/Hypromellose/PEG400 15 ml Bottle 1 DRP EACH EYE (21:55)
[2022-01-10] MEDS: Multivitamin (Healthy Eyes) Capsule 1 CAP PO (21:55)
[2022-01-10] MEDS: Donepezil HCl 5 MG Tablet PO (21:55)
[2022-01-10] MEDS: Pravastatin 40 MG Tablet PO (21:55)
[2022-01-10] MEDS: traZODone 50 MG Tablet PO (21:55)
[2022-01-10] MEDS: MELATONIN 10 MG TABLET PO (21:55)
[2022-01-10] MEDS: Glucerna Shake 120 ML LIQUID PO (21:56)
[2022-01-10 22:10] LABS: Bedside Glucose 163 mg/dL (74-106)
[2022-01-11] VITALS (14 sets, daily range): BP systolic 95–130; BP diastolic 48–75; PULSE 64–76; RESP 16–18; TEMP 35.9–36.6; O2SAT 92–100
[2022-01-11] MEDS: oxyCODONE 5 MG Tablet 10 MG PO ×3 (03:20→16:47)
[2022-01-11] MEDS: Acetaminophen 500 MG Tablet 1000 MG PO ×2 (05:51→14:37)
[2022-01-11] MEDS: Enoxaparin 40 MG/0.4 ML Syringe SC (05:51)
[2022-01-11] MEDS: Levothyroxine 75 MCG Tablet PO (05:51)
[2022-01-11 06:47] LABS: Anion Gap 7 (5-15); BUN 23 mg/dL (7-18); BUN/Creat Ratio 29.4 RATIO (10-20); Calcium,Total 8.8 mg/dL (8.5-10.1); Chloride 102 mmol/L (98-107); Creatinine, Serum 0.78 mg/dL (0.55-1.02); EST Glomerular Filtration Rate 75 mL/min (>60); Est Glom Filt Rate - Afr Amer 91 mL/min (>60); Estimated Creatinine Clearance 38.75 ml/min; Glucose 131 mg/dL (74-106); Potassium 4.4 mmol/L (3.5-5.1); Sodium Level 136 mmol/L (136-145)
[2022-01-11 06:56] LABS: Bedside Glucose 130 mg/dL (74-106)
[2022-01-11] MEDS: Budesonide Respules 0.5 MG/2 ML AMPUL.NEB. INHALATION (07:56)
[2022-01-11] MEDS: Aspirin E.C. 81 MG Tablet PO (08:37)
[2022-01-11] MEDS: Magnesium Chloride 64 MG Delay Rel.Tablet 128 MG PO (08:37)
[2022-01-11] MEDS: Bumetanide 0.5 MG Tablet PO ×2 (08:37→16:41)
[2022-01-11] MEDS: Pantoprazole Sodium 40 MG Tablet PO (08:37)
[2022-01-11] MEDS: Amiodarone 200 MG Tablet PO (08:37)
[2022-01-11] MEDS: Multivitamins,Therapeutic Tablet 1 TABLET PO ×2 (08:37→16:42)
[2022-01-11] MEDS: Fenofibrate 145 MG Tablet PO (08:38)
[2022-01-11] MEDS: DULoxetine Hcl 60 MG Capsule PO (08:38)
--- NOTE | 2022-01-11 09:04 | BH.SGPN.T2 ---
Behaviors/Verbalizations/Mental Status: [] Client Response/Progress/Benefit: [] Narrative Note: []Pt complains that 02 is making her nares itch. Refusing to keep cannula in. does not want a mask. Says she should wear it at home but hates the way it feels in her nares.
--- NOTE | 2022-01-11 11:03 | PN.HOSP_ITS ---
Documented by User: Sherie Siddiqui NP, GERENTOLOGICAL PHYSIOTHERAPIST-C 01/11/22 11:14 Subjective Subjective Patient seen and examined. Sitting in chair, appears comfortable. Denies new symptoms or complaints. Hip pain tolerable, reports worse with walking. Objective Data Objective Data Vital Signs: Vital Signs Temp Pulse Resp BP Pulse Ox 97.8 F 65 18 102/60 94 01/11/22 08:19 01/11/22 08:19 01/11/22 08:19 01/11/22 08:19 01/11/22 08:19 Oxygen Flow Rate (L/min) 1 Oxygen Delivery Method Nasal Cannula Weight: 124 lb 1.924 oz Body Mass Index (BMI) 21.3 Intake & Output: Intake and Output for Last 24 Hours 01/09/22 01/10/22 01/11/22 23:59 23:59 23:59 Intake Total 820 / 820 1040 / 1280 300 / 300 Output Total 550 / 600 50 / 50 Balance 820 / 470 490 / 680 250 / 250 Lab / Micro Data Result Diagrams: 01/10/22 06:32 01/11/22 05:25 Labs: Laboratory Results - last 24 hr 01/10/22 11:23: POC Glucose 164 H 01/10/22 16:28: POC Glucose 179 H 01/10/22 21:54: POC Glucose 163 H 01/11/22 05:25: Sodium 136, Potassium 4.4, Chloride 102, Carbon Dioxide 27.0, Anion Gap 7, BUN 23 H, Creatinine 0.78, Estim Creat Clear Calc 38.75, Est GFR (MDRD) Af Amer 91, Est GFR (MDRD) Non-Af 75, BUN/Creatinine Ratio 29.4 H, Glucose 131 H, Calcium 8.8 01/11/22 06:48: POC Glucose 130 H Physical Exam Const alert, oriented x3 and no apparent distress Orientation / Consciousness: awake, oriented to person, oriented to place and oriented to time HEENT normocephalic and moist oral mucous membranes Eyes PERRL, EOMs intact bilaterally and conjunctivae normal Neck no lymphadenopathy Resp normal respiratory effort and clear to auscultation bilaterally Cardio regular rate, regular rhythm and no murmurs Peripheral Pulses: pulses 2+ throughout GI normal to inspection, nondistended, normoactive bowel sounds, non-tender and non -distended Extremity normal to inspection Skin no rashes or lesions noted Lesions: no lesions Rashes: no rashes Trauma: no lacerations or abrasions Neuro CN's II-XII intact bilaterally, no focal motor deficits, no sensory deficits noted and deep tendon reflexes 2+ bilaterally Psych mental status grossly normal and affect normal Assessment & Plan Assessment/Plan (1) AICD discharge: (2) Acute right hip pain: PLAN: 1. Paroxysmal ventricular tachycardia/PAF-cardiology following. AICD fired prior to admission. Initiated on amiodarone. Continue metoprolol. Magnesium mildly low, replaced. TSH normal. 2. Intractable right hip pain-PT/OT. As needed pain regimen. Denies recent injury. Hip/pelvis x-ray with degenerative changes. No fracture or dislocation. Continue outpatient follow-up with pain management. Patient states she recently had back injection by pain management in November 2021. 3. Chest pain/abnormal troponin- likely due to arrhythmia. Per cardiology, no indication for further ischemic work-up at this time. 4. Chronic heart failure with reduced ejection fraction secondary to ischemic cardiomyopathy/CAD with history of stents/bypass-on Bumex, Aldactone. Stable. Echocardiogram November 2021 with EF 25%, severe tricuspid valve insufficiency, RVSP 52 mmHg. Continue aspirin, statin, metoprolol, isosorbide. 5. Chronic COPD-no exacerbation. As needed albuterol aerosol. 6. Type 2 diabetes ceaybmxq-Fzjh-Akfik with sliding scale insulin. 7. Hypertension stable, continue current regimen-on amlodipine, metoprolol. 8. Hyperlipidemia-continue statin. 9. Hypothyroidism-continue Synthroid. TSH/T4 normal. 10. History of GI bleed-continue PPI. 11. Macular degeneration with chronic blindness 12. Dementia, unknown behavioral disturbance history-continue donepezil. DVT prophylaxis- Lovenox This patient was seen by JERED Malin under the supervision of Dr. Bhatt. Discharge planning: awaiting acceptance to [facility] Time spent examining patient, reviewing data and subsequent management of care: 10 minutes Documented by User: Dr. Yefri Bhatt, 01/11/22 12:54 Subjective Subjective Still with pain right hip and leg. Objective Data Lab / Micro Data Result Diagrams: 01/10/22 06:32 01/11/22 05:25 Physical Exam Const alert and no apparent distress Resp normal respiratory effort, no retractions and no use of accessory muscles Cardio regular rate, regular rhythm, S1 normal heart sound and S2 normal heart sound GI normal to inspection, nondistended, normoactive bowel sounds, soft to palpation, non-tender and non-distended Assessment & Plan Assessment/Plan (1) Ventricular tachycardia (paroxysmal): PLAN: Patient seen and examined independently. Data and vitals reviewed. I agree with the above note by the nurse practitioner. 1. RIght hip pain chronic appears to be due to sciatica she does have a history of right hip pain. PT/OT consult fall precautions PO tylenol, PO oxycodone and IV morphine prn for pain cannot get an MRI due to ICD. start lidoderm patch 2. Nstemi initial high sensivitity troponin is 148 will cycle troponins. ws seen in November 2021 for nonstemi, and had 2D echo which showed EF of 25% with RV dysfunction and dilattaiton, as well as severe tricuspid valve insufficiencey and RVSP of 52mmhg she didnt have any extensive cardiac workup then because code status was changed to DNRCC. Family was considering hospice care but subsequently changed their minds I spoke to her son David Lomax about her code status, and he wants her to have her nonstemi treated will therefore consult cardiology. give one dose of therapuetic lovenox give high intensity statin Seen by cardiology. Follow-up troponin elevation due to firing of ICD. No additional cardiac work-up at this time. 3. HFreF: not in exacerbation. On bumex and aldactone has ICD in place; this was firing yesterday so she came in to [facility] ED and was started on amiodarone as per cardiology. 4. Ventricular tachycardia presented to the ED yesterday with firing of her ICD. she was found to be in vtach this was discussed with cardiology and she was started on amiodarone 200mg bid continue amiodarone. potassium is 3.4, will replace check magnesium level 5. Chronic conditions: COPD: not in exacerbation> on breathing treatment with bronchodilators Hypertension: continue current BP meds- amlodipine and metoprolol Pulmonary hypertension; likely due to heart disease and COPD as well. 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 ISS. Accuchecks ACHS History of GI bleed: on PPI DVT prophylaxis; SCDs Code status: DNRCCA no intubation CODE STATUS is therefore DNR CCA per discussion with previous provider. Will officially change today (01/09) Greater than 20 minutes of which was spent reviewing data, images, vitals and previous documentation. Charges/Coding Visit Charges Inpatient E&M: 14212 Subs Hosp L2
[2022-01-11] MEDS: Metoprolol Tartrate 50 MG Tablet PO (11:24)
[2022-01-11] MEDS: Insulin Lispro 100 UNIT/ML INSULN.PEN SC (12:11)
[2022-01-11 12:52] LABS: Bedside Glucose 157 mg/dL (74-106)
--- NOTE | 2022-01-11 14:15 | CASEMGMT ---
Addendum entered by Sadaf Bright 01/11/22 14:28: TOYIN let Porsche at [facility] know this information as well. Sadaf GRANT Original Note: TOYIN received a voice mail from Porsche at [facility]. She received insurance authorization for patient. TOYIN notified Nurse Practitioner and physician. Patient will likely go today. Sadaf GRANT
--- NOTE | 2022-01-11 14:20 | PCM.TXEXTCAR ---
Documented by User: Sherie Siddiqui NP, OXYACETYLENE WELDER-C 01/11/22 14:38 Diet 01/08/22 18:19 Diet: Cardiac: Calorie-Controlled Food consistency:: Regular Liquid Consistency:: Regular/Thin How many daily calories?: 1800 calorie Routine Orders/Code Status Enema Type: Fleetz Enema Frequency: Daily PRN Suppository Type: Dulcolax 10mg Suppository Frequency: Daily PRN O2 Liters per Minute: 2 O2 Frequency: Continuous Keep PO Greater than or Equal to (%): 90 Routine Lab Work: - (weekly CBC, BMP) Code Status: DNRCC-A (with intubation) Suggestions for Active Care Change Position every (hours): 2 Times a day to sit in chair: 3 Therapies Physical Therapy: Eval and Treat Occupational Therapy: Eval and Treat Problem/Diagnosis (1) Ventricular tachycardia (paroxysmal): Status: Chronic Allergies/Procedures Done in Hospital Allergies No Known Allergies Allergy (Verified 01/07/22 22:25) Procedures: None Type of Care/Length of Stay Estimated LOS: Convalescent Care Less Than 30 days Type of Care Needed: Skilled Rehab Potential: Fair Prognosis: Fair Additional Orders/Day of Discharge H&P will serve as current which was dated: 01/08/22 Day of Discharge: 01/11/22 Dietary and Speech Recommendations Dietitian Recommendations/Changes: Continue Cardiac - Calorie Controlled 1800kcal Discharge Plan Admission Admit Date/Time: 01/08/22 17:20 Primary Reason for Your Visit: Paroxysmal ventricular tachycardia, right hip pain Attending Provider: Yefri Bhatt Primary Care Provider: Roscoe Bradley Consulting Providers: Uriah Kessler ; Nurys Montilla Instructions Additional Instructions / Restrictions: Please obtain palliative referral at SNF. Discharge Orders/Prescriptions Prescriptions: New acetaminophen 500 mg Tablet 1,000 mg PO Q8 Qty: 0 RF: 0 oxycodone 5 mg Tablet 10 mg PO Q6H PRN PRN (Reason: Pain Score 6-10) 2 Days Qty: 6 RF: 0 Continued levothyroxine 75 MCG tablet 25 mcg PO DAILY RF: 0 Hold Instructions: Resume on 12/08/21. Repeat thyroid function test after 2 weeks duloxetine 60 MG capsule 60 mg PO DAILY RF: 0 cholecalciferol (vitamin D3) 50,000 UNIT capsule 50,000 unit PO MO RF: 0 donepezil [Aricept] 5 MG tablet 5 mg PO QHS RF: 0 trazodone 50 MG tablet 50 mg PO QHS RF: 0 albuterol sulfate [ProAir HFA] 1 PUFF inhaler 2 puff inhalation TID PRN (Reason: Sob &/Or Wheezing) RF: 0 aspirin 81 MG tablet 81 mg PO DAILY RF: 0 budesonide 0.5 mg/2 mL Suspension For Nebulization 0.5 mg inhalation BID.RT Qty: 0 RF: 0 amlodipine 5 MG tablet 5 mg PO DAILY Qty: 0 RF: 0 isosorbide mononitrate 120 MG tablet 60 mg PO DAILY Qty: 0 RF: 0 bumetanide 0.5 mg tablet 0.5 mg PO BIDCM Qty: 0 RF: 0 hydroxyzine pamoate [Vistaril] 25 mg Capsule 25 mg PO BID PRN (Reason: Anxiety) RF: 0 magnesium 200 mg Tablet 400 mg PO BID RF: 0 pregabalin [Lyrica] 50 mg Capsule 50 mg PO BID RF: 0 pravastatin 40 mg Tablet 40 mg PO QHS RF: 0 fenofibrate 160 mg Tablet 160 mg PO DAILY RF: 0 spironolactone 25 mg tablet 25 mg PO DAILY RF: 0 pantoprazole [Protonix] 40 mg tablet,delayed release (DR/EC) 40 mg PO BID RF: 0 ferrous sulfate [FeroSul] 325 mg (65 mg iron) tablet 325 mg PO TUTHFR RF: 0 metoprolol tartrate 50 mg tablet 50 mg PO BID RF: 0 amiodarone 200 mg tablet 200 mg PO BID Qty: 0 RF: 0 Discontinued amiodarone 200 mg tablet 200 mg PO DAILY RF: 0 Referrals / Follow Up: Jamie Isbell MD [STAFF PHYSICIAN] - Within 2 Weeks Roscoe Bradley MD [Primary Care Provider] - In 1 Week Becca Booth PA [PHYSICIAN DRYING ROOM OPERATOR] - Within 1 Month Disposition Disposition (needs filled in before D/C Order can be placed): Assisted Facility Documented by User: Dr. Yefri Bhatt DO 01/11/22 15:07 Allergies/Procedures Done in Hospital Allergies No Known Allergies Allergy (Verified 01/07/22 22:25) Discharge Plan Admission Admit Date/Time: 01/08/22 17:20 Primary Reason for Your Visit: Paroxysmal ventricular tachycardia, right hip pain Attending Provider: Yefri Bhatt Primary Care Provider: Roscoe Bradley Consulting Providers: Uriah Kessler ; Nurys Montilla Instructions Additional Instructions / Restrictions: Please obtain palliative referral at SNF. Discharge Orders/Prescriptions Prescriptions: New acetaminophen 500 mg Tablet 1,000 mg PO Q8 Qty: 0 RF: 0 oxycodone 5 mg Tablet 10 mg PO Q6H PRN PRN (Reason: Pain Score 6-10) 2 Days Qty: 6 RF: 0 Continued levothyroxine 75 MCG tablet 25 mcg PO DAILY RF: 0 Hold Instructions: Resume on 12/08/21. Repeat thyroid function test after 2 weeks duloxetine 60 MG capsule 60 mg PO DAILY RF: 0 cholecalciferol (vitamin D3) 50,000 UNIT capsule 50,000 unit PO MO RF: 0 donepezil [Aricept] 5 MG tablet 5 mg PO QHS RF: 0 trazodone 50 MG tablet 50 mg PO QHS RF: 0 albuterol sulfate [ProAir HFA] 1 PUFF inhaler 2 puff inhalation TID PRN (Reason: Sob &/Or Wheezing) RF: 0 aspirin 81 MG tablet 81 mg PO DAILY RF: 0 budesonide 0.5 mg/2 mL Suspension For Nebulization 0.5 mg inhalation BID.RT Qty: 0 RF: 0 amlodipine 5 MG tablet 5 mg PO DAILY Qty: 0 RF: 0 isosorbide mononitrate 120 MG tablet 60 mg PO DAILY Qty: 0 RF: 0 bumetanide 0.5 mg tablet 0.5 mg PO BIDCM Qty: 0 RF: 0 hydroxyzine pamoate [Vistaril] 25 mg Capsule 25 mg PO BID PRN (Reason: Anxiety) RF: 0 magnesium 200 mg Tablet 400 mg PO BID RF: 0 pregabalin [Lyrica] 50 mg Capsule 50 mg PO BID RF: 0 pravastatin 40 mg Tablet 40 mg PO QHS RF: 0 fenofibrate 160 mg Tablet 160 mg PO DAILY RF: 0 spironolactone 25 mg tablet 25 mg PO DAILY RF: 0 pantoprazole [Protonix] 40 mg tablet,delayed release (DR/EC) 40 mg PO BID RF: 0 ferrous sulfate [FeroSul] 325 mg (65 mg iron) tablet 325 mg PO TUTHFR RF: 0 metoprolol tartrate 50 mg tablet 50 mg PO BID RF: 0 amiodarone 200 mg tablet 200 mg PO BID Qty: 0 RF: 0 Discontinued amiodarone 200 mg tablet 200 mg PO DAILY RF: 0 Referrals / Follow Up: Jamie Isbell MD [STAFF PHYSICIAN] - Within 2 Weeks Roscoe Bradley MD [Primary Care Provider] - In 1 Week Becca Booth PA [PHYSICIAN DRYING ROOM OPERATOR] - Within 1 Month Disposition Disposition (needs filled in before D/C Order can be placed): Assisted Facility
[2022-01-11] MEDS: Lidocaine 5% Patch 1 PATCH TOPICAL (14:36)
--- NOTE | 2022-01-11 14:38 | PCM.DC.SUM ---
Documented by User: Sherie Siddiqui NP, PHILOSOPHY FACULTY MEMBER-C 01/11/22 14:46 Providers Date of Admission: 01/08/22 Date of Discharge: 01/11/22 Primary Care Physician: Roscoe Bradley MD Consultations 01/08/22 18:55 Consult: Cardiology Routine Consulting Provider: Uriah Kessler Reason for Consult: nonstemi EMERGENT Consult: No MD Notified: Yes Date Notified: 01/08/22 Time Notified: 18:55 Method of Notification: Text Reason For Visit: RIGHT HIP PAIN, NONSTEMI Diagnosis Discharge Diagnosis (1) Ventricular tachycardia (paroxysmal): Status: Chronic Code(s): I47.2 - Ventricular tachycardia Medications at Discharge Home Medications duloxetine 60 mg PO DAILY 03/24/16 levothyroxine 25 mcg PO DAILY 03/24/16 cholecalciferol (vitamin D3) 50,000 unit PO MO 09/18/16 albuterol sulfate [ProAir HFA] 2 puff INHALATION TID PRN 10/11/18 donepezil [Aricept] 5 mg PO QHS 10/11/18 trazodone 50 mg PO QHS 10/11/18 aspirin 81 mg PO DAILY 11/28/18 amlodipine 5 mg PO DAILY #0 tab 11/25/21 budesonide 0.5 mg INHALATION BID.RT #0 ml 11/25/21 bumetanide 0.5 mg PO BIDCM #0 tab 11/25/21 isosorbide mononitrate 60 mg PO DAILY #0 tab 11/25/21 hydroxyzine pamoate [Vistaril] 25 mg PO BID PRN 12/16/21 magnesium 400 mg PO BID 12/16/21 pregabalin [Lyrica] 50 mg PO BID 12/16/21 fenofibrate 160 mg PO DAILY 01/08/22 ferrous sulfate [FeroSul] 325 mg PO TUTHFR 01/08/22 metoprolol tartrate 50 mg PO BID 01/08/22 pantoprazole [Protonix] 40 mg PO BID 01/08/22 pravastatin 40 mg PO QHS 01/08/22 spironolactone 25 mg PO DAILY 01/08/22 acetaminophen 1,000 mg PO Q8 #0 tab 01/11/22 amiodarone 200 mg PO BID #0 tab 01/11/22 oxycodone 10 mg PO Q6H PRN PRN 2 Days #6 tab 01/11/22 Hospital Course Operations None Procedures None Summary of Care Provided Hospital Course: Patient is an 81 year old female admitted 01/08/22 due to firing of ICD and right hip pain. 1. Paroxysmal ventricular tachycardia/PAF-cardiology consulted during admission. AICD fired prior to admission. Initiated on amiodarone. Continue metoprolol. Magnesium mildly low, replaced. TSH normal. Follow up with PCP and cardiology. 2. Intractable right hip pain-PT/OT. As needed pain regimen. Denies recent injury. Hip/pelvis x-ray with degenerative changes. No fracture or dislocation. Continue outpatient follow-up with pain management. Patient states she recently had back injection by pain management in November 2021. 3. Chest pain/abnormal troponin- likely due to arrhythmia. Per cardiology, no indication for further ischemic work-up at this time. 4. Chronic heart failure with reduced ejection fraction secondary to ischemic cardiomyopathy/CAD with history of stents/bypass-on Bumex, Aldactone. Stable. Echocardiogram November 2021 with EF 25%, severe tricuspid valve insufficiency, RVSP 52 mmHg. Continue aspirin, statin, metoprolol, isosorbide. 5. Chronic COPD-no exacerbation. Continue home inhaler regimen. 6. Type 2 diabetes mellitus-continue home regimen. 7. Hypertension stable, continue current regimen-on amlodipine, metoprolol. 8. Hyperlipidemia-continue statin. 9. Hypothyroidism-continue Synthroid. TSH/T4 normal. 10. History of GI bleed-continue PPI. 11. Macular degeneration with chronic blindness 12. Dementia, unknown behavioral disturbance history-continue donepezil. Physical Exam Const alert, oriented x3 and no apparent distress Orientation / Consciousness: awake, oriented to person, oriented to place and oriented to time HEENT normocephalic and moist oral mucous membranes Eyes PERRL, EOMs intact bilaterally and conjunctivae normal Neck no lymphadenopathy Resp normal respiratory effort and clear to auscultation bilaterally Cardio regular rate, regular rhythm and no murmurs Peripheral Pulses: pulses 2+ throughout GI normal to inspection, nondistended, normoactive bowel sounds, non-tender and non-distended Extremity normal to inspection Skin no rashes or lesions noted Lesions: no lesions Rashes: no rashes Trauma: no lacerations or abrasions Neuro CN's II-XII intact bilaterally, no focal motor deficits, no sensory deficits noted and deep tendon reflexes 2+ bilaterally Psych mental status grossly normal and affect normal Patient seen and examined prior to discharge. Physical assessment as noted above. Stable for discharge to SNF. Palliative referral at discharge. This patient was seen by JERED Malin under the supervision of Dr. Bhatt. Time spent examining patient, reviewing data and subsequent management of care: 17 minutes Weight / BMI Weight Weight: 124 lb 1.924 oz Body Mass Index (BMI) 21.3 ABG / Lab / Microbiology Data Result Diagrams: 01/10/22 06:32 01/11/22 05:25 Laboratory: Laboratory Results - last 24 hr 01/10/22 16:28: POC Glucose 179 H 01/10/22 21:54: POC Glucose 163 H 01/11/22 05:25: Sodium 136, Potassium 4.4, Chloride 102, Carbon Dioxide 27.0, Anion Gap 7, BUN 23 H, Creatinine 0.78, Estim Creat Clear Calc 38.75, Est GFR (MDRD) Af Amer 91, Est GFR (MDRD) Non-Af 75, BUN/Creatinine Ratio 29.4 H, Glucose 131 H, Calcium 8.8 01/11/22 06:48: POC Glucose 130 H 01/11/22 12:09: POC Glucose 157 H Meaningful Use Info Meaningful Use Diagnoses (Choose all that apply): None applicable Discharge Plan Admission Admit Date/Time: 01/08/22 17:20 Primary Reason for Your Visit: Paroxysmal ventricular tachycardia, right hip pain Attending Provider: Yefri Bhatt Primary Care Provider: Roscoe Bradley Consulting Providers: Uriah Kessler ; Nurys Montilla Instructions Additional Instructions / Restrictions: Please obtain palliative referral at SNF. Discharge Orders/Prescriptions Prescriptions: New acetaminophen 500 mg Tablet 1,000 mg PO Q8 Qty: 0 RF: 0 oxycodone 5 mg Tablet 10 mg PO Q6H PRN PRN (Reason: Pain Score 6-10) 2 Days Qty: 6 RF: 0 Continued levothyroxine 75 MCG tablet 25 mcg PO DAILY RF: 0 Hold Instructions: Resume on 12/08/21. Repeat thyroid function test after 2 weeks duloxetine 60 MG capsule 60 mg PO DAILY RF: 0 cholecalciferol (vitamin D3) 50,000 UNIT capsule 50,000 unit PO MO RF: 0 donepezil [Aricept] 5 MG tablet 5 mg PO QHS RF: 0 trazodone 50 MG tablet 50 mg PO QHS RF: 0 albuterol sulfate [ProAir HFA] 1 PUFF inhaler 2 puff inhalation TID PRN (Reason: Sob &/Or Wheezing) RF: 0 aspirin 81 MG tablet 81 mg PO DAILY RF: 0 budesonide 0.5 mg/2 mL Suspension For Nebulization 0.5 mg inhalation BID.RT Qty: 0 RF: 0 amlodipine 5 MG tablet 5 mg PO DAILY Qty: 0 RF: 0 isosorbide mononitrate 120 MG tablet 60 mg PO DAILY Qty: 0 RF: 0 bumetanide 0.5 mg tablet 0.5 mg PO BIDCM Qty: 0 RF: 0 hydroxyzine pamoate [Vistaril] 25 mg Capsule 25 mg PO BID PRN (Reason: Anxiety) RF: 0 magnesium 200 mg Tablet 400 mg PO BID RF: 0 pregabalin [Lyrica] 50 mg Capsule 50 mg PO BID RF: 0 pravastatin 40 mg Tablet 40 mg PO QHS RF: 0 fenofibrate 160 mg Tablet 160 mg PO DAILY RF: 0 spironolactone 25 mg tablet 25 mg PO DAILY RF: 0 pantoprazole [Protonix] 40 mg tablet,delayed release (DR/EC) 40 mg PO BID RF: 0 ferrous sulfate [FeroSul] 325 mg (65 mg iron) tablet 325 mg PO TUTHFR RF: 0 metoprolol tartrate 50 mg tablet 50 mg PO BID RF: 0 amiodarone 200 mg tablet 200 mg PO BID Qty: 0 RF: 0 Discontinued amiodarone 200 mg tablet 200 mg PO DAILY RF: 0 Referrals / Follow Up: Jamie Isbell MD [STAFF PHYSICIAN] - Within 2 Weeks Roscoe Bradley MD [Primary Care Provider] - In 1 Week Becca Booth PA [PHYSICIAN SCORER SINGLE] - Within 1 Month Disposition Disposition (needs filled in before D/C Order can be placed): Retirement Facility Documented by User: Dr. Yefri Bhatt DO 01/11/22 15:09 Providers Date of Admission: 01/08/22 Reason For Visit: RIGHT HIP PAIN, NONSTEMI Medications at Discharge Home Medications duloxetine 60 mg PO DAILY 03/24/16 levothyroxine 25 mcg PO DAILY 03/24/16 cholecalciferol (vitamin D3) 50,000 unit PO MO 09/18/16 albuterol sulfate [ProAir HFA] 2 puff INHALATION TID PRN 10/11/18 donepezil [Aricept] 5 mg PO QHS 10/11/18 trazodone 50 mg PO QHS 10/11/18 aspirin 81 mg PO DAILY 11/28/18 amlodipine 5 mg PO DAILY #0 tab 11/25/21 budesonide 0.5 mg INHALATION BID.RT #0 ml 11/25/21 bumetanide 0.5 mg PO BIDCM #0 tab 11/25/21 isosorbide mononitrate 60 mg PO DAILY #0 tab 11/25/21 hydroxyzine pamoate [Vistaril] 25 mg PO BID PRN 12/16/21 magnesium 400 mg PO BID 12/16/21 pregabalin [Lyrica] 50 mg PO BID 12/16/21 fenofibrate 160 mg PO DAILY 01/08/22 ferrous sulfate [FeroSul] 325 mg PO TUTHFR 01/08/22 metoprolol tartrate 50 mg PO BID 01/08/22 pantoprazole [Protonix] 40 mg PO BID 01/08/22 pravastatin 40 mg PO QHS 01/08/22 spironolactone 25 mg PO DAILY 01/08/22 acetaminophen 1,000 mg PO Q8 #0 tab 01/11/22 amiodarone 200 mg PO BID #0 tab 01/11/22 oxycodone 10 mg PO Q6H PRN PRN 2 Days #6 tab 01/11/22 Hospital Course Summary of Care Provided Minutes Spent on Discharge: 32 Hospital Course: Patient seen and examined independently. Data and vitals reviewed. I agree with the above note by the nurse practitioner. 1. RIght hip pain chronic appears to be due to sciatica she does have a history of right hip pain. PT/OT consult fall precautions PO tylenol, PO oxycodone and IV morphine prn for pain cannot get an MRI due to ICD. start lidoderm patch 2. Nstemi initial high sensivitity troponin is 148 will cycle troponins. ws seen in November 2021 for nonstemi, and had 2D echo which showed EF of 25% with RV dysfunction and dilattaiton, as well as severe tricuspid valve insufficiencey and RVSP of 52mmhg she didnt have any extensive cardiac workup then because code status was changed to DNRCC. Family was considering hospice care but subsequently changed their minds I spoke to her son David Lomax about her code status, and he wants her to have her nonstemi treated will therefore consult cardiology. give one dose of therapuetic lovenox give high intensity statin Seen by cardiology. Follow-up troponin elevation due to firing of ICD. No additional cardiac work-up at this time. 3. HFreF: not in exacerbation. On bumex and aldactone has ICD in place; this was firing yesterday so she came in to [facility] ED and was started on amiodarone as per cardiology. 4. Ventricular tachycardia presented to the ED yesterday with firing of her ICD. she was found to be in vtach this was discussed with cardiology and she was started on amiodarone 200mg bid continue amiodarone. potassium is 3.4, will replace check magnesium level 5. Chronic conditions: COPD: not in exacerbation> on breathing treatment with bronchodilators Hypertension: continue current BP meds- amlodipine and metoprolol Pulmonary hypertension; likely due to heart disease and COPD as well. 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 ISS. Accuchecks ACHS History of GI bleed: on PPI ABG / Lab / Microbiology Data Result Diagrams: 01/10/22 06:32 01/11/22 05:25 Discharge Plan Admission Admit Date/Time: 01/08/22 17:20 Primary Reason for Your Visit: Paroxysmal ventricular tachycardia, right hip pain Attending Provider: Yefri Bhatt Primary Care Provider: Roscoe Bradley Consulting Providers: Uriah Kessler ; Nurys Montilla Instructions Additional Instructions / Restrictions: Please obtain palliative referral at SNF. Discharge Orders/Prescriptions Prescriptions: New acetaminophen 500 mg Tablet 1,000 mg PO Q8 Qty: 0 RF: 0 oxycodone 5 mg Tablet 10 mg PO Q6H PRN PRN (Reason: Pain Score 6-10) 2 Days Qty: 6 RF: 0 Continued levothyroxine 75 MCG tablet 25 mcg PO DAILY RF: 0 Hold Instructions: Resume on 12/08/21. Repeat thyroid function test after 2 weeks duloxetine 60 MG capsule 60 mg PO DAILY RF: 0 cholecalciferol (vitamin D3) 50,000 UNIT capsule 50,000 unit PO MO RF: 0 donepezil [Aricept] 5 MG tablet 5 mg PO QHS RF: 0 trazodone 50 MG tablet 50 mg PO QHS RF: 0 albuterol sulfate [ProAir HFA] 1 PUFF inhaler 2 puff inhalation TID PRN (Reason: Sob &/Or Wheezing) RF: 0 aspirin 81 MG tablet 81 mg PO DAILY RF: 0 budesonide 0.5 mg/2 mL Suspension For Nebulization 0.5 mg inhalation BID.RT Qty: 0 RF: 0 amlodipine 5 MG tablet 5 mg PO DAILY Qty: 0 RF: 0 isosorbide mononitrate 120 MG tablet 60 mg PO DAILY Qty: 0 RF: 0 bumetanide 0.5 mg tablet 0.5 mg PO BIDCM Qty: 0 RF: 0 hydroxyzine pamoate [Vistaril] 25 mg Capsule 25 mg PO BID PRN (Reason: Anxiety) RF: 0 magnesium 200 mg Tablet 400 mg PO BID RF: 0 pregabalin [Lyrica] 50 mg Capsule 50 mg PO BID RF: 0 pravastatin 40 mg Tablet 40 mg PO QHS RF: 0 fenofibrate 160 mg Tablet 160 mg PO DAILY RF: 0 spironolactone 25 mg tablet 25 mg PO DAILY RF: 0 pantoprazole [Protonix] 40 mg tablet,delayed release (DR/EC) 40 mg PO BID RF: 0 ferrous sulfate [FeroSul] 325 mg (65 mg iron) tablet 325 mg PO TUTHFR RF: 0 metoprolol tartrate 50 mg tablet 50 mg PO BID RF: 0 amiodarone 200 mg tablet 200 mg PO BID Qty: 0 RF: 0 Discontinued amiodarone 200 mg tablet 200 mg PO DAILY RF: 0 Referrals / Follow Up: Jamie Isbell MD [STAFF PHYSICIAN] - Within 2 Weeks Roscoe Bradley MD [Primary Care Provider] - In 1 Week Becca Booth, PA [PHYSICIAN SCORER SINGLE] - Within 1 Month Disposition Disposition (needs filled in before D/C Order can be placed): Retirement Facility Charges/Coding Visit Charges Inpatient E&M: 86077 Disch Hosp
--- NOTE | 2022-01-11 15:15 | CASEMGMT ---
TOYIN called [facility] to arrange transport for patient to go to [facility] via wheelchair. This is required by patient's insurance. TOYIN spoke with Rex. TOYIN told patient at least 2 times that [facility] is [facility]'s preferred provider, patient needs a wheelchair, and patient needs O2. Rex said they cannot send a wheelchair for someone on O2. TOYIN requested a 5p rock picker. Confirmation number is [id number]. TOYIN then called [facility] as instructed and spoke with Ben. Ben said they don't have to call [facility], as they should call them. TOYIN told Ben TOYIN is just letting him know what TOYIN was told. TOYIN gave Ben the confirmation number from [facility] as well as patient's information. operations support analyst time will be 530 via wheelchair. TOYIN completed a 7000 on [employer]. TOYIN faxed orders, negative COVID, and rock picker time to [facility]. TOYIN notified RN, secretary administrative assistant, patient, and Porsche at [facility]. All in agreement with d/c to [facility]. Plan: d/c to [facility] under skilled level of care on a convalescent stay. [facility] will transport via . [facility] Confirmation number [id number]. Sadaf GRANT
--- NOTE | 2022-01-11 15:35 | CASEMGMT ---
Message left with pt's son, David, to update on pt transport time to [facility] pt at 1730 today. Ivet TAVERAS CM
--- NOTE | 2022-01-11 16:01 | NURSING ---
report given to [facility]
[2022-01-11 16:45] LABS: Bedside Glucose 151 mg/dL (74-106)
--- NOTE | 2022-01-12 08:30 | CASEMGMT ---
TOYIN faxed d/c orders to Mckayla Craft, patient's telephonic nurse case manager at [facility]. Sadaf Bright LANE MARKER INSTALLER JUANITA
== END 2022-01-11 20:11 | DRG 309 ==
LOC: ED 17:17 → PCU 17:32
PROVIDERS: Nurse Practitioner Family; Admitting Provider Student in an Organized Health Care Education/Training Program; Emergency Provider Emergency Medicine; PCP Family Medicine
DX: I47.2 Ventricular tachycardia (principal); I50.32 Chronic diastolic (congestive) heart failure; I27.20 Pulmonary hypertension, unspecified; E11.40 Type 2 diabetes mellitus with diabetic neuropathy, unspecified; F03.90 Unspecified dementia, unspecified severity, without behavioral disturbance, psychotic disturbance, mood disturbance, and anxiety; I11.0 Hypertensive heart disease with heart failure; I48.0 Paroxysmal atrial fibrillation; J44.9 Chronic obstructive pulmonary disease, unspecified; Z79.4 Long term (current) use of insulin; E03.9 Hypothyroidism, unspecified; M25.551 Pain in right hip; E78.5 Hyperlipidemia, unspecified; H35.30 Unspecified macular degeneration; I25.2 Old myocardial infarction; I34.0 Nonrheumatic mitral (valve) insufficiency; G25.81 Restless legs syndrome; K76.0 Fatty (change of) liver, not elsewhere classified; I25.10 Atherosclerotic heart disease of native coronary artery without angina pectoris; H54.3 Unqualified visual loss, both eyes; I44.7 Left bundle-branch block, unspecified; Z87.19 Personal history of other diseases of the digestive system; Z95.810 Presence of automatic (implantable) cardiac defibrillator; Z85.3 Personal history of malignant neoplasm of breast; Z87.891 Personal history of nicotine dependence; Z79.899 Other long term (current) drug therapy; Z79.82 Long term (current) use of aspirin; Z66 Do not resuscitate
CPT/HCPCS: 36415; 71045; 72100; 80048; 80053; 82962; 83735; 83880; 84439; 84443; 84484; 85025; 87811; 93005; 94640; 97110; 97162; 97166; 97530; 99285; A4216; J2405

== ENCOUNTER 2022-02-23 13:14 | Emergency (ER) | payer MEDICARE, MEDICAID, SELFPAY ==
[2022-02-23 13:16] VITALS: BP 128/63; PULSE 64; RESP 17; TEMP 36.3; O2SAT 96; BMI 22.5
--- NOTE | 2022-02-23 13:45 | RAD_ITS ---
STUDY: X-RAY - LUMBAR SPINE REASON FOR EXAM: Female, 81 years old. Injury/Pain TECHNIQUE: 3 view(s) of the lumbar spine were obtained. COMPARISON: Comparison is made with prior study dated 01/08/2022. FINDINGS: Normal lumbar lordosis. There is a minimal dextroscoliosis of the lumbar spine. There is a normal alignment of the vertebrae. Disc space narrowing and spondylosis at the L4-L5 and L5-S1 levels. Mild loss of height of the superior endplate of the L5 vertebrae. This is unchanged. Facet joint osteoarthritis. There is atherosclerotic calcification of the abdominal aorta without a demonstrated aneurysm. RAD/Lumbar Spine 2 or 3 Views IMPRESSION: Degenerative changes of the spine, as detailed above. Stable mild loss of height of the superior endplate of the L5 vertebrae. Electronically Signed: Sal Hui MD at 14:26 EDT ,
--- NOTE | 2022-02-23 13:45 | RAD_ITS ---
STUDY: X-RAY - PELVIS AND RIGHT HIP REASON FOR EXAM: Female, 81 years old. FELL 4 DAYS AGO RIGHT HIP PAIN, LBP TECHNIQUE: 3 views of the pelvis and hip. COMPARISON: None. FINDINGS: No visualized acute fracture or displaced bony fragment. Atherosclerotic calcifications are present. Vascular stents are seen in the iliac vessels. There is a non-specific bowel gas pattern. Normal visualized soft tissue structures. Normal bilateral iliac wings, sacroiliac joints and visualized sacrum. Normal bilateral superior and inferior pubic rami. Normal pubic symphysis. Normal bilateral ischial tuberosities. Normal visualized femoral head. Normal acetabulum. There is mild to moderate axial narrowing of the right hip joint. The left hip joint space is preserved. RAD/HIP, UNI W/ Pelvis 2-3 Views IMPRESSION: No acute process Electronically Signed: Keaton Dominguez MD at 14:40 EDT ,
--- NOTE | 2022-02-23 13:46 | EDS_ITS ---
HPI <EDA Abbott - Last Filed: 02/23/22 15:10> History of Present Illness Chief Complaint: General Illness Narrative Narrative: 81-year-old female states she had appointment with her PCP today and they sent her to the ED due to multiple complaints. Her doctor thought she needs more help at home. She lives independently home alone and states she manages pretty well. She is legally blind and is supposed to wear hearing aids but they are broken. She uses a walker and a couple days ago thought she was backing up to sit down on her recliner but it was really the footstool so she fell and landed on her butt. No head injury or LOC. Since then she has had worsening pain in her right low back and hip. She is still able to walk. No weakness numbness or tingling. She has no other complaints and states she has been in [place] [employer] [place] recently since being home from treatment for UTI. [facility] <EDA Abbott - Last Filed: 02/23/22 15:10> [facility] Medical History (Updated 02/23/22 @ 15:09 by EDA Abbott) Acute UT, inferoposterior wall, subsequent episode of care Anemia Angina pectoris Atherosclerotic heart disease of [place] coronary artery without angina pectoris Atrial fibrillation Blindness of both eyes Body mass index (bmi) 26.0-26.9, adult Breast cancer Cancer COPD (chronic obstructive pulmonary disease) Debility Dementia Diabetes mellitus Elevated troponin Essential hypertension Former smoker Hepatic insufficiency History of diabetes mellitus History of UT (myocardial infarction) History of steroid therapy HLD (hyperlipidemia) HTN (hypertension) Hypothyroidism Implantable cardioverter-defibrillator (ICD) in situ Irregular heart beat Ischemic cardiomyopathy Monomorphic ventricular tachycardia Non-ST elevation (NSTEMI) myocardial infarction Nonalcoholic hepatosteatosis Nonrheumatic mitral valve regurgitation Nonrheumatic tricuspid (valve) insufficiency Old myocardial infarction Pacemaker Palpitations Paroxysmal a-fib Paroxysmal SVT (supraventricular tachycardia) Pre-syncope Presence of biventricular automatic cardioverter/defibrillator (AICD) Restless legs Right leg pain Sciatica Shortness of breath Shortness of breath Syncope Ventricular tachyarrhythmia Ventricular tachycardia (paroxysmal) Wears hearing aid in both ears Home Medications duloxetine 60 mg capsule,delayed release 60 mg PO DAILY depression 03/24/16 [History Last Taken 11/28/18] levothyroxine 75 mcg tablet 25 mcg PO DAILY thyroid 03/24/16 [History Last Taken 11/28/18] cholecalciferol (vitamin D3) 1,250 mcg (50,000 unit) capsule 50,000 unit PO MO supplement 09/18/16 [History Last Taken 11/25/18] donepezil 5 mg tablet (Aricept) 5 mg PO QHS memory 10/11/18 [History Last Taken 11/28/18] trazodone 50 mg tablet 50 mg PO QHS sleep 10/11/18 [History Last Taken 11/27/18] aspirin 81 mg tablet,delayed release 81 mg PO DAILY heart health 11/28/18 [History Last Taken 11/28/18] amlodipine 5 mg tablet 5 mg PO DAILY bp #0 tabs 11/25/21 [Rx Last Taken 11/28/18] bumetanide 0.5 mg tablet 0.5 mg PO BIDCM edema #0 tabs 11/25/21 [Rx Last Taken 11/28/18] isosorbide mononitrate 120 mg tablet,extended release 24 hr 60 mg PO DAILY htn #0 tabs 11/25/21 [Rx Last Taken 11/28/18] hydroxyzine pamoate 25 mg capsule (Vistaril) 25 mg PO BID PRN Anxiety 12/16/21 [History Last Taken Unknown] magnesium 200 mg tablet 400 mg PO BID Check with primary doctor 12/16/21 [History Last Taken Unknown] pregabalin 50 mg capsule (Lyrica) 50 mg PO BID Check with primary doctor 12/16/21 [History Last Taken Unknown] fenofibrate 160 mg tablet 160 mg PO DAILY Check with primary doctor 01/08/22 [History Last Taken Unknown] ferrous sulfate 325 mg (65 mg iron) tablet (FeroSul) 325 mg PO TUTHFR Check with primary doctor 01/08/22 [History Last Taken Unknown] metoprolol tartrate 50 mg tablet 50 mg PO BID Check with primary doctor 01/08/22 [History Last Taken Unknown] pantoprazole 40 mg tablet,delayed release (Protonix) 40 mg PO BID Check with primary doctor 01/08/22 [History Last Taken Unknown] pravastatin 40 mg tablet 40 mg PO QHS Check with primary doctor 01/08/22 [History Last Taken Unknown] spironolactone 25 mg tablet 25 mg PO DAILY Check with primary doctor 01/08/22 [History Last Taken Unknown] acetaminophen 500 mg tablet 1,000 mg PO Q8 #0 tabs 01/11/22 [Rx Last Taken Unknown] hydrocodone-acetaminophen 5-325mg 5mg-325mg 1 tab PO Q4H PRN Pain 02/23/22 [History Last Taken Unknown] melatonin 10 mg tablet 10 mg PO QHS 02/23/22 [History Last Taken Unknown] minerals 1 tab PO DAILY 02/23/22 [History Last Taken Unknown] vit C 250 mg-vit E 90 mg-zinc 40 mg-copper 1 [id number] capsule (PreserVision AREDS-2) 1 tab PO BID 02/23/22 [History Last Taken Unknown] Allergy/AdvReac Type Severity Reaction Status Date / Time No Known Allergies Allergy Verified 02/23/22 13:22 Family History Son Asthma Father Cancer Mother Cancer Brother Cancer Surgical History Aortocoronary bypass status (~12/08/02) History of coronary artery stent placement History of mastectomy Postsurgical percutaneous transluminal coronary angioplasty (PTCA) status Presence of stent in coronary artery (~11/30/01) S/P implantation of automatic cardioverter/defibrillator (AICD) Social History household members: none Smoking Status: Former smoker alcohol intake: never substance use type: does not use ROS <EDA Abbott - Last Filed: 02/23/22 15:10> ROS ED ROS Narrative Constitutional: Negative for fever, chills, malaise. Eyes: Negative for visual change. ENT: Negative for sore throat, ear pain, rhinorrhea. CVS: Negative for palpitations, chest pain, syncope. Respiratory: Negative for shortness of breath, cough, orthopnea. GI: Negative for abdominal pain, nausea, vomiting, diarrhea, constipation, melena, hematochezia. : Negative for dysuria, hematuria or frequency. Neuro: Negative for headache, motor/sensory dysfunction. Skin: Negative for rash, abscess, or wound. Musc: Positive for leg pain, trauma. Heme: Negative for easy bruising, bleeding, lymphadenopathy. EXAM <EDA Abbott - Last Filed: 02/23/22 15:10> Physical Exam Narrative Exam Narrative: CONST: Patient sitting in no acute distress. EYES: Normal inspection. ENT: Normal inspection, moist mucous membranes. NECK: Normal inspection. RESP: No respiratory distress, CTAB. CVS: Regular rate and rhythm, no murmur, no gallop. ABD: Soft and nontender, no guarding or rebound, nondistended,. Pelvis: Stable, nontender. Back: Normal inspection, no midline spinal tenderness or step offs, TTP right iliac crest. SKIN: Color normal, no rash, warm, dry, intact. EXTREMITIES: Normal appearance, full ROM, 5/5 strength and normal sensation, 2+ radial and DP pulses. NEURO: Oriented x4. PSYCH: Normal affect. Const Vital Signs: 02/23/22 13:16 02/23/22 14:14 Temperature 97.4 F L Temperature Source Temporal Pulse Rate 64 Respiratory Rate 17 Respiratory Effort Normal Respiratory Pattern Normal Blood Pressure 128/63 H Blood Pressure Mean 84 Pulse Ox 96 Oxygen Delivery Method Room Air <Dr. Rj Barron MD - Last Filed: 02/23/22 15:34> Physical Exam Const Vital Signs: 02/23/22 13:16 02/23/22 14:14 Temperature 97.4 F L Temperature Source Temporal Pulse Rate 64 Respiratory Rate 17 Respiratory Effort Normal Respiratory Pattern Normal Blood Pressure 128/63 H Blood Pressure Mean 84 Pulse Ox 96 Oxygen Delivery Method Room Air MDM <EDA Abbott - Last Filed: 02/23/22 15:10> [facility] Narrative Medical decision making narrative: Patient had a mechanical fall and presents with low back and right hip pain. There was no head injury. She appears well and nontoxic. Vital signs within normal limits. Heart is regular. Lungs clear. Abdomen soft and nontender. Pelvis intact. There is no midline spinal tenderness but some tenderness of the right iliac crest and lower back. Mild tenderness over the right hip. Full range of motion of upper and lower extremities and MSPs intact. X-rays of the lumbar spine and hip and pelvis were obtained and show osteoarthritis but no acute fracture or dislocation. Patient is able to ambulate and is comfortable going home. She was given Tylenol here and can continue this as well. Regarding her family doctor being concerned she does not have enough help at home, patient states she wants to go home and is managing well enough with her aides. They come 2 days a week and she would like them to come 3 days a week and her agency is working on this. I consulted social work who provided pamphlets for other community resources. Patient was discharged home in stable condition. 1. Mechanical fall 2. Low back pain 3. Right hip pain Radiography Diagnostic Testing: Clinical Impression(s) from Imaging Studies Hip/Pelvis X-Ray 02/23/22 13:45 IMPRESSION: No acute process Electronically Signed: Keaton Dominguez MD at 14:40 EDT , Lumbar Spine X-Ray 02/23/22 13:45 IMPRESSION: Degenerative changes of the spine, as detailed above. Stable mild loss of height of the superior endplate of the L5 vertebrae. Electronically Signed: Sal Hui MD at 14:26 EDT , ED attending interpretation of right hip shows no fracture or dislocation. ED attending interpretation of the lumbar spine shows degenerative changes, no acute fracture. <Dr. Rj Barron MD - Last Filed: 02/23/22 15:34> [facility] MDM Narrative Medical decision making narrative: Patient had a mechanical fall and presents with low back and right hip pain. There was no head injury. She appears well and nontoxic. Vital signs within normal limits. Heart is regular. Lungs clear. Abdomen soft and nontender. Pelvis intact. There is no midline spinal tenderness but some tenderness of the right iliac crest and lower back. Mild tenderness over the right hip. Full range of motion of upper and lower extremities and MSPs intact. X-rays of the lumbar spine and hip and pelvis were obtained and show osteoarthritis but no acute fracture or dislocation. Patient is able to ambulate and is comfortable going home. She was given Tylenol here and can continue this as well. Regarding her family doctor being concerned she does not have enough help at home, patient states she wants to go home and is managing well enough with her aides. They come 2 days a week and she would like them to come 3 days a week and her agency is working on this. I consulted social work who provided pamphlets for other community resources. Patient was discharged home in stable condition. 1. Mechanical fall 2. Low back pain 3. Right hip pain I have personally performed a face to face assessment of the patient and have reviewed the DAVID Note. I performed a substantive portion of the visit including all aspects of the following. My demarco findings include: History is remarkable for multiple falls. She complains of low back pain and right hip pain. She was sent in by her PCP for evaluation and outpatient nursing services. Patient denies head trauma. She denies loss of conscious. She denies neck pain. She denies paresthesia, anesthesia or motor weakness. She does have hospital nursing assistant during the week. She denies fever, chills night sweats. She denies cardiac or respiratory symptoms. She denies GI or symptoms. Exam is there is pain palpation over the right greater trochanteric region. There is no instability the pelvis. There is right low back pain and pain over the lumbar sacral region. There is no discomfort with logrolling. There is no shortening. Abdomen is soft nontender. Bowel sounds are diminished. Head is atraumatic normocephalic. There is no clinical findings of basal skull fracture. Trachea is midline. There is no cervical spine tenderness. There is no dorsal spine tenderness. GCS is 15. Patient is hard of hearing. She states she did not bring her hearing aids to the hospital. Medical Decision Making we will obtain x-rays to assess for fracture and consult case management. Other additions or changes: Three-view x-ray of the hip reveals no acute process. There is no fracture, subluxation or dislocation. There is minor arthritic changes noted. There is also evidence of atherosclerotic disease. Views of the lumbar spine were obtained. There is slight loss of height of L5. This probably represents an old compression fracture. There is significant atherosclerosis of the aorta and iliacs. There is no evidence of subluxation or dislocation. Radiography Chest X-Ray - ED: Read by ED Physician (The x-ray of the hip and LS-spine were independently reviewed and interpreted by me.) Diagnostic Testing: Clinical Impression(s) from Imaging Studies Hip/Pelvis X-Ray 02/23/22 13:45 IMPRESSION: No acute process Electronically Signed: Keaton Dominguez MD at 14:40 EDT , Lumbar Spine X-Ray 02/23/22 13:45 IMPRESSION: Degenerative changes of the spine, as detailed above. Stable mild loss of height of the superior endplate of the L5 vertebrae. Electronically Signed: Sal Hui MD at 14:26 EDT , Discharge Plan Triage Chief Complaint: General Illness ED Midlevel Provider: Dolly Rebollar ED Provider: Rj Barron Dx/Rx/DC Orders Clinical Impression: Acute pain of right hip, Low back pain Instructions: ED Hip Contusion Prescriptions: No Action levothyroxine 75 MCG tablet 25 mcg PO DAILY Hold Instructions: Resume on 12/08/21. Repeat thyroid function test after 2 weeks duloxetine 60 MG capsule 60 mg PO DAILY cholecalciferol (vitamin D3) 50,000 UNIT capsule 50,000 unit PO MO donepezil [Aricept] 5 MG tablet 5 mg PO QHS trazodone 50 MG tablet 50 mg PO QHS aspirin 81 MG tablet 81 mg PO DAILY amlodipine 5 MG tablet 5 mg PO DAILY Qty: 0 0RF Rx Instructions: Hold for SBP less than 130 mmHg isosorbide mononitrate 120 MG tablet 60 mg PO DAILY Qty: 0 0RF Rx Instructions: Hold for SBP less than 130 mmHg bumetanide 0.5 mg tablet 0.5 mg PO BIDCM Qty: 0 0RF hydroxyzine pamoate [Vistaril] 25 mg Capsule 25 mg PO BID PRN (Reason: Anxiety) magnesium 200 mg Tablet 400 mg PO BID pregabalin [Lyrica] 50 mg Capsule 50 mg PO BID pravastatin 40 mg Tablet 40 mg PO QHS fenofibrate 160 mg Tablet 160 mg PO DAILY spironolactone 25 mg tablet 25 mg PO DAILY pantoprazole [Protonix] 40 mg tablet,delayed release (DR/EC) 40 mg PO BID ferrous sulfate [FeroSul] 325 mg (65 mg iron) tablet 325 mg PO TUTHFR metoprolol tartrate 50 mg tablet 50 mg PO BID Rx Instructions: Hold for heart less than 60 or systolic blood pressure less than 100 mmHg. acetaminophen 500 mg Tablet 1,000 mg PO Q8 Qty: 0 0RF hydrocodone-acetaminophen 5-325 mg Tablet 1 tab PO Q4H PRN (Reason: Pain) Multi Minerals Tablet 1 tab PO DAILY melatonin 10 mg Tablet 10 mg PO QHS PreserVision AREDS-2 250-90-40-1 mg Capsule 1 tab PO BID Primary Care Provider: Roscoe Bradley Referrals: Roscoe Bradley MD [Primary Care Provider] - Activity Restrictions/Additional Instructions: X-rays of her hip and low back showed no broken bones. Rest, ice, and take Tylenol as needed and please follow-up with your primary care doctor. Please make sure your agency is working on getting an aide for third day a week. Disposition Disposition: Home, Self Care
[2022-02-23] MEDS: Acetaminophen 500 MG Tablet 1000 MG PO (15:24)
[2022-02-23 16:21] VITALS: BP 122/85; PULSE 72; RESP 15; O2SAT 98
--- NOTE | 2022-02-23 20:54 | CM.ED ---
Social Work Note SW received referral for [facility] [employer]. SW reviewed chart, pt with [facility] [employer] [facility] CM Linh Craft. SW in to speak with pt. Pt states that she has aide services Sunday and for 4 hours each day. Pt states that she would like her aide hours to increase by one day. Pt states that she was getting Meals delivered but states she doesn't care for the meals so her aide cooks for her. Pt states that she is supposed to be on Oxygen at home but states her concentrator is broke. SW informed pt that she will need to call her Oxygen company and let them know her concentrator is broke. Pt states that her aide tried calling the Oxygen company but states she was told they are out of business now. SW asked if it was [employer] and pt states it was. Pt states she is not sure who her Oxygen company is now. Pt states she is supposed to be on Oxygen all the time. SW informed pt that this worker will update RN. Pt states that before she came to the hospital the last time, she had an nurse from [facility] come to her home and check her oxygen. Pt states they need a new order. SW informed pt that this worker can see about getting an order for HHC for RN again. Pt agreeable, states she only needs RN not PT/OT. Pt agreeable to referral being sent to [facility] again for RN. TOYIN provided pt with resources including [employer], Private Duty List, and HHC. Pt states she cannot read them. SW informed pt that maybe her aide could assist with reading information to pt. TOYIN updated EDA Rebollar. EDA states pt is 96% regarding Oxygen. EDA Rebollar agreeable to HHC order for RN. TOYIN placed HHC order. TOYIN placed a call to [facility] and spoke with covering CM. TOYIN updated that pt has [employer] button through [employer], 8 hours aide services through [employer], and 7 Meals on Wheels through [employer]. TOYIN updated CM that pt is requesting a third day for aide services. Covering states she will make a note. TOYIN updated that pt's [facility] CM is looking for a waiver RN for pt and a referral was sen out but nothing set up yet. TOYIN updated that [facility]PS has been involved. Nurse had charted that pt may need new order for Oxygen and states pt is on Oxygen PRN and that was charted on the that they may need new Oxygen Script from pt's PCP. TYOIN placed a call to [facility] and left message regarding referral. TOYIN faxed referral to [facility]. TOYIN called Hudson at [facility] and left message updating her on pt's admission to [facility] Nasreen Lieberman PUBLIC POLICY COORDINATOR, CORE OVEN TENDER
--- NOTE | 2022-05-27 16:15 | CM.ED ---
TOYIN advised that patient has a director of casework department at [facility]. TOYIN reviewed chart and noted that patient's Motion Picture Director is Mckayla Craft. Mckayla's contact number is [phone]. TOYIN called Mckayla and left voice mail that patient was admitted on 05/26/22 with CHF. Radha KELLY
== END 2022-02-23 16:23 | disposition home or self-care (01) ==
PROVIDERS: Emergency Provider Emergency Medicine; PCP Family Medicine; Visit Provider Emergency Medicine
DX: M25.551 Pain in right hip (principal); F03.90 Unspecified dementia, unspecified severity, without behavioral disturbance, psychotic disturbance, mood disturbance, and anxiety; J44.9 Chronic obstructive pulmonary disease, unspecified; I48.0 Paroxysmal atrial fibrillation; E11.9 Type 2 diabetes mellitus without complications; M54.50 Low back pain, unspecified; I25.2 Old myocardial infarction; H54.8 Legal blindness, as defined in USA; Z85.3 Personal history of malignant neoplasm of breast; I10 Essential (primary) hypertension; E78.5 Hyperlipidemia, unspecified; I25.10 Atherosclerotic heart disease of native coronary artery without angina pectoris; Z87.891 Personal history of nicotine dependence; I25.5 Ischemic cardiomyopathy; E03.9 Hypothyroidism, unspecified; Z95.810 Presence of automatic (implantable) cardiac defibrillator; K76.0 Fatty (change of) liver, not elsewhere classified; I34.0 Nonrheumatic mitral (valve) insufficiency; Z79.899 Other long term (current) drug therapy; Z79.82 Long term (current) use of aspirin; D64.9 Anemia, unspecified; W19.XXXA Unspecified fall, initial encounter; M16.11 Unilateral primary osteoarthritis, right hip; Z91.81 History of falling; Z87.440 Personal history of urinary (tract) infections
CPT/HCPCS: 72100; 73502; 99285

== ENCOUNTER 2022-05-26 08:16 | Inpatient (IN) | payer MEDICARE, MEDICAID, SELFPAY ==
[2022-05-26] VITALS (20 sets, daily range): BP systolic 125–166; BP diastolic 49–89; PULSE 62–100; RESP 16–32; TEMP 35.9–36.8; O2SAT 90–97; BMI 24.2; BMI 23.3
--- NOTE | 2022-05-26 08:49 | ED.VIS.DYS ---
HPI History of Present Illness Chief Complaint: Shortness of Breath Narrative Narrative: Patient brought in from EMS from home for worsening dyspnea this morning. Patient history of COPD no home oxygen. No history of home CPAP. Reported this morning worsening shortness of breath denies recent cough. Remote tobacco. Found to have a pulse ox of 81% stating she has trouble breathing. Denies history of blood clots. Patient was placed on 3 L of oxygen brought to the emergency department. History of cardiomyopathy with an AICD followed by Dr. Rojas. Denies leg swelling. Denies fevers. Denies vomiting or diarrhea. [facility] Medical History Acute RI, inferoposterior wall, subsequent episode of care Anemia Angina pectoris Atherosclerotic heart disease of [place] coronary artery without angina pectoris Atrial fibrillation Blindness of both eyes Body mass index (bmi) 26.0-26.9, adult Breast cancer Cancer COPD (chronic obstructive pulmonary disease) Debility Dementia Diabetes mellitus Elevated troponin Essential hypertension Former smoker Hepatic insufficiency History of diabetes mellitus History of RI (myocardial infarction) History of steroid therapy HLD (hyperlipidemia) HTN (hypertension) Hypothyroidism Implantable cardioverter-defibrillator (ICD) in situ Irregular heart beat Ischemic cardiomyopathy Monomorphic ventricular tachycardia Non-ST elevation (NSTEMI) myocardial infarction Nonalcoholic hepatosteatosis Nonrheumatic mitral valve regurgitation Nonrheumatic tricuspid (valve) insufficiency Old myocardial infarction Pacemaker Palpitations Paroxysmal a-fib Paroxysmal SVT (supraventricular tachycardia) Pre-syncope Presence of biventricular automatic cardioverter/defibrillator (AICD) Restless legs Right leg pain Sciatica Shortness of breath Shortness of breath Syncope Ventricular tachyarrhythmia Ventricular tachycardia (paroxysmal) Wears hearing aid in both ears Home Medications duloxetine 60 mg capsule,delayed release 60 mg PO DAILY depression 03/24/16 [History Last Taken 11/28/18] levothyroxine 75 mcg tablet 50 mcg PO DAILY thyroid 03/24/16 [History Last Taken 11/28/18] cholecalciferol (vitamin D3) 1,250 mcg (50,000 unit) capsule 50,000 unit PO MO supplement 09/18/16 [History Last Taken 11/25/18] donepezil 5 mg tablet (Aricept) 5 mg PO QHS memory 10/11/18 [History Last Taken 11/28/18] trazodone 50 mg tablet 50 mg PO QHS sleep 10/11/18 [History Last Taken 11/27/18] aspirin 81 mg tablet,delayed release 81 mg PO DAILY heart health 11/28/18 [History Last Taken 11/28/18] amlodipine 5 mg tablet 5 mg PO DAILY bp #0 tabs 11/25/21 [Rx Last Taken 11/28/18] bumetanide 0.5 mg tablet 0.5 mg PO BIDCM edema #0 tabs 11/25/21 [Rx Last Taken 11/28/18] isosorbide mononitrate 120 mg tablet,extended release 24 hr 60 mg PO DAILY htn #0 tabs 11/25/21 [Rx Last Taken 11/28/18] hydroxyzine pamoate 25 mg capsule (Vistaril) 25 mg PO BID PRN Anxiety 12/16/21 [History Last Taken Unknown] magnesium 200 mg tablet 400 mg PO BID Supplement 12/16/21 [History Last Taken Unknown] pregabalin 50 mg capsule (Lyrica) 50 mg PO BID Nerve pain 12/16/21 [History Last Taken Unknown] fenofibrate 160 mg tablet 160 mg PO DAILY Cholesterol 01/08/22 [History Last Taken Unknown] ferrous sulfate 325 mg (65 mg iron) tablet (FeroSul) 325 mg PO TUTHFR Supplement 01/08/22 [History Last Taken Unknown] metoprolol tartrate 50 mg tablet 50 mg PO BID BP 01/08/22 [History Last Taken Unknown] pantoprazole 40 mg tablet,delayed release (Protonix) 40 mg PO BID GERD 01/08/22 [History Last Taken Unknown] pravastatin 40 mg tablet 40 mg PO QHS Cholesterol 01/08/22 [History Last Taken Unknown] spironolactone 25 mg tablet 25 mg PO DAILY Water pill 01/08/22 [History Last Taken Unknown] acetaminophen 500 mg tablet 1,000 mg PO Q8 #0 tabs 01/11/22 [Rx Last Taken Unknown] hydrocodone-acetaminophen 5-325mg 5mg-325mg 1 tab PO Q4H PRN Pain 02/23/22 [History Last Taken Unknown] melatonin 10 mg tablet 10 mg PO QHS Sleep 02/23/22 [History Last Taken Unknown] minerals 1 tab PO BID Supplement 02/23/22 [History Last Taken Unknown] vit C 250 mg-vit E 90 mg-zinc 40 mg-copper 1 [id number] capsule (PreserVision AREDS-2) 1 tab PO BID Supplement 02/23/22 [History Last Taken Unknown] insulin glargine 100 unit/mL (3 mL) subcutaneous pen (Lantus Solostar U-100 Insulin) 18 unit subcut QHS Diabetes 05/26/22 [History Last Taken Unknown] Allergy/AdvReac Type Severity Reaction Status Date / Time No Known Allergies Allergy Verified 02/23/22 13:22 Family History Son Asthma Father Cancer Mother Cancer Brother Cancer Surgical History Aortocoronary bypass status (~12/08/02) History of coronary artery stent placement History of mastectomy Postsurgical percutaneous transluminal coronary angioplasty (PTCA) status Presence of stent in coronary artery (~11/30/01) S/P implantation of automatic cardioverter/defibrillator (AICD) Social History household members: none Smoking Status: Former smoker alcohol intake: never substance use type: does not use ROS ROS ED Constitutional Constitutional ED: Denies chills, fever(s) or sweats Eyes Eyes: Denies change in vision ENT ENT ED: Denies dysphagia or sore throat Cardiovascular Cardiovascular: Denies chest pain, leg edema, palpitations or racing heartbeat Respiratory/Chest Respiratory/Chest: Reports dyspnea; Denies cough or dyspnea on exertion Gastrointestinal Gastrointestinal: Denies abdominal pain, diarrhea, nausea or vomiting Genitourinary Genitourinary ED: Denies dysuria, hematuria or urinary frequency Musculoskeletal Musculoskeletal: Denies back pain, extremity pain or neck pain Integumentary Denies rash or wounds Neurologic Neurologic: Denies headache(s), paresthesias or weakness EXAM Physical Exam Const Vital Signs: 05/26/22 08:18 05/26/22 08:23 05/26/22 08:24 Temperature 97.3 F L 97.3 F L Temperature Source Temporal Temporal Pulse Rate 100 100 Respiratory Rate 32 H 32 H Respiratory Effort Short of Breath Labored Respiratory Pattern Tachypnea Blood Pressure 160/82 H 160/82 H Blood Pressure Mean 108 108 Pulse Ox 95 95 Oxygen Delivery Method Nasal Cannula Nasal Cannula Nasal Cannula Oxygen Flow Rate (L/min) 4 3 05/26/22 08:48 05/26/22 09:16 05/26/22 09:48 Temperature 97.5 F L Temperature Source Temporal Pulse Rate 83 87 Respiratory Rate 24 H 31 H Respiratory Effort Respiratory Pattern Tachypnea Blood Pressure 153/67 H Blood Pressure Mean 95 Pulse Ox 95 Oxygen Delivery Method Nasal Cannula Nasal Cannula Oxygen Flow Rate (L/min) 3 2 05/26/22 09:30 05/26/22 10:00 05/26/22 10:00 Temperature 97.1 F L Temperature Source Temporal Pulse Rate 86 87 87 Respiratory Rate 31 H 30 H 30 H Respiratory Effort Respiratory Pattern Blood Pressure 153/67 H 164/71 H 164/71 H Blood Pressure Mean 95 102 102 Pulse Ox 95 95 95 Oxygen Delivery Method Nasal Cannula Nasal Cannula Nasal Cannula Oxygen Flow Rate (L/min) 2 2 2 Constitutional Narrative: 3 L nasal cannula speaking in short sentences, General Appearance ED: NAD HEENT Reports moist mucous membranes normocephalic and atraumatic Eyes PERRL, EOMs intact bilaterally and conjunctivae normal General Eye ED: Yes normal appearance of both eyes Neck no lymphadenopathy and supple General: Negative for tenderness Chest Wall Chest: Negative for tenderness Resp Resp Narrative: No wheezing, diminished breath sounds all 4 areas of the lung, slightly labored. Effort and Inspection: symmetric chest movement and respiratory distress Cardio regular rate, regular rhythm and no murmurs Peripheral Pulses: pulses 2+ throughout GI normal to inspection, nondistended, normoactive bowel sounds and non-tender Palpation: Negative for guarding or rebound tenderness present Back/Spine no CVA tenderness and no thoracic nor lumbar tenderness Extremity normal to inspection General Extremety ED: Negative for edema or tenderness General Extremity: Negative for edema Neuro oriented x3 and no sensory deficits noted Sensorium / Orientation: awake and alert Skin no rashes or lesions noted and no wounds MDM MDM MDM Narrative Medical decision making narrative: Patient heart rate 100 tachypnea, meeting SIRS criteria. Sepsis labs ordered. EKG chronic ST depressions, denies chest or abdominal pain. Patient increasing work of breathing diminished breath sounds, aerosol treatments were ordered. 0925: Stable on 3 L improving clinically with breathing treatment. White count returned at 21.9 hemoglobin 13.6. Creatinine 0.89. Potassium 3.5. Troponin 44. ABG reviewed from respiratory therapy pH 7.4 CO2 38, PaO2 was 40 however could be a mix venous arterial. Chest x-ray 1 view reviewed myself read by radiology notes AICD right lower chest concerns for vascular congestion. 1055: Patient breathing better after breathing treatment, no respiratory distress. CT angiogram due to unexplained hypoxia with no leg swelling. No PE bilateral pleural effusions BNP 1500 similar to her previous BMP. I ordered for 40 of IV Lasix. She has a white count of 22 her urine was negative there is no pneumonia on imagings. With a leukocytosis blood cultures are pending Zosyn vancomycin was ordered for coverage for infection. I spoke with hospitalist Dr. Weaver for admission to PCU. Lab Data Attestation: I reviewed the patient's lab results. Labs: Laboratory Results - last 24 hr 05/26/22 05/26/22 05/26/22 08:30 08:30 08:30 WBC 21.9 H RBC 3.57 L Hgb 13.6 Hct 40.7 MCV 114.0 H MCH 38.1 H MCHC 33.4 RDW Std Deviation 66.4 H RDW Coeff of Ella 15.5 H Plt Count 237 MPV 13.0 H Immature Gran % (Auto) 0.800 Neut % (Auto) 80.0 H Lymph % (Auto) 9.6 L Bea[place]gard % (Auto) 7.5 Eos % (Auto) 1.5 Baso % (Auto) 0.6 Absolute Neuts (auto) 17.5 H Absolute Lymphs (auto) 2.10 Nucleated RBC % 0.1 Differential Comment Diff Path Review May foll Platelet Estimate ADEQUATE RBC Morphology N CHROM Anisocytosis 1+ PT 14.3 INR 1.1 APTT 30.5 Sodium 141 Potassium 3.5 Chloride 105 Carbon Dioxide 30.0 Anion Gap 6 BUN 16 Creatinine 0.89 Estim Creat Clear Calc 43.53 Est GFR (MDRD) Af Amer 79 Est GFR (MDRD) Non-Af 65 BUN/Creatinine Ratio 18.0 Glucose 134 H Lactic Acid Calcium 9.1 Total Bilirubin 1.20 H AST 30 ALT 19 Alkaline Phosphatase 47 Troponin I High Sens 44 B-Natriuretic Peptide Total Protein 7.9 Albumin 4.0 Globulin 3.9 Albumin/Globulin Ratio 1.0 Urine Color Urine Clarity Urine pH Ur Specific [place] Urine Protein Urine Glucose (UA) Urine Ketones Urine Occult Blood Urine Nitrite Urine Bilirubin Urine Urobilinogen Ur Leukocyte Esterase Urine RBC Urine WBC Ur Squamous Epith Cells Urine Bacteria Urine Mucus 05/26/22 05/26/22 05/26/22 08:30 08:30 10:15 WBC RBC Hgb Hct MCV MCH MCHC RDW Std Deviation RDW Coeff of Ella Plt Count MPV Immature Gran % (Auto) Neut % (Auto) Lymph % (Auto) Bea[place]gard % (Auto) Eos % (Auto) Baso % (Auto) Absolute Neuts (auto) Absolute Lymphs (auto) Nucleated RBC % Differential Comment Diff Path Review Platelet Estimate RBC Morphology Anisocytosis PT INR APTT Sodium Potassium Chloride Carbon Dioxide Anion Gap BUN Creatinine Estim Creat Clear Calc Est GFR (MDRD) Af Amer Est GFR (MDRD) Non-Af BUN/Creatinine Ratio Glucose Lactic Acid 2.0 Calcium Total Bilirubin AST ALT Alkaline Phosphatase Troponin I High Sens B-Natriuretic Peptide 1559.3 H Total Protein Albumin Globulin Albumin/Globulin Ratio Urine Color Yellow Urine Clarity Clear Urine pH 5.0 Ur Specific [place] 1.015 Urine Protein Negative Urine Glucose (UA) Normal Urine Ketones Negative Urine Occult Blood Negative Urine Nitrite Negative Urine Bilirubin Negative Urine Urobilinogen Normal Ur Leukocyte Esterase Negative Urine RBC 0 SEEN Urine WBC 0 SEEN Ur Squamous Epith Cells 0 SEEN Urine Bacteria 0 SEEN Urine Mucus 0 SEEN ABG Data ABG results: ABG 05/26/22 09:19 Specimen Type ART Sample Site L Radial pH 7.45 Bicarbonate Actual 27.1 H Total CO2 28 Base Excess 3 H O2 Saturation 80 L ABG pCO2 38.8 ABG pO2 42 L Berry Test Positive O2 Delivery Device Cannula Liter Flow 2.0 Radiography Diagnostic Testing: Clinical Impression(s) from Imaging Studies Chest X-Ray 05/26/22 09:21 IMPRESSION: Vascular congestion and mild CHF. Electronically Signed: Sal Hui MD at 9:47 EDT , Chest CTA 05/26/22 09:29 IMPRESSION: Findings suggestive of a mild degree of CHF with small bilateral pleural effusions and bibasilar dependent atelectasis. Prior CABG. Cardiomegaly. Almost complete collapse of a mid dorsal vertebrae. Electronically Signed: Sal Hui MD at 10:45 EDT , EKG Initial EKG: Attestation: I personally reviewed and interpreted this EKG as follows: Comments: Sinus rhythm 100, ST depressions lateral leads, no elevations. PVCs noted. No T wave changes. Similar EKG findings from December 2021. Discharge Plan Dx/Rx/DC Orders Clinical Impression: Acute exacerbation of CHF (congestive heart failure), Leukocytosis, Hypoxia, History of COPD Disposition Disposition: Acute Care [facility] Discharge Date/Time: 05/26/22 11:37
[2022-05-26 09:10] LABS: Absolute Neutrophil Count 17.5 X10^3/uL (2.0-7.7); Basophil# 0.14 X10^3/uL; Basophil% 0.6 % (0-1); Eosinophil# 0.33 X10^3/uL; Eosinophils% 1.5 % (0-5); Hematocrit 40.7 % (37-47); Hemoglobin 13.6 g/dL (12.0-15.0); International Normalized Ratio 1.1; Lymphocyte % 9.6 % (19-41); Mean Corp Hgb Conc 33.4 g/dL (32-36); Mean Corpuscular Hgb 38.1 pg (27.0-32.0); Monocyte# 1.65 X10^3/uL; Monocyte% 7.5 % (0-10); NRBC Flagged by Analyzer 0.1 % (0-5); Neutrophil # 17.48 X10^3/uL (2.7-7.7); POSITIVE DIFFERENTIAL YES; POSITIVE MORPHOLOGY YES; Platelet Count 237 K/mm3 (150-450); Prothrombin Time (Protime)PT. 14.3 SECONDS (11.7-14.9); RBC Distribution Width CV 15.5 % (11.6-14.6); RBC Distribution Width SD 66.4 fl (35.1-43.9); Red Blood Count 3.57 M/mm3 (4.2-5.4); White Blood Count 21.9 K/mm3 (4.4-11.0)
[2022-05-26 09:11] LABS: Partial Thromboplast Time 30.5 Seconds (24.1-36.2)
[2022-05-26 09:15] LABS: Differential Indicated SCAN CRITERIA MET
[2022-05-26 09:16] LABS: AST(SGOT) 30 U/L (15-37); Alanine Aminotransfer ALT/SGPT 19 U/L (13-56); Alkaline Phosphatase 47 U/L (45-117); Anion Gap 6 (5-15); BUN 16 mg/dL (7-18); Calcium,Total 9.1 mg/dL (8.5-10.1); Chloride 105 mmol/L (98-107); Creatinine, Serum 0.89 mg/dL (0.55-1.02); EST Glomerular Filtration Rate 65 mL/min (>60); Est Glom Filt Rate - Afr Amer 79 mL/min (>60); Estimated Creatinine Clearance 43.53 ml/min; Globulin 3.9 g/dL (2.2-4.2); Glucose 134 mg/dL (74-106); Potassium 3.5 mmol/L (3.5-5.1); Protein, Total 7.9 g/dL (6.4-8.2); Sodium Level 141 mmol/L (136-145); Troponin-I HS 44 pg/mL (3.0-54.0)
[2022-05-26] MEDS: Ipratropium/Albuterol Sulfate 3 ML AMPUL.NEB INHALATION ×3 (09:16→19:24)
--- NOTE | 2022-05-26 09:21 | RAD_ITS ---
STUDY: X-RAY CHEST REASON FOR EXAM: Female, 81 years old. Shortness of breath. TECHNIQUE: Single AP portable view of the chest. COMPARISON: Comparison is made with prior study dated 01/08/2022. FINDINGS: EKG electrodes are seen. There is a mild degree of vascular congestion and CHF. There is blunting of both costophrenic angles. Sternal cerclage wires and vascular clips are present from a prior sternotomy and coronary artery bypass graft procedure (CABG). A right-sided unipolar pacemaker is seen. There is calcification of the mitral valve annulus. Normal mediastinum and devonte. Normal visualized pulmonary arteries. There is atherosclerotic calcification of the aortic arch with tortuosity. Normal visualized thoracic spine. There is degenerative osteoarthritis of the bilateral shoulders. There is no demonstrated abnormality of the visualized soft tissue structures of the upper abdomen. RAD/Chest 1 View (Portable) IMPRESSION: Vascular congestion and mild CHF. Electronically Signed: Sal Hui MD at 9:47 EDT ,
[2022-05-26 09:26] LABS: Allen Test Positive; Base Excess 3 mmol/L (-2 to +2); Bicarbonate 27.1 mmol/L (22-26); Blood Gas Specimen Type ART; O2 Delivery Device Cannula; PO2 42 mmHG (75-100); SITE L Radial; SO2 80 % (95-99); Total Carbon Dioxide 28 mmol/L; pCO2 38.8 mmHg (35-45); pH 7.45 (7.35-7.45)
--- NOTE | 2022-05-26 09:29 | CT_ITS ---
STUDY: CTA CHEST REASON FOR EXAM: Female, 81 years old. Hypoxia. COPD. Emphysema. RADIATION DOSAGE (If Supplied By Facility): CTDIvol = ( 9.85 ) mGy, DLP = ( 339.22 ) mGycm TECHNIQUE: The examination was performed with the intravenous administration of IV 100mL [id number]-[id number]. Post-processing of the angiographic images was performed, with multiplanar reformation and 3D reconstruction. Individualized dose optimization techniques were used for this CT. COMPARISON: Comparison is made with prior chest radiograph done earlier in the day. FINDINGS: Normal enhancement of the main pulmonary artery and right and left pulmonary arteries. Normal enhancement of the bilateral peripheral pulmonary arteries. There is no demonstrated pulmonary embolism. There is atherosclerotic calcification of the aortic arch with tortuosity. There is no demonstrated aortic dissection. Sternal cerclage wires and vascular clips are present from a prior sternotomy and coronary artery bypass graft procedure (CABG). There are calcifications of the coronary arteries. Cardiomegaly with enlargement of the left atrium. A right-sided unipolar pacemaker is seen. Mild degree of posterior pericardial fluid. There are visualized mediastinal lymph nodes, which are within normal size limits, and with normal morphology. Normal hilar regions. Normal visualized trachea and bronchi. There are small bilateral pleural effusions with bibasilar compressive atelectasis increased interstitial markings more prominent at the lung bases. Mild degree of CHF should be ruled out. Normal chest wall structures. Increased thoracic kyphosis. There is complete collapse of the mid dorsal vertebrae. CT/CTA Chest W/WO Contrast IMPRESSION: Findings suggestive of a mild degree of CHF with small bilateral pleural effusions and bibasilar dependent atelectasis. Prior CABG. Cardiomegaly. Almost complete collapse of a mid dorsal vertebrae. Electronically Signed: Sal Hui MD at 10:45 EDT ,
[2022-05-26 09:48] LABS: Anisocytosis 1+; Platelet Estimate ADEQUATE (ADEQ); Red Cell Morphology N CHROM NORMAL (NORM C&C)
--- NOTE | 2022-05-26 09:49 | ED.RN ---
LACTIC ACID 2. DR [place]
[2022-05-26 09:56] LABS: BNP,B-Type NATRIURETIC PEPTIDE 1559.3 pg/mL (0-100)
[2022-05-26 10:20] LABS: Bacteria 0 SEEN /hpf (None Seen); Mucous, Urine 0 SEEN /hpf (<or=2+); Red Blood Cells-Urine 0 SEEN /hpf (0-5); Squamous Epithelial Cells - UA 0 SEEN /hpf (5-10); White Blood Cells 0 SEEN /hpf (0-5)
[2022-05-26 10:24] LABS: Color, Urine Yellow (Yellow); Glucose, Dipstick Normal (Normal); Ketone-Dipstick Negative (Negative); Leukocyte Esterase-Dipstick Negative /ul (Negative); Nitrite-Dipstick Negative (Negative); Occult Blood-Urine Negative /ul (Negative); Protein-Dipstick Negative (Negative); Specific Gravity, Urine 1.015 (1.002-1.030); Urine Bilirubin Dipstick Negative (Negative); Urine Clarity Clear (Clear); Urine Urobilinogen Normal (Normal)
[2022-05-26] MEDS: Furosemide 40 MG/4 ML Vial IV ×3 (10:59→21:58)
--- NOTE | 2022-05-26 11:16 | PCM.HP.STD ---
[facility] - General General Date of Admission: 05/26/22 Date of Service: 05/26/22 Chief Complaint: Shortness of breath HPI Narrative KATEY CROSS, is a 81 F with complicated past medical history including ischemic cardiomyopathy with EF of 25% status post AICD placement who presented with shortness of breath. Patient symptoms started on the morning of her admission. Per patient woke up unable to breathe. Patient also did complain of a nonproductive cough. She did not notice any swelling involving her lower extremities. Denied any subjective fever no chills. In view of worsening symptoms patient apparently called the EMS squad. Patient was found to be significantly dyspneic at rest with oxygen saturation in the low 80s when the EMS arrived. Was placed on supplemental oxygen and transferred to the emergency department. Assessment in the ED consistent with CHF admitted to a monitored bed for further management [facility] Medical History Acute OH, inferoposterior wall, subsequent episode of care Anemia Angina pectoris Atherosclerotic heart disease of [place] coronary artery without angina pectoris Atrial fibrillation Blindness of both eyes Body mass index (bmi) 26.0-26.9, adult Breast cancer Cancer COPD (chronic obstructive pulmonary disease) Debility Dementia Diabetes mellitus Elevated troponin Essential hypertension Former smoker Hepatic insufficiency History of diabetes mellitus History of OH (myocardial infarction) History of steroid therapy HLD (hyperlipidemia) HTN (hypertension) Hypothyroidism Implantable cardioverter-defibrillator (ICD) in situ Irregular heart beat Ischemic cardiomyopathy Monomorphic ventricular tachycardia Non-ST elevation (NSTEMI) myocardial infarction Nonalcoholic hepatosteatosis Nonrheumatic mitral valve regurgitation Nonrheumatic tricuspid (valve) insufficiency Old myocardial infarction Pacemaker Palpitations Paroxysmal a-fib Paroxysmal SVT (supraventricular tachycardia) Pre-syncope Presence of biventricular automatic cardioverter/defibrillator (AICD) Restless legs Right leg pain Sciatica Shortness of breath Shortness of breath Syncope Ventricular tachyarrhythmia Ventricular tachycardia (paroxysmal) Wears hearing aid in both ears Home Medications duloxetine 60 mg capsule,delayed release 60 mg PO DAILY depression 03/24/16 [History Last Taken 11/28/18] levothyroxine 75 mcg tablet 25 mcg PO DAILY thyroid 03/24/16 [History Last Taken 11/28/18] cholecalciferol (vitamin D3) 1,250 mcg (50,000 unit) capsule 50,000 unit PO MO supplement 09/18/16 [History Last Taken 11/25/18] donepezil 5 mg tablet (Aricept) 5 mg PO QHS memory 10/11/18 [History Last Taken 11/28/18] trazodone 50 mg tablet 50 mg PO QHS sleep 10/11/18 [History Last Taken 11/27/18] aspirin 81 mg tablet,delayed release 81 mg PO DAILY heart health 11/28/18 [History Last Taken 11/28/18] amlodipine 5 mg tablet 5 mg PO DAILY bp #0 tabs 11/25/21 [Rx Last Taken 11/28/18] bumetanide 0.5 mg tablet 0.5 mg PO BIDCM edema #0 tabs 11/25/21 [Rx Last Taken 11/28/18] isosorbide mononitrate 120 mg tablet,extended release 24 hr 60 mg PO DAILY htn #0 tabs 11/25/21 [Rx Last Taken 11/28/18] hydroxyzine pamoate 25 mg capsule (Vistaril) 25 mg PO BID PRN Anxiety 12/16/21 [History Last Taken Unknown] magnesium 200 mg tablet 400 mg PO BID Check with primary doctor 12/16/21 [History Last Taken Unknown] pregabalin 50 mg capsule (Lyrica) 50 mg PO BID Check with primary doctor 12/16/21 [History Last Taken Unknown] fenofibrate 160 mg tablet 160 mg PO DAILY Check with primary doctor 01/08/22 [History Last Taken Unknown] ferrous sulfate 325 mg (65 mg iron) tablet (FeroSul) 325 mg PO TUTHFR Check with primary doctor 01/08/22 [History Last Taken Unknown] metoprolol tartrate 50 mg tablet 50 mg PO BID Check with primary doctor 01/08/22 [History Last Taken Unknown] pantoprazole 40 mg tablet,delayed release (Protonix) 40 mg PO BID Check with primary doctor 01/08/22 [History Last Taken Unknown] pravastatin 40 mg tablet 40 mg PO QHS Check with primary doctor 01/08/22 [History Last Taken Unknown] spironolactone 25 mg tablet 25 mg PO DAILY Check with primary doctor 01/08/22 [History Last Taken Unknown] acetaminophen 500 mg tablet 1,000 mg PO Q8 #0 tabs 01/11/22 [Rx Last Taken Unknown] hydrocodone-acetaminophen 5-325mg 5mg-325mg 1 tab PO Q4H PRN Pain 02/23/22 [History Last Taken Unknown] melatonin 10 mg tablet 10 mg PO QHS 02/23/22 [History Last Taken Unknown] minerals 1 tab PO DAILY 02/23/22 [History Last Taken Unknown] vit C 250 mg-vit E 90 mg-zinc 40 mg-copper 1 [id number] capsule (PreserVision AREDS-2) 1 tab PO BID 02/23/22 [History Last Taken Unknown] Allergy/AdvReac Type Severity Reaction Status Date / Time No Known Allergies Allergy Verified 02/23/22 13:22 Family History Son Asthma Father Cancer Mother Cancer Brother Cancer Surgical History Aortocoronary bypass status (~12/08/02) History of coronary artery stent placement History of mastectomy Postsurgical percutaneous transluminal coronary angioplasty (PTCA) status Presence of stent in coronary artery (~11/30/01) S/P implantation of automatic cardioverter/defibrillator (AICD) Social History household members: none Smoking Status: Former smoker alcohol intake: never substance use type: does not use ROS ROS Narrative GENERAL: denies fever, chills, night sweats, weight loss, anorexia HEENT: denies headache, sinus congestion, or drainage, dysphagia RESPIRATORY: cough, shortness of breath, dyspnea on exertion CARDIAC: denies chest pain, palpitations, orthopnea, PND GASTROINTESTINAL: denies abdominal pain, nausea, vomiting, melena, GENITOURINARY: denies dysuria, urgency, frequency, heamaturia EXTREMITY: denies swelling MUSCULOSKELETAL: denies current joint pain or tenderness NEUROLOGIC: denies focal numbness, weakness, tingling HEMATOLOGIC: denies easy bruising and/or hemorrhage INTEGUMENT: denies rashes PSYCHIATRIC: denies suicidal or homicidal ideation Vital Signs Vital Signs Vital Signs: 05/26/22 08:18 05/26/22 08:23 05/26/22 08:24 Temperature 97.3 F L 97.3 F L Temperature Source Temporal Temporal Pulse Rate 100 100 Respiratory Rate 32 H 32 H Respiratory Effort Short of Breath Labored Respiratory Pattern Tachypnea Blood Pressure 160/82 H 160/82 H Blood Pressure Mean 108 108 Pulse Ox 95 95 Oxygen Delivery Method Nasal Cannula Nasal Cannula Nasal Cannula Oxygen Flow Rate (L/min) 4 3 05/26/22 08:48 05/26/22 09:16 05/26/22 09:48 Temperature 97.5 F L Temperature Source Temporal Pulse Rate 83 87 Respiratory Rate 24 H 31 H Respiratory Effort Respiratory Pattern Tachypnea Blood Pressure 153/67 H Blood Pressure Mean 95 Pulse Ox 95 Oxygen Delivery Method Nasal Cannula Nasal Cannula Oxygen Flow Rate (L/min) 3 2 05/26/22 09:30 05/26/22 10:00 05/26/22 10:00 Temperature 97.1 F L Temperature Source Temporal Pulse Rate 86 87 87 Respiratory Rate 31 H 30 H 30 H Respiratory Effort Respiratory Pattern Blood Pressure 153/67 H 164/71 H 164/71 H Blood Pressure Mean 95 102 102 Pulse Ox 95 95 95 Oxygen Delivery Method Nasal Cannula Nasal Cannula Nasal Cannula Oxygen Flow Rate (L/min) 2 2 2 05/26/22 11:01 05/26/22 11:01 05/26/22 11:10 Temperature 98.0 F 98.0 F Temperature Source Temporal Temporal Pulse Rate 85 85 89 Respiratory Rate 18 27 H 32 H Respiratory Effort Respiratory Pattern Blood Pressure 148/56 H 148/56 H 133/73 H Blood Pressure Mean 86 86 93 Pulse Ox 94 95 95 Oxygen Delivery Method Nasal Cannula Nasal Cannula Nasal Cannula Oxygen Flow Rate (L/min) 2 2 Weight Weight: 64 kg Body Mass Index (BMI) 24.2 Physical Exam Narrative GENERAL: [place] dyspneic at rest unable to speak in full sentences HEENT: Atraumatic; normocephalic EYES; Anicteric, Normal Conjunctiva NECK; supple, normal thyroid, RESPIRATORY: Diminished to auscultation, tachypneic with bibasilar crackles and wheezes CARDIOVASCULAR: Regular S1 S2, GI: soft, normoactive bowel sounds, : No Renal angle tenderness; EXTREMITIES: No edema, no clubbing, MUSCULOSKELETAL: no muscle wasting NEURO: Awake; no lateralizing signs. SKIN: No Rash PSYCH; Flat affect Results Lab / Micro Data Result Diagrams: 05/26/22 08:30 05/26/22 08:30 Labs: Laboratory Results - last 24 hr 05/26/22 08:30: WBC 21.9 H, RBC 3.57 L, Hgb 13.6, Hct 40.7, MCV 114.0 H, MCH 38.1 H, MCHC 33.4, RDW Std Deviation 66.4 H, RDW Coeff of Ella 15.5 H, Plt Count 237, MPV 13.0 H, Immature Gran % (Auto) 0.800, Neut % (Auto) 80.0 H, Lymph % (Auto) 9.6 L, [place] % (Auto) 7.5, Eos % (Auto) 1.5, Baso % (Auto) 0.6, Absolute Neuts (auto) 17.5 H, Absolute Lymphs (auto) 2.10, Nucleated RBC % 0.1, Differential Comment , Diff Path Review December, Platelet Estimate ADEQUATE, RBC Morphology N CHROM, Anisocytosis 1+ 05/26/22 08:30: PT 14.3, INR 1.1, APTT 30.5 05/26/22 08:30: Sodium 141, Potassium 3.5, Chloride 105, Carbon Dioxide 30.0, Anion Gap 6, BUN 16, Creatinine 0.89, Estim Creat Clear Calc 43.53, Est GFR (MDRD) Af Amer 79, Est GFR (MDRD) Non-Af 65, BUN/Creatinine Ratio 18.0, Glucose 134 H, Calcium 9.1, Total Bilirubin 1.20 H, AST 30, ALT 19, Alkaline Phosphatase 47, Troponin I High Sens 44, Total Protein 7.9, Albumin 4.0, Globulin 3.9, Albumin/Globulin Ratio 1.0 05/26/22 08:30: Lactic Acid 2.0 05/26/22 08:30: B-Natriuretic Peptide 1559.3 H 05/26/22 10:15: Urine Color Yellow, Urine Clarity Clear, Urine pH 5.0, Ur Specific Crawford 1.015, Urine Protein Negative, Urine Glucose (UA) Normal, Urine Ketones Negative, Urine Occult Blood Negative, Urine Nitrite Negative, Urine Bilirubin Negative, Urine Urobilinogen Normal, Ur Leukocyte Esterase Negative, Urine RBC 0 SEEN, Urine WBC 0 SEEN, Ur Squamous Epith Cells 0 SEEN, Urine Bacteria 0 SEEN, Urine Mucus 0 SEEN Micro: Microbiology 05/26/22 08:50 Nasal Secretion SARS-CoV-2 Antigen (Rapid) - Final ABG Data ABG results: ABG 10/07/22 09:19 Specimen Type ART Sample Site L Radial pH 7.45 Bicarbonate Actual 27.1 H Total CO2 28 Base Excess 3 H O2 Saturation 80 L ABG pCO2 38.8 ABG pO2 42 L Berry Test Positive O2 Delivery Device Cannula Liter Flow 2.0 Radiology Impression Chest X-Ray 05/26/22 09:21 IMPRESSION: Vascular congestion and mild CHF. Electronically Signed: Sal Hui MD at 9:47 EDT , Chest CTA 05/26/22 09:29 IMPRESSION: Findings suggestive of a mild degree of CHF with small bilateral pleural effusions and bibasilar dependent atelectasis. Prior CABG. Cardiomegaly. Almost complete collapse of a mid dorsal vertebrae. Electronically Signed: Sal Hui MD at 10:45 EDT , Assessment & Plan Assessment/Plan (1) Acute exacerbation of CHF (congestive heart failure): PLAN: Plan Patient is an 81-year-old lady presented with progressive shortness of breath 1. Acute hypoxic respiratory failure ? As evidenced by patient respiratory distress tachypnea (with a respiratory rate of 32), inability to speak in full sentences and patient significant hypoxia 84% on room air had to be placed on 2 L to get her oxygen saturation in the mid 90s and apparently desaturated whilst undergoing CT. Patient acute hypoxic respiratory failure secondary to acute on chronic congestive heart failure with reduced fraction. Admitted to a monitored bed for treatment of her underlying condition 2. Acute on chronic congestive heart failure with reduced ejection fraction ? Patient has a known EF of 35%. Patient has been admitted to a monitored bed being managed with strict input and output, daily weight, fluid restriction as well as IV Lasix. Patient progressed being monitored with her vitals I's and O's as well as oxygen saturation 3. Leukocytosis ? Patient does not have any evidence of infection CT of the chest did not show pneumonia urinalysis unremarkable this is most likely reactive we will continue to monitor 4. Lactic acidosis - no evidence of infection patient lactic acidosis attributed to her increased work of breathing 5. Hypokalemia ? Corrected per protocol repeat labs ordered for a.m. 6. COPD with acute exacerbation ? Patient managed with supplemental oxygen Solu-Medrol bronchodilator treatment as well as antibiotics with doxycycline 7. Ischemic cardiomyopathy with previous VTE's ? Status post AICD placement 8. Diabetes mellitus type 2 ? Currently managed with diet, placed on Accu-Cheks before meals and at bedtime with sliding scale coverage 9. Essential hypertension ? Patient blood pressure remained stable at this point did continue with home meds with plans for adjustment if needed warranted 10. Hypothyroidism - Patient is on levothyroxine home dose continued 11. GERD ? Patient is on PPI did continue 12. Dyslipidemia -Patient is on statin therapy, continued at home dose 13. Pulmonary hypertension ? Due to combination of patient chronic heart disease as well as COPD placed on supplemental oxygen 15. Paroxysmal A. fib ? Patient in sinus rhythm rate controlled currently not on any systemic anticoagulation because of previous GI bleed 16. Coronary artery disease With previous OH and subsequent CABG 17. History of breast CA ? Currently remission 18. Peripheral vascular disease ?patient is on statin therapy as well as antiplatelet therapy 19. Dementia ? Patient is on Aricept and continue 20. DVT prophylaxis ? Enoxaparin Advance planning; did discuss with the patient regarding advanced directives as well as CODE STATUS. Did explain the various scenarios involved ( FULL CODE, DNR CCA, DNR CCA with no intubation, and DNR CC and what each meant) patient elected full code with CPR and intubation if needed. Order was placed. Time spent on discussion 18 minutes. Charges/Coding Visit Charges Inpatient E&M: 56683 Init Hosp L3 Procedures Hospitalists Procedures: 74564 Advncd Care Plan 30 Min
[2022-05-26 12:20] LABS: Troponin-I HS 84 pg/mL (3.0-54.0)
[2022-05-26 12:52] LABS: Reflex Lactate? Y
--- NOTE | 2022-05-26 14:05 | SEPSISATNOTE ---
Sepsis Attestation Sepsis Attestation: Sepsis Ruled Out Date exam was performed: 05/26/22 Supportive Findings: She does not have any signs of infection
[2022-05-26 15:07] LABS: Troponin-I HS 109 pg/mL (3.0-54.0)
[2022-05-26 15:17] LABS: Lactic Acid 2.5 mmol/L (0.4-1.9)
--- NOTE | 2022-05-26 16:00 | CASEMGMT ---
Addendum entered by Anderson Gentile 05/26/22 20:29: 1615: TOYIN, Sadaf, notified pt has CM through [facility]. Addendum entered by Anderson Gentile 05/26/22 20:28: 1630: Green sheet includes [facility]. Original Note: RN CM TOOL AND DIE DESIGNER CM to room to meet with patient for initial transition planning/care coordination assessment. RN CM introduced self and role at [facility].? Pt voices understanding and consents to assessment at this time.? Pt resting in bed in no distress at this time.? Pt is A/O at this time and answers all questions appropriately.?? Care providers, pharmacy, and demographics verified/updated at this time. PCP: Dr Bradley Specialists: Dr Rojas-cardiology. Dr Collazo-oncology Preferred Pharmacy: [facility]. [facility] mail delivery--they do not deliver on the weekend. Pt states she does not have anyone who can meat pickler medications for her @ d/c. Insurance: [employer] [facility] Prescription Benefit:? Yes Living Will/HPOA:? Pt states she has LW and HPOA, who is her son, David. LNOK: Son/POADavid Living Arrangements: Lives alone in one-story home w/no steps to enter. There are 3 steps to get from parking lot to apt. Pt states she is independent w/ADL's. Pt has CM thru [facility], she does not remember her name. She has aides 8 hrs/week (4 hrs twice a week), who get groceries and do cooking and home tasks. Pt states she manages her own medications. Transportation: Through insurance. She states her son does not drive, as he is blind. DME: ?States has the following DME:? shower chair, rollator, medical alert, pulse ox. Pt states she has oxygen @ home that she got years ago from [employer], but does not use it. She states she did not switch to a different DME provider. She states when she has used the concentrator, it begins screeching after it has been on for awhile. Pt currently on O2. ?Pt was provided with list of? DME ? ? providers consistent with the patient's preferred geographic region, medical needs, and insurance network. Pt informed [facility] is affiliated w/[facility]. ? Pt states does not have a preference and states to go with [facility], if she qualifies for O2 @ d/c. HHC/SNF: [facility], [facility], and [facility]. She declines wanting therapy, stating, I don't think I need it. I have aides coming 3 times a week and I don't want more people coming in/out of my home. Pt offered list of local HHC agencies. She states she is happy w/[facility], would like to resume HHC with them when she returns home, and declines HHC list. Call placed to [facility] and spoke w/Kelly. She is aware of pt's admission to [facility]. Pt wishes to return home and states has no concerns with going home at time of discharge.? CM and nursing to follow for home oxygen needs and any further discharge planning/needs.? Pt voices no further concerns/needs at this time.? Advised pt to ask for CM if any further questions/concerns/needs arise.? Voices understanding. Pt did state she is not sure if her son is aware if she has been admitted to [facility] and would like someone to call him. RN EHSAN notified pt's RN, Alicia. PLAN: ?Home w/resumption of HHC through [facility]. Follow for possible Home O2 needs @ d/c. Green sheet on chart w/instructions. Brayden ROBLEDO RN, CM
[2022-05-26] MEDS: 0.9% Saline Lock 10 ML Syringe IV (16:43)
[2022-05-26] MEDS: Potassium Chloride 10mEq/100mL 10 MEQ/100 ML IV.SOLN. 100 MEQ IV BOLUS ×4 (16:53→20:50)
--- NOTE | 2022-05-26 18:55 | NURSING ---
Charting reviewed with Glo Camp RN
[2022-05-26] MEDS: Pantoprazole Sodium 40 MG Tablet PO (21:58)
[2022-05-26] MEDS: traZODone 50 MG Tablet PO (21:58)
[2022-05-26] MEDS: Doxycycline 100 MG CAPSULE PO (21:58)
[2022-05-26] MEDS: Pravastatin 40 MG Tablet PO (21:58)
[2022-05-26] MEDS: Insulin Lispro 100 UNIT/ML INSULN.PEN SC (21:58)
[2022-05-26] MEDS: guaiFENesin 1,200 MG Tablet 1200 MG PO (21:58)
[2022-05-26] MEDS: Metoprolol Tartrate 50 MG Tablet PO (21:58)
[2022-05-26] MEDS: Pregabalin 50 MG Capsule PO (21:58)
[2022-05-26 22:50] LABS: Bedside Glucose 284 mg/dL (74-106)
[2022-05-26] MEDS: MELATONIN 3 MG TABLET PO (23:22)
[2022-05-26] MEDS: Acetaminophen 325 MG Tablet 650 MG PO (23:22)
[2022-05-27] VITALS (19 sets, daily range): BP systolic 113–138; BP diastolic 33–71; PULSE 53–87; RESP 16–18; TEMP 35.9–36.7; O2SAT 88–99
[2022-05-27] MEDS: Levothyroxine 50 MCG Tablet PO (05:35)
[2022-05-27] MEDS: Furosemide 40 MG/4 ML Vial IV ×3 (05:35→22:08)
[2022-05-27] MEDS: 0.9% Saline Lock 10 ML Syringe IV ×2 (05:37→13:28)
[2022-05-27 05:59] LABS: Absolute Lymphocyte Count 0.66 X10^3/uL (0.83-4.51); Absolute Neutrophil Count 6.1 X10^3/uL (2.0-7.7); Basophil# 0.01 X10^3/uL; Basophil% 0.1 % (0-1); Hemoglobin 11.8 g/dL (12.0-15.0); Lymphocyte # 0.66 X10^3/ul (0.83-4.51); Lymphocyte % 9.4 % (19-41); Mean Corp Hgb Conc 34.7 g/dL (32-36); Mean Corpuscular Hgb 39.3 pg (27.0-32.0); Mean Corpuscular Volume 113.3 fL (81-99); Mean Platelet Vol. 13.1 fl (6.2-12.0); Monocyte# 0.21 X10^3/uL; NRBC Flagged by Analyzer 0 % (0-5); Neutrophil # 6.13 X10^3/uL (2.7-7.7); Neutrophil % 87.1 % (47-70); Platelet Count 172 K/mm3 (150-450); RBC Distribution Width CV 15.3 % (11.6-14.6); RBC Distribution Width SD 63.9 fl (35.1-43.9)
[2022-05-27] MEDS: Insulin Lispro 100 UNIT/ML INSULN.PEN SC ×4 (06:27→22:08)
[2022-05-27 06:48] LABS: Phosphorus 3.2 mg/dL (2.5-4.9)
[2022-05-27 06:50] LABS: Anion Gap 7 (5-15); BUN 24 mg/dL (7-18); BUN/Creat Ratio 25.8 RATIO (10-20); Calcium,Total 9.2 mg/dL (8.5-10.1); Chloride 99 mmol/L (98-107); Creatinine, Serum 0.93 mg/dL (0.55-1.02); EST Glomerular Filtration Rate 61 mL/min (>60); Est Glom Filt Rate - Afr Amer 74 mL/min (>60); Estimated Creatinine Clearance 41.66 ml/min; Glucose 182 mg/dL (74-106); Magnesium 2.1 mg/dL (1.6-2.6); Potassium 3.8 mmol/L (3.5-5.1); Sodium Level 139 mmol/L (136-145); Thyroid Stim Hormone (TSH) 2.61 uIU/mL (0.358-3.74)
[2022-05-27] MEDS: Ipratropium/Albuterol Sulfate 3 ML AMPUL.NEB INHALATION ×4 (06:50→19:06)
[2022-05-27 07:01] LABS: Bedside Glucose 167 mg/dL (74-106)
--- NOTE | 2022-05-27 07:53 | PN.HOSP_ITS ---
Subjective Subjective Patient is an 81-year-old lady admitted with acute hypoxic respiratory failure secondary to COPD exacerbation as well as CHF admitted to a monitored bed where patient is being managed. Patient had significant leukocytosis on admission but back to within normal limit. Objective Data Objective Data Vital Signs: Vital Signs Temp Pulse Resp BP Pulse Ox O2 Del Method O2 Flow Rate 97.9 F 53 L 16 121/71 H 94 Nasal Cannula 2 05/27/22 05:28 05/27/22 07:00 05/27/22 05:28 05/27/22 05:28 05/27/22 05:28 05/27/22 05:59 05/27/22 05:59 Oxygen Flow Rate (L/min) 2 Oxygen Delivery Method Nasal Cannula Weight: 61.6 kg Body Mass Index (BMI) 23.3 Intake & Output: Intake and Output for Last 24 Hours 05/25/22 05/26/22 05/27/22 23:59 23:59 23:59 Intake Total 640 / 640 Output Total 2550 / 2550 Balance -1910 / -191 Lab / Micro Data Result Diagrams: 05/27/22 04:47 05/27/22 04:47 Labs: Laboratory Results - last 24 hr 05/26/22 08:30: WBC 21.9 H, RBC 3.57 L, Hgb 13.6, Hct 40.7, MCV 114.0 H, MCH 38.1 H, MCHC 33.4, RDW Std Deviation 66.4 H, RDW Coeff of Ella 15.5 H, Plt Count 237, MPV 13.0 H, Immature Gran % (Auto) 0.800, Neut % (Auto) 80.0 H, Lymph % (Auto) 9.6 L, [place] % (Auto) 7.5, Eos % (Auto) 1.5, Baso % (Auto) 0.6, Absolute Neuts (auto) 17.5 H, Absolute Lymphs (auto) 2.10, Nucleated RBC % 0.1, Differential Comment , Diff Path Review May foll, Platelet Estimate ADEQUATE, RBC Morphology N CHROM, Anisocytosis 1+ 05/26/22 08:30: PT 14.3, INR 1.1, APTT 30.5 05/26/22 08:30: Sodium 141, Potassium 3.5, Chloride 105, Carbon Dioxide 30.0, Anion Gap 6, BUN 16, Creatinine 0.89, Estim Creat Clear Calc 43.53, Est GFR (MDRD) Af Amer 79, Est GFR (MDRD) Non-Af 65, BUN/Creatinine Ratio 18.0, Glucose 134 H, Calcium 9.1, Total Bilirubin 1.20 H, AST 30, ALT 19, Alkaline Phosphatase 47, Troponin I High Sens 44, Total Protein 7.9, Albumin 4.0, Globulin 3.9, Albumin/Globulin Ratio 1.0 05/26/22 08:30: Lactic Acid 2.0 05/26/22 08:30: B-Natriuretic Peptide 1559.3 H 05/26/22 10:15: Urine Color Yellow, Urine Clarity Clear, Urine pH 5.0, Ur Specific [place] 1.015, Urine Protein Negative, Urine Glucose (UA) Normal, Urine Ketones Negative, Urine Occult Blood Negative, Urine Nitrite Negative, Urine Bilirubin Negative, Urine Urobilinogen Normal, Ur Leukocyte Esterase Negative, Urine RBC 0 SEEN, Urine WBC 0 SEEN, Ur Squamous Epith Cells 0 SEEN, Urine Bacteria 0 SEEN, Urine Mucus 0 SEEN 05/26/22 11:45: Troponin I High Sens 84 H 05/26/22 14:35: Troponin I High Sens 109 H 05/26/22 14:35: Lactic Acid 2.5 H* 05/26/22 14:35: Magnesium 2.0 05/26/22 21:50: POC Glucose 284 H 05/27/22 04:47: WBC 7.0, RBC 3.00 L, Hgb 11.8 L, Hct 34.0 L, MCV 113.3 H, MCH 39.3 H, MCHC 34.7, RDW Std Deviation 63.9 H, RDW Coeff of Ella 15.3 H, Plt Count 172, MPV 13.1 H, Immature Gran % (Auto) 0.400, Neut % (Auto) 87.1 H, Lymph % (Auto) 9.4 L, [place] % (Auto) 3.0, Eos % (Auto) 0.0, Baso % (Auto) 0.1, Absolute Neuts (auto) 6.1, Absolute Lymphs (auto) 0.66 L, Nucleated RBC % 0 05/27/22 04:47: Sodium 139, Potassium 3.8, Chloride 99, Carbon Dioxide 33.0 H, Anion Gap 7, BUN 24 H, Creatinine 0.93, Estim Creat Clear Calc 41.66, Est GFR (MDRD) Af Amer 74, Est GFR (MDRD) Non-Af 61, BUN/Creatinine Ratio 25.8 H, Glucose 182 H, Calcium 9.2, Magnesium 2.1, TSH 2.61 05/27/22 04:47: Phosphorus 3.2 05/27/22 06:25: POC Glucose 167 H Micro: Microbiology 05/26/22 13:00 Mucosa - Nasopharyngeal Respiratory Panel (PCR) - Final 05/26/22 08:50 Nasal Secretion SARS-CoV-2 Antigen (Rapid) - Final ABG Data ABG results: ABG 05/26/22 09:19 Specimen Type ART Sample Site L Radial pH 7.45 Bicarbonate Actual 27.1 H Total CO2 28 Base Excess 3 H O2 Saturation 80 L ABG pCO2 38.8 ABG pO2 42 L Berry Test Positive O2 Delivery Device Cannula Liter Flow 2.0 Radiography Diagnostic Testing: Radiology Impression Chest X-Ray 05/26/22 09:21 IMPRESSION: Vascular congestion and mild CHF. Electronically Signed: Sal Hui MD at 9:47 EDT , Chest CTA 05/26/22 09:29 IMPRESSION: Findings suggestive of a mild degree of CHF with small bilateral pleural effusions and bibasilar dependent atelectasis. Prior CABG. Cardiomegaly. Almost complete collapse of a mid dorsal vertebrae. Electronically Signed: Sal Hui MD at 10:45 EDT , Physical Exam Narrative GENERAL: Cooperative HEENT: Atraumatic; normocephalic EYES; Anicteric, Normal Conjunctiva NECK; supple, normal thyroid, RESPIRATORY: Diminished to auscultation, with bibasilar crackles and wheezes CARDIOVASCULAR: Regular S1 S2, GI: soft, normoactive bowel sounds, : No Renal angle tenderness; EXTREMITIES: No edema, no clubbing, MUSCULOSKELETAL: no muscle wasting NEURO: Awake; no lateralizing signs. SKIN: No Rash PSYCH; Flat affect Assessment & Plan Assessment/Plan (1) Acute exacerbation of CHF (congestive heart failure): PLAN: Plan Patient is an 81-year-old lady presented with progressive shortness of breath 1. Acute hypoxic respiratory failure ? As evidenced by patient respiratory distress tachypnea (with a respiratory rate of 32), inability to speak in full sentences and patient significant hypoxia 84% on room air had to be placed on 2 L to get her oxygen saturation in the mid 90s and apparently desaturated whilst undergoing CT. Patient acute hypoxic respiratory failure secondary to acute on chronic congestive heart failure with reduced fraction. Admitted to a monitored bed for treatment of her underlying condition ? 05/27/2022; patient remains supplemental oxygen 2. Acute on chronic congestive heart failure with reduced ejection fraction ? Patient has a known EF of 35%. Patient has been admitted to a monitored bed being managed with strict input and output, daily weight, fluid restriction as well as IV Lasix. Patient progressed being monitored with her vitals I's and O's as well as oxygen saturation ? 05/27/2022; patient is net negative fluid balance of 2 L since admission 3. Leukocytosis ? Patient does not have any evidence of infection CT of the chest did not show pneumonia urinalysis unremarkable this is most likely reactive we will continue to monitor ? 05/27/2022 patient WBC count down within normal limits 4. Lactic acidosis - no evidence of infection patient lactic acidosis attributed to her increased work of breathing 5. Hypokalemia ? Corrected per protocol repeat labs ordered for a.m. 6. COPD with acute exacerbation ? Patient managed with supplemental oxygen Solu-Medrol bronchodilator treatment as well as antibiotics with doxycycline 7. Ischemic cardiomyopathy with previous VTE's ? Status post AICD placement 8. Diabetes mellitus type 2 ? Currently managed with diet, placed on Accu-Cheks before meals and at bedtime with sliding scale coverage 9. Essential hypertension ? Patient blood pressure remained stable at this point did continue with home meds with plans for adjustment if needed warranted 10. Hypothyroidism - Patient is on levothyroxine home dose continued 11. GERD ? Patient is on PPI did continue 12. Dyslipidemia -Patient is on statin therapy, continued at home dose 13. Pulmonary hypertension ? Due to combination of patient chronic heart disease as well as COPD placed on supplemental oxygen 15. Paroxysmal A. fib ? Patient in sinus rhythm rate controlled currently not on any systemic anticoagulation because of previous GI bleed 16. Coronary artery disease With previous [place] and subsequent CABG 17. History of breast CA ? Currently remission 18. Peripheral vascular disease ?patient is on statin therapy as well as antiplatelet therapy 19. Dementia ? Patient is on Aricept and continue 20. DVT prophylaxis ? Enoxaparin Charges/Coding Visit Charges Inpatient E&M: 80333 Subs Hosp L2
[2022-05-27] MEDS: Aspirin E.C. 81 MG Tablet PO (09:11)
[2022-05-27] MEDS: Fenofibrate 145 MG Tablet PO (09:12)
[2022-05-27] MEDS: Spironolactone 25 MG Tablet PO (09:12)
[2022-05-27] MEDS: Magnesium Chloride 64 MG Delay Rel.Tablet 128 MG PO (09:12)
[2022-05-27] MEDS: DULoxetine Hcl 60 MG Capsule PO (09:12)
[2022-05-27] MEDS: guaiFENesin 1,200 MG Tablet 1200 MG PO ×2 (09:12→22:09)
[2022-05-27] MEDS: Pantoprazole Sodium 40 MG Tablet PO ×2 (09:12→22:09)
[2022-05-27] MEDS: Pregabalin 50 MG Capsule PO ×2 (09:12→22:09)
[2022-05-27] MEDS: Doxycycline 100 MG CAPSULE PO ×2 (09:12→22:09)
[2022-05-27] MEDS: Enoxaparin 40 MG/0.4 ML Syringe SC (09:19)
--- NOTE | 2022-05-27 11:30 | CASEMGMT ---
DARCY MOSER NOTE: Dr Weaver notified pt does not have anyone to cigar packer and picker any new medications from a pharmacy if she discharges over the weekend. Inquired if he anticipates pt ready to discharge over the weekend if new meds could be e-scribed to [facility] before 1 PM today, so they can be delivered to pt's room so she'll have them to take home. Dr Weaver stated okay. Brayden ROBLEDO RN CM
[2022-05-27 13:25] LABS: Bedside Glucose 266 mg/dL (74-106)
[2022-05-27 16:55] LABS: Bedside Glucose 265 mg/dL (74-106)
--- NOTE | 2022-05-27 18:16 | EKG12_ITS ---
Test Reason : RHYTHM CHANGE Blood Pressure : / mmHG Vent. Rate : 081 BPM Atrial Rate : 081 BPM P-R Int : 166 ms QRS Dur : 118 ms QT Int : 428 ms P-R-T Axes : 074 044 118 degrees QTc Int : 497 ms Sinus rhythm with frequent Premature ventricular complexes Left ventricular hypertrophy with QRS widening and repolarization abnormality ( Sokolow-Abernathy , Hoang l product ) Prolonged QT Abnormal ECG When compared with ECG of 26-MAY-2022 08:57, MANUAL COMPARISON REQUIRED, DATA IS UNCONFIRMED Confirmed by DAYNA KILLIAN, COBY ([id number]), assignment editor NOEMI ROJO ([id number]) on 05/30/2022 9:26:51 AM Referred By: Confirmed By:COBY MCINTOSH MD
[2022-05-27] MEDS: Metoprolol Tartrate 50 MG Tablet PO (22:09)
[2022-05-27] MEDS: traZODone 50 MG Tablet PO (22:09)
[2022-05-27] MEDS: Pravastatin 40 MG Tablet PO (22:10)
[2022-05-27] MEDS: MELATONIN 3 MG TABLET PO (22:19)
[2022-05-27 22:36] LABS: Bedside Glucose 344 mg/dL (74-106)
[2022-05-28] VITALS (16 sets, daily range): BP systolic 113–162; BP diastolic 42–71; PULSE 56–78; RESP 16–18; TEMP 35.9–37.1; O2SAT 95–99
[2022-05-28 05:35] LABS: Absolute Lymphocyte Count 1.07 X10^3/uL (0.83-4.51); Absolute Neutrophil Count 8.9 X10^3/uL (2.0-7.7); Basophil# 0.01 X10^3/uL; Basophil% 0.1 % (0-1); Hemoglobin 11.5 g/dL (12.0-15.0); Lymphocyte # 1.07 X10^3/ul (0.83-4.51); Lymphocyte % 9.8 % (19-41); Mean Corp Hgb Conc 33.8 g/dL (32-36); Mean Corpuscular Hgb 37.7 pg (27.0-32.0); Mean Corpuscular Volume 111.5 fL (81-99); Monocyte# 0.96 X10^3/uL; Monocyte% 8.8 % (0-10); NRBC Flagged by Analyzer 0.5 % (0-5); Neutrophil # 8.87 X10^3/uL (2.7-7.7); Neutrophil % 80.8 % (47-70); Platelet Count 189 K/mm3 (150-450); RBC Distribution Width CV 14.9 % (11.6-14.6); Red Blood Count 3.05 M/mm3 (4.2-5.4)
[2022-05-28 05:52] LABS: Anion Gap 6 (5-15); BUN 39 mg/dL (7-18); BUN/Creat Ratio 35.1 RATIO (10-20); Calcium,Total 9.4 mg/dL (8.5-10.1); Chloride 98 mmol/L (98-107); Creatinine, Serum 1.11 mg/dL (0.55-1.02); EST Glomerular Filtration Rate 50 mL/min (>60); Est Glom Filt Rate - Afr Amer 61 mL/min (>60); Estimated Creatinine Clearance 34.91 ml/min; Glucose 146 mg/dL (74-106); Potassium 3.9 mmol/L (3.5-5.1); Sodium Level 138 mmol/L (136-145)
[2022-05-28] MEDS: Ipratropium/Albuterol Sulfate 3 ML AMPUL.NEB INHALATION ×4 (06:36→19:13)
[2022-05-28] MEDS: Furosemide 40 MG/4 ML Vial IV ×3 (06:49→22:11)
[2022-05-28] MEDS: Levothyroxine 50 MCG Tablet PO (06:50)
[2022-05-28] MEDS: 0.9% Saline Lock 10 ML Syringe IV ×4 (06:50→22:26)
[2022-05-28] MEDS: Insulin Lispro 100 UNIT/ML INSULN.PEN SC ×4 (06:50→22:12)
[2022-05-28 07:25] LABS: Bedside Glucose 170 mg/dL (74-106)
--- NOTE | 2022-05-28 07:38 | PN.HOSP_ITS ---
Subjective Subjective Patient seen continues to improve clinically. Did request for PT OT eval. Plan is to assess patient for possible home oxygen. Objective Data Objective Data Vital Signs: Vital Signs Temp Pulse Resp BP Pulse Ox O2 Del Method O2 Flow Rate 96.7 F L 66 18 113/42 L 95 Nasal Cannula 1 05/28/22 06:40 05/28/22 07:00 05/28/22 06:40 05/28/22 06:40 05/28/22 06:40 05/28/22 06:40 05/28/22 06:40 Oxygen Flow Rate (L/min) 1 Oxygen Delivery Method Nasal Cannula Weight: 61.4 kg Body Mass Index (BMI) 23.3 Intake & Output: Intake and Output for Last 24 Hours 05/26/22 05/27/22 05/28/22 23:59 23:59 23:59 Intake Total 640 / 640 480 / 620 140 / 140 Output Total 2550 / 2550 1050 / 2400 1750 / 1750 Balance -1910 / -1910 -570 / -1780 -1610 / -1610 Lab / Micro Data Result Diagrams: 05/28/22 05:00 05/28/22 05:00 Labs: Laboratory Results - last 24 hr 05/27/22 12:32: POC Glucose 266 H 05/27/22 16:11: POC Glucose 265 H 05/27/22 22:05: POC Glucose 344 H 05/28/22 05:00: WBC 11.0, RBC 3.05 L, Hgb 11.5 L, Hct 34.0 L, MCV 111.5 H, MCH 37.7 H, MCHC 33.8, RDW Std Deviation 61.0 H, RDW Coeff of Ella 14.9 H, Plt Count 189, MPV 13.0 H, Immature Gran % (Auto) 0.500, Neut % (Auto) 80.8 H, Lymph % (Auto) 9.8 L, [place] % (Auto) 8.8, Eos % (Auto) 0.0, Baso % (Auto) 0.1, Absolute Neuts (auto) 8.9 H, Absolute Lymphs (auto) 1.07, Nucleated RBC % 0.5 05/28/22 05:00: Sodium 138, Potassium 3.9, Chloride 98, Carbon Dioxide 34.0 H, Anion Gap 6, BUN 39 H, Creatinine 1.11 H, Estim Creat Clear Calc 34.91, Est GFR (MDRD) Af Amer 61, Est GFR (MDRD) Non-Af 50 L, BUN/Creatinine Ratio 35.1 H, Glucose 146 H, Calcium 9.4 05/28/22 06:48: POC Glucose 170 H Micro: Microbiology 05/26/22 09:20 Blood Culture (Wb) - Anticubital Left Blood Culture - Preliminary No growth in 48 hours. 05/26/22 08:30 Blood Culture (Wb) - Anticubital Left Blood Culture - Preliminary No growth in 48 hours. 05/26/22 10:15 Urine Catheter - Catheter Urine Culture - Preliminary Culture exhibits no growth. 05/26/22 13:00 Mucosa - Nasopharyngeal Respiratory Panel (PCR) - Final 05/26/22 08:50 Nasal Secretion SARS-CoV-2 Antigen (Rapid) - Final Physical Exam Narrative GENERAL: Cooperative HEENT: Atraumatic; normocephalic EYES; Anicteric, Normal Conjunctiva NECK; supple, normal thyroid, RESPIRATORY: Diminished to auscultation, with bibasilar crackles and wheezes CARDIOVASCULAR: Regular S1 S2, GI: soft, normoactive bowel sounds, : No Renal angle tenderness; EXTREMITIES: No edema, no clubbing, MUSCULOSKELETAL: no muscle wasting NEURO: Awake; no lateralizing signs. SKIN: No Rash PSYCH; Flat affect Assessment & Plan Assessment/Plan (1) Acute exacerbation of CHF (congestive heart failure): PLAN: Plan Patient is an 81-year-old lady presented with progressive shortness of breath 1. Acute hypoxic respiratory failure ? As evidenced by patient respiratory distress tachypnea (with a respiratory rate of 32), inability to speak in full sentences and patient significant hypoxia 84% on room air had to be placed on 2 L to get her oxygen saturation in the mid 90s and apparently desaturated whilst undergoing CT. Patient acute hypoxic respiratory failure secondary to acute on chronic congestive heart failure with reduced fraction. Admitted to a monitored bed for treatment of her underlying condition ? 05/27/2022; patient remains supplemental oxygen -05/28/2022 Patient seen continues to improve clinically. Did request for PT OT eval. Plan is to assess patient for possible home oxygen. 2. Acute on chronic congestive heart failure with reduced ejection fraction ? Patient has a known EF of 35%. Patient has been admitted to a monitored bed being managed with strict input and output, daily weight, fluid restriction as well as IV Lasix. Patient progressed being monitored with her vitals I's and O's as well as oxygen saturation ? 05/27/2022; patient is net negative fluid balance of 2 L since admission 3. Leukocytosis ? Patient does not have any evidence of infection CT of the chest did not show pneumonia urinalysis unremarkable this is most likely reactive we will continue to monitor ? 05/27/2022 patient WBC count down within normal limits 4. Lactic acidosis - no evidence of infection patient lactic acidosis attributed to her increased work of breathing 5. Hypokalemia ? Corrected per protocol repeat labs ordered for a.m. 6. COPD with acute exacerbation ? Patient managed with supplemental oxygen Solu-Medrol bronchodilator treatment as well as antibiotics with doxycycline 7. Ischemic cardiomyopathy with previous VTE's ? Status post AICD placement 8. Diabetes mellitus type 2 ? Currently managed with diet, placed on Accu-Cheks before meals and at bedtime with sliding scale coverage 9. Essential hypertension ? Patient blood pressure remained stable at this point did continue with home meds with plans for adjustment if needed warranted 10. Hypothyroidism - Patient is on levothyroxine home dose continued 11. GERD ? Patient is on PPI did continue 12. Dyslipidemia -Patient is on statin therapy, continued at home dose 13. Pulmonary hypertension ? Due to combination of patient chronic heart disease as well as COPD placed on supplemental oxygen 15. Paroxysmal A. fib ? Patient in sinus rhythm rate controlled currently not on any systemic anticoagulation because of previous GI bleed 16. Coronary artery disease With previous [place] and subsequent CABG 17. History of breast CA ? Currently remission 18. Peripheral vascular disease ?patient is on statin therapy as well as antiplatelet therapy 19. Dementia ? Patient is on Aricept and continue 20. DVT prophylaxis ? Enoxaparin Charges/Coding Visit Charges Inpatient E&M: 22158 Subs Hosp L2
[2022-05-28] MEDS: Metoprolol Tartrate 50 MG Tablet PO ×2 (08:13→22:10)
[2022-05-28] MEDS: guaiFENesin 1,200 MG Tablet 1200 MG PO ×2 (08:13→22:08)
[2022-05-28] MEDS: Isosorbide Mononitrate 60 MG Tablet PO (08:14)
[2022-05-28] MEDS: DULoxetine Hcl 60 MG Capsule PO (08:14)
[2022-05-28] MEDS: Pantoprazole Sodium 40 MG Tablet PO ×2 (08:14→22:09)
[2022-05-28] MEDS: Spironolactone 25 MG Tablet PO (08:14)
[2022-05-28] MEDS: Aspirin E.C. 81 MG Tablet PO (08:14)
[2022-05-28] MEDS: Fenofibrate 145 MG Tablet PO (08:14)
[2022-05-28] MEDS: predniSONE 20 MG Tablet 40 MG PO (08:14)
[2022-05-28] MEDS: Doxycycline 100 MG CAPSULE PO ×2 (08:14→22:11)
[2022-05-28] MEDS: Magnesium Chloride 64 MG Delay Rel.Tablet 128 MG PO (08:14)
[2022-05-28] MEDS: Enoxaparin 40 MG/0.4 ML Syringe SC (08:15)
[2022-05-28] MEDS: Pregabalin 50 MG Capsule PO ×2 (11:44→22:15)
[2022-05-28 12:51] LABS: Bedside Glucose 222 mg/dL (74-106)
[2022-05-28 19:06] LABS: Bedside Glucose 238 mg/dL (74-106)
[2022-05-28] MEDS: Pravastatin 40 MG Tablet PO (22:09)
[2022-05-28] MEDS: traZODone 50 MG Tablet PO (22:11)
[2022-05-28] MEDS: Insulin Glargine-YFGN 100 UNIT/ML Pen 18 UNIT SC (22:13)
[2022-05-28 22:56] LABS: Bedside Glucose 316 mg/dL (74-106)
[2022-05-29] VITALS (18 sets, daily range): BP systolic 115–132; BP diastolic 49–58; PULSE 58–84; RESP 16–18; TEMP 36.2–36.9; O2SAT 94–100
[2022-05-29 05:14] LABS: Absolute Lymphocyte Count 1.74 X10^3/uL (0.83-4.51); Absolute Neutrophil Count 8.4 X10^3/uL (2.0-7.7); Basophil# 0.02 X10^3/uL; Basophil% 0.2 % (0-1); Eosinophil# 0.04 X10^3/uL; Eosinophils% 0.4 % (0-5); Hematocrit 35.4 % (37-47); Hemoglobin 11.9 g/dL (12.0-15.0); Lymphocyte # 1.74 X10^3/ul (0.83-4.51); Lymphocyte % 15.4 % (19-41); Mean Corp Hgb Conc 33.6 g/dL (32-36); Mean Corpuscular Hgb 37.1 pg (27.0-32.0); Mean Corpuscular Volume 110.3 fL (81-99); Mean Platelet Vol. 12.9 fl (6.2-12.0); Monocyte# 1.05 X10^3/uL; Monocyte% 9.3 % (0-10); NRBC Flagged by Analyzer 0.3 % (0-5); Neutrophil # 8.39 X10^3/uL (2.7-7.7); Neutrophil % 74.2 % (47-70); Platelet Count 243 K/mm3 (150-450); RBC Distribution Width CV 14.8 % (11.6-14.6); RBC Distribution Width SD 60.1 fl (35.1-43.9); Red Blood Count 3.21 M/mm3 (4.2-5.4); White Blood Count 11.3 K/mm3 (4.4-11.0)
[2022-05-29] MEDS: Furosemide 40 MG/4 ML Vial IV ×2 (05:14→15:04)
[2022-05-29] MEDS: Levothyroxine 50 MCG Tablet PO (05:14)
[2022-05-29] MEDS: Acetaminophen 325 MG Tablet 650 MG PO (05:16)
[2022-05-29] MEDS: 0.9% Saline Lock 10 ML Syringe IV ×3 (05:18→21:35)
[2022-05-29 06:13] LABS: Anion Gap 8 (5-15); BUN 42 mg/dL (7-18); BUN/Creat Ratio 45.1 RATIO (10-20); Calcium,Total 9.6 mg/dL (8.5-10.1); Chloride 96 mmol/L (98-107); Creatinine, Serum 0.93 mg/dL (0.55-1.02); EST Glomerular Filtration Rate 61 mL/min (>60); Est Glom Filt Rate - Afr Amer 74 mL/min (>60); Estimated Creatinine Clearance 41.66 ml/min; Glucose 99 mg/dL (74-106); Potassium 3.6 mmol/L (3.5-5.1); Sodium Level 138 mmol/L (136-145)
[2022-05-29 06:35] LABS: Bedside Glucose 108 mg/dL (74-106)
[2022-05-29] MEDS: predniSONE 20 MG Tablet 40 MG PO (09:40)
[2022-05-29] MEDS: Aspirin E.C. 81 MG Tablet PO (09:40)
[2022-05-29] MEDS: Magnesium Chloride 64 MG Delay Rel.Tablet 128 MG PO (09:40)
[2022-05-29] MEDS: Pantoprazole Sodium 40 MG Tablet PO ×2 (09:41→22:38)
[2022-05-29] MEDS: DULoxetine Hcl 60 MG Capsule PO (09:41)
[2022-05-29] MEDS: guaiFENesin 1,200 MG Tablet 1200 MG PO ×2 (09:41→21:37)
[2022-05-29] MEDS: Fenofibrate 145 MG Tablet PO (09:41)
[2022-05-29] MEDS: Spironolactone 25 MG Tablet PO (09:42)
[2022-05-29] MEDS: Metoprolol Tartrate 50 MG Tablet PO ×2 (10:36→21:36)
[2022-05-29] MEDS: Doxycycline 100 MG CAPSULE PO ×2 (10:36→21:37)
[2022-05-29] MEDS: Enoxaparin 40 MG/0.4 ML Syringe SC (10:37)
[2022-05-29] MEDS: Pregabalin 50 MG Capsule PO ×2 (10:37→21:36)
[2022-05-29] MEDS: Insulin Lispro 100 UNIT/ML INSULN.PEN SC ×3 (11:40→21:35)
[2022-05-29 12:15] LABS: Bedside Glucose 181 mg/dL (74-106)
[2022-05-29 13:38] LABS: Pathologist Review Reviewed
[2022-05-29 17:20] LABS: Bedside Glucose 255 mg/dL (74-106)
--- NOTE | 2022-05-29 17:20 | PCM.PN.HOSP ---
Subjective Subjective DOS 05/29/22 CC: Tired Ms. Lomax is an 81y/o female who presented to [facility] 05/26 with acute hypoxic respiratory failure 2/2 AECHF. She has been diuresed with 40 IV lasix q8hrs and breathing has been improving. Dry cough, not back to baseline. Does report feeling tired today. Denies changes in bowel or bladder. Denies PRUETT or changes in vision. Denies feeling swollen. Objective Data Objective Data Vital Signs: Vital Signs Temp Pulse Resp BP Pulse Ox O2 Del Method O2 Flow Rate 98.0 F 65 16 132/56 H 95 Room Air 1 05/29/22 15:03 05/29/22 15:03 05/29/22 15:03 05/29/22 15:03 05/29/22 15:03 05/29/22 15:05 05/29/22 09:31 Oxygen Flow Rate (L/min) 1 Oxygen Delivery Method Room Air Weight: 60.6 kg Body Mass Index (BMI) 23.3 Intake & Output: Intake and Output for Last 24 Hours 05/27/22 05/28/22 05/29/22 23:59 23:59 23:59 Intake Total 480 / 620 920 / 1465 1345 / 1345 Output Total 1050 / 2400 3650 / 4250 1925 / 1925 Balance -570 / -1780 -2730 / -2785 -580 / -580 Lab / Micro Data Result Diagrams: 05/29/22 04:50 05/29/22 04:50 Labs: Laboratory Results - last 24 hr 05/26/22 08:30: Diff Path Review Reviewed 05/28/22 16:53: POC Glucose 238 H 05/28/22 22:00: POC Glucose 316 H 05/29/22 04:50: WBC 11.3 H, RBC 3.21 L, Hgb 11.9 L, Hct 35.4 L, MCV 110.3 H, MCH 37.1 H, MCHC 33.6, RDW Std Deviation 60.1 H, RDW Coeff of Ella 14.8 H, Plt Count 243, MPV 12.9 H, Immature Gran % (Auto) 0.500, Neut % (Auto) 74.2 H, Lymph % (Auto) 15.4 L, [place] % (Auto) 9.3, Eos % (Auto) 0.4, Baso % (Auto) 0.2, Absolute Neuts (auto) 8.4 H, Absolute Lymphs (auto) 1.74, Nucleated RBC % 0.3 05/29/22 04:50: Sodium 138, Potassium 3.6, Chloride 96 L, Carbon Dioxide 34.0 H, Anion Gap 8, BUN 42 H, Creatinine 0.93, Estim Creat Clear Calc 41.66, Est GFR (MDRD) Af Amer 74, Est GFR (MDRD) Non-Af 61, BUN/Creatinine Ratio 45.1 H, Glucose 99, Calcium 9.6 05/29/22 06:14: POC Glucose 108 H 05/29/22 11:37: POC Glucose 181 H Micro: Microbiology 05/26/22 10:15 Urine Catheter - Catheter Urine Culture - Final Culture exhibits no growth. 05/26/22 09:20 Blood Culture (Wb) - Anticubital Left Blood Culture - Preliminary No growth in 48 hours. 05/26/22 08:30 Blood Culture (Wb) - Anticubital Left Blood Culture - Preliminary No growth in 48 hours. 05/26/22 13:00 Mucosa - Nasopharyngeal Respiratory Panel (PCR) - Final 05/26/22 08:50 Nasal Secretion SARS-CoV-2 Antigen (Rapid) - Final Physical Exam Const alert and no apparent distress HEENT normocephalic and head/scalp atraumatic HEENT Narrative: Slightly dry mucous membranes Eyes Eyes Narrative: EOM grossly intact, anicteric Neck supple Resp normal respiratory effort Resp Narrative: Somewhat diminished air entry at the bases Cardio regular rate and regular rhythm GI soft to palpation, non-tender and non-distended Extremity Extremity Narrative: No edema appreciated, wrinkles on legs and hands Neuro moves all extremities Neuro Narrative: No overt focal deficits appreciated Psych Psych Narrative: Cooperative Assessment & Plan Assessment/Plan (1) Acute exacerbation of CHF (congestive heart failure): PLAN: Plan 1. Acute hypoxic respiratory failure ? As evidenced by patient respiratory distress tachypnea 05/26 (with a respiratory rate of 32), inability to speak in full sentences and patient significant hypoxia 84% on room air had to be placed on 2 L to get her oxygen saturation in the mid 90s and apparently desaturated whilst undergoing CT. Patient acute hypoxic respiratory failure secondary to acute on chronic congestive heart failure with reduced fraction. Admitted to a monitored bed for treatment of her underlying condition - CT 05/26 with small bilat pleural effusions and bibasilar dependent atelectasis ? 05/27/2022; patient remains supplemental oxygen -05/28/2022 Patient seen continues to improve clinically. Did request for PT OT [employer]. Plan is to assess patient for possible home oxygen. -05/29- breathing improving, will likely need walk test prior to d/c 2. Acute on chronic congestive heart failure with reduced ejection fraction ? Patient has a known EF of 35%. Patient has been admitted to a monitored bed being managed with strict input and output, daily weight, fluid restriction as well as IV Lasix. Patient progressed being monitored with her vitals I's and O's as well as oxygen saturation -BNP on admit 1559 w/ small effusions seen on CT ? 05/27/2022; patient is net negative fluid balance of 2 L since admission -05/29- IV lasix transitioned to PO, given high doses of IV lasix required, will verify pt tolerates lower dose of oral prior to d/c Will need f/u bmp Daily weights 3. Leukocytosis ? Patient does not have any evidence of infection CT of the chest did not show pneumonia urinalysis unremarkable this is most likely reactive we will continue to monitor ? 05/27/2022 patient WBC count down within normal limits -Resolved 4. Lactic acidosis - no evidence of infection patient lactic acidosis attributed to her increased work of breathing -Resolved 5. Hypokalemia ? on high doses of lasix, monitor BMP 6. COPD with acute exacerbation ? Patient managed with supplemental oxygen Solu-Medrol bronchodilator treatment as well as antibiotics with doxycycline- continue pred and doxy course 7. Ischemic cardiomyopathy with previous VTE's ? Status post AICD placement 8. Diabetes mellitus type 2 ? Currently managed with diet, placed on Accu-Cheks before meals and at bedtime with sliding scale coverage 9. Essential hypertension ? Patient blood pressure remained stable at this point did continue with home meds with plans for adjustment if needed warranted 10. Hypothyroidism - Patient is on levothyroxine home dose continued 11. GERD ? Patient is on PPI did continue 12. Dyslipidemia -Patient is on statin therapy, continued at home dose 13. Pulmonary hypertension ? Due to combination of patient chronic heart disease as well as COPD placed on supplemental oxygen 15. Paroxysmal A. fib ? Patient in sinus rhythm rate controlled currently not on any systemic anticoagulation because of previous GI bleed 16. Coronary artery disease With previous [place] and subsequent CABG 17. History of breast CA ? Currently remission 18. Peripheral vascular disease ?patient is on statin therapy as well as antiplatelet therapy 19. Dementia ? Patient is on Aricept and continue 20. DVT prophylaxis ? Enoxaparin Charges/Coding Visit Charges Inpatient E&M: 09045 Subs Hosp L2
[2022-05-29 17:52] LABS: Magnesium 2.2 mg/dL (1.6-2.6)
[2022-05-29] MEDS: Ipratropium/Albuterol Sulfate 3 ML AMPUL.NEB INHALATION (18:41)
[2022-05-29] MEDS: Insulin Glargine-YFGN 100 UNIT/ML Pen 18 UNIT SC (21:35)
[2022-05-29] MEDS: Pravastatin 40 MG Tablet PO (21:36)
[2022-05-29] MEDS: Furosemide 80 MG Tablet PO (21:36)
[2022-05-29] MEDS: traZODone 50 MG Tablet PO (21:37)
[2022-05-29] MEDS: Potassium Chloride Oral Tablet 20 MEQ PO (21:37)
[2022-05-29 22:20] LABS: Bedside Glucose 191 mg/dL (74-106)
[2022-05-30] VITALS (17 sets, daily range): BP systolic 103–137; BP diastolic 48–79; PULSE 60–86; RESP 16–19; TEMP 36.1–37; O2SAT 93–98
[2022-05-30] MEDS: Levothyroxine 50 MCG Tablet PO (05:21)
[2022-05-30] MEDS: Ipratropium/Albuterol Sulfate 3 ML AMPUL.NEB INHALATION ×4 (06:31→18:43)
[2022-05-30 06:34] LABS: Absolute Lymphocyte Count 2.36 X10^3/uL (0.83-4.51); Absolute Neutrophil Count 7.5 X10^3/uL (2.0-7.7); Basophil# 0.02 X10^3/uL; Basophil% 0.2 % (0-1); Eosinophil# 0.12 X10^3/uL; Eosinophils% 1.1 % (0-5); Hematocrit 39.9 % (37-47); Hemoglobin 13.7 g/dL (12.0-15.0); Lymphocyte # 2.36 X10^3/ul (0.83-4.51); Lymphocyte % 21.4 % (19-41); Mean Corp Hgb Conc 34.3 g/dL (32-36); Mean Corpuscular Hgb 37.5 pg (27.0-32.0); Mean Corpuscular Volume 109.3 fL (81-99); Mean Platelet Vol. 12.9 fl (6.2-12.0); Monocyte# 0.97 X10^3/uL; Monocyte% 8.8 % (0-10); NRBC Flagged by Analyzer 0 % (0-5); Neutrophil # 7.47 X10^3/uL (2.7-7.7); Neutrophil % 67.6 % (47-70); Platelet Count 282 K/mm3 (150-450); RBC Distribution Width CV 14.6 % (11.6-14.6); RBC Distribution Width SD 59.1 fl (35.1-43.9); Red Blood Count 3.65 M/mm3 (4.2-5.4)
[2022-05-30 06:36] LABS: Bedside Glucose 103 mg/dL (74-106)
[2022-05-30 07:00] LABS: ALB/GLOB Ratio 0.9 RATIO (0.9-2.4); AST(SGOT) 23 U/L (15-37); Alanine Aminotransfer ALT/SGPT 20 U/L (13-56); Albumin, Serum 3.7 g/dL (3.2-5.0); Alkaline Phosphatase 41 U/L (45-117); Anion Gap 8 (5-15); BUN 48 mg/dL (7-18); BUN/Creat Ratio 44.4 RATIO (10-20); Calcium,Total 9.9 mg/dL (8.5-10.1); Chloride 95 mmol/L (98-107); Creatinine, Serum 1.08 mg/dL (0.55-1.02); EST Glomerular Filtration Rate 52 mL/min (>60); Est Glom Filt Rate - Afr Amer 63 mL/min (>60); Estimated Creatinine Clearance 35.88 ml/min; Glucose 101 mg/dL (74-106); Magnesium 2.1 mg/dL (1.6-2.6); Potassium 3.9 mmol/L (3.5-5.1); Protein, Total 7.7 g/dL (6.4-8.2); Sodium Level 138 mmol/L (136-145)
--- NOTE | 2022-05-30 07:50 | PCM.PN.HOSP ---
Subjective Subjective DOS 05/30/22 CC: f/u SOB Reports breathing continues to improve. No productive cough. Still urinating though somewhat less with oral meds, Denies CP, no headache or changes in vision. Eating well. Denies abd pain, denies swelling. Objective Data Objective Data Vital Signs: Vital Signs Temp Pulse Resp BP Pulse Ox O2 Del Method O2 Flow Rate 97 F L 66 19 H 121/54 H 98 Room Air 1 05/30/22 03:03 05/30/22 07:03 05/30/22 06:32 05/30/22 03:03 05/30/22 06:32 05/30/22 06:32 05/29/22 20:55 Oxygen Flow Rate (L/min) 1 Oxygen Delivery Method Room Air Weight: 59 kg Body Mass Index (BMI) 23.3 Intake & Output: Intake and Output for Last 24 Hours 05/28/22 05/29/22 05/30/22 23:59 23:59 23:59 Intake Total 920 / 1465 1345 / 1585 240 / 240 Output Total 3650 / 4250 1925 / 2325 1400 / 1400 Balance -2730 / -2785 -580 / -740 -1160 / -1160 Lab / Micro Data Result Diagrams: 05/30/22 05:40 05/30/22 05:40 Labs: Laboratory Results - last 24 hr 05/26/22 08:30: Diff Path Review Reviewed 05/29/22 04:50: Magnesium 2.2 05/29/22 11:37: POC Glucose 181 H 05/29/22 16:57: POC Glucose 255 H 05/29/22 21:26: POC Glucose 191 H 05/30/22 05:40: WBC 11.0, RBC 3.65 L, Hgb 13.7, Hct 39.9, MCV 109.3 H, MCH 37.5 H, MCHC 34.3, RDW Std Deviation 59.1 H, RDW Coeff of Ella 14.6, Plt Count 282, MPV 12.9 H, Immature Gran % (Auto) 0.900, Neut % (Auto) 67.6, Lymph % (Auto) 21.4, [place] % (Auto) 8.8, Eos % (Auto) 1.1, Baso % (Auto) 0.2, Absolute Neuts (auto) 7.5, Absolute Lymphs (auto) 2.36, Nucleated RBC % 0 05/30/22 05:40: Sodium 138, Potassium 3.9, Chloride 95 L, Carbon Dioxide 35.0 H, Anion Gap 8, BUN 48 H, Creatinine 1.08 H, Estim Creat Clear Calc 35.88, Est GFR (MDRD) Af Amer 63, Est GFR (MDRD) Non-Af 52 L, BUN/Creatinine Ratio 44.4 H, Glucose 101, Calcium 9.9, Magnesium 2.1, Total Bilirubin 0.90, AST 23, ALT 20, Alkaline Phosphatase 41 L, Total Protein 7.7, Albumin 3.7, Globulin 4.0, Albumin/Globulin Ratio 0.9 05/30/22 06:10: POC Glucose 103 Micro: Microbiology 05/26/22 10:15 Urine Catheter - Catheter Urine Culture - Final Culture exhibits no growth. 05/26/22 09:20 Blood Culture (Wb) - Anticubital Left Blood Culture - Preliminary No growth in 48 hours. 05/26/22 08:30 Blood Culture (Wb) - Anticubital Left Blood Culture - Preliminary No growth in 48 hours. 05/26/22 13:00 Mucosa - Nasopharyngeal Respiratory Panel (PCR) - Final 05/26/22 08:50 Nasal Secretion SARS-CoV-2 Antigen (Rapid) - Final Physical Exam Const alert and no apparent distress Constitutional Narrative: Oriented HEENT normocephalic and head/scalp atraumatic Eyes Eyes Narrative: EOM grossly intact, anicteric Neck supple Resp normal respiratory effort Resp Narrative: Crackles at bases, roughly unchanged Cardio regular rate and regular rhythm Cardio Narrative: occasional PVCs GI soft to palpation, non-tender and non-distended Extremity Extremity Narrative: No edema appreciated Neuro moves all extremities Neuro Narrative: No overt focal deficits appreciated Psych Psych Narrative: Cooperative Assessment & Plan Assessment/Plan (1) Acute exacerbation of CHF (congestive heart failure): PLAN: Plan 1. Acute hypoxic respiratory failure ? As evidenced by patient respiratory distress tachypnea 05/26 (with a respiratory rate of 32), inability to speak in full sentences and patient significant hypoxia 84% on room air had to be placed on 2 L to get her oxygen saturation in the mid 90s and apparently desaturated whilst undergoing CT. Patient acute hypoxic respiratory failure secondary to acute on chronic congestive heart failure with reduced fraction. Admitted to a monitored bed for treatment of her underlying condition - CT 05/26 with small bilat pleural effusions and bibasilar dependent atelectasis ? 05/27/2022; patient remains supplemental oxygen -05/28/2022 Patient seen continues to improve clinically. Did request for PT OT [facility]. Plan is to assess patient for possible home oxygen. -05/29- breathing improving, will likely need walk test prior to d/c -05/30: Lasix decreased with reduction in UOP but Cr increased to 1.09 w/ baseline roughly 0.7 and BUN 48, pt in volume depleted state. 61.6->59 kg. Given SAUL and concern for worsening renal function and unclear diuretic need to achieve adequate fluid balance, will likely monitor one more day on decreased dose to assess electrolytes and fluid/breathing status #SAUL 2/2 diuresis, will lower diuretic dose Breathing is improving but concern for worsening function in light of continued need for diuresis for respiratory status Will need to monitor closely Once improving can f/u BMP outpt, but will verify pt is stable prior to d/c 2. Acute on chronic congestive heart failure with reduced ejection fraction ? Patient has a known EF of 35%. Patient has been admitted to a monitored bed being managed with strict input and output, daily weight, fluid restriction as well as IV Lasix. Patient progressed being monitored with her vitals I's and O's as well as oxygen saturation -BNP on admit 1559 w/ small effusions seen on CT ? 05/27/2022; patient is net negative fluid balance of 2 L since admission -05/29- IV lasix transitioned to PO, given high doses of IV lasix required, will verify pt tolerates lower dose of oral prior to d/c Will need f/u bmp 05/30: Daily weights, 59 today from 61.6, Cr increased/SAUL, further decrease in lasix 3. Leukocytosis ? Patient does not have any evidence of infection CT of the chest did not show pneumonia urinalysis unremarkable this is most likely reactive we will continue to monitor ? 05/27/2022 patient WBC count down within normal limits -Resolved 4. Lactic acidosis - no evidence of infection patient lactic acidosis attributed to her increased work of breathing -Resolved 5. Hypokalemia ? on high doses of lasix, monitor BMP 6. COPD with acute exacerbation ? Patient managed with supplemental oxygen Solu-Medrol bronchodilator treatment as well as antibiotics with doxycycline- continue pred and doxy course 7. Ischemic cardiomyopathy with previous VTE's ? Status post AICD placement 8. Diabetes mellitus type 2 ? Currently managed with diet, placed on Accu-Cheks before meals and at bedtime with sliding scale coverage 9. Essential hypertension ? Patient blood pressure remained stable at this point did continue with home meds with plans for adjustment if needed warranted 10. Hypothyroidism - Patient is on levothyroxine home dose continued 11. GERD ? Patient is on PPI did continue 12. Dyslipidemia -Patient is on statin therapy, continued at home dose 13. Pulmonary hypertension ? Due to combination of patient chronic heart disease as well as COPD placed on supplemental oxygen 15. Paroxysmal A. fib ? Patient in sinus rhythm rate controlled currently not on any systemic anticoagulation because of previous GI bleed 16. Coronary artery disease With previous [place] and subsequent CABG 17. History of breast CA ? Currently remission 18. Peripheral vascular disease ?patient is on statin therapy as well as antiplatelet therapy 19. Dementia ? Patient is on Aricept and continue 20. DVT prophylaxis ? Enoxaparin Charges/Coding Visit Charges Inpatient E&M: 70374 Subs Hosp L2
[2022-05-30] MEDS: predniSONE 20 MG Tablet 40 MG PO (08:58)
[2022-05-30] MEDS: Aspirin E.C. 81 MG Tablet PO (08:58)
[2022-05-30] MEDS: Pantoprazole Sodium 40 MG Tablet PO ×2 (09:43→22:57)
[2022-05-30] MEDS: Pregabalin 50 MG Capsule PO ×2 (09:43→23:07)
[2022-05-30] MEDS: Fenofibrate 145 MG Tablet PO (09:44)
[2022-05-30] MEDS: Spironolactone 25 MG Tablet PO (09:44)
[2022-05-30] MEDS: guaiFENesin 1,200 MG Tablet 1200 MG PO ×2 (09:44→22:56)
[2022-05-30] MEDS: Metoprolol Tartrate 50 MG Tablet PO ×2 (09:44→22:55)
[2022-05-30] MEDS: Magnesium Chloride 64 MG Delay Rel.Tablet 128 MG PO (09:45)
[2022-05-30] MEDS: Doxycycline 100 MG CAPSULE PO ×2 (09:45→22:54)
[2022-05-30] MEDS: DULoxetine Hcl 60 MG Capsule PO (09:45)
[2022-05-30] MEDS: Enoxaparin 40 MG/0.4 ML Syringe SC (09:47)
[2022-05-30] MEDS: Furosemide 40 MG Tablet PO (09:53)
[2022-05-30 12:40] LABS: Bedside Glucose 125 mg/dL (74-106)
[2022-05-30] MEDS: Ferrous Sulfate 325 MG Tablet PO (14:06)
--- NOTE | 2022-05-30 14:28 | CASEMGMT ---
TOYIN called [facility] coverage line to obtain patient's rn case mgr. Patient's motel food service supervisor is Nicole Pérez. Nicole's phone number is [phone] and fax number is [phone]. Patient has a medical alert button and aides through [facility] 8 hours a week. Patient is actually approved for more aide hours, but her motel food service supervisor is having troubles staffing more hours. Patient has a waiver nurse visit weekly through [place]. Sadaf GRANT
[2022-05-30] MEDS: Insulin Lispro 100 UNIT/ML INSULN.PEN SC ×2 (17:07→23:04)
--- NOTE | 2022-05-30 18:12 | EKG12_ITS ---
Test Reason : BIGEMINY Blood Pressure : / mmHG Vent. Rate : 083 BPM Atrial Rate : 083 BPM P-R Int : 172 ms QRS Dur : 114 ms QT Int : 412 ms P-R-T Axes : 071 053 072 degrees QTc Int : 484 ms Atrial fibrillation Incomplete left bundle branch block Left ventricular hypertrophy with repolarization abnormality ( Sokolow-Abernathy , [place] product , Romhi lt-Riddle ) Abnormal ECG When compared with ECG of 27-MAY-2022 18:34, Current undetermined rhythm precludes rhythm comparison, needs review T wave inversion less evident in Anterior leads T wave inversion more evident in Lateral leads Confirmed by DAYNA KILLIAN, COBY ([id number]), newspaper editor DARBY GARCIA ([id number]) on 05/31/2022 2:17:38 PM Referred By: Confirmed By:COBY MCINTOSH MD
[2022-05-30] MEDS: Metoprolol Tartrate 25 MG Tablet PO (18:39)
[2022-05-30] MEDS: traZODone 50 MG Tablet PO (22:53)
[2022-05-30] MEDS: Pravastatin 40 MG Tablet PO (22:56)
[2022-05-30] MEDS: Insulin Glargine-YFGN 100 UNIT/ML Pen 18 UNIT SC (23:06)
[2022-05-30 23:26] LABS: Bedside Glucose 359 mg/dL (74-106)
[2022-05-31] VITALS (14 sets, daily range): BP systolic 104–137; BP diastolic 35–79; PULSE 56–79; RESP 16–18; TEMP 36–37; O2SAT 90–97
[2022-05-31 04:38] LABS: Absolute Lymphocyte Count 1.92 X10^3/uL (0.83-4.51); Absolute Neutrophil Count 7.2 X10^3/uL (2.0-7.7); Basophil# 0.01 X10^3/uL; Basophil% 0.1 % (0-1); Eosinophil# 0.07 X10^3/uL; Eosinophils% 0.7 % (0-5); Hematocrit 35.4 % (37-47); Hemoglobin 12.6 g/dL (12.0-15.0); Lymphocyte # 1.92 X10^3/ul (0.83-4.51); Lymphocyte % 18.6 % (19-41); Mean Corp Hgb Conc 35.6 g/dL (32-36); Mean Corpuscular Volume 106.6 fL (81-99); Mean Platelet Vol. 12.5 fl (6.2-12.0); Monocyte# 0.97 X10^3/uL; Monocyte% 9.4 % (0-10); NRBC Flagged by Analyzer 0 % (0-5); Neutrophil # 7.24 X10^3/uL (2.7-7.7); Neutrophil % 70.3 % (47-70); Platelet Count 236 K/mm3 (150-450); RBC Distribution Width CV 14.6 % (11.6-14.6); RBC Distribution Width SD 57.5 fl (35.1-43.9); Red Blood Count 3.32 M/mm3 (4.2-5.4); White Blood Count 10.3 K/mm3 (4.4-11.0)
[2022-05-31 05:02] LABS: AST(SGOT) 17 U/L (15-37); Alanine Aminotransfer ALT/SGPT 18 U/L (13-56); Albumin, Serum 3.4 g/dL (3.2-5.0); Alkaline Phosphatase 45 U/L (45-117); Anion Gap 7 (5-15); BUN 47 mg/dL (7-18); BUN/Creat Ratio 46.5 RATIO (10-20); Calcium,Total 9.7 mg/dL (8.5-10.1); Chloride 96 mmol/L (98-107); Creatinine, Serum 1.01 mg/dL (0.55-1.02); EST Glomerular Filtration Rate 56 mL/min (>60); Est Glom Filt Rate - Afr Amer 68 mL/min (>60); Estimated Creatinine Clearance 38.36 ml/min; Globulin 3.4 g/dL (2.2-4.2); Glucose 141 mg/dL (74-106); Potassium 3.6 mmol/L (3.5-5.1); Protein, Total 6.8 g/dL (6.4-8.2); Sodium Level 136 mmol/L (136-145)
[2022-05-31] MEDS: Levothyroxine 50 MCG Tablet PO (06:37)
[2022-05-31 07:01] LABS: Bedside Glucose 104 mg/dL (74-106)
--- NOTE | 2022-05-31 07:14 | PN.HOSP_ITS ---
Subjective Subjective DOS 05/31/22 CC feeling tired Pt yesterday had bigeminy and ectopy on EKG/tele and metoprolol was increased. Vitally stable today. Reports feeling tired, denies any swelling. No cp or sob (not on O2 during eval), eating well, no nausea. Denies other complaints today. Objective Data Objective Data Vital Signs: Vital Signs Temp Pulse Resp BP Pulse Ox O2 Del Method O2 Flow Rate 96.8 F L 67 16 115/55 L 97 Room Air 2 05/31/22 06:00 05/31/22 06:00 05/31/22 06:00 05/31/22 06:00 05/31/22 06:00 05/31/22 06:00 05/31/22 06:00 Oxygen Flow Rate (L/min) 2 Oxygen Delivery Method Room Air Weight: 59.1 kg Body Mass Index (BMI) 23.3 Intake & Output: Intake and Output for Last 24 Hours 05/29/22 05/30/22 05/31/22 23:59 23:59 23:59 Intake Total 1345 / 1585 1080 / 1080 Output Total 1925 / 2325 1600 / 1600 Balance -580 / -740 -520 / -520 Lab / Micro Data Result Diagrams: 05/31/22 04:11 05/31/22 04:11 Labs: Laboratory Results - last 24 hr 05/30/22 11:50: POC Glucose 125 H 05/30/22 23:03: POC Glucose 359 H 05/31/22 04:11: WBC 10.3, RBC 3.32 L, Hgb 12.6, Hct 35.4 L, MCV 106.6 H, MCH 38.0 H, MCHC 35.6, RDW Std Deviation 57.5 H, RDW Coeff of Ella 14.6, Plt Count 236, MPV 12.5 H, Immature Gran % (Auto) 0.900, Neut % (Auto) 70.3 H, Lymph % (Auto) 18.6 L, [place] % (Auto) 9.4, Eos % (Auto) 0.7, Baso % (Auto) 0.1, Absolute Neuts (auto) 7.2, Absolute Lymphs (auto) 1.92, Nucleated RBC % 0 05/31/22 04:11: Sodium 136, Potassium 3.6, Chloride 96 L, Carbon Dioxide 33.0 H, Anion Gap 7, BUN 47 H, Creatinine 1.01, Estim Creat Clear Calc 38.36, Est GFR (MDRD) Af Amer 68, Est GFR (MDRD) Non-Af 56 L, BUN/Creatinine Ratio 46.5 H, Glucose 141 H, Calcium 9.7, Magnesium 2.0, Total Bilirubin 0.80, AST 17, ALT 18, Alkaline Phosphatase 45, Total Protein 6.8, Albumin 3.4, Globulin 3.4, Albumin/Globulin Ratio 1.0 05/31/22 06:36: POC Glucose 104 Micro: Microbiology 05/26/22 10:15 Urine Catheter - Catheter Urine Culture - Final Culture exhibits no growth. 05/26/22 09:20 Blood Culture (Wb) - Anticubital Left Blood Culture - Preliminary No growth in 48 hours. 05/26/22 08:30 Blood Culture (Wb) - Anticubital Left Blood Culture - Preliminary No growth in 48 hours. 05/26/22 13:00 Mucosa - Nasopharyngeal Respiratory Panel (PCR) - Final 05/26/22 08:50 Nasal Secretion SARS-CoV-2 Antigen (Rapid) - Final Physical Exam Const alert and no apparent distress Constitutional Narrative: Oriented HEENT normocephalic and head/scalp atraumatic Eyes Eyes Narrative: EOM grossly intact, anicteric Neck supple Resp normal respiratory effort Resp Narrative: Crackles minimal, airmovement improved Cardio regular rate and regular rhythm Cardio Narrative: occasional PVCs GI soft to palpation, non-tender and non-distended Extremity Extremity Narrative: No edema appreciated Neuro moves all extremities Neuro Narrative: No overt focal deficits appreciated Psych Psych Narrative: Cooperative Assessment & Plan Assessment/Plan (1) Acute exacerbation of CHF (congestive heart failure): PLAN: Plan 1. Acute hypoxic respiratory failure ? As evidenced by patient respiratory distress tachypnea 05/26 (with a respiratory rate of 32), inability to speak in full sentences and patient significant hypoxia 84% on room air had to be placed on 2 L to get her oxygen saturation in the mid 90s and apparently desaturated whilst undergoing CT. Patient acute hypoxic respiratory failure secondary to acute on chronic congestive heart failure with reduced fraction. Admitted to a monitored bed for treatment of her underlying condition - CT 05/26 with small bilat pleural effusions and bibasilar dependent atelectasis ? 05/27/2022; patient remains supplemental oxygen -05/28/2022 Patient seen continues to improve clinically. Did request for PT OT [facility]. Plan is to assess patient for possible home oxygen. -05/29- breathing improving, will likely need walk test prior to d/c -05/30: Lasix decreased with reduction in UOP but Cr increased to 1.09 w/ baseline roughly 0.7 and BUN 48, pt in volume depleted state. 61.6->59 kg. Given SAUL and concern for worsening renal function and unclear diuretic need to achieve adequate fluid balance, will likely monitor one more day on decreased dose to assess electrolytes and fluid/breathing status 05/31: Much improved, will preform walk test prior to d/c, will d/c with budesonide as this is what she was taking at home and pending pt does well throughout the morning will plan on d/c #SAUL- improving 2/2 diuresis, will lower diuretic dose Breathing is improving but concern for worsening function in light of continued need for diuresis for respiratory status Will need to monitor closely Once improving can f/u BMP outpt, but will verify pt is stable prior to d/c 05/31- improving, can continue diuretics and f/u with PCP with BMP w/in 1 week, will advise #Ectopy Seen on ekg and tele, bigeminy diretic dose lowered and metoprolol increased, f/u with PCP has AICD 2. Acute on chronic congestive heart failure with reduced ejection fraction ? Patient has a known EF of 35%. Patient has been admitted to a monitored bed being managed with strict input and output, daily weight, fluid restriction as well as IV Lasix. Patient progressed being monitored with her vitals I's and O's as well as oxygen saturation -BNP on admit 1559 w/ small effusions seen on CT ? 05/27/2022; patient is net negative fluid balance of 2 L since admission -05/29- IV lasix transitioned to PO, given high doses of IV lasix required, will verify pt tolerates lower dose of oral prior to d/c Will need f/u bmp 05/30: Daily weights, 59 today from 61.6, Cr increased/SAUL, further decrease in lasix 05/31: weight leveled off, continue diuretics and current medications 3. Leukocytosis ? Patient does not have any evidence of infection CT of the chest did not show pneumonia urinalysis unremarkable this is most likely reactive we will continue to monitor ? 05/27/2022 patient WBC count down within normal limits -Resolved 4. Lactic acidosis - no evidence of infection patient lactic acidosis attributed to her increased work of breathing -Resolved 5. Hypokalemia ?improving with lower dose of diuretics f/u BMP and PCP w/in 1 week 6. COPD with acute exacerbation ? Patient managed with supplemental oxygen Solu-Medrol bronchodilator treatment as well as antibiotics with doxycycline- continue pred and doxy course- will need 1 more dose of doxy and 1 more day of pred 7. Ischemic cardiomyopathy with previous VTE's ? Status post AICD placement 8. Diabetes mellitus type 2 ? Currently managed with diet, placed on Accu-Cheks before meals and at bedtime with sliding scale coverage 9. Essential hypertension ? Patient blood pressure remained stable at this point did continue with home meds with plans for adjustment if needed warranted 10. Hypothyroidism - Patient is on levothyroxine home dose continued 11. GERD ? Patient is on PPI did continue 12. Dyslipidemia -Patient is on statin therapy, continued at home dose 13. Pulmonary hypertension ? Due to combination of patient chronic heart disease as well as COPD placed on supplemental oxygen 15. Paroxysmal A. fib ? Patient in sinus rhythm rate controlled currently not on any systemic anticoagulation because of previous GI bleed 16. Coronary artery disease With previous [place] and subsequent CABG 17. History of breast CA ? Currently remission 18. Peripheral vascular disease ?patient is on statin therapy as well as antiplatelet therapy 19. Dementia ? Patient is on Aricept and continue 20. DVT prophylaxis ? Enoxaparin Charges/Coding Visit Charges Inpatient E&M: 76791 Subs Hosp L2
[2022-05-31] MEDS: Ipratropium/Albuterol Sulfate 3 ML AMPUL.NEB INHALATION (07:37)
[2022-05-31] MEDS: Potassium Chloride Oral Tablet 20 MEQ 40 MEQ PO (09:05)
[2022-05-31] MEDS: Enoxaparin 40 MG/0.4 ML Syringe SC (09:06)
[2022-05-31] MEDS: Magnesium Chloride 64 MG Delay Rel.Tablet 128 MG PO (09:07)
[2022-05-31] MEDS: guaiFENesin 1,200 MG Tablet 1200 MG PO (09:07)
[2022-05-31] MEDS: predniSONE 20 MG Tablet 40 MG PO (09:07)
[2022-05-31] MEDS: Aspirin E.C. 81 MG Tablet PO (09:08)
[2022-05-31] MEDS: Doxycycline 100 MG CAPSULE PO (09:08)
[2022-05-31] MEDS: DULoxetine Hcl 60 MG Capsule PO (09:08)
[2022-05-31] MEDS: Fenofibrate 145 MG Tablet PO (09:08)
[2022-05-31] MEDS: Spironolactone 25 MG Tablet PO (09:08)
[2022-05-31] MEDS: Pantoprazole Sodium 40 MG Tablet PO (09:08)
[2022-05-31] MEDS: Metoprolol Tartrate 25 MG Tablet 75 MG PO (09:13)
[2022-05-31] MEDS: Pregabalin 50 MG Capsule PO (09:14)
[2022-05-31] MEDS: Furosemide 20 MG Tablet PO (09:14)
[2022-05-31] MEDS: Isosorbide Mononitrate 30 MG Tablet PO (09:14)
[2022-05-31 10:31] LABS: Bedside Glucose 444 mg/dL (74-106)
[2022-05-31 10:31] LABS: Bedside Glucose 435 mg/dL (74-106)
--- NOTE | 2022-05-31 11:12 | CASEMGMT ---
Addendum entered by Nasreen Escobar 05/31/22 14:26: D/C instructions obtained and faxed to [facility]. Ivet TAVERAS CM Addendum entered by Nasreen Escobar 05/31/22 11:30: Per Deandra TAVERAS, pt does not qualify for home oxygen. Ivet TAVERAS CM Original Note: Call to [facility] to notify that pt will d/c home today and EMMIE order/clinicals to be sent via [employer]. Per [facility], they are requesting info be faxed and not sent via [employer] as they have difficulty accessing. EMMIE order/clinicals faxed. D/C summary to be faxed once obtained. CM to also follow for home oxygen need. Ivet TAVERAS CM
[2022-05-31 11:31] LABS: Bedside Glucose 146 mg/dL (74-106)
--- NOTE | 2022-05-31 11:55 | CASEMGMT ---
Patient needs transportation home. TOYIN contacted [facility] and spoke with John. TOYIN told John patient is being discharged home from the hospital and will need a wheelchair ride home. TOYIN said [facility] preferred provider is [facility] and patient will need a wheelchair provided. TOYIN requested 2p cherry picker operator. The trip number is [phone]. [facility] and they will cherry picker operator patient at 130. Patient's paperwork is not yet completed so TOYIN asked for a 3p cherry picker operator. TOYIN notified RN, corporation secretary, and patient. TOYIN received a call from Keisha with [facility]. Keisha is patient's RN with her [employer] services. She asked when patient was being discharged and TOYIN told her today. Keisha asked TOYIN to let patient know that she will be out to see patient tomorrow at 10a Plan: d/c home with resumption of aide services and nursing. [facility] transported via [facility]. Transport was set up through [facility]. Sadaf GRANT
--- NOTE | 2022-05-31 13:03 | PCM.DC ---
Discharge Instructions Diet Discharge Diet: 2000 mg Sodium Diet Activity Discharge Activity: Return to Normal Activity Follow Up Care Test Results: Test results from this visit will be discussed in further detail at your follow-up appointment, if applicable. Discharge Plan Admission Admit Date/Time: 05/26/22 10:58 Primary Reason for Your Visit: Shortness of breath Attending Provider: Ivonne Vital Primary Care Provider: Roscoe Bradley Consulting Providers: Deo Weaver Instructions Additional Instructions / Restrictions: -YOU WILL NEED A BMP (lab work) ON DISCHARGE IN 1 WEEK PREFORMED THROUGH YOUR PCP's OFFICE, PLEASE CALL UPON DISCHARGE TO SCHEDULE YOUR FOLLOW UP APPOINTMENT WITHIN 1 WEEK AND ARRANGE FOR LAB WORK. -Your metoprolol dose has been increased, please continue this increased dose on discharge (75mg twice daily.) -Continue your home budesonide dose of 0.5mg twice daily -Weigh yourself every day. A sudden weight gain can mean you are retaining fluid. Weigh yourself at the same time of day and in the same kind of clothes. Ideally, weigh yourself first thing in the morning after you empty your bladder, but before you eat breakfast. -Please call your physician if your weight goes up by more than 2 pounds in 1 day or 5 pounds in 1 week. This can be a sign that you are retaining more fluid than you should be. Clues to weight gain include checking your ankles for swelling, or noticing you are short of breath when you lie down -You will have one more dose of doxycycline this evening and one more day of prednisone tomorrow for your breathing -Due to low blood pressure your imdur was decreased to 30mg (isosorbide mononitrate) and your amlodipine was held. -Additionally due to low heart rate your donepezil was held -Hydroxyzine can also lower blood pressure and cause confusion, it is advised you hold this until speaking with your primary care physician. -Please discuss these changes with your primary care physician and take these instructions with you at your hospital follow up appointment -Please call your PCP upon discharge to set up f/u within 1 week -Call 911 right away if you have: -Severe shortness of breath, such that you can't catch your breath even while resting -Severe chest pain that does not resolve with rest or nitroglycerin -[place], foamy mucus with cough and shortness of breath -An ongoing rapid or irregular heartbeat -Passing out or fainting -Stroke symptoms such as sudden numbness or weakness on one side of your face, arm, or leg or sudden confusion, trouble speaking or vision changes Discharge Orders/Prescriptions Prescriptions: New prednisone 20 mg Tablet 40 mg PO DAILY@0800 1 Days Qty: 1 0RF isosorbide mononitrate 30 mg Tablet Extended Release 24 Hr 30 mg PO DAILY 30 Days Qty: 30 0RF doxycycline monohydrate 100 mg Capsule 100 mg PO BID 1 Days Qty: 1 0RF metoprolol tartrate 25 mg Tablet 75 mg PO BID 30 Days Qty: 180 0RF Continued levothyroxine 75 MCG tablet 50 mcg PO DAILY Hold Instructions: Resume on 12/08/21. Repeat thyroid function test after 2 weeks duloxetine 60 MG capsule 60 mg PO DAILY cholecalciferol (vitamin D3) 50,000 UNIT capsule 50,000 unit PO MO trazodone 50 MG tablet 50 mg PO QHS aspirin 81 MG tablet 81 mg PO DAILY bumetanide 0.5 mg tablet 0.5 mg PO BIDCM Qty: 0 0RF magnesium 200 mg Tablet 400 mg PO BID pregabalin [Lyrica] 50 mg Capsule 50 mg PO BID pravastatin 40 mg Tablet 40 mg PO QHS fenofibrate 160 mg Tablet 160 mg PO DAILY spironolactone 25 mg tablet 25 mg PO DAILY pantoprazole [Protonix] 40 mg tablet,delayed release (DR/EC) 40 mg PO BID ferrous sulfate [FeroSul] 325 mg (65 mg iron) tablet 325 mg PO TUTHFR acetaminophen 500 mg Tablet 1,000 mg PO Q8 Qty: 0 0RF minerals Tablet 1 tab PO BID melatonin 10 mg Tablet 10 mg PO QHS PreserVision AREDS-2 250-90-40-1 mg Capsule 1 tab PO BID insulin glargine [Lantus Solostar U-100 Insulin] 100 unit/mL (3 mL) Insulin Pen 18 unit SUBCUT QHS Discontinued donepezil [Aricept] 5 MG tablet 5 mg PO QHS amlodipine 5 MG tablet 5 mg PO DAILY Qty: 0 0RF Rx Instructions: Hold for SBP less than 130 mmHg isosorbide mononitrate 120 MG tablet 60 mg PO DAILY Qty: 0 0RF Rx Instructions: Hold for SBP less than 130 mmHg hydroxyzine pamoate [Vistaril] 25 mg Capsule 25 mg PO BID PRN (Reason: Anxiety) metoprolol tartrate 50 mg tablet 50 mg PO BID Rx Instructions: Hold for heart less than 60 or systolic blood pressure less than 100 mmHg. hydrocodone-acetaminophen 5-325 mg Tablet 1 tab PO Q4H PRN (Reason: Pain) Referrals / Follow Up: Roscoe Bradley MD [Primary Care Provider] - In 1 Week Disposition Disposition (needs filled in before D/C Order can be placed): Home Health Service
--- NOTE | 2022-05-31 16:10 | PHA.DC.MR ---
Pharmacy Service has performed discharge medication reconciliation for this patient. The patient's discharge medication list was reviewed for discrepancies and discrepancies were resolved. Was unable to family counselor before discharge. Meds reviewed. Home Medications duloxetine 60 mg capsule,delayed release 60 mg PO DAILY depression 03/24/16 levothyroxine 75 mcg tablet 50 mcg PO DAILY thyroid 03/24/16 cholecalciferol (vitamin D3) 1,250 mcg (50,000 unit) capsule 50,000 unit PO MO supplement 09/18/16 trazodone 50 mg tablet 50 mg PO QHS sleep 10/11/18 aspirin 81 mg tablet,delayed release 81 mg PO DAILY heart health 11/28/18 bumetanide 0.5 mg tablet 0.5 mg PO BIDCM edema #0 tabs 11/25/21 magnesium 200 mg tablet 400 mg PO BID Supplement 12/16/21 pregabalin 50 mg capsule (Lyrica) 50 mg PO BID Nerve pain 12/16/21 fenofibrate 160 mg tablet 160 mg PO DAILY Cholesterol 01/08/22 ferrous sulfate 325 mg (65 mg iron) tablet (FeroSul) 325 mg PO TUTHFR Supplement 01/08/22 pantoprazole 40 mg tablet,delayed release (Protonix) 40 mg PO BID GERD 01/08/22 pravastatin 40 mg tablet 40 mg PO QHS Cholesterol 01/08/22 spironolactone 25 mg tablet 25 mg PO DAILY Water pill 01/08/22 acetaminophen 500 mg tablet 1,000 mg PO Q8 #0 tabs 01/11/22 melatonin 10 mg tablet 10 mg PO QHS Sleep 02/23/22 minerals 1 tab PO BID Supplement 02/23/22 vit C 250 mg-vit E 90 mg-zinc 40 mg-copper 1 [id number] capsule (PreserVision AREDS-2) 1 tab PO BID Supplement 02/23/22 insulin glargine 100 unit/mL (3 mL) subcutaneous pen (Lantus Solostar U-100 Insulin) 18 unit subcut QHS Diabetes 05/26/22 doxycycline monohydrate 100 mg capsule 100 mg PO BID 1 day #1 cap 05/31/22 isosorbide mononitrate 30 mg tablet,extended release 24 hr 30 mg PO DAILY 30 days #30 tabs 05/31/22 metoprolol tartrate 25 mg tablet 75 mg PO BID 30 days #180 tabs 05/31/22 prednisone 20 mg tablet 40 mg PO DAILY@0800 1 day #1 TAB 05/31/22
--- NOTE | 2022-05-31 18:01 | DS.PCM_ITS ---
Providers Date of Admission: 05/26/22 Date of Discharge: 05/31/22 Primary Care Physician: Roscoe Bradley MD Reason For Visit: CHF Diagnosis Discharge Diagnosis (1) Acute exacerbation of CHF (congestive heart failure): Status: Chronic Code(s): I50.9 - Heart failure, unspecified Plan 1. Acute hypoxic respiratory failure 1.5 SAUL resolved 1.75 Ectopy 2. Acute on chronic congestive heart failure with reduced ejection fraction 3. Leukocytosis 4. Lactic acidosis 5. Hypokalemia 6. COPD with acute exacerbation 7. Ischemic cardiomyopathy with previous VTE's 8. Diabetes mellitus type 2 9. Essential hypertension 10. Hypothyroidism 11. GERD 12. Dyslipidemia 13. Pulmonary hypertension 15. Paroxysmal A. fib 16. Coronary artery disease 17. History of breast CA 18. Peripheral vascular disease 19. Dementia Medications at Discharge Home Medications duloxetine 60 mg capsule,delayed release 60 mg PO DAILY depression 03/24/16 levothyroxine 75 mcg tablet 50 mcg PO DAILY thyroid 03/24/16 cholecalciferol (vitamin D3) 1,250 mcg (50,000 unit) capsule 50,000 unit PO MO supplement 09/18/16 trazodone 50 mg tablet 50 mg PO QHS sleep 10/11/18 aspirin 81 mg tablet,delayed release 81 mg PO DAILY heart health 11/28/18 bumetanide 0.5 mg tablet 0.5 mg PO BIDCM edema #0 tabs 11/25/21 magnesium 200 mg tablet 400 mg PO BID Supplement 12/16/21 pregabalin 50 mg capsule (Lyrica) 50 mg PO BID Nerve pain 12/16/21 fenofibrate 160 mg tablet 160 mg PO DAILY Cholesterol 01/08/22 ferrous sulfate 325 mg (65 mg iron) tablet (FeroSul) 325 mg PO TUTHFR Supplement 01/08/22 pantoprazole 40 mg tablet,delayed release (Protonix) 40 mg PO BID GERD 01/08/22 pravastatin 40 mg tablet 40 mg PO QHS Cholesterol 01/08/22 spironolactone 25 mg tablet 25 mg PO DAILY Water pill 01/08/22 acetaminophen 500 mg tablet 1,000 mg PO Q8 #0 tabs 01/11/22 melatonin 10 mg tablet 10 mg PO QHS Sleep 02/23/22 minerals 1 tab PO BID Supplement 02/23/22 vit C 250 mg-vit E 90 mg-zinc 40 mg-copper 1 [id number] capsule (PreserVision AREDS-2) 1 tab PO BID Supplement 02/23/22 insulin glargine 100 unit/mL (3 mL) subcutaneous pen (Lantus Solostar U-100 Insulin) 18 unit subcut QHS Diabetes 05/26/22 doxycycline monohydrate 100 mg capsule 100 mg PO BID 1 day #1 cap 05/31/22 isosorbide mononitrate 30 mg tablet,extended release 24 hr 30 mg PO DAILY 30 days #30 tabs 05/31/22 metoprolol tartrate 25 mg tablet 75 mg PO BID 30 days #180 tabs 05/31/22 prednisone 20 mg tablet 40 mg PO DAILY@0800 1 day #1 TAB 05/31/22 Hospital Course Summary of Care Provided Minutes Spent on Discharge: 35 Hospital Course: KATYE CROSS, is a 81 F with complicated past medical history including ischemic cardiomyopathy with EF of 25% status post AICD placement who presented with shortness of breath.? Patient symptoms started on the morning of her admission.? Per patient woke up unable to breathe.? Patient also did complain of a nonproductive cough.? She did not notice any swelling involving her lower extremities.? Denied any subjective fever no chills.? In view of worsening symptoms patient apparently called the EMS squad.? Patient was found to be significantly dyspneic at rest with oxygen saturation in the low 80s when the EMS arrived.? Was placed on supplemental oxygen and transferred to the emergency department.? Assessment in the ED consistent with CHF admitted to a monitored bed for further management. She was diagnosed with acute hypoxic respiratory failure secondary to combination of AECHF and COPD exacerbation. She was diuresed with 40IV q8hr of lasix and given doxy and prenisone. Breathing significantly improved but pt then developed SAUL and increasing BUN. Lasix decreased and pt improved. She additionally had ectopy on tele and metoprolol was increased. Her donepazil was also held due to low HR and her imdur was decreased and amlodipine held 2/2 borderline BP. Pt improved and was d/c'd on budesonide and one more dose of doxy as well as one more day of prednisone. Weight / BMI Weight Weight: 59.1 kg Body Mass Index (BMI) 23.3 ABG / Lab / Microbiology Data Result Diagrams: 05/31/22 04:11 05/31/22 04:11 Laboratory: Laboratory Results - last 24 hr 05/30/22 17:04: POC Glucose 435 H 05/30/22 17:05: POC Glucose 444 H 05/30/22 23:03: POC Glucose 359 H 05/31/22 04:11: WBC 10.3, RBC 3.32 L, Hgb 12.6, Hct 35.4 L, MCV 106.6 H, MCH 38.0 H, MCHC 35.6, RDW Std Deviation 57.5 H, RDW Coeff of Ella 14.6, Plt Count 236, MPV 12.5 H, Immature Gran % (Auto) 0.900, Neut % (Auto) 70.3 H, Lymph % (Auto) 18.6 L, Boundary % (Auto) 9.4, Eos % (Auto) 0.7, Baso % (Auto) 0.1, Absolute Neuts (auto) 7.2, Absolute Lymphs (auto) 1.92, Nucleated RBC % 0 05/31/22 04:11: Sodium 136, Potassium 3.6, Chloride 96 L, Carbon Dioxide 33.0 H, Anion Gap 7, BUN 47 H, Creatinine 1.01, Estim Creat Clear Calc 38.36, Est GFR (MDRD) Af Amer 68, Est GFR (MDRD) Non-Af 56 L, BUN/Creatinine Ratio 46.5 H, Glucose 141 H, Calcium 9.7, Magnesium 2.0, Total Bilirubin 0.80, AST 17, ALT 18, Alkaline Phosphatase 45, Total Protein 6.8, Albumin 3.4, Globulin 3.4, Albumin/Globulin Ratio 1.0 05/31/22 06:36: POC Glucose 104 05/31/22 11:10: POC Glucose 146 H Microbiology: Microbiology 05/31/22 11:30 Nasal Secretion SARS-CoV-2 Antigen (Rapid) - Final 05/26/22 08:30 Blood Culture (Wb) - Anticubital Left Blood Culture - Final No growth in 5 days. 05/26/22 09:20 Blood Culture (Wb) - Anticubital Left Blood Culture - Final No growth in 5 days. 05/26/22 10:15 Urine Catheter - Catheter Urine Culture - Final Culture exhibits no growth. 05/26/22 13:00 Mucosa - Nasopharyngeal Respiratory Panel (PCR) - Final 05/26/22 08:50 Nasal Secretion SARS-CoV-2 Antigen (Rapid) - Final D/C Instructions Discharge Diet: 2000 mg Sodium Diet Meaningful Use Info Meaningful Use Diagnoses (Choose all that apply): CHF CHF GERRY/ARB ordered at discharge?: No Reason GERRY/ARB not ordered?: Hypotension and Worsening renal disease Documented LVEF (%): 35 Discharge Plan Admission Admit Date/Time: 05/26/22 10:58 Primary Reason for Your Visit: Shortness of breath Attending Provider: Ivonne Vital Primary Care Provider: Roscoe Bradley Consulting Providers: Deo Weaver Instructions Additional Instructions / Restrictions: -YOU WILL NEED A BMP (lab work) ON DISCHARGE IN 1 WEEK PREFORMED THROUGH YOUR PCP's OFFICE, PLEASE CALL UPON DISCHARGE TO SCHEDULE YOUR FOLLOW UP APPOINTMENT WITHIN 1 WEEK AND ARRANGE FOR LAB WORK. -Your metoprolol dose has been increased, please continue this increased dose on discharge (75mg twice daily.) -Continue your home budesonide dose of 0.5mg twice daily -Weigh yourself every day. A sudden weight gain can mean you are retaining fluid. Weigh yourself at the same time of day and in the same kind of clothes. Ideally, weigh yourself first thing in the morning after you empty your bladder, but before you eat breakfast. -Please call your physician if your weight goes up by more than 2 pounds in 1 day or 5 pounds in 1 week. This can be a sign that you are retaining more fluid than you should be. Clues to weight gain include checking your ankles for swelling, or noticing you are short of breath when you lie down -You will have one more dose of doxycycline this evening and one more day of prednisone tomorrow for your breathing -Due to low blood pressure your imdur was decreased to 30mg (isosorbide mononitrate) and your amlodipine was held. -Additionally due to low heart rate your donepezil was held -Hydroxyzine can also lower blood pressure and cause confusion, it is advised you hold this until speaking with your primary care physician. -Please discuss these changes with your primary care physician and take these instructions with you at your hospital follow up appointment -Please call your PCP upon discharge to set up f/u within 1 week -Call 911 right away if you have: -Severe shortness of breath, such that you can't catch your breath even while resting -Severe chest pain that does not resolve with rest or nitroglycerin -[place], foamy mucus with cough and shortness of breath -An ongoing rapid or irregular heartbeat -Passing out or fainting -Stroke symptoms such as sudden numbness or weakness on one side of your face, arm, or leg or sudden confusion, trouble speaking or vision changes Discharge Orders/Prescriptions Prescriptions: New prednisone 20 mg Tablet 40 mg PO DAILY@0800 1 Days Qty: 1 0RF isosorbide mononitrate 30 mg Tablet Extended Release 24 Hr 30 mg PO DAILY 30 Days Qty: 30 0RF doxycycline monohydrate 100 mg Capsule 100 mg PO BID 1 Days Qty: 1 0RF metoprolol tartrate 25 mg Tablet 75 mg PO BID 30 Days Qty: 180 0RF Continued levothyroxine 75 MCG tablet 50 mcg PO DAILY Hold Instructions: Resume on 12/08/21. Repeat thyroid function test after 2 weeks duloxetine 60 MG capsule 60 mg PO DAILY cholecalciferol (vitamin D3) 50,000 UNIT capsule 50,000 unit PO MO trazodone 50 MG tablet 50 mg PO QHS aspirin 81 MG tablet 81 mg PO DAILY bumetanide 0.5 mg tablet 0.5 mg PO BIDCM Qty: 0 0RF magnesium 200 mg Tablet 400 mg PO BID pregabalin [Lyrica] 50 mg Capsule 50 mg PO BID pravastatin 40 mg Tablet 40 mg PO QHS fenofibrate 160 mg Tablet 160 mg PO DAILY spironolactone 25 mg tablet 25 mg PO DAILY pantoprazole [Protonix] 40 mg tablet,delayed release (DR/EC) 40 mg PO BID ferrous sulfate [FeroSul] 325 mg (65 mg iron) tablet 325 mg PO TUTHFR acetaminophen 500 mg Tablet 1,000 mg PO Q8 Qty: 0 0RF minerals Tablet 1 tab PO BID melatonin 10 mg Tablet 10 mg PO QHS PreserVision AREDS-2 250-90-40-1 mg Capsule 1 tab PO BID insulin glargine [Lantus Solostar U-100 Insulin] 100 unit/mL (3 mL) Insulin Pen 18 unit SUBCUT QHS Discontinued donepezil [Aricept] 5 MG tablet 5 mg PO QHS amlodipine 5 MG tablet 5 mg PO DAILY Qty: 0 0RF Rx Instructions: Hold for SBP less than 130 mmHg isosorbide mononitrate 120 MG tablet 60 mg PO DAILY Qty: 0 0RF Rx Instructions: Hold for SBP less than 130 mmHg hydroxyzine pamoate [Vistaril] 25 mg Capsule 25 mg PO BID PRN (Reason: Anxiety) metoprolol tartrate 50 mg tablet 50 mg PO BID Rx Instructions: Hold for heart less than 60 or systolic blood pressure less than 100 mmHg. hydrocodone-acetaminophen 5-325 mg Tablet 1 tab PO Q4H PRN (Reason: Pain) Referrals / Follow Up: Roscoe Bradley MD [Primary Care Provider] - 06/05/22 1:20 pm Disposition Disposition (needs filled in before D/C Order can be placed): Home Health Service Charges/Coding Visit Charges Inpatient E&M: 78943 Disch Hosp
== END 2022-05-31 16:05 | disposition home health service (06) | DRG 291 ==
LOC: ED 11:03 → PCU 11:15
PROVIDERS: Admitting Provider Internal Medicine; Emergency Provider Emergency Medicine; PCP Family Medicine; Visit Provider Internal Medicine
DX: I11.0 Hypertensive heart disease with heart failure (principal); J96.01 Acute respiratory failure with hypoxia; I50.23 Acute on chronic systolic (congestive) heart failure; E87.20 Acidosis, unspecified; N17.9 Acute kidney failure, unspecified; J44.1 Chronic obstructive pulmonary disease with (acute) exacerbation; I27.20 Pulmonary hypertension, unspecified; E11.51 Type 2 diabetes mellitus with diabetic peripheral angiopathy without gangrene; D64.9 Anemia, unspecified; I48.0 Paroxysmal atrial fibrillation; F03.90 Unspecified dementia, unspecified severity, without behavioral disturbance, psychotic disturbance, mood disturbance, and anxiety; E03.9 Hypothyroidism, unspecified; I25.10 Atherosclerotic heart disease of native coronary artery without angina pectoris; E78.5 Hyperlipidemia, unspecified; E87.6 Hypokalemia; K21.9 Gastro-esophageal reflux disease without esophagitis; I25.5 Ischemic cardiomyopathy; Z95.810 Presence of automatic (implantable) cardiac defibrillator; Z87.891 Personal history of nicotine dependence; Z79.82 Long term (current) use of aspirin; Z66 Do not resuscitate; R00.8 Other abnormalities of heart beat; Z85.3 Personal history of malignant neoplasm of breast
CPT/HCPCS: 36415; 36600; 71045; 71275; 80048; 80053; 81001; 82803; 82962; 83605; 83735; 83880; 84100; 84443; 84484; 85025; 85610; 85730; 87040; 87086; 87426; 87633; 87811; 93005; 94640; 94667; 94668; 97110; 97116; 97162; 97166; 97530; 97535; 99251; 99285; J7040; Q9967; A4216; G0463; J1940

== ENCOUNTER 2022-06-22 13:17 | Emergency (ER) | payer MEDICARE, MEDICAID, SELFPAY ==
[2022-06-22 13:20] VITALS: BP 128/73; PULSE 81; RESP 22; TEMP 36.3; O2SAT 93; BMI 22.9
--- NOTE | 2022-06-22 13:21 | ED.RN ---
PT STARTS SCREAMING AT THIS RN TO GIVE ME SOME TIME. THIS RN ATTEMPTING TO TAKE A BLOOD PRESSURE, PT LEANS FORWARD SHAKING FINGER/HAND VIOLENTLY AT THIS RN YELLING. EVELYNE RN AND ALEXANDRE RN IN ROOM. PT STATES I DIDN'T DO IT
--- NOTE | 2022-06-22 14:00 | EKG12_ITS ---
Test Reason : SOB Blood Pressure : / mmHG Vent. Rate : 079 BPM Atrial Rate : 079 BPM P-R Int : 174 ms QRS Dur : 114 ms QT Int : 460 ms P-R-T Axes : 074 057 131 degrees QTc Int : 527 ms Sinus rhythm with frequent Premature ventricular complexes Incomplete left bundle branch block Left ventricular hypertrophy with repolarization abnormality ( Sokolow-Abernathy ) Prolonged QT Abnormal ECG When compared with ECG of 30-MAY-2022 18:28, Sinus rhythm has replaced Atrial fibrillation Nonspecific T wave abnormality no longer evident in Inferior leads Confirmed by DAYNA KILLIAN, COBY ([id number]), sports editor NOEMI ROJO ([id number]) on 06/27/2022 1:19:40 PM Referred By: MEE/AMNA Confirmed By:COBY MCINTOSH MD
--- NOTE | 2022-06-22 14:00 | RAD_ITS ---
STUDY: X-RAY CHEST REASON FOR EXAM: Female, 81 years old. Chest pain TECHNIQUE: Single AP portable view of the chest. COMPARISON: Comparison is made with prior study 05/26/2022. FINDINGS: EKG electrodes are seen. Surgical clips are seen in the left axillary region. The lungs are clear and expanded. There is no demonstrated pleural abnormality. Sternal cerclage wires and vascular clips are present from a prior sternotomy and coronary artery bypass graft procedure (CABG). A right-sided unipolar pacemaker is seen. The heart size is upper limits of normal. Normal mediastinum and devonte. Normal visualized pulmonary arteries. There is atherosclerotic calcification of the aortic arch with tortuosity. Normal visualized thoracic spine. Normal visualized ribs, clavicles, and shoulders. There is no demonstrated abnormality of the visualized soft tissue structures of the upper abdomen. RAD/Chest 1 View (Portable) IMPRESSION: No acute abnormality is seen. Electronically Signed: Sal Hui MD at 14:17 EDT ,
[2022-06-22 14:08] LABS: Absolute Neutrophil Count 7.3 X10^3/uL (2.0-7.7); Basophil# 0.08 X10^3/uL; Basophil% 0.7 % (0-1); Eosinophil# 0.85 X10^3/uL; Eosinophils% 7.9 % (0-5); Hematocrit 35.6 % (37-47); Hemoglobin 12.3 g/dL (12.0-15.0); Lymphocyte % 11.2 % (19-41); Mean Corp Hgb Conc 34.6 g/dL (32-36); Mean Corpuscular Hgb 36.3 pg (27.0-32.0); Mean Platelet Vol. 12.5 fl (6.2-12.0); Monocyte# 1.15 X10^3/uL; Monocyte% 10.7 % (0-10); NRBC Flagged by Analyzer 0.4 % (0-5); Neutrophil # 7.29 X10^3/uL (2.7-7.7); Neutrophil % 68.3 % (47-70); Platelet Count 299 K/mm3 (150-450); RBC Distribution Width CV 14.5 % (11.6-14.6); RBC Distribution Width SD 56.2 fl (35.1-43.9); Red Blood Count 3.39 M/mm3 (4.2-5.4); White Blood Count 10.7 K/mm3 (4.4-11.0)
[2022-06-22 14:24] LABS: Anion Gap 7 (5-15); BUN 10 mg/dL (7-18); BUN/Creat Ratio 12.7 RATIO (10-20); Calcium,Total 9.9 mg/dL (8.5-10.1); Chloride 101 mmol/L (98-107); Creatinine, Serum 0.79 mg/dL (0.55-1.02); EST Glomerular Filtration Rate 75 mL/min (>60); Est Glom Filt Rate - Afr Amer 90 mL/min (>60); Estimated Creatinine Clearance 38.75 ml/min; Glucose 155 mg/dL (74-106); Potassium 3.9 mmol/L (3.5-5.1); Sodium Level 137 mmol/L (136-145); Troponin-I HS (w/2H Reflex) 35 pg/mL (3.0-54.0)
--- NOTE | 2022-06-22 14:32 | EDS_ITS ---
HPI History of Present Illness Chief Complaint: Shortness of Breath Detail of Chief Complaint: Shortness of breath and attributes to congestive heart failure. Informant: patient Onset/Context/Timing Onset: Days Context: gradual Timing: Continuous Quality: Positive for Dyspnea on exertion and Wheezing; Negative for Orthopnea or PND Current Severity: Mild Maximum Severity: Moderate Worsened by: Exertion and Coughing; Not Worsened By Lying flat Relieved by: Nothing Associated Symptoms cough and post nasal drip; Negative for rhinorrhea, ear pain, fever, sore throat, subjective, chills, sweats, clear sputum, white sputum, yellow sputum or green sputum Chest Pain: Positive for None Narrative Narrative: Patient is a 81-year-old woman with history of CHF, ischemic cardiomyopathy, COPD, AICD, essential hypertension and diabetes. There is also history of paroxysmal H fibrillation. She presents with shortness of breath. She believes she is in heart failure. She is had no increased edema of her legs to her knowledge. She not a good informant. She also reports no orthopnea. She denies fever, chills night sweats. She does report mild congestion and postnasal drainage. Her cough is nonproductive. She denies GI symptoms. She denies urologic symptoms. PE Risk Factors: Negative for Cancer, OCP + Smoking + > 35, Prior DVT or PE, Recent immobilization, Recent surgery or Recent travel Prior similar symptoms: Yes (CHF) Recent Illness/Hospitalization: Yes (Congestive heart failure) [facility] Medical History Acute [place], inferoposterior wall, subsequent episode of care Anemia Angina pectoris Atherosclerotic heart disease of [place] coronary artery without angina pectoris Atrial fibrillation Blindness of both eyes Body mass index (bmi) 26.0-26.9, adult Breast cancer Cancer COPD (chronic obstructive pulmonary disease) Debility Dementia Diabetes mellitus Elevated troponin Essential hypertension Former smoker Hepatic insufficiency History of diabetes mellitus History of [place] (myocardial infarction) History of steroid therapy HLD (hyperlipidemia) HTN (hypertension) Hypothyroidism Implantable cardioverter-defibrillator (ICD) in situ Irregular heart beat Ischemic cardiomyopathy Monomorphic ventricular tachycardia Non-ST elevation (NSTEMI) myocardial infarction Nonalcoholic hepatosteatosis Nonrheumatic mitral valve regurgitation Nonrheumatic tricuspid (valve) insufficiency Old myocardial infarction Pacemaker Palpitations Paroxysmal a-fib Paroxysmal SVT (supraventricular tachycardia) Pre-syncope Presence of biventricular automatic cardioverter/defibrillator (AICD) Restless legs Right leg pain Sciatica Shortness of breath Shortness of breath Syncope Ventricular tachyarrhythmia Ventricular tachycardia (paroxysmal) Wears hearing aid in both ears Home Medications duloxetine 60 mg capsule,delayed release 60 mg PO DAILY depression 03/24/16 [History Last Taken 11/28/18] levothyroxine 75 mcg tablet 50 mcg PO DAILY thyroid 03/24/16 [History Last Taken 11/28/18] cholecalciferol (vitamin D3) 1,250 mcg (50,000 unit) capsule 50,000 unit PO MO supplement 09/18/16 [History Last Taken 11/25/18] trazodone 50 mg tablet 50 mg PO QHS sleep 10/11/18 [History Last Taken 11/27/18] aspirin 81 mg tablet,delayed release 81 mg PO DAILY heart health 11/28/18 [History Last Taken 11/28/18] bumetanide 0.5 mg tablet 0.5 mg PO BIDCM edema #0 tabs 11/25/21 [Rx Last Taken 11/28/18] magnesium 200 mg tablet 400 mg PO BID Supplement 12/16/21 [History Last Taken Unknown] pregabalin 50 mg capsule (Lyrica) 50 mg PO BID Nerve pain 12/16/21 [History Last Taken Unknown] fenofibrate 160 mg tablet 160 mg PO DAILY Cholesterol 01/08/22 [History Last Taken Unknown] ferrous sulfate 325 mg (65 mg iron) tablet (FeroSul) 325 mg PO TUTHFR Supplement 01/08/22 [History Last Taken Unknown] pantoprazole 40 mg tablet,delayed release (Protonix) 40 mg PO BID GERD 01/08/22 [History Last Taken Unknown] pravastatin 40 mg tablet 40 mg PO QHS Cholesterol 01/08/22 [History Last Taken Unknown] spironolactone 25 mg tablet 25 mg PO DAILY Water pill 01/08/22 [History Last Taken Unknown] acetaminophen 500 mg tablet 1,000 mg PO Q8 #0 tabs 01/11/22 [Rx Last Taken Unknown] melatonin 10 mg tablet 10 mg PO QHS Sleep 02/23/22 [History Last Taken Unknown] minerals 1 tab PO BID Supplement 02/23/22 [History Last Taken Unknown] vit C 250 mg-vit E 90 mg-zinc 40 mg-copper 1 [id number] capsule (PreserVision AREDS-2) 1 tab PO BID Supplement 02/23/22 [History Last Taken Unknown] insulin glargine 100 unit/mL (3 mL) subcutaneous pen (Lantus Solostar U-100 Insulin) 18 unit subcut QHS Diabetes 05/26/22 [History Last Taken Unknown] doxycycline monohydrate 100 mg capsule 100 mg PO BID 1 day #1 cap 05/31/22 [Rx Last Taken Unknown] isosorbide mononitrate 30 mg tablet,extended release 24 hr 30 mg PO DAILY 30 days #30 tabs 05/31/22 [Rx Last Taken Unknown] metoprolol tartrate 25 mg tablet 75 mg PO BID 30 days #180 tabs 05/31/22 [Rx Last Taken Unknown] prednisone 20 mg tablet 40 mg PO DAILY@0800 1 day #1 TAB 05/31/22 [Rx Last Taken Unknown] prednisone 20 mg tablet 60 mg PO DAILY #15 TABLETS 06/22/22 [Rx Last Taken Unknown] Allergy/AdvReac Type Severity Reaction Status Date / Time No Known Allergies Allergy Verified 02/23/22 13:22 Family History Son Asthma Father Cancer Mother Cancer Brother Cancer Surgical History Aortocoronary bypass status (~12/08/02) History of coronary artery stent placement History of mastectomy Postsurgical percutaneous transluminal coronary angioplasty (PTCA) status Presence of stent in coronary artery (~11/30/01) S/P implantation of automatic cardioverter/defibrillator (AICD) Social History household members: none Smoking Status: Former smoker alcohol intake: never substance use type: does not use ROS ROS ED Constitutional Constitutional ED: Denies chills, fever(s), sweats or weight loss Eyes Eyes: Denies blurry vision, change in vision or diplopia ENT ENT ED: Reports rhinorrhea; Denies ear pain or sore throat Cardiovascular Cardiovascular: Denies chest pain, orthopnea, palpitations, paroxysmal nocturnal dyspnea or racing heartbeat Respiratory/Chest Respiratory/Chest: Reports cough, dyspnea and dyspnea on exertion; Denies orthopnea or paroxysmal nocturnal dyspnea Gastrointestinal Gastrointestinal: Denies abdominal pain, constipation, diarrhea, melena, nausea or vomiting Genitourinary Genitourinary ED: Denies dysuria, hematuria, LMP (females 10-50) or urinary nuzhat quency Musculoskeletal Musculoskeletal: Denies arthralgias, back pain, myalgias or neck pain Integumentary Denies abscess, Abrasions or rash Neurologic Neurologic: Denies headache(s), paresthesias or weakness Psychiatric Psychiatric: Denies anxiety or depression Endocrine Endocrinology: Denies cold intolerance or heat intolerance Hematologic/Lymphatic Hematologic/Lymphatic: Denies easy bleeding or easy bruising EXAM Physical Exam Const Vital Signs: 06/22/22 13:20 06/22/22 13:25 06/22/22 14:53 Temperature 97.4 F L Temperature Source Temporal Pulse Rate 81 76 Respiratory Rate 22 H 18 Respiratory Effort Normal Non-Labored Respiratory Depth Normal Respiratory Pattern Normal Blood Pressure 128/73 H Blood Pressure Mean 91 Pulse Ox 93 Oxygen Delivery Method Room Air Nasal Cannula Oxygen Flow Rate (L/min) 1 06/22/22 14:53 06/22/22 15:30 Temperature Temperature Source Pulse Rate 76 Respiratory Rate 20 H Respiratory Effort Respiratory Depth Respiratory Pattern Blood Pressure 131/53 H Blood Pressure Mean 79 Pulse Ox 93 98 Oxygen Delivery Method Room Air Room Air Oxygen Flow Rate (L/min) Positive well nourished, well developed and obese Constitutional Narrative: Patient is mildly tachypneic. She is on oxygen presently. She is not on oxygen during the day. She is on oxygen at night. General Appearance ED: well developed and pallor; Negative for NAD Nutritional Appearance: obese HEENT Reports moist mucous membranes HEENT Narrative: Ears normal. Auditory canal normal. TM normal. Nares patent. Uvula midline. No deviation with protrusion. atraumatic Eyes PERRL and EOMs intact bilaterally General Eye ED: Negative for pale conjunctiva or scleral icterus Neck no lymphadenopathy, supple and no meningeal signs Resp No normal respiratory effort and No clear to auscultation bilaterally Auscultation: rales bilateral lower and wheezes expiratory wheezes and throughout Cardio no murmurs Rhythm: abnormal rhythm GI non-tender, non-distended and no masses Auscultation: normoactive bowel sounds Back/Spine no CVA tenderness Extremity normal to inspection General Extremety ED: Yes edema; Negative for tenderness or other findings General Extremity: edema; Negative for other findings Neuro oriented x3, CN's II-XII intact bilaterally and no sensory deficits noted [place] Coma Scale: document GCS findings Spontaneous Obeys Commands Oriented 15 Sensorium / Orientation: alert Speech: speech normal Psych mental status grossly normal Skin no wounds and skin turgor normal General Skin Exam: pallor; Negative for jaundice Lesions: no lesions Rashes: no rashes MDM MDM MDM Narrative Medical decision making narrative: Patient has expiratory wheezing with increased x-ray face. Suspect this is due to COPD. Doubt congestive heart failure. We will treat with DuoNeb, albuterol and Solu-Medrol. Nurse protocol orders were placed. Of note chest x-ray reveals chronic changes with no evidence of heart failure. There is no evidence of infiltrate either. Patient was reassessed at 1655. She is breathing normally. There is no wheezing. Patient was told the cause of her shortness rest was COPD. She was discharged with burst of prednisone. Troponin is within normal limits. With patient having symptoms for some time no further troponin was ordered. Further more patient's history is not consistent with cardiac risk. Lab Data Attestation: I reviewed the patient's lab results. Labs: Laboratory Results - last 24 hr 06/22/22 06/22/22 13:30 13:30 WBC 10.7 RBC 3.39 L Hgb 12.3 Hct 35.6 L MCV 105.0 H MCH 36.3 H MCHC 34.6 RDW Std Deviation 56.2 H RDW Coeff of Ella 14.5 Plt Count 299 MPV 12.5 H Immature Gran % (Auto) 1.200 H Neut % (Auto) 68.3 Lymph % (Auto) 11.2 L Cotton % (Auto) 10.7 H Eos % (Auto) 7.9 H Baso % (Auto) 0.7 Absolute Neuts (auto) 7.3 Absolute Lymphs (auto) 1.20 Nucleated RBC % 0.4 Sodium 137 Potassium 3.9 Chloride 101 Carbon Dioxide 29.0 Anion Gap 7 BUN 10 Creatinine 0.79 Estim Creat Clear Calc 38.75 Est GFR (MDRD) Af Amer 90 Est GFR (MDRD) Non-Af 75 BUN/Creatinine Ratio 12.7 Glucose 155 H Calcium 9.9 Troponin I High Sens 35 Radiography Chest X-Ray - ED: 2 View and Read by ED Physician (Chronic changes. Borderline cardiomegaly. No effusion, infiltrate or CHF. Perihilar regions unremarkable. Osseous trucks unremarkable. This was independently read and interpreted by me.) Diagnostic Testing: Clinical Impression(s) from Imaging Studies Chest X-Ray 06/22/22 14:00 IMPRESSION: No acute abnormality is seen. Electronically Signed: Sal Hui MD at 14:17 EDT , EKG Initial EKG: Attestation: I personally reviewed and interpreted this EKG as follows: Interpretation: Sinus Rhythm (Ventricular rate is 79. There are frequent premature complexes noted. NE interval is 174 ms. Cures duration 114 ms. Configurations consistent with an incomplete left bundle branch block. QT interval is 460 ms. [place] is normal. QTc is 527 which is prolonged.) Discharge Plan Triage Chief Complaint: Shortness of Breath ED Provider: Rj Barron Dx/Rx/DC Orders Clinical Impression: Acute exacerbation of chronic obstructive pulmonary disease (COPD), Essential hypertension, Acute bronchospasm, Family history of coronary artery disease Instructions: ED COPD Flare Prescriptions: New prednisone 20 mg tablet 60 mg PO DAILY Qty: 15 0RF No Action levothyroxine 75 MCG tablet 50 mcg PO DAILY Hold Instructions: Resume on 12/08/21. Repeat thyroid function test after 2 weeks duloxetine 60 MG capsule 60 mg PO DAILY cholecalciferol (vitamin D3) 50,000 UNIT capsule 50,000 unit PO MO trazodone 50 MG tablet 50 mg PO QHS aspirin 81 MG tablet 81 mg PO DAILY bumetanide 0.5 mg tablet 0.5 mg PO BIDCM Qty: 0 0RF magnesium 200 mg Tablet 400 mg PO BID pregabalin [Lyrica] 50 mg Capsule 50 mg PO BID pravastatin 40 mg Tablet 40 mg PO QHS fenofibrate 160 mg Tablet 160 mg PO DAILY spironolactone 25 mg tablet 25 mg PO DAILY pantoprazole [Protonix] 40 mg tablet,delayed release (DR/EC) 40 mg PO BID ferrous sulfate [FeroSul] 325 mg (65 mg iron) tablet 325 mg PO TUTHFR acetaminophen 500 mg Tablet 1,000 mg PO Q8 Qty: 0 0RF minerals Tablet 1 tab PO BID melatonin 10 mg Tablet 10 mg PO QHS PreserVision AREDS-2 250-90-40-1 mg Capsule 1 tab PO BID insulin glargine [Lantus Solostar U-100 Insulin] 100 unit/mL (3 mL) Insulin Pen 18 unit SUBCUT QHS prednisone 20 mg Tablet 40 mg PO DAILY@0800 1 Days Qty: 1 0RF isosorbide mononitrate 30 mg Tablet Extended Release 24 Hr 30 mg PO DAILY 30 Days Qty: 30 0RF doxycycline monohydrate 100 mg Capsule 100 mg PO BID 1 Days Qty: 1 0RF metoprolol tartrate 25 mg Tablet 75 mg PO BID 30 Days Qty: 180 0RF Primary Care Provider: Roscoe Bradley Referrals: Roscoe Bradley MD [Primary Care Provider] - 3-5 Days if not improving Disposition Disposition: Home, Self Care
[2022-06-22] MEDS: MethylPREDNISolone 125 MG/2 ML Vial IV (14:39)
[2022-06-22] MEDS: Ipratropium/Albuterol Sulfate 3 ML AMPUL.NEB INHALATION (14:51)
[2022-06-22 14:53] VITALS: PULSE 76; RESP 18; O2SAT 93
[2022-06-22] MEDS: Albuterol 2.5 MG/3 ML VIAL.NEB. INHALATION (14:55)
[2022-06-22 15:30] VITALS: BP 131/53; PULSE 76; RESP 20; O2SAT 98
[2022-06-22 16:03] LABS: Reflex Troponin-HS? (from REC) Y
[2022-06-22 17:11] LABS: Troponin-I HS 28 pg/mL (3.0-54.0)
--- NOTE | 2022-06-22 17:27 | ED.RN ---
PT'S SON CALLED AND UPDATED ON PT STATUS. SON IS GOING TO CONTACT PCP BECAUSE PT CONCENTRATOR IS NOT WORKING
== END 2022-06-22 17:32 | disposition home or self-care (01) ==
PROVIDERS: Emergency Medicine; Emergency Provider Emergency Medicine; PCP Family Medicine; Visit Provider Emergency Medicine
DX: J44.1 Chronic obstructive pulmonary disease with (acute) exacerbation (principal); I11.0 Hypertensive heart disease with heart failure; I50.9 Heart failure, unspecified; E11.9 Type 2 diabetes mellitus without complications; R09.82 Postnasal drip; E78.5 Hyperlipidemia, unspecified; I25.10 Atherosclerotic heart disease of native coronary artery without angina pectoris; J98.01 Acute bronchospasm; R06.02 Shortness of breath; Z79.52 Long term (current) use of systemic steroids; Z87.891 Personal history of nicotine dependence
CPT/HCPCS: 71045; 80048; 84484; 85025; 93005; 94640; 96374; 99285; A4216

== ENCOUNTER 2022-07-02 01:24 | Emergency (ER) | payer MEDICARE, MEDICAID, SELFPAY ==
[2022-07-02 01:25] VITALS: BP 103/39; PULSE 62; RESP 15; TEMP 36.1; O2SAT 92; BMI 23.1
[2022-07-02] MEDS: Ketorolac 30 MG/ML Syringe IM (03:18)
--- NOTE | 2022-07-02 04:34 | ED.VIS.BACK ---
HPI History of Present Illness Chief Complaint: Back Informant: patient and EMS Narrative Narrative: 81-year-old female presenting to the emergency room with a chief complaint of back pain. The patient states that she has had this pain since she was in her 20s. She sees Dr. Joyner for pain management and states that he does nothing for her. When I asked her why she is going she states for the back injections. She states that nobody prescribes anything for her pain and she thought that the other day she would get some pain medication but she did not. She states that she is blind but she can still drive. She states that she cannot move and the EMS needed to knock her door down but she is able to sit up in the bed. She notes that the only thing that is different with this pain compared to her normal pain is the intensity. She did not take anything different at home for the pain. She is on pregabalin but does not know why. She states that she has fibromyalgia but does not believe the diagnosis. But then she tells me that she hurts all over her body and her muscles hurt. She denies any urinary symptoms or change in bowel habits. She denies any rashes. There is been no trauma. No fever. No swelling to the area. There is no radicular symptoms at this time. No loss of bowel or bladder control. No saddle anesthesia. [facility] Medical History Acute [place], inferoposterior wall, subsequent episode of care Anemia Angina pectoris Atherosclerotic heart disease of [place] coronary artery without angina pectoris Atrial fibrillation Blindness of both eyes Body mass index (bmi) 26.0-26.9, adult Breast cancer Cancer COPD (chronic obstructive pulmonary disease) Debility Dementia Diabetes mellitus Elevated troponin Essential hypertension Former smoker Hepatic insufficiency History of diabetes mellitus History of [place] (myocardial infarction) History of steroid therapy HLD (hyperlipidemia) HTN (hypertension) Hypothyroidism Implantable cardioverter-defibrillator (ICD) in situ Irregular heart beat Ischemic cardiomyopathy Monomorphic ventricular tachycardia Non-ST elevation (NSTEMI) myocardial infarction Nonalcoholic hepatosteatosis Nonrheumatic mitral valve regurgitation Nonrheumatic tricuspid (valve) insufficiency Old myocardial infarction Pacemaker Palpitations Paroxysmal a-fib Paroxysmal SVT (supraventricular tachycardia) Pre-syncope Presence of biventricular automatic cardioverter/defibrillator (AICD) Restless legs Right leg pain Sciatica Shortness of breath Shortness of breath Syncope Ventricular tachyarrhythmia Ventricular tachycardia (paroxysmal) Wears hearing aid in both ears Home Medications duloxetine 60 mg capsule,delayed release 60 mg PO DAILY depression 03/24/16 [History Last Taken 11/28/18] levothyroxine 75 mcg tablet 50 mcg PO DAILY thyroid 03/24/16 [History Last Taken 11/28/18] cholecalciferol (vitamin D3) 1,250 mcg (50,000 unit) capsule 50,000 unit PO MO supplement 09/18/16 [History Last Taken 11/25/18] trazodone 50 mg tablet 50 mg PO QHS sleep 10/11/18 [History Last Taken 11/27/18] aspirin 81 mg tablet,delayed release 81 mg PO DAILY heart health 11/28/18 [History Last Taken 11/28/18] bumetanide 0.5 mg tablet 0.5 mg PO BIDCM edema #0 tabs 11/25/21 [Rx Last Taken 11/28/18] magnesium 200 mg tablet 400 mg PO BID Supplement 12/16/21 [History Last Taken Unknown] pregabalin 50 mg capsule (Lyrica) 50 mg PO BID Nerve pain 12/16/21 [History Last Taken Unknown] fenofibrate 160 mg tablet 160 mg PO DAILY Cholesterol 01/08/22 [History Last Taken Unknown] ferrous sulfate 325 mg (65 mg iron) tablet (FeroSul) 325 mg PO TUTHFR Supplement 01/08/22 [History Last Taken Unknown] pantoprazole 40 mg tablet,delayed release (Protonix) 40 mg PO BID GERD 01/08/22 [History Last Taken Unknown] pravastatin 40 mg tablet 40 mg PO QHS Cholesterol 01/08/22 [History Last Taken Unknown] spironolactone 25 mg tablet 25 mg PO DAILY Water pill 01/08/22 [History Last Taken Unknown] acetaminophen 500 mg tablet 1,000 mg PO Q8 #0 tabs 01/11/22 [Rx Last Taken Unknown] melatonin 10 mg tablet 10 mg PO QHS Sleep 02/23/22 [History Last Taken Unknown] minerals 1 tab PO BID Supplement 02/23/22 [History Last Taken Unknown] vit C 250 mg-vit E 90 mg-zinc 40 mg-copper 1 [id number] capsule (PreserVision AREDS-2) 1 tab PO BID Supplement 02/23/22 [History Last Taken Unknown] insulin glargine 100 unit/mL (3 mL) subcutaneous pen (Lantus Solostar U-100 Insulin) 18 unit subcut QHS Diabetes 05/26/22 [History Last Taken Unknown] doxycycline monohydrate 100 mg capsule 100 mg PO BID 1 day #1 cap 05/31/22 [Rx Last Taken Unknown] isosorbide mononitrate 30 mg tablet,extended release 24 hr 30 mg PO DAILY 30 days #30 tabs 05/31/22 [Rx Last Taken Unknown] metoprolol tartrate 25 mg tablet 75 mg PO BID 30 days #180 tabs 05/31/22 [Rx Last Taken Unknown] prednisone 20 mg tablet 40 mg PO DAILY@0800 1 day #1 TAB 05/31/22 [Rx Last Taken Unknown] prednisone 20 mg tablet 60 mg PO DAILY #15 TABLETS 06/22/22 [Rx Last Taken Unknown] hydrocodone-acetaminophen 5-325mg 5mg-325mg 1 tab PO Q6H PRN PRN Pain 3 days #10 TABLETS 07/02/22 [Rx Last Taken Unknown] Allergy/AdvReac Type Severity Reaction Status Date / Time No Known Allergies Allergy Verified 02/23/22 13:22 Family History Son Asthma Father Cancer Mother Cancer Brother Cancer Surgical History Aortocoronary bypass status (~12/08/02) History of coronary artery stent placement History of mastectomy Postsurgical percutaneous transluminal coronary angioplasty (PTCA) status Presence of stent in coronary artery (~11/30/01) S/P implantation of automatic cardioverter/defibrillator (AICD) Social History household members: none Smoking Status: Former smoker alcohol intake: never substance use type: does not use ROS ROS ED Constitutional Constitutional ED: Denies chills or weight loss Eyes Eyes: Denies change in vision or diplopia ENT ENT ED: Denies ear pain, rhinorrhea or sore throat Cardiovascular Cardiovascular: Denies chest pain, orthopnea, palpitations or racing heartbeat Respiratory/Chest Respiratory/Chest: Denies cough, dyspnea or orthopnea Gastrointestinal Gastrointestinal: Denies abdominal pain, diarrhea, nausea or vomiting Genitourinary Genitourinary ED: Denies dysuria, hematuria or urinary frequency Musculoskeletal Musculoskeletal: Reports back pain; Denies arthralgias or myalgias Integumentary Denies abscess or rash Neurologic Neurologic: Denies headache(s) or weakness Psychiatric Psychiatric: Denies anxiety, depression, suicidal ideation or suicidal thoughts Endocrine Endocrinology: Denies polydipsia, polyphagia or polyuria Allergic/Immunologic Allergic/Immunologic ED: Denies mouth swelling, tongue swelling or urticaria EXAM Physical Exam Narrative Exam Narrative: At times the patient appears to roll over put her fist in her mouth and chew on it and close her eyes as if she is asleep. I asked her if that she is asleep and she states no this is just what she does. She does not appear in any distress. Const Vital Signs: 07/02/22 01:25 Temperature 97 F L Temperature Source Temporal Pulse Rate 62 Respiratory Rate 15 Blood Pressure 103/39 L Blood Pressure Mean 60 Pulse Ox 92 Oxygen Delivery Method Room Air Positive well nourished and well developed General Appearance ED: well developed HEENT Reports normocephalic, head/scalp atraumatic and moist mucous membranes Eyes PERRL and EOMs intact bilaterally Neck no lymphadenopathy, supple and no JVD Resp normal respiratory effort and clear to auscultation bilaterally Cardio regular rate, regular rhythm and no murmurs GI normal to inspection, nondistended, normoactive bowel sounds and non-tender Palpation: soft Back/Spine no CVA tenderness Back/Spine Narrative: Patient has tenderness to palpation over the right lumbar paraspinal musculature. I do not appreciate a rash. There is no tissue texture changes to make me suspect underlying infection. There are no radicular symptoms. The patient is able to sit up in the bed. Extremity normal to inspection General Extremety ED: Negative for edema General Extremity: Negative for edema Neuro oriented x3 and CN's II-XII intact bilaterally Sensorium / Orientation: alert Motor Exam: strength 5/5 throughout Deep Tendon Reflexes: Rt Patellar (L4): 2+, Lt Patellar (L4): 2+, Rt Ankle (S1): 2+ and Lt Ankle (S1): 2+ Deep Tendon Reflexes Back: Rt Patellar (L4): 2+, Lt Patellar (L4): 2+, Rt Ankle (S1): 2+ and Lt Ankle (S1): 2+ Psych mental status grossly normal Mood & Affect: Negative for depressed or tearful Skin no rashes or lesions noted and no wounds MDM MDM MDM Narrative Medical decision making narrative: Based on the history of the patient I think she is embellishing her symptomology. She tells me that she is blind but she still drives at times. She tells me she cannot move but at other times sits up in the bed without any difficulty. She tells me that she is all alone in the world and there is nobody that can come and pick her up because her son is blind. She states she has no way home. However she appears neurologically intact without any deficits. I think this is most likely acute on chronic pain. I can write for some pain medication but really the patient should continue with pain management. Discharge Plan Triage Chief Complaint: Back ED Provider: Chavo Grey Dx/Rx/DC Orders Clinical Impression: Acute exacerbation of chronic low back pain Instructions: ED Back Pain (Acute or Chronic) Prescriptions: New hydrocodone-acetaminophen [hydrocodone-acetaminophen] 5-325 mg tablet 1 tab PO Q6H PRN PRN (Reason: Pain) 3 Days Qty: 10 0RF No Action levothyroxine 75 MCG tablet 50 mcg PO DAILY Hold Instructions: Resume on 12/08/21. Repeat thyroid function test after 2 weeks duloxetine 60 MG capsule 60 mg PO DAILY cholecalciferol (vitamin D3) 50,000 UNIT capsule 50,000 unit PO MO trazodone 50 MG tablet 50 mg PO QHS aspirin 81 MG tablet 81 mg PO DAILY bumetanide 0.5 mg tablet 0.5 mg PO BIDCM Qty: 0 0RF magnesium 200 mg Tablet 400 mg PO BID pregabalin [Lyrica] 50 mg Capsule 50 mg PO BID pravastatin 40 mg Tablet 40 mg PO QHS fenofibrate 160 mg Tablet 160 mg PO DAILY spironolactone 25 mg tablet 25 mg PO DAILY pantoprazole [Protonix] 40 mg tablet,delayed release (DR/EC) 40 mg PO BID ferrous sulfate [FeroSul] 325 mg (65 mg iron) tablet 325 mg PO TUTHFR acetaminophen 500 mg Tablet 1,000 mg PO Q8 Qty: 0 0RF minerals Tablet 1 tab PO BID melatonin 10 mg Tablet 10 mg PO QHS PreserVision AREDS-2 250-90-40-1 mg Capsule 1 tab PO BID insulin glargine [Lantus Solostar U-100 Insulin] 100 unit/mL (3 mL) Insulin Pen 18 unit SUBCUT QHS prednisone 20 mg Tablet 40 mg PO DAILY@0800 1 Days Qty: 1 0RF isosorbide mononitrate 30 mg Tablet Extended Release 24 Hr 30 mg PO DAILY 30 Days Qty: 30 0RF doxycycline monohydrate 100 mg Capsule 100 mg PO BID 1 Days Qty: 1 0RF metoprolol tartrate 25 mg Tablet 75 mg PO BID 30 Days Qty: 180 0RF prednisone 20 mg tablet 60 mg PO DAILY Qty: 15 0RF Primary Care Provider: Roscoe Bradley Referrals: Roscoe Bradley MD [Primary Care Provider] - As soon as possible Disposition Disposition: Home, Self Care
--- NOTE | 2022-07-02 08:10 | NURSING ---
CALLED [facility], ETA IS 60 TO 90
[2022-07-02 08:36] VITALS: BP 101/61; PULSE 61; RESP 16; O2SAT 90
== END 2022-07-02 08:41 | disposition home or self-care (01) ==
PROVIDERS: Emergency Provider Emergency Medicine; PCP Family Medicine; Visit Provider Emergency Medicine
DX: M54.50 Low back pain, unspecified (principal); J44.9 Chronic obstructive pulmonary disease, unspecified; E11.9 Type 2 diabetes mellitus without complications; G89.29 Other chronic pain; I25.10 Atherosclerotic heart disease of native coronary artery without angina pectoris; E78.5 Hyperlipidemia, unspecified; I10 Essential (primary) hypertension; Z79.52 Long term (current) use of systemic steroids; Z87.891 Personal history of nicotine dependence
CPT/HCPCS: 99284; 96372

== ENCOUNTER 2022-07-03 11:09 | Observation (INO) | payer MEDICARE, MEDICAID, SELFPAY ==
[2022-07-03 11:30] VITALS: BP 131/106; PULSE 76; RESP 14; TEMP 36.3; O2SAT 96; BMI 22.3
--- NOTE | 2022-07-03 13:22 | CM.ED ---
SW was contacted by Bob Ford from [facility]. He voiced that patient reports she has chronic back pain. Patient sees a pain medicine MD, Akilah, and per patient she saw him last week and he would not prescribe any new pain medication. Logan said that patient can't take care of herself and has refused SNF placement in the past. Patient has been to the ED 3x this month. Patient has a casemanager, Nicole Vieyra [phone] and has home health aides through [facility] and her skillable services (RN) are through [facility]. Per María Ford patient is frail and eats very little. Logan said that today patient had agreed to go to SNF. Due to patient coming to the ED and requesting pain medication home hospice aideDARCY Gonzalez recommended a care plan for her. Radha KELLY
--- NOTE | 2022-07-03 14:24 | CM.ED ---
TOYIN Note SW met with patient. Patient said it is going bad at home. SW asked patient if she wanted SNF and she inquired if she went could they help her back. SW asked patient where she has been in the past and she said [facility] and a place in [place]. Patient said that she did not want to go to [place] as it was to far for my son. Patient said that her first choice of SNF is [facility]. Radha KELLY
--- NOTE | 2022-07-03 14:34 | RAD_ITS ---
STUDY: X-RAY - LUMBAR SPINE REASON FOR EXAM: Female, 82 years old. Pain TECHNIQUE: 2 view(s) of the lumbar spine were obtained. COMPARISON: Comparison is made with prior study 02/23/2022. FINDINGS: Normal lumbar lordosis. There is no substantial scoliosis. There is a normal alignment of the vertebrae. There is diffuse demineralization with multi-level endplate spondylosis. Mild loss of height of the superior endplate of the L1 vertebrae. This has progressed as compared to prior study. There is multi-level degenerative disc disease with multi-level disc space narrowing. There is no demonstrated fracture. There is atherosclerotic calcification of the abdominal aorta without a demonstrated aneurysm. Moderate amount of fecal material is seen in the colon. RAD/Lumbar Spine 2 or 3 Views IMPRESSION: Degenerative changes of the spine, as detailed above. Mild loss of height of the superior endplate of the L1 vertebrae. This has progressed as compared to prior study. Electronically Signed: Sal Hui MD at 15:29 EST ,
--- NOTE | 2022-07-03 14:34 | ED.VIS.BACK ---
HPI History of Present Illness Chief Complaint: Back Narrative Narrative: Patient presents with low back pain, history of low back pain since her 20s, she sees pain management. She was recently seen in our emergency department but today she could not even get out of bed due to this chronic back pain. She has no fever or chills she has no weakness she just has quite a bit of pain. She has no urinary retention or incontinence. [facility] Medical History Acute [place], inferoposterior wall, subsequent episode of care Anemia Angina pectoris Atherosclerotic heart disease of [place] coronary artery without angina pectoris Atrial fibrillation Blindness of both eyes Body mass index (bmi) 26.0-26.9, adult Breast cancer Cancer COPD (chronic obstructive pulmonary disease) Debility Dementia Diabetes mellitus Elevated troponin Essential hypertension Former smoker Hepatic insufficiency History of diabetes mellitus History of [place] (myocardial infarction) History of steroid therapy HLD (hyperlipidemia) HTN (hypertension) Hypothyroidism Implantable cardioverter-defibrillator (ICD) in situ Irregular heart beat Ischemic cardiomyopathy Monomorphic ventricular tachycardia Non-ST elevation (NSTEMI) myocardial infarction Nonalcoholic hepatosteatosis Nonrheumatic mitral valve regurgitation Nonrheumatic tricuspid (valve) insufficiency Old myocardial infarction Pacemaker Palpitations Paroxysmal a-fib Paroxysmal SVT (supraventricular tachycardia) Pre-syncope Presence of biventricular automatic cardioverter/defibrillator (AICD) Restless legs Right leg pain Sciatica Shortness of breath Shortness of breath Syncope Ventricular tachyarrhythmia Ventricular tachycardia (paroxysmal) Wears hearing aid in both ears Home Medications duloxetine 60 mg capsule,delayed release 60 mg PO DAILY depression 03/24/16 [History Last Taken 11/28/18] levothyroxine 75 mcg tablet 50 mcg PO DAILY thyroid 03/24/16 [History Last Taken 11/28/18] cholecalciferol (vitamin D3) 1,250 mcg (50,000 unit) capsule 50,000 unit PO MO supplement 09/18/16 [History Last Taken 11/25/18] trazodone 50 mg tablet 50 mg PO QHS sleep 10/11/18 [History Last Taken 11/27/18] aspirin 81 mg tablet,delayed release 81 mg PO DAILY heart health 11/28/18 [History Last Taken 11/28/18] bumetanide 0.5 mg tablet 0.5 mg PO BIDCM edema #0 tabs 11/25/21 [Rx Last Taken 11/28/18] magnesium 200 mg tablet 400 mg PO BID Supplement 12/16/21 [History Last Taken Unknown] pregabalin 50 mg capsule (Lyrica) 50 mg PO BID Nerve pain 12/16/21 [History Last Taken Unknown] fenofibrate 160 mg tablet 160 mg PO DAILY Cholesterol 01/08/22 [History Last Taken Unknown] ferrous sulfate 325 mg (65 mg iron) tablet (FeroSul) 325 mg PO TUTHFR Supplement 01/08/22 [History Last Taken Unknown] pantoprazole 40 mg tablet,delayed release (Protonix) 40 mg PO BID GERD 01/08/22 [History Last Taken Unknown] pravastatin 40 mg tablet 40 mg PO QHS Cholesterol 01/08/22 [History Last Taken Unknown] spironolactone 25 mg tablet 25 mg PO DAILY Water pill 01/08/22 [History Last Taken Unknown] acetaminophen 500 mg tablet 1,000 mg PO Q8 #0 tabs 01/11/22 [Rx Last Taken Unknown] melatonin 10 mg tablet 10 mg PO QHS Sleep 02/23/22 [History Last Taken Unknown] minerals 1 tab PO BID Supplement 02/23/22 [History Last Taken Unknown] vit C 250 mg-vit E 90 mg-zinc 40 mg-copper 1 [id number] capsule (PreserVision AREDS-2) 1 tab PO BID Supplement 02/23/22 [History Last Taken Unknown] insulin glargine 100 unit/mL (3 mL) subcutaneous pen (Lantus Solostar U-100 Insulin) 18 unit subcut QHS Diabetes 05/26/22 [History Last Taken Unknown] doxycycline monohydrate 100 mg capsule 100 mg PO BID 1 day #1 cap 05/31/22 [Rx Last Taken Unknown] isosorbide mononitrate 30 mg tablet,extended release 24 hr 30 mg PO DAILY 30 days #30 tabs 05/31/22 [Rx Last Taken Unknown] metoprolol tartrate 25 mg tablet 75 mg PO BID 30 days #180 tabs 05/31/22 [Rx Last Taken Unknown] prednisone 20 mg tablet 40 mg PO DAILY@0800 1 day #1 TAB 05/31/22 [Rx Last Taken Unknown] prednisone 20 mg tablet 60 mg PO DAILY #15 TABLETS 06/22/22 [Rx Last Taken Unknown] hydrocodone-acetaminophen 5-325mg 5mg-325mg 1 tab PO Q6H PRN PRN Pain 3 days #10 TABLETS 07/02/22 [Rx Last Taken Unknown] Allergy/AdvReac Type Severity Reaction Status Date / Time No Known Allergies Allergy Verified 07/03/22 11:35 Family History Son Asthma Father Cancer Mother Cancer Brother Cancer Surgical History Aortocoronary bypass status (~12/08/02) History of coronary artery stent placement History of mastectomy Postsurgical percutaneous transluminal coronary angioplasty (PTCA) status Presence of stent in coronary artery (~11/30/01) S/P implantation of automatic cardioverter/defibrillator (AICD) Social History household members: none Smoking Status: Former smoker alcohol intake: never substance use type: does not use ROS ROS ED ROS Narrative Past medical history: Reviewed, it is quite extensive, includes chronic back pain, COPD, history of kidney disease, history of GI bleed, hypertension, [place], diabetes, AICD [facility]. Social history: Lives alone. Review of systems: All systems negative except as indicated General: No fever Eyes: No visual changes ENT: No upper airway congestion, normal voice Neck: No neck pain Cardiovascular: No chest pain Respiratory: No shortness of breath or cough Gastrointestinal: No abdominal pain, nausea vomiting or diarrhea Genitourinary: No dysuria Musculoskeletal: Back pain as in HPI Skin: No rash Neurological: No memory loss, confusion or any focal weakness Psych: No recent behavioral changes Hematologic: No easy bleeding or easy bruising EXAM Physical Exam Narrative Exam Narrative: Physical exam General: Patient appears somewhat uncomfortable Head: Normocephalic, Atraumatic Eyes: Conjunctiva not pale ENT: Moist mucous membranes Neck: Supple, Nontender, No lymphadenopathy Cardiovascular: Regular rate, Regular rhythm Respiratory: No distress, CTA bilaterally Abdomen: Soft, Nontender, Nondistended. No suprapubic pain or mass. Back: Spinal and paraspinal tenderness present but only in the lumbar region. Extremities: Nontender, No edema Skin: Normal color, No rash Neurological: Alert, Normal Strength, Normal Sensation. Patellar and Achilles reflexes are unremarkable. Psychological: Normal affect Const Vital Signs: 07/03/22 11:30 Temperature 97.3 F L Temperature Source Temporal Pulse Rate 76 Respiratory Rate 14 Blood Pressure 131/106 H Blood Pressure Mean 114 Pulse Ox 96 Oxygen Delivery Method Room Air MDM MDM MDM Narrative Medical decision making narrative: Patient has chronic back pain, however it is clear to us the right now she is not thriving at home, I will give her analgesia in the emergency department but she will not be able to be discharged I talked to the patient and social work will plan on an ECF placement however she will need to be hospitalized for secondary to insurance reasons. Discharge Plan Triage Chief Complaint: Back ED Provider: Jimmy Pineda Dx/Rx/DC Orders Clinical Impression: Back pain, Weakness, Chronic pain Prescriptions: No Action levothyroxine 75 MCG tablet 50 mcg PO DAILY Hold Instructions: Resume on 12/08/21. Repeat thyroid function test after 2 weeks duloxetine 60 MG capsule 60 mg PO DAILY cholecalciferol (vitamin D3) 50,000 UNIT capsule 50,000 unit PO MO trazodone 50 MG tablet 50 mg PO QHS aspirin 81 MG tablet 81 mg PO DAILY bumetanide 0.5 mg tablet 0.5 mg PO BIDCM Qty: 0 0RF magnesium 200 mg Tablet 400 mg PO BID pregabalin [Lyrica] 50 mg Capsule 50 mg PO BID pravastatin 40 mg Tablet 40 mg PO QHS fenofibrate 160 mg Tablet 160 mg PO DAILY spironolactone 25 mg tablet 25 mg PO DAILY pantoprazole [Protonix] 40 mg tablet,delayed release (DR/EC) 40 mg PO BID ferrous sulfate [FeroSul] 325 mg (65 mg iron) tablet 325 mg PO TUTHFR acetaminophen 500 mg Tablet 1,000 mg PO Q8 Qty: 0 0RF minerals Tablet 1 tab PO BID melatonin 10 mg Tablet 10 mg PO QHS PreserVision AREDS-2 250-90-40-1 mg Capsule 1 tab PO BID insulin glargine [Lantus Solostar U-100 Insulin] 100 unit/mL (3 mL) Insulin Pen 18 unit SUBCUT QHS prednisone 20 mg Tablet 40 mg PO DAILY@0800 1 Days Qty: 1 0RF isosorbide mononitrate 30 mg Tablet Extended Release 24 Hr 30 mg PO DAILY 30 Days Qty: 30 0RF doxycycline monohydrate 100 mg Capsule 100 mg PO BID 1 Days Qty: 1 0RF metoprolol tartrate 25 mg Tablet 75 mg PO BID 30 Days Qty: 180 0RF prednisone 20 mg tablet 60 mg PO DAILY Qty: 15 0RF hydrocodone-acetaminophen [hydrocodone-acetaminophen] 5-325 mg tablet 1 tab PO Q6H PRN PRN (Reason: Pain) 3 Days Qty: 10 0RF Primary Care Provider: Roscoe Bradley Referrals: Roscoe Bradley MD [Primary Care Provider] - Disposition Disposition: Acute Care Hospital [facility]
[2022-07-03] MEDS: Ondansetron 4 MG/2 ML Vial IV (14:52)
[2022-07-03] MEDS: Morphine 2 MG/ML Syringe IV (14:52)
[2022-07-03 14:56] VITALS: PULSE 76; RESP 14; O2SAT 99
[2022-07-03 15:09] LABS: Absolute Lymphocyte Count 1.11 X10^3/uL (0.83-4.51); Absolute Neutrophil Count 11.1 X10^3/uL (2.0-7.7); Basophil# 0.08 X10^3/uL; Basophil% 0.6 % (0-1); Eosinophil# 0.58 X10^3/uL; Eosinophils% 4.1 % (0-5); Hematocrit 37.1 % (37-47); Hemoglobin 12.4 g/dL (12.0-15.0); Lymphocyte # 1.11 X10^3/ul (0.83-4.51); Lymphocyte % 7.8 % (19-41); Mean Corp Hgb Conc 33.4 g/dL (32-36); Mean Corpuscular Hgb 35.2 pg (27.0-32.0); Mean Corpuscular Volume 105.4 fL (81-99); Mean Platelet Vol. 12.7 fl (6.2-12.0); Monocyte# 1.19 X10^3/uL; Monocyte% 8.3 % (0-10); NRBC Flagged by Analyzer 0.1 % (0-5); Neutrophil # 11.14 X10^3/uL (2.7-7.7); Neutrophil % 77.9 % (47-70); Platelet Count 198 K/mm3 (150-450); RBC Distribution Width CV 15.1 % (11.6-14.6); RBC Distribution Width SD 58.4 fl (35.1-43.9); Red Blood Count 3.52 M/mm3 (4.2-5.4); White Blood Count 14.3 K/mm3 (4.4-11.0)
[2022-07-03 15:18] LABS: ALB/GLOB Ratio 0.9 RATIO (0.9-2.4); AST(SGOT) 32 U/L (15-37); Alanine Aminotransfer ALT/SGPT 21 U/L (13-56); Albumin, Serum 3.2 g/dL (3.2-5.0); Alkaline Phosphatase 43 U/L (45-117); Anion Gap 5 (5-15); BUN 18 mg/dL (7-18); BUN/Creat Ratio 20.6 RATIO (10-20); Calcium,Total 9.8 mg/dL (8.5-10.1); Chloride 99 mmol/L (98-107); Creatinine, Serum 0.87 mg/dL (0.55-1.02); EST Glomerular Filtration Rate 66 mL/min (>60); Est Glom Filt Rate - Afr Amer 80 mL/min (>60); Estimated Creatinine Clearance 43.79 ml/min; Globulin 3.5 g/dL (2.2-4.2); Glucose 151 mg/dL (74-106); Potassium 3.6 mmol/L (3.5-5.1); Protein, Total 6.7 g/dL (6.4-8.2); Sodium Level 139 mmol/L (136-145)
--- NOTE | 2022-07-03 15:33 | HP.PCM.HOS_ITS ---
HPI - General General Date of Admission: 07/03/22 Date of Service: 07/03/22 Chief Complaint: lower back pain HPI Narrative KATEY CROSS, is a 82 F with a PMH as outlined who presents via the ED on 07/03/2022 with a complaint of lower back pain. She follows up with pain management for chronic lower back pain. However, the pain was much more severe than usual today and she couldnt even get out of bed. She denied any numbness or tingling or any urinary incontinence. Review of systems was otherwise negative Vitals were unremarkable, and CBC and BMP were unremarkable. She is being admitted to be managed for intractable acute on chronic back pain and debility due to back pain. [facility] Medical History Acute PA, inferoposterior wall, subsequent episode of care Anemia Angina pectoris Atherosclerotic heart disease of [place] coronary artery without angina pectoris Atrial fibrillation Blindness of both eyes Body mass index (bmi) 26.0-26.9, adult Breast cancer Cancer COPD (chronic obstructive pulmonary disease) Debility Dementia Diabetes mellitus Elevated troponin Essential hypertension Former smoker Hepatic insufficiency History of diabetes mellitus History of PA (myocardial infarction) History of steroid therapy HLD (hyperlipidemia) HTN (hypertension) Hypothyroidism Implantable cardioverter-defibrillator (ICD) in situ Irregular heart beat Ischemic cardiomyopathy Monomorphic ventricular tachycardia Non-ST elevation (NSTEMI) myocardial infarction Nonalcoholic hepatosteatosis Nonrheumatic mitral valve regurgitation Nonrheumatic tricuspid (valve) insufficiency Old myocardial infarction Pacemaker Palpitations Paroxysmal a-fib Paroxysmal SVT (supraventricular tachycardia) Pre-syncope Presence of biventricular automatic cardioverter/defibrillator (AICD) Restless legs Right leg pain Sciatica Shortness of breath Shortness of breath Syncope Ventricular tachyarrhythmia Ventricular tachycardia (paroxysmal) Wears hearing aid in both ears Home Medications duloxetine 60 mg capsule,delayed release 60 mg PO DAILY depression 03/24/16 [History Last Taken 11/28/18] levothyroxine 75 mcg tablet 50 mcg PO DAILY thyroid 03/24/16 [History Last Taken 11/28/18] cholecalciferol (vitamin D3) 1,250 mcg (50,000 unit) capsule 50,000 unit PO MO supplement 09/18/16 [History Last Taken 11/25/18] trazodone 50 mg tablet 50 mg PO QHS sleep 10/11/18 [History Last Taken 11/27/18] aspirin 81 mg tablet,delayed release 81 mg PO DAILY heart health 11/28/18 [History Last Taken 11/28/18] bumetanide 0.5 mg tablet 0.5 mg PO BIDCM edema #0 tabs 11/25/21 [Rx Last Taken 11/28/18] magnesium 200 mg tablet 400 mg PO BID Supplement 12/16/21 [History Last Taken Unknown] pregabalin 50 mg capsule (Lyrica) 50 mg PO BID Nerve pain 12/16/21 [History Last Taken Unknown] fenofibrate 160 mg tablet 160 mg PO DAILY Cholesterol 01/08/22 [History Last Taken Unknown] ferrous sulfate 325 mg (65 mg iron) tablet (FeroSul) 325 mg PO TUTHFR Supplement 01/08/22 [History Last Taken Unknown] pantoprazole 40 mg tablet,delayed release (Protonix) 40 mg PO BID GERD 01/08/22 [History Last Taken Unknown] pravastatin 40 mg tablet 40 mg PO QHS Cholesterol 01/08/22 [History Last Taken Unknown] spironolactone 25 mg tablet 25 mg PO DAILY Water pill 01/08/22 [History Last Taken Unknown] acetaminophen 500 mg tablet 1,000 mg PO Q8 #0 tabs 01/11/22 [Rx Last Taken Unknown] melatonin 10 mg tablet 10 mg PO QHS Sleep 02/23/22 [History Last Taken Unknown] minerals 1 tab PO BID Supplement 02/23/22 [History Last Taken Unknown] vit C 250 mg-vit E 90 mg-zinc 40 mg-copper 1 [id number] capsule (PreserVision AREDS-2) 1 tab PO BID Supplement 02/23/22 [History Last Taken Unknown] insulin glargine 100 unit/mL (3 mL) subcutaneous pen (Lantus Solostar U-100 Insulin) 18 unit subcut QHS Diabetes 05/26/22 [History Last Taken Unknown] doxycycline monohydrate 100 mg capsule 100 mg PO BID 1 day #1 cap 05/31/22 [Rx Last Taken Unknown] isosorbide mononitrate 30 mg tablet,extended release 24 hr 30 mg PO DAILY 30 days #30 tabs 05/31/22 [Rx Last Taken Unknown] metoprolol tartrate 25 mg tablet 75 mg PO BID 30 days #180 tabs 05/31/22 [Rx Last Taken Unknown] prednisone 20 mg tablet 40 mg PO DAILY@0800 1 day #1 TAB 05/31/22 [Rx Last Taken Unknown] prednisone 20 mg tablet 60 mg PO DAILY #15 TABLETS 06/22/22 [Rx Last Taken Unknown] hydrocodone-acetaminophen 5-325mg 5mg-325mg 1 tab PO Q6H PRN PRN Pain 3 days #10 TABLETS 07/02/22 [Rx Last Taken Unknown] Allergy/AdvReac Type Severity Reaction Status Date / Time No Known Allergies Allergy Verified 07/03/22 11:35 Family History Son Asthma Father Cancer Mother Cancer Brother Cancer Surgical History Aortocoronary bypass status (~12/08/02) History of coronary artery stent placement History of mastectomy Postsurgical percutaneous transluminal coronary angioplasty (PTCA) status Presence of stent in coronary artery (~11/30/01) S/P implantation of automatic cardioverter/defibrillator (AICD) Social History household members: none Smoking Status: Former smoker alcohol intake: never substance use type: does not use ROS Constitutional Constitutional: Reports weakness; Denies anorexia, chills, fatigue, fever(s) or malaise Eyes Eyes: Denies change in vision ENT HEENT: Denies dysphagia, headache(s) or sore throat Cardiovascular Cardiovascular: Denies chest pain, dyspnea on exertion, edema, lightheadedness, orthopnea, palpitations, rapid heart rate or syncope Respiratory/Chest Respiratory/Chest: Denies cough, dyspnea, shortness of breath at rest, shortness of breath with exertion or wheezing Gastrointestinal Gastrointestinal: Denies abdominal pain, nausea or vomiting Genitourinary Genitourinary: Denies burning urination, difficulty urinating, dysuria or iwona turia Musculoskeletal Musculoskeletal: Reports back pain; Denies arthralgias, joint pain, joint stiffness, joint swelling, myalgias or neck pain Neurologic Neurologic: Denies confusion, dizziness, focal weakness, headache(s), numbness, seizures or syncope Psychiatric Psychiatric: Denies anxiety Vital Signs Vital Signs Vital Signs: 07/03/22 11:30 07/03/22 14:56 Temperature 97.3 F L Temperature Source Temporal Pulse Rate 76 76 Respiratory Rate 14 14 Blood Pressure 131/106 H Blood Pressure Mean 114 Pulse Ox 96 99 Oxygen Delivery Method Room Air Room Air Weight Weight: 130 lb Body Mass Index (BMI) 22.3 Physical Exam Const alert, oriented x3 and no apparent distress General Appearance: cooperative Orientation / Consciousness: confused HEENT normocephalic, head/scalp atraumatic, hearing grossly normal bilaterally and moist oral mucous membranes Mouth: oral and palatal mucosa normal Eyes PERRL, EOMs intact bilaterally and conjunctivae normal Neck no lymphadenopathy, supple and no JVD Resp normal respiratory effort, no retractions, no use of accessory muscles and clear to auscultation bilaterally Cardio regular rate, regular rhythm, S1 normal heart sound, S2 normal heart sound and no murmurs GI normal to inspection, nondistended, normoactive bowel sounds, soft to palpation, non-tender and non-distended Extremity normal to inspection, full ROM and no clubbing, cyanosis or edema Neuro oriented x3, CN's II-XII intact bilaterally, moves all extremities and no focal motor deficits Sensorium / Orientation: awake and alert Motor Exam: strength 5/5 throughout Psych affect normal Results Lab / Micro Data Result Diagrams: 07/03/22 14:50 07/03/22 14:50 Labs: Laboratory Results - last 24 hr 07/03/22 14:50: WBC 14.3 H, RBC 3.52 L, Hgb 12.4, Hct 37.1, MCV 105.4 H, MCH 35.2 H, MCHC 33.4, RDW Std Deviation 58.4 H, RDW Coeff of Ella 15.1 H, Plt Count 198, MPV 12.7 H, Immature Gran % (Auto) 1.300 H, Neut % (Auto) 77.9 H, Lymph % (Auto) 7.8 L, [place] % (Auto) 8.3, Eos % (Auto) 4.1, Baso % (Auto) 0.6, Absolute Neuts (auto) 11.1 H, Absolute Lymphs (auto) 1.11, Nucleated RBC % 0.1 07/03/22 14:50: Sodium 139, Potassium 3.6, Chloride 99, Carbon Dioxide 35.0 H, Anion Gap 5, BUN 18, Creatinine 0.87, Estim Creat Clear Calc 43.79, Est GFR (MDRD) Af Amer 80, Est GFR (MDRD) Non-Af 66, BUN/Creatinine Ratio 20.6 H, Glucose 151 H, Calcium 9.8, Total Bilirubin 1.20 H, AST 32, ALT 21, Alkaline Phosphatase 43 L, Total Protein 6.7, Albumin 3.2, Globulin 3.5, Albumin/Globulin Ratio 0.9 Radiology Impression Lumbar Spine X-Ray 07/03/22 14:34 IMPRESSION: Degenerative changes of the spine, as detailed above. Mild loss of height of the superior endplate of the L1 vertebrae. This has progressed as compared to prior study. Electronically Signed: Sal Hui MD at 15:29 EST , Assessment & Plan Assessment/Plan (1) Acute exacerbation of chronic low back pain: (2) Weakness: PLAN: Plan #Debility due to intractable acute on chronic low back pain * admit to med surg * she does have a history of sciatica * consult PT/OT * fall precautions * PO tylenol, PO oxycodone and IV morphine prn for pain * #Hypothyroidism: on synthroid #Hyperlipidemia: on fenofibrate and pravastatin #Hypertension: on spironolactone and metoprolol #COPD: not in exacerbation. Breathing treatment with bronchodilators #History of Vtach * has ICD in situ. * on amiodarone * #HFrEF * on bumex and aldactone * not in exacerbation * #Peripheral vascular disease: on statin #Dementia: on aricept DVT prophylaxis; lovenox Code status: * Patient counseled extensively about different types of CODE STATUS including full code, DNR CCA and DNR CCA. Patient elects to be full code. * Total [id number] time 17 minutes. Disposition: agreeable to placement. Case management and social work consulted. Med rec not done as patient doesnt remember her pharmacy or her meds. Per nursing, pharmacy will be called tomorrow to get her current meds and do the med rec. Charges/Coding Visit Charges OBSV E&M: 64354 Initial observation care L2 Procedures Hospitalists Procedures: 47637 Advncd Care Plan 30 Min
[2022-07-03 15:59] VITALS: BP 129/69; PULSE 72; RESP 14; TEMP 36.8; O2SAT 96
[2022-07-03 17:08] VITALS: BMI 22.3
[2022-07-03 18:18] VITALS: BP 125/56; PULSE 66; RESP 15; TEMP 36.6; O2SAT 96
[2022-07-03] MEDS: oxyCODONE 5 MG Tablet PO (19:51)
[2022-07-03] MEDS: Acetaminophen 325 MG Tablet 650 MG PO (19:51)
[2022-07-03 20:00] VITALS: BP 116/53; PULSE 88; RESP 18; TEMP 36.9; O2SAT 94
[2022-07-03] MEDS: cycloBENZAPRine HCl 10 MG Tablet PO (20:35)
[2022-07-03 22:32] VITALS: BP 116/53; PULSE 88
[2022-07-03] MEDS: Metoprolol Tartrate 25 MG Tablet 75 MG PO (22:32)
[2022-07-03] MEDS: Magnesium Chloride 64 MG Delay Rel.Tablet 128 MG PO (22:32)
[2022-07-03] MEDS: Pravastatin 40 MG Tablet PO (22:33)
[2022-07-03] MEDS: MELATONIN 10 MG TABLET PO (22:33)
[2022-07-03] MEDS: Pantoprazole Sodium 40 MG Tablet PO (22:33)
[2022-07-03] MEDS: traZODone 50 MG Tablet PO (22:33)
[2022-07-03] MEDS: Doxycycline 100 MG CAPSULE PO (22:33)
[2022-07-03] MEDS: Pregabalin 50 MG Capsule PO (22:33)
[2022-07-03] MEDS: Multivitamin (Healthy Eyes) Capsule 1 CAP PO (22:33)
[2022-07-04] VITALS (7 sets, daily range): BP systolic 96–140; BP diastolic 50–73; PULSE 63–86; RESP 15–16; TEMP 36.4–36.6; O2SAT 91–97
[2022-07-04 05:06] LABS: Absolute Lymphocyte Count 1.85 X10^3/uL (0.83-4.51); Absolute Neutrophil Count 10.6 X10^3/uL (2.0-7.7); Basophil# 0.11 X10^3/uL; Basophil% 0.7 % (0-1); Eosinophil# 0.62 X10^3/uL; Eosinophils% 4.2 % (0-5); Hematocrit 39.5 % (37-47); Hemoglobin 13.1 g/dL (12.0-15.0); Lymphocyte # 1.85 X10^3/ul (0.83-4.51); Lymphocyte % 12.5 % (19-41); Mean Corp Hgb Conc 33.2 g/dL (32-36); Mean Corpuscular Hgb 35.5 pg (27.0-32.0); Mean Platelet Vol. 12.9 fl (6.2-12.0); Monocyte# 1.29 X10^3/uL; Monocyte% 8.7 % (0-10); NRBC Flagged by Analyzer 0.5 % (0-5); Neutrophil # 10.64 X10^3/uL (2.7-7.7); Neutrophil % 72.3 % (47-70); Platelet Count 225 K/mm3 (150-450); RBC Distribution Width SD 59.7 fl (35.1-43.9); Red Blood Count 3.69 M/mm3 (4.2-5.4); White Blood Count 14.8 K/mm3 (4.4-11.0)
[2022-07-04 05:34] LABS: Anion Gap 9 (5-15); BUN 19 mg/dL (7-18); BUN/Creat Ratio 19.3 RATIO (10-20); Calcium,Total 9.4 mg/dL (8.5-10.1); Chloride 96 mmol/L (98-107); Creatinine, Serum 0.99 mg/dL (0.55-1.02); EST Glomerular Filtration Rate 58 mL/min (>60); Est Glom Filt Rate - Afr Amer 70 mL/min (>60); Estimated Creatinine Clearance 38.48 ml/min; Glucose 192 mg/dL (74-106); Potassium 3.8 mmol/L (3.5-5.1); Sodium Level 136 mmol/L (136-145)
[2022-07-04] MEDS: Levothyroxine 50 MCG Tablet PO (06:16)
--- NOTE | 2022-07-04 08:11 | PN.HOSP_ITS ---
Subjective Subjective Patient is an 82-year-old lady admitted with intractable low back pain Objective Data Objective Data Vital Signs: Vital Signs Temp Pulse Resp BP Pulse Ox O2 Del Method O2 Flow Rate 97.9 F 86 16 140/73 H 91 Nasal Cannula 2 07/04/22 07:45 07/04/22 07:45 07/04/22 07:45 07/04/22 07:45 07/04/22 07:45 07/04/22 07:45 07/04/22 07:45 Oxygen Flow Rate (L/min) 2 Oxygen Delivery Method Nasal Cannula Weight: 58.967 kg Body Mass Index (BMI) 22.3 Intake & Output: Intake and Output for Last 24 Hours 07/02/22 07/03/22 07/04/22 23:59 23:59 23:59 Output Total 300 / 600 300 / 300 Balance -300 / -600 -300 / -300 Lab / Micro Data Result Diagrams: 07/04/22 04:27 07/04/22 04:27 Labs: Laboratory Results - last 24 hr 07/03/22 14:50: WBC 14.3 H, RBC 3.52 L, Hgb 12.4, Hct 37.1, MCV 105.4 H, MCH 35.2 H, MCHC 33.4, RDW Std Deviation 58.4 H, RDW Coeff of Ella 15.1 H, Plt Count 198, MPV 12.7 H, Immature Gran % (Auto) 1.300 H, Neut % (Auto) 77.9 H, Lymph % (Auto) 7.8 L, [place] % (Auto) 8.3, Eos % (Auto) 4.1, Baso % (Auto) 0.6, Absolute Neuts (auto) 11.1 H, Absolute Lymphs (auto) 1.11, Nucleated RBC % 0.1 07/03/22 14:50: Sodium 139, Potassium 3.6, Chloride 99, Carbon Dioxide 35.0 H, Anion Gap 5, BUN 18, Creatinine 0.87, Estim Creat Clear Calc 43.79, Est GFR (MDRD) Af Amer 80, Est GFR (MDRD) Non-Af 66, BUN/Creatinine Ratio 20.6 H, Glucose 151 H, Calcium 9.8, Total Bilirubin 1.20 H, AST 32, ALT 21, Alkaline Phosphatase 43 L, Total Protein 6.7, Albumin 3.2, Globulin 3.5, Albumin/Globulin Ratio 0.9 07/04/22 04:27: WBC 14.8 H, RBC 3.69 L, Hgb 13.1, Hct 39.5, MCV 107.0 H, MCH 35.5 H, MCHC 33.2, RDW Std Deviation 59.7 H, RDW Coeff of Ella 15.0 H, Plt Count 225, MPV 12.9 H, Immature Gran % (Auto) 1.600 H, Neut % (Auto) 72.3 H, Lymph % (Auto) 12.5 L, [place] % (Auto) 8.7, Eos % (Auto) 4.2, Baso % (Auto) 0.7, Absolute Neuts (auto) 10.6 H, Absolute Lymphs (auto) 1.85, Nucleated RBC % 0.5 07/04/22 04:27: Sodium 136, Potassium 3.8, Chloride 96 L, Carbon Dioxide 31.0, Anion Gap 9, BUN 19 H, Creatinine 0.99, Estim Creat Clear Calc 38.48, Est GFR (MDRD) Af Amer 70, Est GFR (MDRD) Non-Af 58 L, BUN/Creatinine Ratio 19.3, Glucose 192 H, Calcium 9.4 Radiography Diagnostic Testing: Radiology Impression Lumbar Spine X-Ray 07/03/22 14:34 IMPRESSION: Degenerative changes of the spine, as detailed above. Mild loss of height of the superior endplate of the L1 vertebrae. This has progressed as compared to prior study. Electronically Signed: Sal Hui MD at 15:29 EST , Physical Exam Narrative GENERAL: cooperative HEENT: Atraumatic; normocephalic EYES; Anicteric, Normal Conjunctiva NECK; supple, normal thyroid, RESPIRATORY: Diminished to auscultation CARDIOVASCULAR: Regular S1 S2, GI: soft, normoactive bowel sounds, : No Renal angle tenderness; EXTREMITIES: No edema, no clubbing, MUSCULOSKELETAL: no muscle wasting NEURO: Awake; no lateralizing signs. SKIN: No Rash PSYCH; Flat affect Assessment & Plan Assessment/Plan (1) Acute exacerbation of chronic low back pain: (2) Weakness: PLAN: Plan Patient is an 82-year-old lady admitted with intractable low back pain 1. Intractable low back pain ? Patient has been admitted to regular nursing floor for symptom management. 2. Hypothyroidism - Patient is on levothyroxine home dose continued 3. Hypertension - Blood pressure controlled, home medications continued with dose adjustment as needed 4. Dyslipidemia ? Patient is on fenofibrate and pravastatin did continue 5. COPD ? Currently not in exacerbation aerosol treatment as needed 6. Chronic congestive heart failure with reduced ejection fraction Patient not in exacerbation patient is on bumetanide and as well as spironolactone did continue 7. History of V. tach ? Patient has an AICD anxiety 8. Peripheral vascular disease ? Stable 9. Legal blindness ? Supportive care 10. Dementia ? Patient is on Aricept 11. Physical deconditioning - Requested for PT OT eval and social sciences professor to assist with discharge planning 12. DVT prophylaxis ? Lovenox Charges/Coding Visit Charges OBSV E&M: 57002 Subsequent observation care L2
[2022-07-04] MEDS: Bumetanide 0.5 MG Tablet PO ×2 (09:10→17:03)
[2022-07-04] MEDS: predniSONE 20 MG Tablet 40 MG PO (09:10)
[2022-07-04] MEDS: Aspirin E.C. 81 MG Tablet PO (09:10)
--- NOTE | 2022-07-04 09:10 | NURSING ---
SPOKE W/AUG AT [facility], CURRENT MED LIST REQUESTED TO BE FAXED TO [phone]
[2022-07-04] MEDS: Multivitamin (Healthy Eyes) Capsule 1 CAP PO ×2 (09:11→21:12)
[2022-07-04] MEDS: Doxycycline 100 MG CAPSULE PO (09:11)
[2022-07-04] MEDS: Spironolactone 25 MG Tablet PO (09:11)
[2022-07-04] MEDS: DULoxetine Hcl 60 MG Capsule PO (09:11)
[2022-07-04] MEDS: Isosorbide Mononitrate 30 MG Tablet PO (09:12)
[2022-07-04] MEDS: Metoprolol Tartrate 25 MG Tablet 75 MG PO ×2 (09:12→21:11)
[2022-07-04] MEDS: Pregabalin 50 MG Capsule PO ×2 (09:12→21:11)
[2022-07-04] MEDS: Pantoprazole Sodium 40 MG Tablet PO ×2 (09:12→21:11)
[2022-07-04] MEDS: Magnesium Chloride 64 MG Delay Rel.Tablet 128 MG PO ×2 (09:12→21:11)
[2022-07-04] MEDS: Fenofibrate 145 MG Tablet PO (09:13)
[2022-07-04] MEDS: oxyCODONE 5 MG Tablet PO ×3 (09:16→21:12)
[2022-07-04] MEDS: Acetaminophen 325 MG Tablet 650 MG PO (09:17)
--- NOTE | 2022-07-04 09:28 | CASEMGMT ---
Discharge Furnace Charger This mortgage or loan underwriter sent referral to [facility] via [facility]. Neville WAGONER Pin Sticker
--- NOTE | 2022-07-04 12:01 | CASEMGMT ---
Social Work SW in to discuss discharge planning with pt. Introduced self and role at the hospital. Pt agreeable to discussing. SW reviewed pt choice that was given to ED TOYIN Garcia last night. Pt confirmed [facility] is SNF of choice. SW informed pt that referral will be sent and that acceptance and insurance authorization will need to be obtained. Pt voiced understanding. PLAN: [facility], pending acceptance and precert TERESA Horton
[2022-07-04] MEDS: Ferrous Sulfate 325 MG Tablet PO (13:08)
--- NOTE | 2022-07-04 13:17 | CASEMGMT ---
DARCY CM in to discuss CEJA form with patient. RN CM explained CEJA form, patient voiced understanding. Pt signed form and filed in chart. Pt provided with a copy of signed CEJA form. Patient had no further questions or concerns at this time.
--- NOTE | 2022-07-04 13:21 | CASEMGMT ---
Discharge Receipt And Report Clerk This science writer checked up on referral. Waiting for response. Neville WAGONER Sld Teacher
--- NOTE | 2022-07-04 13:46 | CASEMGMT ---
Discharge Utilization Reviewer ALBARO reached out. Patient was declined Neville WAGONER Developer Relations Manager
--- NOTE | 2022-07-04 15:00 | CASEMGMT ---
Social work SW in to inform pt of non acceptance at [facility]. SW discussed alternative options with pt. A list of SNF providers including quality and resource use data and consistent with the patient?s preferred geographic region, medical needs, and insurance network were provided from the [facility] Guide. Pt second preferred provider is [facility]. Referral sent to [facility]. PLAN: [facility], pending acceptance and precert TERESA Horton
[2022-07-04] MEDS: cycloBENZAPRine HCl 10 MG Tablet PO (19:50)
[2022-07-04] MEDS: Pravastatin 40 MG Tablet PO (21:11)
[2022-07-04] MEDS: MELATONIN 10 MG TABLET PO (21:11)
[2022-07-04] MEDS: traZODone 50 MG Tablet PO (21:12)
[2022-07-05] VITALS (8 sets, daily range): BP systolic 101–110; BP diastolic 45–82; PULSE 57–68; RESP 16–18; TEMP 36.5–36.8; O2SAT 94–96
[2022-07-05] MEDS: Levothyroxine 50 MCG Tablet PO (05:27)
--- NOTE | 2022-07-05 07:31 | PCM.PN.HOSP ---
Subjective Subjective Patient seen pain is more tolerable compared to previous day. Patient was seen and evaluated by physical therapy recommendation is for patient to be discharged to assisted facility this was discussed with the patient and she is agreeable Objective Data Objective Data Vital Signs: Vital Signs Temp Pulse Resp BP Pulse Ox O2 Del Method O2 Flow Rate 97.8 F 68 16 108/65 95 Nasal Cannula 2 07/05/22 02:00 07/05/22 02:00 07/05/22 02:00 07/05/22 02:00 07/05/22 02:00 07/05/22 07:18 07/05/22 07:18 Oxygen Flow Rate (L/min) 2 Oxygen Delivery Method Nasal Cannula Weight: 58.967 kg Body Mass Index (BMI) 22.3 Intake & Output: Intake and Output for Last 24 Hours 07/03/22 07/04/22 07/05/22 23:59 23:59 23:59 Output Total 300 / 600 500 / 750 550 / 550 Balance -300 / -600 -500 / -750 -550 / -550 Lab / Micro Data Result Diagrams: 07/04/22 04:27 07/04/22 04:27 Physical Exam Narrative GENERAL: cooperative HEENT: Atraumatic; normocephalic EYES; Anicteric, Normal Conjunctiva NECK; supple, normal thyroid, RESPIRATORY: Diminished to auscultation CARDIOVASCULAR: Regular S1 S2, GI: soft, normoactive bowel sounds, : No Renal angle tenderness; EXTREMITIES: No edema, no clubbing, MUSCULOSKELETAL: no muscle wasting NEURO: Awake; no lateralizing signs. SKIN: No Rash PSYCH; Flat affect Assessment & Plan Assessment/Plan (1) Acute exacerbation of chronic low back pain: (2) Weakness: PLAN: Plan Patient is an 82-year-old lady admitted with intractable low back pain 1. Intractable low back pain ? Patient has been admitted to regular nursing floor for symptom management. 2. Hypothyroidism - Patient is on levothyroxine home dose continued 3. Hypertension - Blood pressure controlled, home medications continued with dose adjustment as needed 4. Dyslipidemia ? Patient is on fenofibrate and pravastatin did continue 5. COPD ? Currently not in exacerbation aerosol treatment as needed 6. Chronic congestive heart failure with reduced ejection fraction Patient not in exacerbation patient is on bumetanide and as well as spironolactone did continue 7. History of V. tach ? Patient has an AICD anxiety 8. Peripheral vascular disease ? Stable 9. Legal blindness ? Supportive care 10. Dementia ? Patient is on Aricept 11. Physical deconditioning - Requested for PT OT eval and long term care social worker to assist with discharge planning -07/05/2022 Patient seen pain is more tolerable compared to previous day. Patient was seen and evaluated by physical therapy recommendation is for patient to be discharged to assisted facility this was discussed with the patient and she is agreeable 12. DVT prophylaxis ? Lovenox Charges/Coding Visit Charges OBSV E&M: 88162 Initial observation care L2
--- NOTE | 2022-07-05 08:02 | CASEMGMT ---
Discharge Research Support Specialist [facility] accepted patient. This keno writer / runner asked Nicole to start pre-cert. Neville WAGONER Veterinary Milk Specialist
[2022-07-05] MEDS: Aspirin E.C. 81 MG Tablet PO (08:33)
[2022-07-05] MEDS: Bumetanide 0.5 MG Tablet PO ×2 (08:33→17:04)
[2022-07-05] MEDS: predniSONE 20 MG Tablet 40 MG PO (08:33)
[2022-07-05] MEDS: Pregabalin 50 MG Capsule PO ×2 (10:15→22:11)
[2022-07-05] MEDS: Fenofibrate 145 MG Tablet PO (10:15)
[2022-07-05] MEDS: Pantoprazole Sodium 40 MG Tablet PO ×2 (10:15→22:11)
[2022-07-05] MEDS: Magnesium Chloride 64 MG Delay Rel.Tablet 128 MG PO ×2 (10:15→22:11)
[2022-07-05] MEDS: cycloBENZAPRine HCl 10 MG Tablet PO (10:15)
[2022-07-05] MEDS: Isosorbide Mononitrate 30 MG Tablet PO (10:16)
[2022-07-05] MEDS: DULoxetine Hcl 60 MG Capsule PO (10:16)
[2022-07-05] MEDS: Multivitamin (Healthy Eyes) Capsule 1 CAP PO ×2 (10:16→22:11)
[2022-07-05] MEDS: Metoprolol Tartrate 25 MG Tablet 75 MG PO (10:16)
[2022-07-05] MEDS: Spironolactone 25 MG Tablet PO (10:16)
[2022-07-05] MEDS: Acetaminophen 325 MG Tablet 650 MG PO (13:56)
--- NOTE | 2022-07-05 13:58 | CASEMGMT ---
Social Work This SW anticipated level two evaluation for [facility] due to blindness DX. SW completed [facility] now while precert pending, hopeful that if all information included pt's discharge would not be delayed for long. Level two was, in fact needed. SW completed and uploaded ADL form to [facility] as supporting evidence. PLAN: [facility], pending precert TERESA Horton
--- NOTE | 2022-07-05 15:05 | CASEMGMT ---
Discharge Hourly Shift Pre-cert has been obtained at [facility]. TOYIN Cheung notified. Neville WAGONER Horse Stud Manager
[2022-07-05] MEDS: oxyCODONE 5 MG Tablet PO (15:43)
[2022-07-05] MEDS: MELATONIN 10 MG TABLET PO (22:11)
[2022-07-05] MEDS: Pravastatin 40 MG Tablet PO (22:11)
[2022-07-05] MEDS: traZODone 50 MG Tablet PO (22:11)
[2022-07-06 05:00] VITALS: BP 103/38; PULSE 55; RESP 16; TEMP 36.6; O2SAT 95
[2022-07-06] MEDS: Levothyroxine 50 MCG Tablet PO (05:52)
--- NOTE | 2022-07-06 07:00 | NURSING ---
Student nurse with patient today.
--- NOTE | 2022-07-06 07:27 | PCM.PN.HOSP ---
Subjective Subjective Patient seen pain is tolerable while laying in bed. Plan is for patient to be discharged [facility] pending bed availability Objective Data Objective Data Vital Signs: Vital Signs Temp Pulse Resp BP Pulse Ox O2 Del Method O2 Flow Rate 97.9 F 55 L 16 103/38 L 95 Nasal Cannula 3 07/06/22 05:00 07/06/22 05:00 07/06/22 05:00 07/06/22 05:00 07/06/22 05:00 07/06/22 05:00 07/06/22 05:00 Oxygen Flow Rate (L/min) 3 Oxygen Delivery Method Nasal Cannula Weight: 58.967 kg Body Mass Index (BMI) 22.3 Intake & Output: Intake and Output for Last 24 Hours 07/04/22 07/05/22 07/06/22 23:59 23:59 23:59 Intake Total 600 / 600 Output Total 500 / 750 1150 / 1150 800 / 800 Balance -500 / -750 -550 / -550 -800 / -800 Lab / Micro Data Result Diagrams: 07/04/22 04:27 07/04/22 04:27 Physical Exam Narrative GENERAL: cooperative HEENT: Atraumatic; normocephalic EYES; Anicteric, Normal Conjunctiva NECK; supple, normal thyroid, RESPIRATORY: Diminished to auscultation CARDIOVASCULAR: Regular S1 S2, GI: soft, normoactive bowel sounds, : No Renal angle tenderness; EXTREMITIES: No edema, no clubbing, MUSCULOSKELETAL: no muscle wasting NEURO: Awake; no lateralizing signs. SKIN: No Rash PSYCH; Flat affect Assessment & Plan Assessment/Plan (1) Acute exacerbation of chronic low back pain: (2) Weakness: PLAN: Plan Patient is an 82-year-old lady admitted with intractable low back pain 1. Intractable low back pain ? Patient has been admitted to regular nursing floor for symptom management. -07/06/2022 Patient seen pain is tolerable while laying in bed. Plan is for patient to be discharged [facility] pending bed availability 2. Hypothyroidism - Patient is on levothyroxine home dose continued 3. Hypertension - Blood pressure controlled, home medications continued with dose adjustment as needed 4. Dyslipidemia ? Patient is on fenofibrate and pravastatin did continue 5. COPD ? Currently not in exacerbation aerosol treatment as needed 6. Chronic congestive heart failure with reduced ejection fraction Patient not in exacerbation patient is on bumetanide and as well as spironolactone did continue 7. History of V. tach ? Patient has an AICD anxiety 8. Peripheral vascular disease ? Stable 9. Legal blindness ? Supportive care 10. Dementia ? Patient is on Aricept 11. Physical deconditioning - Requested for PT OT eval and neonatal social worker to assist with discharge planning -07/05/2022 Patient seen pain is more tolerable compared to previous day. Patient was seen and evaluated by physical therapy recommendation is for patient to be discharged [facility] this was discussed with the patient and she is agreeable 12. DVT prophylaxis ? Lovenox Charges/Coding Visit Charges Inpatient E&M: 30226 Subs Hosp L2
[2022-07-06 07:28] VITALS: O2SAT 94
[2022-07-06 07:51] VITALS: BP 117/46; PULSE 53; RESP 14; TEMP 35; O2SAT 92
[2022-07-06 10:33] VITALS: BP 112/40; PULSE 57
[2022-07-06] MEDS: predniSONE 20 MG Tablet 40 MG PO (10:35)
[2022-07-06] MEDS: Aspirin E.C. 81 MG Tablet PO (10:35)
[2022-07-06] MEDS: Bumetanide 0.5 MG Tablet PO ×2 (10:35→17:20)
[2022-07-06] MEDS: Isosorbide Mononitrate 30 MG Tablet PO (10:36)
[2022-07-06] MEDS: Spironolactone 25 MG Tablet PO (10:36)
[2022-07-06] MEDS: DULoxetine Hcl 60 MG Capsule PO (10:36)
[2022-07-06] MEDS: Multivitamin (Healthy Eyes) Capsule 1 CAP PO (10:36)
[2022-07-06] MEDS: Pregabalin 50 MG Capsule PO (10:37)
[2022-07-06] MEDS: Ferrous Sulfate 325 MG Tablet PO (10:37)
[2022-07-06] MEDS: Pantoprazole Sodium 40 MG Tablet PO (10:37)
[2022-07-06] MEDS: Fenofibrate 145 MG Tablet PO (10:37)
[2022-07-06] MEDS: Magnesium Chloride 64 MG Delay Rel.Tablet 128 MG PO (10:37)
[2022-07-06] MEDS: oxyCODONE 5 MG Tablet PO (10:38)
[2022-07-06] MEDS: Acetaminophen 325 MG Tablet 650 MG PO (10:38)
--- NOTE | 2022-07-06 10:45 | NURSING ---
BP 112/40 P 57, Dolly RN made aware and holding 75mg lopressor dose this AM. Pt aware.
[2022-07-06 13:37] VITALS: BP 119/52; PULSE 62; RESP 16; TEMP 36.6; O2SAT 93
--- NOTE | 2022-07-06 13:57 | TREXTCAR_ITS ---
Diet Diet Order/Speech Therapy: 07/03/22 17:20 Diet: Cardiac - Heart Healthy Food consistency:: Regular Liquid Consistency:: Regular/Thin Is pt able to select menu?: No Therapies Physical Therapy: Eval and Treat Occupational Therapy: Eval and Treat Problem/Diagnosis (1) Acute exacerbation of chronic low back pain: Status: Chronic Code(s): M54.50 - Low back pain, unspecified; G89.29 - Other chronic pain (2) Weakness: Status: Acute Code(s): R53.1 - Weakness Plan Patient is an 82-year-old lady admitted with intractable low back pain 1. Intractable low back pain ? Patient has been admitted to regular nursing floor for symptom management. -07/06/2022 Patient seen pain is tolerable while laying in bed. Plan is for patient to be discharged to residential facility pending bed availability 2. Hypothyroidism - Patient is on levothyroxine home dose continued 3. Hypertension - Blood pressure controlled, home medications continued with dose adjustment as needed 4. Dyslipidemia ? Patient is on fenofibrate and pravastatin did continue 5. COPD ? Currently not in exacerbation aerosol treatment as needed 6. Chronic congestive heart failure with reduced ejection fraction Patient not in exacerbation patient is on bumetanide and as well as spironolactone did continue 7. History of V. tach ? Patient has an AICD anxiety 8. Peripheral vascular disease ? Stable 9. Legal blindness ? Supportive care 10. Dementia ? Patient is on Aricept 11. Physical deconditioning - Requested for PT OT eval and social science instructor to assist with discharge planning -07/05/2022 Patient seen pain is more tolerable compared to previous day. Patient was seen and evaluated by physical therapy recommendation is for patient to be discharged to residential facility this was discussed with the patient and she is agreeable 12. DVT prophylaxis ? Lovenox Allergies/Procedures Done in Hospital Allergies No Known Allergies Allergy (Verified 07/03/22 11:35) Type of Care/Length of Stay Estimated LOS: Convalescent Care Less Than 30 days Type of Care Needed: Skilled Rehab Potential: Good Prognosis: Good Additional Orders/Day of Discharge Day of Discharge: 07/06/22 Discharge Plan Admission Admit Date/Time: 07/04/22 09:34 Attending Provider: Deo Weaver Primary Care Provider: Roscoe Bradley Consulting Providers: Koram,Nurys Mary Discharge Orders/Prescriptions Prescriptions: New cyclobenzaprine 10 mg Tablet 10 mg PO TID PRN PRN (Reason: muscle spasms) Qty: 0 0RF prednisone 20 mg Tablet 40 mg PO DAILY@0800 Qty: 0 0RF oxycodone 5 mg Tablet 5 mg PO Q6H PRN PRN (Reason: Pain Score 4-10) 2 Days Qty: 8 0RF Continued levothyroxine 75 MCG tablet 50 mcg PO DAILY Hold Instructions: Resume on 12/08/21. Repeat thyroid function test after 2 weeks duloxetine 60 MG capsule 60 mg PO DAILY cholecalciferol (vitamin D3) 50,000 UNIT capsule 50,000 unit PO MO trazodone 50 MG tablet 50 mg PO QHS aspirin 81 MG tablet 81 mg PO DAILY bumetanide 0.5 mg tablet 0.5 mg PO BIDCM Qty: 0 0RF magnesium 200 mg Tablet 400 mg PO BID pregabalin [Lyrica] 50 mg Capsule 50 mg PO BID pravastatin 40 mg Tablet 40 mg PO QHS fenofibrate 160 mg Tablet 160 mg PO DAILY spironolactone 25 mg tablet 25 mg PO DAILY pantoprazole [Protonix] 40 mg tablet,delayed release (DR/EC) 40 mg PO BID ferrous sulfate [FeroSul] 325 mg (65 mg iron) tablet 325 mg PO TUTHFR minerals Tablet 1 tab PO BID melatonin 10 mg Tablet 10 mg PO QHS PreserVision AREDS-2 250-90-40-1 mg Capsule 1 tab PO DAILY insulin glargine [Lantus Solostar U-100 Insulin] 100 unit/mL (3 mL) Insulin Pen 18 unit SUBCUT QHS isosorbide mononitrate 30 mg tablet extended release 24 hr 30 mg PO DAILY metoprolol tartrate 25 mg tablet 75 mg PO BID acetaminophen 500 mg tablet 650 mg PO Q4H PRN PRN (Reason: Pain) Referrals / Follow Up: Roscoe Bradley MD [Primary Care Provider] - Within 2 Weeks Disposition Disposition (needs filled in before D/C Order can be placed): [facility]
--- NOTE | 2022-07-06 14:02 | PCM.DC.SUM ---
Providers Date of Admission: 07/04/22 Date of Discharge: 07/06/22 Primary Care Physician: Roscoe Bradley MD Reason For Visit: WEAKNESS, BACK PAIN Diagnosis Discharge Diagnosis (1) Acute exacerbation of chronic low back pain: Status: Chronic Code(s): M54.50 - Low back pain, unspecified; G89.29 - Other chronic pain (2) Weakness: Status: Acute Code(s): R53.1 - Weakness Plan Patient is an 82-year-old lady admitted with intractable low back pain 1. Intractable low back pain ? Patient has been admitted to regular nursing floor for symptom management. -07/06/2022 Patient seen pain is tolerable while laying in bed. Plan [facility] 2. Hypothyroidism - Patient is on levothyroxine home dose continued 3. Hypertension - Blood pressure controlled, home medications continued with dose adjustment as needed 4. Dyslipidemia ? Patient is on fenofibrate and pravastatin did continue 5. COPD ? Currently not in exacerbation aerosol treatment as needed 6. Chronic congestive heart failure with reduced ejection fraction Patient not in exacerbation patient is on bumetanide and as well as spironolactone did continue 7. History of V. tach ? Patient has an AICD anxiety 8. Peripheral vascular disease ? Stable 9. Legal blindness ? Supportive care 10. Dementia ? Patient is on Aricept 11. Physical deconditioning - Requested for PT OT eval and public health social worker to assist with discharge planning -07/05/2022 Patient seen pain is more tolerable compared to previous day. Patient was seen and evaluated by physical therapy recommendation is for [facility] to be [facility] this was discussed with the patient and she is agreeable 12. DVT prophylaxis ? Lovenox Medications at Discharge Home Medications duloxetine 60 mg capsule,delayed release 60 mg PO DAILY depression 03/24/16 levothyroxine 75 mcg tablet 50 mcg PO DAILY thyroid 03/24/16 cholecalciferol (vitamin D3) 1,250 mcg (50,000 unit) capsule 50,000 unit PO MO supplement 09/18/16 trazodone 50 mg tablet 50 mg PO QHS sleep 10/11/18 aspirin 81 mg tablet,delayed release 81 mg PO DAILY heart health 11/28/18 bumetanide 0.5 mg tablet 0.5 mg PO BIDCM edema #0 tabs 11/25/21 magnesium 200 mg tablet 400 mg PO BID Supplement 12/16/21 pregabalin 50 mg capsule (Lyrica) 50 mg PO BID Nerve pain 12/16/21 fenofibrate 160 mg tablet 160 mg PO DAILY Cholesterol 01/08/22 ferrous sulfate 325 mg (65 mg iron) tablet (FeroSul) 325 mg PO TUTHFR Supplement 01/08/22 pantoprazole 40 mg tablet,delayed release (Protonix) 40 mg PO BID GERD 01/08/22 pravastatin 40 mg tablet 40 mg PO QHS Cholesterol 01/08/22 spironolactone 25 mg tablet 25 mg PO DAILY Water pill 01/08/22 melatonin 10 mg tablet 10 mg PO QHS Sleep 02/23/22 minerals 1 tab PO BID Supplement 02/23/22 vit C 250 mg-vit E 90 mg-zinc 40 mg-copper 1 [id number] capsule (PreserVision AREDS-2) 1 tab PO DAILY Supplement 02/23/22 insulin glargine 100 unit/mL (3 mL) subcutaneous pen (Lantus Solostar U-100 Insulin) 18 unit subcut QHS Diabetes 05/26/22 acetaminophen 500 mg tablet 650 mg PO Q4H PRN PRN Pain 07/03/22 isosorbide mononitrate 30 mg tablet,extended release 24 hr 30 mg PO DAILY Check with primary doctor 07/03/22 metoprolol tartrate 25 mg tablet 75 mg PO BID Check with primary doctor 07/03/22 cyclobenzaprine 10 mg tablet 10 mg PO TID PRN PRN muscle spasms #0 tabs 07/06/22 oxycodone 5 mg tablet 5 mg PO Q6H PRN PRN Pain Score 4-10 2 days #8 tabs 07/06/22 prednisone 20 mg tablet 40 mg PO DAILY@0800 #0 tabs 07/06/22 Hospital Course Summary of Care Provided Minutes Spent on Discharge: 35 Physical Exam Narrative GENERAL: cooperative HEENT: Atraumatic; normocephalic EYES; Anicteric, Normal Conjunctiva NECK; supple, normal thyroid, RESPIRATORY: Diminished to auscultation CARDIOVASCULAR: Regular S1 S2, GI: soft, normoactive bowel sounds, : No Renal angle tenderness; EXTREMITIES: No edema, no clubbing, MUSCULOSKELETAL: no muscle wasting NEURO: Awake; no lateralizing signs. SKIN: No Rash PSYCH; Flat affect Weight / BMI Weight Weight: 58.967 kg Body Mass Index (BMI) 22.3 ABG / Lab / Microbiology Data Result Diagrams: 07/04/22 04:27 07/04/22 04:27 D/C Instructions Discharge Diet: No restrictions Discharge Activity: Return to Normal Activity Call your doctor if you observe: Fever of 101 or Higher, Shortness of breath, Fainting spells and Chest pain Meaningful Use Info Meaningful Use Diagnoses (Choose all that apply): None applicable Discharge Plan Admission Admit Date/Time: 07/04/22 09:34 Attending Provider: Deo Weaver Primary Care Provider: Roscoe Bradley Consulting Providers: Nurys Montilla Discharge Orders/Prescriptions Prescriptions: New cyclobenzaprine 10 mg Tablet 10 mg PO TID PRN PRN (Reason: muscle spasms) Qty: 0 0RF prednisone 20 mg Tablet 40 mg PO DAILY@0800 Qty: 0 0RF oxycodone 5 mg Tablet 5 mg PO Q6H PRN PRN (Reason: Pain Score 4-10) 2 Days Qty: 8 0RF Continued levothyroxine 75 MCG tablet 50 mcg PO DAILY Hold Instructions: Resume on 12/08/21. Repeat thyroid function test after 2 weeks duloxetine 60 MG capsule 60 mg PO DAILY cholecalciferol (vitamin D3) 50,000 UNIT capsule 50,000 unit PO MO trazodone 50 MG tablet 50 mg PO QHS aspirin 81 MG tablet 81 mg PO DAILY bumetanide 0.5 mg tablet 0.5 mg PO BIDCM Qty: 0 0RF magnesium 200 mg Tablet 400 mg PO BID pregabalin [Lyrica] 50 mg Capsule 50 mg PO BID pravastatin 40 mg Tablet 40 mg PO QHS fenofibrate 160 mg Tablet 160 mg PO DAILY spironolactone 25 mg tablet 25 mg PO DAILY pantoprazole [Protonix] 40 mg tablet,delayed release (DR/EC) 40 mg PO BID ferrous sulfate [FeroSul] 325 mg (65 mg iron) tablet 325 mg PO TUTHFR minerals Tablet 1 tab PO BID melatonin 10 mg Tablet 10 mg PO QHS PreserVision AREDS-2 250-90-40-1 mg Capsule 1 tab PO DAILY insulin glargine [Lantus Solostar U-100 Insulin] 100 unit/mL (3 mL) Insulin Pen 18 unit SUBCUT QHS isosorbide mononitrate 30 mg tablet extended release 24 hr 30 mg PO DAILY metoprolol tartrate 25 mg tablet 75 mg PO BID acetaminophen 500 mg tablet 650 mg PO Q4H PRN PRN (Reason: Pain) Referrals / Follow Up: Roscoe Bradley MD [Primary Care Provider] - Within 2 Weeks Disposition Disposition (needs filled in before D/C Order can be placed): [facility] Facility Charges/Coding Visit Charges Inpatient E&M: 66737 Disch Hosp
--- NOTE | 2022-07-06 16:18 | CASEMGMT ---
Social Work Level II Categorical determination from [facility] received and pt ready for discharge to [facility]. Physician updated and feels pt can discharge today. SW met with pt and discussed discharge plan. Pt agreeable to transfer to [facility] today. PAS[facility], Results and Level II determination sent along with discharge orders to [facility] via [facility]. Transportation arranged with [facility] for [employer] via [facility]. With pt permission, phone call to pt marian Hernandez and updated on discharge plan. Nursing made aware. Phone call to [facility] and updated on pickup time. Disposition: [facility], skilled level of care TERESA Aaron
[2022-07-06 17:48] VITALS: BP 119/52; PULSE 60; RESP 18; TEMP 36.6; O2SAT 93
== END 2022-07-06 17:42 | disposition skilled nursing facility (03) ==
LOC: ED 14:52 → MS3 16:49
PROVIDERS: Admitting Provider Student in an Organized Health Care Education/Training Program; Emergency Provider Emergency Medicine; PCP Family Medicine; Visit Provider Internal Medicine
DX: M54.50 Low back pain, unspecified (principal); F03.90 Unspecified dementia, unspecified severity, without behavioral disturbance, psychotic disturbance, mood disturbance, and anxiety; J44.9 Chronic obstructive pulmonary disease, unspecified; I50.22 Chronic systolic (congestive) heart failure; I11.0 Hypertensive heart disease with heart failure; I48.0 Paroxysmal atrial fibrillation; E11.9 Type 2 diabetes mellitus without complications; Z79.4 Long term (current) use of insulin; R53.1 Weakness; I25.10 Atherosclerotic heart disease of native coronary artery without angina pectoris; Z87.891 Personal history of nicotine dependence; Z79.82 Long term (current) use of aspirin; G89.29 Other chronic pain; R53.81 Other malaise; I25.5 Ischemic cardiomyopathy; E78.5 Hyperlipidemia, unspecified; Z95.810 Presence of automatic (implantable) cardiac defibrillator; I25.2 Old myocardial infarction; Z79.899 Other long term (current) drug therapy; Z79.890 Hormone replacement therapy; E03.9 Hypothyroidism, unspecified
CPT/HCPCS: 36415; 72100; 80048; 80053; 85025; 87811; 96374; 96375; 97110; 97116; 97162; 97166; 97530; 97535; 99218; 99285; A4216; G0378; J2405